=== PATIENT | male | born 1945 | race Caucasian/White ===

== ENCOUNTER 2019-10-14 19:59 | Inpatient (IN) | payer OTHER, SELFPAY ==
--- NOTE | ~2019-10-14 | XR_ITS ---
XR chest 1V portable 10/14/2019 21:03 Indication: Cough with shortness of breath. COVID. Procedure: AP portable chest Comparison: No prior studies for comparison. Findings: Cardiomegaly. Left lung clear. Right basilar airspace disease. No pleural effusion, edema o r pneumothorax. No acute osseous abnormality. Impression: 1: Right basilar airspace disease, compatible with pneumonia. Reviewed, dictated and finalized at location A. Impression: 1: Right basilar airspace disease, compatible with pneumonia.
--- NOTE | ~2019-10-14 | XR_ITS ---
EXAMINATION: XR chest 1V portable EXAM DATE: 10/18/2019 21:22 INDICATION: For distress. COVID 19 positive. TECHNIQUE: Frontal and lateral projections of the chest obtained and reviewed. Comparison is made to prior examination from 10/14/2019. FINDINGS: Previous exam had subsegmental right basilar airspace disease. There is now extensive right -sided peripheral airspace disease and smaller amount of left sided ill-defined airspace disease. Giv en history provided, most likely acute lung injury from underlying viral infection. Possible small pl eural effusions. No pneumothorax. Cardiac silhouette is enlarged but stable in size compared to prior exam. There is pulmonary vascular congestion. IMPRESSION: Progression of now extensive right, small left sided acute airspace disease. Reviewed, dictated and finalized at location A. IMPRESSION: Progression of now extensive right, small left sided acute airspac e disease.
--- NOTE | ~2019-10-14 | XR_ITS ---
EXAMINATION: XR chest 1V portable DATE: 10/20/2019 05:44 INDICATION: Shortness of breath. COVID-19 pneumonia. TECHNIQUE: A single frontal view of the chest was obtained. COMPARISON: Chest single view 10/18/2019 FINDINGS: There are patchy airspace opacities in all lung zones bilaterally. No pleural effusion or p neumothorax. Cardiomegaly is noted. IMPRESSION: 1. Diffuse lung disease with slight worsening on the left, consistent with pneumonia versus pulmonary edema versus acute respiratory distress syndrome (ARDS). 2. Cardiomegaly. Reviewed, dictated and finalized at location A. IMPRESSION: 1. Diffuse lung disease with slight worsening on the left, consistent with pneu monia versus pulmonary edema versus acute respiratory distress syndrome (ARDS). 2. Cardiomegaly.
--- NOTE | ~2019-10-14 | XR_ITS ---
EXAMINATION: XR chest 1V portable DATE: 10/21/2019 05:50 INDICATION: Shortness of breath. COVID-19 pneumonia. TECHNIQUE: A single frontal view of the chest was obtained. COMPARISON: Chest single view 10/20/2019 FINDINGS: There are patchy airspace opacities in all lung zones bilaterally, right worse than left. N o pleural effusion or pneumothorax. The heart size is normal. IMPRESSION: 1. Diffuse lung disease with slight improvement, consistent with pneumonia versus pulmonary edema xin missy acute respiratory distress syndrome (ARDS). Reviewed, dictated and finalized at location A. IMPRESSION: 1. Diffuse lung disease with slight improvement, consistent with pneumonia vers us pulmonary edema versus acute respiratory distress syndrome (ARDS).
[2019-10-14 20:12] VITALS: BP 121/64; PULSE 59; RESP 20; TEMP 36.8; O2SAT 96
--- NOTE | 2019-10-14 20:20 | ECG_ITS ---
Measurements Intervals Roann Rate: 59 P: 87 MS: 188 QRS: -29 QRSD: 121 T: 66 QT: 388 QTc: 385 Interpretive Statements SINUS BRADYCARDIA INTRAVENTRICULAR CONDUCTION DELAY DELAYED PRECORDIAL R/S TRANSITION BASELINE WANDER- I, II, AVR, AVL, AVF BORDERLINE ECG Electronically Signed On 10-15-2019 7:06:42 CDT by Wilfredo Hernández D.O.
[2019-10-14 20:47] LABS: Basophils Percent Auto 0.1 % (0.2-1.2); Eosinophils Absolute Auto 0.1 K/mm3 (0-0.3); Eosinophils Percent Auto 1.4 % (0-4.4); Hematocrit 28.3 % (42.0-52.0); Hemoglobin 9.2 g/dL (14.0-18.0); Immature Granulocyte Absolute 0.07 K/mm3 (0.00-0.031); Immature Granulocyte Percent A 0.8 % (0-0.5); Lymphocytes Absolute Auto 0.72 K/mm3 (0.9-3.2); Lymphocytes Percent Auto 8.3 % (18.3-44.2); Mean Corpuscular HGB Conc 32.5 g/dl (32-36); Mean Corpuscular Hemoglobin 29.7 pg (26-34); Mean Corpuscular Volume 91.3 fl (80-100); Mean Platelet Volume 9.8 fl (7.4-10.4); Monocytes Absolute Auto 0.5 K/mm3 (0.1-0.6); Monocytes Percent Auto 5.9 % (2.6-8.5); Neutrophils Absolute Auto 7.3 K/mm3 (1.3-6.7); Neutrophils Percent Auto 83.5 % (45.5-73.1); Platelet Count Result 150 k/mm3 (150-375); Red Cell Distribution Width 13.1 % (11.5-14.5); White Blood Count 8.7 K/mm3 (4.5-10.0)
--- NOTE | 2019-10-14 20:49 | ED.GENADULT ---
HPI - General Adult General Chief complaint: Unspecified Stated complaint: decreased appetite Time Seen by Provider: 10/14/19 20:02 Source: RN notes reviewed History of Present Illness HPI narrative: Patient presents emergency department from home via EMS for weakness. Patient states he was diagnosed with COVID-19 9 days ago. He states that he has been progressively more weak states he has had 2 episodes of diarrhea today as well as an episode of emesis. He denies any current abdominal pain he states he has been having intermittent fevers he denies any chest pain. He does state he has been having remittent shortness of breath with a cough Related Data Home Medications Medication Instructions Recorded Confirmed amlodipine 10 mg PO DAILY 10/14/19 10/14/19 atorvastatin 20 mg PO DAILY 10/14/19 10/14/19 carvedilol 25 mg PO BID 10/14/19 10/14/19 glimepiride 1 mg PO DAILY 10/14/19 10/14/19 lisinopril 10 mg PO DAILY 10/14/19 10/14/19 patiromer calcium sorbitex 8.4 g PO DAILY 10/14/19 10/14/19 [Veltassa] sitagliptin [Januvia] 100 mg PO DAILY 10/14/19 10/14/19 Allergies Allergy/AdvReac Type Severity Reaction Status Date / Time Sulfa (Sulfonamide Allergy Unknown Verified 10/14/19 20:18 Antibiotics) Review of Systems Review of Systems: Narrative: Gen.: Reports fevers and chills Eyes: Denies eye pain or visual change ENT: Denies congestion Respiratory: Reports cough and shortness of breath CV: Denies chest pain or palpitations GI: Denies abdominal pain reports nausea vomiting and diarrhea Musculoskeletal: Denies back pain or muscle pain Neuro: Denies numbness, tingling, weakness or focal weakness Skin: Denies rash Except as documented, all other systems reviewed and negative [facility] Past Medical History Medical History (Updated 10/14/19 @ 22:50 by Casimiro Linda DO) Chronic renal insufficiency Social History Social History (Updated 10/14/19 @ 21:41 by Casimiro Linda DO) Smoking status: Never smoker Exam Narrative: Exam Narrative: APPEARANCE: No acute distress, nontoxic, resting in bed EYES: EOMI HEENT: Normocephalic, atraumatic, oromucosa dry RESPIRATORY: No respiratory distress Clear to auscultation bilaterally with no rhonchi wheezing or rales. CARDIOVASCULAR: Regular rate and rhythm without murmurs rubs or gallops. ABDOMINAL: Soft, nontender, nondistended, no rebound or guarding MUSCULOSKELETAl: Moves all extremities. No clubbing, cyanosis or edema. NEURO: Awake and alert. Following commands, speech normal, no focal deficits SKIN:: Warm, dry. No rashes lesions or abrasions PSYCHIATRIC: Normal affect/mood, Course Course Emergency Course: Patient states he has a history of chronic renal insufficiency followed by Dr. salguero does not know baseline creatinine Discussed with Dr. Marcelino presentation work-up agrees with admission at this time Discussed with patient and family results of workup and diagnosis. Discussed need for admission. Patient and family understand and agree to current treatment plan Vital Signs Vital signs: Vital Signs Temperature 98.2 F 10/14/19 20:12 Pulse Rate 59 L 10/14/19 20:12 Respiratory Rate 20 10/14/19 20:12 Blood Pressure 121/64 10/14/19 20:12 Pulse Oximetry 96 10/14/19 20:12 Temperature 98.2 F 10/14/19 20:12 Pulse Rate 64 10/14/19 22:27 Respiratory Rate 20 10/14/19 22:27 Blood Pressure 125/66 10/14/19 22:27 Pulse Oximetry 98 10/14/19 22:27 Medical Decision Making Vital Signs Vital Signs: Vital Signs Temperature 98.2 F 10/14/19 20:12 Pulse Rate 59 L 10/14/19 20:12 Respiratory Rate 20 10/14/19 20:12 Blood Pressure 121/64 10/14/19 20:12 Pulse Oximetry 96 10/14/19 20:12 Temperature 98.2 F 10/14/19 20:12 Pulse Rate 64 10/14/19 22:27 Respiratory Rate 20 10/14/19 22:27 Blood Pressure 125/66 10/14/19 22:27 Pulse Oximetry 98 10/14/19 22:27 Lab Data Result diagrams: 10/14/19 20:40
[2019-10-14 20:56] LABS: INR 0.9; Prothrombin Time 12.3 Seconds (11.1-14.7)
[2019-10-14 20:57] LABS: Partial Thromboplastin Time 32.5 SECONDS (22.3-36.8)
[2019-10-14 20:58] VITALS: BP 134/68; PULSE 60; RESP 20; O2SAT 97
[2019-10-14 21:01] LABS: Lactic Acid Reflex 0.6 mmol/L (0.7-2.1)
[2019-10-14 21:02] LABS: Alanine Aminotransferase 18 U/L (4-50); Albumin Level 3.4 g/dL (3.5-5.1); Alkaline Phosphatase 89 U/L (38-126); Aspartate Amino Transferase 30 U/L (17-59); Bilirubin,Total 0.2 mg/dL (0.2-1.3); Blood Urea Nitrogen 57 mg/dL (9-20); Calcium 8.2 mg/dL (8.4-10.2); Carbon Dioxide 19 mmol/L (22-30); Chloride 110 mmol/L (98-107); Estimated Glomerular Filt Rate 18; Glucose 128 mg/dL (75-110); Lipase 158 U/L (23-300); Potassium 4.8 mmol/L (3.4-5.0); Sodium 137 mmol/L (137-145)
[2019-10-14] MEDS: SODIUM CHLORIDE 0.9% IV 1,000 ML 999 ML IV CONT (21:05)
[2019-10-14 21:53] LABS: Add Urine Microscopic? YES; Appearance Urine Clear (Clear); Bacteria Urine Trace /hpf; Bilirubin Urine Negative (Negative); Blood Urine Negative (Negative); Color Urine Yellow (Yellow); Glucose Urine UA Negative (Negative); Ketones Urine Negative (Negative); Leukocyte Esterase Ur Negative LEU/UL (Negative); Mucus Urine Rare /lpf; Nitrate Urine Negative (Negative); Protein Urine 2+ mg/dL (Negative); RBC Urine 0-2 /hpf (0-2); Specific Grav Ur 1.016 (1.001-1.035); Squamous Epithelial Cell Urine Rare /hpf (Few); Urobilinogen Urine Negative mg/dL (<2.0); WBC Urine 0-3 /hpf
[2019-10-14 22:27] VITALS: BP 125/66; PULSE 64; RESP 20; O2SAT 98
[2019-10-14 22:59] VITALS: BP 139/69; PULSE 67; RESP 20; O2SAT 97
[2019-10-14 23:46] VITALS: BP 142/66; PULSE 68; RESP 20; O2SAT 97
[2019-10-15] VITALS (16 sets, daily range): BP systolic 118–145; BP diastolic 51–66; PULSE 56–78; RESP 14–22; TEMP 36.6–38.4; O2SAT 92–96; BMI 31.3
[2019-10-15] MEDS: SODIUM CHLORIDE 0.9% IV 1,000 ML 80 ML IV CONT ×2 (00:44→12:20)
--- NOTE | 2019-10-15 01:13 | ADMGEN ---
This patient, Abel Pike, was admitted to Intensive Care Unit-2 at 2355. Patient/family oriented to hospital policies and general routines including ID bracelet, bed and alarms, visiting hours, pain management, procedures, bathroom and other care routines, personal items, smoking policy, room service/diet, and visiting hours. Valuables list has been completed. Information on how to activate the Rapid Response Team has been discussed. Patient/Family are encouraged to report perceived risks to care and to ask questions if they do not understand what they are told or what they should do.
[2019-10-15] MEDS: ACETAMINOPHEN 325 MG TABLET 650 MG PO ×2 (03:34→20:52)
--- NOTE | 2019-10-15 05:17 | PM.IMHP ---
H&P: HPI History of Present Illness Chief complaint: COVID-19 positive, acute renal insufficiency, Narrative: Date and time of patient contact: 10/15/2019 at 3:00 a.m. Abel Pike is a 74 year old male with a past medical history of chronic kidney disease, hypertension, type 2 diabetes mellitus and COVID-19 positive result 10 days ago who presented to the ER with nausea vomiting and diarrhea the patient reports that he has had a temperature as high as 101.9? at home that started 10 days ago. It was accompanied by fatigue. Three days later he had sudden onset of nausea vomiting and diarrhea that lasted 24 hours and resolved. On he has had a mild nonproductive cough. He denies any loss of taste or smell but has developed nasal congestion over the last 3 days. He does have a history of chronic sinusitis and chronic postnasal drip for which she has slept in a recliner for the last 10 years. He denies any chest pain but has had some mild shortness of breath. On the he had a return of the nausea vomiting and diarrhea and decided to return to the ER for evaluation. He has not noticed any significant lower extremity swelling and denies any calf pain. He denies any known recent ill contacts but does do all the shopping for him and his . He has been trying to minimize his 's exposure to ill contacts that she has a history of COPD. He does think that his now has COVID-19 but she is having much milder symptoms than he has. He has had a mild headache. He denies any visual changes or localized weakness. Source of information is patient report. The patient is a fairly good historian. Review of Systems Review of Systems: Narrative: 12 systems were reviewed with pertinent positives and negatives per HPI. Except as documented in the HPI, all other systems were reviewed and are negative. 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 Abnormal some on the left hand Eczema Essential hypertension Hyperlipidemia Prostate cancer With history of cryoablation Type 2 diabetes mellitus Ulcer Surgical History Surgical History (Updated 10/15/19 @ 05:25 by Rebecca Marcelino DO) Status post cataract extraction of both eyes with insertion of intraocular lens Family History Family History (Updated 10/15/19 @ 05:27 by Rebecca Marcelino DO) Father Lung cancer Mother Ovarian cancer Daughter Chronic lung disease Morbid obesity Social History Social History (Updated 10/15/19 @ 05:30 by Rebecca Marcelino DO) Social History: Primary care physician: Dr. Srikanth Danielson Code status: Full code Smoking status: Never smoker Alcohol intake: never Alcohol use details: The patient only rarely drink and only in moderation but quit drinking in 1975 when he found J[facility]ani. Substance use: never Additional living arrangements comments: He lives in [place] with his of 43 years. He has total of 6 children 5 of which are still living and her relatively healthy. He had 1 daughter who of morbid obesity and chronic lung disease. He is independent in activities of daily living. 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 Gender identity (if verbalized by the patient): Male Spiritual care concerns: No Meds Home Medications and Allergies Home Medications Medication Instructions Recorded Confirmed Type amlodipine 10 mg PO DAILY 10/14/19 10/14/19 History atorvastatin 20 mg PO DAILY 10/14/19 10/14/19 History carvedilol 25 mg PO BID 10/14/19 10/14/19 History glimepiride 1 mg PO DAILY 10/14/19 10/14/19 History lisinopril 10 mg PO DAILY 10/14/19 10/14/19 History kurtis
[2019-10-15 06:14] LABS: Basophils Percent Auto 0.1 % (0.2-1.2); Eosinophils Absolute Auto 0.1 K/mm3 (0-0.3); Eosinophils Percent Auto 1.2 % (0-4.4); Hematocrit 25.8 % (42.0-52.0); Hemoglobin 8.3 g/dL (14.0-18.0); Immature Granulocyte Absolute 0.09 K/mm3 (0.00-0.031); Immature Granulocyte Percent A 1.2 % (0-0.5); Lymphocytes Absolute Auto 0.88 K/mm3 (0.9-3.2); Mean Corpuscular HGB Conc 32.2 g/dl (32-36); Mean Corpuscular Hemoglobin 29.6 pg (26-34); Mean Corpuscular Volume 92.1 fl (80-100); Mean Platelet Volume 9.6 fl (7.4-10.4); Monocytes Absolute Auto 0.5 K/mm3 (0.1-0.6); Monocytes Percent Auto 6.3 % (2.6-8.5); Neutrophils Absolute Auto 5.8 K/mm3 (1.3-6.7); Neutrophils Percent Auto 79.2 % (45.5-73.1); Platelet Count Result 143 k/mm3 (150-375); Red Cell Distribution Width 12.9 % (11.5-14.5); White Blood Count 7.3 K/mm3 (4.5-10.0)
[2019-10-15 06:23] LABS: Blood Urea Nitrogen 52 mg/dL (9-20); Calcium 7.7 mg/dL (8.4-10.2); Carbon Dioxide 18 mmol/L (22-30); Chloride 114 mmol/L (98-107); Estimated CRCL calculation 23 ml/min; Estimated Glomerular Filt Rate 19; Glucose 94 mg/dL (75-110); Potassium 4.5 mmol/L (3.4-5.0); Sodium 139 mmol/L (137-145)
[2019-10-15] MEDS: lisinopriL 10 MG TABLET PO (09:37)
[2019-10-15] MEDS: HEPARIN SODIUM 5,000 UNITS/ML VIAL 5000 UNITS SUB-Q ×2 (09:37→20:39)
[2019-10-15] MEDS: AMLODIPINE BESYLATE 5 MG TABLET 10 MG PO (09:37)
[2019-10-15] MEDS: carvediloL 25 MG TABLET PO ×2 (09:37→20:39)
[2019-10-15] MEDS: ATORVASTATIN 20 MG TABLET PO (09:37)
[2019-10-15 10:07] LABS: D Dimer 1.64 ug/mL (<0.48)
[2019-10-15 10:09] LABS: CRP 6.7 mg/dL (<1.0)
--- NOTE | 2019-10-15 10:39 | PC.NURSE ---
This patient, Abel Pike, was received from [icu ] on 10/15/19 at 1039. Patient/family oriented to unit policies and routines
--- NOTE | 2019-10-15 10:44 | PC.NURSE ---
This patient, Abel Pike, was transferred to [330 m/s ] on 10/15/19 at 1030. Personal belongings sent with patient. 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 Report given to [janett shetty rn ]. Appropriate documentation sent with patient.
[2019-10-15 12:23] LABS: Glucose Point of Care 199 (65-105)
--- NOTE | 2019-10-15 17:25 | PM.IMPN ---
Progress Note: A&P Assessment and Plan (1) Pneumonia due to COVID-19 virus: Code(s): U07.1 - COVID-19; J12.89 - Other viral pneumonia Status: Acute Assessment and Plan: Will continue antibiotic therapy with azithromycin. Patient did receive 1 dose of Rocephin. If blood cultures remain negative will discontinue Rocephin. Patient does not have an oxygen requirement but does have periods where his oxygen saturations dropped to 92%. Continue supportive care and airborne isolation. 10/15/19 17:25 Patient with COVID-19 with diagnosed 9 days ago, states today the 1st time he was able to eat his symptoms have improved denies any cough fever or chills denies any abdominal pain, (2) Acute on chronic renal failure: Code(s): N17.9 - Acute kidney failure, unspecified; N18.9 - Chronic kidney disease, unspecified Status: Acute Assessment and Plan: Likely due to some mild volume depletion. The patient accidentally took a dose of ibuprofen 9 or 10 days ago. He has not had any further ibuprofen and Tylenol has been helping his fever. Will continue low-dose lisinopril as this may have a productive of affect with COVID-19. Will hold the patient's home glimepiride will also hold the patient's Januvia given his drop in renal function. The patient's baseline creatinine is not known but the patient is followed by Dr. Morton. If is repeat electrolyte panel does not demonstrate improvement in his renal function nephrology will be consulted. Due to a computer entry glitch patient had initially been admitted to IMU. The patient is hemodynamically stable and will transfer to [address] [place] [address] surg. Subjective Date/time seen: 10/15/19 17:25 Patient with COVID-19 with diagnosed 9 days ago, states today the 1st time he was able to eat his symptoms have improved denies any cough fever or chills denies any abdominal pain, Review of Systems Review of Systems: All systems reviewed & are unremarkable except as noted in HPI and below Exam Narrative: Exam Narrative: Patient was seen in the room but not examine temperature is 99? pulses cyst respiratory is 18, pulse ox is 94% at room air blood pressure is 120/54 Const: General: comfortable and no acute distress Neck: Other: No retraction Resp: Effort & Inspection: normal respiratory effort GI: Other: Nondistended Skin: General skin exam: normal color Neuro: Speech: normal speech Extrem: General: normal to inspection Psych: Affect: Anxious affect present Objective Data Vital Signs Vital Signs: Vital Signs - 24 hr 10/14/19 20:12 10/14/19 20:58 10/14/19 22:27 Temperature 98.2 F Pulse Rate 59 L 60 64 Respiratory Rate 20 20 20 Blood Pressure 121/64 134/68 125/66 Pulse Oximetry 96 97 98 10/14/19 22:59 10/14/19 23:46 10/15/19 00:00 Temperature 101 F H Pulse Rate 67 68 69 Respiratory Rate 20 20 22 H Blood Pressure 139/69 142/66 H 130/59 L Pulse Oximetry 97 97 95 10/15/19 03:34 10/15/19 03:57 10/15/19 04:00 Temperature 101.1 F H 101 F H Pulse Rate 71 72 Respiratory Rate 17 Blood Pressure Pulse Oximetry 92 10/15/19 04:34 10/15/19 04:59 10/15/19 06:17 Temperature 101 F H 98.4 F Pulse Rate Respiratory Rate Blood Pressure 118/54 L Pulse Oximetry 10/15/19 08:00 10/15/19 09:37 10/15/19 14:00 Temperature 97.8 F 99.0 F Pulse Rate 62 62 5 L Respiratory Rate 14 18 Blood Pressure 145/66 H 120/54 L Pulse Oximetry 96 94 Intake/Output Intake/Output: Intake & Output 10/12/19 10/13/19 10/14/19 10/15/19 23:59 23:59 23:59 23:59 Intake Total 1050 1470 Output Total 250 Balance 1050 1220 Meds/Results Medications: Active Medications Generic Name Dose Route Start Last Admin Trade Name Freq PRN Reason Stop Dose Admin Acetaminophen 650 mg 10/15/19 02:20 10/15/19 03:34 Tylenol Tablet PO 650 mg Q4H PRN Administration Mild Pain (1-3) or Fever Amlodipine Besylate 10 mg 10/15/19 09:00
[2019-10-15 21:53] LABS: Glucose Point of Care 140 (65-105)
[2019-10-16] VITALS (7 sets, daily range): BP systolic 121–146; BP diastolic 59–63; PULSE 62–77; RESP 16–20; TEMP 36.7–37.5; O2SAT 93–95
[2019-10-16] MEDS: SODIUM CHLORIDE 0.9% IV 1,000 ML 80 ML IV CONT ×2 (04:56→17:45)
[2019-10-16 06:04] LABS: Glucose Point of Care 132 (65-105)
[2019-10-16 06:41] LABS: Basophils Percent Auto 0.1 % (0.2-1.2); Eosinophils Absolute Auto 0.2 K/mm3 (0-0.3); Eosinophils Percent Auto 2.8 % (0-4.4); Hematocrit 24.4 % (42.0-52.0); Hemoglobin 7.7 g/dL (14.0-18.0); Immature Granulocyte Absolute 0.12 K/mm3 (0.00-0.031); Immature Granulocyte Percent A 1.5 % (0-0.5); Lymphocytes Absolute Auto 1.08 K/mm3 (0.9-3.2); Lymphocytes Percent Auto 13.3 % (18.3-44.2); Mean Corpuscular HGB Conc 31.6 g/dl (32-36); Mean Corpuscular Hemoglobin 29.4 pg (26-34); Mean Corpuscular Volume 93.1 fl (80-100); Mean Platelet Volume 9.3 fl (7.4-10.4); Monocytes Absolute Auto 0.6 K/mm3 (0.1-0.6); Monocytes Percent Auto 7.3 % (2.6-8.5); Neutrophils Absolute Auto 6.1 K/mm3 (1.3-6.7); Platelet Count Result 142 k/mm3 (150-375); Red Blood Count 2.62 M/mm3 (4.6-6.20); Red Cell Distribution Width 13.1 % (11.5-14.5); White Blood Count 8.1 K/mm3 (4.5-10.0)
[2019-10-16 07:00] LABS: Alanine Aminotransferase 17 U/L (4-50); Albumin Level 2.8 g/dL (3.5-5.1); Alkaline Phosphatase 79 U/L (38-126); Aspartate Amino Transferase 30 U/L (17-59); Bilirubin,Total 0.1 mg/dL (0.2-1.3); Blood Urea Nitrogen 50 mg/dL (9-20); CRP 7.9 mg/dL (<1.0); Calcium 7.5 mg/dL (8.4-10.2); Carbon Dioxide 18 mmol/L (22-30); Chloride 115 mmol/L (98-107); Estimated CRCL calculation 23 ml/min; Estimated Glomerular Filt Rate 19; Glucose 99 mg/dL (75-110); Potassium 4.5 mmol/L (3.4-5.0); Sodium 140 mmol/L (137-145)
[2019-10-16] MEDS: AMLODIPINE BESYLATE 5 MG TABLET 10 MG PO (09:09)
[2019-10-16] MEDS: ATORVASTATIN 20 MG TABLET PO (09:09)
[2019-10-16] MEDS: lisinopriL 10 MG TABLET PO (09:09)
[2019-10-16] MEDS: HEPARIN SODIUM 5,000 UNITS/ML VIAL 5000 UNITS SUB-Q ×2 (09:10→21:29)
[2019-10-16 09:31] LABS: Glucose Point of Care 101 (65-105)
[2019-10-16] MEDS: carvediloL 25 MG TABLET PO ×2 (09:31→20:41)
[2019-10-16 13:30] LABS: Glucose Point of Care 90 (65-105)
--- NOTE | 2019-10-16 17:11 | PM.IMPN ---
Progress Note: A&P Assessment and Plan (1) Pneumonia due to COVID-19 virus: Code(s): U07.1 - COVID-19; J12.89 - Other viral pneumonia Status: Acute Assessment and Plan: Will continue antibiotic therapy with azithromycin. Patient did receive 1 dose of Rocephin. If blood cultures remain negative will discontinue Rocephin. Patient does not have an oxygen requirement but does have periods where his oxygen saturations dropped to 92%. Continue supportive care and airborne isolation. 10/16/19 17:11 Patient with COVID-19 with diagnosed 10 days ago, stated on 10/14 the 1st time he was able to eat his meal, symptoms have improved denies any cough fever or chills denies any abdominal pain, still has low-grade fever (2) Acute on chronic renal failure: Code(s): N17.9 - Acute kidney failure, unspecified; N18.9 - Chronic kidney disease, unspecified Status: Acute Assessment and Plan: Likely due to some mild volume depletion. The patient accidentally took a dose of ibuprofen 9 or 10 days ago. He has not had any further ibuprofen and Tylenol has been helping his fever. Will continue low-dose lisinopril as this may have a productive of affect with COVID-19. Will hold the patient's home glimepiride will also hold the patient's Januvia given his drop in renal function. The patient's baseline creatinine is not known but the patient is followed by Dr. Morton. If is repeat electrolyte panel does not demonstrate improvement in his renal function nephrology will be consulted. Due to a computer entry glitch patient had initially been admitted to IMU. The patient is hemodynamically stable and will transfer to [address] [place] [address] surg. Subjective Date/time seen: 10/16/19 17:11 Patient with COVID-19 with diagnosed 10 days ago, stated on 10/14 the 1st time he was able to eat his meal, symptoms have improved denies any cough fever or chills denies any abdominal pain, still has low-grade fever Review of Systems Review of Systems: All systems reviewed & are unremarkable except as noted in HPI and below Exam Narrative: Exam Narrative: Patient was seen in the room but not examine temperature temperature is 99? pulse is 70 respiratory is 9 pulse ox 94% on room air blood pressure is 146/62 Const: General: comfortable and no acute distress Neck: Other: No retraction Resp: Effort & Inspection: normal respiratory effort GI: Other: Nondistended Skin: General skin exam: normal color Neuro: Speech: normal speech Extrem: General: normal to inspection Psych: Affect: Anxious affect present Objective Data Vital Signs Vital Signs: Vital Signs - 24 hr 10/15/19 18:00 10/15/19 19:30 10/15/19 20:39 Temperature 100.4 F H Pulse Rate 69 78 Respiratory Rate 18 20 Blood Pressure 134/63 Pulse Oximetry 96 94 10/15/19 20:52 10/15/19 21:48 10/15/19 21:50 Temperature 100.7 F H 100.7 F H 100.5 F H Pulse Rate 78 Respiratory Rate 18 Blood Pressure 123/51 L Pulse Oximetry 94 10/16/19 02:00 10/16/19 05:54 10/16/19 09:31 Temperature 98.5 F 98.0 F Pulse Rate 62 69 71 Respiratory Rate 20 18 Blood Pressure 138/63 121/59 L Pulse Oximetry 94 95 10/16/19 10:00 Temperature 99.0 F Pulse Rate 71 Respiratory Rate 19 Blood Pressure 146/62 H Pulse Oximetry 94 Intake/Output Intake/Output: Intake & Output 10/13/19 10/14/19 10/15/19 10/16/19 23:59 23:59 23:59 23:59 Intake Total 1050 2720 1200 Output Total 250 75 Balance 1050 2470 1125 Meds/Results Medications: Active Medications Generic Name Dose Route Start Last Admin Trade Name Freq PRN Reason Stop Dose Admin Acetaminophen 650 mg 10/15/19 02:20 10/15/19 20:52 Tylenol Tablet PO 650 mg Q4H PRN Administration Mild Pain (1-3) or Fever Amlodipine Besylate 10 mg 10/15/19 09:00 10/16/19 09:09 Norvasc PO 10 mg DAILY ALENA Administration Atorvastatin Calcium 20 mg 10/15/19 09:00 10/16/19 09:09 Lipitor PO 20
[2019-10-16 18:32] LABS: Glucose Point of Care 81 (65-105)
[2019-10-16 21:31] LABS: Glucose Point of Care 124 (65-105)
[2019-10-17] VITALS (12 sets, daily range): BP systolic 121–140; BP diastolic 49–66; PULSE 60–77; RESP 16–20; TEMP 37–38; O2SAT 93–97; BMI 31.5
[2019-10-17] MEDS: ACETAMINOPHEN 325 MG TABLET 650 MG PO ×2 (05:57→22:43)
[2019-10-17] MEDS: SODIUM CHLORIDE 0.9% IV 1,000 ML 80 ML IV CONT ×2 (06:03→18:35)
[2019-10-17 06:25] LABS: Basophils Percent Auto 0.1 % (0.2-1.2); Eosinophils Absolute Auto 0.2 K/mm3 (0-0.3); Eosinophils Percent Auto 3.2 % (0-4.4); Hematocrit 24.4 % (42.0-52.0); Hemoglobin 7.6 g/dL (14.0-18.0); Immature Granulocyte Absolute 0.12 K/mm3 (0.00-0.031); Immature Granulocyte Percent A 1.7 % (0-0.5); Lymphocytes Absolute Auto 0.92 K/mm3 (0.9-3.2); Lymphocytes Percent Auto 13.4 % (18.3-44.2); Mean Corpuscular HGB Conc 31.1 g/dl (32-36); Mean Corpuscular Hemoglobin 29.1 pg (26-34); Mean Corpuscular Volume 93.5 fl (80-100); Mean Platelet Volume 9.4 fl (7.4-10.4); Monocytes Absolute Auto 0.5 K/mm3 (0.1-0.6); Monocytes Percent Auto 7.6 % (2.6-8.5); Neutrophils Absolute Auto 5.1 K/mm3 (1.3-6.7); Platelet Count Result 167 k/mm3 (150-375); Red Blood Count 2.61 M/mm3 (4.6-6.20); Red Cell Distribution Width 12.9 % (11.5-14.5); White Blood Count 6.9 K/mm3 (4.5-10.0)
[2019-10-17 06:35] LABS: Alanine Aminotransferase 18 U/L (4-50); Albumin Level 2.7 g/dL (3.5-5.1); Alkaline Phosphatase 71 U/L (38-126); Aspartate Amino Transferase 31 U/L (17-59); Bilirubin,Total 0.1 mg/dL (0.2-1.3); Blood Urea Nitrogen 46 mg/dL (9-20); CRP 8.3 mg/dL (<1.0); Calcium 7.6 mg/dL (8.4-10.2); Carbon Dioxide 18 mmol/L (22-30); Chloride 118 mmol/L (98-107); Estimated CRCL calculation 24 ml/min; Estimated Glomerular Filt Rate 21; Glucose 101 mg/dL (75-110); Potassium 4.7 mmol/L (3.4-5.0); Sodium 142 mmol/L (137-145)
[2019-10-17] MEDS: AMLODIPINE BESYLATE 5 MG TABLET 10 MG PO (09:30)
[2019-10-17] MEDS: HEPARIN SODIUM 5,000 UNITS/ML VIAL 5000 UNITS SUB-Q ×2 (09:30→20:57)
[2019-10-17] MEDS: ATORVASTATIN 20 MG TABLET PO (09:30)
[2019-10-17] MEDS: carvediloL 25 MG TABLET PO ×2 (09:30→20:57)
[2019-10-17] MEDS: lisinopriL 10 MG TABLET PO (09:30)
[2019-10-17 14:26] LABS: Glucose Point of Care 98 (65-105)
[2019-10-17 14:26] LABS: Glucose Point of Care 138 (65-105)
--- NOTE | 2019-10-17 18:26 | PM.IMPN ---
Progress Note: A&P Assessment and Plan (1) Pneumonia due to COVID-19 virus: Code(s): U07.1 - COVID-19; J12.89 - Other viral pneumonia Status: Acute Assessment and Plan: Will continue antibiotic therapy with azithromycin. Patient did receive 1 dose of Rocephin. If blood cultures remain negative will discontinue Rocephin. Patient does not have an oxygen requirement but does have periods where his oxygen saturations dropped to 92%. Continue supportive care and airborne isolation. 10/17/19 18:26 Patient with COVID-19 with diagnosed 10 days ago, stated on 10/14 the 1st time he was able to eat his meal, symptoms have improved denies any cough fever or chills denies any abdominal pain, still has low-grade fever, number of BM are improving however he feels tired and has low-grade fever (2) Acute on chronic renal failure: Code(s): N17.9 - Acute kidney failure, unspecified; N18.9 - Chronic kidney disease, unspecified Status: Acute Assessment and Plan: Likely due to some mild volume depletion. The patient accidentally took a dose of ibuprofen 9 or 10 days ago. He has not had any further ibuprofen and Tylenol has been helping his fever. Will continue low-dose lisinopril as this may have a productive of affect with COVID-19. Will hold the patient's home glimepiride will also hold the patient's Januvia given his drop in renal function. The patient's baseline creatinine is not known but the patient is followed by Dr. Morton. If is repeat electrolyte panel does not demonstrate improvement in his renal function nephrology will be consulted. Due to a computer entry glitch patient had initially been admitted to IMU. The patient is hemodynamically stable and will transfer to [address] [place] [address] surg. Subjective Date/time seen: 10/17/19 18:26 Patient with COVID-19 with diagnosed 10 days ago, stated on 10/14 the 1st time he was able to eat his meal, symptoms have improved denies any cough fever or chills denies any abdominal pain, still has low-grade fever, number of BM are improving however he feels tired and has low-grade fever Review of Systems Review of Systems: All systems reviewed & are unremarkable except as noted in HPI and below Exam Narrative: Exam Narrative: Patient was seen in the room but not examine temperature temperature is 98.6 pulse is 63 respiratory is 16 pulse ox 97% on room air blood pressure is 122/54 Const: General: comfortable and no acute distress Neck: Other: No retraction Resp: Effort & Inspection: normal respiratory effort GI: Other: Nondistended Skin: General skin exam: normal color Neuro: Speech: normal speech Extrem: General: normal to inspection Psych: Affect: Anxious affect present Objective Data Vital Signs Vital Signs: Vital Signs - 24 hr 10/16/19 20:41 10/16/19 22:00 10/17/19 02:00 Temperature 99.5 F 99.4 F Pulse Rate 77 68 73 Respiratory Rate 16 18 Blood Pressure 135/62 136/66 Pulse Oximetry 95 93 10/17/19 05:57 10/17/19 06:00 10/17/19 09:30 Temperature 99.5 F 99.5 F Pulse Rate 67 64 Respiratory Rate 20 Blood Pressure 129/59 L Pulse Oximetry 95 10/17/19 10:00 10/17/19 14:00 10/17/19 16:52 Temperature 98.7 F 98.6 F 98.8 F Pulse Rate 60 63 Respiratory Rate 16 16 Blood Pressure 121/63 122/54 L Pulse Oximetry 95 97 Intake/Output Intake/Output: Intake & Output 10/14/19 10/15/19 10/16/19 10/17/19 23:59 23:59 23:59 23:59 Intake Total 1050 2720 3170 2040 Output Total 250 275 500 Balance 1050 2470 2895 1540 Meds/Results Medications: Active Medications Generic Name Dose Route Start Last Admin Trade Name Rehanq PRN Reason Stop Dose Admin Acetaminophen 650 mg 10/15/19 02:20 10/17/19 05:57 Tylenol Tablet PO 650 mg Q4H PRN Administration Mild Pain (1-3) or Fever Amlodipine Besylate 10 mg 10/15/19 09:00 10/17/19 09:30 Norvasc PO 10 mg DAILY ALENA Administration Atorvastatin Calcium 20 mg 0
[2019-10-17 19:08] LABS: Glucose Point of Care 153 (65-105)
[2019-10-18] VITALS (14 sets, daily range): BP systolic 127–156; BP diastolic 50–84; PULSE 67–76; RESP 14–28; TEMP 36.6–37.3; O2SAT 77–95
[2019-10-18 01:42] LABS: Glucose Point of Care 136 (65-105)
[2019-10-18 06:12] LABS: Basophils Percent Auto 0.3 % (0.2-1.2); Eosinophils Absolute Auto 0.2 K/mm3 (0-0.3); Eosinophils Percent Auto 2.4 % (0-4.4); Hematocrit 23.8 % (42.0-52.0); Hemoglobin 7.6 g/dL (14.0-18.0); Immature Granulocyte Percent A 1.4 % (0-0.5); Lymphocytes Absolute Auto 0.91 K/mm3 (0.9-3.2); Lymphocytes Percent Auto 13.1 % (18.3-44.2); Mean Corpuscular HGB Conc 31.9 g/dl (32-36); Mean Corpuscular Hemoglobin 29.7 pg (26-34); Mean Platelet Volume 9.1 fl (7.4-10.4); Monocytes Absolute Auto 0.6 K/mm3 (0.1-0.6); Monocytes Percent Auto 8.1 % (2.6-8.5); Neutrophils Absolute Auto 5.2 K/mm3 (1.3-6.7); Neutrophils Percent Auto 74.7 % (45.5-73.1); Platelet Count Result 165 k/mm3 (150-375); Red Blood Count 2.56 M/mm3 (4.6-6.20); Red Cell Distribution Width 12.9 % (11.5-14.5)
[2019-10-18 06:29] LABS: Alanine Aminotransferase 19 U/L (4-50); Albumin Level 2.8 g/dL (3.5-5.1); Alkaline Phosphatase 71 U/L (38-126); Aspartate Amino Transferase 29 U/L (17-59); Bilirubin,Total 0.2 mg/dL (0.2-1.3); Blood Urea Nitrogen 39 mg/dL (9-20); Calcium 7.7 mg/dL (8.4-10.2); Carbon Dioxide 18 mmol/L (22-30); Chloride 120 mmol/L (98-107); Estimated CRCL calculation 27 ml/min; Estimated Glomerular Filt Rate 23; Glucose 127 mg/dL (75-110); Potassium 4.6 mmol/L (3.4-5.0); Sodium 143 mmol/L (137-145)
[2019-10-18 06:37] LABS: CRP 13.9 mg/dL (<1.0)
[2019-10-18] MEDS: AMLODIPINE BESYLATE 5 MG TABLET 10 MG PO (09:01)
[2019-10-18] MEDS: HEPARIN SODIUM 5,000 UNITS/ML VIAL 5000 UNITS SUB-Q ×2 (09:01→19:45)
[2019-10-18] MEDS: lisinopriL 10 MG TABLET PO (09:01)
[2019-10-18] MEDS: ATORVASTATIN 20 MG TABLET PO (09:01)
[2019-10-18] MEDS: carvediloL 25 MG TABLET PO (09:01)
[2019-10-18] MEDS: SODIUM CHLORIDE 0.9% IV 1,000 ML 80 ML IV CONT ×2 (09:03→19:45)
[2019-10-18 09:27] LABS: Glucose Point of Care 126 (65-105)
[2019-10-18] MEDS: ACETAMINOPHEN 325 MG TABLET 650 MG PO ×2 (12:43→23:04)
[2019-10-18 15:53] LABS: Glucose Point of Care 135 (65-105)
[2019-10-18 17:02] LABS: Glucose Point of Care 120 (65-105)
--- NOTE | 2019-10-18 17:57 | PM.IMPN ---
Progress Note: A&P Assessment and Plan (1) Pneumonia due to COVID-19 virus: Code(s): U07.1 - COVID-19; J12.89 - Other viral pneumonia Status: Acute Assessment and Plan: Will continue antibiotic therapy with azithromycin. BC are negative to date, so rocephin was stopped. Continue iv azithromycin and Iv fluids and oxygen Patient still symptomatic with fever, SOB and cough Continue to monitor Sats, watch for any further desaturation CXR for tomorrow Continue supportive care with IV abx, oxygen add albuterol nebuliser treatments or prednisone tomorrow if no better. Rpt cxr tomorrow Can discharge on medrol dose pack and zithromax on discharge (2) Acute on chronic renal failure: Code(s): N17.9 - Acute kidney failure, unspecified; N18.9 - Chronic kidney disease, unspecified Status: Acute Assessment and Plan: Likely due to dehydration and lisinopril and ibuprofen use Creat is 2.7 continue to hydrate Stop lisinopril creat is high increase coreg for BP control (3) Anemia, chronic disease: Code(s): D63.8 - Anemia in other chronic diseases classified elsewhere Status: Acute Assessment and Plan: HB is 7.6 may be dilutional effect continue to monitor or secondary to CKD Subjective Date/time seen: 10/18/19 17:57 Interval history: Patient with COVID-19 with diagnosed 10 days ago, stated on 10/14 the 1st time he was able to eat his meal, symptoms, still symptomatic with low grade fevers and SOB. Pt started on 2 liters today for respiratory distress. Cxr on admission showing pneumonia. Hopeful dischrage tomorrow if pt feels better, will rpt CXR ifrah prior to discharge. got sick taking care of who is also hospitalized. Pt SOB today with wet cough. Pt had low grade fevers last night. Express concerns about his Review of Systems Review of Systems: ROS unobtainable: Yes other (low grade fevers lethargy ) Respiratory: Respiratory: Reports chest congestion, Reports cough and Reports dyspnea Exam Narrative: Exam Narrative: Temp Pulse Resp BP Pulse Ox 37.3 C 70 24 H 127/62 92 10/18/19 14:00 10/18/19 14:00 10/18/19 14:00 10/18/19 14:00 10/18/19 17:16 Pleasant nature Pt looks unwell, SOB at rest Wet cough RRR Coarse breath sounds BL Objective Data Vital Signs Vital Signs: Vital Signs - 24 hr 10/17/19 18:00 10/17/19 20:57 10/17/19 22:00 Temperature 37.0 C 38.0 C H Pulse Rate 70 77 76 Respiratory Rate 18 20 Blood Pressure 124/49 L 140/61 Pulse Oximetry 94 93 10/17/19 22:43 10/17/19 23:40 10/18/19 02:00 Temperature 38.0 C H 37.7 C H 36.6 C Pulse Rate 70 Respiratory Rate 20 Blood Pressure 128/50 L Pulse Oximetry 95 10/18/19 06:00 10/18/19 09:01 10/18/19 10:00 Temperature 37.2 C 37.3 C Pulse Rate 70 76 73 Respiratory Rate 18 14 Blood Pressure 141/68 H 156/59 H Pulse Oximetry 95 93 10/18/19 14:00 10/18/19 15:00 10/18/19 16:09 Temperature 37.3 C Pulse Rate 70 Respiratory Rate 24 H Blood Pressure 127/62 Pulse Oximetry 89 L 87 L 92 10/18/19 17:16 Temperature Pulse Rate Respiratory Rate Blood Pressure Pulse Oximetry 92 Intake/Output Intake/Output: Intake & Output 10/15/19 10/16/19 10/17/19 10/18/19 23:59 23:59 23:59 23:59 Intake Total 2720 3170 3840 1650 Output Total 577 274 2277 950 Balance 2470 2895 2840 700 Meds/Results Medications: Active Medications Generic Name Dose Route Start Last Admin Trade Name Freq PRN Reason Stop Dose Admin Acetaminophen 650 mg 10/15/19 02:20 10/18/19 12:43 Tylenol Tablet PO 650 mg Q4H PRN Administration Mild Pain (1-3) or Fever Amlodipine Besylate 10 mg 10/15/19 09:00 10/18/19 09:01 Norvasc PO 10 mg DAILY ALENA Administration Atorvastatin Calcium 20 mg 10/15/19 09:0
[2019-10-18] MEDS: carvediloL 25 MG TABLET 50 MG PO (19:44)
[2019-10-18 20:09] LABS: Glucose Point of Care 121 (65-105)
[2019-10-18] MEDS: ALBUTEROL SULFATE (*SP) AEROSOL 1 PUFF 6 PUFF INHALATION (21:29)
[2019-10-18 21:32] LABS: Base Excess ABG -9.4 mEq/l (+/-2.0); Carboxyhemoglobin 0.2 % THb (0-2.0); Fractional Inspired Oxygen 36 %; HCO3 ABG 15.4 mEq/l (22.0-26.0); Methemoglobin ABG 0.5 %THb (0-1.5); Oxygen Content ABG 10.7 %vol (16.0-22.0); Oxygen Saturation ABG 92.1 % (95.0-100.0); PCO2 ABG 29.5 mmHg (35.0-45.0); PO2 ABG 65.5 mmHg (80.0-100.0); PO2 FiO2 Ratio Arterial Blood 1.82 %; Reduced Hemoglobin 8.3 %THb (0-5.0); Total Hemoglobin 8.3 g/dL (12.0-18.0); pH ABG 7.336 (7.350-7.450)
[2019-10-18 21:33] LABS: Lactate Dehydrogenase 636 U/L (313-618)
[2019-10-18 21:33] LABS: Modified Allen's Test Pass; Site Drawn RIGHT RADIAL
[2019-10-18 21:34] LABS: D Dimer 2.73 ug/mL (<0.48)
[2019-10-18 21:34] LABS: Device NASAL CANNULA
[2019-10-18] MEDS: FUROSEMIDE INJ 40 MG/4 ML VIAL (22:07)
--- NOTE | 2019-10-18 22:08 | PM.EVENT ---
Event Note Event Note Event Note: I received a call from nursing staff around 9:00 p.m. that the patient was having increasing oxygen requirement. When nursing staff did the rounds they found the patient to have sats in the mid 70s on 2 L nasal cannula. The nurse reports that the patient was also having increased work of breathing from baseline (the nurses is very familiar with the patient from prior multiple days of care). Patient's temperature is currently 99.6? after receiving Tylenol. His last fever was at midnight on the . On review of the patient's chart the patient's CRP has been climbing since admission. Initially his CRP was 6.7 is now 13.9. The patient was initially placed on some mild IV fluid hydration given his acute on chronic renal failure. The patient's creatinine had decreased down to 2.7 which is closer to his baseline however IV fluids were still continued. The patient is fluid positive by 10 L since admission. Patient's IV fluids have now been stopped. Had a chest x-ray since admissions will repeat chest x-ray was performed which demonstrated progression of now extensive right and small left-sided airspace disease. There was also some pulmonary vascular congestion noted on x-ray. They abnormalities could be due to acute lung injury given his COVID-19 infection and a component of fluid overload. A stat ferritin, LDH, D-dimer and ABG Were also ordered. By the time the patient's labs had resulted the patient's oxygen requirement had climbed to 6 L. and his respiratory rate had climbed to 28. An order for Lasix 40 mg IV push was ordered. I contacted the cement tester assistant to discuss the patient's clinical course and he agrees with plan to transfer the patient to the ICU given his rapid change in clinical status. He recommended adding Rocephin for antibiotic coverage. The patient is on day 4/5 of azithromycin. Temperature 99? pulse 69 respiratory rate 22 blood pressure 136/84 oxygen saturation on 6 L nasal cannula GENERAL: Mildly ill-appearing, appears stated age HEENT: Positive conjunctival pallor, pupils equal and reactive, nares patent, mucous membranes moist CARDIOVASCULAR: Regular rate, regular rhythm with frequent ectopy RESPIRATORY: Tachypnea, accessory muscle use, coarse breath sounds bilaterally ABDOMEN: Distended, nontender, positive bowel sounds INTEGUMENT: Diaphoretic, pale, warm to touch NEUROLOGIC: Alert and oriented, speech is clear, no facial asymmetry PSYCHIATRIC: Pleasant, cooperative, joking with staff EXTREMITIES: 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 COVID-19 infection 2. Acute hypoxic respiratory failure 3. Fluid overload Plan: Lasix 40 mg IV stat check a stat BMP Continue azithromycin in add Rocephin Add albuterol inhalers and Spiriva Titrate supplemental oxygen to maintain oxygen saturations above 88% Transferred ICU for closer monitoring 45 minutes spent in critical care activities
[2019-10-18 22:36] LABS: NT Pro B Type Natriuretic Pept 11700 PG/ML (5-100)
[2019-10-19] VITALS (20 sets, daily range): BP systolic 137–158; BP diastolic 57–71; PULSE 65–71; RESP 15–24; TEMP 36.8–37.3; O2SAT 92–100
--- NOTE | 2019-10-19 | ECHO_ITS ---
Patient Info Name: Abel Pike Age: 74 years : 1945 Gender: Male Ht: 70 in Wt: 220 lbs BSA: 2.25 m2 HR: 59 bpm BP: 153 / 71 mmHg Heart Rhythm: Sinus Rhythm Technical Quality: Good Exam Date: 10/19/2019 10:11 AM Exam Location: [facility] Pulmonary Patient Status: Inpatient Admit Date: 10/16/2019 Staff Ordering Physician: Matt Cantu MD Lap Cutter Truer Operator: Scott Wick RDCS, RT Attending Provider: Rebecca Marcelino DO Exam Type: CA echo doppler color flow Study Info Indications R06.02 - Shortness of breath Complete two-dimensional, color flow and Doppler transthoracic echocardiogram is performed. Summary 1. Normal left ventricular size with mild concentric left ventricular hypertrophy. Left ventricular function at the lower limit of normal, a estimated ejection fraction 50-55%. Grade 2 diastolic dysfunction is present. No focal wall motion abnormalities. 2. Left atrial chamber dimension is moderately enlarged. 3. No significant valvular heart disease. 4. Normal sinus rhythm with frequent PVCs. Left Ventricle Left ventricular chamber dimension is normal. Left ventricular systolic function is normal, estimated at 50-55%. There is mildly increased left ventricular wall thickness. Left ventricular septal wall motion is normal. The left ventricular diastolic function is grade II diastolic dysfunction. Normal left ventricular size with mild concentric left ventricular hypertrophy. Left ventricular function at the lower limit of normal, a estimated ejection fraction 50-55%. Grade 2 diastolic dysfunction is present. No focal wall motion abnormalities. Right Ventricle Right ventricular chamber dimension is normal. Right ventricular systolic function is normal. Left Atria Left atrial chamber dimension is moderately enlarged. Right Atria Right atrial chamber dimension is normal. Aortic Valve The aortic valve is trileaflet. There is no aortic valve sclerosis. There is no aortic valve stenosis. There is no aortic valve regurgitation. Pulmonic Valve The pulmonic valve is normal. There is no pulmonic valve stenosis. There is no pulmonic regurgitation. Mitral Valve The mitral valve has normal leaflets. There is no mitral valve stenosis. There is trace mitral valve regurgitation. Tricuspid Valve The tricuspid valve leaflets are normal. There is no significant tricuspid valve stenosis. There is trace tricuspid valve regurgitation. No pulmonary hypertension, estimated pulmonary arterial systolic pressure is Empty. Pericardium/Pleural The pericardium appears normal. There is no pericardial effusion. Inferior Vena Cava Normal inferior vena cava with >50% collapse upon inspiration consistent with Empty right atrial pressure, Empty. Aorta The aortic root size at the sinus of Valsalva is normal. The prox ascending aorta size is normal. Left Ventricular Outflow Tract Name Value Normal LVOT 2D LVOT Diameter 2.3 cm LVOT Doppler LVOT Peak Velocity 131 cm/s LVOT Peak Gradient 7 mmHg LVOT Mean Gradient 4 mmHg
--- NOTE | 2019-10-19 00:14 | PC.NURSE ---
This patient, Abel Pike, was received from [[id number] ] on 10/18/19 at 2250. Personal belongings list checked and signed. Patient/family oriented to unit policies and routines
[2019-10-19] MEDS: ALBUTEROL SULFATE (*SP) AEROSOL 1 PUFF 6 PUFF INHALATION ×4 (02:11→21:32)
[2019-10-19 07:07] LABS: Basophils Percent Auto 0.1 % (0.2-1.2); Eosinophils Absolute Auto 0.2 K/mm3 (0-0.3); Eosinophils Percent Auto 2.7 % (0-4.4); Hematocrit 23.4 % (42.0-52.0); Hemoglobin 7.6 g/dL (14.0-18.0); Immature Granulocyte Absolute 0.15 K/mm3 (0.00-0.031); Immature Granulocyte Percent A 1.8 % (0-0.5); Lymphocytes Absolute Auto 0.84 K/mm3 (0.9-3.2); Mean Corpuscular HGB Conc 32.5 g/dl (32-36); Mean Corpuscular Hemoglobin 29.6 pg (26-34); Mean Corpuscular Volume 91.1 fl (80-100); Mean Platelet Volume 9.2 fl (7.4-10.4); Monocytes Absolute Auto 0.7 K/mm3 (0.1-0.6); Monocytes Percent Auto 8.4 % (2.6-8.5); Neutrophils Absolute Auto 6.4 K/mm3 (1.3-6.7); Platelet Count Result 196 k/mm3 (150-375); Red Blood Count 2.57 M/mm3 (4.6-6.20); White Blood Count 8.4 K/mm3 (4.5-10.0)
[2019-10-19 07:28] LABS: Alanine Aminotransferase 22 U/L (4-50); Albumin Level 2.7 g/dL (3.5-5.1); Alkaline Phosphatase 75 U/L (38-126); Aspartate Amino Transferase 36 U/L (17-59); Bilirubin,Total 0.2 mg/dL (0.2-1.3); Blood Urea Nitrogen 34 mg/dL (9-20); Calcium 7.9 mg/dL (8.4-10.2); Carbon Dioxide 19 mmol/L (22-30); Chloride 119 mmol/L (98-107); Estimated CRCL calculation 30 ml/min; Estimated Glomerular Filt Rate 27; Glucose 116 mg/dL (75-110); Potassium 4.3 mmol/L (3.4-5.0); Sodium 144 mmol/L (137-145)
[2019-10-19] MEDS: FUROSEMIDE INJ 40 MG/4 ML VIAL IV PUSH (09:00)
[2019-10-19] MEDS: HEPARIN SODIUM 5,000 UNITS/ML VIAL 5000 UNITS SUB-Q ×3 (09:01→20:33)
[2019-10-19] MEDS: AMLODIPINE BESYLATE 5 MG TABLET 10 MG PO (09:01)
[2019-10-19] MEDS: ATORVASTATIN 20 MG TABLET PO (09:01)
[2019-10-19] MEDS: carvediloL 25 MG TABLET 50 MG PO ×2 (09:01→20:31)
--- NOTE | 2019-10-19 09:20 | WPDCNINT ---
Assessment and Plan Assessment and plan (1) Community acquired pneumonia: Code(s): J18.9 - Pneumonia, unspecified organism Status: Acute Assessment and Plan: Chest x-ray reviewed. He has bilateral infiltrate more on the right side compared to the left. Continue empiric antibiotics with ceftriaxone and azithromycin. Follow culture. Send sputum culture if he is able to produce any. (2) Pneumonia due to COVID-19 virus: Code(s): U07.1 - COVID-19; J12.89 - Other viral pneumonia Status: Acute Assessment and Plan: He has been diagnosed to have COVID-19 almost 10 days ago. Continue to monitor inflammatory markers. His CRP has been noticed to trend up. His ferritin is 832. LDH is 636. His oxygen requirement has decreased significantly since last night and is down to 2 L through nasal cannula. Later he was weaned down to room air now. I think fluid overload was 1 of the contributing factors. (3) Acute respiratory failure with hypoxemia: Code(s): J96.01 - Acute respiratory failure with hypoxia Status: Acute Assessment and Plan: His oxygen requirement is down to 2 L of oxygen through nasal cannula. Continue to wean him down if he is able to tolerate it. He is down to room air now. Chest x-ray with bilateral airspace disease more on the right side than the left. Continue to monitor his respiratory status closely. (4) Fluid overload: Code(s): E87.70 - Fluid overload, unspecified Status: Acute Assessment and Plan: He had a net positive fluid balance of 10 L since admission to the hospital. He received Lasix yesterday. He was given another dose of Lasix of 40 mg and he had a urine output of 1.7 L. Continue to monitor renal parameters and electrolyte. Strict intake output records. Will order an echocardiogram as well. (5) Acute on chronic renal failure: Code(s): N17.9 - Acute kidney failure, unspecified; N18.9 - Chronic kidney disease, unspecified Status: Acute Assessment and Plan: Continue to monitor renal parameters. Unclear baseline creatinine but he does seems to have chronic kidney disease. (6) Diabetes mellitus: Code(s): E11.9 - Type 2 diabetes mellitus without complications Status: Acute Assessment and Plan: Continue to hold oral hypoglycemic agents. Continue insulin sliding scale. (7) Hypertension: Code(s): I10 - Essential (primary) hypertension Status: Acute Assessment and Plan: Continue amlodipine and carvedilol. Continue to hold lisinopril for now. Continue to monitor hemodynamics closely. Additional Plan DVT prophylaxis subcu heparin GI prophylaxis not indicated Since he is down to room air now, he can be downgraded to telemetry floor. Critical care time spent for more than 35 minutes Due to a high probability of clinically significant, life threatening deterioration, the patient required my highest level of preparedness to intervene emergently and I personally spent this critical care time directly and personally managing the patient. This critical care time included obtaining a history; examining the patient; pulse oximetry; ordering and review of studies; arranging urgent treatment with development of a management plan; evaluation of patient's response to treatment; frequent reassessment; and discussions with other providers. It was exclusive of separately billable procedures and treating other patients and teaching time. Please see Assessment and Plan section and the rest of the note for further information on patient assessment and treatment. Monitoring Analyst Consult Note Consult date: 10/19/19 Time Seen: 10:11 HPI: Abel Pike is a 74 year old male with a past medical history of chronic kidney disease, hypertension, diabetes mellitus who came into the ED with complaints of nausea vomiting diarrhea fever cough and shortness of breath. He was diagnosed to have C
--- NOTE | 2019-10-19 10:45 | PCDIET ---
ICU Rounding Note: Patient consuming 50-100% of most meals on diabetic diet. RN reports intake of 70% of breakfast meal. Denies decreased appetite, but does not care for the food here. RN encouraging patient to try different options. Receiving Glucerna Shake BID. Last recorded weight is 100.2kg which is increased from last review. Patient now receiving diuretic. Bowel Motility: Diarrhea, per nursing notes. Labs Reviewed: Glu (116), BUN (34), Cr (2.4), Alb (2.7) Meds Noted: Albuterol, Zithromax, Rocephin, Novolog, s/p Lasix and NaHCO3 Additional Notes: Generalized scabs noted, but no pressure sores. Following daily in ICU rounds. Assessing/reassessing every 5 days.
--- NOTE | 2019-10-19 17:07 | PM.IMPN ---
Progress Note: A&P Assessment and Plan (1) Pneumonia due to COVID-19 virus: Code(s): U07.1 - COVID-19; J12.89 - Other viral pneumonia Status: Acute Assessment and Plan: Will continue antibiotic therapy with azithromycin iv for 3 days and rocephin iv BC are negative to date Sputum negative to date Pt is on RA Supportive care Hopeful discharge tomorrow (2) Acute on chronic renal failure: Code(s): N17.9 - Acute kidney failure, unspecified; N18.9 - Chronic kidney disease, unspecified Status: Acute Assessment and Plan: Likely due to dehydration and lisinopril and ibuprofen use Creat is 2.4 which is his baseline (3) Anemia, chronic disease: Code(s): D63.8 - Anemia in other chronic diseases classified elsewhere Status: Acute Assessment and Plan: HB is 7.6 may be dilutional effect continue to monitor or secondary to CKD (4) Fluid overload: Code(s): E87.70 - Fluid overload, unspecified Status: Acute Assessment and Plan: Over hydration with iv fluids pt responded well to iv lasix, stable for transfer back to medical floor. Pt would like to urinary catheter removed Pt is stable on RA, continue to watch saturation If pt does well overnight would like to be discharged home ifrah as has been discharged home today. Subjective Date/time seen: 10/19/19 17:07 Interval history: Patient with COVID-19 with diagnosed 10 days ago, stated on 10/14 the 1st time he was able to eat his meal, symptoms, still symptomatic with low grade fevers and SOB. Pt started on 2 liters today for respiratory distress. Cxr on admission showing pneumonia. Pt developed respiratory distress last night and was transfered to ICU. Pt at that time was on 10 liters. Pt is now on RA. Called pts room in ICU. Told him that the fluids, filled up his lungs and the lasix helped him , now he was going to be discharged back to the medical floor. Pt said he felt better today. No fevers, not so SOB but still has a small cough. Pt would like his urinary catheter taken out as it interferes with him getting up. Pt seen earlier by ICU attending. Stable to transfer back to medical floor. Review of Systems Review of Systems: All systems reviewed & are unremarkable except as noted in HPI and below Respiratory: Respiratory: Reports chest congestion and Reports cough Exam Narrative: Exam Narrative: Temp Pulse Resp BP Pulse Ox 37.3 C 70 24 H 127/62 92 10/18/19 14:00 10/18/19 14:00 10/18/19 14:00 10/18/19 14:00 10/18/19 17:16 Pt not fully examined Appears comfortable. Pt is on room air Pt has urinary catheter insitu Objective Data Vital Signs Vital Signs: Vital Signs - 24 hr 10/18/19 17:16 10/18/19 19:44 10/18/19 20:00 Temperature Pulse Rate 70 Respiratory Rate Blood Pressure Pulse Oximetry 92 77 L 10/18/19 21:00 10/18/19 21:30 10/18/19 21:37 Temperature 37.2 C Pulse Rate 67 69 Respiratory Rate 24 H 28 H 28 H Blood Pressure 136/84 Pulse Oximetry 94 88 L 94 10/18/19 23:04 10/19/19 00:00 10/19/19 00:33 Temperature 37.3 C 37.3 C Pulse Rate 70 69 Respiratory Rate 24 H 17 Blood Pressure 158/71 H Pulse Oximetry 99 97 10/19/19 00:37 10/19/19 02:00 10/19/19 02:12 Temperature 37.2 C Pulse Rate 66 69 Respiratory Rate 17 Blood Pressure Pulse Oximetry 10/19/19 02:13 10/19/19 04:00 10/19/19 06:00 Temperature 37.2 C Pulse Rate 68 65 67 Respiratory Rate 18 15 Blood Pressure 153/71 H Pulse Oximetry 98 100 10/19/19 08:00 10/19/19 08:15 10/19/19 10:00 Temperature 36.8 C Pulse Rate 69 65 Respiratory Rate 22 H 19 Blood Pressure 158/68 H 143/65 H Pulse Oximetry 95 96 95 10/19/19 12:00 10/19/19 13:30 10/19/19 14:00 Temperature 36.8 C Pulse Rate 65 69 69 Respi
[2019-10-19 19:15] LABS: Glucose Point of Care 130 (65-105)
[2019-10-19 19:15] LABS: Glucose Point of Care 151 (65-105)
[2019-10-19 20:48] LABS: Glucose Point of Care 192 (65-105)
[2019-10-20] VITALS (12 sets, daily range): BP systolic 120–155; BP diastolic 52–74; PULSE 62–68; RESP 14–26; TEMP 36.6–37.3; O2SAT 90–98
[2019-10-20] MEDS: ALBUTEROL SULFATE (*SP) AEROSOL 1 PUFF 6 PUFF INHALATION ×4 (02:57→20:45)
[2019-10-20] MEDS: HEPARIN SODIUM 5,000 UNITS/ML VIAL 5000 UNITS SUB-Q ×3 (04:48→22:15)
[2019-10-20 05:08] LABS: Basophils Percent Auto 0.1 % (0.2-1.2); Eosinophils Absolute Auto 0.3 K/mm3 (0-0.3); Eosinophils Percent Auto 3.8 % (0-4.4); Hematocrit 23.3 % (42.0-52.0); Hemoglobin 7.6 g/dL (14.0-18.0); Immature Granulocyte Absolute 0.17 K/mm3 (0.00-0.031); Immature Granulocyte Percent A 2.2 % (0-0.5); Lymphocytes Absolute Auto 0.95 K/mm3 (0.9-3.2); Lymphocytes Percent Auto 12.1 % (18.3-44.2); Mean Corpuscular HGB Conc 32.6 g/dl (32-36); Mean Corpuscular Hemoglobin 29.2 pg (26-34); Mean Corpuscular Volume 89.6 fl (80-100); Mean Platelet Volume 9.3 fl (7.4-10.4); Monocytes Absolute Auto 0.7 K/mm3 (0.1-0.6); Monocytes Percent Auto 8.4 % (2.6-8.5); Neutrophils Absolute Auto 5.8 K/mm3 (1.3-6.7); Neutrophils Percent Auto 73.4 % (45.5-73.1); Platelet Count Result 205 k/mm3 (150-375); White Blood Count 7.9 K/mm3 (4.5-10.0)
[2019-10-20 05:35] LABS: D Dimer 3.57 ug/mL (<0.48)
[2019-10-20 05:36] LABS: Alanine Aminotransferase 27 U/L (4-50); Albumin Level 2.8 g/dL (3.5-5.1); Alkaline Phosphatase 75 U/L (38-126); Aspartate Amino Transferase 37 U/L (17-59); Bilirubin,Total < 0.1 mg/dL (0.2-1.3); Blood Urea Nitrogen 34 mg/dL (9-20); CRP 16.3 mg/dL (<1.0); Calcium 8.1 mg/dL (8.4-10.2); Carbon Dioxide 22 mmol/L (22-30); Chloride 115 mmol/L (98-107); Estimated CRCL calculation 30 ml/min; Estimated Glomerular Filt Rate 27; Glucose 117 mg/dL (75-110); Potassium 4.2 mmol/L (3.4-5.0); Sodium 143 mmol/L (137-145)
[2019-10-20] MEDS: AMLODIPINE BESYLATE 5 MG TABLET 10 MG PO (08:32)
[2019-10-20] MEDS: carvediloL 25 MG TABLET 50 MG PO ×2 (08:32→22:14)
[2019-10-20] MEDS: ATORVASTATIN 20 MG TABLET PO (08:32)
[2019-10-20 11:10] LABS: Glucose Point of Care 159 (65-105)
--- NOTE | 2019-10-20 11:12 | PC.NURSE ---
at 045, pt up in room ambulating with cane, no assist of others, no shortness of breath, no complaints voiced
--- NOTE | 2019-10-20 11:37 | PCDIET ---
Nutrition Follow-Up Complete: Nutrition Diagnosis: Inadequate oral intake related to reduced appetite as evidence by mild weight loss. Nutrition Goal: Intake of 75% of meals and supplements to meet daily nutrition needs Goal met. Patient eating ~75% of meals on diabetic diet with Glucerna BID. Last recorded weight is 97.1 kg which is decreased. -I/O. Bowel Motility: +Diarrhea. Labs Reviewed: Glu (117), BUN (34), Alb (2.8), [place] Ca (9.72) Meds Noted: Albuterol, Zithromax, Rocephin, Novolog Additional Notes: No documented pressure sores. Will continue to monitor with same goals. Nutrition Monitoring and Evaluation: Follow up every 5 days.
--- NOTE | 2019-10-20 12:25 | PC.NURSE ---
Talked to Dr. Andino via phone and asked her of Abel was going to go home today, Doctor stated that she called and talked to him via phone and was going to keep him one more day for lasix treatment, no lasix ordered at this time, the Dr. Andino called backed and stated she talked to pt via phone and he was going to go home, Doctor called back again and stated he will stay one more not and she will order lasix, asked Dr. Andino each phone conversation if she was going to physically see her patient today and never received a direct answer
[2019-10-20] MEDS: FUROSEMIDE INJ 40 MG/4 ML VIAL 20 MG IV PUSH (13:45)
--- NOTE | 2019-10-20 16:07 | PC.NURSE ---
This patient, Abel Pike, was transferred to [facility] on 10/20/19 at 1600. Personal belongings sent with patient. Report given to RN. Appropriate documentation sent with patient.
--- NOTE | 2019-10-20 17:17 | PM.IMPN ---
Progress Note: A&P Assessment and Plan (1) Pneumonia due to COVID-19 virus: Code(s): U07.1 - COVID-19; J12.89 - Other viral pneumonia Status: Acute Assessment and Plan: Will continue antibiotic therapy with azithromycin iv and rocephin iv BC are negative to date Sputum negative to date Pt is on RA Supportive care Discharge tomorrow (2) Acute on chronic renal failure: Code(s): N17.9 - Acute kidney failure, unspecified; N18.9 - Chronic kidney disease, unspecified Status: Acute Assessment and Plan: Likely due to dehydration and lisinopril and ibuprofen use superimposed on CKD Creat is 2.4 which is his baseline (3) Anemia, chronic disease: Code(s): D63.8 - Anemia in other chronic diseases classified elsewhere Status: Acute Assessment and Plan: HB is 7.6 may be dilutional effect continue to monitor or secondary to CKD (4) Fluid overload: Code(s): E87.70 - Fluid overload, unspecified Status: Acute Assessment and Plan: Over hydration with iv fluids pt responded well to iv lasix, stable for transfer back to medical floor. If pt does well overnight would like to be discharged home ifrah as has been discharged home already. Pt wants to leave tomorrow. Continue iv lasix today. then transition to oral lasix for 5 days on discharge. Subjective Date/time seen: 10/20/19 17:17 Interval history: Patient with COVID-19 with diagnosed 10 days ago, stated on 10/14 the 1st time he was able to eat his meal, symptoms, still symptomatic with low grade fevers and SOB. Pt started on 2 liters today for respiratory distress. Cxr on admission showing pneumonia. Pt developed respiratory distress and was transfered to ICU. Pt at that time was on 10 liters. Pt is now on RA. Told the pt that the fluid, filled up his lungs and the lasix helped him, now he was going to be discharged back to the medical floor. Long discussion with pt over the phone in icu today as pt has not move yet to the floor. Pts cxr still shows pulmonary edema. pt will need to continue on iv lasix for one more day before dischrage. Pt is very keen to go home as his was discharged yesterday, wanted to to be discharged today I told him it will be early tomorrow. Pt feels much better no fever or sob mild cough only. Not on any oxygen. discussion about anemia pt states he has been anaemic for long time and kidney doctor is following him for that. Pt seen in the room, talking to his about coming home, no complaints feels much better, more energy not SOB, still has a mild cough, otherwise enjoying his dinner. very pleasant. Review of Systems Review of Systems: All systems reviewed & are unremarkable except as noted in HPI and below Cardiovascular: Cardiovascular: Denies chest pain Respiratory: Respiratory: Denies chest congestion, Reports cough and Denies dyspnea Exam Narrative: Exam Narrative: Temp Pulse Resp BP Pulse Ox 37.1 C 63 18 120/70 97 10/20/19 16:00 10/20/19 16:00 10/20/19 16:00 10/20/19 16:00 10/20/19 16:00 Comfortable pleasant Sitting up On RA Vitals stable No acute respiratory distress Eating dinner Objective Data Vital Signs Vital Signs: Vital Signs - 24 hr 10/19/19 18:00 10/19/19 20:00 10/19/19 20:31 Temperature 36.8 C 36.8 C Pulse Rate 65 71 69 Respiratory Rate 20 21 H Blood Pressure 156/63 H 150/68 H Pulse Oximetry 94 93 10/19/19 21:35 10/19/19 22:00 10/20/19 00:00 Temperature 37.3 C Pulse Rate 70 68 62 Respiratory Rate 24 H 24 H 26 H Blood Pressure 137/61 151/68 H Pulse Oximetry 93 92 94 10/20/19 02:00 10/20/19 04:00 10/20/19 06:00 Temperature Pulse Rate 67 64 63 Respiratory Rate 14 16 20 Blood Pressure 145/63 H 155/63 H 147/66 H Pulse Oximetry 90 91 92 10/20/19 08:00 06/0
[2019-10-20 18:18] LABS: Glucose Point of Care 140 (65-105)
[2019-10-20 20:55] LABS: Pneumococcal Antigen Urine Not Detected (Not Detected)
[2019-10-21 02:38] VITALS: BP 130/74; PULSE 63; RESP 20; TEMP 36.9; O2SAT 95
[2019-10-21] MEDS: ALBUTEROL SULFATE (*SP) AEROSOL 1 PUFF 6 PUFF INHALATION ×2 (02:47→08:49)
[2019-10-21 03:39] LABS: Glucose Point of Care 142 (65-105)
[2019-10-21 06:00] VITALS: BP 145/77; PULSE 60; RESP 20; TEMP 36.8; O2SAT 94
[2019-10-21] MEDS: HEPARIN SODIUM 5,000 UNITS/ML VIAL 5000 UNITS SUB-Q (06:21)
[2019-10-21 08:03] LABS: Basophils Percent Auto 0.4 % (0.2-1.2); Eosinophils Absolute Auto 0.3 K/mm3 (0-0.3); Eosinophils Percent Auto 4.6 % (0-4.4); Hematocrit 22.5 % (42.0-52.0); Hemoglobin 7.2 g/dL (14.0-18.0); Immature Granulocyte Absolute 0.15 K/mm3 (0.00-0.031); Lymphocytes Absolute Auto 0.85 K/mm3 (0.9-3.2); Lymphocytes Percent Auto 11.4 % (18.3-44.2); Mean Corpuscular Hemoglobin 29.3 pg (26-34); Mean Corpuscular Volume 91.5 fl (80-100); Mean Platelet Volume 9.6 fl (7.4-10.4); Monocytes Absolute Auto 0.6 K/mm3 (0.1-0.6); Monocytes Percent Auto 8.1 % (2.6-8.5); Neutrophils Absolute Auto 5.5 K/mm3 (1.3-6.7); Neutrophils Percent Auto 73.5 % (45.5-73.1); Platelet Count Result 228 k/mm3 (150-375); Red Blood Count 2.46 M/mm3 (4.6-6.20); Red Cell Distribution Width 12.9 % (11.5-14.5); White Blood Count 7.5 K/mm3 (4.5-10.0)
[2019-10-21 08:06] LABS: Alanine Aminotransferase 43 U/L (4-50); Albumin Level 2.8 g/dL (3.5-5.1); Alkaline Phosphatase 81 U/L (38-126); Aspartate Amino Transferase 49 U/L (17-59); Bilirubin,Total 0.1 mg/dL (0.2-1.3); Blood Urea Nitrogen 36 mg/dL (9-20); CRP 7.1 mg/dL (<1.0); Calcium 8.2 mg/dL (8.4-10.2); Carbon Dioxide 21 mmol/L (22-30); Chloride 112 mmol/L (98-107); Estimated CRCL calculation 28 ml/min; Estimated Glomerular Filt Rate 24; Glucose 142 mg/dL (75-110); Potassium 4.3 mmol/L (3.4-5.0); Sodium 141 mmol/L (137-145)
--- NOTE | 2019-10-21 08:36 | PM.DS ---
DS: Admitting Diagnosis Admitting Diagnosis Admitting Diagnosis: COVID-19 DS: Discharge Diagnosis Discharge Diagnosis (1) Pneumonia due to COVID-19 virus: Code(s): U07.1 - COVID-19; J12.89 - Other viral pneumonia Status: Acute Assessment and Plan: Cxr reviwed from day of discharge mild pulmonary edema, and pneumonia still present, not ARDS discussed CXR with icu attending who agrees not ARDS. Discharge today on oral zpac Adviced to self quarantine for 14 days If pt is still coughing or sob after completing his zpac, can call PCP for more another zpac Pt received IV zithromax for 6 days and iv rocephin for 3 days, oxygen and albuterol inhalation while in the hospital. (2) Acute on chronic renal failure: Code(s): N17.9 - Acute kidney failure, unspecified; N18.9 - Chronic kidney disease, unspecified Status: Acute Assessment and Plan: Likely due to dehydration and lisinopril and ibuprofen use superimposed on CKD Creat is 2.4 which is his baseline (3) Anemia, chronic disease: Code(s): D63.8 - Anemia in other chronic diseases classified elsewhere Status: Acute Assessment and Plan: HB is 7.6 may be secondary to CKD (4) Fluid overload: Code(s): E87.70 - Fluid overload, unspecified Status: Acute Assessment and Plan: Over hydration with iv fluids was kept in icu overnight. Pt responded well to iv lasix. Pt is on RA now, was given in iv lasix in the hospital, much better, can transition to oral lasix for 5 days on discharge. DS: Summary Time Spent with Patient Time attestation: Total time spent providing and/or coordinating discharge services:40 minutes on day of discharge Exam Narrative: Exam Narrative: Temp Pulse Resp BP Pulse Ox 36.8 C 60 20 145/77 H 94 10/21/19 06:00 10/21/19 06:00 10/21/19 06:00 10/21/19 06:00 10/21/19 06:00 Comfortable No respiratory distress DS: Data Data Completed and Pending Labs on day of discharge: Labs from last 24 hours 10/21/19 10/21/19 10/21/19 07:35 07:35 07:35 WBC RBC Hgb Hct MCV MCH MCHC RDW Plt Count MPV Immature Gran % (Auto) Neut % (Auto) Lymph % (Auto) [place] % (Auto) Eos % (Auto) Baso % (Auto) Lymph # (Auto) [place] # (Auto) Eos # (Auto) Baso # (Auto) Abs Immat Gran (auto) Absolute Neuts (auto) Absolute Nucleated RBC Nucleated RBC % D-Dimer Pending Sodium 141 Potassium 4.3 Chloride 112 H Carbon Dioxide 21 L BUN 36 H Creatinine 2.60 H Estim Creat Clear Calc 28 Estimated GFR 24 L Glucose 142 H POC Capillary Glucose Calcium 8.2 L Ferritin Pending Total Bilirubin 0.1 L AST 49 ALT 43 Alkaline Phosphatase 81 C-Reactive Protein 7.1 H Total Protein 6.0 L Albumin 2.8 L Urine Pneumococcal Ag 10/21/19 10/20/19 10/20/19 07:35 22:23 18:13 WBC 7.5 RBC 2.46 L Hgb 7.2 L Hct 22.5 L MCV 91.5 MCH 29.3 MCHC 32.0 RDW 12.9 Plt Count 228 MPV 9.6 Immature Gran % (Auto) 2.0 H Neut % (Auto) 73.5 H Lymph % (Auto) 11.4 L [place] % (Auto) 8.1 Eos % (Auto) 4.6 H Baso % (Auto) 0.4 Lymph # (Auto) 0.85 L [place] # (Auto) 0.6 Eos # (Auto) 0.3 Baso # (Auto) 0.0 Abs Immat Gran (auto) 0.15 H Absolute Neuts (auto) 5.5 Absolute Nucleated RBC 0.0 Nucleated RBC % 0.0 D-Dimer Sodium Potassium Chloride Carbon Dioxide BUN Creatinine Estim Creat Clear Calc Estimated GFR Glucose POC Capillary Glucose 142 H 140 H Calcium Ferritin Total Bilirubin AST ALT Alkaline Phosphatase C-Reactive Protein Total Protein Albumin Urine Pneumococcal Ag 10/20/19 10/19/19 11:04 10:47 WBC
[2019-10-21 08:48] LABS: Glucose Point of Care 132 (65-105)
[2019-10-21] MEDS: AMLODIPINE BESYLATE 5 MG TABLET 10 MG PO (09:30)
[2019-10-21] MEDS: ATORVASTATIN 20 MG TABLET PO (09:30)
[2019-10-21 09:31] VITALS: PULSE 60
[2019-10-21] MEDS: carvediloL 25 MG TABLET 50 MG PO (09:31)
[2019-10-21] MEDS: FUROSEMIDE INJ 40 MG/4 ML VIAL 20 MG IV PUSH (09:32)
[2019-10-21 09:57] LABS: D Dimer 3.27 ug/mL (<0.48)
[2019-10-21 10:00] VITALS: BP 134/71; PULSE 67; RESP 20; TEMP 36.7; O2SAT 94
[2019-10-21 10:11] VITALS: O2SAT 95
[2019-10-21 17:18] LABS: Legionella pneumophila Ag Ur Not Detected (Not Detected)
== END 2019-10-21 10:10 | disposition home or self-care (01) | DRG 177 ==
LOC: ANHED 22:50 → ANHICU 23:19 → ANH3MEDSUR 10-15 10:33 → ANHICU 10-24 15:16
PROVIDERS: Family Medicine; Internal Medicine Critical Care Medicine; Admitting Provider Internal Medicine; Emergency Provider Emergency Medicine; PCP Family Medicine Adolescent Medicine; Visit Provider Family Medicine
DX: U07.1 COVID-19 (principal); J12.89 Other viral pneumonia; J96.01 Acute respiratory failure with hypoxia; N17.9 Acute kidney failure, unspecified; I12.9 Hypertensive chronic kidney disease with stage 1 through stage 4 chronic kidney disease, or unspecified chronic kidney disease; N18.9 Chronic kidney disease, unspecified; E87.70 Fluid overload, unspecified; E86.0 Dehydration; D63.1 Anemia in chronic kidney disease; E11.22 Type 2 diabetes mellitus with diabetic chronic kidney disease; E78.5 Hyperlipidemia, unspecified; L30.9 Dermatitis, unspecified; Z85.46 Personal history of malignant neoplasm of prostate; Z98.42 Cataract extraction status, left eye; Z98.41 Cataract extraction status, right eye
CPT/HCPCS: 36415; 36600; 71045; 80048; 80053; 81001; 82375; 82728; 82805; 83050; 83605; 83615; 83690; 83735; 83880; 85025; 85380; 85610; 85730; 86140; 87040; 87070; 87205; 87449; 87899; 93005; 93306; 94640; 96361; 96365; 96366; 96367; 96372; 99285; A9270; G0378; J0456; J0696; J1644; J1940; J7030

== ENCOUNTER 2021-07-13 11:16 | Inpatient (IN) | payer OTHER, MEDICAID, SELFPAY ==
[2021-07-13] VITALS (9 sets, daily range): BP systolic 106–120; BP diastolic 55–78; PULSE 56–95; RESP 14–24; TEMP 36.1–36.5; O2SAT 96–100; BMI 25.7
--- NOTE | ~2021-07-13 | US_ITS ---
EXAMINATION: US renal BI EXAM DATE: 07/14/2021 12:26 INDICATION: Acute kidney insufficiency. TECHNIQUE: Multiple grayscale and Doppler images of the kidneys were obtained (by a technologist who performed the scan) and subsequently reviewed. There is no prior study for comparison. FINDINGS: Right kidney: There is normal contour and echogenicity. It measures 11.0 x 5.6 x 5.9 centimeters. T here are no focal renal lesions identified. There is no hydronephrosis. Left kidney: There is normal contour and echogenicity. It measures 11.3 x 6.1 x 4.8 centimeters. Th ere are no focal renal lesions identified. There is no hydronephrosis. Bladder unremarkable. IMPRESSION: 1. Sonographically unremarkable kidneys. Reviewed, dictated and finalized at location A. ER HAND
--- NOTE | ~2021-07-13 | XR_ITS ---
EXAMINATION: XR chest 2V EXAM DATE: 07/13/2021 12:19 INDICATION: Cough, weakness TECHNIQUE: Frontal and lateral projections of the chest obtained and reviewed. There is no prior kaveh dy for comparison. FINDINGS: There is cardiomegaly. Resolution of previously seen diffuse airspace disease. No confluen t consolidation, pneumothorax or pleural effusion suspected. There are mild bony degenerative changes . IMPRESSION: Cardiomegaly. Reviewed, dictated and finalized at location A. MAINTENANCE TECHNICIAN IMPRESSION: Cardiomegaly.
--- NOTE | 2021-07-13 11:26 | ECG_ITS ---
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
[2021-07-13 11:46] LABS: Basophils Percent Auto 0.2 % (0.2-1.2); Eosinophils Absolute Auto 0.1 K/mm3 (0-0.3); Eosinophils Percent Auto 0.9 % (0-4.4); Hematocrit 27.1 % (42.0-52.0); Hemoglobin 8.9 g/dL (14.0-18.0); Immature Granulocyte Absolute 0.06 K/mm3 (0.00-0.031); Immature Granulocyte Percent A 0.9 % (0-0.5); Lymphocytes Absolute Auto 0.26 K/mm3 (0.9-3.2); Lymphocytes Percent Auto 4.1 % (18.3-44.2); Mean Corpuscular HGB Conc 32.8 g/dl (32-36); Mean Corpuscular Volume 97.5 fl (80-100); Mean Platelet Volume 9.7 fl (7.4-10.4); Monocytes Absolute Auto 0.6 K/mm3 (0.1-0.6); Monocytes Percent Auto 9.2 % (2.6-8.5); Neutrophils Absolute Auto 5.4 K/mm3 (1.3-6.7); Neutrophils Percent Auto 84.7 % (45.5-73.1); Nucleated Red Blood Cells Perc 0.3 % (0.0-0.2); Platelet Count Result 111 k/mm3 (150-375); Red Blood Count 2.78 M/mm3 (4.6-6.20); White Blood Count 6.3 K/mm3 (4.5-10.0)
[2021-07-13 11:49] LABS: Glucose Point of Care 67 mg/dl (65-105)
[2021-07-13 12:01] LABS: Lactic Acid Reflex 1.2 mmol/L (0.7-2.1)
[2021-07-13 12:05] LABS: Add Urine Microscopic? YES; Appearance Urine Clear (Clear); Bacteria Urine Trace /hpf; Bilirubin Urine Negative (Negative); Blood Urine Negative (Negative); Color Urine Yellow (Yellow); Glucose Urine UA Negative (Negative); Ketones Urine Negative (Negative); Leukocyte Esterase Ur Negative LEU/UL (Negative); Mucus Urine Rare /lpf; Nitrate Urine Negative (Negative); Protein Urine 2+ mg/dL (Negative); RBC Urine 0-2 /hpf (0-2); Specific Grav Ur 1.013 (1.001-1.035); Urobilinogen Urine Negative mg/dL (<2.0); WBC Urine 0-3 /hpf
--- NOTE | 2021-07-13 12:11 | ED.WEAKNESS ---
HPI - Weakness General Chief complaint: Weakness Stated complaint: weak Time Seen by Provider: 07/13/21 11:25 Source: patient History of Present Illness HPI Narrative: Patient presents with weakness. Reports been feeling weak for the past couple months however this morning it was more severe he checked his blood sugar and it was 50 so he came to the ER for evaluation. Denies recent fevers, cough, congestion denies any recent changes in appetite denies any diarrhea or urinary symptoms. Denies any chest pain or shortness of breath. Related Data Home Medications Medication Instructions Recorded Confirmed Januvia 100 mg PO DAILY 10/14/19 10/14/19 Veltassa 8.4 g PO DAILY 10/14/19 10/14/19 amlodipine 10 mg PO DAILY 10/14/19 10/14/19 atorvastatin 20 mg PO DAILY 10/14/19 10/14/19 carvedilol 25 mg PO BID 10/14/19 10/14/19 lisinopril 10 mg PO DAILY 10/14/19 10/14/19 Allergies Allergy/AdvReac Type Severity Reaction Status Date / Time Sulfa (Sulfonamide Allergy Unknown Verified 07/01/21 12:48 Antibiotics) Review of Systems Review of Systems: CONSTITUTIONAL: Denies fever, chills, or sweats. EYES: Denies visual changes, redness, or discharge. ENT: Denies rhinorrhea, congestion, sore throat, or otalgia. CARDIOVASCULAR: Denies chest pain, palpitations, or edema. RESPIRATORY: Denies cough or dyspnea. GASTROINTESTINAL: Denies abdominal pain, nausea, vomiting, or diarrhea. GENITOURINARY: Denies dysuria or hematuria. SKIN: Denies rash or itching. MUSCULOSKELETAL: Denies back pain, joint pain, or myalgia. NEUROLOGIC: Denies headache, numbness, dizziness, or focal weakness. PSYCHIATRIC: Denies anxiety or depression. 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 Srikanth Danielson Code status: Full code Smoking status: Never smoker Alcohol intake: never Alcohol use details: The patient only rarely drink and only in moderation but quit drinking in 1975 when he found Jovani. Substance use: never Additional living arrangements comments: He lives in [place] with his of 43 years. He has total of 6 children 5 of which are still living and her relatively healthy. He had 1 daughter who of morbid obesity and chronic lung disease. He is independent in activities of daily living. 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 Gender identity (if verbalized by the patient): Male Sexual Orientation (if Verbalized by the Patient): Straight or Heterosexual Spiritual care concerns: No Agree to blood products: Yes Exam Narrative: GENERAL: Well-appearing, well-nourished, and in no acute distress. HEAD: Normocephalic, atraumatic. EYES: PERRLA and EOMI. ENT: Nares clear, no rhinorrhea or epistaxis. Mucous membranes moist. NECK: Supple. No masses. No JVD CHEST: Clear to auscultation. No respiratory distress. No wheezes rales or rhonchi HEART: Regular rate and rhythm. No murmur heard. Normal peripheral pulses. ABDOMEN: Soft, nontender, nondistended, normal acti
[2021-07-13 12:19] LABS: Alanine Aminotransferase 16 U/L (4-50); Albumin Level 3.2 g/dL (3.5-5.1); Alkaline Phosphatase 64 U/L (38-126); Anion Gap 11 mmol/L (8-16); Aspartate Amino Transferase 18 U/L (17-59); Bilirubin,Total 0.4 mg/dL (0.2-1.3); Calcium 8.5 mg/dL (8.4-10.2); Carbon Dioxide 19 mmol/L (22-30); Chloride 109 mmol/L (98-107); Estimated CRCL calculation 12 ml/min; Estimated Glomerular Filt Rate 11; Glucose 66 mg/dL (65-110); Magnesium 2.6 mg/dL (1.6-2.3); Potassium 5.4 mmol/L (3.4-5.0); Sodium 139 mmol/L (137-145)
[2021-07-13 12:27] LABS: Glucose Point of Care 97 mg/dl (65-105)
[2021-07-13 12:56] LABS: Blood Urea Nitrogen 126 mg/dL (9-20)
[2021-07-13] MEDS: SODIUM CHLORIDE 0.9% IV 1,000 ML 999 ML IV CONT (15:53)
[2021-07-13 16:35] LABS: Glucose Point of Care 157 mg/dl (65-105)
--- NOTE | 2021-07-13 17:20 | PM.IMHP ---
H&P: HPI History of Present Illness Date/Time: Patient requires inpatient monitoring with expected length of stay to exceed 2 midnights for management of care. 07/13/21 17:20 Chief Complaint: Weakness Narrative: Mr. Pike is a 75-year-old gentleman who presented to the emergency with complaints of increasing weakness. Patient states that he has had increasing weakness over the last few days to weeks but today he could no longer move and he had to call EMS. Patient states he feels like he has been eating and drinking okay. Patient denies any chest pain, shortness breast, lightheadedness, dizziness, syncopal, or near syncopal episodes. Patient states he had been taking all medications without any difficulty. Patient states when he last saw his primary care doctor his blood sugars have been running quite elevated, and he had medications adjusted. Upon evaluation in the emergency room patient was noted to be hypoglycemic with a blood glucose in the 50s. On chemistry panel his blood glucose level was 66. Patient denies any dysuria, hematuria frequency, or urgency. Patient has a known history of chronic kidney disease and per his primary care notes which typically is it is stage IV. Patient also recently was placed on steroids for polymyalgia rheumatica and this was the cause of his increase in blood glucose levels. Patient did see his primary care provider on a 06/29/2021, but unfortunately there is no mention of a baseline BUN and creatinine. Patient follows with Dr. Dubois for Nephrology. Patient also has a known history of anemia of chronic disease, congenital deformity of fingers on left hand, eczema, history of prostate cancer, dyslipidemia, and COVID-19 in September of 2019. Review of Systems Review of Systems: A 12 point review of systems was completed patient all pertinent positive and negative per HPI the remainder are unremarkable. 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 Srikanth Danielson Code status: Full code Smoking status: Never smoker Alcohol intake: never Alcohol use details: The patient only rarely drink and only in moderation but quit drinking in 1975 when he found Jovani. Substance use: never Additional living arrangements comments: He lives in [place] with his of 43 years. He has total of 6 children 5 of which are still living and her relatively healthy. He had 1 daughter who of morbid obesity and chronic lung disease. He is independent in activities of daily living. 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 Gender identity (if verbalized by the patient): Male Sexual Orientation (if Verbalized by the Patient): Straight or Heterosexual Spiritual care concerns: No Agree to blood products: Yes Meds Home Medications and Allergies Home Medications Medication Instructions Recorded Confirmed Type Januvia 100 mg PO DAILY 10/14/19 10/14/19 History Veltassa 8.4 g PO DAILY 10/14/19 10/14/19 History amlodipine 10 mg PO DAILY 10/14/19 10/14/19 History atorvastatin 20 mg PO DAILY 10/14/19 10/14/19 History car
[2021-07-13] MEDS: SODIUM CHLORIDE 0.9% IV 1,000 ML 125 ML IV CONT (17:35)
--- NOTE | 2021-07-13 18:06 | ADMGEN ---
This patient, Abel Pike, was admitted to Medical Room 346-01. Patient/family oriented to hospital policies and general routines including ID bracelet, bed and alarms, visiting hours, pain management, procedures, bathroom and other care routines, personal items, smoking policy, room service/diet, and visiting hours. Information on how to activate the Rapid Response Team has been discussed. Patient/Family are encouraged to report perceived risks to care and to ask questions if they do not understand what they are told or what they should do.
[2021-07-13] MEDS: HEPARIN SODIUM 5,000 UNITS/ML VIAL 5000 UNITS SUB-Q (20:29)
[2021-07-13 20:33] LABS: Glucose Point of Care 382 mg/dl (65-105)
[2021-07-13] MEDS: INSULIN GLARGINE (*BKC) 100 UNITS/ML 25 UNITS SUB-Q (22:27)
[2021-07-14] VITALS (12 sets, daily range): BP systolic 99–146; BP diastolic 52–84; PULSE 61–101; RESP 14–20; TEMP 36.2–37; O2SAT 98–100
[2021-07-14] MEDS: SODIUM CHLORIDE 0.9% IV 1,000 ML 125 ML IV CONT ×2 (02:53→09:01)
[2021-07-14 03:08] LABS: SARS-CoV-2 RNA PCR Positive
[2021-07-14 08:34] LABS: Glucose Point of Care 130 mg/dl (65-105)
[2021-07-14 08:58] LABS: Hematocrit 24.5 % (42.0-52.0); Mean Corpuscular HGB Conc 32.7 g/dl (32-36); Mean Corpuscular Hemoglobin 32.7 pg (26-34); Mean Platelet Volume 9.6 fl (7.4-10.4); Platelet Count Result 109 k/mm3 (150-375); Red Blood Count 2.45 M/mm3 (4.6-6.20); Red Cell Distribution Width 14.4 % (11.5-14.5); White Blood Count 5.3 K/mm3 (4.5-10.0)
[2021-07-14] MEDS: VITAMIN B CMPLX/VIT C/FOLIC AC 1 CAPSULE 1 CAP PO (09:02)
[2021-07-14] MEDS: predniSONE 20 MG TABLET PO (09:02)
[2021-07-14] MEDS: MIRABEGRON 25 MG ER TABLET PO (09:02)
[2021-07-14] MEDS: carvediloL 25 MG TABLET PO ×2 (09:02→17:46)
[2021-07-14] MEDS: amLODIPine BESYLATE 5 MG TABLET 10 MG PO (09:02)
[2021-07-14] MEDS: FUROSEMIDE 20 MG TABLET 60 MG PO (09:02)
[2021-07-14] MEDS: cloNIDine HCL 0.1 MG TABLET PO ×2 (09:02→17:46)
[2021-07-14] MEDS: HEPARIN SODIUM 5,000 UNITS/ML VIAL 5000 UNITS SUB-Q ×2 (09:03→21:21)
[2021-07-14 09:08] LABS: Anion Gap 7 mmol/L (8-16); Blood Urea Nitrogen 116 mg/dL (9-20); Calcium 7.9 mg/dL (8.4-10.2); Carbon Dioxide 18 mmol/L (22-30); Chloride 113 mmol/L (98-107); Estimated CRCL calculation 14 ml/min; Estimated Glomerular Filt Rate 13; Glucose 148 mg/dL (65-110); Potassium 5.4 mmol/L (3.4-5.0); Sodium 138 mmol/L (137-145)
--- NOTE | 2021-07-14 10:31 | P.PNIM_ITS ---
Progress Note: A&P Assessment and Plan (1) Weakness: Code(s): R53.1 - Weakness Status: Acute Assessment and Plan: Complained of increased weakness, especially in his lower extremities, worsened over the past 4 days * Patient started on steroids for polymyalgia rheumatica in March 2021. Office visit 2 weeks ago indicated gradual improvement in strength * Patient now feels weaker. Etiology for this is unclear, may be secondary to acute infection with COVID-19 or acute kidney injury * Continue with steroids * Will check TSH, B12, folate * Appreciate PT/OT evals (2) Acute on chronic renal insufficiency: Code(s): N28.9 - Disorder of kidney and ureter, unspecified; N18.9 - Chronic kidney disease, unspecified Status: Acute Assessment and Plan: Patient reports a history of stage 4 chronic kidney disease and he is established with Nephrology (Dr. Dubois) * Baseline creatinine appears to be around 2.5 * Creatinine on presentation was 5.1, improved to 4.4 today * Continue with IV fluid rehydration. Cautious hydration in light of COVID-19 * Appreciate nephrology consultation * Etiology for this is unclear. May be prerenal given improvement with IV fluids. No evidence of obstruction. Could be due to infection. * Will obtain renal US (3) COVID-19: Code(s): U07.1 - COVID-19 Status: Acute Assessment and Plan: COVID-19 PCR positive on 07/13/2021 * Chest x-ray with no findings of pneumonia * Patient has no oxygen requirements * Supportive care * He has been vaccinated for COVID-19 but did not get his booster since starting prednisone * He did have COVID-19 in September 2019 requiring hospitalization and supplemental O2 * Monitor inflammatory markers intermittently * Continue isolation precautions (4) Polymyalgia rheumatica: Code(s): M35.3 - Polymyalgia rheumatica Status: Acute Assessment and Plan: Onset March 2021 * Being managed with prednisone taper by his PCP * Continue prednisone 20 mg daily (5) Type 2 diabetes mellitus with hyperglycemia: Code(s): E11.65 - Type 2 diabetes mellitus with hyperglycemia Status: Acute Assessment and Plan: Patient states his blood sugars have been running higher since starting prednisone * Blood sugar on arrival was in the 50s * Blood sugars now stable in the 150s * Continue with Accu-Cheks, sliding scale insulin, hypoglycemic protocol * Home glimepiride on hold * Lantus 25 units q.h.s. * Continue to monitor glucose trends (6) Hyperkalemia: Code(s): E87.5 - Hyperkalemia Status: Acute Assessment and Plan: Potassium 5.4. * Secondary to MICHELLE * Administer one time dose of kayexalate * Low potassium diet * Continue to monitor * Appreciate nephrology recommendations (7) Anemia, chronic disease: Code(s): D63.8 - Anemia in other chronic diseases classified elsewhere Status: Acute Assessment and Plan: Hemoglobin hematocrit are consistent with baseline Subjective Date/time seen: 07/14/21 10:31 Interval history: Date of service: 07/14/2021 Abel Pike is a 75-year-old male who is seen in follow-up for weakness, found to have COVID-19 pneumonia. Feeling a bit better at this time. He does complain of sore throat and has phlegm in his throat that he cannot cough up. He denies shortness of breath. No chest pain. He does endorse weakness in his lower extremities, particularly his thighs that he states is worse when standing. At [facility]
--- NOTE | 2021-07-14 10:31 | PM.IMPN ---
Progress Note: A&P Assessment and Plan (1) Weakness: Code(s): R53.1 - Weakness Status: Acute Assessment and Plan: Complained of increased weakness, especially in his lower extremities, worsened over the past 4 days Patient started on steroids for polymyalgia rheumatica in March 2021. Office visit 2 weeks ago indicated gradual improvement in strength Patient now feels weaker. Etiology for this is unclear, may be secondary to acute infection with COVID-19 or acute kidney injury Continue with steroids Will check TSH, B12, folate Appreciate PT/OT evals (2) Acute on chronic renal insufficiency: Code(s): N28.9 - Disorder of kidney and ureter, unspecified; N18.9 - Chronic kidney disease, unspecified Status: Acute Assessment and Plan: Patient reports a history of stage 4 chronic kidney disease and he is established with Nephrology (Dr. Dubois) Baseline creatinine appears to be around 2.5 Creatinine on presentation was 5.1, improved to 4.4 today Continue with IV fluid rehydration. Cautious hydration in light of COVID-19 Appreciate nephrology consultation Etiology for this is unclear. May be prerenal given improvement with IV fluids. No evidence of obstruction. Could be due to infection. Will obtain renal US (3) COVID-19: Code(s): U07.1 - COVID-19 Status: Acute Assessment and Plan: COVID-19 PCR positive on 07/13/2021 Chest x-ray with no findings of pneumonia Patient has no oxygen requirements Supportive care He has been vaccinated for COVID-19 but did not get his booster since starting prednisone He did have COVID-19 in September 2019 requiring hospitalization and supplemental O2 Monitor inflammatory markers intermittently Continue isolation precautions (4) Polymyalgia rheumatica: Code(s): M35.3 - Polymyalgia rheumatica Status: Acute Assessment and Plan: Onset March 2021 Being managed with prednisone taper by his PCP Continue prednisone 20 mg daily (5) Type 2 diabetes mellitus with hyperglycemia: Code(s): E11.65 - Type 2 diabetes mellitus with hyperglycemia Status: Acute Assessment and Plan: Patient states his blood sugars have been running higher since starting prednisone Blood sugar on arrival was in the 50s Blood sugars now stable in the 150s Continue with Accu-Cheks, sliding scale insulin, hypoglycemic protocol Home glimepiride on hold Lantus 25 units q.h.s. Continue to monitor glucose trends (6) Hyperkalemia: Code(s): E87.5 - Hyperkalemia Status: Acute Assessment and Plan: Potassium 5.4. Secondary to MICHELLE Administer one time dose of kayexalate Low potassium diet Continue to monitor Appreciate nephrology recommendations (7) Anemia, chronic disease: Code(s): D63.8 - Anemia in other chronic diseases classified elsewhere Status: Acute Assessment and Plan: Hemoglobin hematocrit are consistent with baseline Subjective Date/time seen: 07/14/21 10:31 Interval history: Date of service: 07/14/2021 Abel Pike is a 75-year-old male who is seen in follow-up for weakness, found to have COVID-19 pneumonia. Feeling a bit better at this time. He does complain of sore throat and has phlegm in his throat that he cannot cough up. He denies shortness of breath. No chest pain. He does endorse weakness in his lower extremities, particularly his thighs that he states is worse when standing. At home he has been using a cane to get around and he is only able to go short distances and feels very worn out following. He denies fevers, chills, nausea, vomiting. Denies dizziness or lightheadedness. His appetite has been fair. He has no additional concerns. Review of Systems Review of Systems: All systems reviewed & are unremarkable except as noted in HPI and below Exam Narrative: General: Well-nourished, well-appearing 75 year-old male, sit
[2021-07-14 12:08] LABS: Glucose Point of Care 149 mg/dl (65-105)
[2021-07-14] MEDS: SODIUM POLYSTYRENE SULFONONATE 15 GM/60 ML BTL PO (12:36)
[2021-07-14 13:51] LABS: Folic Acid > 20.0 ng/mL (2.76->20); Vitamin B12 > 1000.0 pg/mL (239-931)
[2021-07-14 17:12] LABS: Glucose Point of Care 226 mg/dl (65-105)
[2021-07-14] MEDS: INSULIN ASPART (*BKC) 100 UNITS/ML SUB-Q (17:46)
[2021-07-14] MEDS: SODIUM CHLORIDE 0.9% IV 1,000 ML 100 ML IV CONT (17:46)
[2021-07-14 20:32] LABS: Glucose Point of Care 298 mg/dl (65-105)
[2021-07-14] MEDS: INSULIN GLARGINE (*BKC) 100 UNITS/ML 25 UNITS SUB-Q (21:22)
[2021-07-14] MEDS: DOXAZOSIN MESYLATE 4 MG TABLET 8 MG PO (21:22)
[2021-07-15] VITALS (14 sets, daily range): BP systolic 101–133; BP diastolic 47–64; PULSE 70–100; RESP 16–18; TEMP 36.1–38.1; O2SAT 94–100
[2021-07-15] MEDS: SODIUM CHLORIDE 0.9% IV 1,000 ML 100 ML IV CONT ×2 (04:18→18:20)
[2021-07-15 05:41] LABS: Hematocrit 22.1 % (42.0-52.0); Hemoglobin 7.2 g/dL (14.0-18.0); Mean Corpuscular HGB Conc 32.6 g/dl (32-36); Mean Corpuscular Hemoglobin 32.3 pg (26-34); Mean Corpuscular Volume 99.1 fl (80-100); Mean Platelet Volume 9.5 fl (7.4-10.4); Platelet Count Result 104 k/mm3 (150-375); Red Blood Count 2.23 M/mm3 (4.6-6.20); Red Cell Distribution Width 14.1 % (11.5-14.5); White Blood Count 4.7 K/mm3 (4.5-10.0)
[2021-07-15 06:00] LABS: Anion Gap 3 mmol/L (8-16); Blood Urea Nitrogen 102 mg/dL (9-20); CRP 2.4 mg/dL (<1.0); Calcium 7.7 mg/dL (8.4-10.2); Carbon Dioxide 19 mmol/L (22-30); Chloride 115 mmol/L (98-107); Estimated CRCL calculation 17 ml/min; Estimated Glomerular Filt Rate 16; Glucose 139 mg/dL (65-110); Lactate Dehydrogenase 640 U/L (313-618); Potassium 5.2 mmol/L (3.4-5.0); Sodium 137 mmol/L (137-145)
[2021-07-15 07:32] LABS: Glucose Point of Care 106 mg/dl (65-105)
[2021-07-15] MEDS: VITAMIN B CMPLX/VIT C/FOLIC AC 1 CAPSULE 1 CAP PO (09:29)
[2021-07-15] MEDS: FUROSEMIDE 20 MG TABLET 60 MG PO (09:29)
[2021-07-15] MEDS: carvediloL 25 MG TABLET PO ×2 (09:30→18:19)
[2021-07-15] MEDS: predniSONE 20 MG TABLET PO (09:30)
[2021-07-15] MEDS: cloNIDine HCL 0.1 MG TABLET PO ×2 (09:30→18:19)
[2021-07-15] MEDS: MIRABEGRON 25 MG ER TABLET PO (09:30)
[2021-07-15] MEDS: amLODIPine BESYLATE 5 MG TABLET 10 MG PO (09:30)
[2021-07-15] MEDS: HEPARIN SODIUM 5,000 UNITS/ML VIAL 5000 UNITS SUB-Q ×2 (09:30→20:30)
--- NOTE | 2021-07-15 11:16 | P.PNIM_ITS ---
Progress Note: A&P Assessment and Plan (1) Weakness: Code(s): R53.1 - Weakness Status: Acute Assessment and Plan: Complained of increased weakness, especially in his lower extremities, worsened over the past 4 days * Patient started on steroids for polymyalgia rheumatica in March 2021. Office visit 2 weeks ago indicated gradual improvement in strength * Patient now feels weaker. Etiology for this is unclear, may be secondary to acute infection with COVID-19 or acute kidney injury * Continue with steroids * Will check TSH, B12, folate * Appreciate PT/OT evals (2) Acute on chronic renal insufficiency: Code(s): N28.9 - Disorder of kidney and ureter, unspecified; N18.9 - Chronic kidney disease, unspecified Status: Acute Assessment and Plan: Patient reports a history of stage 4 chronic kidney disease and he is established with Nephrology (Dr. Dubois) * Baseline creatinine appears to be around 2.5 * Creatinine on presentation was 5.1, improved * Continue with IV fluid rehydration. Cautious hydration in light of COVID-19 * Appreciate nephrology consultation * Etiology for this is unclear. May be prerenal given improvement with IV fluids. No evidence of obstruction. Could be due to infection. * Will obtain renal US (3) COVID-19: Code(s): U07.1 - COVID-19 Status: Acute Assessment and Plan: COVID-19 PCR positive on 07/13/2021 * Chest x-ray with no findings of pneumonia * Patient has no oxygen requirements * Supportive care * He has been vaccinated for COVID-19 but did not get his booster since starting prednisone * He did have COVID-19 in September 2019 requiring hospitalization and supplemental O2 * Monitor inflammatory markers intermittently * Continue isolation precautions (4) Polymyalgia rheumatica: Code(s): M35.3 - Polymyalgia rheumatica Status: Acute Assessment and Plan: Onset March 2021 * Being managed with prednisone taper by his PCP * Continue prednisone 20 mg daily (5) Type 2 diabetes mellitus with hyperglycemia: Code(s): E11.65 - Type 2 diabetes mellitus with hyperglycemia Status: Acute Assessment and Plan: Patient states his blood sugars have been running higher since starting prednisone * Blood sugar on arrival was in the 50s * Blood sugars now stable in the 150s * Continue with Accu-Cheks, sliding scale insulin, hypoglycemic protocol * Home glimepiride on hold * Lantus 25 units q.h.s. * Continue to monitor glucose trends (6) Hyperkalemia: Code(s): E87.5 - Hyperkalemia Status: Acute Assessment and Plan: Potassium 5.4. * Secondary to MICHELLE * Administer one time dose of kayexalate on 07/14 2021 * Low potassium diet * Continue to monitor * Appreciate nephrology recommendations (7) Anemia, chronic disease: Code(s): D63.8 - Anemia in other chronic diseases classified elsewhere Status: Acute Assessment and Plan: Hemoglobin hematocrit are consistent with baseline Subjective Date/time seen: 07/15/21 11:16 Patient is doing well this morning. He is alert and oriented x4. He reports he has had decreased oral intake. Discussed his renal function and Nephrology following. Slight improvement this morning. Patient will continue hydration. Hemoglobin currently stable at 7.2. Potassium was noted to be elevated at 5.2 he did get a dose of Kayexalate yesterday. Continue to monitor-defer to Nephrology. No acute events overnight reported by nursing staff. Continue to
--- NOTE | 2021-07-15 11:16 | PM.IMPN ---
Progress Note: A&P Assessment and Plan (1) Weakness: Code(s): R53.1 - Weakness Status: Acute Assessment and Plan: Complained of increased weakness, especially in his lower extremities, worsened over the past 4 days Patient started on steroids for polymyalgia rheumatica in March 2021. Office visit 2 weeks ago indicated gradual improvement in strength Patient now feels weaker. Etiology for this is unclear, may be secondary to acute infection with COVID-19 or acute kidney injury Continue with steroids Will check TSH, B12, folate Appreciate PT/OT evals (2) Acute on chronic renal insufficiency: Code(s): N28.9 - Disorder of kidney and ureter, unspecified; N18.9 - Chronic kidney disease, unspecified Status: Acute Assessment and Plan: Patient reports a history of stage 4 chronic kidney disease and he is established with Nephrology (Dr. Dubois) Baseline creatinine appears to be around 2.5 Creatinine on presentation was 5.1, improved Continue with IV fluid rehydration. Cautious hydration in light of COVID-19 Appreciate nephrology consultation Etiology for this is unclear. May be prerenal given improvement with IV fluids. No evidence of obstruction. Could be due to infection. Will obtain renal US (3) COVID-19: Code(s): U07.1 - COVID-19 Status: Acute Assessment and Plan: COVID-19 PCR positive on 07/13/2021 Chest x-ray with no findings of pneumonia Patient has no oxygen requirements Supportive care He has been vaccinated for COVID-19 but did not get his booster since starting prednisone He did have COVID-19 in September 2019 requiring hospitalization and supplemental O2 Monitor inflammatory markers intermittently Continue isolation precautions (4) Polymyalgia rheumatica: Code(s): M35.3 - Polymyalgia rheumatica Status: Acute Assessment and Plan: Onset March 2021 Being managed with prednisone taper by his PCP Continue prednisone 20 mg daily (5) Type 2 diabetes mellitus with hyperglycemia: Code(s): E11.65 - Type 2 diabetes mellitus with hyperglycemia Status: Acute Assessment and Plan: Patient states his blood sugars have been running higher since starting prednisone Blood sugar on arrival was in the 50s Blood sugars now stable in the 150s Continue with Accu-Cheks, sliding scale insulin, hypoglycemic protocol Home glimepiride on hold Lantus 25 units q.h.s. Continue to monitor glucose trends (6) Hyperkalemia: Code(s): E87.5 - Hyperkalemia Status: Acute Assessment and Plan: Potassium 5.4. Secondary to MICHELLE Administer one time dose of kayexalate on 07/14 2021 Low potassium diet Continue to monitor Appreciate nephrology recommendations (7) Anemia, chronic disease: Code(s): D63.8 - Anemia in other chronic diseases classified elsewhere Status: Acute Assessment and Plan: Hemoglobin hematocrit are consistent with baseline Subjective Date/time seen: 07/15/21 11:16 Patient is doing well this morning. He is alert and oriented x4. He reports he has had decreased oral intake. Discussed his renal function and Nephrology following. Slight improvement this morning. Patient will continue hydration. Hemoglobin currently stable at 7.2. Potassium was noted to be elevated at 5.2 he did get a dose of Kayexalate yesterday. Continue to monitor-defer to Nephrology. No acute events overnight reported by nursing staff. Continue to monitor. Remains in isolation for COVID precautions. But does not have any acute respiratory distress. Review of Systems Review of Systems: All systems reviewed & are unremarkable except as noted in HPI and below Exam Narrative: General: Well-nourished, well-appearing 75 year-old male, sitting up in bed, comfortable, NARD Neuro: awake, alert and oriented x4, speech clear, no focal neuro deficits noted HEENMT: normocephalic, atraum
[2021-07-15 11:38] LABS: Glucose Point of Care 116 mg/dl (65-105)
[2021-07-15 16:29] LABS: Glucose Point of Care 248 mg/dl (65-105)
[2021-07-15] MEDS: INSULIN ASPART (*BKC) 100 UNITS/ML SUB-Q (18:18)
[2021-07-15 20:23] LABS: Glucose Point of Care 415 mg/dl (65-105)
[2021-07-15] MEDS: DOXAZOSIN MESYLATE 4 MG TABLET 8 MG PO (20:30)
[2021-07-15] MEDS: INSULIN GLARGINE (*BKC) 100 UNITS/ML 25 UNITS SUB-Q (20:31)
[2021-07-15] MEDS: INSULIN ASPART (*BKC) 100 UNITS/ML 10 UNITS SUB-Q (20:35)
[2021-07-16] VITALS (8 sets, daily range): BP systolic 110–139; BP diastolic 43–71; PULSE 72–95; RESP 12–16; TEMP 36.6–37.6; O2SAT 100
[2021-07-16 00:43] LABS: Glucose Point of Care 258 mg/dl (65-105)
[2021-07-16] MEDS: SODIUM CHLORIDE 0.9% IV 1,000 ML 100 ML IV CONT ×2 (04:20→09:17)
[2021-07-16 08:17] LABS: Basophils Percent Auto 0.2 % (0.2-1.2); Eosinophils Absolute Auto 0.1 K/mm3 (0-0.3); Eosinophils Percent Auto 1.4 % (0-4.4); Hematocrit 22.4 % (42.0-52.0); Hemoglobin 7.3 g/dL (14.0-18.0); Immature Granulocyte Percent A 2.3 % (0-0.5); Lymphocytes Absolute Auto 0.52 K/mm3 (0.9-3.2); Mean Corpuscular HGB Conc 32.6 g/dl (32-36); Mean Corpuscular Volume 98.2 fl (80-100); Mean Platelet Volume 9.8 fl (7.4-10.4); Monocytes Absolute Auto 0.3 K/mm3 (0.1-0.6); Monocytes Percent Auto 7.4 % (2.6-8.5); Neutrophils Absolute Auto 3.3 K/mm3 (1.3-6.7); Neutrophils Percent Auto 76.7 % (45.5-73.1); Nucleated Red Blood Cells Perc 0.5 % (0.0-0.2); Platelet Count Result 115 k/mm3 (150-375); Red Blood Count 2.28 M/mm3 (4.6-6.20); White Blood Count 4.3 K/mm3 (4.5-10.0)
[2021-07-16 08:25] LABS: Glucose Point of Care 72 mg/dl (65-105)
[2021-07-16 08:54] LABS: Anion Gap 6 mmol/L (8-16); Blood Urea Nitrogen 93 mg/dL (9-20); Calcium 7.8 mg/dL (8.4-10.2); Carbon Dioxide 21 mmol/L (22-30); Chloride 116 mmol/L (98-107); Estimated CRCL calculation 18 ml/min; Estimated Glomerular Filt Rate 18; Glucose 58 mg/dL (65-110); Magnesium 1.9 mg/dL (1.6-2.3); Potassium 4.8 mmol/L (3.4-5.0); Sodium 143 mmol/L (137-145)
[2021-07-16] MEDS: cloNIDine HCL 0.1 MG TABLET PO (09:17)
[2021-07-16] MEDS: carvediloL 25 MG TABLET PO (09:17)
[2021-07-16] MEDS: predniSONE 20 MG TABLET PO (09:17)
[2021-07-16] MEDS: MIRABEGRON 25 MG ER TABLET PO (09:17)
[2021-07-16] MEDS: VITAMIN B CMPLX/VIT C/FOLIC AC 1 CAPSULE 1 CAP PO (09:17)
[2021-07-16] MEDS: HEPARIN SODIUM 5,000 UNITS/ML VIAL 5000 UNITS SUB-Q (09:18)
[2021-07-16] MEDS: amLODIPine BESYLATE 5 MG TABLET 10 MG PO (09:18)
[2021-07-16] MEDS: FUROSEMIDE 20 MG TABLET 60 MG PO (09:18)
[2021-07-16 09:37] LABS: Glucose Point of Care 132 mg/dl (65-105)
--- NOTE | 2021-07-16 09:38 | PC.NURSE ---
Patient blood glucose was low on morning labs, patient was already eating breakfast when the result was called to this nurse. Recheck blood glucose WNL.
[2021-07-16 11:33] LABS: Glucose Point of Care 114 mg/dl (65-105)
--- NOTE | 2021-07-16 11:39 | P.DS_ITS ---
DS: Admitting Diagnosis Discharge Date 07/16/2021 Admitting Diagnosis Acute on chronic kidney disease COVID-19 positive on 07/13 2021 Diabetes mellitus type 2 with hyperglycemia Hyperkalemia Anemia of chronic disease DS: Discharge Diagnosis Discharge Diagnosis (1) Weakness: Code(s): R53.1 - Weakness Status: Acute Assessment and Plan: Complained of increased weakness, especially in his lower extremities, worsened over the past 4 days * Patient started on steroids for polymyalgia rheumatica in March 2021. Office visit 2 weeks ago indicated gradual improvement in strength * Patient now feels weaker. Etiology for this is unclear, may be secondary to acute infection with COVID-19 or acute kidney injury * Continue with steroids * Home health is set up for July 24, 2021 (2) Acute on chronic renal insufficiency: Code(s): N28.9 - Disorder of kidney and ureter, unspecified; N18.9 - Chronic kidney disease, unspecified Status: Acute Assessment and Plan: Patient reports a history of stage 4 chronic kidney disease and he is established with Nephrology (Dr. Dubois) * Renal function back to baseline, 3.4-- (October 14, 2019). * Discussed oral intake and to follow with his manager of compliance, repeat labs in 1 week (3) COVID-19: Code(s): U07.1 - COVID-19 Status: Acute Assessment and Plan: COVID-19 PCR positive on 07/13/2021 * Chest x-ray with no findings of pneumonia * Patient has no oxygen requirements * Supportive care * He has been vaccinated for COVID-19 but did not get his booster since starting prednisone * He did have COVID-19 in September 2019 requiring hospitalization and supplemental O2 * Monitor inflammatory markers intermittently * Continue isolation precautions (4) Polymyalgia rheumatica: Code(s): M35.3 - Polymyalgia rheumatica Status: Acute Assessment and Plan: Onset March 2021 * Being managed with prednisone taper by his PCP * Continue prednisone 20 mg daily (5) Type 2 diabetes mellitus with hyperglycemia: Code(s): E11.65 - Type 2 diabetes mellitus with hyperglycemia Status: Acute Assessment and Plan: Patient states his blood sugars have been running higher since starting prednisone * Blood sugar on arrival was in the 50s * Blood sugars now stable in the 150s * Continue with Accu-Cheks, sliding scale insulin, hypoglycemic protocol * Home glimepiride on hold * Lantus 25 units q.h.s. * Continue to monitor glucose trends (6) Hyperkalemia: Code(s): E87.5 - Hyperkalemia Status: Acute Assessment and Plan: Potassium 5.4. * Secondary to MICHELLE * Administer one time dose of kayexalate on 07/14 2021 * Low potassium diet * Continue to monitor * Appreciate nephrology recommendations (7) Anemia, chronic disease: Code(s): D63.8 - Anemia in other chronic diseases classified elsewhere Status: Acute Assessment and Plan: Hemoglobin hematocrit are consistent with baseline DS: Summary Hospital Course Reason for hospitalization: Acute on chronic kidney disease Hospital Course: Patient is a 75-year-old gentleman who presented to the emergency department after increasing weakness over the last several days. He reported that he was no longer able to move and therefore he called EMS. Patient has had a decreased in appetite and did not have good oral intake. While in the emergency department he denies any chest pain, shortness a red, lightheadedness
--- NOTE | 2021-07-16 11:39 | PM.DS ---
DS: Admitting Diagnosis Discharge Date 07/16/2021 Admitting Diagnosis Acute on chronic kidney disease COVID-19 positive on 07/13 2021 Diabetes mellitus type 2 with hyperglycemia Hyperkalemia Anemia of chronic disease DS: Discharge Diagnosis Discharge Diagnosis (1) Weakness: Code(s): R53.1 - Weakness Status: Acute Assessment and Plan: Complained of increased weakness, especially in his lower extremities, worsened over the past 4 days Patient started on steroids for polymyalgia rheumatica in March 2021. Office visit 2 weeks ago indicated gradual improvement in strength Patient now feels weaker. Etiology for this is unclear, may be secondary to acute infection with COVID-19 or acute kidney injury Continue with steroids Home health is set up for July 24, 2021 (2) Acute on chronic renal insufficiency: Code(s): N28.9 - Disorder of kidney and ureter, unspecified; N18.9 - Chronic kidney disease, unspecified Status: Acute Assessment and Plan: Patient reports a history of stage 4 chronic kidney disease and he is established with Nephrology (Dr. Dubois) Renal function back to baseline, 3.4-- (October 14, 2019). 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, repeat labs in 1 week (3) COVID-19: Code(s): U07.1 - COVID-19 Status: Acute Assessment and Plan: COVID-19 PCR positive on 07/13/2021 Chest x-ray with no findings of pneumonia Patient has no oxygen requirements Supportive care He has been vaccinated for COVID-19 but did not get his booster since starting prednisone He did have COVID-19 in September 2019 requiring hospitalization and supplemental O2 Monitor inflammatory markers intermittently Continue isolation precautions (4) Polymyalgia rheumatica: Code(s): M35.3 - Polymyalgia rheumatica Status: Acute Assessment and Plan: Onset March 2021 Being managed with prednisone taper by his PCP Continue prednisone 20 mg daily (5) Type 2 diabetes mellitus with hyperglycemia: Code(s): E11.65 - Type 2 diabetes mellitus with hyperglycemia Status: Acute Assessment and Plan: Patient states his blood sugars have been running higher since starting prednisone Blood sugar on arrival was in the 50s Blood sugars now stable in the 150s Continue with Accu-Cheks, sliding scale insulin, hypoglycemic protocol Home glimepiride on hold Lantus 25 units q.h.s. Continue to monitor glucose trends (6) Hyperkalemia: Code(s): E87.5 - Hyperkalemia Status: Acute Assessment and Plan: Potassium 5.4. Secondary to MICHELLE Administer one time dose of kayexalate on 07/14 2021 Low potassium diet Continue to monitor Appreciate nephrology recommendations (7) Anemia, chronic disease: Code(s): D63.8 - Anemia in other chronic diseases classified elsewhere Status: Acute Assessment and Plan: Hemoglobin hematocrit are consistent with baseline DS: Summary Hospital Course Reason for hospitalization: Acute on chronic kidney disease Hospital Course: Patient is a 75-year-old gentleman who presented to the emergency department after increasing weakness over the last several days. He reported that he was no longer able to move and therefore he called EMS. Patient has had a decreased in appetite and did not have good oral intake. While in the emergency department he denies any chest pain, shortness a red, lightheadedness or dizziness or near syncopal episodes. He reports taking medications as prescribed. Patient has been following with his primary care physician for diabetes and increase blood glucose levels. Medications were adjusted at that time. Patient has developed multiple hypoglycemic episodes due to this instance. And while he was in the emergency department his blood glucose was noted to be 66. He denied any dysuria, hematuria or urgency. 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
--- NOTE | 2021-07-16 11:49 | PC.NURSE ---
On 07/16/21, the student, Jeremiah Wallace, provided care and completed [facility] documentation on this patient. I have reviewed the student's documentation and agree with the findings.
--- NOTE | 2021-07-16 12:15 | PC.NURSE ---
On 07/16/21, the student, Jeremiah Wallace, provided care and completed [facility] documentation on this patient. I have reviewed the student's documentation and agree with the findings.
== END 2021-07-16 14:58 | disposition home health service (06) | DRG 682 ==
LOC: ANHED 15:12 → ANH3MED 18:11
PROVIDERS: Nurse Practitioner Adult Health; Physician Assistant; Admitting Provider Internal Medicine; Emergency Provider Emergency Medicine; PCP Family Medicine Adolescent Medicine; Visit Provider Nurse Practitioner Family
DX: N17.9 Acute kidney failure, unspecified (principal); U07.1 COVID-19; Q68.1 Congenital deformity of finger(s) and hand; N18.5 Chronic kidney disease, stage 5; M35.3 Polymyalgia rheumatica; E11.65 Type 2 diabetes mellitus with hyperglycemia; E87.5 Hyperkalemia; D63.8 Anemia in other chronic diseases classified elsewhere; E11.22 Type 2 diabetes mellitus with diabetic chronic kidney disease; L30.9 Dermatitis, unspecified; J32.9 Chronic sinusitis, unspecified; E78.5 Hyperlipidemia, unspecified; Z85.46 Personal history of malignant neoplasm of prostate; Z98.42 Cataract extraction status, left eye; Z98.41 Cataract extraction status, right eye; Z96.1 Presence of intraocular lens
CPT/HCPCS: 36415; 51701; 71046; 76775; 80048; 80053; 81001; 82607; 82728; 82746; 82948; 83605; 83615; 83735; 84443; 85025; 85027; 86140; 93005; 97162; 97165; 97530; 99285; A9270; C9803; J1644; J1815; J7030; J7512; U0003; U0005

== ENCOUNTER 2021-08-06 11:43 | Outpatient (NON) | payer OTHER, MEDICAID, SELFPAY ==
[2021-08-06 12:12] LABS: Basophils Percent Auto 0.2 % (0.2-1.2); Eosinophils Absolute Auto 0.1 K/mm3 (0-0.3); Hematocrit 23.5 % (42.0-52.0); Hemoglobin 7.8 g/dL (14.0-18.0); Immature Granulocyte Absolute 0.09 K/mm3 (0.00-0.031); Immature Granulocyte Percent A 1.4 % (0-0.5); Lymphocytes Percent Auto 6.4 % (18.3-44.2); Mean Corpuscular HGB Conc 33.2 g/dl (32-36); Mean Corpuscular Hemoglobin 32.1 pg (26-34); Mean Corpuscular Volume 96.7 fl (80-100); Mean Platelet Volume 9.7 fl (7.4-10.4); Monocytes Absolute Auto 0.4 K/mm3 (0.1-0.6); Monocytes Percent Auto 6.1 % (2.6-8.5); Neutrophils Absolute Auto 5.3 K/mm3 (1.3-6.7); Neutrophils Percent Auto 84.9 % (45.5-73.1); Platelet Count Result 141 k/mm3 (150-375); Red Blood Count 2.43 M/mm3 (4.6-6.20); Red Cell Distribution Width 13.5 % (11.5-14.5); White Blood Count 6.3 K/mm3 (4.5-10.0)
[2021-08-06 12:44] LABS: Iron 67 ug/dL (49-181)
[2021-08-06 12:45] LABS: Albumin Level 2.7 g/dL (3.5-5.1); Anion Gap 4 mmol/L (8-16); Blood Urea Nitrogen 69 mg/dL (9-20); Calcium 7.7 mg/dL (8.4-10.2); Carbon Dioxide 29 mmol/L (22-30); Chloride 101 mmol/L (98-107); Estimated Glomerular Filt Rate 19; Glucose 269 mg/dL (65-110); Phosphorus 4.1 mg/dL (2.5-4.5); Potassium 3.5 mmol/L (3.4-5.0); Sodium 134 mmol/L (137-145); Uric Acid 10.3 mg/dL (3.5-8.5)
[2021-08-06 12:57] LABS: Parathyroid Intact 184.2 pg/mL (7.5-53.5)
== END 2021-08-06 11:44 | disposition home or self-care (01) ==
PROVIDERS: PCP Family Medicine Adolescent Medicine; Visit Provider Internal Medicine Nephrology
DX: N18.4 Chronic kidney disease, stage 4 (severe) (principal); D63.1 Anemia in chronic kidney disease
CPT/HCPCS: 80069; 82728; 83540; 83970; 84550; 85025

== ENCOUNTER 2021-12-09 09:19 | Outpatient (CLI) | payer OTHER, MEDICAID, SELFPAY ==
[2021-12-09 10:24] LABS: Anion Gap 8 mmol/L (8-16); Blood Urea Nitrogen 58 mg/dL (9-20); Calcium 9.1 mg/dL (8.4-10.2); Carbon Dioxide 35 mmol/L (22-30); Chloride 94 mmol/L (98-107); Estimated Glomerular Filt Rate 13; Glucose 236 mg/dL (65-110); Potassium 3.2 mmol/L (3.4-5.0); Sodium 137 mmol/L (137-145)
== END 2021-12-09 09:20 | disposition home or self-care (01) ==
LOC: ANHLAB 09:23
PROVIDERS: PCP Family Medicine Adolescent Medicine; Visit Provider Internal Medicine Cardiovascular Disease
DX: N18.5 Chronic kidney disease, stage 5 (principal)
CPT/HCPCS: 36415; 80048

== ENCOUNTER 2022-01-10 11:06 | Observation (INO) | payer MEDICARE, MEDICAID, SELFPAY ==
[2022-01-10] VITALS (18 sets, daily range): BP systolic 99–166; BP diastolic 40–73; PULSE 48–80; RESP 12–20; TEMP 36.4–36.5; O2SAT 97–99
--- NOTE | ~2022-01-10 | XR_ITS ---
EXAMINATION: XR chest 1V portable Exam Date/Time: 01/11/2022 11:15 CDT HISTORY: MICHELLE Comparison: 07/13/2021. RESULT: Lines, tubes, and devices: None. Lungs and pleura: Clear. Cardiomediastinal silhouette: Stable. Other: No acute osseous or upper abdominal finding. IMPRESSION: No acute cardiopulmonary process. Reviewed, dictated and finalized at location K.
--- NOTE | ~2022-01-10 | US_ITS ---
EXAMINATION: US renal BI DATE: 01/11/2022 08:49 INDICATION: worsening renal failure TECHNIQUE: Multiple ultrasound grayscale images of the kidneys were obtained. COMPARISON: 07/14/2021. FINDINGS: The right kidney measures 10.5 x 4.6 x 6.2 cm. The left kidney measures 11.6 x 5.0 x 5.6 cm. The kidn eys demonstrate normal parenchymal echogenicity. Multiple echogenic shadowing foci on the left, large st measuring 7 mm likely representing nonobstructive stones. There is no hydronephrosis. The bladder is normal, with bilateral ureteral jets. IMPRESSION: Left nephrolithiasis. Reviewed, dictated and finalized at location K. IMPRESSION: Left nephrolithiasis.
--- NOTE | 2022-01-10 11:53 | ECG_ITS ---
Measurements Intervals [place] Rate: 53 P: 39 OR: 190 QRS: -33 QRSD: 107 T: 121 QT: 460 QTc: 432 Interpretive Statements SINUS BRADYCARDIA LEFT AXIS DEVIATION [QRS AXIS < -30] NONSPECIFIC T-WAVE ABNORMALITY COMPARED TO ECG 07/13/2021 11:31:13 NONSPECIFIC T-WAVE ABNORMALITY AND QT INTERVAL IS LONGER SINUS RHYTHM REPLACES ATRIAL FIBRILLATION Electronically Signed On 01-10-2022 12:55:58 CDT by Shahram Cade M.D.
[2022-01-10 12:22] LABS: Basophils Percent Auto 0.5 % (0.2-1.2); Eosinophils Absolute Auto 0.2 K/mm3 (0-0.3); Eosinophils Percent Auto 4.2 % (0-4.4); Hematocrit 35.3 % (42.0-52.0); Hemoglobin 11.3 g/dL (14.0-18.0); Immature Granulocyte Absolute 0.01 K/mm3 (0.00-0.031); Immature Granulocyte Percent A 0.2 % (0-0.5); Lymphocytes Absolute Auto 0.77 K/mm3 (0.9-3.2); Lymphocytes Percent Auto 13.6 % (18.3-44.2); Mean Corpuscular Hemoglobin 29.4 pg (26-34); Mean Corpuscular Volume 91.9 fl (80-100); Mean Platelet Volume 9.2 fl (7.4-10.4); Monocytes Absolute Auto 0.4 K/mm3 (0.1-0.6); Monocytes Percent Auto 7.8 % (2.6-8.5); Neutrophils Absolute Auto 4.2 K/mm3 (1.3-6.7); Neutrophils Percent Auto 73.7 % (45.5-73.1); Platelet Count Result 182 k/mm3 (150-375); Red Blood Count 3.84 M/mm3 (4.6-6.20); Red Cell Distribution Width 16.3 % (11.5-14.5); White Blood Count 5.7 K/mm3 (4.5-10.0)
[2022-01-10 12:33] LABS: Alanine Aminotransferase 12 U/L (6-50); Albumin Level 3.3 g/dL (3.5-5.1); Alkaline Phosphatase 70 U/L (38-126); Anion Gap 9 mmol/L (8-16); Aspartate Amino Transferase 24 U/L (17-59); Bilirubin,Total 0.3 mg/dL (0.2-1.3); Blood Urea Nitrogen 62 mg/dL (9-20); Calcium 9.1 mg/dL (8.4-10.2); Carbon Dioxide 31 mmol/L (22-30); Chloride 98 mmol/L (98-107); Estimated CRCL calculation 13 ml/min; Estimated Glomerular Filt Rate 12; Glucose 191 mg/dL (65-110); Potassium 3.8 mmol/L (3.4-5.0); Sodium 138 mmol/L (137-145)
--- NOTE | 2022-01-10 12:34 | ED.GENADULT ---
HPI - General Adult General Chief complaint: Weakness Stated complaint: weakness Time Seen by Provider: 01/10/22 12:08 History of Present Illness HPI narrative: 76-year-old male presented the emergency department for evaluation of increased generalized weakness over the last few days. Patient states he does have history of anemia but has been following up with heme-onc and states his hemoglobin has been increasing. Patient denies any active bleeding. Patient denies any coughs colds fevers. Patient states he has been eating and drinking normally over the last few days. Patient states over the last few days he has had increased generalized weakness and tiredness but denies any other specific complaints. Related Data Home Medications Medication Instructions Recorded Confirmed sodium zirconium cyclosilicate 10 10 g PO QNOON 07/13/21 01/10/22 gram oral powder packet (Lokelma) spironolactone 25 mg tablet 25 mg PO DAILY 07/13/21 01/10/22 vitamin B complex and vitamin C 1 cap PO DAILY 07/13/21 01/10/22 no.20-folic acid 1 mg capsule (Triphrocaps) clonidine HCl 0.1 mg tablet 0.1 mg PO DAILY 08/21/21 01/10/22 cholecalciferol (vitamin D3) 50 50 mcg PO BID 01/10/22 01/10/22 mcg (2,000 unit) tablet doxazosin 8 mg tablet 8 mg PO QHS 01/10/22 01/10/22 ferrous sulfate 325 mg (65 mg 325 mg PO BID 01/10/22 01/10/22 iron) tablet (Iron (ferrous sulfate)) Allergies Allergy/AdvReac Type Severity Reaction Status Date / Time sitagliptin [From ] Allergy Rash Verified 01/10/22 14:54 Sulfa (Sulfonamide Allergy Unknown Verified 01/10/22 14:54 Antibiotics) Review of Systems Review of Systems: CONSTITUTIONAL: Increased generalized weakness EYES: Denies visual changes, redness, or discharge. ENT: Denies rhinorrhea, congestion, sore throat, or otalgia. CARDIOVASCULAR: Denies chest pain, palpitations, or edema. RESPIRATORY: Denies cough or dyspnea. GASTROINTESTINAL: Denies abdominal pain, nausea, vomiting, or diarrhea. GENITOURINARY: Denies dysuria or hematuria. SKIN: Denies rash or itching. MUSCULOSKELETAL: Denies back pain, joint pain, or myalgia. NEUROLOGIC: Denies headache, numbness, or weakness. 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 Abnormal some on the left hand COVID-19 /20 COVID-19 Eczema History of prostate cancer Hyperlipidemia Pneumonia due to COVID-19 virus Polymyalgia rheumatica Ulcer Weakness Surgical History Surgical History Status post cataract extraction of both eyes with insertion of intraocular lens Family History Family History Father Lung cancer Daughter Chronic lung disease Morbid obesity Grandparent Asthma Mother Hypertension Other Diabetes mellitus Heart disease Malignant neoplasm of prostate Social History Social History (Updated 01/10/22 @ 15:58 by Padmaja Duff NP) Social History: 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 The patient is and lives with his is the durable power special diet cook for healthcare. He is a lifelong nonsmoker. He did chew tobacco . Primary care physician: Dr. Srikanth Danielson Code status: Full code Smoking status: Never smoker Smokeless tobacco user: chewing tobacco Second hand tobacco smoke exposure: No Alcohol intake: never Alcohol use details: The patient only rarely drink and only in moderation but quit drinking in 1975 when he found Jovani. Substance use: never Substance use type: does not use Additional living arrangements comments: He lives in [place] with his of 46 years. He has total of 6 children 5 of which are still living and
[2022-01-10 13:27] LABS: Appearance Urine Clear (Clear); Bilirubin Urine Negative (Negative); Blood Urine Negative (Negative); Color Urine Yellow (Yellow); Glucose Urine UA Negative (Negative); Ketones Urine Negative (Negative); Leukocyte Esterase Ur Negative LEU/UL (Negative); Nitrate Urine Negative (Negative); Protein Urine 3+ mg/dL (Negative); Specific Grav Ur 1.025 (1.001-1.035); Urobilinogen Urine 0.2 mg/dL (<2.0); pH Urine 5.5 (5.0-9.0)
[2022-01-10 13:41] LABS: Bacteria Urine Trace /hpf; Mucus Urine Rare /lpf; RBC Urine 0-2 /hpf (0-2); WBC Urine 0-3 /hpf
--- NOTE | 2022-01-10 13:49 | PM.IMHP ---
H&P: HPI History of Present Illness Date/Time: 01/10/22 13:49 Chief Complaint: generalized weakness Narrative: this is a 76-year-old male patient who came to the emergency room to be evaluated for any increased generalized weakness over the last few days. He does have a history of anemia and he is being seen by Hematology / Oncology. However he states that his hemoglobin has been improving. He denies any active bleeding he denies any fever chills. Patient has been eating and drinking normally. no nausea vomiting or diarrhea. H&H is currently 11.3 and 35.3. patient's creatinine is 4.7. Last Month was 4.5. . The patient's GFR is now 12 and his glucose is 191. IV fluids was ordered for the patient. COVID test was collected but not resulted yet. The patient is being admitted to observation status on the date of service of 01/10/2022. Review of Systems Review of Systems: See HPI All systems reviewed & are unremarkable except as noted in HPI and below Constitutional: Constitutional: Reports as per HPI and Reports no additional constitutional complaints Eyes: Eyes: Reports as per HPI and Reports no additional eye complaints ENT: Reports system reviewed and no additional complaints, except as documented and Reports Normal hearing present Cardiovascular: Cardiovascular: Reports no additional cardiovascular complaints Respiratory: Respiratory: Reports no additional respiratory complaints and Reports no additional respiratory complaints Gastrointestinal: Gastrointestinal: Reports as per HPI and Reports no additional gastrointestinal complaints Musculoskeletal: Musculoskeletal: Reports no additional musculoskeletal complaints Integumentary/Breasts: Skin/Breast: Reports system reviewed and no additional complaints, except as docu and Reports as per HPI Neurologic: Reports system reviewed and no additional complaints, except as documented, Reports as per HPI and Reports Normal hearing present Psychiatric: Psychiatric: Reports no additional psychiatric complaints and Reports as per HPI Endocrine: Endocrine: Reports no additional endocrine complaints Hematologic/Lymphatic: Hematologic/Lymphatic: Reports no additional hematologic/lymphatic complaints Allergic/Immunologic: Allergic/Immunologic: Reports no additional allergic/immunologic complaints [facility] Past Medical History Medical History Allergic rhinitis Anemia of chronic disease Chronic kidney disease Chronic sinusitis 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 Abnormal some on the left hand COVID-19 5/20 COVID-19 Eczema History of prostate cancer Hyperlipidemia Pneumonia due to COVID-19 virus Polymyalgia rheumatica Ulcer Weakness Surgical History Surgical History Status post cataract extraction of both eyes with insertion of intraocular lens Family History Family History Father Lung cancer Daughter Chronic lung disease Morbid obesity Grandparent Asthma Mother Hypertension Other Diabetes mellitus Heart disease Malignant neoplasm of prostate Social History Social History (Updated 01/10/22 @ 15:58 by Padmaja Duff NP) Social History: 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 The patient is and lives with his is the durable power raw stock machine feeder for healthcare. He is a lifelong nonsmoker. He did chew tobacco . Primary care physician: Dr. Srikanth Danielson Code status: Full code Smoking status: Never smoker Smokeless tobacco user: chewing tobacco Second hand tobacco smoke exposure: No Alcohol intake: never Alcohol use details: The patient only rarely drink and only in moderation but quit drinking in 1975 when he found [employer]. Substance use: never Substance use type: does not use Additiona
[2022-01-10 13:51] LABS: Add Urine Microscopic? YES
[2022-01-10 14:04] LABS: SARS-CoV-2 RNA PCR Negative
--- NOTE | 2022-01-10 15:15 | ADMGEN ---
This patient, Abel Pike, was admitted to 2 Medical Room 240-. Patient/family oriented to hospital policies and general routines including ID bracelet, bed and alarms, visiting hours, pain management, procedures, bathroom and other care routines, personal items, smoking policy, room service/diet, and visiting hours. Information on how to activate the Rapid Response Team has been discussed. Patient/Family are encouraged to report perceived risks to care and to ask questions if they do not understand what they are told or what they should do.
[2022-01-10] MEDS: SODIUM CHLORIDE 0.9% IV 1,000 ML 125 ML IV CONT (15:46)
[2022-01-10 17:14] LABS: Glucose Point of Care 160 mg/dl (65-105)
[2022-01-10 20:20] LABS: Glucose Point of Care 230 mg/dl (65-105)
[2022-01-10] MEDS: DOXAZOSIN MESYLATE 4 MG TABLET 8 MG PO (20:38)
[2022-01-10] MEDS: carvediloL 25 MG TABLET PO (20:39)
[2022-01-11] VITALS (9 sets, daily range): BP systolic 98–151; BP diastolic 25–88; PULSE 51–80; RESP 12–18; TEMP 36.3–36.8; O2SAT 97–100
[2022-01-11] MEDS: SODIUM CHLORIDE 0.9% IV 1,000 ML 125 ML IV CONT (00:37)
[2022-01-11 06:00] LABS: Basophils Percent Auto 0.5 % (0.2-1.2); Eosinophils Absolute Auto 0.4 K/mm3 (0-0.3); Hematocrit 34.5 % (42.0-52.0); Hemoglobin 10.6 g/dL (14.0-18.0); Immature Granulocyte Absolute 0.02 K/mm3 (0.00-0.031); Immature Granulocyte Percent A 0.3 % (0-0.5); Lymphocytes Absolute Auto 0.92 K/mm3 (0.9-3.2); Lymphocytes Percent Auto 15.3 % (18.3-44.2); Mean Corpuscular HGB Conc 30.7 g/dl (32-36); Mean Corpuscular Hemoglobin 28.9 pg (26-34); Monocytes Absolute Auto 0.7 K/mm3 (0.1-0.6); Monocytes Percent Auto 11.3 % (2.6-8.5); Neutrophils Percent Auto 66.6 % (45.5-73.1); Platelet Count Result 162 k/mm3 (150-375); Red Blood Count 3.67 M/mm3 (4.6-6.20)
[2022-01-11 06:07] LABS: Lactic Acid Reflex 0.6 mmol/L (0.7-2.0)
[2022-01-11 06:15] LABS: Alanine Aminotransferase 11 U/L (6-50); Alkaline Phosphatase 66 U/L (38-126); Anion Gap 8 mmol/L (8-16); Aspartate Amino Transferase 23 U/L (17-59); Bilirubin,Total 0.3 mg/dL (0.2-1.3); Blood Urea Nitrogen 60 mg/dL (9-20); Calcium 8.2 mg/dL (8.4-10.2); Carbon Dioxide 27 mmol/L (22-30); Chloride 107 mmol/L (98-107); Estimated CRCL calculation 13 ml/min; Estimated Glomerular Filt Rate 13; Glucose 72 mg/dL (65-110); Hemoglobin A1C 6.8 % (<5.7); Magnesium 2.1 mg/dL (1.6-2.3); Potassium 3.3 mmol/L (3.4-5.0); Sodium 142 mmol/L (137-145)
[2022-01-11 07:57] LABS: Iron 34 ug/dL (49-181)
[2022-01-11 08:06] LABS: Transferrin 116 mg/dL (206-381)
[2022-01-11 08:24] LABS: Percent Iron Saturation 18 % (20-50)
--- NOTE | 2022-01-11 08:30 | P.PNIM_ITS ---
Progress Note: A&P Assessment and Plan (1) Weakness: Code(s): R53.1 - Weakness Status: Acute Assessment and Plan: * Unknown etiology * Renal function noted to be worsening * Baseline appears all over the board, around 3.5 * PT/OT ordered * Covid negative (2) MICHELLE (acute kidney injury): Code(s): N17.9 - Acute kidney failure, unspecified Status: Acute Assessment and Plan: * BUN/Cr elevated at 60/4.60 * Baseline appears 3.50 * IV fluids continued decreased to 80ml/hr * Urine labs ordered * Hold diuretics for now; spironolactone 25mg PO daily, lasix 60mg PO Daily * Nephrology consulted * Renal ultrasound from Jun shows normal kidneys * UA is significant for proteins * Trend labs (3) Chronic kidney disease, stage 4 (severe): Code(s): N18.4 - Chronic kidney disease, stage 4 (severe) Status: Acute Assessment and Plan: * probably related to HTN and diabetes * See above (4) Atrial fibrillation: Code(s): I48.91 - Unspecified atrial fibrillation Status: Acute Assessment and Plan: * HX of ablation * HR is controlled * Continue carvedilol 25mg PO BID * Trend heart rate * Armani Vasc score is 4, benefit from anticoagulation * Continue Eliquis (5) Type 2 diabetes mellitus with diabetic cataract: Code(s): E11.36 - Type 2 diabetes mellitus with diabetic cataract Status: Acute Assessment and Plan: * Current glucose 72 * Accu-Cheks AC and HS * sliding scale insulin * Hold hole glimepiride while in the hospital * hypoglycemia protocol * Trend glucose * A1c in the am (6) Hypertensive chronic kidney disease with stage 1 through stage 4 chronic kidney disease, or unspecified chronic kidney disease: Code(s): I12.9 - Hypertensive chronic kidney disease with stage 1 through stage 4 chronic kidney disease, or unspecified chronic kidney disease Status: Acute Assessment and Plan: * Current BP is 150/51 * continue with Coreg 25mg PO BID, doxazosin 8mg PO HS, clonidine 0.1 PO daily, amlodipine 5mg PO daily * Trend blood pressure * adjust therapy as indicated (7) CHF (congestive heart failure): Code(s): I50.9 - Heart failure, unspecified Status: Acute Assessment and Plan: * Echo from 10/28/21 shows EF of 30% with left ventrical enlargement, with unknown diastolic dysfunction * Continue home carvedilol 25mg PO BID * Chronic combined systolic and diastolic heart failure * Trend urine output * trend daily weights * Trend labs * Careful with hydration, as we are holding diuretics for now (8) Anemia, chronic disease: Code(s): D63.8 - Anemia in other chronic diseases classified elsewhere Status: Acute Assessment and Plan: * Appears to be anemia of chronic disease * scheduled for Procrit injection this Thursday and receives them every 2 weeks * anemia labs iron 34, TIBC 186, % saturation 18, transferrin 116, ferritin 835, B12 906, folate greater than 20 * continue oral iron * patient has follow-up appointment with his lithographic photographer this coming up Thursday Time Spent With Patient Time with patient: Greater than 35 minutes Subjective Date/time seen: 01/11/22829 Interval history: 01/11/22829 Patient
--- NOTE | 2022-01-11 08:30 | PM.IMPN ---
Progress Note: A&P Assessment and Plan (1) Weakness: Code(s): R53.1 - Weakness Status: Acute Assessment and Plan: Unknown etiology Renal function noted to be worsening Baseline appears all over the board, around 3.5 PT/OT ordered Covid negative (2) MICHELLE (acute kidney injury): Code(s): N17.9 - Acute kidney failure, unspecified Status: Acute Assessment and Plan: BUN/Cr elevated at 60/4.60 Baseline appears 3.50 IV fluids continued decreased to 80ml/hr Urine labs ordered Hold diuretics for now; spironolactone 25mg PO daily, lasix 60mg PO Daily Nephrology consulted Renal ultrasound from Jun shows normal kidneys UA is significant for proteins Trend labs (3) Chronic kidney disease, stage 4 (severe): Code(s): N18.4 - Chronic kidney disease, stage 4 (severe) Status: Acute Assessment and Plan: probably related to HTN and diabetes See above (4) Atrial fibrillation: Code(s): I48.91 - Unspecified atrial fibrillation Status: Acute Assessment and Plan: HX of ablation HR is controlled Continue carvedilol 25mg PO BID Trend heart rate Armani Vasc score is 4, benefit from anticoagulation Continue Eliquis (5) Type 2 diabetes mellitus with diabetic cataract: Code(s): E11.36 - Type 2 diabetes mellitus with diabetic cataract Status: Acute Assessment and Plan: Current glucose 72 Accu-Cheks AC and HS sliding scale insulin Hold hole glimepiride while in the hospital hypoglycemia protocol Trend glucose A1c in the am (6) Hypertensive chronic kidney disease with stage 1 through stage 4 chronic kidney disease, or unspecified chronic kidney disease: Code(s): I12.9 - Hypertensive chronic kidney disease with stage 1 through stage 4 chronic kidney disease, or unspecified chronic kidney disease Status: Acute Assessment and Plan: Current BP is 150/51 continue with Coreg 25mg PO BID, doxazosin 8mg PO HS, clonidine 0.1 PO daily, amlodipine 5mg PO daily Trend blood pressure adjust therapy as indicated (7) CHF (congestive heart failure): Code(s): I50.9 - Heart failure, unspecified Status: Acute Assessment and Plan: Echo from 10/28/21 shows EF of 30% with left ventrical enlargement, with unknown diastolic dysfunction Continue home carvedilol 25mg PO BID Chronic combined systolic and diastolic heart failure Trend urine output trend daily weights Trend labs Careful with hydration, as we are holding diuretics for now (8) Anemia, chronic disease: Code(s): D63.8 - Anemia in other chronic diseases classified elsewhere Status: Acute Assessment and Plan: Appears to be anemia of chronic disease scheduled for Procrit injection this Thursday and receives them every 2 weeks anemia labs iron 34, TIBC 186, % saturation 18, transferrin 116, ferritin 835, B12 906, folate greater than 20 continue oral iron patient has follow-up appointment with his florist supplies salesperson this coming up Thursday Time Spent With Patient Time with patient: Greater than 35 minutes Subjective Date/time seen: 01/11/22829 Interval history: 01/11/22829 Patient is doing okay today. He stated that he still very weak. He denies any chest pain, shortness of breath, nausea, vomiting, diarrhea, constipation, fatigue however he did state that he gets cold easy. He did state that he urinates very little however he does feel like he fully empties. He also stated that he has coughed a couple times today however not as came up. Patient stated that he is due this Thursday for Procrit injection for his anemia. He also states he takes iron at home. He also stated that he does take Eliquis as well 5 mg b.i.d.. Urine function does look like it has been trending down. Will continue fluids at this time
[2022-01-11 08:55] LABS: Glucose Point of Care 83 mg/dl (65-105)
[2022-01-11 09:05] LABS: Folic Acid > 20.0 ng/mL (2.76->20)
[2022-01-11] MEDS: FERROUS SULFATE 324 MG TABLET PO ×2 (09:50→17:34)
[2022-01-11] MEDS: VITAMIN B CMPLX/VIT C/FOLIC AC 1 CAPSULE 1 CAP PO (09:50)
[2022-01-11] MEDS: GLIMEPIRIDE 2 MG TABLET PO (09:51)
[2022-01-11] MEDS: CHOLECALCIFEROL 1,000 UNITS TABLET 2000 UNITS PO ×2 (09:51→17:34)
[2022-01-11] MEDS: SODIUM CHLORIDE 0.9% IV 1,000 ML 80 ML IV CONT (10:36)
[2022-01-11 11:58] LABS: Creatinine Urine 60.2 mg/dL; Urea Random Urine 359 MG/DL
[2022-01-11 12:01] LABS: Sodium Urine Random 83 meq/L
--- NOTE | 2022-01-11 12:12 | PM.CNNEP ---
Assessment and Plan Assessment and plan (1) Chronic kidney disease (CKD), stage V: Code(s): N18.5 - Chronic kidney disease, stage 5 Status: Chronic Assessment and Plan: slow and steady progression of disease over the last few years follows with Dr. Dubois last creatinine in early December 2021 was 4.4mg/dl etiology of CKD due to HTN and DM along with an element of cardiorenal syndrome (EF ~ 30% with need for chronic diuretic therapy) aware that he will likely need CENTRIFUGAL OPERATOR/dialysis in the near future no urgent need for CENTRIFUGAL OPERATOR/dialysis at this time (2) Weakness: Code(s): R53.1 - Weakness Status: Acute Assessment and Plan: etology not entirely clear suspect a component of progressive kidney disease is playing a role his anemia may be as well but already on appropriate therapy (see #3) possible over-diuresis? follow trend of symptoms (3) Anemia, chronic disease: Code(s): D63.8 - Anemia in other chronic diseases classified elsewhere Status: Acute Assessment and Plan: due to CKD receiving outpatient Epogen therapy H/H close to goal follow trend of H/H (4) Chronic systolic (congestive) heart failure: Code(s): I50.22 - Chronic systolic (congestive) heart failure Status: Chronic Assessment and Plan: last Echo with EF ~ 30% appears compensated at this time follow volume closely with IVF hydration (since diuretics on hold) (5) Hypertension: Code(s): I10 - Essential (primary) hypertension Status: Chronic Assessment and Plan: reasonable control at this time follow trend of hemodynamics (6) Type 2 diabetes mellitus with diabetic chronic kidney disease: Code(s): E11.22 - Type 2 diabetes mellitus with diabetic chronic kidney disease Status: Chronic Assessment and Plan: follow accuchecks glycemic control Long and extensive discussion (> 20 minutes) with patient regarding his porgressive renal disease and eventual need for CENTRIFUGAL OPERATOR/dialysis. He is already aware of this and has attended renal education class regarding dialysis treatment options ([facility], [facility], home HD...etc) but he is undecided about what he wants to do. Will continue to follow. History of Present Illness Reason for Consult Consult date: 01/11/22 Reason for consult: chronic renal failure Chief Complaint Chief complaint: MICHELLE on CKD/ Weakness History of Present Illness Narrative: The patient is a 76-year-old male with extensive past medical history as outlined below who presented to [facility] margins room with complaints of generalized weakness. He states that the generalized weakness seems to been progressively getting worse and more severe particularly in the last few days. He cannot give any other symptoms associated with a generalized weakness although he does report he does have chronic kidney disease which she is wearing aware of and anemia associated with this problem but he is already receiving Epogen therapy by Hematology. He gives no symptoms of chest pain, shortness of breath, nausea, vomiting, diarrhea, fevers, chills, abdominal pain, syncope, or palpitations. He states he has been eating and drinking reasonably well also. Nonetheless, given the progression of his symptoms, he came to the ER for further evaluation Workup and evaluation in the emergency room demonstrated patient for was hemodynamically stable and in no acute distress. Routine blood test were consistent with his known history of chronic kidney disease as hemoglobin and hematocrit were low but relatively stable for a patient with advanced kidney disease. He had no critical electrolyte abnormalities on his chemistry either. He is on diuretic therapy for his known history of congestive heart failure and there was some concern perhaps maybe with regard to volume depletion and/or over-diuresis. He was started on gentle IV fluid hydration and subsequent
--- NOTE | 2022-01-11 12:12 | P.CONNP_ITS ---
Assessment and Plan Assessment and plan (1) Chronic kidney disease (CKD), stage V: Code(s): N18.5 - Chronic kidney disease, stage 5 Status: Chronic Assessment and Plan: * slow and steady progression of disease over the last few years * follows with Dr. Dubois * last creatinine in early December 2021 was 4.4mg/dl * etiology of CKD due to HTN and DM along with an element of cardiorenal syndrome (EF ~ 30% with need for chronic diuretic therapy) * aware that he will likely need WOODS SUPERINTENDENT/dialysis in the near future * no urgent need for WOODS SUPERINTENDENT/dialysis at this time (2) Weakness: Code(s): R53.1 - Weakness Status: Acute Assessment and Plan: * etology not entirely clear * suspect a component of progressive kidney disease is playing a role * his anemia may be as well but already on appropriate therapy (see #3) * possible over-diuresis? * follow trend of symptoms (3) Anemia, chronic disease: Code(s): D63.8 - Anemia in other chronic diseases classified elsewhere Status: Acute Assessment and Plan: * due to CKD * receiving outpatient Epogen therapy * H/H close to goal * follow trend of H/H (4) Chronic systolic (congestive) heart failure: Code(s): I50.22 - Chronic systolic (congestive) heart failure Status: Chronic Assessment and Plan: * last Echo with EF ~ 30% * appears compensated at this time * follow volume closely with IVF hydration (since diuretics on hold) (5) Hypertension: Code(s): I10 - Essential (primary) hypertension Status: Chronic Assessment and Plan: * reasonable control at this time * follow trend of hemodynamics (6) Type 2 diabetes mellitus with diabetic chronic kidney disease: Code(s): E11.22 - Type 2 diabetes mellitus with diabetic chronic kidney disease Status: Chronic Assessment and Plan: * follow accuchecks * glycemic control Long and extensive discussion (> 20 minutes) with patient regarding his porgressive renal disease and eventual need for WOODS SUPERINTENDENT/dialysis. He is already aware of this and has attended renal education class regarding dialysis treatment options ([facility], PD, home HD...etc) but he is undecided about what he wants to do. Will continue to follow. History of Present Illness Reason for Consult Consult date: 01/11/22 Reason for consult: chronic renal failure Chief Complaint Chief complaint: MICHELLE on CKD/ Weakness History of Present Illness Narrative: The patient is a 76-year-old male with extensive past medical history as outlined below who presented to [facility] margins room with complaints of generalized weakness. He states that the generalized weakness seems to been progressively getting worse and more severe particularly in the last few days. He cannot give any other symptoms associated with a generalized weakness although he does report he does have chronic kidney disease which she is wearing aware of and anemia associated with this problem but he is already receiving Epogen therapy by Hematology. He gives no symptoms of chest pain, shortness of breath, nausea, vomiting, diarrhea, fevers, chills, abdominal pain, syncope, or palpitations. He states he has been eating and drinking reasonably well also. Nonetheless, given the progression of his symptoms, he came to the ER for further evaluation Workup and evaluation in the emergency room demonstrated patient for was hem odynamically stable and in no acute distress. Routine blood test were consistent with his known history of chronic kidney disease as hemoglobin
[2022-01-11 12:29] LABS: Glucose Point of Care 286 mg/dl (65-105)
[2022-01-11 12:43] LABS: Glucose Point of Care 351 mg/dl (65-105)
[2022-01-11] MEDS: INSULIN ASPART (*BKC) 100 UNITS/ML SUB-Q (12:59)
[2022-01-11 17:46] LABS: Glucose Point of Care 90 mg/dl (65-105)
[2022-01-11 19:52] LABS: Glucose Point of Care 141 mg/dl (65-105)
[2022-01-11] MEDS: carvediloL 25 MG TABLET PO (20:28)
[2022-01-11] MEDS: APIXABAN 5 MG TABLET PO (20:29)
[2022-01-11] MEDS: DOXAZOSIN MESYLATE 4 MG TABLET 8 MG PO (20:29)
[2022-01-12] VITALS (7 sets, daily range): BP systolic 109–154; BP diastolic 35–41; PULSE 54–64; RESP 17; TEMP 36.4; O2SAT 100
[2022-01-12] MEDS: SODIUM CHLORIDE 0.9% IV 1,000 ML 80 ML IV CONT (03:00)
[2022-01-12 05:16] LABS: Basophils Percent Auto 0.4 % (0.2-1.2); Eosinophils Absolute Auto 0.4 K/mm3 (0-0.3); Eosinophils Percent Auto 6.1 % (0-4.4); Hematocrit 31.5 % (42.0-52.0); Hemoglobin 9.8 g/dL (14.0-18.0); Immature Granulocyte Absolute 0.02 K/mm3 (0.00-0.031); Immature Granulocyte Percent A 0.3 % (0-0.5); Lymphocytes Absolute Auto 1.05 K/mm3 (0.9-3.2); Lymphocytes Percent Auto 15.6 % (18.3-44.2); Mean Corpuscular HGB Conc 31.1 g/dl (32-36); Mean Corpuscular Hemoglobin 28.9 pg (26-34); Mean Corpuscular Volume 92.9 fl (80-100); Mean Platelet Volume 9.5 fl (7.4-10.4); Monocytes Absolute Auto 0.7 K/mm3 (0.1-0.6); Monocytes Percent Auto 10.8 % (2.6-8.5); Neutrophils Absolute Auto 4.5 K/mm3 (1.3-6.7); Neutrophils Percent Auto 66.8 % (45.5-73.1); Platelet Count Result 152 k/mm3 (150-375); Red Blood Count 3.39 M/mm3 (4.6-6.20); Red Cell Distribution Width 16.1 % (11.5-14.5); White Blood Count 6.7 K/mm3 (4.5-10.0)
[2022-01-12 05:21] LABS: Alanine Aminotransferase 11 U/L (6-50); Albumin Level 2.8 g/dL (3.5-5.1); Alkaline Phosphatase 69 U/L (38-126); Anion Gap 7 mmol/L (8-16); Aspartate Amino Transferase 20 U/L (17-59); Bilirubin,Total 0.2 mg/dL (0.2-1.3); Blood Urea Nitrogen 58 mg/dL (9-20); Calcium 7.9 mg/dL (8.4-10.2); Carbon Dioxide 26 mmol/L (22-30); Chloride 108 mmol/L (98-107); Estimated CRCL calculation 14 ml/min; Estimated Glomerular Filt Rate 13; Glucose 134 mg/dL (65-110); Potassium 3.4 mmol/L (3.4-5.0); Sodium 141 mmol/L (137-145)
[2022-01-12 07:57] LABS: Glucose Point of Care 110 mg/dl (65-105)
[2022-01-12] MEDS: FUROSEMIDE 20 MG TABLET 60 MG PO (09:35)
[2022-01-12] MEDS: SPIRONOLACTONE 25 MG TABLET PO (09:35)
[2022-01-12] MEDS: VITAMIN B CMPLX/VIT C/FOLIC AC 1 CAPSULE 1 CAP PO (09:35)
[2022-01-12] MEDS: CHOLECALCIFEROL 1,000 UNITS TABLET 2000 UNITS PO (09:35)
[2022-01-12] MEDS: APIXABAN 5 MG TABLET PO (09:36)
[2022-01-12] MEDS: FERROUS SULFATE 324 MG TABLET PO (09:36)
[2022-01-12] MEDS: GLIMEPIRIDE 2 MG TABLET PO (09:36)
[2022-01-12] MEDS: carvediloL 25 MG TABLET PO (09:36)
--- NOTE | 2022-01-12 10:15 | P.DS_ITS ---
DS: Admitting Diagnosis Discharge Date 01/12/22 1015 Admitting Diagnosis Orthostatic Hypotension DS: Discharge Diagnosis Discharge Diagnosis (1) Weakness: Code(s): R53.1 - Weakness Status: Acute Assessment and Plan: * Unknown etiology * Renal function noted to be worsening * Baseline appears all over the board, around 3.5 * PT/OT ordered * Covid negative * Appears to be related to BP (2) MICHELLE (acute kidney injury): Code(s): N17.9 - Acute kidney failure, unspecified Status: Acute Assessment and Plan: * BUN/Cr elevated at 58/4.40 * Baseline appears 3.50 * IV fluids continued decreased to 80ml/hr * Urine labs ordered * Hold diuretics for now; spironolactone 25mg PO daily, lasix 60mg PO Daily * Nephrology consulted * Renal ultrasound from Jun shows normal kidneys * UA is significant for proteins * Trend labs Discussed with Dr. Mckeon who stated creatinine in October was 4.2 (3) Chronic kidney disease, stage 4 (severe): Code(s): N18.4 - Chronic kidney disease, stage 4 (severe) Status: Acute Assessment and Plan: * probably related to HTN and diabetes * See above (4) Atrial fibrillation: Code(s): I48.91 - Unspecified atrial fibrillation Status: Acute Assessment and Plan: * HX of ablation * HR is controlled * Continue carvedilol 25mg PO BID * Trend heart rate * Armani Vasc score is 4, benefit from anticoagulation * Continue Eliquis (5) Type 2 diabetes mellitus with diabetic cataract: Code(s): E11.36 - Type 2 diabetes mellitus with diabetic cataract Status: Acute Assessment and Plan: * Current glucose 134 * Accu-Cheks AC and HS * sliding scale insulin * Hold hole glimepiride while in the hospital * hypoglycemia protocol * Trend glucose * A1c in the am (6) Hypertensive chronic kidney disease with stage 1 through stage 4 chronic kidney disease, or unspecified chronic kidney disease: Code(s): I12.9 - Hypertensive chronic kidney disease with stage 1 through stage 4 chronic kidney disease, or unspecified chronic kidney disease Status: Acute Assessment and Plan: * Current BP is 109/40 * continue with Coreg 25mg PO BID, doxazosin 8mg PO HS, clonidine 0.1 PO daily, amlodipine 5mg PO daily * Trend blood pressure * adjust therapy as indicated (7) CHF (congestive heart failure): Code(s): I50.9 - Heart failure, unspecified Status: Acute Assessment and Plan: * Echo from 10/28/21 shows EF of 30% with left ventrical enlargement, with unknown diastolic dysfunction * Continue home carvedilol 25mg PO BID * Chronic combined systolic and diastolic heart failure * Trend urine output * trend daily weights * Trend labs * Careful with hydration, as we are holding diuretics for now (8) Anemia, chronic disease: Code(s): D63.8 - Anemia in other chronic diseases classified elsewhere Status: Acute Assessment and Plan: * Appears to be anemia of chronic disease * scheduled for Procrit injection this Thursday and receives them every 2 weeks * anemia labs iron 34, TIBC 186, % saturation 18, transferrin 116, ferritin 835, B12 906, folate greater than 20 * continue oral iron * patient has follow-up appointment with his taxicab dispatcher this coming up Thursday
--- NOTE | 2022-01-12 10:15 | PM.DS ---
DS: Admitting Diagnosis Discharge Date 01/12/22 1015 Admitting Diagnosis Orthostatic Hypotension DS: Discharge Diagnosis Discharge Diagnosis (1) Weakness: Code(s): R53.1 - Weakness Status: Acute Assessment and Plan: Unknown etiology Renal function noted to be worsening Baseline appears all over the board, around 3.5 PT/OT ordered Covid negative Appears to be related to BP (2) MICHELLE (acute kidney injury): Code(s): N17.9 - Acute kidney failure, unspecified Status: Acute Assessment and Plan: BUN/Cr elevated at 58/4.40 Baseline appears 3.50 IV fluids continued decreased to 80ml/hr Urine labs ordered Hold diuretics for now; spironolactone 25mg PO daily, lasix 60mg PO Daily Nephrology consulted Renal ultrasound from Jun shows normal kidneys UA is significant for proteins Trend labs Discussed with Dr. Mckeon who stated creatinine in October was 4.2 (3) Chronic kidney disease, stage 4 (severe): Code(s): N18.4 - Chronic kidney disease, stage 4 (severe) Status: Acute Assessment and Plan: probably related to HTN and diabetes See above (4) Atrial fibrillation: Code(s): I48.91 - Unspecified atrial fibrillation Status: Acute Assessment and Plan: HX of ablation HR is controlled Continue carvedilol 25mg PO BID Trend heart rate Armani Vasc score is 4, benefit from anticoagulation Continue Eliquis (5) Type 2 diabetes mellitus with diabetic cataract: Code(s): E11.36 - Type 2 diabetes mellitus with diabetic cataract Status: Acute Assessment and Plan: Current glucose 134 Accu-Cheks AC and HS sliding scale insulin Hold hole glimepiride while in the hospital hypoglycemia protocol Trend glucose A1c in the am (6) Hypertensive chronic kidney disease with stage 1 through stage 4 chronic kidney disease, or unspecified chronic kidney disease: Code(s): I12.9 - Hypertensive chronic kidney disease with stage 1 through stage 4 chronic kidney disease, or unspecified chronic kidney disease Status: Acute Assessment and Plan: Current BP is 109/40 continue with Coreg 25mg PO BID, doxazosin 8mg PO HS, clonidine 0.1 PO daily, amlodipine 5mg PO daily Trend blood pressure adjust therapy as indicated (7) CHF (congestive heart failure): Code(s): I50.9 - Heart failure, unspecified Status: Acute Assessment and Plan: Echo from 10/28/21 shows EF of 30% with left ventrical enlargement, with unknown diastolic dysfunction Continue home carvedilol 25mg PO BID Chronic combined systolic and diastolic heart failure Trend urine output trend daily weights Trend labs Careful with hydration, as we are holding diuretics for now (8) Anemia, chronic disease: Code(s): D63.8 - Anemia in other chronic diseases classified elsewhere Status: Acute Assessment and Plan: Appears to be anemia of chronic disease scheduled for Procrit injection this Thursday and receives them every 2 weeks anemia labs iron 34, TIBC 186, % saturation 18, transferrin 116, ferritin 835, B12 906, folate greater than 20 continue oral iron patient has follow-up appointment with his gravity prospecting operator this coming up Thursday (9) Orthostatic hypotension: Code(s): I95.1 - Orthostatic hypotension Status: Acute Assessment and Plan: Orthostatic blood pressure appear to be 134/55 laying, 134/68 sitting, 104/88 standing Currently on amlodipine, carvedilol, and clonidine He also is on diuretics at home Hold clonidine, restart furosemide and spironolactone since he is about at his baseline Educate about slow movements and position changes He will need to take his blood pressure in the am and pm, report to his PCP for further instructions DS: Summary Hospital Course Hospital Course:
[2022-01-12] MEDS: AMIODARONE HCL 200 MG TABLET PO (10:38)
--- NOTE | 2022-01-12 11:01 | PC.NURSE ---
Pt ambulated in [place] with gait belt and cane. He ambulated 125 feet in the [place], climbed four stairs up and back down. Pt c/o weakness in legs & pallor. He sat in the chair in the [place] before returning to his room by wheelchair.
[2022-01-14 06:52] LABS: Osmolality, Urine 338 mOsm/kg (50-1200)
== END 2022-01-12 11:40 | disposition home or self-care (01) ==
LOC: ANHED 13:31 → ANH2MED 01-12 07:15
PROVIDERS: Emergency Medicine; Nurse Practitioner; Admitting Provider Internal Medicine; Emergency Provider Emergency Medicine; PCP Family Medicine Adolescent Medicine; Visit Provider Nurse Practitioner
DX: R53.1 Weakness (principal); N17.9 Acute kidney failure, unspecified; E11.22 Type 2 diabetes mellitus with diabetic chronic kidney disease; I13.2 Hypertensive heart and chronic kidney disease with heart failure and with stage 5 chronic kidney disease, or end stage renal disease; N18.5 Chronic kidney disease, stage 5; I50.42 Chronic combined systolic (congestive) and diastolic (congestive) heart failure; D63.1 Anemia in chronic kidney disease; E11.36 Type 2 diabetes mellitus with diabetic cataract; I95.1 Orthostatic hypotension; I48.91 Unspecified atrial fibrillation; N20.0 Calculus of kidney; R00.1 Bradycardia, unspecified; J32.8 Other chronic sinusitis; R53.83 Other fatigue; E78.5 Hyperlipidemia, unspecified; M35.3 Polymyalgia rheumatica; Z20.822 Contact with and (suspected) exposure to COVID-19; Z85.46 Personal history of malignant neoplasm of prostate; Z87.01 Personal history of pneumonia (recurrent); Z86.16 Personal history of COVID-19; Z79.899 Other long term (current) drug therapy; Z82.49 Family history of ischemic heart disease and other diseases of the circulatory system; Z82.5 Family history of asthma and other chronic lower respiratory diseases; Z80.7 Family history of other malignant neoplasms of lymphoid, hematopoietic and related tissues; Z80.42 Family history of malignant neoplasm of prostate
CPT/HCPCS: 36415; 71045; 76775; 80053; 81001; 82570; 82607; 82728; 82746; 82948; 83036; 83540; 83550; 83605; 83735; 83935; 84300; 84443; 84466; 84540; 85025; 86850; 86900; 86901; 93005; 96360; 96361; 97161; 97165; 99285; A9270; C9803; G0378; J1815; J7030; U0003; U0005

== ENCOUNTER 2022-05-23 09:49 | Outpatient (CLI) | payer MEDICARE, MEDICAID, SELFPAY ==
[2022-05-23 10:50] LABS: Anion Gap 11 mmol/L (8-16); Calcium 7.6 mg/dL (8.4-10.2); Carbon Dioxide 25 mmol/L (22-30); Chloride 96 mmol/L (98-107); Estimated Glomerular Filt Rate 5; Glucose 200 mg/dL (65-110); Potassium 4.9 mmol/L (3.4-5.0); Sodium 132 mmol/L (137-145)
[2022-05-23 11:02] LABS: Blood Urea Nitrogen 128 mg/dL (9-20)
== END 2022-05-23 09:50 | disposition home or self-care (01) ==
PROVIDERS: PCP Family Medicine Adolescent Medicine; Visit Provider Nurse Practitioner Adult Health
DX: E87.5 Hyperkalemia (principal)
CPT/HCPCS: 36415; 80048

== ENCOUNTER 2022-05-29 16:20 | Outpatient (CLI) | payer MEDICARE, MEDICAID, SELFPAY ==
[2022-05-29 19:34] LABS: Hepatitis B Surface Antigen Negative (Negative)
[2022-05-29 19:52] LABS: Hepatitis B Surface Anti Res Negative
[2022-06-01 19:32] LABS: Hepatitis B Core Ab Total Nonreactive (Nonreactive)
== END 2022-05-29 16:21 | disposition home or self-care (01) ==
LOC: ANHLAB 16:23
PROVIDERS: PCP Family Medicine Adolescent Medicine; Visit Provider Nurse Practitioner Family
DX: N18.6 End stage renal disease (principal)
CPT/HCPCS: 36415; 86704; 86706; 87340

== ENCOUNTER 2022-07-31 17:51 | Observation (INO) | payer MEDICARE, MEDICAID, SELFPAY ==
--- NOTE | ~2022-07-31 | XR_ITS ---
XR chest 2V 07/31/2022 19:09 Indication: Weakness. Fall. CHF. Procedure: 2 view chest Comparison: Comparison to multiple prior studies sequentially, with oldest reviewed study dated 10/19. Findings: Cardiomegaly. No focal air space disease, pulmonary edema, pleural effusion or suspected pn eumothorax. There is atherosclerosis. Impression: 1: No acute cardiopulmonary disease. Reviewed, dictated and finalized at location A. Impression: 1: No acute cardiopulmonary disease.
[2022-07-31 18:04] VITALS: BP 207/48; PULSE 69; RESP 16; TEMP 37.6; O2SAT 96
--- NOTE | 2022-07-31 18:35 | ECG_ITS ---
Measurements Intervals [place] Rate: 70 P: 83 CT: 208 QRS: -42 QRSD: 125 T: 107 QT: 393 QTc: 427 Interpretive Statements SINUS RHYTHM LEFT AXIS DEVIATION INTRAVENTRICULAR CONDUCTION DELAY DELAYED PRECORDIAL R/S TRANSITION LEFT VENTRICULAR HYPERTROPHY AND ST-T CHANGE BORDERLINE ECG COMPARED TO ECG 01/10/2022 11:58:22 SINUS RHYTHM NOW PRESENT LEFT VENTRICULAR HYPERTROPHY NOW PRESENT Electronically Signed On 07-31-2022 21:24:12 CDT by Wilfredo Hernández D.O.
--- NOTE | 2022-07-31 19:05 | ED.GENADULT ---
HPI - General Adult General Chief complaint: Weakness Stated complaint: weakness, N/V Time Seen by Provider: 07/31/22 17:51 History of Present Illness HPI narrative: Patient is a 76-year-old male who presents ER with reports of weakness. Was getting up to walk to dinner when he just felt weak and fell onto his buttock at home. Not strike his head or lose consciousness. Denies fevers or chills or sweats. Reports he has been having nausea and vomiting throughout the day and has tried emesis on his chin. Oriented x3. No urinary symptoms. Negative cough or cold. Related Data Home Medications Medication Instructions Recorded Confirmed cholecalciferol (vitamin D3) 50 50 mcg PO BID 01/10/22 01/21/22 mcg (2,000 unit) tablet ferrous sulfate 325 mg (65 mg 325 mg PO BID 01/10/22 01/21/22 iron) tablet (Iron (ferrous sulfate)) apixaban 5 mg tablet (Eliquis) 5 mg PO BID 01/11/22 01/21/22 amiodarone 200 mg tablet 200 mg PO DAILY 01/12/22 01/21/22 calcitriol 0.25 mcg capsule 0.25 mcg PO 3XW 05/07/22 hydralazine 50 mg tablet 50 mg PO TID 05/07/22 05/07/22 isosorbide mononitrate 30 mg 30 mg PO DAILY 05/07/22 05/07/22 tablet,extended release 24 hr Allergies Allergy/AdvReac Type Severity Reaction Status Date / Time sitagliptin [From Mayuv] Allergy Rash Verified 05/07/22 08:02 Sulfa (Sulfonamide Allergy Unknown Verified 05/07/22 08:02 Antibiotics) Review of Systems Review of Systems: All systems reviewed & are unremarkable except as noted in HPI and below Constitutional: Constitutional: Denies chills, Reports fatigue, Denies fever(s) and Reports weakness ENT: Denies nasal congestion and Denies sore throat Cardiovascular: Cardiovascular: Denies chest pain, Denies rapid heart rate and Denies radiating jaw, neck or arm pain Respiratory: Respiratory: Denies cough and Denies dyspnea Gastrointestinal: Gastrointestinal: Denies abdominal pain, Denies nausea and Denies vomiting Neurologic: Denies syncope, Denies headache(s), Denies focal weakness and Denies numbness PMFSH Past Medical History Medical History Allergic rhinitis Anemia of chronic disease Chronic kidney disease Chronic sinusitis 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 Abnormal some on the left hand COVID-19 5/20 COVID-19 Eczema History of prostate cancer Hyperlipidemia Pneumonia due to COVID-19 virus Polymyalgia rheumatica Ulcer Weakness Surgical History Surgical History Status post cataract extraction of both eyes with insertion of intraocular lens Family History Family History Father Lung cancer Daughter Chronic lung disease Morbid obesity Grandparent Asthma Mother Hypertension Other Diabetes mellitus Heart disease Malignant neoplasm of prostate Social History Social History Social History: 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 The patient is and lives with his is the durable power state attorney for healthcare. He is a lifelong nonsmoker. He did chew tobacco . Primary care physician: Dr. Srikanth Danielson Code status: Full code Smoking status: Never smoker Smokeless tobacco user: chewing tobacco Second hand tobacco smoke exposure: No Alcohol intake: never Alcohol use details: The patient only rarely drink and only in moderation but quit drinking in 1975 when he found [facility]. Substance use: never Substance use type: does not use Living arrangements: with family Additional living arrangements comments: He lives in [place] with his of 46 years. He has total of 6 children 5 of which are still living and her relatively healthy. He had 1 daughter who of morbid obesity and chronic lung disease. He
[2022-07-31 19:14] LABS: Basophils Percent Auto 0.5 % (0.2-1.2); Eosinophils Absolute Auto 0.2 K/mm3 (0-0.3); Eosinophils Percent Auto 2.9 % (0-4.4); Hematocrit 35.4 % (42.0-52.0); Hemoglobin 10.8 g/dL (14.0-18.0); Immature Granulocyte Absolute 0.04 K/mm3 (0.00-0.031); Immature Granulocyte Percent A 0.5 % (0-0.5); Immature Platelet Fraction Pct 2.1 % (0.9-11.2); Lymphocytes Absolute Auto 0.25 K/mm3 (0.9-3.2); Lymphocytes Percent Auto 3.2 % (18.3-44.2); Mean Corpuscular HGB Conc 30.5 g/dl (32-36); Mean Corpuscular Hemoglobin 30.4 pg (26-34); Mean Corpuscular Volume 99.7 fl (80-100); Mean Platelet Volume 9.8 fl (7.4-10.4); Monocytes Absolute Auto 0.8 K/mm3 (0.1-0.6); Monocytes Percent Auto 9.7 % (2.6-8.5); Neutrophils Absolute Auto 6.6 K/mm3 (1.3-6.7); Neutrophils Percent Auto 83.2 % (45.5-73.1); Platelet Count Result 79 k/mm3 (150-375); Red Blood Count 3.55 M/mm3 (4.6-6.20); White Blood Count 7.9 K/mm3 (4.5-10.0)
[2022-07-31 19:26] LABS: Alanine Aminotransferase 20 U/L (6-50); Albumin Level 3.8 g/dL (3.5-5.1); Alkaline Phosphatase 92 U/L (38-126); Anion Gap 5 mmol/L (8-16); Aspartate Amino Transferase 26 U/L (17-59); Bilirubin,Total 0.5 mg/dL (0.2-1.3); Blood Urea Nitrogen 58 mg/dL (9-20); Calcium 8.9 mg/dL (8.4-10.2); Carbon Dioxide 34 mmol/L (22-30); Chloride 94 mmol/L (98-107); Estimated CRCL calculation 17 ml/min; Estimated Glomerular Filt Rate 14; Glucose 142 mg/dL (65-110); Potassium 4.8 mmol/L (3.4-5.0); Sodium 133 mmol/L (137-145)
[2022-07-31 19:44] LABS: Platelet Estimate Decreased (Adequate)
[2022-07-31 19:45] LABS: Schistocytes None Seen (NORMAL); Stomatocytes 1+ (NORMAL)
[2022-07-31 19:51] LABS: Influenza A QL RT-PCR Negative (Negative); Influenza B QL RT-PCR Negative (Negative); SARS-CoV-2 RNA PCR Positive
[2022-07-31 20:01] VITALS: PULSE 71
[2022-07-31] MEDS: SODIUM CHLORIDE 0.9% IV 500 ML 999 ML IV CONT (20:01)
[2022-07-31] MEDS: ACETAMINOPHEN 500 MG TABLET 1000 MG PO (20:01)
[2022-07-31] MEDS: carvediloL 12.5 MG TABLET PO (20:01)
[2022-07-31 23:00] VITALS: BP 146/46; PULSE 59; RESP 16; O2SAT 99
[2022-08-01] VITALS (19 sets, daily range): BP systolic 103–223; BP diastolic 41–80; PULSE 55–78; RESP 16–21; TEMP 36.2–37.3; O2SAT 92–100; BMI 31.8; BMI 24.1
--- NOTE | 2022-08-01 00:25 | ADMGEN ---
This patient, Abel Pike, was admitted to Medical Room 344-01. Patient/family oriented to hospital policies and general routines including ID bracelet, bed and alarms, visiting hours, pain management, procedures, bathroom and other care routines, personal items, smoking policy, room service/diet, and visiting hours. Information on how to activate the Rapid Response Team has been discussed. Patient/Family are encouraged to report perceived risks to care and to ask questions if they do not understand what they are told or what they should do.
--- NOTE | 2022-08-01 07:28 | PM.IMHP ---
H&P: HPI History of Present Illness Date/Time: 08/01/22 06:15 Chief Complaint: Weakness Narrative: 76-year-old male with past medical history of end-stage renal disease recently started hemodialysis, essential hypertension, type 2 diabetes mellitus who presented to the ER via EMS with increasing weakness. The patient reports that he has been on hemodialysis for about a month. He has been weaker than usual since he started on hemodialysis. However over the last week he has also developed a nonproductive cough with occasional chills. He denies any shortness of breath. But he has become significantly more weak and had a fall on the . He did not hit his head or lose consciousness. He denied having any nausea or vomiting to me but had evidently been having an episode of vomiting when EMS arrived to the patient's home. EMS gave the patient 4 mg of Zofran. The patient reported been having a good appetite and is been unchanged from baseline. He does admit to having occasional black tardy stools but he has not had any recently. He denies any chest pain or shortness of breath. He does snore in sleeps in a recliner. He reports that he is only urinating a small amount once or twice a day. He denies any dysuria or hematuria. He denies having any known fevers. When arrived to the ER his temperature was 99.7?. The patient reports that he has been having coughing for about a week. Cough is mostly nonproductive. He reports that the cough is not much at all. However at the time of my evaluation the patient was coughing quite frequently. Review of Systems Review of Systems: 12 systems were reviewed with pertinent positives and negatives per HPI. Except as documented in the HPI, all other systems were reviewed and are negative. [facility] Past Medical History Medical History (Updated 08/01/22 @ 07:42 by Rebecca Marcelino DO) Allergic rhinitis Anemia of chronic disease Atrial fibrillation cardoversion 12/27/21 Chronic sinusitis Combined systolic and diastolic congestive heart failure Echocardiogram 10/2021: Mild concentric left ventricular hypertrophy, moderate left ventricular enlargement, moderate global left ventricular systolic dysfunction with EF of 30%, diastolic dysfunction, severe left atrial enlargement, mild right atrial enlargement, mild aortic valve regurgitation, moderate pulmonary hypertension with RVSP of 53, moderate tricuspid regurgitation 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 Dubois History of prostate cancer Hyperlipidemia Orthostatic hypotension Pneumonia due to COVID-19 virus Polymyalgia rheumatica Presbycusis, bilateral Pulmonary hypertension Secondary hyperparathyroidism of renal origin Ulcer Surgical History Surgical History (Updated 08/01/22 @ 07:42 by Rebecca Marcelino DO) Status post cataract extraction of both eyes with insertion of intraocular lens Status post creation of arteriovenous fistula Left upper arm Family History Family History Father Lung cancer Daughter Chronic lung disease Morbid obesity Grandparent Asthma Mother Hypertension Other Diabetes mellitus Heart disease Malignant neoplasm of prostate Social History Social History (Updated 08/01/22 @ 07:46 by Rebecca Marcelino DO) Social History: The patient is and lives with his of 47 years. He is a lifelong nonsmoker. He did chew tobacco. Primary care physician: Dr. Srikanth Danielson Code status: Full code Surrogate decision maker: Smoking status: Never smoker Smokeless tobacco user: chewing tobacco Second hand tobacco smoke exposure: No Alcohol intake: former Alcohol use details: He reports that he drank heavily un
[2022-08-01 08:35] LABS: Glucose Point of Care 84 mg/dl (65-105)
[2022-08-01 08:49] LABS: Anion Gap 5 mmol/L (8-16); Blood Urea Nitrogen 62 mg/dL (9-20); Calcium 8.4 mg/dL (8.4-10.2); Carbon Dioxide 33 mmol/L (22-30); Chloride 100 mmol/L (98-107); Estimated CRCL calculation 10 ml/min; Estimated Glomerular Filt Rate 11; Glucose 79 mg/dL (65-110); Potassium 4.6 mmol/L (3.4-5.0); Sodium 138 mmol/L (137-145)
[2022-08-01 08:53] LABS: Hemoglobin 9.8 g/dL (14.0-18.0); Immature Platelet Fraction Pct 1.6 % (0.9-11.2); Mean Corpuscular HGB Conc 30.6 g/dl (32-36); Mean Corpuscular Hemoglobin 31.2 pg (26-34); Mean Corpuscular Volume 101.9 fl (80-100); Mean Platelet Volume 9.3 fl (7.4-10.4); Platelet Count Result 93 k/mm3 (150-375); Red Blood Count 3.14 M/mm3 (4.6-6.20); Red Cell Distribution Width 16.3 % (11.5-14.5); White Blood Count 6.1 K/mm3 (4.5-10.0)
[2022-08-01] MEDS: CHOLECALCIFEROL 1,000 UNITS TABLET 2000 UNITS PO (09:48)
[2022-08-01] MEDS: APIXABAN 5 MG TABLET PO (09:49)
[2022-08-01] MEDS: VITAMIN B CMPLX/VIT C/FOLIC AC 1 CAPSULE 1 CAP PO (09:49)
[2022-08-01] MEDS: FERROUS SULFATE 324 MG TABLET PO (09:49)
[2022-08-01] MEDS: FUROSEMIDE 40 MG TABLET PO (09:49)
[2022-08-01 12:32] LABS: Glucose Point of Care 113 mg/dl (65-105)
[2022-08-01 13:49] LABS: Hepatitis B Surface Antigen Negative (Negative)
[2022-08-01 14:07] LABS: Hepatitis B Surface Anti Res Indeterminate
--- NOTE | 2022-08-01 14:58 | PM.IMPN ---
Progress Note: A&P Assessment and Plan (1) Generalized weakness: Code(s): R53.1 - Weakness Status: Acute Assessment and Plan: acute on chronic worsening of weakness likely secondary to acute viral illness appreciate PT/OT evals out of bed for meals implement fall precautions (2) COVID: Code(s): U07.1 - COVID-19 Status: Acute Assessment and Plan: COVID PCR positive on 07/31/2022 patient has no supplemental oxygen requirement, therefore no indication for steroids antivirals. if patient does become hypoxic, antivirals are contraindicated due to his ESRD supportive care continue isolation precautions patient reports completion of COVID vaccine and booster (3) End-stage renal disease on hemodialysis: Code(s): N18.6 - End stage renal disease; Z99.2 - Dependence on renal dialysis Status: Acute Assessment and Plan: maintained on hemodialysis on Thursday, Thursday, Thursday hemodialysis today appreciate nephrology consultation for management of dialysis (4) Hypertension: Code(s): I10 - Essential (primary) hypertension Status: Chronic Assessment and Plan: blood pressure is markedly elevated in the ED at 207/48 with normalization following resuming home antihypertensives. last BP 150/50 continue home carvedilol and furosemide history of orthostatic hypotension noted, continue to use caution with getting up (5) Type 2 diabetes mellitus with hyperglycemia: Code(s): E11.65 - Type 2 diabetes mellitus with hyperglycemia Status: Acute Assessment and Plan: blood sugars are stable today continue Accu-Cheks, sliding scale insulin, hypoglycemic protocol home glipizide on hold given poor oral intake monitor glucose trends check A1c Subjective Date/time seen: 08/01/22 14:58 Interval history: date of service: 08/01/2022 Abel Pike is a 76-year-old male with a history of atrial fibrillation on chronic anticoagulation, CHF, ESRD on hemodialysis, hyperlipidemia, orthostatic hypotension, type 2 diabetes mellitus, and several other medical problems who is seen in follow-up for COVID-19. Patient reports that he has been feeling weak and generally unwell. Reports having COVID two previous times. He denies any significant shortness of breath. No cough. Denies nausea, vomiting, fever, or chills. Reports that he is incontinent of urine and is not able to indicate any urinary symptoms. He has poor appetite. He denies dizziness or lightheadedness. Review of Systems Review of Systems: All systems reviewed & are unremarkable except as noted in HPI and below Exam Narrative: General: Thin, chronically ill-appearing 76-year-old male, sitting up in bed, comfortable, NARD Neuro: awake, alert and oriented x4, speech clear, no focal neuro deficits noted HEENMT: normocephalic, atraumatic, EOMI, sclerae anicteric Respiratory: clear to auscultation bilaterally, nonlabored breathing Cardio: regular rate, regular rhythm with S1-S2 Abdomen: nondistended, normoactive bowel sounds, soft, nontender to palpation Extremities: AV fistula in left upper extremity with palpable thrill, BLE without edema, erythema, or tenderness to palpation, DP pulses 2+ bilaterally Skin: thickened toenails, no rashes or lesions, warm and dry Psych: appropriate mood and affect, judgment and insight intact Objective Data Vital Signs Vital Signs: Vital Signs - 24 hr 07/31/22 18:04 07/31/22 18:04 07/31/22 20:01 Temperature 99.7 F H Pulse Rate 69 69 71 Respiratory Rate 16 Blood Pressure 207/48 H Pulse Oximetry 96 Oxygen Delivery Oxygen Flow Rate 07/31/22 23:00 08/01/22 00:24 08/01/22 01:22 Temperature 97.9 F Pulse Rate 59 L 58 L Respiratory Rate 16 20 Blood Pressure 146/46 H 103/41 L Pulse Oximetry 99 98 98 Oxygen Delivery Nasal Cannula Oxygen Flow Rate 2 08/01/22 06:00
--- NOTE | 2022-08-01 15:54 | PM.CNNEP ---
Assessment and Plan Assessment and plan (1) End-stage renal disease on hemodialysis: Code(s): N18.6 - End stage renal disease; Z99.2 - Dependence on renal dialysis Status: Acute Assessment and Plan: end-stage renal disease COVID positive state with weakness and debility type 2 diabetes mellitus with end-stage nephropathy benign essential hypertension with hypertensive renal disease anemia of chronic kidney disease history of secondary hyperparathyroidism Plan -arranged dialysis today, orders entered in EHR - physical therapy -adequate nutrition -treatment of underlying complications of ESRD - follow-up of ESRD and related needs - currently may be on the dry side. Will hold furosemide. Can resume at discharge if stable History of Present Illness Reason for Consult Consult date: 08/01/22 Reason for consult: end stage renal disease Chief Complaint Chief complaint: covid, weakness History of Present Illness Narrative: A 76-year-old male with a history of diabetes mellitus, diabetic nephropathy, hypertension, hypertensive renal disease, ESRD, started on hemodialysis 4 months ago due to uremic symptoms as well as fluid management. His generally done well with dialysis. He does have developed low blood pressures which limits his fluid removal. However his fluid issues with shortness of breath have been resolved. He does not have any lower extremity swelling. He is comfortable with his breathing. He has an AV shunt in use for dialysis. He has come in with sudden onset weakness. Found to be COVID positive. chest x-ray does not show any acute cardiopulmonary infiltrates. At admission his temperature was 37.6?, blood pressure of was high as recorded in the emergency room. Systolic blood pressure greater than 200 He had his dialysis last Thursday and Thursday. However yesterday and we have some reason. He did not have any fevers. No nausea vomiting or diarrhea. Appetite diminished. Was not feeling too well. Presented to the emergency room via EMS and found to be COVID-positive. He has been admitted for further management. Review of Systems Review of Systems: patient has a nonproductive cough. does not voice any other systemic complaints. Did stand up today. Was able to support his weight though he states that he had very little. Negative of the system issues of note the patient has history of CHF with an ejection fraction of 30%, has diastolic heart failure as well. [facility] Past Medical History Medical History (Updated 08/01/22 @ 15:04 by Tisha J. 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 Dubois History of prostate cancer Hyperlipidemia Orthostatic hypotension Pneumonia due to COVID-19 virus Polymyalgia rheumatica Presbycusis, bilateral Pulmonary hypertension Secondary hyperparathyroidism of renal origin Ulcer Surgical History Surgical History (Updated 08/01/22 @ 07:42 by Rebecca Marcelino DO) Status post cataract extraction of both eyes with insertion of intraocular lens Status post creation of arteriovenous fistula Left upper arm Family History Family History Father
[2022-08-01] MEDS: SODIUM CHLORIDE 0.9% IV 1,000 ML 999 ML IV CONT (19:09)
[2022-08-01] MEDS: carvediloL 6.25 MG TABLET PO (19:28)
--- NOTE | 2022-08-01 20:28 | PC.NURSE ---
PT RETURNED FROM DIALYSIS.
[2022-08-01] MEDS: cloNIDine HCL 0.1 MG TABLET PO (20:31)
[2022-08-02 00:37] LABS: Glucose Point of Care 118 mg/dl (65-105)
[2022-08-02 05:50] VITALS: BP 158/56; PULSE 71; RESP 16; TEMP 36.4; O2SAT 93
[2022-08-02 06:10] LABS: Hematocrit 33.1 % (42.0-52.0); Hemoglobin 10.2 g/dL (14.0-18.0); Immature Platelet Fraction Pct 1.3 % (0.9-11.2); Mean Corpuscular HGB Conc 30.8 g/dl (32-36); Mean Corpuscular Hemoglobin 30.5 pg (26-34); Mean Corpuscular Volume 99.1 fl (80-100); Mean Platelet Volume 9.6 fl (7.4-10.4); Platelet Count Result 103 k/mm3 (150-375); Red Blood Count 3.34 M/mm3 (4.6-6.20); Red Cell Distribution Width 15.8 % (11.5-14.5); White Blood Count 5.4 K/mm3 (4.5-10.0)
[2022-08-02 06:24] LABS: Anion Gap 4 mmol/L (8-16); Blood Urea Nitrogen 31 mg/dL (9-20); Calcium 8.1 mg/dL (8.4-10.2); Carbon Dioxide 38 mmol/L (22-30); Chloride 97 mmol/L (98-107); Estimated CRCL calculation 16 ml/min; Estimated Glomerular Filt Rate 18; Glucose 104 mg/dL (65-110); Sodium 139 mmol/L (137-145)
[2022-08-02 07:55] LABS: Hemoglobin A1C 5.4 % (<5.7)
[2022-08-02 08:47] LABS: Glucose Point of Care 85 mg/dl (65-105)
[2022-08-02] MEDS: FERROUS SULFATE 324 MG TABLET PO ×2 (09:23→17:11)
[2022-08-02] MEDS: VITAMIN B CMPLX/VIT C/FOLIC AC 1 CAPSULE 1 CAP PO (09:24)
[2022-08-02] MEDS: CHOLECALCIFEROL 1,000 UNITS TABLET 2000 UNITS PO ×2 (09:24→17:11)
[2022-08-02] MEDS: APIXABAN 5 MG TABLET PO ×2 (09:24→17:10)
[2022-08-02 09:25] VITALS: PULSE 65; RESP 16; O2SAT 93
[2022-08-02] MEDS: carvediloL 6.25 MG TABLET PO ×2 (09:25→17:11)
--- NOTE | 2022-08-02 09:39 | PM.PNNEP ---
Progress Note: A&P Assessment and Plan (1) End-stage renal disease on hemodialysis: Code(s): N18.6 - End stage renal disease; Z99.2 - Dependence on renal dialysis Status: Acute Assessment and Plan: Patient has end-stage renal disease. he is due for dialysis on Thursday Volume status looks good. Potassium is normal. (2) COVID: Code(s): U07.1 - COVID-19 Status: Acute Assessment and Plan: Patient has COVID. No fever or hypoxia. Just generalized weakness. (3) Anemia, chronic disease: Code(s): D63.8 - Anemia in other chronic diseases classified elsewhere Status: Acute Assessment and Plan: Hemoglobin 10.2. He did not receive EPO yesterday. Will give him 1 dose subcu right now. (4) Secondary hyperparathyroidism of renal origin: Code(s): N25.81 - Secondary hyperparathyroidism of renal origin Status: Acute Assessment and Plan: Will check a phosphorus in the morning (5) Type 2 diabetes mellitus with moderate nonproliferative diabetic retinopathy without macular edema, bilateral: Code(s): E11.3393 - Type 2 diabetes mellitus with moderate nonproliferative diabetic retinopathy without macular edema, bilateral Status: Acute Assessment and Plan: On Accu-Cheks and sliding scale insulin per hospitalist (6) Hypertension: Code(s): I10 - Essential (primary) hypertension Status: Chronic Assessment and Plan: Systolic running in the 150s Subjective Date/time seen: 08/02/22 09:39 Interval history: Abel is feeling better today. No shortness of breath or cough. He is still generally weak. Review of Systems Cardiovascular: Cardiovascular: Reports no additional cardiovascular complaints Respiratory: Respiratory: Reports no additional respiratory complaints Gastrointestinal: Gastrointestinal: Reports no additional gastrointestinal complaints Genitourinary: Genitourinary: Reports no additional male genitourinary complaints Exam Narrative: WDWN in NAD skin no rash head ncat lungs clear cor reg no rub abd BS+ nontender and soft ext no edema. Objective Data Vital Signs Vital Signs: Vital Signs - 24 hr 08/01/22 14:00 08/01/22 14:55 08/01/22 16:45 Temperature 97.5 F L 98.9 F Pulse Rate 57 L 56 L Respiratory Rate 16 16 Blood Pressure 150/50 H 208/59 H Pulse Oximetry 98 Oxygen Delivery Room Air 08/01/22 16:56 08/01/22 17:20 08/01/22 17:40 Temperature Pulse Rate 55 L 56 L 57 L Respiratory Rate Blood Pressure 205/68 H 195/63 H 216/69 H Pulse Oximetry Oxygen Delivery 08/01/22 18:10 08/01/22 18:30 08/01/22 18:50 Temperature Pulse Rate 59 L 62 62 Respiratory Rate Blood Pressure 195/68 H 199/63 H 223/80 H Pulse Oximetry Oxygen Delivery 08/01/22 19:10 08/01/22 19:28 08/01/22 19:30 Temperature Pulse Rate 64 64 64 Respiratory Rate Blood Pressure 223/68 H 204/61 H Pulse Oximetry Oxygen Delivery 08/01/22 19:50 08/01/22 19:57 08/01/22 20:19 Temperature 99.1 F Pulse Rate 64 65 67 Respiratory Rate 16 Blood Pressure 199/57 H 199/52 H 195/57 H Pulse Oximetry Oxygen Delivery 08/01/22 22:00 08/01/22 20:35 08/02/22 05:50 Temperature 98.1 F 97.6 F Pulse Rate 78 71 Respiratory Rate 18 16 Blood Pressure 157/55 H 158/56 H Pulse Oximetry 92 93 Oxygen Delivery Room Air 08/02/22 09:25 Temperature Pulse Rate 65 Respiratory Rate Blood Pressure Pulse Oximetry Oxygen Delivery Intake/Output Intake/Output: Intake & Output 07/30/22 07/31/22 08/01/22 08/02/22 23:59 23:59 23:59 23:59 Intake Total 500 980 100 Output Total 1100 Balance 500 -120 100 Meds/Results Medications: Active Medications Generic Name Dose Route Start Last Admin Trade Name Freq PRN Reason Stop Dose Admin Acetaminophen 650 mg 07/31/22 21:45 Acetaminophen 325 Mg Tablet PO Q4H PRN Mild Pain (1-3) or Fever
[2022-08-02] MEDS: EPOETIN ALFA-EPBX 10,000 UNITS/ML VIAL 10000 UNITS SUB-Q (11:15)
[2022-08-02 12:22] LABS: Glucose Point of Care 173 mg/dl (65-105)
[2022-08-02 14:00] VITALS: PULSE 55; RESP 20; TEMP 36.1
--- NOTE | 2022-08-02 14:05 | PCOTNOTE ---
Attempted to see pt for Occupational Therapy treatment. Pt declined to participate due to increase fatigue stating I'm worn out... . RN also verbalized stating that pt has been very tired since physical therapy session earlier today. Pt was educated on the importance of continued therapy for increase strengthening and activity tolerance in order to return home. Will continue per POC duration/frequency tomorrow.
--- NOTE | 2022-08-02 16:30 | PM.IMPN ---
Progress Note: A&P Assessment and Plan (1) Generalized weakness: Code(s): R53.1 - Weakness Status: Acute Assessment and Plan: acute on chronic worsening of weakness likely secondary to acute viral illness appreciate PT/OT evals out of bed for meals implement fall precautions (2) COVID: Code(s): U07.1 - COVID-19 Status: Acute Assessment and Plan: COVID PCR positive on 07/31/2022 patient does not have supplemental oxygen requirement during the daytime. He has had no episodes of hypoxia, however is on 2 L at this time for what appears to be comfort. Supplemental oxygen should be discontinued during the daytime as patient is not hypoxic. Because daytime oxygen is not required, there is no indication for steroids. Remdesivir contraindicated to to ESRD supportive care continue isolation precautions patient reports completion of COVID vaccine and booster (3) End-stage renal disease on hemodialysis: Code(s): N18.6 - End stage renal disease; Z99.2 - Dependence on renal dialysis Status: Acute Assessment and Plan: maintained on hemodialysis on Thursday, Thursday, Thursday hemodialysis 08/01. appreciate nephrology consultation for management of dialysis (4) Hypertension: Code(s): I10 - Essential (primary) hypertension Status: Chronic Assessment and Plan: blood pressure was markedly elevated in the ED at 207/48 with normalization following resuming home antihypertensives. BP improving, last BP 158/56 continue home carvedilol and furosemide history of orthostatic hypotension noted, continue to use caution with getting up (5) Type 2 diabetes mellitus with hyperglycemia: Code(s): E11.65 - Type 2 diabetes mellitus with hyperglycemia Status: Acute Assessment and Plan: blood sugars are stable today. A1c is 5.4 continue Accu-Cheks, sliding scale insulin, hypoglycemic protocol home glipizide on hold monitor glucose trends (6) Dependence on nocturnal oxygen therapy: Code(s): Z99.81 - Dependence on supplemental oxygen Status: Acute Assessment and Plan: Patient reports using 2 L supplemental oxygen each night while asleep Continue with home nocturnal oxygen therapy Subjective Date/time seen: 08/02/22 16:30 Interval history: date of service: 08/02/2022 Abel Pike is a 76-year-old male with a history of atrial fibrillation on chronic anticoagulation, CHF, ESRD on hemodialysis, hyperlipidemia, orthostatic hypotension, type 2 diabetes mellitus, and several other medical problems who is seen in follow-up for COVID-19. He is starting to feel little better today. Reports some improvement in his weakness. Denies dizziness or lightheadedness. Still endorses poor appetite. Denies shortness of breath at this time. States that his nighttime oxygen was for gotten last night and he did wake up feeling somewhat short of breath today. Reports occasional cough. Tolerated hemodialysis yesterday. Patient reports he does not make much urine and is unsure if he has urinated today as he is incontinent. He has no other concerns Review of Systems Review of Systems: All systems reviewed & are unremarkable except as noted in HPI and below Exam Narrative: General: thin, chronically ill-appearing 76-year-old male, sitting up in bed, comfortable, NARD Neuro: awake, alert and oriented x4, speech clear, no focal neuro deficits noted HEENMT: normocephalic, atraumatic, EOMI, sclerae anicteric Respiratory: clear to auscultation bilaterally, nonlabored breathing Cardio: regular rate, regular rhythm with S1-S2 Abdomen: nondistended, normoactive bowel sounds, soft, nontender to palpation Extremities: BLE without edema, erythema, or tenderness to palpation Skin: no rashes or lesions, warm and dry Psych: appropriate mood and affect, judgment and insight intact Objective Data Vital Si
[2022-08-02 17:11] VITALS: PULSE 54
[2022-08-02 17:28] LABS: Glucose Point of Care 162 mg/dl (65-105)
[2022-08-02 21:10] VITALS: BP 142/51; PULSE 55; RESP 16; TEMP 36.6; O2SAT 95
[2022-08-02 21:41] LABS: Glucose Point of Care 170 mg/dl (65-105)
[2022-08-03] VITALS (7 sets, daily range): BP systolic 146–155; BP diastolic 47–67; PULSE 49–57; RESP 16–20; TEMP 36.4–36.6; O2SAT 97–100
[2022-08-03 05:49] LABS: Hematocrit 30.8 % (42.0-52.0); Hemoglobin 9.4 g/dL (14.0-18.0); Mean Corpuscular HGB Conc 30.5 g/dl (32-36); Mean Corpuscular Hemoglobin 30.4 pg (26-34); Mean Corpuscular Volume 99.7 fl (80-100); Platelet Count Result 109 k/mm3 (150-375); Red Blood Count 3.09 M/mm3 (4.6-6.20); Red Cell Distribution Width 15.9 % (11.5-14.5); White Blood Count 5.5 K/mm3 (4.5-10.0)
[2022-08-03 05:56] LABS: Alanine Aminotransferase 32 U/L (6-50); Albumin Level 3.2 g/dL (3.5-5.1); Alkaline Phosphatase 72 U/L (38-126); Anion Gap 5 mmol/L (8-16); Aspartate Amino Transferase 39 U/L (17-59); Bilirubin,Total 0.4 mg/dL (0.2-1.3); Blood Urea Nitrogen 54 mg/dL (9-20); Calcium 7.9 mg/dL (8.4-10.2); Carbon Dioxide 36 mmol/L (22-30); Chloride 100 mmol/L (98-107); Estimated CRCL calculation 11 ml/min; Estimated Glomerular Filt Rate 12; Glucose 108 mg/dL (65-110); Phosphorus 5.1 mg/dL (2.5-4.5); Potassium 4.2 mmol/L (3.4-5.0); Sodium 141 mmol/L (137-145)
[2022-08-03 08:34] LABS: Glucose Point of Care 114 mg/dl (65-105)
--- NOTE | 2022-08-03 08:45 | PM.PNNEP ---
Progress Note: A&P Assessment and Plan (1) End-stage renal disease on hemodialysis: Code(s): N18.6 - End stage renal disease; Z99.2 - Dependence on renal dialysis Status: Acute Assessment and Plan: Patient has end-stage renal disease. he is due for dialysis on Thursday Volume status looks good. Potassium is normal. He makes a little bit of urine. His blood pressure is a bit generous. Will have dialysis remove 1-2 L as tolerated by the blood pressure (2) COVID: Code(s): U07.1 - COVID-19 Status: Acute Assessment and Plan: Patient has COVID. No fever or hypoxia. Just generalized weakness. This seems to be improved. Home when ready from the hospitalist's perspective. (3) Anemia, chronic disease: Code(s): D63.8 - Anemia in other chronic diseases classified elsewhere Status: Acute Assessment and Plan: Hemoglobin 9.4. He received EPO yesterday. 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 No shortness of breath or cough. Strength is better. Physical therapy has been walking him around the room and he is been up in a chair. Exam Narrative: WDWN in NAD skin no rash head ncat lungs clear bilaterally cor reg no rub abd BS+ nontender and soft ext no edema. Objective Data Vital Signs Vital Signs: Vital Signs - 24 hr 08/02/22 09:25 08/02/22 10:10 08/02/22 09:25 Temperature Pulse Rate 65 65 Respiratory Rate 16 Blood Pressure Pulse Oximetry 93 Oxygen Delivery Nasal Cannula Nasal Cannula Oxygen Flow Rate 2 2 08/02/22 17:11 08/02/22 14:00 08/02/22 21:10 Temperature 96.9 F L 97.8 F Pulse Rate 54 L 55 L 55 L Respiratory Rate 20 16 Blood Pressure 142/51 H Pulse Oximetry 95 Oxygen Delivery Oxygen Flow Rate 08/02/22 20:00 08/03/22 04:39 Temperature 97.9 F Pulse Rate 53 L Respiratory Rate 16 Blood Pressure 153/57 H Pulse Oximetry 100 Oxygen Delivery Room Air Oxygen Flow Rate Intake/Output Intake/Output: Intake & Output 07/31/22 08/01/22 08/02/22 08/03/22 23:59 23:59 23:59 23:59 Intake Total 500 980 940 250 Output Total 1100 Balance 500 -120 940 250 Meds/Results Medications: Active Medications Generic Name Dose Route Start Last Admin Trade Name Freq PRN Reason Stop Dose Admin Acetaminophen 650 mg 07/31/22 21:45 Acetaminophen 325 Mg Tablet PO Q4H PRN Mild Pain (1-3) or Fever Apixaban 5 mg 08/01/22 09:00 08/02/22 17:10 Apixaban 5 Mg Tablet PO 5 mg BID ALENA Administration Carvedilol 6.25 mg 08/01/22 09:00 08/02/22 17:11 Carvedilol 6.25 Mg Tablet PO 6.25 mg BID ALENA Administration Dextrose 12.5 gm 08/01/22 07:56 Dextrose 50% 25 Gm/50 Ml Syringe IV PUSH PRN PRN Hypoglycemia Protocol Ferrous Sulfate 324 mg 08/01/22 08:00 08/02/22 17:11 Ferrous Sulfate 324 Mg Tablet PO 324 mg BIDWM ALENA Administration Glucagon 1 mg 08/01/22 07:56 Glucagon For Inj 1 Mg Vial IM PRN PRN Hypoglycemia Protocol Glucose 15 gm 08/01/22 07:56 Glucose Oral Gel 15 Gm Of Glucse In 37.5 Gm Tube PO PRN PRN Hypoglycemia
[2022-08-03] MEDS: APIXABAN 5 MG TABLET PO ×2 (09:22→16:33)
[2022-08-03] MEDS: VITAMIN B CMPLX/VIT C/FOLIC AC 1 CAPSULE 1 CAP PO (09:22)
[2022-08-03] MEDS: CHOLECALCIFEROL 1,000 UNITS TABLET 2000 UNITS PO ×2 (09:22→16:35)
[2022-08-03] MEDS: FERROUS SULFATE 324 MG TABLET PO ×2 (09:22→16:36)
[2022-08-03] MEDS: carvediloL 6.25 MG TABLET PO (09:23)
[2022-08-03 12:31] LABS: Glucose Point of Care 207 mg/dl (65-105)
[2022-08-03] MEDS: INSULIN ASPART (*BKC) 100 UNITS/ML SUB-Q (12:36)
--- NOTE | 2022-08-03 12:54 | PM.IMPN ---
Progress Note: A&P Assessment and Plan (1) Generalized weakness: Code(s): R53.1 - Weakness Status: Acute Assessment and Plan: acute on chronic worsening of weakness likely secondary to acute viral illness appreciate PT/OT evals out of bed for meals implement fall precautions (2) COVID: Code(s): U07.1 - COVID-19 Status: Acute Assessment and Plan: COVID PCR positive on 07/31/2022 patient does not have supplemental oxygen requirement during the daytime. He has had no episodes of hypoxia and there is no indication for steroids. Remdesivir contraindicated to to ESRD supportive care to include bronchodilators, expectorants, incentive spirometry continue isolation precautions patient reports completion of COVID vaccine and booster (3) End-stage renal disease on hemodialysis: Code(s): N18.6 - End stage renal disease; Z99.2 - Dependence on renal dialysis Status: Acute Assessment and Plan: maintained on hemodialysis on Thursday, Thursday, Thursday had hemodialysis 08/01. appreciate nephrology consultation for management of dialysis next dialysis tomorrow (4) Hypertension: Code(s): I10 - Essential (primary) hypertension Status: Chronic Assessment and Plan: blood pressure was markedly elevated in the ED at 207/48 with normalization following resuming home antihypertensives. BP improving, last BP 153/57 continue home carvedilol and furosemide history of orthostatic hypotension noted, continue to use caution with getting up (5) Type 2 diabetes mellitus with hyperglycemia: Code(s): E11.65 - Type 2 diabetes mellitus with hyperglycemia Status: Acute Assessment and Plan: blood sugars are stable today. A1c is 5.4 continue Accu-Cheks, sliding scale insulin, hypoglycemic protocol home glipizide on hold monitor glucose trends (6) Dependence on nocturnal oxygen therapy: Code(s): Z99.81 - Dependence on supplemental oxygen Status: Acute Assessment and Plan: Patient reports using 2 L supplemental oxygen each night while asleep Continue with home nocturnal oxygen therapy Subjective Date/time seen: 08/03/22 12:54 Interval history: date of service: 08/03/2022 Abel Pike is a 76-year-old male with a history of atrial fibrillation on chronic anticoagulation, CHF, ESRD on hemodialysis, hyperlipidemia, orthostatic hypotension, type 2 diabetes mellitus, and several other medical problems who is seen in follow-up for COVID-19. Reports that he is feeling slowly but surely improved. He still feels quite weak and is needing some assistance to get around. He occasionally still has some shortness of breath states that this is improved. He feels congestion in his chest and feels like he cannot expectorate. Reports he was able to urinate today and had no issues. Also had a bowel movement. Tolerating his diet. No nausea or vomiting. No chest pain or palpitations. Review of Systems Review of Systems: All systems reviewed & are unremarkable except as noted in HPI and below Exam Narrative: General: thin, chronically ill-appearing 76-year-old male, sitting up in a chair, comfortable, NARD Neuro: awake, alert and oriented x4, speech clear, no focal neuro deficits noted HEENMT: normocephalic, atraumatic, EOMI, sclerae anicteric Respiratory: clear to auscultation bilaterally, nonlabored breathing Cardio: regular rate, regular rhythm with S1-S2 Abdomen: nondistended, normoactive bowel sounds, soft, nontender to palpation Extremities: BLE without edema, erythema, or tenderness to palpation Skin: no rashes or lesions, warm and dry Psych: appropriate mood and affect, judgment and insight intact Objective Data Vital Signs Vital Signs: Vital Signs - 24 hr 08/02/22 17:11 08/02/22 14:00 08/02/22 21:10 Temperature 96.9 F L 97.8 F Pulse Rate 54 L 55 L 55 L Respiratory R
[2022-08-03 17:02] LABS: Glucose Point of Care 172 mg/dl (65-105)
[2022-08-03] MEDS: guaiFENesin 12 HR 600 MG TABCR PO (20:48)
[2022-08-03 22:10] LABS: Glucose Point of Care 181 mg/dl (65-105)
[2022-08-04] VITALS (17 sets, daily range): BP systolic 114–217; BP diastolic 43–99; PULSE 54–61; RESP 14–18; TEMP 36.6–37; O2SAT 98–100
[2022-08-04 05:47] LABS: Hematocrit 32.1 % (42.0-52.0); Hemoglobin 9.8 g/dL (14.0-18.0); Mean Corpuscular HGB Conc 30.5 g/dl (32-36); Mean Corpuscular Hemoglobin 30.6 pg (26-34); Mean Corpuscular Volume 100.3 fl (80-100); Mean Platelet Volume 9.3 fl (7.4-10.4); Platelet Count Result 134 k/mm3 (150-375); Red Cell Distribution Width 15.8 % (11.5-14.5)
[2022-08-04 05:52] LABS: Alanine Aminotransferase 48 U/L (6-50); Albumin Level 3.1 g/dL (3.5-5.1); Alkaline Phosphatase 74 U/L (38-126); Anion Gap 5 mmol/L (8-16); Aspartate Amino Transferase 43 U/L (17-59); Bilirubin,Total 0.5 mg/dL (0.2-1.3); Blood Urea Nitrogen 68 mg/dL (9-20); Calcium 7.7 mg/dL (8.4-10.2); Carbon Dioxide 35 mmol/L (22-30); Chloride 98 mmol/L (98-107); Estimated CRCL calculation 9 ml/min; Estimated Glomerular Filt Rate 10; Glucose 95 mg/dL (65-110); Potassium 4.6 mmol/L (3.4-5.0); Sodium 138 mmol/L (137-145)
[2022-08-04 06:31] LABS: Albumin Level 3.3 g/dL (3.5-5.1); Anion Gap 4 mmol/L (8-16); Blood Urea Nitrogen 68 mg/dL (9-20); Calcium 7.9 mg/dL (8.4-10.2); Carbon Dioxide 34 mmol/L (22-30); Chloride 99 mmol/L (98-107); Estimated CRCL calculation 9 ml/min; Estimated Glomerular Filt Rate 10; Glucose 95 mg/dL (65-110); Phosphorus 5.1 mg/dL (2.5-4.5); Potassium 4.5 mmol/L (3.4-5.0); Sodium 137 mmol/L (137-145)
[2022-08-04 08:53] LABS: Glucose Point of Care 115 mg/dl (65-105)
[2022-08-04] MEDS: guaiFENesin 12 HR 600 MG TABCR PO (09:53)
[2022-08-04] MEDS: CHOLECALCIFEROL 1,000 UNITS TABLET 2000 UNITS PO (09:53)
[2022-08-04] MEDS: VITAMIN B CMPLX/VIT C/FOLIC AC 1 CAPSULE 1 CAP PO (09:53)
[2022-08-04] MEDS: carvediloL 6.25 MG TABLET PO (09:53)
[2022-08-04] MEDS: FERROUS SULFATE 324 MG TABLET PO (09:54)
[2022-08-04] MEDS: APIXABAN 5 MG TABLET PO (09:54)
--- NOTE | 2022-08-04 10:15 | PM.DS ---
DS: Admitting Diagnosis Discharge Date 08/04/22 1015 Admitting Diagnosis COVID-19 DS: Discharge Diagnosis Discharge Diagnosis (1) Generalized weakness: Code(s): R53.1 - Weakness Status: Acute Assessment and Plan: acute on chronic worsening of weakness likely secondary to acute viral illness appreciate PT/OT evals out of bed for meals implement fall precautions (2) COVID: Code(s): U07.1 - COVID-19 Status: Acute Assessment and Plan: COVID PCR positive on 07/31/2022 patient does not have supplemental oxygen requirement during the daytime. He has had no episodes of hypoxia and there is no indication for steroids. Remdesivir contraindicated to to ESRD supportive care to include bronchodilators, expectorants, incentive spirometry continue isolation precautions patient reports completion of COVID vaccine and booster (3) End-stage renal disease on hemodialysis: Code(s): N18.6 - End stage renal disease; Z99.2 - Dependence on renal dialysis Status: Chronic Assessment and Plan: maintained on hemodialysis on Thursday, Thursday, Thursday had hemodialysis 08/01. appreciate nephrology consultation for management of dialysis next dialysis tomorrow (4) Hypertension: Code(s): I10 - Essential (primary) hypertension Status: Chronic Assessment and Plan: blood pressure was markedly elevated in the ED at 207/48 with normalization following resuming home antihypertensives. BP improving, last BP 153/57 continue home carvedilol and furosemide history of orthostatic hypotension noted, continue to use caution with getting up (5) Type 2 diabetes mellitus with hyperglycemia: Code(s): E11.65 - Type 2 diabetes mellitus with hyperglycemia Status: Acute Assessment and Plan: blood sugars are stable today. A1c is 5.4 continue Accu-Cheks, sliding scale insulin, hypoglycemic protocol home glipizide on hold monitor glucose trends (6) Dependence on nocturnal oxygen therapy: Code(s): Z99.81 - Dependence on supplemental oxygen Status: Acute Assessment and Plan: Patient reports using 2 L supplemental oxygen each night while asleep Continue with home nocturnal oxygen therapy DS: Summary Hospital Course Hospital Course: patient is a 76-year-old male with a past medical history of end-stage renal disease on dialysis, hypertension, type 2 diabetes, anemia, hyperlipidemia who presented to the ED with complaints increasing weakness. Patient recently started on hemodialysis about a month ago and has been weaker than usual. Patient did have a fall however no injuries were sustained. Upon arrival to the ED he was noted to have a site elevated temperature 99.7?. Patient did test positive for COVID on 07/31/2022. Patient was unable to get remdesivir any antivirals due to end-stage renal disease and contraindications. Patient has remained on his 2 L nasal cannula which is his home dose. patient is currently stable for discharge at this time per labs and vital signs. Patient has been able to get up and down and get around the room well. Currently patient denies any current chest pain, shortness a breath, nausea, vomiting, diarrhea or constipation. He is complaining of some congestion. He will get a Claritin D which he stated that he takes at home every other day. He is ready to go home, and can be DC after dialysis Patient is due for dialysis today and can be discharged after his treatment. Status at Discharge Functional status at discharge: uses cane/walker Overall status at discharge: patient is progressing back to baseline Time Spent with Patient Time attestation: Total time spent providing and/or coordinating discharge services: 48 minutes Time spent: Greater than 30 minutes Specific discharge activities: Diagnostic testing, chart review, developing a treatment plan, education, care coordination d
[2022-08-04 11:59] LABS: Glucose Point of Care 188 mg/dl (65-105)
[2022-08-04] MEDS: LORATADINE/PSEUDOEPHEDRINE (*CRX) 10/240 MG TABLET ER 24 HR 1 TAB PO (12:52)
--- NOTE | 2022-08-04 13:05 | PCOTNOTE ---
Attempted to see patient this pm, however patient was with physical therapy and then going to dialysis.
[2022-08-04] MEDS: SODIUM CHLORIDE 0.9% IV 1,000 ML 999 ML (14:10)
--- NOTE | 2022-08-04 14:24 | P.PNNP_ITS ---
Progress Note: A&P Assessment and Plan (1) End-stage renal disease on hemodialysis: Code(s): N18.6 - End stage renal disease; Z99.2 - Dependence on renal dialysis Status: Chronic Assessment and Plan: * HD today and continue M/W/ dialysis schedule * follow electrolytes, volume status, and clearance (2) COVID: Code(s): U07.1 - COVID-19 Status: Acute Assessment and Plan: * as noted by testing * however, no fever or hypoxia present * major symptom was generalized weakness (which has improved) * continue supportive therapy (3) Anemia, chronic disease: Code(s): D63.8 - Anemia in other chronic diseases classified elsewhere Status: Chronic Assessment and Plan: * due to ESRD possibly worsned by acute illness/infection * Epogen with HD * follow trend of H/H (4) Hypertension: Code(s): I10 - Essential (primary) hypertension Status: Chronic Assessment and Plan: * reasonable control at this time * follow trend of hemodynamics (5) Type 2 diabetes mellitus with moderate nonproliferative diabetic retinopathy without macular edema, bilateral: Code(s): E11.3393 - Type 2 diabetes mellitus with moderate nonproliferative diabetic retinopathy without macular edema, bilateral Status: Acute Assessment and Plan: * follow accucheks * glycemic control per hospitalists Will continue to follow. Subjective Date/time seen: 08/04/22 14:24 Tolerating dialysis at the time of my visit (seen on HD at 2:00pm); no apparent issues or complaints voiced; noted plans for discharge after dialysis today; no other events overnight or earlier this morning; overall, he states he feels pretty good. Exam Narrative: General: elderly Caucasioan male in NAD Heart: normal S1 and S2; no rub Lungs: clear to auscultation Abdomen: soft, nontender, nondistended, positive bowel sounds Extremities: no cyanosis or clubbing; no edema Skin: warm and dry Objective Data Vital Signs Vital Signs: Vital Signs Temp Pulse Resp BP Pulse Ox O2 Del Method 08/04/22 14:20 54 L 130/46 L 08/04/22 14:00 56 L 116/99 H 08/04/22 13:41 58 L 205/69 H 08/04/22 13:34 97.9 F 54 L 16 217/62 H 08/04/22 09:55 55 L 18 98 Room Air 08/04/22 09:53 55 L 08/04/22 04:50 98 F 55 L 18 147/43 H 100 08/03/22 20:49 97.8 F 54 L 16 155/47 H 97 08/03/22 20:00 100 Room Air Intake/Output Intake/Output: Intake & Output 08/01/22 08/02/22 08/03/22 08/04/22 23:59 23:59 23:59 23:59 Intake Total 844 370 2920 490 Output Total 1100 Balance -229 366 1563 490 Meds/Results Medications: Active Medications Generic Name Dose Route Start Last Admin Trade Name Freq PRN Reason Stop Dose Admin Acetaminophen 650 mg 07/31/22 21:45 Acetaminophen 325 Mg Tablet PO Q4H PRN Mild Pain (1-3) or Fever Apixaban 5 mg 08/01/22 09:00 08/04/22 09:54 Apixaban 5 Mg Tablet PO 5 mg BID ALENA Administration Carvedilol 6.25 mg 08/01/22 09:00 08/04/22 09:53 Carvedilol 6.25 Mg Tablet PO 6.25 mg BID ALENA Administration
--- NOTE | 2022-08-04 14:24 | PM.PNNEP ---
Progress Note: A&P Assessment and Plan (1) End-stage renal disease on hemodialysis: Code(s): N18.6 - End stage renal disease; Z99.2 - Dependence on renal dialysis Status: Chronic Assessment and Plan: HD today and continue M/W/F dialysis schedule follow electrolytes, volume status, and clearance (2) COVID: Code(s): U07.1 - COVID-19 Status: Acute Assessment and Plan: as noted by testing however, no fever or hypoxia present major symptom was generalized weakness (which has improved) continue supportive therapy (3) Anemia, chronic disease: Code(s): D63.8 - Anemia in other chronic diseases classified elsewhere Status: Chronic Assessment and Plan: due to ESRD possibly worsned by acute illness/infection Epogen with HD follow trend of H/H (4) Hypertension: Code(s): I10 - Essential (primary) hypertension Status: Chronic Assessment and Plan: reasonable control at this time follow trend of hemodynamics (5) Type 2 diabetes mellitus with moderate nonproliferative diabetic retinopathy without macular edema, bilateral: Code(s): E11.3393 - Type 2 diabetes mellitus with moderate nonproliferative diabetic retinopathy without macular edema, bilateral Status: Acute Assessment and Plan: follow accucheks glycemic control per hospitalists Will continue to follow. Subjective Date/time seen: 08/04/22 14:24 Tolerating dialysis at the time of my visit (seen on HD at 2:00pm); no apparent issues or complaints voiced; noted plans for discharge after dialysis today; no other events overnight or earlier this morning; overall, he states he feels pretty good. Exam Narrative: General: elderly Caucasio[place] male in NAD Heart: normal S1 and S2; no rub Lungs: clear to auscultation Abdomen: soft, nontender, nondistended, positive bowel sounds Extremities: no cyanosis or clubbing; no edema Skin: warm and dry Objective Data Vital Signs Vital Signs: Vital Signs Temp Pulse Resp BP Pulse Ox O2 Del Method 08/04/22 14:20 54 L 130/46 L 08/04/22 14:00 56 L 116/99 H 08/04/22 13:41 58 L 205/69 H 08/04/22 13:34 97.9 F 54 L 16 217/62 H 08/04/22 09:55 55 L 18 98 Room Air 08/04/22 09:53 55 L 03/20/23 04:50 98 F 55 L 18 147/43 H 100 08/03/22 20:49 97.8 F 54 L 16 155/47 H 97 08/03/22 20:00 100 Room Air Intake/Output Intake/Output: Intake & Output 08/01/22 08/02/22 08/03/22 08/04/22 23:59 23:59 23:59 23:59 Intake Total 860 986 1877 490 Output Total 1100 Balance -507 460 3511 490 Meds/Results Medications: Active Medications Generic Name Dose Route Start Last Admin Trade Name Freq PRN Reason Stop Dose Admin Acetaminophen 650 mg 07/31/22 21:45 Acetaminophen 325 Mg Tablet PO Q4H PRN Mild Pain (1-3) or Fever Apixaban 5 mg 08/01/22 09:00 08/04/22 09:54 Apixaban 5 Mg Tablet PO 5 mg BID ALENA Administration Carvedilol 6.25 mg 08/01/22 09:00 08/04/22 09:53 Carvedilol 6.25 Mg Tablet PO 6.25 mg BID ALENA Administration Dextrose 12.5 gm 08/01/22 07:56 Dextrose 50% 25 Gm/50 Ml Syringe IV PUSH PRN PRN Hypoglycemia Protocol Epoetin Noe-epbx 10,000 units 08/04/22 16:00 Epoetin Noe-Epbx 10,000 Units/Ml Vial IV PUSH MoWeFr@1600 [facility] Ferrous Sulfate 324 mg 08/01/22 08:00 08/04/22 09:54 Ferrous Sulfate 324 Mg Tablet PO 324 mg BIDWM ALENA Administration Glucagon 1 mg 08/01/22 07:56 Glucagon For Inj 1 Mg Vial IM PRN PRN Hypoglycemia Protocol Glucose 15 gm 08/01/22 07:56 Glucose Oral Gel 15 Gm Of Glucse In 37.5 Gm Tube PO PRN PRN Hypoglycemia Protocol Guaifenesin 600 mg 08/03/22 21:00 08/04/22 09:53 Guaifenesin 12 Hr 600 Mg Tabcr PO 600 mg Q12HR ALENA Administration Dextrose 1,000 mls @ 100 mls/hr 08/01/22 07:56 Dextrose 5% 1,000 M
[2022-08-04 17:44] LABS: Glucose Point of Care 133 mg/dl (65-105)
== END 2022-08-04 18:30 | disposition home health service (06) ==
LOC: ANHED 21:47 → ANH3MED 08-01 07:09
PROVIDERS: Internal Medicine Nephrology; Admitting Provider Internal Medicine; Emergency Provider Emergency Medicine; PCP Family Medicine Adolescent Medicine; Visit Provider Physician Assistant
DX: I13.2 Hypertensive heart and chronic kidney disease with heart failure and with stage 5 chronic kidney disease, or end stage renal disease (principal); E11.22 Type 2 diabetes mellitus with diabetic chronic kidney disease; N18.6 End stage renal disease; I50.40 Unspecified combined systolic (congestive) and diastolic (congestive) heart failure; Z99.2 Dependence on renal dialysis; D63.1 Anemia in chronic kidney disease; U07.1 COVID-19; N25.81 Secondary hyperparathyroidism of renal origin; J32.9 Chronic sinusitis, unspecified; W18.30XA Fall on same level, unspecified, initial encounter; E78.5 Hyperlipidemia, unspecified; L30.9 Dermatitis, unspecified; I95.1 Orthostatic hypotension; E11.40 Type 2 diabetes mellitus with diabetic neuropathy, unspecified; E11.3393 Type 2 diabetes mellitus with moderate nonproliferative diabetic retinopathy without macular edema, bilateral; Z99.81 Dependence on supplemental oxygen; E11.65 Type 2 diabetes mellitus with hyperglycemia; I45.4 Nonspecific intraventricular block; I48.91 Unspecified atrial fibrillation; M35.3 Polymyalgia rheumatica; F17.220 Nicotine dependence, chewing tobacco, uncomplicated; F10.90 Alcohol use, unspecified, uncomplicated; Z85.46 Personal history of malignant neoplasm of prostate; Z86.16 Personal history of COVID-19; Z87.01 Personal history of pneumonia (recurrent); Z79.4 Long term (current) use of insulin; Z79.01 Long term (current) use of anticoagulants; Z79.899 Other long term (current) drug therapy; Z80.42 Family history of malignant neoplasm of prostate; Z84.89 Family history of other specified conditions; Z82.49 Family history of ischemic heart disease and other diseases of the circulatory system
CPT/HCPCS: 36415; 71046; 80048; 80053; 80069; 82948; 83036; 84100; 85025; 85027; 85055; 86706; 87340; 87636; 93005; 94667; 96360; 96361; 96372; 97110; 97161; 97166; 97530; 97535; 99285; A9270; G0257; G0378; J1815; J7030; J7040; Q5105

== ENCOUNTER 2023-06-11 08:33 | Outpatient (CLI) | payer MEDICARE, MEDICAID, SELFPAY ==
--- NOTE | 2023-06-11 | EST_ITS ---
Patient Info Name: Abel Pike Age: 77 years : 1945 Gender: Male Ht: 60 in Wt: 170 lbs BSA: 1.84 m2 HR: 69 bpm BP: 183 / 91 mmHg Heart Rhythm: Sinus Rhythm Exam Date: 06/11/2023 9:32 AM Exam Location: Echo Lab Patient Status: Outpatient Admit Date: 06/11/2023 Staff Ordering Physician: Mathew Plummer MD Attending Provider: Mathew Plummer MD Exercise Technologist: Samantha Cedeno CT Nurse: Abbey Hanna APN Exam Type: CA stress peggy w NM Study Info Indications I50.20 - Unspecified systolic (congestive) heart failure A regadenoson stress test was performed. Summary 1. Please correlate with nuclear medicine images, reported separately. 2. No abnormal ST-T wave changes with lexiscan. 3. Supervise and interpreting physicians Dr. Corby Hardin. Protocol: Lexiscan Stress ECG Details Stage: REST Duration (min): 3 min : 27 sec HR (bpm): 60 SBP (mmHg): 185 DBP (mmHg): 91 Stage: REST Duration (min): 7 min : 35 sec HR (bpm): 57 SBP (mmHg): 185 DBP (mmHg): 91 Stage: STAGE 1 Duration (min): 0 min : 59 sec HR (bpm): 62 SBP (mmHg): 189 DBP (mmHg): 69 Stage: RECOVERY Duration (min): 1 min : 0 sec HR (bpm): 69 SBP (mmHg): 189 DBP (mmHg): 69 Stage: RECOVERY Duration (min): 2 min : 0 sec HR (bpm): 68 SBP (mmHg): 189 DBP (mmHg): 69 Stage: RECOVERY Duration (min): 3 min : 0 sec HR (bpm): 67 SBP (mmHg): 160 DBP (mmHg): 65 Stage: RECOVERY Duration (min): 3 min : 42 sec HR (bpm): 67 SBP (mmHg): 160 DBP (mmHg): 65 Rest HR: 57 bpm Peak HR: 70 bpm Rest Sys BP: 185 mmHg Peak Sys BP: 189 mmHg Max Pred HR: 145 bpm % Max Pred HR: 48 % Target HR: 123 bpm Max RPP: 13,230 bpm*mmHg Target HR Summary: Hemodynamic response to exercise was normal BP Response: Normal blood pressure response Termination Reason: Completed protocol Cardiac Symptoms: None Total Time: 1 min : 0 sec Rest Alcantar BP: 91 mmHg Peak Alcantar BP: 69 mmHg Total Dose: 0.4 mg Resting ECG Normal sinus rhythm. Ventricular couplet. Left anterior fascicular block. Cannot rule out septal CT. Meets criteria for left ventricular hypertrophy. LVH. Stress ECG No abnormal ST/T wave changes with exercise. Arrhythmias Frequent PVCs. Report Signatures
--- NOTE | ~2023-06-11 | NM_ITS ---
EXAMINATION: NM peggy stress w perfusion DATE: 06/11/2023 10:24 INDICATION: Systolic and diastolic congestive heart failure. TECHNIQUE: Rest images were obtained following intravenous administration of 9.4 mCi Tc99m tetrofosmi n (Myoview). The patient was infused intravenously with Lexiscan (Regadenoson). Then, 30.9 mCi Tc99m tetrofosmin (Myoview) was administered intravenously, and stress images were obtained. Patient was un able to tolerate prone positioning. Data was reconstructed into short axis and horizontal and vertica l long axis SPECT images. Gated SPECT images were also obtained. COMPARISON: None. FINDINGS: There is a fixed perfusion defect along the mid and basilar inferior wall which could repre sent either infarct or diaphragmatic attenuation artifact. Mild largely reversible perfusion defect c onsistent with ischemia involving the apical, apical and mid anterior, apical lateral, mid anterolate ral, mid and basilar inferolateral segments consistent with ischemia such with small superimposed reg ions of nonreversible infarct. There is left ventricular enlargement with calculated end-diastolic vo lume of 205 mL. Mild global hypokinesis resulting in mild to moderately decreased left ventricular ej ection fraction of 35%. IMPRESSION: 1. Large region of mild, largely reversible ischemia in the left anterior descending and circumflex c oronary artery vascular distributions potentially with superimposed small regions of mild nonreversib le infarct. 2. Moderate to severe decreased activity along the inferior wall on both rest and stress images which could represent either infarct or diaphragmatic attenuation artifact. 3. Left ventricular enlargement with mild to moderately decreased left ventricular ejection fraction measuring 35%. Reviewed, dictated and finalized at location A. S AND MERCHANDISING REPRESENTATIVE IMPRESSION: 1. Large region of mild, largely reversible ischemia in the left anterior desce nding and circumflex coronary artery vascular distributions potentially with eubanks perimposed small regions of mild nonreversible infarct. 2. Moderate to severe decreased activity along the inferior wall on both rest a nd stress images which could represent either infarct or diaphragmatic attenuat ion artifact. 3. Left ventricular enlargement with mild to moderately decreased left ventricu lar ejection fraction measuring 35%.
== END 2023-06-11 08:34 | disposition home or self-care (01) ==
PROVIDERS: PCP Family Medicine Adolescent Medicine; Visit Provider Internal Medicine Cardiovascular Disease
DX: I50.42 Chronic combined systolic (congestive) and diastolic (congestive) heart failure (principal)
CPT/HCPCS: 78452; 93017; A9502; J2785

== ENCOUNTER 2023-12-28 15:56 | Emergency (ER) | payer MEDICARE, MEDICAID, SELFPAY ==
[2023-12-28] VITALS (30 sets, daily range): BP systolic 168–205; BP diastolic 76–141; PULSE 78–97; RESP 8–24; TEMP 36.6–36.9; O2SAT 89–100
--- NOTE | ~2023-12-28 | XR_ITS ---
EXAMINATION: XR chest 2V Exam Date/Time: 12/28/2023 16:39 CDT HISTORY: gen weakness Comparison: 07/31/2022. RESULT: Lines, tubes, and devices: Left axillary vascular stent. Coronary artery stent. Lungs and pleura: Clear. Cardiomediastinal silhouette: Stable. Other: No acute osseous or upper abdominal finding. IMPRESSION: No acute cardiopulmonary process. Reviewed, dictated and finalized at location K.
--- NOTE | ~2023-12-28 | CT_ITS ---
EXAMINATION: CTA brain carotid DATE: 12/28/2023 20:04 INDICATION: fall, weakness, RLE weak TECHNIQUE: Computed tomographic angiography (CTA) of the head was performed without and with 100 mL O mnipaque-350 intravenous contrast. CTA of the neck was performed with intravenous contrast. Automated exposure control and iterative reconstruction technique were employed. The dose-length product was 2 041.68 mGy-cm. Maximum intensity projection and volume rendered 3D-reconstructions were created by johnathan waller technologist on a separate workstation. COMPARISON: None. FINDINGS: CT BRAIN: No acute large vessel infarct, intracranial hemorrhage, mass, or hydrocephalus. Moderate atrophy and chronic white matter change. Atherosclerotic intracranial calcification. Bilateral lens replacements. 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 Left ethmoid mucosal t hickening, the remaining aerated spaces are clear. CTA HEAD: No large vessel occlusion, aneurysm, high flow vascular malformation, nidus or extravasation. Moderat e bilateral cavernous carotid calcification. Moderate short segment stenoses in the distal bilateral posterior cerebral arteries. CTA NECK: Aortic arch and proximal great vessels: Moderate arch calcification. Normal arch anatomy. Right common carotid, carotid bifurcation, and internal carotid artery: Moderate calcified and noncal cified plaque at the bifurcation. Distal internal carotid artery wall calcification.There is 47% sten osis of the proximal right internal carotid artery relative to normal distal artery lumen diameter (N ASCET criteria). Left common carotid, carotid bifurcation, and internal carotid artery: Severe calcified and noncalcif ied plaque at the bifurcation.There is 77% stenosis of the proximal left internal carotid artery rela tive to normal distal artery lumen diameter (NASCET criteria). Vertebral arteries: No significant plaque or stenosis. Right vertebral artery is dominant, Other findings: Multilevel cervical spine degenerative disc disease. IMPRESSION: No acute intracranial process. No large vessel intracranial occlusion, high-grade intracranial stenosis, or aneurysm. Severe stenosis of the proximal left internal carotid artery. No carotid occlusion or dissection. No vertebral artery occlusion, dissection, or significant stenosis. Reviewed, dictated and finalized at location K. IMPRESSION: No acute intracranial process. No large vessel intracranial occlusion, high-grade intracranial stenosis, or an eurysm. Severe stenosis of the proximal left internal carotid artery. No carotid occlus ion or dissection. No vertebral artery occlusion, dissection, or significant stenosis.
--- NOTE | 2023-12-28 16:10 | ECG_ITS ---
Test Date: 2023-12-28 17:10:43 Measurements Intervals [place] Rate: 83 P: 0 AL: 0 QRS: -30 QRSD: 125 T: 99 QT: 381 QTc: 448 Interpretive Statements ATRIAL FIBRILLATION WITH ABERRANT CONDUCTION OR VENTRICULAR PREMATURE COMPLEXES BORDERLINE LEFT AXIS DEVIATION [QRS AXIS < -20] MODERATE INTRAVENTRICULAR CONDUCTION DELAY [110+ ms QRS DURATION] NONSPECIFIC ST & T-WAVE ABNORMALITY No previous ECG available for comparison Electronically Signed On 12-29-2023 08:51:10 CDT by John Mcnair M.D.
[2023-12-28 17:06] LABS: Basophils Percent Auto 0.5 % (0.2-1.2); Eosinophils Absolute Auto 0.5 K/mm3 (0-0.3); Eosinophils Percent Auto 7.8 % (0-4.4); Hematocrit 32.3 % (42.0-52.0); Hemoglobin 10.3 g/dL (14.0-18.0); Immature Granulocyte Absolute 0.02 K/mm3 (0.00-0.031); Immature Granulocyte Percent A 0.3 % (0-0.5); Immature Platelet Fraction Pct 1.1 % (0.9-11.2); Lymphocytes Absolute Auto 0.89 K/mm3 (0.9-3.2); Lymphocytes Percent Auto 14.4 % (18.3-44.2); Mean Corpuscular HGB Conc 31.9 g/dl (32-36); Mean Corpuscular Hemoglobin 30.1 pg (26-34); Mean Corpuscular Volume 94.4 fl (80-100); Mean Platelet Volume 9.1 fl (7.4-10.4); Monocytes Absolute Auto 0.7 K/mm3 (0.1-0.6); Monocytes Percent Auto 11.4 % (2.6-8.5); Neutrophils Percent Auto 65.6 % (45.5-73.1); Platelet Count Result 105 k/mm3 (150-375); Red Blood Count 3.42 M/mm3 (4.6-6.20); Red Cell Distribution Width 16.1 % (11.5-14.5); White Blood Count 6.2 K/mm3 (4.5-10.0)
[2023-12-28 17:19] LABS: Alanine Aminotransferase 23 U/L (6-50); Albumin Level 3.7 g/dL (3.5-5.1); Alkaline Phosphatase 108 U/L (38-126); Anion Gap 10 mmol/L (4-12); Aspartate Amino Transferase 23 U/L (17-59); Bilirubin,Total 0.3 mg/dL (0.2-1.3); Blood Urea Nitrogen 35 mg/dL (9-20); Calcium 9.1 mg/dL (8.4-10.2); Carbon Dioxide 33 mmol/L (22-30); Chloride 93 mmol/L (98-107); Estimated CRCL calculation 18 ml/min; Estimated Glomerular Filt Rate 18; Glucose 193 mg/dL (65-110); Potassium 3.4 mmol/L (3.4-5.0); Sodium 136 mmol/L (137-145)
--- NOTE | 2023-12-28 18:08 | ED.WEAKNESS ---
HPI - Weakness General Chief complaint: Weakness Stated complaint: weakness Time Seen by Provider: 12/28/23 17:30 History of Present Illness HPI Narrative: This is a 78-year-old male with a past medical history significant for end-stage renal disease on hemodialysis Thursday, Thursday, Thursday. He has a history of type 2 diabetes, chronic atrial fibrillation on Eliquis. Today sustained a fall while at home. He states he woke up feeling generally weak and was actually noticing more weakness on his right side than his left. He states has a history of right lower extremity weakness that got worse when he woke up this morning. He went to dialysis and without any issues and states that they completed a full run and during the session at around 10:00 a.m. he started noticing that he had some tingling in his right arm and hand. His dialysis access is left AV graft. He states he went home afterwards and was feeling more weak and sustained a ground level fall without head trauma or loss of consciousness. He was trying to get out of his wheelchair when this happened. He pressed his Life Alert and EMS arrived to assist him. Presently patient states he feels generalized weakness and some additional extra weakness in his right lower extremity compared to left. He is adamant that he woke up with these symptoms and normally has some weakness in his right side baseline without any history of strokes. He states he last felt at his baseline normal when he went to bed last night an undetermined time. Presently is denying any headache, vision changes, nausea, vomiting, chest pain, shortness a breath, back pain, fever, chills. Related Data Home Medications Medication Instructions Recorded Confirmed cholecalciferol (vitamin D3) 50 50 mcg PO BID 01/10/22 12/10/23 mcg (2,000 unit) tablet ferrous sulfate 325 mg (65 mg 325 mg PO BID 01/10/22 12/10/23 iron) tablet (Iron (ferrous sulfate)) apixaban 5 mg tablet (Eliquis) 5 mg PO BID 01/11/22 12/10/23 clopidogrel 75 mg tablet 75 mg PO DAILY 12/10/23 12/10/23 Allergies Allergy/AdvReac Type Severity Reaction Status Date / Time Sulfa (Sulfonamide Allergy Unknown Unknown,Jeancarlos Verified 12/10/23 09:20 Antibiotics) h sitagliptin [From Ziauvismael] Allergy Rash Verified 12/10/23 09:20 Review of Systems Review of Systems: As reviewed above in [facility] Past Medical History Medical History Allergic rhinitis Anemia of chronic disease Atrial fibrillation cardoversion 12/27/21 Chronic sinusitis Combined systolic and diastolic congestive heart failure Echocardiogram 10/2021: Mild concentric left ventricular hypertrophy, moderate left ventricular enlargement, moderate global left ventricular systolic dysfunction with EF of 30%, diastolic dysfunction, severe left atrial enlargement, mild right atrial enlargement, mild aortic valve regurgitation, moderate pulmonary hypertension with RVSP of 53, moderate tricuspid regurgitation 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 Dubois History of prostate cancer Hyperlipidemia Orthostatic hypotension Pneumonia due to COVID-19 virus Polymyalgia rheumatica Presbycusis, bilateral Pulmonary hypertension Secondary hyperparathyroidism of renal origin Ulcer Surgical History Surgical History Status post cataract extraction of both eyes with insertion of intraocular lens Status post creation of arteriovenous fistula Left upper arm Family History Family History Father Lung cancer Daughter Chronic lung disease Morbid obesity Grandparent Asthma Mother Hypertensio
[2023-12-28] MEDS: SODIUM CHLORIDE 0.9% IV 1,000 ML 999 ML IV CONT (18:24)
[2023-12-28 19:18] LABS: Troponin I 0.037 ng/mL (0.000-0.034)
--- NOTE | 2023-12-28 19:29 | ECG_ITS ---
Test Date: 2023-12-28 20:21:04 Measurements Intervals [place] Rate: 82 P: 0 LA: 0 QRS: -32 QRSD: 116 T: 77 QT: 380 QTc: 446 Interpretive Statements ATRIAL FIBRILLATION WITH ABERRANT CONDUCTION OR VENTRICULAR PREMATURE COMPLEXES LEFT AXIS DEVIATION [QRS AXIS < -30] MODERATE INTRAVENTRICULAR CONDUCTION DELAY [110+ ms QRS DURATION] NONSPECIFIC T-WAVE ABNORMALITY Compared to ECG 12/28/2023 17:10:43 No significant changes Electronically Signed On 12-29-2023 08:53:19 CDT by John Mcnair M.D.
[2023-12-28] MEDS: ASPIRIN 325 MG TABLET PO (20:36)
[2023-12-28] MEDS: carvediloL 12.5 MG TABLET PO (21:15)
[2023-12-29] VITALS (29 sets, daily range): BP systolic 154–190; BP diastolic 57–94; PULSE 72–86; RESP 12–30; TEMP 36.4–36.6; O2SAT 96–100
[2023-12-29 00:01] LABS: Add Urine Microscopic? YES; Appearance Urine Clear (Clear); Bacteria Urine None Seen /hpf; Bilirubin Urine Negative (Negative); Blood Urine Trace (Negative); Color Urine Yellow (Yellow); Glucose Urine UA Trace mg/dL (Negative); Ketones Urine Negative (Negative); Leukocyte Esterase Ur 3+ LEU/UL (Negative); Nitrate Urine Negative (Negative); Non Pathogenic Casts 0-2; Protein Urine 2+ mg/dL (Negative); RBC Urine 0-2 /hpf (0-2); Specific Grav Ur 1.009 (1.001-1.035); Squamous Epithelial Cell Urine None Seen /hpf (Few); Urobilinogen Urine 0.2 mg/dL (<2.0); WBC Urine 51-100 /hpf (0-3)
[2023-12-29 00:28] LABS: Troponin I 0.038 ng/mL (0.000-0.034)
--- NOTE | 2023-12-29 03:33 | PC.NURSE ---
Called [facility] at [phone]. At this time patient still waiting on a bed.
--- NOTE | 2023-12-29 06:23 | PC.NURSE ---
Called [facility] transfer center at [phone]. At this time patient still waiting on a bed, called back later today for a update.
[2023-12-29] MEDS: carvediloL 12.5 MG TABLET PO ×2 (11:32→21:27)
--- NOTE | 2023-12-29 22:13 | ECG_ITS ---
Test Date: 2023-12-29 22:18:16 Measurements Intervals [place] Rate: 78 P: 0 W[place]: 0 QRS: -35 QRSD: 112 T: 80 QT: 376 QTc: 429 Interpretive Statements ATRIAL FIBRILLATION WITH ABERRANT CONDUCTION OR VENTRICULAR PREMATURE COMPLEXES LEFT AXIS DEVIATION [QRS AXIS < -30] MODERATE INTRAVENTRICULAR CONDUCTION DELAY [110+ ms QRS DURATION] NONSPECIFIC T-WAVE ABNORMALITY Compared to ECG 12/28/2023 20:21:04 No significant changes Electronically Signed On 12-30-2023 09:27:47 CDT by John Mcnair M.D.
--- NOTE | 2023-12-29 22:46 | PC.NURSE ---
[facility] called for update on pt status and updated VS. This RN and DOUG Hernandez changed hospital bed as bed pt was on not properly working. Pt depend and linen changed and pt placed on commode. Male purewick placed on pt. Call light within reach. Lights dimmed.
[2023-12-30] VITALS (53 sets, daily range): BP systolic 149–190; BP diastolic 62–117; PULSE 72–88; RESP 12–22; TEMP 36.8; O2SAT 93–100
[2023-12-30] MEDS: AMOXICILLIN 500 MG CAPSULE PO ×2 (00:06→09:53)
[2023-12-30 07:56] LABS: Basophils Percent Auto 0.4 % (0.2-1.2); Eosinophils Absolute Auto 0.5 K/mm3 (0-0.3); Eosinophils Percent Auto 7.2 % (0-4.4); Hematocrit 32.4 % (42.0-52.0); Hemoglobin 10.2 g/dL (14.0-18.0); Immature Granulocyte Absolute 0.02 K/mm3 (0.00-0.031); Immature Granulocyte Percent A 0.3 % (0-0.5); Lymphocytes Absolute Auto 0.88 K/mm3 (0.9-3.2); Lymphocytes Percent Auto 12.7 % (18.3-44.2); Mean Corpuscular HGB Conc 31.5 g/dl (32-36); Mean Corpuscular Volume 95.3 fl (80-100); Mean Platelet Volume 9.5 fl (7.4-10.4); Monocytes Absolute Auto 0.7 K/mm3 (0.1-0.6); Monocytes Percent Auto 10.5 % (2.6-8.5); Neutrophils Absolute Auto 4.8 K/mm3 (1.3-6.7); Neutrophils Percent Auto 68.9 % (45.5-73.1); Platelet Count Result 110 k/mm3 (150-375); Red Cell Distribution Width 16.4 % (11.5-14.5); White Blood Count 6.9 K/mm3 (4.5-10.0)
[2023-12-30 08:06] LABS: Alanine Aminotransferase 17 U/L (6-50); Albumin Level 3.5 g/dL (3.5-5.1); Alkaline Phosphatase 86 U/L (38-126); Anion Gap 11 mmol/L (4-12); Aspartate Amino Transferase 28 U/L (17-59); Bilirubin,Total 0.5 mg/dL (0.2-1.3); Blood Urea Nitrogen 57 mg/dL (9-20); Calcium 8.8 mg/dL (8.4-10.2); Carbon Dioxide 26 mmol/L (22-30); Chloride 99 mmol/L (98-107); Estimated CRCL calculation 12 ml/min; Estimated Glomerular Filt Rate 11; Glucose 112 mg/dL (65-110); Potassium 4.1 mmol/L (3.4-5.0); Sodium 136 mmol/L (137-145)
[2023-12-30] MEDS: carvediloL 12.5 MG TABLET PO (09:53)
--- NOTE | 2023-12-30 09:58 | PC.NURSE ---
Updated [facility] about patient status. no bed still at this time.
--- NOTE | 2023-12-30 14:32 | PC.NURSE ---
Spoke with [facility] transfer line. States maybe a bed this afternoon after discharges
--- NOTE | 2023-12-30 15:56 | PC.NURSE ---
Received call from Transfer line at [place]. Gave transfer nurse last set of vitals on patient. Received bed assignment of [id number] on vascular floor.
--- NOTE | 2023-12-30 16:19 | PC.NURSE ---
Gave report to GITA Swanson at [place] at [phone] by this RN
--- NOTE | 2023-12-30 18:26 | PC.NURSE ---
[facility] arrives to ED at this time to transfer patient to [place]. Chart Printed and sent with EMS.
== END 2023-12-30 18:42 | disposition short-term general hospital (02) ==
PROVIDERS: Emergency Medicine; Student in an Organized Health Care Education/Training Program; Emergency Provider Emergency Medicine; PCP Family Medicine Adolescent Medicine
DX: I65.29 Occlusion and stenosis of unspecified carotid artery (principal); M62.81 Muscle weakness (generalized); R20.2 Paresthesia of skin; I48.20 Chronic atrial fibrillation, unspecified; E11.22 Type 2 diabetes mellitus with diabetic chronic kidney disease; I13.2 Hypertensive heart and chronic kidney disease with heart failure and with stage 5 chronic kidney disease, or end stage renal disease; I50.82 Biventricular heart failure; N18.6 End stage renal disease; Z79.01 Long term (current) use of anticoagulants; Z99.2 Dependence on renal dialysis
CPT/HCPCS: 36415; 70496; 70498; 71046; 80053; 81001; 84484; 85025; 85055; 87077; 87086; 87088; 87181; 93005; 96360; 99285; A9270; J7030; Q9967

== ENCOUNTER 2024-07-18 20:16 | Emergency (ER) | payer MEDICAID, OTHER, SELFPAY ==
[2024-07-18 20:16] VITALS: BP 172/75; PULSE 84; RESP 18; TEMP 36.9; O2SAT 100
[2024-07-18 21:23] VITALS: PULSE 88
[2024-07-18 21:24] VITALS: O2SAT 98
[2024-07-18 21:31] LABS: Hemoglobin 10.4 g/dL (14.0-18.0); Immature Platelet Fraction Pct 1.3 % (0.9-11.2); Mean Corpuscular HGB Conc 31.5 g/dl (32-36); Mean Corpuscular Hemoglobin 28.8 pg (26-34); Mean Corpuscular Volume 91.4 fl (80-100); Mean Platelet Volume 9.7 fl (7.4-10.4); Platelet Count Result 83 k/mm3 (150-375); Red Blood Count 3.61 M/mm3 (4.6-6.20); Red Cell Distribution Width 16.1 % (11.5-14.5); White Blood Count 5.6 K/mm3 (4.5-10.0)
[2024-07-18 21:39] LABS: Alanine Aminotransferase 17 U/L (6-50); Albumin Level 3.5 g/dL (3.5-5.1); Alkaline Phosphatase 114 U/L (38-126); Anion Gap 9 mmol/L (4-12); Aspartate Amino Transferase 19 U/L (17-59); Bilirubin,Total 0.4 mg/dL (0.2-1.3); Blood Urea Nitrogen 46 mg/dL (9-20); Calcium 9.2 mg/dL (8.4-10.2); Carbon Dioxide 32 mmol/L (22-30); Chloride 95 mmol/L (98-107); Estimated CRCL calculation 18 ml/min; Estimated Glomerular Filt Rate 18; Glucose 128 mg/dL (65-110); Lactic Acid Reflex 0.7 mmol/L (0.7-2.0); Magnesium 2.3 mg/dL (1.6-2.3); Potassium 3.9 mmol/L (3.4-5.0); Sodium 136 mmol/L (137-145)
[2024-07-18 21:53] LABS: Troponin I 0.042 ng/mL (0.000-0.034)
[2024-07-18 22:03] LABS: Band Neutrophils Percent 1 % (0-6); Eosinophils Absolute Manual 0.44 K/mm3 (0.02-0.50); Eosinophils Percent Manual 8 % (0-4); Lymphocytes Absolute Manual 0.33 K/mm3 (1.1-4.5); Monocytes Absolute Manual 0.33 K/mm3 (0.1-0.90); Monocytes Percent Manual 6 % (3-9); Neutrophils Absolute Manual 4.48 K/mm3 (1.3-6.7); Neutrophils Percent Manual 79 % (46-73); Platelet Estimate Decreased (Adequate); Total Cells Counted 100
[2024-07-18 22:04] LABS: Anisocytosis 2+; Hypochromasia 1+; Schistocytes None Seen
[2024-07-18 22:05] LABS: Influenza A QL RT-PCR Negative (Negative); Influenza B QL RT-PCR Negative (Negative); RSV RNA, RT-PCR Negative (Negative); SARS-CoV-2 RNA PCR Negative (Negative)
--- NOTE | 2024-07-18 23:41 | ED.GENADULT ---
HPI - General Adult General Chief complaint: Weakness Stated complaint: GENERALIZED WEAKNES, FALL Time Seen by Provider: 07/18/24 20:21 History of Present Illness HPI narrative: Patient is a 78-year-old gentleman presents emergency department with chief complaint of syncopal episode. The patient has history of atrial fibrillation and end-stage renal disease on dialysis. The patient went to dialysis today and reports he was at home got up felt lightheaded and fell to the ground the patient did have 1 episode of nausea vomiting afterwards when patient states currently feels fine and was not having any pain afterwards. Related Data Home Medications ?Medication ?Instructions ?Recorded ?Confirmed ?Last Taken ?Type ferrous sulfate 325 mg (65 mg 325 mg PO BID 01/10/22 01/21/24 07/31/22 21:00 History iron) tablet (Iron (ferrous sulfate)) apixaban 5 mg tablet (Eliquis) 5 mg PO BID 01/11/22 01/21/24 07/31/22 21:00 History clopidogrel 75 mg tablet 75 mg PO DAILY 12/10/23 01/21/24 Unknown History loratadine 10 mg capsule 10 mg PO EVERY OTHER DAY 01/06/24 01/21/24 Unknown History rosuvastatin 10 mg tablet 10 mg PO DAILY 01/06/24 01/21/24 Unknown History coenzyme [id number] E 100 mg-100 cap PO 01/21/24 01/21/24 Unknown History unit capsule Allergies Allergy/AdvReac Type Severity Reaction Status Date / Time Sulfa (Sulfonamide Allergy Unknown Rash,Unknow Unverified 01/21/24 10:53 Antibiotics) n,Unknown,R isaiah sitagliptin (From [facility]) Allergy Rash Verified 01/21/24 08:26 Tea Allergy Nausea and Uncoded 01/21/24 08:26 Vomiting Review of Systems Review of Systems: A 10 system review of systems was completed on the patient and is negative except for what is stated in the HPI. Nursing and ancillary documentation was reviewed. [facility] Past Medical History Medical History Acute CVA (cerebrovascular accident) (12/2023) Diabetic neuropathy Diabetic retinopathy Pulmonary hypertension Combined systolic and diastolic congestive heart failure Echocardiogram 10/2021: Mild concentric left ventricular hypertrophy, moderate left ventricular enlargement, moderate global left ventricular systolic dysfunction with EF of 30%, diastolic dysfunction, severe left atrial enlargement, mild right atrial enlargement, mild aortic valve regurgitation, moderate pulmonary hypertension with RVSP of 53, moderate tricuspid regurgitation End-stage renal disease Hemodialysis started June 2022; managed by Dr. 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 Abnormal thumb on the left hand Anemia of chronic disease Pneumonia due to COVID-19 virus Allergic rhinitis Chronic sinusitis Eczema Ulcer Hyperlipidemia COVID-19 10/04 and 08/01/2022 Surgical History Surgical History Status post creation of arteriovenous fistula Left upper arm Status post cataract extraction of both eyes with insertion of intraocular lens Family History Family History Father Lung cancer Daughter Chronic lung disease Morbid obesity Grandparent Asthma Mother Hypertension Other Diabetes mellitus Heart disease Malignant neoplasm of prostate Social History Social History Social History: The patient is and lives with his of 47 years. He is a lifelong nonsmoker. He did chew tobacco. Primary care physician: Dr. Srikanth Danielson Code status: Full code Surrogate decision maker: Smoking status: Never smoker Smokeless tobacco user: chewing tobacco Second hand tobacco smoke exposure: No Alcohol intake: former Alcohol use details: He reports that he drank heavily until 1975 when he found Jovani. Substance use: never Substance use type: does not use Do You Feel Safe in your Home?: Yes Lack of Transportation: No Lack of Food: Never True Current Housing: I Have Housing Concerned About Future Housing: No Difficulty Paying Gas/Electric Bills: No Difficulty Paying for Meds: No Currently Unemployed: No Education: Decline to Answer Difficulty w/ Childcare or Family Care: No Living arrangements: with family Additional living arrangements comments: He lives in [place] with his of 47 years. He has total of 6 children 5 of which are still living and her relatively healthy. He had 1 daughter who of morbid obesity and chronic lung disease. 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 Gender identity (if verbalized by the patient): Male Sexual Orientation (if Verbalized by the Patient): Straight or Heterosexual Spiritual care concerns: No Agree to blood products: Yes Exam Narrative: GENERAL: Well-appearing, well-nourished, and in no acute distress. HEAD: Normocephalic, atraumatic. EYES: PERRLA and EOMI. ENT: Nares clear, no rhinorrhea or epistaxis. Mucous membranes moist. NECK: Supple. CHEST: Clear to auscultation. No respiratory distress. HEART: Regular rate and rhythm. No murmur heard. Normal peripheral pulses. ABDOMEN: Soft, nontender, nondistended, normal active bowel sounds. EXTREMITIES: Normal range of motion. No edema. SKIN: Warm, dry, no rash. NEURO: No focal deficits. Alert and oriented x3. PSYCH: Normal mood and affect. Course Vital Signs Vital signs: Vital Signs Temperature 36.9 C 07/18/24 20:16 Pulse Rate 84 07/18/24 20:16 Respiratory Rate 18 07/18/24 20:16 Blood Pressure 172/75 H 07/18/24 20:16 Pulse Oximetry 100 07/18/24 20:16 Oxygen Delivery Nasal Cannula 07/18/24 20:16 Oxygen Flow Rate 2 07/18/24 20:16 Temperature 36.9 C 07/18/24 20:16 Pulse Rate 90 07/19/24 01:45 Respiratory Rate 20 07/18/24 23:55 Blood Pressure 143/82 H 07/19/24 01:45 Pulse Oximetry 98 07/18/24 23:55 Oxygen Delivery Room Air 07/18/24 21:24 Oxygen Flow Rate 2 07/18/24 20:16 Medical Decision Making [facility] Narrative Medical decision making narrative: Differential diagnosis includes vasovagal syncope, post dialysis fluid and electrolyte shift Laboratory studies were obtained on the patient showed normal CBC CMP showed a creatinine of 3.41 potassium 3.9 troponin was flat COVID flu RSV were negative CT head and chest x-ray were negative The patient is feeling better 0 be discharged home to follow-up with his primary care Vital Signs Vital Signs: Vital Signs Temperature 36.9 C 07/18/24 20:16 Pulse Rate 84 07/18/24 20:16 Respiratory Rate 18 07/18/24 20:16 Blood Pressure 172/75 H 07/18/24 20:16 Pulse Oximetry 100 07/18/24 20:16 Oxygen Delivery Nasal Cannula 07/18/24 20:16 Oxygen Flow Rate 2 07/18/24 20:16 Temperature 36.9 C 07/18/24 20:16 Pulse Rate 90 07/19/24 01:45 Respiratory Rate 20 07/18/24 23:55 Blood Pressure 143/82 H 07/19/24 01:45 Pulse Oximetry 98 07/18/24 23:55 Oxygen Delivery Room Air 07/18/24 21:24 Oxygen Flow Rate 2 07/18/24 20:16 Lab Data 07/18/24 21:20 07/18/24 21:20 Labs: Lab Results 07/18/24 07/18/24 07/18/24 Range/Units 21:20 21:20 21:20 WBC 5.6 (4.5-10.0) K/mm3 RBC 3.61 L (4.6-6.20) M/mm3 Hgb 10.4 L (14.0-18.0) g/dL Hct 33.0 L (42.0-52.0) % MCV 91.4 (80-100) fl MCH 28.8 (26-34) pg MCHC 31.5 L (32-36) g/dl RDW 16.1 H (11.5-14.5) % Plt Count 83 L D (150-375) k/mm3 MPV 9.7 (7.4-10.4) fl Immature Gran % (Auto) Not Reportable Neut % (Auto) Not Reportable Lymph % (Auto) Not Reportable Victoria % (Auto) Not Reportable Eos % (Auto) Not Reportable Baso % (Auto) Not Reportable Lymph # (Auto) Not Reportable Victoria # (Auto) Not Reportable Eos # (Auto) Not Reportable Baso # (Auto) Not Reportable Abs Immat Gran (auto) Not Reportable Absolute Neuts (auto) Not Reportable Absolute Nucleated RBC Not Reportable Total Counted 100 Neutrophils % (Manual) 79 H (46-73) % Band Neutrophils % 1 (0-6) % Lymphocytes % (Manual) 6.0 L (18-44) % Monocytes % (Manual) 6 (3-9) % Eosinophils % (Manual) 8 H (0-4) % Nucleated RBC % Not Reportable Abs Neuts (Manual) 4.48 (1.3-6.7) K/mm3 Abs Lymphs (Manual) 0.33 L (1.1-4.5) K/mm3 Abs Monocytes (Manual) 0.33 (0.1-0.90) K/mm3 Absolute Eos (Manual) 0.44 (0.02-0.50) K/mm3 Platelet Estimate Decreased (Adequate) % Immature Plt Fraction 1.3 (0.9-11.2) % Hypochromasia 1+ Anisocytosis 2+ Schistocytes None seen Sodium Cancelled 136 L Potassium Cancelled 3.9 Chloride Cancelled Carbon Dioxide Anion Gap BUN Creatinine Estim Creat Clear Calc Estimated GFR Glucose Lactic Acid (0.7-2.0) mmol/L Calcium Magnesium (1.6-2.3) mg/dL Total Bilirubin AST ALT Alkaline Phosphatase Troponin I (0.000-0.034) ng/mL Total Protein Albumin Influenza A (RT-PCR) (Negative) Influenza B (RT-PCR) (Negative) RSV (RT-PCR) (Negative) SARS-CoV-2 RNA (RT-PCR) (Negative) 07/18/24 07/18/24 07/18/24 Range/Units 21:20 21:20 21:20 WBC (4.5-10.0) K/mm3 RBC (4.6-6.20) M/mm3 Hgb (14.0-18.0) g/dL Hct (42.0-52.0) % MCV (80-100) fl MCH (26-34) pg MCHC (32-36) g/dl RDW (11.5-14.5) % Plt Count (150-375) k/mm3 MPV (7.4-10.4) fl Immature Gran % (Auto) Neut % (Auto) Lymph % (Auto) Victoria % (Auto) Eos % (Auto) Baso % (Auto) Lymph # (Auto) Victoria # (Auto) Eos # (Auto) Baso # (Auto) Abs Immat Gran (auto) Absolute Neuts (auto) Absolute Nucleated RBC Total Counted Neutrophils % (Manual) (46-73) % Band Neutrophils % (0-6) % Lymphocytes % (Manual) (18-44) % Monocytes % (Manual) (3-9) % Eosinophils % (Manual) (0-4) % Nucleated RBC % Abs Neuts (Manual) (1.3-6.7) K/mm3 Abs Lymphs (Manual) (1.1-4.5) K/mm3 Abs Monocytes (Manual) (0.1-0.90) K/mm3 Absolute Eos (Manual) (0.02-0.50) K/mm3 Platelet Estimate (Adequate) % Immature Plt Fraction (0.9-11.2) % Hypochromasia Anisocytosis Schistocytes Sodium Potassium Chloride 95 L Carbon Dioxide Cancelled 32 H Anion Gap Cancelled 9 BUN Cancelled Creatinine Estim Creat Clear Calc Estimated GFR Glucose Lactic Acid (0.7-2.0) mmol/L Calcium Magnesium (1.6-2.3) mg/dL Total Bilirubin AST ALT Alkaline Phosphatase Troponin I (0.000-0.034) ng/mL Total Protein Albumin Influenza A (RT-PCR) (Negative) Influenza B (RT-PCR) (Negative) RSV (RT-PCR) (Negative) SARS-CoV-2 RNA (RT-PCR) (Negative) 07/18/24 07/18/24 07/18/24 Range/Units 21:20 21:20 21:20 WBC (4.5-10.0) K/mm3 RBC (4.6-6.20) M/mm3 Hgb (14.0-18.0) g/dL Hct (42.0-52.0) % MCV (80-100) fl MCH (26-34) pg MCHC (32-36) g/dl RDW (11.5-14.5) % Plt Count (150-375) k/mm3 MPV (7.4-10.4) fl Immature Gran % (Auto) Neut % (Auto) Lymph % (Auto) Victoria % (Auto) Eos % (Auto) Baso % (Auto) Lymph # (Auto) Victoria # (Auto) Eos # (Auto) Baso # (Auto) Abs Immat Gran (auto) Absolute Neuts (auto) Absolute Nucleated RBC Total Counted Neutrophils % (Manual) (46-73) % Band Neutrophils % (0-6) % Lymphocytes % (Manual) (18-44) % Monocytes % (Manual) (3-9) % Eosinophils % (Manual) (0-4) % Nucleated RBC % Abs Neuts (Manual) (1.3-6.7) K/mm3 Abs Lymphs (Manual) (1.1-4.5) K/mm3 Abs Monocytes (Manual) (0.1-0.90) K/mm3 Absolute Eos (Manual) (0.02-0.50) K/mm3 Platelet Estimate (Adequate) % Immature Plt Fraction (0.9-11.2) % Hypochromasia Anisocytosis Schistocytes Sodium Potassium Chloride Carbon Dioxide Anion Gap BUN 46 H Creatinine Cancelled 3.41 H Estim Creat Clear Calc Cancelled 18 Estimated GFR Cancelled Glucose Lactic Acid (0.7-2.0) mmol/L Calcium Magnesium (1.6-2.3) mg/dL Total Bilirubin AST ALT Alkaline Phosphatase Troponin I (0.000-0.034) ng/mL Total Protein Albumin Influenza A (RT-PCR) (Negative) Influenza B (RT-PCR) (Negative) RSV (RT-PCR) (Negative) SARS-CoV-2 RNA (RT-PCR) (Negative) 07/18/24 07/18/24 07/18/24 Range/Units 21:20 21:20 21:20 WBC (4.5-10.0) K/mm3 RBC (4.6-6.20) M/mm3 Hgb (14.0-18.0) g/dL Hct (42.0-52.0) % MCV (80-100) fl MCH (26-34) pg MCHC (32-36) g/dl RDW (11.5-14.5) % Plt Count (150-375) k/mm3 MPV (7.4-10.4) fl Immature Gran % (Auto) Neut % (Auto) Lymph % (Auto) Victoria % (Auto) Eos % (Auto) Baso % (Auto) Lymph # (Auto) Victoria # (Auto) Eos # (Auto) Baso # (Auto) Abs Immat Gran (auto) Absolute Neuts (auto) Absolute Nucleated RBC Total Counted Neutrophils % (Manual) (46-73) % Band Neutrophils % (0-6) % Lymphocytes % (Manual) (18-44) % Monocytes % (Manual) (3-9) % Eosinophils % (Manual) (0-4) % Nucleated RBC % Abs Neuts (Manual) (1.3-6.7) K/mm3 Abs Lymphs (Manual) (1.1-4.5) K/mm3 Abs Monocytes (Manual) (0.1-0.90) K/mm3 Absolute Eos (Manual) (0.02-0.50) K/mm3 Platelet Estimate (Adequate) % Immature Plt Fraction (0.9-11.2) % Hypochromasia Anisocytosis Schistocytes Sodium Potassium Chloride Carbon Dioxide Anion Gap BUN Creatinine Estim Creat Clear Calc Estimated GFR 18 L Glucose Cancelled 128 H Lactic Acid 0.7 (0.7-2.0) mmol/L Calcium Cancelled 9.2 Magnesium 2.3 (1.6-2.3) mg/dL Total Bilirubin Cancelled AST ALT Alkaline Phosphatase Troponin I (0.000-0.034) ng/mL Total Protein Albumin Influenza A (RT-PCR) (Negative) Influenza B (RT-PCR) (Negative) RSV (RT-PCR) (Negative) SARS-CoV-2 RNA (RT-PCR) (Negative) 07/18/24 07/18/24 07/18/24 Range/Units 21:20 21:20 21:20 WBC (4.5-10.0) K/mm3 RBC (4.6-6.20) M/mm3 Hgb (14.0-18.0) g/dL Hct (42.0-52.0) % MCV (80-100) fl MCH (26-34) pg MCHC (32-36) g/dl RDW (11.5-14.5) % Plt Count (150-375) k/mm3 MPV (7.4-10.4) fl Immature Gran % (Auto) Neut % (Auto) Lymph % (Auto) Victoria % (Auto) Eos % (Auto) Baso % (Auto) Lymph # (Auto) Victoria # (Auto) Eos # (Auto) Baso # (Auto) Abs Immat Gran (auto) Absolute Neuts (auto) Absolute Nucleated RBC Total Counted Neutrophils % (Manual) (46-73) % Band Neutrophils % (0-6) % Lymphocytes % (Manual) (18-44) % Monocytes % (Manual) (3-9) % Eosinophils % (Manual) (0-4) % Nucleated RBC % Abs Neuts (Manual) (1.3-6.7) K/mm3 Abs Lymphs (Manual) (1.1-4.5) K/mm3 Abs Monocytes (Manual) (0.1-0.90) K/mm3 Absolute Eos (Manual) (0.02-0.50) K/mm3 Platelet Estimate (Adequate) % Immature Plt Fraction (0.9-11.2) % Hypochromasia Anisocytosis Schistocytes Sodium Potassium Chloride Carbon Dioxide Anion Gap BUN Creatinine Estim Creat Clear Calc Estimated GFR Glucose Lactic Acid (0.7-2.0) mmol/L Calcium Magnesium (1.6-2.3) mg/dL Total Bilirubin 0.4 AST Cancelled 19 ALT Cancelled 17 Alkaline Phosphatase Cancelled Troponin I (0.000-0.034) ng/mL Total Protein Albumin Influenza A (RT-PCR) (Negative) Influenza B (RT-PCR) (Negative) RSV (RT-PCR) (Negative) SARS-CoV-2 RNA (RT-PCR) (Negative) 07/18/24 07/18/24 07/18/24 Range/Units 21:20 21:20 21:20 WBC (4.5-10.0) K/mm3 RBC (4.6-6.20) M/mm3 Hgb (14.0-18.0) g/dL Hct (42.0-52.0) % MCV (80-100) fl MCH (26-34) pg MCHC (32-36) g/dl RDW (11.5-14.5) % Plt Count (150-375) k/mm3 MPV (7.4-10.4) fl Immature Gran % (Auto) Neut % (Auto) Lymph % (Auto) Victoria % (Auto) Eos % (Auto) Baso % (Auto) Lymph # (Auto) Victoria # (Auto) Eos # (Auto) Baso # (Auto) Abs Immat Gran (auto) Absolute Neuts (auto) Absolute Nucleated RBC Total Counted Neutrophils % (Manual) (46-73) % Band Neutrophils % (0-6) % Lymphocytes % (Manual) (18-44) % Monocytes % (Manual) (3-9) % Eosinophils % (Manual) (0-4) % Nucleated RBC % Abs Neuts (Manual) (1.3-6.7) K/mm3 Abs Lymphs (Manual) (1.1-4.5) K/mm3 Abs Monocytes (Manual) (0.1-0.90) K/mm3 Absolute Eos (Manual) (0.02-0.50) K/mm3 Platelet Estimate (Adequate) % Immature Plt Fraction (0.9-11.2) % Hypochromasia Anisocytosis Schistocytes Sodium Potassium Chloride Carbon Dioxide Anion Gap BUN Creatinine Estim Creat Clear Calc Estimated GFR Glucose Lactic Acid (0.7-2.0) mmol/L Calcium Magnesium (1.6-2.3) mg/dL Total Bilirubin AST ALT Alkaline Phosphatase 114 Troponin I 0.042 H* (0.000-0.034) ng/mL Total Protein Cancelled 7.0 Albumin Cancelled 3.5 Influenza A (RT-PCR) Negative (Negative) Influenza B (RT-PCR) Negative (Negative) RSV (RT-PCR) Negative (Negative) SARS-CoV-2 RNA (RT-PCR) Negative (Negative) 07/19/24 Range/Units 00:05 WBC (4.5-10.0) K/mm3 RBC (4.6-6.20) M/mm3 Hgb (14.0-18.0) g/dL Hct (42.0-52.0) % MCV (80-100) fl MCH (26-34) pg MCHC (32-36) g/dl RDW (11.5-14.5) % Plt Count (150-375) k/mm3 MPV (7.4-10.4) fl Immature Gran % (Auto) Neut % (Auto) Lymph % (Auto) Victoria % (Auto) Eos % (Auto) Baso % (Auto) Lymph # (Auto) Victoria # (Auto) Eos # (Auto) Baso # (Auto) Abs Immat Gran (auto) Absolute Neuts (auto) Absolute Nucleated RBC Total Counted Neutrophils % (Manual) (46-73) % Band Neutrophils % (0-6) % Lymphocytes % (Manual) (18-44) % Monocytes % (Manual) (3-9) % Eosinophils % (Manual) (0-4) % Nucleated RBC % Abs Neuts (Manual) (1.3-6.7) K/mm3 Abs Lymphs (Manual) (1.1-4.5) K/mm3 Abs Monocytes (Manual) (0.1-0.90) K/mm3 Absolute Eos (Manual) (0.02-0.50) K/mm3 Platelet Estimate (Adequate) % Immature Plt Fraction (0.9-11.2) % Hypochromasia Anisocytosis Schistocytes Sodium Potassium Chloride Carbon Dioxide Anion Gap BUN Creatinine Estim Creat Clear Calc Estimated GFR Glucose Lactic Acid (0.7-2.0) mmol/L Calcium Magnesium (1.6-2.3) mg/dL Total Bilirubin AST ALT Alkaline Phosphatase Troponin I 0.048 H* (0.000-0.034) ng/mL Total Protein Albumin Influenza A (RT-PCR) (Negative) Influenza B (RT-PCR) (Negative) RSV (RT-PCR) (Negative) SARS-CoV-2 RNA (RT-PCR) (Negative) Discharge Plan Discharge Clinical Impression: Syncope Patient Disposition: Home, Self-Care Condition: Stable Instructions: Antibiotic Form, Syncope (ED) Patient Language: Sudanese Prescriptions: No Action clopidogrel 75 mg tablet 75 mg PO DAILY coenzyme [id number] E 100-100 mg-unit capsule PO ferrous sulfate [Iron (ferrous sulfate)] 325 mg (65 mg iron) Tablet 325 mg PO BID Eliquis 5 mg tablet 5 mg PO BID (DME) blood-glucose meter [ZumboxTouch Ultra2 Meter] Kit See Rx Instructions .Route Qty: 1 0RF Rx Instructions: use to check blood sugar qd (DME) OneTouch Ultra Test Strip See Rx Instructions .Route Qty: 100 2RF Rx Instructions: Use one daily to test blood glucose Triphrocaps 1 mg capsule 1 cap PO DAILY Qty: 90 2RF glipizide 5 mg tablet See Rx Instructions .ROUTE .COMPLEX Qty: 180 3RF Dose Instruction: Take 1 tablet by mouth twice daily Rx Instructions: Take 1 tablet by mouth twice daily carvedilol 12.5 mg tablet See Rx Instructions .ROUTE .COMPLEX Qty: 180 0RF Dose Instruction: TAKE 1 TABLET BY MOUTH TWICE DAILY WITH MEALS Rx Instructions: TAKE 1 TABLET BY MOUTH TWICE DAILY WITH MEALS (DME) lancets [ZumboxTouch Delica Plus Lancet] 30 gauge misc See Rx Instructions .ROUTE .COMPLEX Qty: 100 1RF Dose Instruction: USE 1 UNIT TO CHECK GLUCOSE ONCE DAILY Rx Instructions: USE 1 UNIT TO CHECK GLUCOSE ONCE DAILY furosemide 40 mg tablet See Rx Instructions .ROUTE .COMPLEX Qty: 180 1RF Dose Instruction: Take 1 tablet by mouth twice daily Rx Instructions: Take 1 tablet by mouth twice daily rosuvastatin 10 mg Tablet 10 mg PO DAILY loratadine 10 mg Capsule 10 mg PO EVERY OTHER DAY hydralazine 25 mg Tablet 50 mg PO TID 30 Days Qty: 180 0RF cholecalciferol (vitamin D3) 50 mcg (2,000 unit) Tablet 50 mcg PO BID Qty: 30 0RF Follow-up/Referrals: Srikanth Hernandez MD [Primary Care Provider] - Time of Disposition: 02:04
[2024-07-18 23:55] VITALS: BP 154/81; PULSE 91; RESP 20; O2SAT 98
[2024-07-19 00:56] LABS: Troponin I 0.048 ng/mL (0.000-0.034)
[2024-07-19 01:44] VITALS: BP 154/69; PULSE 87
[2024-07-19 01:45] VITALS: BP 143/82; PULSE 90
[2024-07-19 04:06] VITALS: BP 138/68; PULSE 85; RESP 18; O2SAT 98
[2024-07-19 06:29] VITALS: BP 162/66; PULSE 92; RESP 12; O2SAT 97
[2024-07-19 06:50] VITALS: BP 162/66; PULSE 92; RESP 12; O2SAT 97
--- NOTE | 2024-07-19 07:32 | PC.NURSE ---
Assumed care of pt. Pt waiting on transport.
--- NOTE | 2024-07-19 08:42 | PC.NURSE ---
Report to EMS for transfer home. Assessment unchanged.
== END 2024-07-19 08:50 | disposition home or self-care (01) ==
PROVIDERS: Emergency Provider Emergency Medicine; PCP Family Medicine Adolescent Medicine
DX: R55 Syncope and collapse (principal); Z20.822 Contact with and (suspected) exposure to COVID-19; E11.22 Type 2 diabetes mellitus with diabetic chronic kidney disease; N18.6 End stage renal disease; N25.81 Secondary hyperparathyroidism of renal origin; Z99.2 Dependence on renal dialysis; E11.319 Type 2 diabetes mellitus with unspecified diabetic retinopathy without macular edema; E11.40 Type 2 diabetes mellitus with diabetic neuropathy, unspecified; E78.5 Hyperlipidemia, unspecified; I50.9 Heart failure, unspecified; I27.20 Pulmonary hypertension, unspecified; I50.40 Unspecified combined systolic (congestive) and diastolic (congestive) heart failure; M35.3 Polymyalgia rheumatica; D63.8 Anemia in other chronic diseases classified elsewhere; Z86.16 Personal history of COVID-19; Z87.891 Personal history of nicotine dependence; Z96.1 Presence of intraocular lens; Z98.42 Cataract extraction status, left eye; Z98.41 Cataract extraction status, right eye; Z79.02 Long term (current) use of antithrombotics/antiplatelets; Z79.01 Long term (current) use of anticoagulants; Z79.84 Long term (current) use of oral hypoglycemic drugs; Z79.899 Other long term (current) drug therapy; I45.9 Conduction disorder, unspecified
CPT/HCPCS: 36415; 70450; 71045; 80053; 83605; 83735; 84484; 85025; 85055; 87637; 93005; 99284

== ENCOUNTER 2025-02-26 10:55 | Emergency (ER) | payer OTHER, MEDICAID, SELFPAY ==
--- NOTE | ~2025-02-26 | CT_ITS ---
EXAMINATION: CT abdomen pelvis wo con DATE: 02/26/2025 13:06 INDICATION: Hematuria. TECHNIQUE: Computed tomography (CT) of the abdomen and pelvis was performed without intravenous contrast. Automated exposure control and iterative reconstruction technique were employed. The dose-length product was 599.76 mGy-cm. COMPARISON: None. FINDINGS: The visualized portions of lung bases demonstrate mild atelectasis and mild chronic interstitial lung disease. No pleural effusion. The heart size is normal. There are coronary artery calcifications. No pericardial effusion. The liver and spleen are normal. There are gallstones in the gallbladder, which is normal in size. The pancreas and left adrenal gland are normal. There is a 1.9 cm mass in right adrenal gland measuring low attenuation, consistent with an adenoma. There are cysts in the kidneys measuring up to 2.2 cm on the left. There is mild atrophy of the kidneys. There are widespread arterial calcifications. There is a 5 mm stone in left kidney. There is diffuse bladder wall thickening. There is a Sheriff catheter in expected position. The prostate is moderately enlarged. There is diverticulosis of the colon without evidence of diverticulitis. The appendix is normal. There are no pathologically enlarged lymph nodes. There is no free intraperitoneal fluid. There is mild thoracic and lumbar spondylosis. IMPRESSION: 1. 5 mm nonobstructing left kidney stone. 2. Diffuse bladder wall thickening, which may be secondary to chronic outlet obstruction from the moderately enlarged prostate. Reviewed, dictated and finalized at location E. IMPRESSION: 1. 5 mm nonobstructing left kidney stone. 2. Diffuse bladder wall thickening, which may be secondary to chronic outlet ob struction from the moderately enlarged prostate.
--- OUTSIDE RECORDS SUMMARY | 2025-02-26 10:57 | XMS_ITS | Encounter Summary ---
Author Organization [facility] Healthcare Address [address] [place] [address] Care Team Providers Care Soa Architect Name Role Phone Srikanth Hernandez MD Primary Care Prov ider Estiven Dubois MD Unavailable [phone] Rebecca Zuluaga MIGRATORY WORKER Unavailable [phone] Mathew Plummer MD Unavailable + [phone] Srikanth Stephens MD Unavailable [phone] Tootie Kraft MIGRATORY WORKER Unavailable + [phone] Minoo Mcgowan MD PhD Unavailable [phone] Encounter Details Date Type Department Care Team (Late st Contact Info) Description 11/13/2023 Telephone [facility] [address] [place] [address] Srikanth Stephens MD [address] [place] [address] [address] [facility] [address] [place] [address] Social History Tobacco Use Types Packs/Day Years Used Date Smoking Tobacco: Never Smokeless Tobacco: Current Snuff, Chew Social Connection and Isolation Panel Answer Date Recorded In a typical week, how many times do you talk on the phone with family, friends, or neighbors? More than three times a week 02/07/2022 How often do you get togethe r with friends or relatives? More than three times a week 02/07/2022 How often do you attend chur ch or jehovah's witness services? Never 02/07/2022 Do you belong to any clubs o r organizations such as uatsdin groups, unions, fraternal or athletic groups, or school groups? No 02/07/2022 How often do you attend meet ings of the clubs or organizations you belong to? Never 02/07/2022 Are you , , di vorced, , never , or living with a partner? 02/07/2022 AUDIT-C Answer Date Recorded Q1: How often do you have a drink containing alcohol? Never 07/07/2023 Q2: How many drinks containi ng alcohol do you have on a typical day when you are drinking? Patient does not drink Q3: How often do you have si x or more drinks on one occasion? Never 07/07/2023 Overall Financial Resource Strain (CARDIA) Answe r Date Recorded How hard is it for you to pa y for the very basics like food, housing, medical care, and heating? Not very hard 02/07/2022 Hunger Vital Sign Answer Date Recorded Within the past 12 months, y ou worried that your food would run out before you got the money to buy more. Never true 02/08/20 Within the past 12 months, t he food you bought just didn't last and you didn't have money to get more. Never true 02/07/2022 PRAPARE - Transportation Answer Date Re corded In the past 12 months, has l ack of transportation kept you from medical appointments or from getting medications? No 01/17 In the past 12 months, has l ack of transportation kept you from meetings, work, or from getting things needed for daily living? No 02/07/2022 Housing Stability Vital Sign Answer Vikram e Recorded In the last 12 months, was t here a time when you were not able to pay the mortgage or rent on time? No 02/07/2022 Number of Places Lived in the Last Year Not on f ile 02/07/2022 In the last 12 months, was t here a time when you did not have a steady place to sleep or slept in a correction (including now)? No 02/07/2022 Personal Safety Answer Date Recorded Have you ever been in or are you currently in a harmful physical or emotional relationship or is someone making you feel afraid or unsafe? Denies 07/07/2023 Sex and Gender Information Value Date Recorded Sex Assigned at Not on file Legal Sex Male 6:58 PM PAINTER Gender Identity Not on file Sexual Orientation Not on file documented as of this encounter Plan of Treatment Not on file documented as of this encounter Visit Diagnoses Not on filedocumented in this encounter Care Teams Soa Architect Relationship Specialty Start Date End Date Srikanth Hernandez MD PCP - General Family Medicine 10/16/19 Estiven Dubois MD [address] [phone] Consulting Physician Nephrology 10/23/21 Rebecca Zuluaga NP [address] [phone] Nurse Practitioner Cardiology 12/27/21 Mathew Plummer MD [facility] [address] Consulting Physician Interventional Cardiology 04/14/22 Srikanth Stephens MD [address] [facility] [address] [facility] [address] [place] [address] Surgeon Surgery 04/28/22 Tootie Kraft NP [facility] [phone] Nurse Practitioner Medical Oncology 05/22/22 iMnoo Mcgowan MD PhD [id number] [place] [address] Registered Nurse Vascular Surgery 01/06/24 documented as of this encounter
--- OUTSIDE RECORDS SUMMARY | 2025-02-26 10:57 | XMS_ITS | Clinical Summary ---
Author Organization [facility] Address [address] [place] [address] Care Team Providers Care [place] Records Management Officer Name Role Phone Unavailable Primary Care Provider Unavailabl e Immunizations Immunization Administration Dates Next Due PFIZER COVID-19 (ORIGINAL FO RMULATION, PURPLE CAP) mRNA, LNP-S, PF, 30 MCG/0.3 ML DOSE 07/30/2020,07/09/2020 Social History Tobacco Use Types Packs/Day Years Used Date Smoking Tobacco: Never Assessed Sex and Gender Information Value Date Recorded Sex Assigned at Not on file Legal Sex Male 7:59 PM CDT Gender Identity Not on file Sexual Orientation Not on file Plan of Treatment Health Maintenance Due Date Last Done Comments Hepatitis C 08/15/1965 DTaP, Tdap and Td Vaccines ( 1 - Tdap) 08/15/1966 Zoster Vaccines (1 of 2) 08/15/1997 Pneumococcal Vaccine: 50+ Years (2 of 2 - PPSV23) 03/03/2018 03/03/2017 RSV Immunization or 60+ Years (1 - 1-dose 75+ series) 08/15/2022 COVID-19 Vaccine (3 - 2024-2 6 season) 2025 07/30/2020, 07/09/2020 Influenza Adult (#1) 2025 01/31/2020 Meningococcal B Vaccine Aged Out No l onger eligible based on patient's age to complete this topic Meningococcal Vaccine Aged Out No alesia wes eligible based on patient's age to complete this topic RSV Immunizations Under 20 Months Aged Out No longer eligible b ased on patient's age to complete this topic
--- OUTSIDE RECORDS SUMMARY | 2025-02-26 10:57 | XMS_ITS | Encounter Summary ---
Author Organization [facility] Address [address] [place] [address] Phone Care Team Providers Care Matrix Bath Operator Name Role Phone Srikanth Danielson MD Primary Care Provider [phone] Reason for Visit * Reason Comments Med Refill Encounter Details Date Type Department Care Team (Late st Contact Info) Description 02/17/2019 Refill [facility] 5003 [facility] 1 [place] [address] Dulce Wang, NEGATIVE TURNER 5003 [facility] 1 [place] [address] Social History Tobacco Use Types Packs/Day Years Used Date Smoking Tobacco: Never Smokeless Tobacco: Never Alcohol Use Standard Drinks/Week Comments No 0 (1 standard drink = 0.6 oz pur e alcohol) Sex and Gender Information Value Date Recorded Sex Assigned at Not on file Legal Sex Male 8:46 AM [facility] Gender Identity Not on file Sexual Orientation Not on file documented as of this encounter Plan of Treatment Not on file documented as of this encounter Visit Diagnoses Not on filedocumented in this encounter Care Teams Matrix Bath Operator Relationship Specialty Start Date End Date Srikanth Danielson MD 531 [facility] 100 [place] [address] PCP - General Family Medicine 11/03/18 documented as of this encounter
--- OUTSIDE RECORDS SUMMARY | 2025-02-26 10:57 | XMS_ITS | Encounter Summary ---
Author Organization [facility] Healthcare Address [address] [place] [address] Care Team Providers Care Yield Improvement Engineer Name Role Phone Srikanth Hernandez MD Primary Care Prov ider Estiven Dubois MD Unavailable [phone] [place] Unavailable [phone] Mathew Plummer MD Unavailable + [phone] Srikanth Stephens MD Unavailable + [phone] [place] Unavailable + [phone] Minoo Mcgowan MD PhD Unavailable [phone] Encounter Details Date Type Department Care Team (Late st Contact Info) Description 09/16/2022 Telephone [facility] Medical Office Building [address] 180 [place] [address] Srikanth Stephens MD [facility] [address]120 [facility] [address]120 [place] [address] Social History Tobacco Use Types Packs/Day Years [...] week 02/07/2022 How often do you attend [facility] or anabaptism services? Never 02/07/2022 Do you belong to any clubs o r organizations such as pentecostalism groups, unions, fraternal or athletic groups, or school groups? No 02/07/2022 How often do you attend meet ings of the clubs or organizations you belong to? Never 02/07/2022 Are you , , di vorced, , never , or living with a partner? 02/07/2022 AUDIT-C Answer Date Recorded Q1: How often do you have a drink containing alcohol? Never 09/15/2022 Q2: How many drinks containi ng alcohol do you have on a typical day when you are drinking? Patient does not drink Q3: How often do you have si x or more drinks on one occasion? Never 09/15/2022 Overall Financial Resource Strain (CARDIA) Answe r [...] money to buy more. Never true 02/08/20 22 Within the past 12 months, t he [...] place to sleep or slept in a senior living (including now)? 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 Gender Identity Not on file Sexual Orientation Not on file documented as of this encounter Plan of Treatment Not on file documented as of this encounter Visit Diagnoses Not on filedocumented in this encounter Care Teams Yield Improvement Engineer Relationship Specialty Start Date End Date Srikanth Hernandez MD PCP - General Family Medicine 10/16/19 Estiven Dubois MD [address] [address] Consulting Physician Nephrology 10/23/21 Rebecca Zuluaga NP [address] [address] Nurse Practitioner Cardiology 12/27/21 [place] [address] [place] [address], [place] [address] Consulting Physician Interventional Cardiology 04/14/22 Srikanth Stephens MD 4600 [facility] [address]120 [facility] [address] [place] [address] Surgeon Surgery 04/28/22 Tootie Kraft NP [address] [place] [address] [address] Nurse Practitioner Medical Oncology 05/22/22 Minoo Mcgowan MD PhD [address] [place] [address] Registered Nurse Vascular Surgery 01/06/24 documented as of this encounter
--- OUTSIDE RECORDS SUMMARY | 2025-02-26 10:57 | XMS_ITS | Clinical Summary ---
Author Organization [facility] Address [address] [place] [address] Phone Care Team Providers Care Network Account Manager Name Role Phone Srikanth Danielson MD Primary Care Provider Allergies Active Allergy Reactions Criticality Noted Date Comments Sitagliptin Rash Medium 09/25/2021 Sulfa Antibiotics Hives,Itching Medium 09/25/2021 Medications carvedilol (COREG) 25 MG tablet one tab two times daily 0 6 Active Additional Information Patient taking differently: 12.5 mgOral2 times daily with meals, Reported on 05/29/2022 B Ijvbcbi-U-Mnpaf Acid (TRIPHROCAPS) 1 MG capsule Take by mouth 1 (one) time each day Active ferrous sulfate 325 (65 Fe) MG tablet Take 325 mg by mouth 2 (two) times a day Active cholecalciferol (VITAMIN D-3) 50 MCG (2000 UT) capsule Take 2,000 Units by mouth 2 (two) times a day Active amiodarone (PACERONE) 200 MG tablet Take 200 mg by mouth 1 (one) time each day Active apixaban (Eliquis) 5 MG tablet Take 5 mg by mouth in the morning and 5 mg in the evening. Active furosemide (LASIX) 80 MG tablet Take 80 mg by mouth in the morning and 80 mg in the evening. 1/2 BID. Active glipiZIDE (GLUCOTROL) 5 MG tablet Take 5 mg by mouth in the morning and 5 mg in the evening. Take before meals. Active Loratadine (Claritin) 10 MG capsule Take 10 mg by mouth 1 (one) time each day Active calcitriol (ROCALTROL) 0.25 MCG capsule TAKE 1 CAPSULE BY MOUTH THREE TIMES A WEEK 45 capsule 3 Active lidocaine-prilo reid (EMLA) 2.5-2.5 % cream APPLY TOPICALLY 1 TIME FOR 1 DOSE -GENERIC FOR EMLA 30 g 11 5 Active Active Problems Problem Noted Date Diagnosed Date Chronic combined systolic and diastolic heart fa ilure 01/24/2022 Hyperkalemia 12/14/2019 Stage 5 chronic kidney disease 12/01/2016 Anemia in chronic kidney disease 04/22/2016 Resolved Problems Problem Noted Date Diagnosed Date Resolved Date Metabolic acidosis 01/09/2021 2 Proteinuria 12/14/2019 03/14/2020 Type 2 diabetes mellitus wit h diabetic nephropathy 04/22/2016 04/10/2021 Hypertensive chronic kidney disease with stage 1 through stage 4 chronic kidney disease, or unspecified chronic kidney disease 04/22/2016 04/10/2021 Secondary hyperparathyroidism of renal origin 04/22/20 16 03/10/2022 Immunizations Immunization Administration Dates Next Due Influenza Split High Dose Preservative Free IM 02/23/2017 Influenza TIV (IM) 05/07/2016(Deferred: Patient Refused),03/14/2015(Deferred: Patient Refused) Family History Medical History Relation Comments Kidney disease Neg Hx Social History Tobacco Use Types Packs/Day Years Used Date Smoking Tobacco: Never Smokeless Tobacco: Never Tobacco Cessation:Counseling Given: Not Answered Alcohol Use Standard Drinks/Week Comments No 0 (1 standard drink = 0.6 oz pur e alcohol) Sex and Gender Information Value Date Recorded Sex Assigned at Not on file Legal Sex Male 8:46 AM [facility] Gender Identity Not on file Sexual Orientation Not on file Last Filed Vital Signs Vital Sign Reading Time Taken Comments Blood Pressure 129/42 05/29/2022 2:19 PM CONCRETE PUMP OPERATOR Pulse 53 05/29/2022 2:19 PM CONCRETE PUMP OPERATOR Temperature 36.6 C (97.8 F) 04/17/2021 12:11 PM CONCRETE PUMP OPERATOR Respiratory Rate - - Oxygen Saturation - - Inhaled Oxygen Concentration - - Weight 81.6 kg (180 lb) 05/29/2022 2:19 PM CONCRETE PUMP OPERATOR Height 177.8 cm (5' 10) 05/29/2022 2:19 PM CONCRETE PUMP OPERATOR Body Mass Index 25.83 05/29/2022 2:19 PM CONCRETE PUMP OPERATOR Plan of Treatment Health Maintenance Due Date Last Done Comments Diabetic Foot Exam 08/15/1955 Ophthalmology Exam 08/15/1957 Pneumococcal PPSV23/PCV13 65 + Years / High and Highest Risk (2 of 4 - PPSV23, PCV20, or PCV21) 04/28/2017 03/03/2017 COVID-19 Vaccine (3 - 2024- season) 2025, 07/09/2020 Influenza Vaccine (#1) 2025 Insurance MEDICARE [facility] [employer] MEDICARE ADVANTAGE Care Teams Network Account Manager Relationship Specialty Start Date End Date Srikanth Danielson MD [address] [address] PCP - General Family Medicine 11/03/18
--- OUTSIDE RECORDS SUMMARY | 2025-02-26 10:57 | XMS_ITS | Encounter Summary ---
Author Organization [facility] Healthcare Address [address] [place] [address] Care Team Providers Care Labor Training Manager Name Role Phone Srikanth Hernandez MD Primary Care Prov ider Estiven Dubois MD Unavailable [phone] Rebecca Zuluaga PLASTERER STUCCO Unavailable [phone] Mathew Plummer MD Unavailable + [phone] Srikanth Stephens MD Unavailable + [phone] Tootie Kraft PLASTERER STUCCO Unavailable + [phone] Minoo Mcgowan MD PhD Unavailable [phone] Encounter Details Date Type Department Care Team (Late st Contact Info) Description 01/08/2023 Telephone [facility] Access Center at [facility] 46[address] [facility] [address] [place] [address] Srikanth Stephens MD [address] [place] [address] [facility] [address] [place] [address] Social History Tobacco Use Types Packs/Day Years [...] often do you attend chur ch or yazidi services? Never 02/07/2022 Do you belong to any clubs o r organizations such as pentecostal groups, unions, fraternal or athletic groups, or [...] place to sleep or slept in a intermediate (including now)? 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 Gender Identity Not on file Sexual Orientation Not on file documented as of this encounter Plan of Treatment Not on file documented as of this encounter Visit Diagnoses Not on filedocumented in this encounter Care Teams Labor Training Manager Relationship Specialty Start Date End Date Srikanth Hernandez MD PCP - General Family Medicine 10/16/19 Estiven Dubois MD [address] [address] Consulting Physician Nephrology 10/23/21 Rebecca Zuluaga NP [address] [address] Nurse Practitioner Cardiology 12/27/21 Mathew Plummer MD [facility]5 [facility] [address], [place] [address] Consulting Physician Interventional Cardiology 04/14/22 Srikanth Stephens MD [facility]0 [facility] [address] [facility] [address] [place] [address] Surgeon Surgery 04/28/22 Tootie Kraft NP [address] [place] [address] Nurse Practitioner Medical Oncology 05/22/22 Minoo Mcgowan MD PhD [address] [place] [address] Registered Nurse Vascular Surgery 01/06/24 documented as of this encounter
--- OUTSIDE RECORDS SUMMARY | 2025-02-26 10:57 | XMS_ITS | Clinical Summary ---
Author Organization [facility] Address [address] [place] [address] Phone Care Team Providers Care Vat Tender Name Role Phone Srikanth Hernandez MD Primary Care Provider [phone] Social History Tobacco Use Types Packs/Day Years Used Date Smoking Tobacco: Never Assessed Sex and Gender Information Value Date Recorded Sex Assigned at Not on file Legal Sex Male 3:06 PM EST Gender Identity Not on file Sexual Orientation Not on file Plan of Treatment Health Maintenance Due Date Last Done Comments Diabetes: Hemoglobin A1C 07/09/2023 05/01/2022 Diabetes: Ophthalmology Exam 07/09/2023 Diabetes: Pedal Pulse Checked 07/09/2023 Diabetes: Sensory Foot Exam 07/09/2023 Diabetes: Visual Foot Exam 07/09/2023 Influenza Vaccine (#1) 2025 02/23/2017 Pneumococcal Vaccine: 50+ Years Completed 01/28/2021, 03/03/2017 Hepatitis B Vaccine Aged Out No longe r eligible based on patient's age to complete this topic Insurance Care Teams Vat Tender Relationship Specialty Start Date End Date Srikanth Hernandez MD [address] [address] PCP - General Family Medicine 07/08/23
--- OUTSIDE RECORDS SUMMARY | 2025-02-26 10:57 | XMS_ITS | Encounter Summary ---
Author Organization [facility] Healthcare Address [address] [place] [address] Care Team Providers Care Assembler Arranger Name Role Phone Srikanth Hernandez MD Primary Care Prov ider Estiven Dubois MD Unavailable + [phone] Rebecca Zuluaga COMMUNITY RELATIONS ADVISOR Unavailable [phone] Mathew Plummer MD Unavailable + [phone] Srikanth Stephens MD Unavailable + [phone] [address] COMMUNITY RELATIONS ADVISOR Unavailable + [phone] Minoo Mcgowan MD PhD Unavailable [phone] Encounter Details Date Type Department Care Team (Late st Contact Info) Description 04/01/2024 Telephone [facility] Dialysis Access Center at [facility] 4600 [facility] [address] [place] [address] Naeem Stephens MD [address] [place] [address] [address] [place] [address] Social History Tobacco Use Types Packs/Day Years [...] often do you attend chur ch or yarsani services? Never 02/07/2022 Do you belong to any clubs o r organizations such as mu-ism groups, unions, fraternal or athletic groups, or school groups? No 02/07/2022 How often do you attend meet ings of the clubs or organizations you belong to? Never 02/07/2022 Are you , , di vorced, , never , or living with a partner? 02/07/2022 AUDIT-C Answer Date Recorded Q1: How often do you have a drink containing alcohol? Never 12/03/2023 Q2: How many drinks containi ng alcohol do you have on a typical day when you are drinking? Patient does not drink Q3: How often do you have si x or more drinks on one occasion? Never 12/03/2023 Overall Financial Resource Strain (CARDIA) Answe r Date Recorded How hard is it for you to pa y for the very basics like food, housing, medical care, and heating? Not very hard 02/07/2022 PHQ-2 Answer Date Recorded PHQ-2 Total Score (If total score is 3 or more points, staff should administer the PHQ-9) 0 01/01/2024 Hunger Vital Sign Answer Date Recorded Within [...] place to sleep or slept in a care home (including now)? No 02/07/2022 Personal Safety Answer Date Recorded Have you ever been in or are you currently in a harmful physical or emotional relationship or is someone making you feel afraid or unsafe? 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 Gender Identity Not on file Sexual Orientation Not on file documented as of this encounter Plan of Treatment Not on file documented as of this encounter Visit Diagnoses Not on filedocumented in this encounter Care Teams Assembler Arranger Relationship Specialty Start Date End Date Srikanth Hernandez MD PCP - General Family Medicine 10/16/19 Estiven Dubois MD [address] [address] Consulting Physician Nephrology 10/23/21 Rebecca Zuluaga NP [address] [address] Nurse Practitioner Cardiology 12/27/21 Mathew Plummer MD 1225 [facility] [address], [place] [address] Consulting Physician Interventional Cardiology 04/14/22 Srikanth Stephens MD 4600 [facility] [address] [facility] [address] [place] [address] Surgeon Surgery 04/28/22 Tootie Kraft, ELANA [address] [place] [address] Nurse Practitioner Medical Oncology 05/22/22 Minoo Mcgowan MD PhD [address] [place] [address] Registered Nurse Vascular Surgery 01/06/24 documented as of this encounter
--- OUTSIDE RECORDS SUMMARY | 2025-02-26 10:57 | XMS_ITS | Encounter Summary ---
Author Organization [facility] Address [address] [place] [address] Phone Care Team Providers Care Staff Psychiatrist Name Role Phone Srikanth Danielson MD Primary Care Provider [phone] Reason for Visit * Reason Comments Med Refill Encounter Details Date Type Department Care Team ([facility] st Contact Info) Description 08/15/2021 Refill [facility] 5003 [facility] 1 [place] [address] Estiven Dubois MD 5003 [facility] 1 [place] [address] Social History Tobacco Use Types Packs/Day Years Used Date Smoking Tobacco: Never Smokeless Tobacco: Never Alcohol Use Standard Drinks/Week Comments No 0 (1 standard drink = 0.6 oz pur e alcohol) Sex and Gender Information Value Date Recorded Sex Assigned at Not on file Legal Sex Male 8:46 AM [facility] Gender Identity Not on file Sexual Orientation Not on file documented as of this encounter Plan of Treatment Not on file documented as of this encounter Visit Diagnoses Not on filedocumented in this encounter Care Teams Staff Psychiatrist Relationship Specialty Start Date End Date Srikanth Danielson MD 531 [facility] 100 [place] [address] PCP - General Family Medicine 11/03/18 documented as of this encounter
--- OUTSIDE RECORDS SUMMARY | 2025-02-26 10:57 | XMS_ITS | Encounter Summary ---
Author Organization [facility] Address [address] [place] [address] Phone Care Team Providers Care Edge Inker Uppers Name Role Phone Srikanth Danielson MD Primary Care Provider [phone] Reason for Visit * Reason Comments Med Refill Encounter Details Date Type Department Care Team ([facility] st Contact Info) Description 02/11/2022 Refill [facility] 5003 [facility] 1 [place] [address] Estiven Dubois MD 5003 [facility] 1 [place] [address] Social History Tobacco Use Types Packs/Day Years Used Date Smoking Tobacco: Never Smokeless Tobacco: Never Alcohol Use Standard Drinks/Week Comments No 0 (1 standard drink = 0.6 oz pur e alcohol) Sex and Gender Information Value Date Recorded Sex Assigned at Not on file Legal Sex Male 8:46 AM [facility] Gender Identity Not on file Sexual Orientation Not on file documented as of this encounter Plan of Treatment Not on file documented as of this encounter Visit Diagnoses Not on filedocumented in this encounter Care Teams Edge Inker Uppers Relationship Specialty Start Date End Date Srikanth Danielson MD 531 [facility] 100 [place] [address] PCP - General Family Medicine 11/03/18 documented as of this encounter
--- OUTSIDE RECORDS SUMMARY | 2025-02-26 10:57 | XMS_ITS | Encounter Summary ---
Author Organization [facility] Address [address] [place] [address] Phone Care Team Providers Care Oil Change Technician Name Role Phone Srikanth Danielson MD Primary Care Provider [phone] Reason for Visit * Reason Comments Med Refill Encounter Details Date Type Department Care Team (Late st Contact Info) Description 09/22/2019 Refill [facility] 5003 [facility] 1 [place] [address] Estiven Dubois MD 5003 [facility] 1 [place] [address] Social History Tobacco Use Types Packs/Day Years Used Date Smoking Tobacco: Never Smokeless Tobacco: Never Alcohol Use Standard Drinks/Week Comments No 0 (1 standard drink = 0.6 oz pur e alcohol) Sex and Gender Information Value Date Recorded Sex Assigned at Not on file Legal Sex Male 8:[address] [facility] Gender Identity Not on file Sexual Orientation Not on file documented as of this encounter Plan of Treatment Not on file documented as of this encounter Visit Diagnoses Not on filedocumented in this encounter Care Teams Oil Change Technician Relationship Specialty Start Date End Date Srikanth Danielson MD 531 [facility] 100 [place] [address] PCP - General Family Medicine 11/03/18 documented as of this encounter
[2025-02-26 11:00] VITALS: BP 150/74; PULSE 85; RESP 18; TEMP 36.4; O2SAT 99
--- OUTSIDE RECORDS SUMMARY | 2025-02-26 11:00 | XMS_ITS ---
Author Organization [facility] ([facility]) Address [address] [place] [id number] Care Team Providers Care Back Tacker Name Role Phone Unavailable Unavailable Unavailable Allergies, Adverse Reactions, Alerts Allergy Name Allergy Type Status Severity Reaction(s) Onset Date Inactive Date Treating Clinician Comments SITagliptin Allergy Active Moderate Allergy Rash 06-05 16:59: 27 Sulfa Antibiotics Allergy Active Moderate Allergy Rash 06-05 16:59: 07 Medications Ordered Medication Name Filled Medication Name Start Date Stop Date Current Medication? Ordering Clinician Indication Dosage Frequency Signature (SIG) Comments Components Mircera 02-09 05:00: 00 Yes [id number] Number of Repeats Allowed: Frequency: ELIZABETH dosing, every two weeks Venofer 8-28 05:00: 00 Yes [id number] Number of Repeats Allowed: Frequency: One time a weekDosesO rdered: Maintenanc e Dose 50 Milligram Route: Intravenou s Mircera 7-31 05:00: 00 Yes [id number] Number of Repeats Allowed: Frequency: ELIZABETH dosing, every two weeks Mircera 0 6-12 05:00: 00 Yes [id number] Number of Repeats Allowed: Frequency: ELIZABETH dosing, every two weeks Engerix-B 2024- 5-16 14:21: 54 Yes [id number] Number of Repeats Allowed: Frequency: One time only Mircera 5-10 05:00: 00 Yes [id number] Number of Repeats Allowed: Frequency: ELIZABETH dosing, every two weeks Rosuvastati n Calcium 9-05 11:55: 10 Yes Number of Repeats Allowed: Frequency: One time a day Cholecalcif shen 01-20 11:53: 58 Yes Number of Repeats Allowed: Frequency: Two times a day Clopidogrel Bisulfate 07-10 17:43: 18 Yes Number of Repeats Allowed: Frequency: One time a day Carvedilol 2022-05 21:12: 27 Yes Number of Repeats Allowed: Frequency: Two times a day ONS [facility] 02-13 05:00: 00 Yes [id number] Number of Repeats Allowed: Frequency: Every Dialysis Treatment Furosemide 10-03 20:51: 56 Yes Number of Repeats Allowed: Frequency: Two times a day Claritin 06-09 22:33: 27 Yes Number of Repeats Allowed: Frequency: Every other day Vitamin D-3 06-09 22:32: 19 Yes Number of Repeats Allowed: Frequency: Two times a day Triphrocaps 06-09 22:29: 02 Yes Number of Repeats Allowed: Frequency: One time a day glipiZIDE 06-09 22:28: 29 Yes Number of Repeats Allowed: Frequency: Two times a day Ferrous Sulfate-Fol ic Acid 06-09 22:26: 21 Yes Number of Repeats Allowed: Frequency: Two times a day Eliquis 06-09 22:22: 22 Yes Number of Repeats Allowed: Frequency: Two times a day Oxygen 06-05 17:18: 42 Yes [id number] Number of Repeats Allowed: Frequency: As needed ondansetron hydrochlori de 06-05 17:18: 33 Yes [id number] Number of Repeats Allowed: Frequency: Every 4 hours as needed Normal Saline Solution 0.9% NaCl 06-05 17:18: 14 Yes [id number] Number of Repeats Allowed: Frequency: As needed Insta-Gluco se 06-05 17:18: 04 Yes [id number] Number of Repeats Allowed: Frequency: Every 30 minutes as needed diphenhydra mine hydrochlori de 06-05 17:17: 06 Yes [id number] Number of Repeats Allowed: Frequency: Every 4 hours as needed diphenhydra mine hydrochlori de 06-05 17:16: 36 Yes [id number] Number of Repeats Allowed: Frequency: Every 30 minutes as needed clonidine 06-05 17:16: 00 Yes [id number] Number of Repeats Allowed: Frequency: Every 4 hours as needed Antacid Extra Strength 06-05 17:15: 36 Yes [id number] Number of Repeats Allowed: Frequency: Every 4 hours as needed acetaminoph en 06-05 17:15: 04 Yes [id number] Number of Repeats Allowed: Frequency: Every 4 hours as needed Problems This patient has no known problems. Procedures Procedure Date / Time Performed Performing Clinician Yina ce Details AV Graft 2022-04-28 06:00:00 Access Site Upper Arm (Left) Access Use Start Date 2022-06-06 06:00:0 0 DIALYSIS TREATMENT INFORMATION Conventional Hemodialysis Date Type Treatment Start Date Treatment End Date Pre-Treatment Vitals Post-Treatment Vitals Weight Gain BFR DFR Actual UF Dialysis Access Octob er 2024 In-Ce nter Hemod ialys is Treat ment 2025-02-24 T16:38:01. 000Z 2025-02-24 T19:55:31. 000Z BP Sitting (Pre-Dialysis) 168/93 mmHg BP Sitting (Post-D ialysis ) 160/ 73 mmHg Sitting Heart Rate Pre-Dialysis 69 BPM Sitting H eart Rate Post-Dialysis 66 BPM Temperature Pre-Dialysis 97.9 degF Temperature Post -Dialysis 97.3 degF February 22, 2025 In-Center Hemodialysis Treatment 5057-84-92Z68:32:17.000Z 2502-37-49D11:51:27.000Z BP Sitting (Pre-Dialysis) 162/97 mmHg BP Sitting (Post-Dialysis) 151/69 mmHg Concurrent Access: falseAV Graft Upper Arm (Left) Arterial Sitting Heart Rate Pre-Dialysis 76 BPM Sitting H eart Rate Post-Dialysis 66 BPM Temperature Pre-Dialysis 97.5 degF Temperature Post -Dialysis 97.8 degF February 20, 2025 In-Center Hemodialysis Treatment 2368-27-40P41:35:20.000Z 6807-31-80B19:56:04.000Z BP Sitting (Pre-Dialysis) 181/83 mmHg BP Sitting (Post-Dialysis) 153/69 mmHg Concurrent Access: falseAV Graft Upper Arm (Left) Arterial Sitting Heart Rate Pre-Dialysis 76 BPM Sitting H eart Rate Post-Dialysis 66 BPM Temperature Pre-Dialysis 97.5 degF Temperature Post -Dialysis 97.6 degF February 17, 2025 In-Center Hemodialysis Treatment 8494-10-43N99:34:00.000Z 3470-75-58S57:52:17.000Z BP Sitting (Pre-Dialysis) 143/84 mmHg BP Sitting (Post-Dialysis) 192/92 mmHg Concurrent Access: falseAV Graft Upper Arm (Left) Arterial Sitting Heart Rate Pre-Dialysis 83 BPM Sitting H eart Rate Post-Dialysis 81 BPM Temperature Pre-Dialysis 97.5 degF Temperature Post -Dialysis 97.2 degF February 15, 2025 In-Center Hemodialysis Treatment 6094-62-79P73:37:45.000Z 0326-87-15K88:53:35.000Z BP Sitting (Pre-Dialysis) 170/80 mmHg BP Sitting (Post-Dialysis) 172/81 mmHg Concurrent Access: falseAV Graft Upper Arm (Left) Arterial Sitting Heart Rate Pre-Dialysis 82 BPM Sitting H eart Rate Post-Dialysis 79 BPM Temperature Pre-Dialysis 98.1 degF Temperature Post -Dialysis 97.6 degF February 13, 2025 In-Center Hemodialysis Treatment 2718-28-58A43:31:41.000Z 9184-01-32E29:48:46.000Z BP Sitting (Pre-Dialysis) 171/67 mmHg BP Sitting (Post-Dialysis) 154/70 mmHg Concurrent Access: falseAV Graft Upper Arm (Left) Arterial Sitting Heart Rate Pre-Dialysis 76 BPM Sitting H eart Rate Post-Dialysis 67 BPM Temperature Pre-Dialysis 97.5 degF Temperature Post -Dialysis 97.6 degF February 10, 2025 In-Center Hemodialysis Treatment 7931-62-57T47:52:52.000Z 8465-54-23Y06:11:37.000Z BP Sitting (Pre-Dialysis) 152/71 mmHg BP Sitting (Post-Dialysis) 169/93 mmHg Concurrent Access: falseAV Graft Upper Arm (Left) Arterial Sitting Heart Rate Pre-Dialysis 67 BPM Sitting H eart Rate Post-Dialysis 51 BPM Temperature Pre-Dialysis 98 degF Temperature Post -Dialysis 97.5 degF February 08, 2025 In-Center Hemodialysis Treatment 1066-09-35J88:38:00.000Z 6990-57-92N17:59:56.000Z BP Sitting (Pre-Dialysis) 117/65 mmHg BP Sitting (Post-Dialysis) 137/70 mmHg Concurrent Access: falseAV Graft Upper Arm (Left) Arterial Sitting Heart Rate Pre-Dialysis 75 BPM Sitting H eart Rate Post-Dialysis 71 BPM Temperature Pre-Dialysis 97.3 degF Temperature Post -Dialysis 97.3 degF February 06, 2025 In-Center Hemodialysis Treatment 5632-13-43K48:43:34.000Z 1606-48-81R29:01:29.000Z BP Sitting (Pre-Dialysis) 165/66 mmHg BP Sitting (Post-Dialysis) 144/87 mmHg Concurrent Access: falseAV Graft Upper Arm (Left) Arterial Sitting Heart Rate Pre-Dialysis 82 BPM Sitting H eart Rate Post-Dialysis 74 BPM Temperature Pre-Dialysis 97.9 degF Temperature Post -Dialysis 97.2 degF February 03, 2025 In-Center Hemodialysis Treatment 1060-82-07M19:45:43.000Z 5910-52-22D24:01:58.000Z BP Sitting (Pre-Dialysis) 158/94 mmHg BP Sitting (Post-Dialysis) 127/58 mmHg Concurrent Access: falseAV Graft Upper Arm (Left) Arterial Sitting Heart Rate Pre-Dialysis 86 BPM Sitting H eart Rate Post-Dialysis 60 BPM Temperature Pre-Dialysis 97.4 degF Temperature Post -Dialysis 97.5 degF February 01, 2025 In-Center Hemodialysis Treatment 3770-11-36Y68:53:35.000Z 3346-56-90B53:08:10.000Z BP Sitting (Pre-Dialysis) 193/83 mmHg BP Sitting (Post-Dialysis) 184/85 mmHg Concurrent Access: falseAV Graft Upper Arm (Left) Arterial Sitting Heart Rate Pre-Dialysis 76 BPM Sitting H eart Rate Post-Dialysis 68 BPM Temperature Pre-Dialysis 97.7 degF Temperature Post -Dialysis 97.3 degF January 30, 2025 In-Center Hemodialysis Treatment 2342-44-24P59:34:00.000Z 4996-64-04D10:51:34.000Z BP Sitting (Pre-Dialysis) 159/71 mmHg BP Sitting (Post-Dialysis) 158/74 mmHg Concurrent Access: falseAV Graft Upper Arm (Left) Arterial Sitting Heart Rate Pre-Dialysis 84 BPM Sitting H eart Rate Post-Dialysis 70 BPM Temperature Pre-Dialysis 97.4 degF Temperature Post -Dialysis 97.6 degF January 27, 2025 In-Center Hemodialysis Treatment 7483-71-35M39:48:27.000Z 9062-75-38M04:08:52.000Z BP Sitting (Pre-Dialysis) 180/96 mmHg BP Sitting (Post-Dialysis) 161/73 mmHg Concurrent Access: falseAV Graft Upper Arm (Left) Arterial Sitting Heart Rate Pre-Dialysis 82 BPM Sitting H eart Rate Post-Dialysis 69 BPM Temperature Pre-Dialysis 97.6 degF Temperature Post -Dialysis 97.5 degF January 25, 2025 In-Center Hemodialysis Treatment 2793-56-01B45:36:00.000Z 5402-16-11K52:56:09.000Z BP Sitting (Pre-Dialysis) 200/79 mmHg BP Sitting (Post-Dialysis) 169/69 mmHg Concurrent Access: falseAV Graft Upper Arm (Left) Arterial Sitting Heart Rate Pre-Dialysis 75 BPM Sitting H eart Rate Post-Dialysis 71 BPM Temperature Pre-Dialysis 97.5 degF Temperature Post -Dialysis 98 degF January 23, 2025 In-Center Hemodialysis Treatment 5636-49-63J63:44:47.000Z 2680-72-78J06:46:27.000Z BP Sitting (Pre-Dialysis) 192/89 mmHg BP Sitting (Post-Dialysis) 178/100 mmHg Concurrent Access: falseAV Graft Upper Arm (Left) Arterial Sitting Heart Rate Pre-Dialysis 78 BPM Sitting H eart Rate Post-Dialysis 87 BPM Temperature Pre-Dialysis 97.7 degF Temperature Post -Dialysis 98.1 degF January 20, 2025 In-Center Hemodialysis Treatment 1376-30-52I76:37:33.000Z 6100-07-89X68:54:38.000Z BP Sitting (Pre-Dialysis) 180/75 mmHg BP Sitting (Post-Dialysis) 175/85 mmHg Concurrent Access: falseAV Graft Upper Arm (Left) Arterial Sitting Heart Rate Pre-Dialysis 66 BPM Sitting H eart Rate Post-Dialysis 64 BPM Temperature Pre-Dialysis 97.5 degF Temperature Post -Dialysis 97.3 degF January 18, 2025 In-Center Hemodialysis Treatment 4737-63-30X27:44:26.000Z 3578-65-40T27:59:51.000Z BP Sitting (Pre-Dialysis) 175/91 mmHg BP Sitting (Post-Dialysis) 186/75 mmHg Concurrent Access: falseAV Graft Upper Arm (Left) Arterial Sitting Heart Rate Pre-Dialysis 78 BPM Sitting H eart Rate Post-Dialysis 76 BPM Temperature Pre-Dialysis 97.7 degF Temperature Post -Dialysis 97.5 degF January 16, 2025 In-Center Hemodialysis Treatment 3069-04-56G65:39:00.000Z 7416-79-15O17:56:06.000Z BP Sitting (Pre-Dialysis) 209/78 mmHg BP Sitting (Post-Dialysis) 174/89 mmHg Concurrent Access: falseAV Graft Upper Arm (Left) Arterial Sitting Heart Rate Pre-Dialysis 83 BPM Sitting H eart Rate Post-Dialysis 77 BPM Temperature Pre-Dialysis 97.5 degF Temperature Post -Dialysis 97.5 degF January 13, 2025 In-Center Hemodialysis Treatment 6249-27-33O16:45:13.000Z 8366-44-49C42:00:13.000Z BP Sitting (Pre-Dialysis) 150/75 mmHg BP Sitting (Post-Dialysis) 175/98 mmHg Concurrent Access: falseAV Graft Upper Arm (Left) Arterial Sitting Heart Rate Pre-Dialysis 70 BPM Sitting H eart Rate Post-Dialysis 76 BPM Temperature Pre-Dialysis 98.6 degF Temperature Post -Dialysis 97.2 degF January 11, 2025 In-Center Hemodialysis Treatment 3109-05-83Q36:30:56.000Z 0690-19-29L94:45:00.000Z BP Sitting (Pre-Dialysis) 167/79 mmHg BP Sitting (Post-Dialysis) 196/80 mmHg Concurrent Access: falseAV Graft Upper Arm (Left) Arterial Sitting Heart Rate Pre-Dialysis 73 BPM Sitting H eart Rate Post-Dialysis 73 BPM Temperature Pre-Dialysis 98.1 degF Temperature Post -Dialysis 97.5 degF January 09, 2025 In-Center Hemodialysis Treatment 2118-16-45A29:35:15.000Z 4650-93-55U13:51:30.000Z BP Sitting (Pre-Dialysis) 207/83 mmHg BP Sitting (Post-Dialysis) 178/66 mmHg Concurrent Access: falseAV Graft Upper Arm (Left) Arterial Sitting Heart Rate Pre-Dialysis 81 BPM Sitting H eart Rate Post-Dialysis 62 BPM Temperature Pre-Dialysis 97.5 degF Temperature Post -Dialysis 97.1 degF January 06, 2025 In-Center Hemodialysis Treatment 1878-33-55T75:36:00.000Z 9660-60-40Y49:55:01.000Z BP Sitting (Pre-Dialysis) 154/75 mmHg BP Sitting (Post-Dialysis) 159/79 mmHg Concurrent Access: falseAV Graft Upper Arm (Left) Arterial Sitting Heart Rate Pre-Dialysis 76 BPM Sitting H eart Rate Post-Dialysis 73 BPM Temperature Pre-Dialysis 97.5 degF Temperature Post -Dialysis 98.3 degF January 04, 2025 In-Center Hemodialysis Treatment 4275-34-35W25:43:45.000Z 4944-75-30Z33:56:15.000Z BP Sitting (Pre-Dialysis) 168/94 mmHg BP Sitting (Post-Dialysis) 155/85 mmHg Concurrent Access: falseAV Graft Upper Arm (Left) Arterial Sitting Heart Rate Pre-Dialysis 83 BPM Sitting H eart Rate Post-Dialysis 73 BPM Temperature Pre-Dialysis 97.6 degF Temperature Post -Dialysis 97.8 degF January 02, 2025 In-Center Hemodialysis Treatment 8853-93-49D18:44:42.000Z 4090-13-00Y51:00:07.000Z BP Sitting (Pre-Dialysis) 185/90 mmHg BP Sitting (Post-Dialysis) 134/67 mmHg Concurrent Access: falseAV Graft Upper Arm (Left) Arterial Sitting Heart Rate Pre-Dialysis 76 BPM Sitting H eart Rate Post-Dialysis 70 BPM Temperature Pre-Dialysis 98.3 degF Temperature Post -Dialysis 97.6 degF December 30, 2024 In-Center Hemodialysis Treatment 0904-55-86K75:35:20.000Z 0400-70-13A65:36:35.000Z BP Sitting (Pre-Dialysis) 165/74 mmHg BP Sitting (Post-Dialysis) 182/63 mmHg Concurrent Access: falseAV Graft Upper Arm (Left) Arterial Sitting Heart Rate Pre-Dialysis 59 BPM Sitting H eart Rate Post-Dialysis 68 BPM Temperature Pre-Dialysis 97.5 degF Temperature Post -Dialysis 97.8 degF December 28, 2024 In-Center Hemodialysis Treatment 3254-44-64O27:33:27.000Z 5610-68-07X91:46:22.000Z BP Sitting (Pre-Dialysis) 153/77 mmHg BP Sitting (Post-Dialysis) 162/80 mmHg Concurrent Access: falseAV Graft Upper Arm (Left) Arterial Sitting Heart Rate Pre-Dialysis 86 BPM Sitting H eart Rate Post-Dialysis 72 BPM Temperature Pre-Dialysis 97.4 degF Temperature Post -Dialysis 97.6 degF December 26, 2024 In-Center Hemodialysis Treatment 5427-05-12B47:24:21.000Z 6549-26-85P48:42:17.000Z BP Sitting (Pre-Dialysis) 149/71 mmHg BP Sitting (Post-Dialysis) 186/87 mmHg Concurrent Access: falseAV Graft Upper Arm (Left) Arterial Sitting Heart Rate Pre-Dialysis 77 BPM Sitting H eart Rate Post-Dialysis 72 BPM Temperature Pre-Dialysis 97.6 degF December 23, 2024 In-Center Hemodialysis Treatment 5218-10-76E68:44:16.000Z 6839-41-75V87:59:16.000Z BP Sitting (Pre-Dialysis) 136/69 mmHg BP Sitting (Post-Dialysis) 183/71 mmHg Concurrent Access: falseAV Graft Upper Arm (Left) Arterial Sitting Heart Rate Pre-Dialysis 74 BPM Sitting H eart Rate Post-Dialysis 72 BPM Temperature Pre-Dialysis 98.4 degF Temperature Post -Dialysis 97.6 degF December 21, 2024 In-Center Hemodialysis Treatment 4011-60-06C64:38:13.000Z 7505-97-42D80:54:53.000Z BP Sitting (Pre-Dialysis) 131/84 mmHg BP Sitting (Post-Dialysis) 124/49 mmHg Concurrent Access: falseAV Graft Upper Arm (Left) Arterial Sitting Heart Rate Pre-Dialysis 69 BPM Sitting H eart Rate Post-Dialysis 68 BPM Temperature Pre-Dialysis 97.5 degF Temperature Post -Dialysis 97.5 degF December 19, 2024 In-Center Hemodialysis Treatment 7369-21-85W51:38:00.000Z 1424-54-15H14:41:37.000Z BP Sitting (Pre-Dialysis) 169/73 mmHg BP Sitting (Post-Dialysis) 151/78 mmHg Concurrent Access: falseAV Graft Upper Arm (Left) Arterial Sitting Heart Rate Pre-Dialysis 73 BPM Sitting H eart Rate Post-Dialysis 73 BPM Temperature Pre-Dialysis 97.4 degF Temperature Post -Dialysis 97.6 degF December 14, 2024 In-Center Hemodialysis Treatment 3755-78-68R03:48:26.000Z 2563-48-09I95:08:51.000Z BP Sitting (Pre-Dialysis) 162/115 mmHg BP Sitting (Post-Dialysis) 186/89 mmHg Concurrent Access: falseAV Graft Upper Arm (Left) Arterial Sitting Heart Rate Pre-Dialysis 78 BPM Sitting H eart Rate Post-Dialysis 72 BPM Temperature Pre-Dialysis 98.2 degF Temperature Post -Dialysis 97.6 degF December 12, 2024 In-Center Hemodialysis Treatment 5350-78-42J38:29:40.000Z 2056-67-45T21:50:31.000Z BP Sitting (Pre-Dialysis) 145/65 mmHg BP Sitting (Post-Dialysis) 170/77 mmHg Concurrent Access: falseAV Graft Upper Arm (Left) Arterial Sitting Heart Rate Pre-Dialysis 81 BPM Sitting H eart Rate Post-Dialysis 71 BPM Temperature Pre-Dialysis 97.2 degF Temperature Post -Dialysis 97.4 degF December 09, 2024 In-Center Hemodialysis Treatment 9644-00-10F73:40:37.000Z 6308-37-73W98:56:27.000Z BP Sitting (Pre-Dialysis) 135/93 mmHg BP Sitting (Post-Dialysis) 145/70 mmHg Concurrent Access: falseAV Graft Upper Arm (Left) Arterial Sitting Heart Rate Pre-Dialysis 76 BPM Sitting H eart Rate Post-Dialysis 65 BPM Temperature Pre-Dialysis 97.8 degF Temperature Post -Dialysis 97.6 degF December 07, 2024 In-Center Hemodialysis Treatment 9056-23-37A49:41:25.000Z 5181-05-44H58:57:15.000Z BP Sitting (Pre-Dialysis) 164/94 mmHg BP Sitting (Post-Dialysis) 152/81 mmHg Concurrent Access: falseAV Graft Upper Arm (Left) Arterial Sitting Heart Rate Pre-Dialysis 78 BPM Sitting H eart Rate Post-Dialysis 81 BPM Temperature Pre-Dialysis 97.8 degF Temperature Post -Dialysis 97.5 degF December 05, 2024 In-Center Hemodialysis Treatment 8722-38-12P38:45:50.000Z 4548-79-30E47:01:40.000Z BP Sitting (Pre-Dialysis) 137/69 mmHg BP Sitting (Post-Dialysis) 132/61 mmHg Concurrent Access: falseAV Graft Upper Arm (Left) Arterial Sitting Heart Rate Pre-Dialysis 75 BPM Sitting H eart Rate Post-Dialysis 71 BPM Temperature Pre-Dialysis 97.4 degF Temperature Post -Dialysis 98.2 degF December 02, 2024 In-Center Hemodialysis Treatment 7322-93-37I33:38:30.000Z 3677-18-78C01:00:10.000Z BP Sitting (Pre-Dialysis) 128/83 mmHg BP Sitting (Post-Dialysis) 138/70 mmHg Concurrent Access: falseAV Graft Upper Arm (Left) Arterial Sitting Heart Rate Pre-Dialysis 75 BPM Sitting H eart Rate Post-Dialysis 71 BPM Temperature Pre-Dialysis 97.4 degF Temperature Post -Dialysis 97.4 degF November 30, 2024 In-Center Hemodialysis Treatment 2437-69-94V59:32:06.000Z 4155-54-65R96:47:56.000Z BP Sitting (Pre-Dialysis) 138/65 mmHg BP Sitting (Post-Dialysis) 110/70 mmHg Concurrent Access: falseAV Graft Upper Arm (Left) Arterial Sitting Heart Rate Pre-Dialysis 82 BPM Sitting H eart Rate Post-Dialysis 75 BPM Temperature Pre-Dialysis 97.5 degF Temperature Post -Dialysis 97.8 degF November 28, 2024 In-Center Hemodialysis Treatment 8446-21-44A89:46:20.000Z 6594-49-31S04:59:15.000Z BP Sitting (Pre-Dialysis) 149/79 mmHg BP Sitting (Post-Dialysis) 145/68 mmHg Concurrent Access: falseAV Graft Upper Arm (Left) Arterial Sitting Heart Rate Pre-Dialysis 80 BPM Sitting H eart Rate Post-Dialysis 83 BPM Temperature Pre-Dialysis 98.3 degF Temperature Post -Dialysis 97.5 degF November 25, 2024 In-Center Hemodialysis Treatment 6896-53-28Z56:32:08.000Z 4700-92-42X19:50:03.000Z BP Sitting (Pre-Dialysis) 145/79 mmHg BP Sitting (Post-Dialysis) 151/56 mmHg Concurrent Access: falseAV Graft Upper Arm (Left) Arterial Sitting Heart Rate Pre-Dialysis 76 BPM Sitting H eart Rate Post-Dialysis 66 BPM Temperature Pre-Dialysis 97.5 degF Temperature Post -Dialysis 97.3 degF November 23, 2024 In-Center Hemodialysis Treatment 1487-46-54X58:45:10.000Z 0705-83-08M05:01:50.000Z BP Sitting (Pre-Dialysis) 137/66 mmHg BP Sitting (Post-Dialysis) 147/64 mmHg Concurrent Access: falseAV Graft Upper Arm (Left) Arterial Sitting Heart Rate Pre-Dialysis 80 BPM Sitting H eart Rate Post-Dialysis 72 BPM Temperature Pre-Dialysis 97.2 degF Temperature Post -Dialysis 97.2 degF November 21, 2024 In-Center Hemodialysis Treatment 4267-20-40W82:41:27.000Z 4895-39-36Z74:57:42.000Z BP Sitting (Pre-Dialysis) 166/73 mmHg BP Sitting (Post-Dialysis) 153/78 mmHg Concurrent Access: falseAV Graft Upper Arm (Left) Arterial Sitting Heart Rate Pre-Dialysis 75 BPM Sitting H eart Rate Post-Dialysis 77 BPM Temperature Pre-Dialysis 98.7 degF Temperature Post -Dialysis 98.2 degF November 18, 2024 In-Center Hemodialysis Treatment 6355-73-36X21:06:40.000Z 6476-44-09Q42:25:25.000Z BP Sitting (Pre-Dialysis) 123/51 mmHg BP Sitting (Post-Dialysis) 124/75 mmHg Concurrent Access: falseAV Graft Upper Arm (Left) Arterial Sitting Heart Rate Pre-Dialysis 74 BPM Sitting H eart Rate Post-Dialysis 77 BPM Temperature Pre-Dialysis 97 degF Temperature Post -Dialysis 97.6 degF November 16, 2024 In-Center Hemodialysis Treatment 6292-53-38R42:35:13.000Z 4445-74-25U11:51:28.000Z BP Sitting (Pre-Dialysis) 147/68 mmHg BP Sitting (Post-Dialysis) 131/75 mmHg Concurrent Access: falseAV Graft Upper Arm (Left) Arterial Sitting Heart Rate Pre-Dialysis 82 BPM Sitting H eart Rate Post-Dialysis 80 BPM Temperature Pre-Dialysis 98.6 degF Temperature Post -Dialysis 97.2 degF November 14, 2024 In-Center Hemodialysis Treatment 3835-51-15Y07:43:57.000Z 6287-82-78B21:58:57.000Z BP Sitting (Pre-Dialysis) 165/84 mmHg BP Sitting (Post-Dialysis) 126/68 mmHg Concurrent Access: falseAV Graft Upper Arm (Left) Arterial Sitting Heart Rate Pre-Dialysis 73 BPM Sitting H eart Rate Post-Dialysis 80 BPM Temperature Pre-Dialysis 98.4 degF Temperature Post -Dialysis 97.2 degF November 11, 2024 In-Center Hemodialysis Treatment 0614-06-06G78:36:08.000Z 0679-05-44I32:52:48.000Z BP Sitting (Pre-Dialysis) 127/64 mmHg BP Sitting (Post-Dialysis) 152/72 mmHg Concurrent Access: falseAV Graft Upper Arm (Left) Arterial Sitting Heart Rate Pre-Dialysis 77 BPM Sitting H eart Rate Post-Dialysis 73 BPM Temperature Pre-Dialysis 97.3 degF Temperature Post -Dialysis 97.6 degF November 09, 2024 In-Center Hemodialysis Treatment 3053-31-30V95:35:00.000Z 2424-79-89Y42:52:37.000Z BP Sitting (Pre-Dialysis) 176/88 mmHg BP Sitting (Post-Dialysis) 144/69 mmHg Concurrent Access: falseAV Graft Upper Arm (Left) Arterial Sitting Heart Rate Pre-Dialysis 79 BPM Sitting H eart Rate Post-Dialysis 73 BPM Temperature Pre-Dialysis 97.8 degF Temperature Post -Dialysis 97.8 degF November 07, 2024 In-Center Hemodialysis Treatment 7580-90-99Q23:37:01.000Z 8084-17-07K78:55:21.000Z BP Sitting (Pre-Dialysis) 175/92 mmHg BP Sitting (Post-Dialysis) 149/71 mmHg Concurrent Access: falseAV Graft Upper Arm (Left) Arterial Sitting Heart Rate Pre-Dialysis 77 BPM Sitting H eart Rate Post-Dialysis 79 BPM Temperature Pre-Dialysis 97.8 degF Temperature Post -Dialysis 97.6 degF November 04, 2024 In-Center Hemodialysis Treatment 2509-44-57L01:37:32.000Z 7880-88-13Q83:49:37.000Z BP Sitting (Pre-Dialysis) 137/68 mmHg BP Sitting (Post-Dialysis) 133/67 mmHg Concurrent Access: falseAV Graft Upper Arm (Left) Arterial Sitting Heart Rate Pre-Dialysis 75 BPM Sitting H eart Rate Post-Dialysis 72 BPM Temperature Pre-Dialysis 97.7 degF Temperature Post -Dialysis 97.6 degF November 02, 2024 In-Center Hemodialysis Treatment 1559-68-68Y37:28:18.000Z 9312-63-96O48:44:08.000Z BP Sitting (Pre-Dialysis) 157/84 mmHg BP Sitting (Post-Dialysis) 140/66 mmHg Concurrent Access: falseAV Graft Upper Arm (Left) Arterial Sitting Heart Rate Pre-Dialysis 78 BPM Sitting H eart Rate Post-Dialysis 75 BPM Temperature Pre-Dialysis 98.1 degF Temperature Post -Dialysis 97.8 degF October 31, 2024 In-Center Hemodialysis Treatment 5903-45-06J26:59:01.000Z 8974-85-78A27:14:03.000Z BP Sitting (Pre-Dialysis) 188/90 mmHg BP Sitting (Post-Dialysis) 193/104 mmHg Concurrent Access: falseAV Graft Upper Arm (Left) Arterial Sitting Heart Rate Pre-Dialysis 79 BPM Sitting H eart Rate Post-Dialysis 74 BPM Temperature Pre-Dialysis 97.6 degF Temperature Post -Dialysis 98 degF October 28, 2024 In-Center Hemodialysis Treatment 7868-94-74W42:46:26.000Z 8439-62-88R59:01:26.000Z BP Sitting (Pre-Dialysis) 177/91 mmHg BP Sitting (Post-Dialysis) 145/54 mmHg Concurrent Access: falseAV Graft Upper Arm (Left) Arterial Sitting Heart Rate Pre-Dialysis 83 BPM Sitting H eart Rate Post-Dialysis 72 BPM Temperature Pre-Dialysis 98.7 degF Temperature Post -Dialysis 97.2 degF October 26, 2024 In-Center Hemodialysis Treatment 4945-82-68G92:40:46.000Z 7753-41-89U16:39:06.000Z BP Sitting (Pre-Dialysis) 152/84 mmHg BP Sitting (Post-Dialysis) 187/88 mmHg Concurrent Access: falseAV Graft Upper Arm (Left) Arterial Sitting Heart Rate Pre-Dialysis 77 BPM Sitting H eart Rate Post-Dialysis 73 BPM Temperature Pre-Dialysis 98.6 degF Temperature Post -Dialysis 98 degF October 24, 2024 In-Center Hemodialysis Treatment 1983-11-66P62:39:39.000Z 4851-44-32A64:47:59.000Z BP Sitting (Pre-Dialysis) 177/80 mmHg BP Sitting (Post-Dialysis) 140/80 mmHg Concurrent Access: falseAV Graft Upper Arm (Left) Arterial Sitting Heart Rate Pre-Dialysis 72 BPM Sitting H eart Rate Post-Dialysis 78 BPM Temperature Pre-Dialysis 98.8 degF Temperature Post -Dialysis 97.6 degF October 21, 2024 In-Center Hemodialysis Treatment 2696-14-77Y16:35:05.000Z 6104-61-61O78:52:10.000Z BP Sitting (Pre-Dialysis) 151/71 mmHg BP Sitting (Post-Dialysis) 181/68 mmHg Concurrent Access: falseAV Graft Upper Arm (Left) Arterial Sitting Heart Rate Pre-Dialysis 78 BPM Sitting H eart Rate Post-Dialysis 60 BPM Temperature Pre-Dialysis 97.5 degF Temperature Post -Dialysis 97.5 degF October 19, 2024 In-Center Hemodialysis Treatment 9841-17-80R37:28:00.000Z 2568-88-78W07:45:03.000Z BP Sitting (Pre-Dialysis) 140/73 mmHg BP Sitting (Post-Dialysis) 134/67 mmHg Concurrent Access: falseAV Graft Upper Arm (Left) Arterial Sitting Heart Rate Pre-Dialysis 86 BPM Sitting H eart Rate Post-Dialysis 76 BPM Temperature Pre-Dialysis 97.8 degF Temperature Post -Dialysis 97.7 degF October 17, 2024 In-Center Hemodialysis Treatment 2099-11-89N39:35:00.000Z 5416-06-12D40:52:37.000Z BP Sitting (Pre-Dialysis) 178/90 mmHg BP Sitting (Post-Dialysis) 170/76 mmHg Concurrent Access: falseAV Graft Upper Arm (Left) Arterial Sitting Heart Rate Pre-Dialysis 71 BPM Sitting H eart Rate Post-Dialysis 68 BPM Temperature Pre-Dialysis 97.8 degF Temperature Post -Dialysis 97.4 degF October 14, 2024 In-Center Hemodialysis Treatment 0775-47-82T91:26:00.000Z 1969-35-61P04:46:45.000Z BP Sitting (Pre-Dialysis) 135/71 mmHg BP Sitting (Post-Dialysis) 166/101 mmHg Concurrent Access: falseAV Graft Upper Arm (Left) Arterial Sitting Heart Rate Pre-Dialysis 80 BPM Sitting H eart Rate Post-Dialysis 69 BPM Temperature Pre-Dialysis 97.8 degF Temperature Post -Dialysis 97.2 degF October 12, 2024 In-Center Hemodialysis Treatment 4694-11-88K80:28:53.000Z 9891-63-80Z11:44:43.000Z BP Sitting (Pre-Dialysis) 181/87 mmHg BP Sitting (Post-Dialysis) 159/81 mmHg Concurrent Access: falseAV Graft Upper Arm (Left) Arterial Sitting Heart Rate Pre-Dialysis 73 BPM Sitting H eart Rate Post-Dialysis 73 BPM Temperature Pre-Dialysis 98 degF Temperature Post -Dialysis 97.6 degF October 10, 2024 In-Center Hemodialysis Treatment 6458-65-14W96:05:00.000Z 4287-27-02X04:20:26.000Z BP Sitting (Pre-Dialysis) 200/103 mmHg BP Sitting (Post-Dialysis) 135/74 mmHg Concurrent Access: falseAV Graft Upper Arm (Left) Arterial Sitting Heart Rate Pre-Dialysis 85 BPM Sitting H eart Rate Post-Dialysis 64 BPM Temperature Pre-Dialysis 97.8 degF Temperature Post -Dialysis 97.8 degF October 07, 2024 In-Center Hemodialysis Treatment 4502-62-85B29:37:58.000Z 3975-01-68A51:59:38.000Z BP Sitting (Pre-Dialysis) 218/102 mmHg BP Sitting (Post-Dialysis) 151/66 mmHg Concurrent Access: falseAV Graft Upper Arm (Left) Arterial Sitting Heart Rate Pre-Dialysis 75 BPM Sitting H eart Rate Post-Dialysis 75 BPM Temperature Pre-Dialysis 97.8 degF Temperature Post -Dialysis 97.1 degF October 05, 2024 In-Center Hemodialysis Treatment 3108-40-48F48:28:20.000Z 9170-34-17F42:14:10.000Z BP Sitting (Pre-Dialysis) 175/76 mmHg BP Sitting (Post-Dialysis) 131/53 mmHg Concurrent Access: falseAV Graft Upper Arm (Left) Arterial Sitting Heart Rate Pre-Dialysis 70 BPM Sitting H eart Rate Post-Dialysis 73 BPM Temperature Pre-Dialysis 97.2 degF Temperature Post -Dialysis 97 degF October 03, 2024 In-Center Hemodialysis Treatment 0112-29-93E08:22:35.000Z 6127-59-92J02:38:00.000Z BP Sitting (Pre-Dialysis) 143/67 mmHg BP Sitting (Post-Dialysis) 187/80 mmHg Concurrent Access: falseAV Graft Upper Arm (Left) Arterial Sitting Heart Rate Pre-Dialysis 55 BPM Sitting H eart Rate Post-Dialysis 78 BPM Temperature Pre-Dialysis 97.1 degF Temperature Post -Dialysis 98.2 degF September 30, 2024 In-Center Hemodialysis Treatment 1357-20-93R83:57:07.000Z 5331-67-61H25:11:17.000Z BP Sitting (Pre-Dialysis) 132/74 mmHg BP Sitting (Post-Dialysis) 150/80 mmHg Concurrent Access: falseAV Graft Upper Arm (Left) Arterial Sitting Heart Rate Pre-Dialysis 78 BPM Sitting H eart Rate Post-Dialysis 78 BPM Temperature Pre-Dialysis 98.1 degF Temperature Post -Dialysis 98.3 degF September 28, 2024 In-Center Hemodialysis Treatment 3846-19-71I08:34:25.000Z 8676-32-21V71:49:00.000Z BP Sitting (Pre-Dialysis) 158/72 mmHg BP Sitting (Post-Dialysis) 169/84 mmHg Concurrent Access: falseAV Graft Upper Arm (Left) Arterial Sitting Heart Rate Pre-Dialysis 75 BPM Sitting H eart Rate Post-Dialysis 76 BPM Temperature Pre-Dialysis 97.6 degF Temperature Post -Dialysis 98.1 degF September 26, 2024 In-Center Hemodialysis Treatment 6639-51-82N66:23:31.000Z 2028-30-25U80:38:56.000Z BP Sitting (Pre-Dialysis) 184/100 mmHg BP Sitting (Post-Dialysis) 163/95 mmHg Concurrent Access: falseAV Graft Upper Arm (Left) Arterial Sitting Heart Rate Pre-Dialysis 82 BPM Sitting H eart Rate Post-Dialysis 80 BPM Temperature Pre-Dialysis 97.8 degF Temperature Post -Dialysis 98.1 degF September 23, 2024 In-Center Hemodialysis Treatment 4890-41-51O01:11:16.000Z 7899-28-81C10:32:31.000Z BP Sitting (Pre-Dialysis) 179/85 mmHg BP Sitting (Post-Dialysis) 163/66 mmHg Concurrent Access: falseAV Graft Upper Arm (Left) Arterial Sitting Heart Rate Pre-Dialysis 72 BPM Sitting H eart Rate Post-Dialysis 73 BPM Temperature Pre-Dialysis 98.4 degF Temperature Post -Dialysis 97.8 degF September 21, 2024 In-Center Hemodialysis Treatment 6931-01-89O31:03:34.000Z 8728-62-19K90:16:54.000Z BP Sitting (Pre-Dialysis) 186/96 mmHg BP Sitting (Post-Dialysis) 173/70 mmHg Concurrent Access: falseAV Graft Upper Arm (Left) Arterial Sitting Heart Rate Pre-Dialysis 76 BPM Sitting H eart Rate Post-Dialysis 73 BPM Temperature Pre-Dialysis 98.6 degF Temperature Post -Dialysis 97.7 degF September 19, 2024 In-Center Hemodialysis Treatment 3813-55-13A70:11:00.000Z 7706-28-35W38:29:55.000Z BP Sitting (Pre-Dialysis) 158/89 mmHg BP Sitting (Post-Dialysis) 176/82 mmHg Concurrent Access: falseAV Graft Upper Arm (Left) Arterial Sitting Heart Rate Pre-Dialysis 77 BPM Sitting H eart Rate Post-Dialysis 71 BPM Temperature Pre-Dialysis 97.8 degF Temperature Post -Dialysis 97.2 degF September 16, 2024 In-Center Hemodialysis Treatment 2571-86-49J45:13:16.000Z 3591-61-70M13:28:16.000Z BP Sitting (Pre-Dialysis) 179/91 mmHg BP Sitting (Post-Dialysis) 164/79 mmHg Concurrent Access: falseAV Graft Upper Arm (Left) Arterial Sitting Heart Rate Pre-Dialysis 96 BPM Sitting H eart Rate Post-Dialysis 74 BPM Temperature Pre-Dialysis 97.2 degF Temperature Post -Dialysis 97.6 degF September 14, 2024 In-Center Hemodialysis Treatment 5467-71-43B73:34:30.000Z 7962-12-38K95:49:55.000Z BP Sitting (Pre-Dialysis) 175/90 mmHg BP Sitting (Post-Dialysis) 157/74 mmHg Concurrent Access: falseAV Graft Upper Arm (Left) Arterial Sitting Heart Rate Pre-Dialysis 83 BPM Sitting H eart Rate Post-Dialysis 72 BPM Temperature Pre-Dialysis 97.2 degF Temperature Post -Dialysis 97.8 degF September 12, 2024 In-Center Hemodialysis Treatment 8228-74-22L68:27:29.000Z 5616-63-08G10:50:10.000Z BP Sitting (Pre-Dialysis) 153/87 mmHg BP Sitting (Post-Dialysis) 170/69 mmHg Concurrent Access: falseAV Graft Upper Arm (Left) Arterial Sitting Heart Rate Pre-Dialysis 77 BPM Sitting H eart Rate Post-Dialysis 80 BPM Temperature Pre-Dialysis 96.6 degF Temperature Post -Dialysis 97.2 degF September 09, 2024 In-Center Hemodialysis Treatment 0744-84-07U19:45:18.000Z 4991-92-76D02:03:38.000Z BP Sitting (Pre-Dialysis) 150/67 mmHg BP Sitting (Post-Dialysis) 145/74 mmHg Concurrent Access: falseAV Graft Upper Arm (Left) Arterial Sitting Heart Rate Pre-Dialysis 80 BPM Sitting H eart Rate Post-Dialysis 65 BPM Temperature Pre-Dialysis 98.5 degF Temperature Post -Dialysis 97.3 degF September 07, 2024 In-Center Hemodialysis Treatment 0468-36-50P02:45:00.000Z 9387-77-90N70:58:00.000Z BP Sitting (Pre-Dialysis) 162/83 mmHg BP Sitting (Post-Dialysis) 147/78 mmHg Concurrent Access: falseAV Graft Upper Arm (Left) Arterial Sitting Heart Rate Pre-Dialysis 85 BPM Sitting H eart Rate Post-Dialysis 76 BPM Temperature Pre-Dialysis 97.2 degF Temperature Post -Dialysis 97.2 degF September 05, 2024 In-Center Hemodialysis Treatment 0433-69-99J71:27:00.000Z 2832-86-60K95:44:23.000Z BP Sitting (Pre-Dialysis) 186/76 mmHg BP Sitting (Post-Dialysis) 171/90 mmHg Concurrent Access: falseAV Graft Upper Arm (Left) Arterial Sitting Heart Rate Pre-Dialysis 79 BPM Sitting H eart Rate Post-Dialysis 78 BPM Temperature Pre-Dialysis 97.6 degF Temperature Post -Dialysis 97.3 degF September 02, 2024 In-Center Hemodialysis Treatment 9079-70-82M62:26:00.000Z 9194-37-43Q16:41:00.000Z BP Sitting (Pre-Dialysis) 168/66 mmHg BP Sitting (Post-Dialysis) 155/69 mmHg Concurrent Access: falseAV Graft Upper Arm (Left) Arterial Sitting Heart Rate Pre-Dialysis 71 BPM Sitting H eart Rate Post-Dialysis 68 BPM Temperature Pre-Dialysis 98 degF Temperature Post -Dialysis 97.2 degF August 31, 2024 In-Center Hemodialysis Treatment 9049-17-55E10:47:27.000Z 1777-51-85O68:02:02.000Z BP Sitting (Pre-Dialysis) 159/70 mmHg BP Sitting (Post-Dialysis) 175/88 mmHg Concurrent Access: falseAV Graft Upper Arm (Left) Arterial Sitting Heart Rate Pre-Dialysis 66 BPM Sitting H eart Rate Post-Dialysis 72 BPM Temperature Pre-Dialysis 98 degF Temperature Post -Dialysis 97.3 degF August 29, 2024 In-Center Hemodialysis Treatment 0329-29-02G14:43:24.000Z 4088-55-11S07:04:13.000Z BP Sitting (Pre-Dialysis) 203/105 mmHg BP Sitting (Post-Dialysis) 144/72 mmHg Concurrent Access: falseAV Graft Upper Arm (Left) Arterial Sitting Heart Rate Pre-Dialysis 78 BPM Sitting H eart Rate Post-Dialysis 78 BPM Temperature Pre-Dialysis 97.7 degF Temperature Post -Dialysis 97.2 degF August 26, 2024 In-Center Hemodialysis Treatment 2319-26-94O02:43:43.000Z 5842-80-16L38:59:08.000Z BP Sitting (Pre-Dialysis) 178/105 mmHg BP Sitting (Post-Dialysis) 165/75 mmHg Concurrent Access: falseAV Graft Upper Arm (Left) Arterial Sitting Heart Rate Pre-Dialysis 82 BPM Sitting H eart Rate Post-Dialysis 70 BPM Temperature Pre-Dialysis 97.3 degF Temperature Post -Dialysis 97.5 degF August 24, 2024 In-Center Hemodialysis Treatment 5658-74-60G22:30:00.000Z 2425-63-04I64:48:51.000Z BP Sitting (Pre-Dialysis) 172/81 mmHg BP Sitting (Post-Dialysis) 137/73 mmHg Concurrent Access: falseAV Graft Upper Arm (Left) Arterial Sitting Heart Rate Pre-Dialysis 82 BPM Sitting H eart Rate Post-Dialysis 79 BPM Temperature Pre-Dialysis 97.8 degF Temperature Post -Dialysis 97.2 degF August 22, 2024 In-Center Hemodialysis Treatment 2256-87-99D11:43:18.000Z 8146-49-07K73:58:43.000Z BP Sitting (Pre-Dialysis) 180/86 mmHg BP Sitting (Post-Dialysis) 171/76 mmHg Concurrent Access: falseAV Graft Upper Arm (Left) Arterial Sitting Heart Rate Pre-Dialysis 80 BPM Sitting H eart Rate Post-Dialysis 75 BPM Temperature Pre-Dialysis 97.2 degF Temperature Post -Dialysis 97.6 degF August 19, 2024 In-Center Hemodialysis Treatment 5248-09-19U91:48:00.000Z 6941-36-86U96:49:59.000Z BP Sitting (Pre-Dialysis) 182/78 mmHg BP Sitting (Post-Dialysis) 154/88 mmHg Concurrent Access: falseAV Graft Upper Arm (Left) Arterial Sitting Heart Rate Pre-Dialysis 76 BPM Sitting H eart Rate Post-Dialysis 75 BPM Temperature Pre-Dialysis 97.8 degF Temperature Post -Dialysis 97.8 degF August 17, 2024 In-Center Hemodialysis Treatment 6568-18-38P51:36:32.000Z 8503-74-24P44:47:47.000Z BP Sitting (Pre-Dialysis) 171/97 mmHg BP Sitting (Post-Dialysis) 142/55 mmHg Concurrent Access: falseAV Graft Upper Arm (Left) Arterial Sitting Heart Rate Pre-Dialysis 88 BPM Sitting H eart Rate Post-Dialysis 65 BPM Temperature Pre-Dialysis 98.1 degF Temperature Post -Dialysis 97.2 degF August 15, 2024 In-Center Hemodialysis Treatment 1421-95-89T18:42:46.000Z 1917-90-81B23:55:16.000Z BP Sitting (Pre-Dialysis) 158/80 mmHg BP Sitting (Post-Dialysis) 159/85 mmHg Concurrent Access: falseAV Graft Upper Arm (Left) Arterial Sitting Heart Rate Pre-Dialysis 70 BPM Sitting H eart Rate Post-Dialysis 82 BPM Temperature Pre-Dialysis 97.6 degF Temperature Post -Dialysis 97.6 degF August 12, 2024 In-Center Hemodialysis Treatment 6578-13-63X99:39:40.000Z 6148-46-50D08:57:35.000Z BP Sitting (Pre-Dialysis) 154/82 mmHg BP Sitting (Post-Dialysis) 179/95 mmHg Concurrent Access: falseAV Graft Upper Arm (Left) Arterial Sitting Heart Rate Pre-Dialysis 74 BPM Sitting H eart Rate Post-Dialysis 71 BPM Temperature Pre-Dialysis 97.1 degF Temperature Post -Dialysis 97.7 degF August 10, 2024 In-Center Hemodialysis Treatment 4464-78-78B30:29:12.000Z 9236-86-16J35:46:59.000Z BP Sitting (Pre-Dialysis) 186/87 mmHg BP Sitting (Post-Dialysis) 162/70 mmHg Concurrent Access: falseAV Graft Upper Arm (Left) Arterial Sitting Heart Rate Pre-Dialysis 79 BPM Sitting H eart Rate Post-Dialysis 78 BPM Temperature Pre-Dialysis 97.9 degF Temperature Post -Dialysis 97.5 degF August 08, 2024 In-Center Hemodialysis Treatment 0770-29-47I90:13:27.000Z 6375-75-24B91:25:32.000Z BP Sitting (Pre-Dialysis) 196/97 mmHg BP Sitting (Post-Dialysis) 126/76 mmHg Concurrent Access: falseAV Graft Upper Arm (Left) Arterial Sitting Heart Rate Pre-Dialysis 75 BPM Sitting H eart Rate Post-Dialysis 79 BPM Temperature Pre-Dialysis 97.2 degF Temperature Post -Dialysis 97.2 degF August 05, 2024 In-Center Hemodialysis Treatment 8372-11-44F11:38:59.000Z 7713-12-40Q62:55:39.000Z BP Sitting (Pre-Dialysis) 187/87 mmHg BP Sitting (Post-Dialysis) 177/80 mmHg Concurrent Access: falseAV Graft Upper Arm (Left) Arterial Sitting Heart Rate Pre-Dialysis 85 BPM Sitting H eart Rate Post-Dialysis 73 BPM Temperature Pre-Dialysis 98 degF Temperature Post -Dialysis 97.2 degF August 03, 2024 In-Center Hemodialysis Treatment 6918-34-87N59:35:00.000Z 9397-11-79W65:53:04.000Z BP Sitting (Pre-Dialysis) 182/87 mmHg BP Sitting (Post-Dialysis) 143/78 mmHg Concurrent Access: falseAV Graft Upper Arm (Left) Arterial Sitting Heart Rate Pre-Dialysis 65 BPM Sitting H eart Rate Post-Dialysis 74 BPM Temperature Pre-Dialysis 97.8 degF Temperature Post -Dialysis 97.6 degF August 01, 2024 In-Center Hemodialysis Treatment 4041-11-21A00:01:28.000Z 6600-25-61P65:14:48.000Z BP Sitting (Pre-Dialysis) 190/86 mmHg BP Sitting (Post-Dialysis) 140/66 mmHg Concurrent Access: falseAV Graft Upper Arm (Left) Arterial Sitting Heart Rate Pre-Dialysis 80 BPM BP Standing (Post-Dialysis) 153/91 mmHg Temperature Pre-Dialysis 97.8 degF Sitting Heart Ra te Post-Dialysis 91 BPM Standing Heart Rate Post-Mayra lysis 83 BPM Temperature Post-Dialysis 98 .5 degF July 29, 2024 In-Center Hemodialysis Treatment 9529-13-76B63:31:25.000Z 6412-56-85C92:47:15.000Z BP Sitting (Pre-Dialysis) 155/38 mmHg BP Sitting (Post-Dialysis) 177/74 mmHg Concurrent Access: falseAV Graft Upper Arm (Left) Arterial Sitting Heart Rate Pre-Dialysis 72 BPM Sitting H eart Rate Post-Dialysis 59 BPM Temperature Pre-Dialysis 97 degF Temperature Post -Dialysis 97.8 degF July 27, 2024 In-Center Hemodialysis Treatment 8766-56-28N47:46:25.000Z 1711-76-15Z87:04:45.000Z BP Sitting (Pre-Dialysis) 188/101 mmHg BP Sitting (Post-Dialysis) 158/75 mmHg Concurrent Access: falseAV Graft Upper Arm (Left) Arterial Sitting Heart Rate Pre-Dialysis 76 BPM Sitting H eart Rate Post-Dialysis 77 BPM Temperature Pre-Dialysis 97.8 degF Temperature Post -Dialysis 97.6 degF July 25, 2024 In-Center Hemodialysis Treatment 0248-81-91C11:31:06.000Z 7837-19-45C31:01:56.000Z BP Sitting (Pre-Dialysis) 170/76 mmHg BP Sitting (Post-Dialysis) 150/75 mmHg Concurrent Access: falseAV Graft Upper Arm (Left) Arterial Sitting Heart Rate Pre-Dialysis 75 BPM Sitting H eart Rate Post-Dialysis 80 BPM Temperature Pre-Dialysis 98.4 degF Temperature Post -Dialysis 97.8 degF July 22, 2024 In-Center Hemodialysis Treatment 1112-95-00U16:26:11.000Z 9368-07-76S93:47:51.000Z BP Sitting (Pre-Dialysis) 161/78 mmHg BP Sitting (Post-Dialysis) 135/70 mmHg Concurrent Access: falseAV Graft Upper Arm (Left) Arterial Sitting Heart Rate Pre-Dialysis 82 BPM Sitting H eart Rate Post-Dialysis 78 BPM Temperature Pre-Dialysis 98.4 degF Temperature Post -Dialysis 97.8 degF July 20, 2024 In-Center Hemodialysis Treatment 5794-31-93X02:15:39.000Z 4400-02-78E48:40:14.000Z BP Sitting (Pre-Dialysis) 178/71 mmHg BP Sitting (Post-Dialysis) 142/80 mmHg Concurrent Access: falseAV Graft Upper Arm (Left) Arterial Sitting Heart Rate Pre-Dialysis 81 BPM Sitting H eart Rate Post-Dialysis 82 BPM Temperature Pre-Dialysis 97.3 degF Temperature Post -Dialysis 97.8 degF July 18, 2024 In-Center Hemodialysis Treatment 0468-20-59J85:18:38.000Z 0485-28-55E10:39:53.000Z BP Sitting (Pre-Dialysis) 196/75 mmHg BP Sitting (Post-Dialysis) 176/89 mmHg Concurrent Access: falseAV Graft Upper Arm (Left) Arterial Sitting Heart Rate Pre-Dialysis 88 BPM Sitting H eart Rate Post-Dialysis 79 BPM Temperature Pre-Dialysis 96.8 degF Temperature Post -Dialysis 97.6 degF July 15, 2024 In-Center Hemodialysis Treatment 6496-90-02I49:29:00.000Z 9063-48-58W45:56:04.000Z BP Sitting (Pre-Dialysis) 183/88 mmHg BP Sitting (Post-Dialysis) 188/73 mmHg Concurrent Access: falseAV Graft Upper Arm (Left) Arterial Sitting Heart Rate Pre-Dialysis 80 BPM Sitting H eart Rate Post-Dialysis 72 BPM Temperature Pre-Dialysis 97.8 degF Temperature Post -Dialysis 97.8 degF July 13, 2024 In-Center Hemodialysis Treatment 2320-25-85V59:37:13.000Z 8157-65-18P93:49:18.000Z BP Sitting (Pre-Dialysis) 185/90 mmHg BP Sitting (Post-Dialysis) 143/91 mmHg Concurrent Access: falseAV Graft Upper Arm (Left) Arterial Sitting Heart Rate Pre-Dialysis 76 BPM Sitting H eart Rate Post-Dialysis 64 BPM Temperature Pre-Dialysis 97.2 degF Temperature Post -Dialysis 97.2 degF July 11, 2024 In-Center Hemodialysis Treatment 9978-87-05I25:31:00.000Z 1137-68-89D31:49:12.000Z BP Sitting (Pre-Dialysis) 163/90 mmHg BP Sitting (Post-Dialysis) 102/85 mmHg Concurrent Access: falseAV Graft Upper Arm (Left) Arterial Sitting Heart Rate Pre-Dialysis 81 BPM Sitting H eart Rate Post-Dialysis 76 BPM Temperature Pre-Dialysis 97.8 degF Temperature Post -Dialysis 97.2 degF July 08, 2024 In-Center Hemodialysis Treatment 7511-42-79L45:44:12.000Z 2604-24-46I87:01:42.000Z BP Sitting (Pre-Dialysis) 159/94 mmHg BP Sitting (Post-Dialysis) 144/88 mmHg Concurrent Access: falseAV Graft Upper Arm (Left) Arterial Sitting Heart Rate Pre-Dialysis 84 BPM Sitting H eart Rate Post-Dialysis 113 BPM Temperature Pre-Dialysis 97.2 degF Temperature Post -Dialysis 97.2 degF July 04, 2024 In-Center Hemodialysis Treatment 3515-83-96Y58:04:00.000Z 2596-72-42H08:21:03.000Z BP Sitting (Pre-Dialysis) 181/76 mmHg BP Sitting (Post-Dialysis) 157/77 mmHg Concurrent Access: falseAV Graft Upper Arm (Left) Arterial Sitting Heart Rate Pre-Dialysis 76 BPM Sitting H eart Rate Post-Dialysis 76 BPM Temperature Pre-Dialysis 97.8 degF Temperature Post -Dialysis 97.8 degF July 01, 2024 In-Center Hemodialysis Treatment 9513-32-44M26:30:56.000Z 0251-16-21D04:47:36.000Z BP Sitting (Pre-Dialysis) 183/85 mmHg BP Sitting (Post-Dialysis) 175/92 mmHg Concurrent Access: falseAV Graft Upper Arm (Left) Arterial Sitting Heart Rate Pre-Dialysis 79 BPM Sitting H eart Rate Post-Dialysis 82 BPM Temperature Pre-Dialysis 97.4 degF Temperature Post -Dialysis 97.2 degF June 29, 2024 In-Center Hemodialysis Treatment 0752-98-96W20:39:00.000Z 0551-48-47I56:54:21.000Z BP Sitting (Pre-Dialysis) 176/82 mmHg BP Sitting (Post-Dialysis) 146/71 mmHg Concurrent Access: falseAV Graft Upper Arm (Left) Arterial Sitting Heart Rate Pre-Dialysis 77 BPM Sitting H eart Rate Post-Dialysis 75 BPM Temperature Pre-Dialysis 97.8 degF Temperature Post -Dialysis 97.2 degF June 27, 2024 In-Center Hemodialysis Treatment 2927-64-11W10:14:23.000Z 7623-34-11E23:31:53.000Z BP Sitting (Pre-Dialysis) 185/70 mmHg BP Sitting (Post-Dialysis) 183/63 mmHg Concurrent Access: falseAV Graft Upper Arm (Left) Arterial Sitting Heart Rate Pre-Dialysis 75 BPM Sitting H eart Rate Post-Dialysis 43 BPM Temperature Pre-Dialysis 97 degF Temperature Post -Dialysis 97.2 degF June 24, 2024 In-Center Hemodialysis Treatment 2584-84-47J27:40:00.000Z 5485-62-83V29:58:05.000Z BP Sitting (Pre-Dialysis) 186/82 mmHg BP Sitting (Post-Dialysis) 150/79 mmHg Concurrent Access: falseAV Graft Upper Arm (Left) Arterial Sitting Heart Rate Pre-Dialysis 80 BPM Sitting H eart Rate Post-Dialysis 75 BPM Temperature Pre-Dialysis 97.7 degF Temperature Post -Dialysis 97.2 degF June 22, 2024 In-Center Hemodialysis Treatment 2607-16-72H64:40:59.000Z 0464-29-90V98:57:39.000Z BP Sitting (Pre-Dialysis) 170/86 mmHg BP Sitting (Post-Dialysis) 157/78 mmHg Concurrent Access: falseAV Graft Upper Arm (Left) Arterial Sitting Heart Rate Pre-Dialysis 83 BPM Sitting H eart Rate Post-Dialysis 69 BPM Temperature Pre-Dialysis 97.9 degF Temperature Post -Dialysis 97.2 degF June 20, 2024 In-Center Hemodialysis Treatment 4992-20-90I96:43:34.000Z 4866-76-57B17:01:29.000Z BP Sitting (Pre-Dialysis) 182/96 mmHg BP Sitting (Post-Dialysis) 158/103 mmHg Concurrent Access: falseAV Graft Upper Arm (Left) Arterial Sitting Heart Rate Pre-Dialysis 84 BPM Sitting H eart Rate Post-Dialysis 77 BPM Temperature Pre-Dialysis 98.3 degF Temperature Post -Dialysis 97.2 degF June 17, 2024 In-Center Hemodialysis Treatment 8933-46-42F66:34:23.000Z 1967-05-43J53:51:03.000Z BP Sitting (Pre-Dialysis) 165/94 mmHg BP Sitting (Post-Dialysis) 162/78 mmHg Concurrent Access: falseAV Graft Upper Arm (Left) Arterial Sitting Heart Rate Pre-Dialysis 76 BPM Sitting H eart Rate Post-Dialysis 69 BPM Temperature Pre-Dialysis 97.9 degF Temperature Post -Dialysis 98.1 degF June 15, 2024 In-Center Hemodialysis Treatment 1243-82-80J36:47:43.000Z 4399-79-70F41:01:28.000Z BP Sitting (Pre-Dialysis) 154/81 mmHg BP Sitting (Post-Dialysis) 157/73 mmHg Concurrent Access: falseAV Graft Upper Arm (Left) Arterial Sitting Heart Rate Pre-Dialysis 88 BPM Sitting H eart Rate Post-Dialysis 70 BPM Temperature Pre-Dialysis 97.2 degF Temperature Post -Dialysis 98 degF June 13, 2024 In-Center Hemodialysis Treatment 0274-36-57G64:40:40.000Z 2315-57-31E28:58:10.000Z BP Sitting (Pre-Dialysis) 154/79 mmHg BP Sitting (Post-Dialysis) 159/89 mmHg Concurrent Access: falseAV Graft Upper Arm (Left) Arterial Sitting Heart Rate Pre-Dialysis 81 BPM Sitting H eart Rate Post-Dialysis 69 BPM Temperature Pre-Dialysis 97.2 degF Temperature Post -Dialysis 97.4 degF June 10, 2024 In-Center Hemodialysis Treatment 7078-10-28R38:24:10.000Z 8776-91-53B41:39:35.000Z BP Sitting (Pre-Dialysis) 152/63 mmHg BP Sitting (Post-Dialysis) 176/82 mmHg Concurrent Access: falseAV Graft Upper Arm (Left) Arterial Sitting Heart Rate Pre-Dialysis 78 BPM Sitting H eart Rate Post-Dialysis 70 BPM Temperature Pre-Dialysis 97.6 degF Temperature Post -Dialysis 97.8 degF June 08, 2024 In-Center Hemodialysis Treatment 7051-28-38N76:47:17.000Z 3118-28-38B40:01:27.000Z BP Sitting (Pre-Dialysis) 147/76 mmHg BP Sitting (Post-Dialysis) 122/62 mmHg Concurrent Access: falseAV Graft Upper Arm (Left) Arterial Sitting Heart Rate Pre-Dialysis 86 BPM Sitting H eart Rate Post-Dialysis 79 BPM Temperature Pre-Dialysis 97.2 degF Temperature Post -Dialysis 97.3 degF June 06, 2024 In-Center Hemodialysis Treatment 3665-88-78I13:31:02.000Z 1583-09-22E97:42:42.000Z BP Sitting (Pre-Dialysis) 168/87 mmHg BP Sitting (Post-Dialysis) 135/75 mmHg Concurrent Access: falseAV Graft Upper Arm (Left) Arterial Sitting Heart Rate Pre-Dialysis 84 BPM Sitting H eart Rate Post-Dialysis 85 BPM Temperature Pre-Dialysis 97.2 degF Temperature Post -Dialysis 97.3 degF June 03, 2024 In-Center Hemodialysis Treatment 9254-86-53G74:34:16.000Z 2722-36-01D54:50:06.000Z BP Sitting (Pre-Dialysis) 109/57 mmHg BP Sitting (Post-Dialysis) 151/77 mmHg Concurrent Access: falseAV Graft Upper Arm (Left) Arterial Sitting Heart Rate Pre-Dialysis 89 BPM Sitting H eart Rate Post-Dialysis 77 BPM Temperature Pre-Dialysis 97.2 degF Temperature Post -Dialysis 97.5 degF June 01, 2024 In-Center Hemodialysis Treatment 5217-50-45J94:40:47.000Z 8872-07-93F10:10:47.000Z BP Sitting (Pre-Dialysis) 147/65 mmHg BP Sitting (Post-Dialysis) 177/72 mmHg Concurrent Access: falseAV Graft Upper Arm (Left) Arterial Sitting Heart Rate Pre-Dialysis 82 BPM Sitting H eart Rate Post-Dialysis 78 BPM Temperature Pre-Dialysis 97.9 degF Temperature Post -Dialysis 97.6 degF May 30, 2024 In-Center Hemodialysis Treatment [id number]:38:36.000Z 0816-83-90Z34:53:36.000Z BP Sitting (Pre-Dialysis) 168/99 mmHg BP Sitting (Post-Dialysis) 176/97 mmHg Concurrent Access: falseAV Graft Upper Arm (Left) Arterial Sitting Heart Rate Pre-Dialysis 84 BPM Sitting H eart Rate Post-Dialysis 69 BPM Temperature Pre-Dialysis 97.6 degF Temperature Post -Dialysis 97.9 degF May 25, 2024 In-Center Hemodialysis Treatment 9861-31-16D88:59:47.000Z 7941-46-41B85:59:47.000Z BP Sitting (Pre-Dialysis) 169/62 mmHg BP Sitting (Post-Dialysis) 168/91 mmHg Concurrent Access: falseAV Graft Upper Arm (Left) Arterial Sitting Heart Rate Pre-Dialysis 72 BPM Sitting H eart Rate Post-Dialysis 79 BPM Temperature Pre-Dialysis 97.9 degF Temperature Post -Dialysis 97.6 degF May 20, 2024 In-Center Hemodialysis Treatment 4715-23-20I40:18:12.000Z 5840-59-36H91:31:57.000Z BP Sitting (Pre-Dialysis) 165/84 mmHg BP Sitting (Post-Dialysis) 166/80 mmHg Concurrent Access: falseAV Graft Upper Arm (Left) Arterial Sitting Heart Rate Pre-Dialysis 77 BPM Sitting H eart Rate Post-Dialysis 78 BPM Temperature Pre-Dialysis 97.2 degF Temperature Post -Dialysis 97.2 degF May 17, 2024 In-Center Hemodialysis Treatment 9121-32-40O24:31:17.000Z 9569-46-74Q96:46:17.000Z BP Sitting (Pre-Dialysis) 148/82 mmHg BP Sitting (Post-Dialysis) 154/65 mmHg Concurrent Access: falseAV Graft Upper Arm (Left) Arterial Sitting Heart Rate Pre-Dialysis 92 BPM Sitting H eart Rate Post-Dialysis 73 BPM Temperature Pre-Dialysis 98.1 degF Temperature Post -Dialysis 98.1 degF May 16, 2024 In-Center Hemodialysis Treatment 6014-62-33D52:23:42.000Z 6601-97-29C64:39:57.000Z BP Sitting (Pre-Dialysis) 177/90 mmHg BP Sitting (Post-Dialysis) 159/87 mmHg Concurrent Access: falseAV Graft Upper Arm (Left) Arterial Sitting Heart Rate Pre-Dialysis 83 BPM Sitting H eart Rate Post-Dialysis 70 BPM Temperature Pre-Dialysis 97.8 degF Temperature Post -Dialysis 97.8 degF May 13, 2024 In-Center Hemodialysis Treatment 2735-23-73C59:41:09.000Z 8311-54-82P35:54:29.000Z BP Sitting (Pre-Dialysis) 150/76 mmHg BP Sitting (Post-Dialysis) 174/92 mmHg Concurrent Access: falseAV Graft Upper Arm (Left) Arterial Sitting Heart Rate Pre-Dialysis 93 BPM Sitting H eart Rate Post-Dialysis 70 BPM Temperature Pre-Dialysis 97.4 degF Temperature Post -Dialysis 98.2 degF May 12, 2024 In-Center Hemodialysis Treatment 3264-19-72S25:14:24.000Z 9465-18-03T32:28:34.000Z BP Sitting (Pre-Dialysis) 234/74 mmHg BP Sitting (Post-Dialysis) 184/95 mmHg Concurrent Access: falseAV Graft Upper Arm (Left) Arterial Sitting Heart Rate Pre-Dialysis 91 BPM Sitting H eart Rate Post-Dialysis 72 BPM Temperature Pre-Dialysis 97.2 degF Temperature Post -Dialysis 97.5 degF May 09, 2024 In-Center Hemodialysis Treatment 6370-26-40C04:09:42.000Z 1165-72-79L22:23:52.000Z BP Sitting (Pre-Dialysis) 147/82 mmHg BP Sitting (Post-Dialysis) 160/87 mmHg Concurrent Access: falseAV Graft Upper Arm (Left) Arterial Sitting Heart Rate Pre-Dialysis 81 BPM Sitting H eart Rate Post-Dialysis 84 BPM Temperature Pre-Dialysis 98.1 degF Temperature Post -Dialysis 97.6 degF May 06, 2024 In-Center Hemodialysis Treatment 6744-32-98G66:48:08.000Z 9983-42-86T44:03:08.000Z BP Sitting (Pre-Dialysis) 176/86 mmHg BP Sitting (Post-Dialysis) 161/77 mmHg Concurrent Access: falseAV Graft Upper Arm (Left) Arterial Sitting Heart Rate Pre-Dialysis 82 BPM Sitting H eart Rate Post-Dialysis 73 BPM Temperature Pre-Dialysis 97.2 degF Temperature Post -Dialysis 97.5 degF May 04, 2024 In-Center Hemodialysis Treatment 7561-68-79R83:33:00.000Z 4351-39-36C98:53:31.000Z BP Sitting (Pre-Dialysis) 132/76 mmHg BP Sitting (Post-Dialysis) 199/82 mmHg Concurrent Access: falseAV Graft Upper Arm (Left) Arterial Sitting Heart Rate Pre-Dialysis 87 BPM Sitting H eart Rate Post-Dialysis 76 BPM Temperature Pre-Dialysis 97.5 degF Temperature Post -Dialysis 97.2 degF May 02, 2024 In-Center Hemodialysis Treatment 5889-97-08O33:33:55.000Z 5156-52-96B60:50:10.000Z BP Sitting (Pre-Dialysis) 174/81 mmHg BP Sitting (Post-Dialysis) 180/94 mmHg Concurrent Access: falseAV Graft Upper Arm (Left) Arterial Sitting Heart Rate Pre-Dialysis 82 BPM Sitting H eart Rate Post-Dialysis 75 BPM Temperature Pre-Dialysis 97.6 degF Temperature Post -Dialysis 97.8 degF April 29, 2024 In-Center Hemodialysis Treatment 0770-46-38F33:26:41.000Z 8431-07-67X27:26:16.000Z BP Sitting (Pre-Dialysis) 146/68 mmHg BP Sitting (Post-Dialysis) 201/90 mmHg Concurrent Access: falseAV Graft Upper Arm (Left) Arterial Sitting Heart Rate Pre-Dialysis 78 BPM Sitting H eart Rate Post-Dialysis 78 BPM Temperature Pre-Dialysis 98.6 degF Temperature Post -Dialysis 97.8 degF April 27, 2024 In-Center Hemodialysis Treatment 9344-03-16M46:48:19.000Z 5001-84-52T45:06:14.000Z BP Sitting (Pre-Dialysis) 145/73 mmHg BP Sitting (Post-Dialysis) 143/70 mmHg Concurrent Access: falseAV Graft Upper Arm (Left) Arterial Sitting Heart Rate Pre-Dialysis 79 BPM Sitting H eart Rate Post-Dialysis 79 BPM Temperature Pre-Dialysis 97.2 degF Temperature Post -Dialysis 97.4 degF April 25, 2024 In-Center Hemodialysis Treatment 6322-41-03K19:25:03.000Z 4801-37-57K94:34:38.000Z BP Sitting (Pre-Dialysis) 193/87 mmHg BP Sitting (Post-Dialysis) 160/95 mmHg Concurrent Access: falseAV Graft Upper Arm (Left) Arterial Sitting Heart Rate Pre-Dialysis 86 BPM Sitting H eart Rate Post-Dialysis 83 BPM Temperature Pre-Dialysis 97.6 degF Temperature Post -Dialysis 97.5 degF April 22, 2024 In-Center Hemodialysis Treatment 0054-43-95X19:44:56.000Z 2576-62-12A51:02:01.000Z BP Sitting (Pre-Dialysis) 196/89 mmHg BP Sitting (Post-Dialysis) 141/74 mmHg Concurrent Access: falseAV Graft Upper Arm (Left) Arterial Sitting Heart Rate Pre-Dialysis 78 BPM Sitting H eart Rate Post-Dialysis 72 BPM Temperature Pre-Dialysis 98.1 degF Temperature Post -Dialysis 97.6 degF April 20, 2024 In-Center Hemodialysis Treatment 0454-69-38O92:51:31.000Z 3405-95-49U14:06:31.000Z BP Sitting (Pre-Dialysis) 144/71 mmHg BP Sitting (Post-Dialysis) 136/78 mmHg Concurrent Access: falseAV Graft Upper Arm (Left) Arterial Sitting Heart Rate Pre-Dialysis 79 BPM Sitting H eart Rate Post-Dialysis 76 BPM Temperature Pre-Dialysis 98.1 degF Temperature Post -Dialysis 98.2 degF April 18, 2024 In-Center Hemodialysis Treatment 6385-05-90B12:15:04.000Z 7578-41-64G16:30:54.000Z BP Sitting (Pre-Dialysis) 183/89 mmHg BP Sitting (Post-Dialysis) 162/87 mmHg Concurrent Access: falseAV Graft Upper Arm (Left) Arterial Sitting Heart Rate Pre-Dialysis 84 BPM Sitting H eart Rate Post-Dialysis 78 BPM Temperature Pre-Dialysis 98.2 degF Temperature Post -Dialysis 97.5 degF April 15, 2024 In-Center Hemodialysis Treatment 3492-10-55D43:32:09.000Z 6318-42-62V90:53:24.000Z BP Sitting (Pre-Dialysis) 178/99 mmHg BP Sitting (Post-Dialysis) 171/89 mmHg Concurrent Access: falseAV Graft Upper Arm (Left) Arterial Sitting Heart Rate Pre-Dialysis 83 BPM Sitting H eart Rate Post-Dialysis 79 BPM Temperature Pre-Dialysis 97.8 degF Temperature Post -Dialysis 97.8 degF April 13, 2024 In-Center Hemodialysis Treatment 2078-43-43O28:43:00.000Z 3452-10-85R76:01:17.000Z BP Sitting (Pre-Dialysis) 163/79 mmHg BP Sitting (Post-Dialysis) 158/71 mmHg Concurrent Access: falseAV Graft Upper Arm (Left) Arterial Sitting Heart Rate Pre-Dialysis 76 BPM Sitting H eart Rate Post-Dialysis 74 BPM Temperature Pre-Dialysis 97.8 degF Temperature Post -Dialysis 97.6 degF April 11, 2024 In-Center Hemodialysis Treatment 5499-84-58H36:37:10.000Z 3278-98-57M45:55:30.000Z BP Sitting (Pre-Dialysis) 195/95 mmHg BP Sitting (Post-Dialysis) 155/77 mmHg Concurrent Access: falseAV Graft Upper Arm (Left) Arterial Sitting Heart Rate Pre-Dialysis 85 BPM Sitting H eart Rate Post-Dialysis 71 BPM Temperature Pre-Dialysis 98.2 degF Temperature Post -Dialysis 97.8 degF April 08, 2024 In-Center Hemodialysis Treatment 7114-41-21H82:40:14.000Z 2341-16-70O49:58:34.000Z BP Sitting (Pre-Dialysis) 165/91 mmHg BP Sitting (Post-Dialysis) 131/71 mmHg Concurrent Access: falseAV Graft Upper Arm (Left) Arterial Sitting Heart Rate Pre-Dialysis 79 BPM Sitting H eart Rate Post-Dialysis 66 BPM Temperature Pre-Dialysis 97.4 degF Temperature Post -Dialysis 97.2 degF April 06, 2024 In-Center Hemodialysis Treatment 4612-34-76D29:46:26.000Z 1034-16-71Q85:43:06.000Z BP Sitting (Pre-Dialysis) 189/89 mmHg BP Sitting (Post-Dialysis) 171/58 mmHg Concurrent Access: falseAV Graft Upper Arm (Left) Arterial Sitting Heart Rate Pre-Dialysis 69 BPM Sitting H eart Rate Post-Dialysis 67 BPM Temperature Pre-Dialysis 98.6 degF Temperature Post -Dialysis 97.9 degF April 04, 2024 In-Center Hemodialysis Treatment 5694-19-62U29:33:26.000Z 1805-31-04J29:35:31.000Z BP Sitting (Pre-Dialysis) 159/87 mmHg BP Sitting (Post-Dialysis) 161/79 mmHg Concurrent Access: falseAV Graft Upper Arm (Left) Arterial Sitting Heart Rate Pre-Dialysis 85 BPM Sitting H eart Rate Post-Dialysis 80 BPM Temperature Pre-Dialysis 97.2 degF Temperature Post -Dialysis 97 degF April 01, 2024 In-Center Hemodialysis Treatment 7449-39-38Z80:37:00.000Z 5623-35-40Q92:55:50.000Z BP Sitting (Pre-Dialysis) 179/88 mmHg BP Sitting (Post-Dialysis) 167/92 mmHg Concurrent Access: falseAV Graft Upper Arm (Left) Arterial Sitting Heart Rate Pre-Dialysis 72 BPM Sitting H eart Rate Post-Dialysis 78 BPM Temperature Pre-Dialysis 97.8 degF Temperature Post -Dialysis 97.2 degF March 30, 2024 In-Center Hemodialysis Treatment 5612-72-42K99:59:50.000Z 9370-20-50H21:16:30.000Z BP Sitting (Pre-Dialysis) 154/79 mmHg BP Sitting (Post-Dialysis) 154/67 mmHg Concurrent Access: falseAV Graft Upper Arm (Left) Arterial Sitting Heart Rate Pre-Dialysis 79 BPM Sitting H eart Rate Post-Dialysis 74 BPM Temperature Pre-Dialysis 97.7 degF Temperature Post -Dialysis 97.6 degF March 28, 2024 In-Center Hemodialysis Treatment 0283-42-67J47:39:16.000Z 9287-06-20K31:55:31.000Z BP Sitting (Pre-Dialysis) 169/84 mmHg BP Sitting (Post-Dialysis) 145/52 mmHg Concurrent Access: falseAV Graft Upper Arm (Left) Arterial Sitting Heart Rate Pre-Dialysis 80 BPM Sitting H eart Rate Post-Dialysis 72 BPM Temperature Pre-Dialysis 97.6 degF Temperature Post -Dialysis 97.2 degF March 25, 2024 In-Center Hemodialysis Treatment 7878-29-39U31:15:08.000Z 3791-74-87B83:19:43.000Z BP Sitting (Pre-Dialysis) 163/71 mmHg BP Sitting (Post-Dialysis) 136/70 mmHg Concurrent Access: falseAV Graft Upper Arm (Left) Arterial Sitting Heart Rate Pre-Dialysis 79 BPM Sitting H eart Rate Post-Dialysis 75 BPM Temperature Pre-Dialysis 98.2 degF Temperature Post -Dialysis 97.2 degF March 23, 2024 In-Center Hemodialysis Treatment 1515-39-64L08:55:00.000Z 1506-06-74Z77:11:00.000Z BP Sitting (Pre-Dialysis) 196/100 mmHg BP Sitting (Post-Dialysis) 135/87 mmHg Concurrent Access: falseAV Graft Upper Arm (Left) Arterial Sitting Heart Rate Pre-Dialysis 66 BPM Sitting H eart Rate Post-Dialysis 78 BPM Temperature Pre-Dialysis 97.7 degF Temperature Post -Dialysis 98.2 degF March 21, 2024 In-Center Hemodialysis Treatment 1503-97-53A03:04:37.000Z 4464-61-91G85:20:02.000Z BP Sitting (Pre-Dialysis) 187/69 mmHg BP Sitting (Post-Dialysis) 147/59 mmHg Concurrent Access: falseAV Graft Upper Arm (Left) Arterial Sitting Heart Rate Pre-Dialysis 80 BPM Sitting H eart Rate Post-Dialysis 75 BPM Temperature Pre-Dialysis 97.2 degF Temperature Post -Dialysis 97 degF March 18, 2024 In-Center Hemodialysis Treatment 2160-66-40W46:54:43.000Z 0011-14-03Z50:11:23.000Z BP Sitting (Pre-Dialysis) 143/63 mmHg BP Sitting (Post-Dialysis) 157/45 mmHg Concurrent Access: falseAV Graft Upper Arm (Left) Arterial Sitting Heart Rate Pre-Dialysis 95 BPM Sitting H eart Rate Post-Dialysis 79 BPM Temperature Pre-Dialysis 98.4 degF Temperature Post -Dialysis 97.2 degF March 16, 2024 In-Center Hemodialysis Treatment 3137-84-36H90:58:00.000Z 2316-93-36X82:22:43.000Z BP Sitting (Pre-Dialysis) 152/73 mmHg BP Sitting (Post-Dialysis) 140/78 mmHg Concurrent Access: falseAV Graft Upper Arm (Left) Arterial Sitting Heart Rate Pre-Dialysis 76 BPM Sitting H eart Rate Post-Dialysis 60 BPM Temperature Pre-Dialysis 97.4 degF Temperature Post -Dialysis 97.6 degF March 14, 2024 In-Center Hemodialysis Treatment 7926-80-33Q80:59:00.000Z 6167-94-19V22:23:35.000Z BP Sitting (Pre-Dialysis) 169/80 mmHg BP Sitting (Post-Dialysis) 152/104 mmHg Concurrent Access: falseAV Graft Upper Arm (Left) Arterial Sitting Heart Rate Pre-Dialysis 83 BPM BP Standing (Post-Dialysis) 128/70 mmHg Temperature Pre-Dialysis 97.8 degF Sitting Heart Ra te Post-Dialysis 76 BPM Standing Heart Rate Post-Mayra lysis 90 BPM Temperature Post-Dialysis 97 .8 degF March 11, 2024 In-Center Hemodialysis Treatment 9420-43-92X45:48:02.000Z 0755-11-67O51:00:32.000Z BP Sitting (Pre-Dialysis) 206/109 mmHg BP Sitting (Post-Dialysis) 157/82 mmHg Concurrent Access: falseAV Graft Upper Arm (Left) Arterial Sitting Heart Rate Pre-Dialysis 83 BPM Sitting H eart Rate Post-Dialysis 66 BPM Temperature Pre-Dialysis 98.1 degF Temperature Post -Dialysis 97.6 degF March 09, 2024 In-Center Hemodialysis Treatment 5000-01-53Y99:55:32.000Z 2252-49-12R15:09:42.000Z BP Sitting (Pre-Dialysis) 185/87 mmHg BP Sitting (Post-Dialysis) 158/78 mmHg Concurrent Access: falseAV Graft Upper Arm (Left) Arterial Sitting Heart Rate Pre-Dialysis 80 BPM Sitting H eart Rate Post-Dialysis 83 BPM Temperature Pre-Dialysis 98.1 degF Temperature Post -Dialysis 97.4 degF March 07, 2024 In-Center Hemodialysis Treatment 3525-12-72Q54:51:01.000Z 8384-12-32Q35:47:41.000Z BP Sitting (Pre-Dialysis) 186/84 mmHg BP Sitting (Post-Dialysis) 157/84 mmHg Concurrent Access: falseAV Graft Upper Arm (Left) Arterial Sitting Heart Rate Pre-Dialysis 84 BPM Sitting H eart Rate Post-Dialysis 79 BPM Temperature Pre-Dialysis 98.2 degF Temperature Post -Dialysis 97.2 degF March 04, 2024 In-Center Hemodialysis Treatment 8248-71-67J08:50:04.000Z 3575-28-08R23:12:34.000Z BP Sitting (Pre-Dialysis) 223/105 mmHg BP Sitting (Post-Dialysis) 155/80 mmHg Concurrent Access: falseAV Graft Upper Arm (Left) Arterial Sitting Heart Rate Pre-Dialysis 81 BPM Sitting H eart Rate Post-Dialysis 77 BPM Temperature Pre-Dialysis 98.1 degF Temperature Post -Dialysis 97.6 degF March 02, 2024 In-Center Hemodialysis Treatment 8317-73-39Z27:39:56.000Z 7893-12-10G22:58:33.000Z BP Sitting (Pre-Dialysis) 180/100 mmHg BP Sitting (Post-Dialysis) 156/69 mmHg Concurrent Access: falseAV Graft Upper Arm (Left) Arterial Sitting Heart Rate Pre-Dialysis 81 BPM Sitting H eart Rate Post-Dialysis 70 BPM Temperature Pre-Dialysis 97.2 degF Temperature Post -Dialysis 97.2 degF February 29, 2024 In-Center Hemodialysis Treatment 0674-64-68M66:57:00.000Z 3766-47-64W77:13:59.000Z BP Sitting (Pre-Dialysis) 205/106 mmHg BP Sitting (Post-Dialysis) 179/82 mmHg Concurrent Access: falseAV Graft Upper Arm (Left) Arterial Sitting Heart Rate Pre-Dialysis 86 BPM Sitting H eart Rate Post-Dialysis 78 BPM Temperature Pre-Dialysis 97.7 degF Temperature Post -Dialysis 97.5 degF February 26, 2024 In-Center Hemodialysis Treatment 9926-30-22T97:38:05.000Z 5865-53-85D31:56:00.000Z BP Sitting (Pre-Dialysis) 182/89 mmHg BP Sitting (Post-Dialysis) 167/72 mmHg Concurrent Access: falseAV Graft Upper Arm (Left) Arterial Sitting Heart Rate Pre-Dialysis 80 BPM Sitting H eart Rate Post-Dialysis 77 BPM Temperature Pre-Dialysis 97.2 degF Temperature Post -Dialysis 97.4 degF February 24, 2024 In-Center Hemodialysis Treatment 1572-24-09H22:34:21.000Z 8440-91-11Y67:51:51.000Z BP Sitting (Pre-Dialysis) 200/100 mmHg BP Sitting (Post-Dialysis) 160/87 mmHg Concurrent Access: falseAV Graft Upper Arm (Left) Arterial Sitting Heart Rate Pre-Dialysis 86 BPM Sitting H eart Rate Post-Dialysis 80 BPM Temperature Pre-Dialysis 97.6 degF Temperature Post -Dialysis 97.6 degF February 22, 2024 In-Center Hemodialysis Treatment 2410-13-50W02:52:29.000Z 5062-48-71U97:07:54.000Z BP Sitting (Pre-Dialysis) 169/75 mmHg BP Sitting (Post-Dialysis) 188/70 mmHg Concurrent Access: falseAV Graft Upper Arm (Left) Arterial Sitting Heart Rate Pre-Dialysis 79 BPM Sitting H eart Rate Post-Dialysis 87 BPM Temperature Pre-Dialysis 97.6 degF Temperature Post -Dialysis 98.2 degF February 19, 2024 In-Center Hemodialysis Treatment 9405-29-60H48:41:04.000Z 4570-08-53O94:41:04.000Z BP Sitting (Pre-Dialysis) 190/90 mmHg BP Sitting (Post-Dialysis) 198/73 mmHg Concurrent Access: falseAV Graft Upper Arm (Left) Arterial Sitting Heart Rate Pre-Dialysis 56 BPM Sitting H eart Rate Post-Dialysis 81 BPM Temperature Pre-Dialysis 97.9 degF Temperature Post -Dialysis 97.2 degF February 17, 2024 In-Center Hemodialysis Treatment 8190-11-37Z16:12:19.000Z 2061-44-27K18:28:34.000Z BP Sitting (Pre-Dialysis) 178/80 mmHg BP Sitting (Post-Dialysis) 149/105 mmHg Concurrent Access: falseAV Graft Upper Arm (Left) Arterial Sitting Heart Rate Pre-Dialysis 80 BPM Sitting H eart Rate Post-Dialysis 117 BPM Temperature Pre-Dialysis 97.2 degF Temperature Post -Dialysis 97.6 degF February 15, 2024 In-Center Hemodialysis Treatment 6269-23-64H21:45:00.000Z 3474-87-52H74:03:59.000Z BP Sitting (Pre-Dialysis) 164/80 mmHg BP Sitting (Post-Dialysis) 138/76 mmHg Concurrent Access: falseAV Graft Upper Arm (Left) Arterial Sitting Heart Rate Pre-Dialysis 75 BPM Sitting H eart Rate Post-Dialysis 79 BPM Temperature Pre-Dialysis 97.6 degF Temperature Post -Dialysis 97.4 degF February 12, 2024 In-Center Hemodialysis Treatment 9300-06-15S58:41:14.000Z 2829-93-81P70:58:44.000Z BP Sitting (Pre-Dialysis) 209/87 mmHg BP Sitting (Post-Dialysis) 144/71 mmHg Concurrent Access: falseAV Graft Upper Arm (Left) Arterial Sitting Heart Rate Pre-Dialysis 74 BPM Sitting H eart Rate Post-Dialysis 66 BPM Temperature Pre-Dialysis 98.1 degF Temperature Post -Dialysis 97.2 degF February 10, 2024 In-Center Hemodialysis Treatment 5776-60-24P25:41:00.000Z 0464-61-39U55:06:06.000Z BP Sitting (Pre-Dialysis) 170/72 mmHg BP Sitting (Post-Dialysis) 151/78 mmHg Concurrent Access: falseAV Graft Upper Arm (Left) Arterial BP Standing (Pre-Dialysis) 148/73 mmHg Sitti ng Heart Rate Post-Dialysis 78 BPM Sitting Heart Rate Pre-Dialysis 60 BPM Temperatu re Post-Dialysis 97.3 degF Standing Heart Rate Pre-Dialysis 60 BPM Temperature Pre-Dialysis 97.7 degF February 08, 2024 In-Center Hemodialysis Treatment 8331-00-95Q74:47:05.000Z 8869-54-04W26:04:35.000Z BP Sitting (Pre-Dialysis) 155/88 mmHg BP Sitting (Post-Dialysis) 149/77 mmHg Concurrent Access: falseAV Graft Upper Arm (Left) Arterial Sitting Heart Rate Pre-Dialysis 84 BPM Sitting H eart Rate Post-Dialysis 74 BPM Temperature Pre-Dialysis 97.5 degF Temperature Post -Dialysis 98.2 degF February 05, 2024 In-Center Hemodialysis Treatment 0879-37-47G33:47:39.000Z 6961-29-51X34:01:24.000Z BP Sitting (Pre-Dialysis) 147/83 mmHg BP Sitting (Post-Dialysis) 146/54 mmHg Concurrent Access: falseAV Graft Upper Arm (Left) Arterial Sitting Heart Rate Pre-Dialysis 85 BPM Sitting H eart Rate Post-Dialysis 79 BPM Temperature Pre-Dialysis 98.2 degF Temperature Post -Dialysis 98 degF February 03, 2024 In-Center Hemodialysis Treatment 3600-63-48E50:27:44.000Z 5663-95-69T23:46:54.000Z BP Sitting (Pre-Dialysis) 167/82 mmHg BP Sitting (Post-Dialysis) 134/81 mmHg Concurrent Access: falseAV Graft Upper Arm (Left) Arterial Sitting Heart Rate Pre-Dialysis 67 BPM Sitting H eart Rate Post-Dialysis 78 BPM Temperature Pre-Dialysis 98.1 degF Temperature Post -Dialysis 97.9 degF February 01, 2024 In-Center Hemodialysis Treatment 5457-19-53C08:41:22.000Z 6020-56-77F00:56:47.000Z BP Sitting (Pre-Dialysis) 189/84 mmHg BP Sitting (Post-Dialysis) 168/90 mmHg Concurrent Access: falseAV Graft Upper Arm (Left) Arterial Sitting Heart Rate Pre-Dialysis 85 BPM Sitting H eart Rate Post-Dialysis 81 BPM Temperature Pre-Dialysis 98.1 degF Temperature Post -Dialysis 97.5 degF January 29, 2024 In-Center Hemodialysis Treatment 3544-46-06V19:25:00.000Z 4214-94-96C61:25:00.000Z BP Sitting (Pre-Dialysis) 183/103 mmHg BP Sitting (Post-Dialysis) 175/83 mmHg Concurrent Access: falseAV Graft Upper Arm (Left) Arterial Sitting Heart Rate Pre-Dialysis 83 BPM Sitting H eart Rate Post-Dialysis 80 BPM Temperature Pre-Dialysis 98.1 degF Temperature Post -Dialysis 98.4 degF January 27, 2024 In-Center Hemodialysis Treatment 7257-58-66N99:38:51.000Z 3226-64-39D02:01:21.000Z BP Sitting (Pre-Dialysis) 157/90 mmHg BP Sitting (Post-Dialysis) 169/65 mmHg Concurrent Access: falseAV Graft Upper Arm (Left) Arterial Sitting Heart Rate Pre-Dialysis 74 BPM Sitting H eart Rate Post-Dialysis 74 BPM Temperature Pre-Dialysis 97.7 degF Temperature Post -Dialysis 98.2 degF January 25, 2024 In-Center Hemodialysis Treatment 0289-27-98H77:48:40.000Z 3505-42-62H14:04:30.000Z BP Sitting (Pre-Dialysis) 157/86 mmHg BP Sitting (Post-Dialysis) 175/45 mmHg Concurrent Access: falseAV Graft Upper Arm (Left) Arterial Sitting Heart Rate Pre-Dialysis 87 BPM Sitting H eart Rate Post-Dialysis 71 BPM Temperature Pre-Dialysis 97.5 degF Temperature Post -Dialysis 97 degF January 22, 2024 In-Center Hemodialysis Treatment 0555-25-51V53:34:00.000Z 9666-51-95Z39:53:00.000Z BP Sitting (Pre-Dialysis) 158/72 mmHg BP Sitting (Post-Dialysis) 123/77 mmHg Concurrent Access: falseAV Graft Upper Arm (Left) Arterial Sitting Heart Rate Pre-Dialysis 86 BPM Sitting H eart Rate Post-Dialysis 85 BPM Temperature Pre-Dialysis 98.1 degF Temperature Post -Dialysis 97.8 degF January 20, 2024 In-Center Hemodialysis Treatment 9912-74-29R83:44:06.000Z 4176-98-87L11:00:21.000Z BP Sitting (Pre-Dialysis) 163/85 mmHg BP Sitting (Post-Dialysis) 150/57 mmHg Concurrent Access: falseAV Graft Upper Arm (Left) Arterial Sitting Heart Rate Pre-Dialysis 88 BPM Sitting H eart Rate Post-Dialysis 72 BPM Temperature Pre-Dialysis 97 degF Temperature Post -Dialysis 97.8 degF December 28, 2023 In-Center Hemodialysis Treatment 1050-60-95L06:43:00.000Z 0741-32-70Y07:03:25.000Z BP Sitting (Pre-Dialysis) 189/98 mmHg BP Sitting (Post-Dialysis) 149/75 mmHg Concurrent Access: falseAV Graft Upper Arm (Left) Arterial Sitting Heart Rate Pre-Dialysis 82 BPM Sitting H eart Rate Post-Dialysis 78 BPM Temperature Pre-Dialysis 97.4 degF Temperature Post -Dialysis 97.6 degF December 25, 2023 In-Center Hemodialysis Treatment 4665-45-43X44:25:00.000Z 8913-87-11O76:42:37.000Z BP Sitting (Pre-Dialysis) 152/66 mmHg BP Sitting (Post-Dialysis) 154/69 mmHg Concurrent Access: falseAV Graft Upper Arm (Left) Arterial Sitting Heart Rate Pre-Dialysis 75 BPM Sitting H eart Rate Post-Dialysis 78 BPM Temperature Pre-Dialysis 97.8 degF Temperature Post -Dialysis 98.1 degF December 23, 2023 In-Center Hemodialysis Treatment 7787-46-17B11:41:00.000Z 6622-94-84K54:01:52.000Z BP Sitting (Pre-Dialysis) 186/91 mmHg BP Sitting (Post-Dialysis) 142/50 mmHg Concurrent Access: falseAV Graft Upper Arm (Left) Arterial Sitting Heart Rate Pre-Dialysis 86 BPM Sitting H eart Rate Post-Dialysis 76 BPM Temperature Pre-Dialysis 97.9 degF Temperature Post -Dialysis 97.8 degF December 21, 2023 In-Center Hemodialysis Treatment 5564-42-76N22:38:00.000Z 2753-09-46H36:57:22.000Z BP Sitting (Pre-Dialysis) 186/82 mmHg BP Sitting (Post-Dialysis) 176/75 mmHg Concurrent Access: falseAV Graft Upper Arm (Left) Arterial Sitting Heart Rate Pre-Dialysis 70 BPM Sitting H eart Rate Post-Dialysis 74 BPM Temperature Pre-Dialysis 97.8 degF Temperature Post -Dialysis 97.4 degF December 18, 2023 In-Center Hemodialysis Treatment 5641-55-17W89:15:00.000Z 1038-93-16X30:32:07.000Z BP Sitting (Pre-Dialysis) 123/58 mmHg BP Sitting (Post-Dialysis) 150/90 mmHg Concurrent Access: falseAV Graft Upper Arm (Left) Arterial Sitting Heart Rate Pre-Dialysis 96 BPM Sitting H eart Rate Post-Dialysis 78 BPM Temperature Pre-Dialysis 98.4 degF Temperature Post -Dialysis 97.2 degF December 16, 2023 In-Center Hemodialysis Treatment 9255-28-88C13:23:00.000Z 7795-26-80E06:42:25.000Z BP Sitting (Pre-Dialysis) 135/92 mmHg BP Sitting (Post-Dialysis) 123/65 mmHg Concurrent Access: falseAV Graft Upper Arm (Left) Arterial Sitting Heart Rate Pre-Dialysis 82 BPM Sitting H eart Rate Post-Dialysis 78 BPM Temperature Pre-Dialysis 97.8 degF Temperature Post -Dialysis 97.7 degF December 14, 2023 In-Center Hemodialysis Treatment 1451-52-86X97:17:00.000Z 9929-91-82L92:37:25.000Z BP Sitting (Pre-Dialysis) 167/81 mmHg BP Sitting (Post-Dialysis) 150/90 mmHg Concurrent Access: falseAV Graft Upper Arm (Left) Arterial Sitting Heart Rate Pre-Dialysis 86 BPM Sitting H eart Rate Post-Dialysis 87 BPM Temperature Pre-Dialysis 97.8 degF Temperature Post -Dialysis 97.2 degF December 11, 2023 In-Center Hemodialysis Treatment 2261-71-91I70:19:13.000Z 9088-18-22I06:47:08.000Z BP Sitting (Pre-Dialysis) 183/91 mmHg BP Sitting (Post-Dialysis) 153/65 mmHg Concurrent Access: falseAV Graft Upper Arm (Left) Arterial Sitting Heart Rate Pre-Dialysis 79 BPM Sitting H eart Rate Post-Dialysis 71 BPM Temperature Pre-Dialysis 97.6 degF Temperature Post -Dialysis 97.6 degF December 09, 2023 In-Center Hemodialysis Treatment 1930-54-37F20:45:36.000Z 8580-39-05T54:01:51.000Z BP Sitting (Pre-Dialysis) 179/81 mmHg BP Sitting (Post-Dialysis) 174/77 mmHg Concurrent Access: falseAV Graft Upper Arm (Left) Arterial Sitting Heart Rate Pre-Dialysis 84 BPM Sitting H eart Rate Post-Dialysis 82 BPM Temperature Pre-Dialysis 97.2 degF Temperature Post -Dialysis 97.6 degF December 07, 2023 In-Center Hemodialysis Treatment 0839-65-88V34:38:00.000Z 4127-99-33V77:53:40.000Z BP Sitting (Pre-Dialysis) 177/101 mmHg BP Sitting (Post-Dialysis) 170/88 mmHg Concurrent Access: falseAV Graft Upper Arm (Left) Arterial Sitting Heart Rate Pre-Dialysis 87 BPM Sitting H eart Rate Post-Dialysis 81 BPM Temperature Pre-Dialysis 97.8 degF Temperature Post -Dialysis 97.7 degF December 04, 2023 In-Center Hemodialysis Treatment 9463-43-52N44:24:43.000Z 3841-61-30V76:40:08.000Z BP Sitting (Pre-Dialysis) 166/105 mmHg BP Sitting (Post-Dialysis) 145/85 mmHg Concurrent Access: falseAV Graft Upper Arm (Left) Arterial Sitting Heart Rate Pre-Dialysis 82 BPM Sitting H eart Rate Post-Dialysis 83 BPM Temperature Pre-Dialysis 98.1 degF Temperature Post -Dialysis 97.8 degF November 30, 2023 In-Center Hemodialysis Treatment 1331-19-11T40:26:00.000Z 3450-24-73E43:41:25.000Z BP Sitting (Pre-Dialysis) 190/84 mmHg BP Sitting (Post-Dialysis) 162/72 mmHg Concurrent Access: falseAV Graft Upper Arm (Left) Arterial Sitting Heart Rate Pre-Dialysis 76 BPM Sitting H eart Rate Post-Dialysis 100 BPM Temperature Pre-Dialysis 97.5 degF Temperature Post -Dialysis 97.2 degF November 27, 2023 In-Center Hemodialysis Treatment 5983-35-75Y52:26:00.000Z 4575-42-73X24:41:07.000Z BP Sitting (Pre-Dialysis) 183/90 mmHg BP Sitting (Post-Dialysis) 134/78 mmHg Concurrent Access: falseAV Graft Upper Arm (Left) Arterial Sitting Heart Rate Pre-Dialysis 84 BPM Sitting H eart Rate Post-Dialysis 80 BPM Temperature Pre-Dialysis 97.9 degF Temperature Post -Dialysis 97.2 degF November 25, 2023 In-Center Hemodialysis Treatment 5510-53-87E27:26:00.000Z 5454-59-06G11:42:08.000Z BP Sitting (Pre-Dialysis) 149/58 mmHg BP Sitting (Post-Dialysis) 160/86 mmHg Concurrent Access: falseAV Graft Upper Arm (Left) Arterial Sitting Heart Rate Pre-Dialysis 81 BPM Sitting H eart Rate Post-Dialysis 81 BPM Temperature Pre-Dialysis 97.8 degF Temperature Post -Dialysis 97.2 degF November 23, 2023 In-Center Hemodialysis Treatment 5058-64-41A87:39:30.000Z 6472-26-88R52:52:00.000Z BP Sitting (Pre-Dialysis) 154/99 mmHg BP Sitting (Post-Dialysis) 167/88 mmHg Concurrent Access: falseAV Graft Upper Arm (Left) Arterial Sitting Heart Rate Pre-Dialysis 83 BPM Sitting H eart Rate Post-Dialysis 87 BPM Temperature Pre-Dialysis 97.8 degF Temperature Post -Dialysis 97.2 degF November 20, 2023 In-Center Hemodialysis Treatment 4187-05-50I39:45:27.000Z 0877-16-03J22:04:12.000Z BP Sitting (Pre-Dialysis) 156/85 mmHg BP Sitting (Post-Dialysis) 120/63 mmHg Concurrent Access: falseAV Graft Upper Arm (Left) Arterial Sitting Heart Rate Pre-Dialysis 78 BPM Sitting H eart Rate Post-Dialysis 80 BPM Temperature Pre-Dialysis 97.4 degF Temperature Post -Dialysis 97.6 degF November 18, 2023 In-Center Hemodialysis Treatment 8423-33-04V22:50:00.000Z 9104-72-42T28:05:09.000Z BP Sitting (Pre-Dialysis) 161/68 mmHg BP Sitting (Post-Dialysis) 166/91 mmHg Concurrent Access: falseAV Graft Upper Arm (Left) Arterial Sitting Heart Rate Pre-Dialysis 81 BPM Sitting H eart Rate Post-Dialysis 77 BPM Temperature Pre-Dialysis 97.4 degF Temperature Post -Dialysis 97.8 degF November 16, 2023 In-Center Hemodialysis Treatment 4195-57-45V32:31:29.000Z 5753-73-22Q89:45:14.000Z BP Sitting (Pre-Dialysis) 178/85 mmHg BP Sitting (Post-Dialysis) 121/62 mmHg Concurrent Access: falseAV Graft Upper Arm (Left) Arterial Sitting Heart Rate Pre-Dialysis 80 BPM Sitting H eart Rate Post-Dialysis 81 BPM Temperature Pre-Dialysis 97 degF Temperature Post -Dialysis 97.2 degF November 13, 2023 In-Center Hemodialysis Treatment 9481-13-63H33:23:00.000Z 3135-26-80H58:39:21.000Z BP Sitting (Pre-Dialysis) 198/85 mmHg BP Sitting (Post-Dialysis) 140/63 mmHg Concurrent Access: falseAV Graft Upper Arm (Left) Arterial Sitting Heart Rate Pre-Dialysis 82 BPM Sitting H eart Rate Post-Dialysis 81 BPM Temperature Pre-Dialysis 98.1 degF Temperature Post -Dialysis 97.4 degF November 11, 2023 In-Center Hemodialysis Treatment 0587-14-12G94:39:00.000Z 5880-17-67J21:58:01.000Z BP Sitting (Pre-Dialysis) 161/72 mmHg BP Sitting (Post-Dialysis) 145/89 mmHg Concurrent Access: falseAV Graft Upper Arm (Left) Arterial Sitting Heart Rate Pre-Dialysis 85 BPM Sitting H eart Rate Post-Dialysis 80 BPM Temperature Pre-Dialysis 97.4 degF Temperature Post -Dialysis 97.2 degF November 09, 2023 In-Center Hemodialysis Treatment 0935-11-43Q40:20:00.000Z 4032-60-20D51:30:21.000Z BP Sitting (Pre-Dialysis) 189/80 mmHg BP Sitting (Post-Dialysis) 151/61 mmHg Concurrent Access: falseAV Graft Upper Arm (Left) Arterial Sitting Heart Rate Pre-Dialysis 84 BPM Sitting H eart Rate Post-Dialysis 82 BPM Temperature Pre-Dialysis 97.8 degF Temperature Post -Dialysis 97.2 degF November 06, 2023 In-Center Hemodialysis Treatment 3401-72-94W81:26:00.000Z 9786-42-79A42:42:50.000Z BP Sitting (Pre-Dialysis) 148/73 mmHg BP Sitting (Post-Dialysis) 152/67 mmHg Concurrent Access: falseAV Graft Upper Arm (Left) Arterial Sitting Heart Rate Pre-Dialysis 82 BPM Sitting H eart Rate Post-Dialysis 82 BPM Temperature Pre-Dialysis 98.1 degF Temperature Post -Dialysis 97.2 degF November 04, 2023 In-Center Hemodialysis Treatment 4255-72-14F21:26:00.000Z 7888-82-85X73:41:55.000Z BP Sitting (Pre-Dialysis) 139/73 mmHg BP Sitting (Post-Dialysis) 160/85 mmHg Concurrent Access: falseAV Graft Upper Arm (Left) Arterial Sitting Heart Rate Pre-Dialysis 83 BPM Sitting H eart Rate Post-Dialysis 81 BPM Temperature Pre-Dialysis 98.1 degF Temperature Post -Dialysis 97.7 degF November 02, 2023 In-Center Hemodialysis Treatment 1158-92-76Y24:13:00.000Z 3928-66-40M82:26:41.000Z BP Sitting (Pre-Dialysis) 186/86 mmHg BP Sitting (Post-Dialysis) 189/94 mmHg Concurrent Access: falseAV Graft Upper Arm (Left) Arterial Sitting Heart Rate Pre-Dialysis 90 BPM Sitting H eart Rate Post-Dialysis 77 BPM Temperature Pre-Dialysis 98.1 degF Temperature Post -Dialysis 98.2 degF October 30, 2023 In-Center Hemodialysis Treatment 1440-67-27S67:43:00.000Z 2219-20-81J72:59:59.000Z BP Sitting (Pre-Dialysis) 178/85 mmHg BP Sitting (Post-Dialysis) 191/88 mmHg Concurrent Access: falseAV Graft Upper Arm (Left) Arterial Sitting Heart Rate Pre-Dialysis 73 BPM Sitting H eart Rate Post-Dialysis 78 BPM Temperature Pre-Dialysis 98.2 degF Temperature Post -Dialysis 97.8 degF October 28, 2023 In-Center Hemodialysis Treatment 2523-65-23X79:22:44.000Z 1073-37-69W70:36:04.000Z BP Sitting (Pre-Dialysis) 123/58 mmHg BP Sitting (Post-Dialysis) 167/82 mmHg Concurrent Access: falseAV Graft Upper Arm (Left) Arterial Sitting Heart Rate Pre-Dialysis 83 BPM Sitting H eart Rate Post-Dialysis 78 BPM Temperature Pre-Dialysis 97.6 degF Temperature Post -Dialysis 97.2 degF October 26, 2023 In-Center Hemodialysis Treatment 8063-82-50V98:58:53.000Z 0825-84-84J34:10:33.000Z BP Sitting (Pre-Dialysis) 172/83 mmHg BP Sitting (Post-Dialysis) 135/59 mmHg Concurrent Access: falseAV Graft Upper Arm (Left) Arterial Sitting Heart Rate Pre-Dialysis 81 BPM Sitting H eart Rate Post-Dialysis 79 BPM Temperature Pre-Dialysis 97.5 degF Temperature Post -Dialysis 97.5 degF October 23, 2023 In-Center Hemodialysis Treatment 1422-33-03L60:24:26.000Z 3049-42-39B46:39:51.000Z BP Sitting (Pre-Dialysis) 116/71 mmHg BP Sitting (Post-Dialysis) 172/68 mmHg Concurrent Access: falseAV Graft Upper Arm (Left) Arterial Sitting Heart Rate Pre-Dialysis 76 BPM Sitting H eart Rate Post-Dialysis 76 BPM Temperature Pre-Dialysis 97.2 degF Temperature Post -Dialysis 97.8 degF October 21, 2023 In-Center Hemodialysis Treatment 3426-72-51A67:44:11.000Z 6837-17-94H82:14:36.000Z BP Sitting (Pre-Dialysis) 138/70 mmHg BP Sitting (Post-Dialysis) 169/69 mmHg Concurrent Access: falseAV Graft Upper Arm (Left) Arterial Sitting Heart Rate Pre-Dialysis 69 BPM Sitting H eart Rate Post-Dialysis 70 BPM Temperature Pre-Dialysis 97.2 degF Temperature Post -Dialysis 98.6 degF October 19, 2023 In-Center Hemodialysis Treatment 7990-72-58F46:30:00.000Z 2921-09-07T30:47:34.000Z BP Sitting (Pre-Dialysis) 171/108 mmHg BP Sitting (Post-Dialysis) 173/67 mmHg Concurrent Access: falseAV Graft Upper Arm (Left) Arterial Sitting Heart Rate Pre-Dialysis 90 BPM Sitting H eart Rate Post-Dialysis 76 BPM Temperature Pre-Dialysis 98.2 degF Temperature Post -Dialysis 98.2 degF October 16, 2023 In-Center Hemodialysis Treatment 8270-20-04D44:22:09.000Z 2504-63-75Q13:37:59.000Z BP Sitting (Pre-Dialysis) 128/55 mmHg BP Sitting (Post-Dialysis) 183/100 mmHg Concurrent Access: falseAV Graft Upper Arm (Left) Arterial Sitting Heart Rate Pre-Dialysis 76 BPM Sitting H eart Rate Post-Dialysis 76 BPM Temperature Pre-Dialysis 98.2 degF Temperature Post -Dialysis 97.8 degF October 14, 2023 In-Center Hemodialysis Treatment 4386-23-24B42:28:00.000Z 1422-19-27U33:44:18.000Z BP Sitting (Pre-Dialysis) 171/85 mmHg BP Sitting (Post-Dialysis) 145/76 mmHg Concurrent Access: falseAV Graft Upper Arm (Left) Arterial Sitting Heart Rate Pre-Dialysis 83 BPM Sitting H eart Rate Post-Dialysis 72 BPM Temperature Pre-Dialysis 97.8 degF Temperature Post -Dialysis 97.7 degF October 12, 2023 In-Center Hemodialysis Treatment 8888-98-69I94:28:00.000Z 0780-57-73Q83:45:46.000Z BP Sitting (Pre-Dialysis) 172/77 mmHg BP Sitting (Post-Dialysis) 167/85 mmHg Concurrent Access: falseAV Graft Upper Arm (Left) Arterial Sitting Heart Rate Pre-Dialysis 81 BPM Sitting H eart Rate Post-Dialysis 77 BPM Temperature Pre-Dialysis 97.8 degF Temperature Post -Dialysis 97.6 degF October 09, 2023 In-Center Hemodialysis Treatment 6732-54-68T96:27:00.000Z 1219-24-72F00:42:24.000Z BP Sitting (Pre-Dialysis) 166/78 mmHg BP Sitting (Post-Dialysis) 156/82 mmHg Concurrent Access: falseAV Graft Upper Arm (Left) Arterial Sitting Heart Rate Pre-Dialysis 83 BPM Sitting H eart Rate Post-Dialysis 77 BPM Temperature Pre-Dialysis 97.8 degF Temperature Post -Dialysis 97.8 degF October 07, 2023 In-Center Hemodialysis Treatment 2714-38-81Q25:15:00.000Z 6216-41-30O45:33:09.000Z BP Sitting (Pre-Dialysis) 138/58 mmHg BP Sitting (Post-Dialysis) 126/59 mmHg Concurrent Access: falseAV Graft Upper Arm (Left) Arterial Sitting Heart Rate Pre-Dialysis 80 BPM Sitting H eart Rate Post-Dialysis 80 BPM Temperature Pre-Dialysis 98.1 degF Temperature Post -Dialysis 98.2 degF October 05, 2023 In-Center Hemodialysis Treatment 7926-74-90S71:29:00.000Z 4891-39-79G39:46:33.000Z BP Sitting (Pre-Dialysis) 145/80 mmHg BP Sitting (Post-Dialysis) 139/59 mmHg Concurrent Access: falseAV Graft Upper Arm (Left) Arterial Sitting Heart Rate Pre-Dialysis 71 BPM Sitting H eart Rate Post-Dialysis 87 BPM Temperature Pre-Dialysis 98.1 degF Temperature Post -Dialysis 97.2 degF October 02, 2023 In-Center Hemodialysis Treatment 8230-35-21P11:08:00.000Z 7862-17-93N87:24:44.000Z BP Sitting (Pre-Dialysis) 194/71 mmHg BP Sitting (Post-Dialysis) 149/41 mmHg Concurrent Access: falseAV Graft Upper Arm (Left) Arterial Sitting Heart Rate Pre-Dialysis 79 BPM Sitting H eart Rate Post-Dialysis 81 BPM Temperature Pre-Dialysis 98.6 degF Temperature Post -Dialysis 98.3 degF September 30, 2023 In-Center Hemodialysis Treatment 5915-64-80H43:20:00.000Z 9759-44-58T69:34:29.000Z BP Sitting (Pre-Dialysis) 177/95 mmHg BP Sitting (Post-Dialysis) 163/83 mmHg Concurrent Access: falseAV Graft Upper Arm (Left) Arterial Sitting Heart Rate Pre-Dialysis 78 BPM Sitting H eart Rate Post-Dialysis 66 BPM Temperature Pre-Dialysis 97.9 degF Temperature Post -Dialysis 98.2 degF September 28, 2023 In-Center Hemodialysis Treatment 9268-31-38S56:27:00.000Z 7009-87-92T90:47:21.000Z BP Sitting (Pre-Dialysis) 142/76 mmHg BP Sitting (Post-Dialysis) 169/70 mmHg Concurrent Access: falseAV Graft Upper Arm (Left) Arterial Sitting Heart Rate Pre-Dialysis 83 BPM Sitting H eart Rate Post-Dialysis 78 BPM Temperature Pre-Dialysis 98.1 degF Temperature Post -Dialysis 97 degF September 25, 2023 In-Center Hemodialysis Treatment 7574-39-97M50:23:00.000Z 8526-24-44K27:40:37.000Z BP Sitting (Pre-Dialysis) 185/93 mmHg BP Sitting (Post-Dialysis) 174/76 mmHg Concurrent Access: falseAV Graft Upper Arm (Left) Arterial Sitting Heart Rate Pre-Dialysis 81 BPM Sitting H eart Rate Post-Dialysis 78 BPM Temperature Pre-Dialysis 97.7 degF Temperature Post -Dialysis 97.2 degF September 23, 2023 In-Center Hemodialysis Treatment 3624-85-29V30:29:18.000Z 9043-23-39T98:44:43.000Z BP Sitting (Pre-Dialysis) 185/83 mmHg BP Sitting (Post-Dialysis) 145/83 mmHg Concurrent Access: falseAV Graft Upper Arm (Left) Arterial Sitting Heart Rate Pre-Dialysis 72 BPM Sitting H eart Rate Post-Dialysis 81 BPM Temperature Pre-Dialysis 97.6 degF Temperature Post -Dialysis 97.2 degF September 21, 2023 In-Center Hemodialysis Treatment 3357-09-78P66:30:00.000Z 4594-90-39C57:49:08.000Z BP Sitting (Pre-Dialysis) 196/105 mmHg BP Sitting (Post-Dialysis) 172/93 mmHg Concurrent Access: falseAV Graft Upper Arm (Left) Arterial Sitting Heart Rate Pre-Dialysis 78 BPM Sitting H eart Rate Post-Dialysis 85 BPM Temperature Pre-Dialysis 98.1 degF Temperature Post -Dialysis 97.6 degF September 18, 2023 In-Center Hemodialysis Treatment 2709-82-26E55:31:00.000Z 9356-64-75E38:47:34.000Z BP Sitting (Pre-Dialysis) 200/128 mmHg BP Sitting (Post-Dialysis) 173/82 mmHg Concurrent Access: falseAV Graft Upper Arm (Left) Arterial Sitting Heart Rate Pre-Dialysis 72 BPM Sitting H eart Rate Post-Dialysis 79 BPM Temperature Pre-Dialysis 98.1 degF Temperature Post -Dialysis 97.7 degF September 16, 2023 In-Center Hemodialysis Treatment 2621-50-31A20:19:00.000Z 9772-94-91M27:35:41.000Z BP Sitting (Pre-Dialysis) 148/81 mmHg BP Sitting (Post-Dialysis) 140/59 mmHg Concurrent Access: falseAV Graft Upper Arm (Left) Arterial Sitting Heart Rate Pre-Dialysis 83 BPM Sitting H eart Rate Post-Dialysis 76 BPM Temperature Pre-Dialysis 97.8 degF Temperature Post -Dialysis 97.6 degF September 14, 2023 In-Center Hemodialysis Treatment 1955-41-59B30:37:42.000Z 4836-13-34I94:47:42.000Z BP Sitting (Pre-Dialysis) 181/73 mmHg BP Sitting (Post-Dialysis) 177/72 mmHg Concurrent Access: falseAV Graft Upper Arm (Left) Arterial Sitting Heart Rate Pre-Dialysis 81 BPM Sitting H eart Rate Post-Dialysis 80 BPM Temperature Pre-Dialysis 97.2 degF Temperature Post -Dialysis 97.8 degF September 11, 2023 In-Center Hemodialysis Treatment 0466-43-41W42:49:00.000Z 5204-55-37W84:08:14.000Z BP Sitting (Pre-Dialysis) 184/84 mmHg BP Sitting (Post-Dialysis) 123/46 mmHg Concurrent Access: falseAV Graft Upper Arm (Left) Arterial Sitting Heart Rate Pre-Dialysis 76 BPM Sitting H eart Rate Post-Dialysis 78 BPM Temperature Pre-Dialysis 98.2 degF Temperature Post -Dialysis 97.2 degF September 09, 2023 In-Center Hemodialysis Treatment 8878-19-07Y86:28:00.000Z 5081-24-81N90:49:36.000Z BP Sitting (Pre-Dialysis) 144/69 mmHg BP Sitting (Post-Dialysis) 190/75 mmHg Concurrent Access: falseAV Graft Upper Arm (Left) Arterial Sitting Heart Rate Pre-Dialysis 82 BPM Sitting H eart Rate Post-Dialysis 78 BPM Temperature Pre-Dialysis 97.8 degF Temperature Post -Dialysis 97.8 degF September 07, 2023 In-Center Hemodialysis Treatment 6042-37-49A61:39:18.000Z 1360-53-16D81:53:03.000Z BP Sitting (Pre-Dialysis) 141/99 mmHg BP Sitting (Post-Dialysis) 170/85 mmHg Concurrent Access: falseAV Graft Upper Arm (Left) Arterial Sitting Heart Rate Pre-Dialysis 92 BPM Sitting H eart Rate Post-Dialysis 78 BPM Temperature Pre-Dialysis 98.2 degF Temperature Post -Dialysis 97.2 degF September 04, 2023 In-Center Hemodialysis Treatment 0772-80-34H65:34:00.000Z 0884-21-03W42:43:58.000Z BP Sitting (Pre-Dialysis) 162/86 mmHg BP Sitting (Post-Dialysis) 156/93 mmHg Concurrent Access: falseAV Graft Upper Arm (Left) Arterial Sitting Heart Rate Pre-Dialysis 77 BPM Sitting H eart Rate Post-Dialysis 74 BPM Temperature Pre-Dialysis 97.8 degF Temperature Post -Dialysis 97.2 degF September 02, 2023 In-Center Hemodialysis Treatment 5445-38-25J81:29:37.000Z 2269-36-46S52:39:12.000Z BP Sitting (Pre-Dialysis) 127/65 mmHg BP Sitting (Post-Dialysis) 166/82 mmHg Concurrent Access: falseAV Graft Upper Arm (Left) Arterial Sitting Heart Rate Pre-Dialysis 85 BPM Sitting H eart Rate Post-Dialysis 85 BPM Temperature Pre-Dialysis 97.2 degF Temperature Post -Dialysis 97.2 degF August 31, 2023 In-Center Hemodialysis Treatment 0158-80-10F96:24:30.000Z 8201-59-08U42:40:20.000Z BP Sitting (Pre-Dialysis) 172/74 mmHg BP Sitting (Post-Dialysis) 187/69 mmHg Concurrent Access: falseAV Graft Upper Arm (Left) Arterial Sitting Heart Rate Pre-Dialysis 98 BPM Sitting H eart Rate Post-Dialysis 69 BPM Temperature Pre-Dialysis 97.2 degF Temperature Post -Dialysis 97.2 degF August 28, 2023 In-Center Hemodialysis Treatment 0648-69-18D78:29:00.000Z 0272-85-31V57:46:49.000Z BP Sitting (Pre-Dialysis) 213/79 mmHg BP Sitting (Post-Dialysis) 200/59 mmHg Concurrent Access: falseAV Graft Upper Arm (Left) Arterial Sitting Heart Rate Pre-Dialysis 59 BPM Sitting H eart Rate Post-Dialysis 68 BPM Temperature Pre-Dialysis 97.2 degF Temperature Post -Dialysis 97.5 degF August 26, 2023 In-Center Hemodialysis Treatment 9238-64-46A22:34:00.000Z 3560-39-63D20:45:00.000Z BP Sitting (Pre-Dialysis) 189/81 mmHg BP Sitting (Post-Dialysis) 196/64 mmHg Concurrent Access: falseAV Graft Upper Arm (Left) Arterial Sitting Heart Rate Pre-Dialysis 58 BPM Sitting H eart Rate Post-Dialysis 56 BPM Temperature Pre-Dialysis 98.1 degF Temperature Post -Dialysis 97.7 degF August 24, 2023 In-Center Hemodialysis Treatment 9784-28-44Q27:02:58.000Z 0137-21-36A93:18:48.000Z BP Sitting (Pre-Dialysis) 154/74 mmHg BP Sitting (Post-Dialysis) 176/75 mmHg Concurrent Access: falseAV Graft Upper Arm (Left) Arterial Sitting Heart Rate Pre-Dialysis 65 BPM Sitting H eart Rate Post-Dialysis 67 BPM Temperature Pre-Dialysis 97.6 degF Temperature Post -Dialysis 97.4 degF August 21, 2023 In-Center Hemodialysis Treatment 4567-84-89U03:22:00.000Z 8913-98-38E03:40:19.000Z BP Sitting (Pre-Dialysis) 169/55 mmHg BP Sitting (Post-Dialysis) 175/69 mmHg Concurrent Access: falseAV Graft Upper Arm (Left) Arterial Sitting Heart Rate Pre-Dialysis 58 BPM Sitting H eart Rate Post-Dialysis 69 BPM Temperature Pre-Dialysis 97.7 degF Temperature Post -Dialysis 98.2 degF August 19, 2023 In-Center Hemodialysis Treatment 5514-15-96P71:28:34.000Z 0034-27-64Y97:47:19.000Z BP Sitting (Pre-Dialysis) 205/74 mmHg BP Sitting (Post-Dialysis) 185/71 mmHg Concurrent Access: falseAV Graft Upper Arm (Left) Arterial Sitting Heart Rate Pre-Dialysis 58 BPM Sitting H eart Rate Post-Dialysis 65 BPM Temperature Pre-Dialysis 98.2 degF Temperature Post -Dialysis 97.7 degF August 17, 2023 In-Center Hemodialysis Treatment 2347-02-06Z65:12:00.000Z 7180-06-47M81:30:53.000Z BP Sitting (Pre-Dialysis) 202/83 mmHg BP Sitting (Post-Dialysis) 161/61 mmHg Concurrent Access: falseAV Graft Upper Arm (Left) Arterial Sitting Heart Rate Pre-Dialysis 64 BPM Sitting H eart Rate Post-Dialysis 59 BPM Temperature Pre-Dialysis 98.1 degF Temperature Post -Dialysis 97.6 degF August 14, 2023 In-Center Hemodialysis Treatment 5309-95-95F79:22:22.000Z 0139-26-69X96:41:07.000Z BP Sitting (Pre-Dialysis) 191/81 mmHg BP Sitting (Post-Dialysis) 169/57 mmHg Concurrent Access: falseAV Graft Upper Arm (Left) Arterial Sitting Heart Rate Pre-Dialysis 63 BPM Sitting H eart Rate Post-Dialysis 55 BPM Temperature Pre-Dialysis 97.8 degF Temperature Post -Dialysis 97.6 degF August 12, 2023 In-Center Hemodialysis Treatment 1507-09-60Z66:59:00.000Z 1511-21-68S31:13:11.000Z BP Sitting (Pre-Dialysis) 159/65 mmHg BP Sitting (Post-Dialysis) 171/69 mmHg Concurrent Access: falseAV Graft Upper Arm (Left) Arterial Sitting Heart Rate Pre-Dialysis 62 BPM Sitting H eart Rate Post-Dialysis 59 BPM Temperature Pre-Dialysis 97.7 degF Temperature Post -Dialysis 97.8 degF August 10, 2023 In-Center Hemodialysis Treatment 1562-92-92C72:41:32.000Z 1732-07-55B61:57:47.000Z BP Sitting (Pre-Dialysis) 242/93 mmHg BP Sitting (Post-Dialysis) 166/66 mmHg Concurrent Access: falseAV Graft Upper Arm (Left) Arterial Sitting Heart Rate Pre-Dialysis 58 BPM Sitting H eart Rate Post-Dialysis 54 BPM Temperature Pre-Dialysis 97.2 degF Temperature Post -Dialysis 97.2 degF August 07, 2023 In-Center Hemodialysis Treatment 8393-30-22N66:01:00.000Z 0827-38-19I79:03:05.000Z BP Sitting (Pre-Dialysis) 199/75 mmHg BP Sitting (Post-Dialysis) 200/99 mmHg Concurrent Access: falseAV Graft Upper Arm (Left) Arterial Sitting Heart Rate Pre-Dialysis 59 BPM Sitting H eart Rate Post-Dialysis 46 BPM Temperature Pre-Dialysis 97.8 degF Temperature Post -Dialysis 97.2 degF August 05, 2023 In-Center Hemodialysis Treatment 3509-69-30P00:39:00.000Z 9815-38-33G62:54:59.000Z BP Sitting (Pre-Dialysis) 208/84 mmHg BP Sitting (Post-Dialysis) 160/71 mmHg Concurrent Access: falseAV Graft Upper Arm (Left) Arterial Sitting Heart Rate Pre-Dialysis 61 BPM Sitting H eart Rate Post-Dialysis 56 BPM Temperature Pre-Dialysis 97.7 degF Temperature Post -Dialysis 98.2 degF August 03, 2023 In-Center Hemodialysis Treatment 8705-58-19T11:45:00.000Z 6037-83-42J88:07:40.000Z BP Sitting (Pre-Dialysis) 172/76 mmHg BP Sitting (Post-Dialysis) 169/75 mmHg Concurrent Access: falseAV Graft Upper Arm (Left) Arterial Sitting Heart Rate Pre-Dialysis 63 BPM Sitting H eart Rate Post-Dialysis 56 BPM Temperature Pre-Dialysis 97.8 degF Temperature Post -Dialysis 98.2 degF July 31, 2023 In-Center Hemodialysis Treatment 4023-75-47U19:19:00.000Z 3655-06-84F20:37:34.000Z BP Sitting (Pre-Dialysis) 223/78 mmHg BP Sitting (Post-Dialysis) 222/60 mmHg Concurrent Access: falseAV Graft Upper Arm (Left) Arterial Sitting Heart Rate Pre-Dialysis 61 BPM Sitting H eart Rate Post-Dialysis 57 BPM Temperature Pre-Dialysis 97.8 degF Temperature Post -Dialysis 97.2 degF July 29, 2023 In-Center Hemodialysis Treatment 6199-34-21K53:59:35.000Z 5658-79-43R17:17:05.000Z BP Sitting (Pre-Dialysis) 166/68 mmHg BP Sitting (Post-Dialysis) 136/69 mmHg Concurrent Access: falseAV Graft Upper Arm (Left) Arterial Sitting Heart Rate Pre-Dialysis 63 BPM Sitting H eart Rate Post-Dialysis 58 BPM Temperature Pre-Dialysis 98.1 degF Temperature Post -Dialysis 98.2 degF July 27, 2023 In-Center Hemodialysis Treatment 9127-64-82O60:41:00.000Z 2177-15-07D74:53:29.000Z BP Sitting (Pre-Dialysis) 210/80 mmHg BP Sitting (Post-Dialysis) 136/62 mmHg Concurrent Access: falseAV Graft Upper Arm (Left) Arterial Sitting Heart Rate Pre-Dialysis 60 BPM Sitting H eart Rate Post-Dialysis 58 BPM Temperature Pre-Dialysis 97.9 degF Temperature Post -Dialysis 97.2 degF July 24, 2023 In-Center Hemodialysis Treatment 4512-85-90Y28:11:00.000Z 5127-07-44Y90:27:08.000Z BP Sitting (Pre-Dialysis) 182/75 mmHg BP Sitting (Post-Dialysis) 172/65 mmHg Concurrent Access: falseAV Graft Upper Arm (Left) Arterial Sitting Heart Rate Pre-Dialysis 59 BPM Sitting H eart Rate Post-Dialysis 54 BPM Temperature Pre-Dialysis 97.8 degF Temperature Post -Dialysis 97 degF July 22, 2023 In-Center Hemodialysis Treatment 6863-47-36V94:27:00.000Z 0868-70-34D42:42:38.000Z BP Sitting (Pre-Dialysis) 163/69 mmHg BP Sitting (Post-Dialysis) 154/63 mmHg Concurrent Access: falseAV Graft Upper Arm (Left) Arterial Sitting Heart Rate Pre-Dialysis 60 BPM Sitting H eart Rate Post-Dialysis 63 BPM Temperature Pre-Dialysis 98.1 degF Temperature Post -Dialysis 98.2 degF July 20, 2023 In-Center Hemodialysis Treatment 5421-80-09T09:04:04.000Z 2427-22-88G27:26:59.000Z BP Sitting (Pre-Dialysis) 209/82 mmHg BP Sitting (Post-Dialysis) 168/69 mmHg Concurrent Access: falseAV Graft Upper Arm (Left) Arterial Sitting Heart Rate Pre-Dialysis 59 BPM Sitting H eart Rate Post-Dialysis 63 BPM Temperature Pre-Dialysis 97.9 degF Temperature Post -Dialysis 97.7 degF July 17, 2023 In-Center Hemodialysis Treatment 9819-10-99N51:17:00.000Z 5560-77-21F03:33:33.000Z BP Sitting (Pre-Dialysis) 188/73 mmHg BP Sitting (Post-Dialysis) 165/70 mmHg Concurrent Access: falseAV Graft Upper Arm (Left) Arterial Sitting Heart Rate Pre-Dialysis 62 BPM Sitting H eart Rate Post-Dialysis 58 BPM Temperature Pre-Dialysis 97.2 degF July 15, 2023 In-Center Hemodialysis Treatment 8902-91-90E57:03:00.000Z 3960-87-81L70:24:27.000Z BP Sitting (Pre-Dialysis) 213/80 mmHg BP Sitting (Post-Dialysis) 162/98 mmHg Concurrent Access: falseAV Graft Upper Arm (Left) Arterial Sitting Heart Rate Pre-Dialysis 57 BPM Sitting H eart Rate Post-Dialysis 58 BPM Temperature Pre-Dialysis 97.7 degF July 13, 2023 In-Center Hemodialysis Treatment 3406-85-55X88:37:09.000Z 9853-07-35B74:55:00.000Z BP Sitting (Pre-Dialysis) 152/57 mmHg BP Sitting (Post-Dialysis) 148/69 mmHg Concurrent Access: falseAV Graft Upper Arm (Left) Arterial Sitting Heart Rate Pre-Dialysis 60 BPM Sitting H eart Rate Post-Dialysis 61 BPM Temperature Pre-Dialysis 98 degF Temperature Post -Dialysis 98.2 degF July 10, 2023 In-Center Hemodialysis Treatment 8063-63-07Z30:14:37.000Z 0584-40-18C81:32:57.000Z BP Sitting (Pre-Dialysis) 195/81 mmHg BP Sitting (Post-Dialysis) 189/78 mmHg Concurrent Access: falseAV Graft Upper Arm (Left) Arterial Sitting Heart Rate Pre-Dialysis 60 BPM Sitting H eart Rate Post-Dialysis 55 BPM Temperature Pre-Dialysis 97.2 degF Temperature Post -Dialysis 98.2 degF July 06, 2023 In-Center Hemodialysis Treatment 3015-38-10S29:04:00.000Z 4839-32-48H49:05:16.000Z BP Sitting (Pre-Dialysis) 167/59 mmHg BP Sitting (Post-Dialysis) 186/78 mmHg Concurrent Access: falseAV Graft Upper Arm (Left) Arterial Sitting Heart Rate Pre-Dialysis 59 BPM Sitting H eart Rate Post-Dialysis 52 BPM Temperature Pre-Dialysis 98.1 degF Temperature Post -Dialysis 97.2 degF July 03, 2023 In-Center Hemodialysis Treatment 1345-57-89T66:16:54.000Z 5243-20-08R60:27:19.000Z BP Sitting (Pre-Dialysis) 140/51 mmHg BP Sitting (Post-Dialysis) 139/56 mmHg Concurrent Access: falseAV Graft Upper Arm (Left) Arterial Sitting Heart Rate Pre-Dialysis 31 BPM Sitting H eart Rate Post-Dialysis 50 BPM Temperature Pre-Dialysis 97.2 degF Temperature Post -Dialysis 97.2 degF July 01, 2023 In-Center Hemodialysis Treatment 3262-03-45F21:02:14.000Z 4604-02-19Q85:20:34.000Z BP Sitting (Pre-Dialysis) 172/80 mmHg BP Sitting (Post-Dialysis) 141/55 mmHg Concurrent Access: falseAV Graft Upper Arm (Left) Arterial Sitting Heart Rate Pre-Dialysis 62 BPM Sitting H eart Rate Post-Dialysis 49 BPM Temperature Pre-Dialysis 97.2 degF Temperature Post -Dialysis 97.4 degF June 29, 2023 In-Center Hemodialysis Treatment 4803-91-71I51:08:00.000Z 1483-32-91J03:20:22.000Z BP Sitting (Pre-Dialysis) 165/74 mmHg BP Sitting (Post-Dialysis) 187/82 mmHg Concurrent Access: falseAV Graft Upper Arm (Left) Arterial Sitting Heart Rate Pre-Dialysis 57 BPM Sitting H eart Rate Post-Dialysis 59 BPM Temperature Pre-Dialysis 98.1 degF Temperature Post -Dialysis 97.5 degF June 26, 2023 In-Center Hemodialysis Treatment 7454-93-24L29:00:00.000Z 0257-24-22Z42:21:37.000Z BP Sitting (Pre-Dialysis) 203/59 mmHg BP Sitting (Post-Dialysis) 167/87 mmHg Concurrent Access: falseAV Graft Upper Arm (Left) Arterial Sitting Heart Rate Pre-Dialysis 59 BPM Sitting H eart Rate Post-Dialysis 40 BPM Temperature Pre-Dialysis 98.2 degF Temperature Post -Dialysis 97.3 degF June 24, 2023 In-Center Hemodialysis Treatment 3287-78-77X21:54:48.000Z 9810-71-45L30:54:48.000Z BP Sitting (Pre-Dialysis) 205/91 mmHg BP Sitting (Post-Dialysis) 165/65 mmHg Concurrent Access: falseAV Graft Upper Arm (Left) Arterial Sitting Heart Rate Pre-Dialysis 58 BPM Sitting H eart Rate Post-Dialysis 55 BPM Temperature Pre-Dialysis 97.2 degF Temperature Post -Dialysis 97.2 degF June 22, 2023 In-Center Hemodialysis Treatment 2239-69-32E16:01:00.000Z 5266-57-39X92:24:50.000Z BP Sitting (Pre-Dialysis) 196/81 mmHg BP Sitting (Post-Dialysis) 178/87 mmHg Concurrent Access: falseAV Graft Upper Arm (Left) Arterial Sitting Heart Rate Pre-Dialysis 58 BPM Sitting H eart Rate Post-Dialysis 60 BPM Temperature Pre-Dialysis 97.2 degF Temperature Post -Dialysis 97.2 degF June 19, 2023 In-Center Hemodialysis Treatment 7857-89-35O17:50:00.000Z 2959-82-58J14:08:20.000Z BP Sitting (Pre-Dialysis) 211/76 mmHg BP Sitting (Post-Dialysis) 181/77 mmHg Concurrent Access: falseAV Graft Upper Arm (Left) Arterial Sitting Heart Rate Pre-Dialysis 58 BPM Sitting H eart Rate Post-Dialysis 60 BPM Temperature Pre-Dialysis 98.2 degF Temperature Post -Dialysis 97.7 degF June 17, 2023 In-Center Hemodialysis Treatment 9152-55-09G85:03:00.000Z 9873-42-16Z70:20:45.000Z BP Sitting (Pre-Dialysis) 196/82 mmHg BP Sitting (Post-Dialysis) 100/64 mmHg Concurrent Access: falseAV Graft Upper Arm (Left) Arterial Sitting Heart Rate Pre-Dialysis 57 BPM Sitting H eart Rate Post-Dialysis 50 BPM Temperature Pre-Dialysis 97.5 degF Temperature Post -Dialysis 97.1 degF June 15, 2023 In-Center Hemodialysis Treatment 5734-83-61G62:35:06.000Z 2881-62-60T53:50:31.000Z BP Sitting (Pre-Dialysis) 167/111 mmHg BP Sitting (Post-Dialysis) 198/83 mmHg Concurrent Access: falseAV Graft Upper Arm (Left) Arterial Sitting Heart Rate Pre-Dialysis 59 BPM Sitting H eart Rate Post-Dialysis 55 BPM Temperature Pre-Dialysis 97.3 degF Temperature Post -Dialysis 97.2 degF June 12, 2023 In-Center Hemodialysis Treatment 6980-34-49E54:55:25.000Z 1846-05-49M89:11:15.000Z BP Sitting (Pre-Dialysis) 198/84 mmHg BP Sitting (Post-Dialysis) 178/69 mmHg Concurrent Access: falseAV Graft Upper Arm (Left) Arterial Sitting Heart Rate Pre-Dialysis 58 BPM Sitting H eart Rate Post-Dialysis 58 BPM Temperature Pre-Dialysis 97.2 degF Temperature Post -Dialysis 97 degF June 10, 2023 In-Center Hemodialysis Treatment 7330-45-21H46:41:00.000Z 6176-45-16P13:57:01.000Z BP Sitting (Pre-Dialysis) 164/71 mmHg BP Sitting (Post-Dialysis) 149/42 mmHg Concurrent Access: falseAV Graft Upper Arm (Left) Arterial Sitting Heart Rate Pre-Dialysis 58 BPM Sitting H eart Rate Post-Dialysis 54 BPM Temperature Pre-Dialysis 97.8 degF Temperature Post -Dialysis 97.4 degF June 08, 2023 In-Center Hemodialysis Treatment 6091-85-73M79:31:00.000Z 2592-95-65A23:27:17.000Z BP Sitting (Pre-Dialysis) 207/107 mmHg BP Sitting (Post-Dialysis) 208/88 mmHg Concurrent Access: falseAV Graft Upper Arm (Left) Arterial Sitting Heart Rate Pre-Dialysis 64 BPM Sitting H eart Rate Post-Dialysis 48 BPM Temperature Pre-Dialysis 97.8 degF Temperature Post -Dialysis 97.6 degF June 05, 2023 In-Center Hemodialysis Treatment 2577-43-47H44:48:02.000Z 2349-06-57L16:07:12.000Z BP Sitting (Pre-Dialysis) 196/81 mmHg BP Sitting (Post-Dialysis) 180/80 mmHg Concurrent Access: falseAV Graft Upper Arm (Left) Arterial Sitting Heart Rate Pre-Dialysis 63 BPM Sitting H eart Rate Post-Dialysis 58 BPM Temperature Pre-Dialysis 97.7 degF Temperature Post -Dialysis 97.6 degF June 03, 2023 In-Center Hemodialysis Treatment 0671-34-57N25:51:00.000Z 1350-92-66O18:07:40.000Z BP Sitting (Pre-Dialysis) 149/70 mmHg BP Sitting (Post-Dialysis) 134/55 mmHg Concurrent Access: falseAV Graft Upper Arm (Left) Arterial Sitting Heart Rate Pre-Dialysis 58 BPM Sitting H eart Rate Post-Dialysis 51 BPM Temperature Pre-Dialysis 97.9 degF Temperature Post -Dialysis 97.5 degF June 01, 2023 In-Center Hemodialysis Treatment 8254-48-86K05:01:05.000Z 3458-23-01H09:17:45.000Z BP Sitting (Pre-Dialysis) 210/80 mmHg BP Sitting (Post-Dialysis) 158/56 mmHg Concurrent Access: falseAV Graft Upper Arm (Left) Arterial Sitting Heart Rate Pre-Dialysis 59 BPM Sitting H eart Rate Post-Dialysis 64 BPM Temperature Pre-Dialysis 97.5 degF Temperature Post -Dialysis 97.7 degF May 29, 2023 In-Center Hemodialysis Treatment 0596-76-70D63:54:00.000Z 6696-63-05L70:09:33.000Z BP Sitting (Pre-Dialysis) 145/51 mmHg BP Sitting (Post-Dialysis) 207/77 mmHg Concurrent Access: falseAV Graft Upper Arm (Left) Arterial Sitting Heart Rate Pre-Dialysis 55 BPM Sitting H eart Rate Post-Dialysis 56 BPM Temperature Pre-Dialysis 97.6 degF Temperature Post -Dialysis 97.2 degF May 27, 2023 In-Center Hemodialysis Treatment 4875-46-54H55:38:53.000Z 1488-05-40M17:54:43.000Z BP Sitting (Pre-Dialysis) 172/75 mmHg BP Sitting (Post-Dialysis) 171/75 mmHg Concurrent Access: falseAV Graft Upper Arm (Left) Arterial BP Standing (Pre-Dialysis) 174/52 mmHg Sitti ng Heart Rate Post-Dialysis 57 BPM Sitting Heart Rate Pre-Dialysis 55 BPM Temperatu re Post-Dialysis 97.8 degF Standing Heart Rate Pre-Dialysis 57 BPM Temperature Pre-Dialysis 97.2 degF May 25, 2023 In-Center Hemodialysis Treatment 3947-53-02Y66:01:35.000Z 8943-45-82J35:02:50.000Z BP Sitting (Pre-Dialysis) 232/90 mmHg BP Sitting (Post-Dialysis) 196/79 mmHg Concurrent Access: falseAV Graft Upper Arm (Left) Arterial Sitting Heart Rate Pre-Dialysis 56 BPM Sitting H eart Rate Post-Dialysis 55 BPM Temperature Pre-Dialysis 97.2 degF Temperature Post -Dialysis 98.1 degF May 22, 2023 In-Center Hemodialysis Treatment 4478-61-10W36:13:00.000Z 6431-98-65C97:38:06.000Z BP Sitting (Pre-Dialysis) 156/76 mmHg BP Sitting (Post-Dialysis) 148/55 mmHg Concurrent Access: falseAV Graft Upper Arm (Left) Arterial Sitting Heart Rate Pre-Dialysis 57 BPM Sitting H eart Rate Post-Dialysis 54 BPM Temperature Pre-Dialysis 97.8 degF Temperature Post -Dialysis 98.2 degF May 20, 2023 In-Center Hemodialysis Treatment 7129-11-22P24:53:47.000Z 5460-90-51I41:11:17.000Z BP Sitting (Pre-Dialysis) 208/89 mmHg BP Sitting (Post-Dialysis) 180/54 mmHg Concurrent Access: falseAV Graft Upper Arm (Left) Arterial Sitting Heart Rate Pre-Dialysis 59 BPM Sitting H eart Rate Post-Dialysis 60 BPM Temperature Pre-Dialysis 97.2 degF Temperature Post -Dialysis 97.3 degF May 15, 2023 In-Center Hemodialysis Treatment 6332-08-78T75:46:00.000Z 1226-41-31K10:07:39.000Z BP Sitting (Pre-Dialysis) 196/70 mmHg BP Sitting (Post-Dialysis) 186/52 mmHg Concurrent Access: falseAV Graft Upper Arm (Left) Arterial Sitting Heart Rate Pre-Dialysis 58 BPM Sitting H eart Rate Post-Dialysis 51 BPM Temperature Pre-Dialysis 97.2 degF Temperature Post -Dialysis 97.2 degF May 13, 2023 In-Center Hemodialysis Treatment 4613-54-58Z91:54:00.000Z 7586-95-64Y76:10:37.000Z BP Sitting (Pre-Dialysis) 202/82 mmHg BP Sitting (Post-Dialysis) 183/71 mmHg Concurrent Access: falseAV Graft Upper Arm (Left) Arterial Sitting Heart Rate Pre-Dialysis 54 BPM Sitting H eart Rate Post-Dialysis 54 BPM Temperature Pre-Dialysis 97.3 degF Temperature Post -Dialysis 97.2 degF May 08, 2023 In-Center Hemodialysis Treatment 6091-06-23X27:01:00.000Z 6636-89-43O57:20:20.000Z BP Sitting (Pre-Dialysis) 223/111 mmHg BP Sitting (Post-Dialysis) 208/66 mmHg Concurrent Access: falseAV Graft Upper Arm (Left) Arterial Sitting Heart Rate Pre-Dialysis 57 BPM Sitting H eart Rate Post-Dialysis 55 BPM Temperature Pre-Dialysis 97.3 degF Temperature Post -Dialysis 98.2 degF May 06, 2023 In-Center Hemodialysis Treatment 2314-04-52E90:06:00.000Z 4147-79-66C15:23:49.000Z BP Sitting (Pre-Dialysis) 187/79 mmHg BP Sitting (Post-Dialysis) 154/36 mmHg Concurrent Access: falseAV Graft Upper Arm (Left) Arterial Sitting Heart Rate Pre-Dialysis 58 BPM Sitting H eart Rate Post-Dialysis 48 BPM Temperature Pre-Dialysis 97.1 degF Temperature Post -Dialysis 97 degF May 04, 2023 In-Center Hemodialysis Treatment 0693-22-98J31:02:00.000Z 0042-68-16W72:19:13.000Z BP Sitting (Pre-Dialysis) 218/77 mmHg BP Sitting (Post-Dialysis) 183/75 mmHg Concurrent Access: falseAV Graft Upper Arm (Left) Arterial Sitting Heart Rate Pre-Dialysis 54 BPM Sitting H eart Rate Post-Dialysis 60 BPM Temperature Pre-Dialysis 98.2 degF Temperature Post -Dialysis 97.2 degF May 01, 2023 In-Center Hemodialysis Treatment 9131-34-27C36:00:00.000Z 3569-99-86E71:17:53.000Z BP Sitting (Pre-Dialysis) 240/99 mmHg BP Sitting (Post-Dialysis) 177/71 mmHg Concurrent Access: falseAV Graft Upper Arm (Left) Arterial Sitting Heart Rate Pre-Dialysis 61 BPM Sitting H eart Rate Post-Dialysis 46 BPM Temperature Pre-Dialysis 97.7 degF April 29, 2023 In-Center Hemodialysis Treatment 8817-13-14L13:01:00.000Z 7989-28-94H86:23:42.000Z BP Sitting (Pre-Dialysis) 202/72 mmHg BP Sitting (Post-Dialysis) 200/64 mmHg Concurrent Access: falseAV Graft Upper Arm (Left) Arterial Sitting Heart Rate Pre-Dialysis 63 BPM Sitting H eart Rate Post-Dialysis 55 BPM Temperature Pre-Dialysis 97.6 degF Temperature Post -Dialysis 97.4 degF April 27, 2023 In-Center Hemodialysis Treatment 2028-08-81Z10:00:00.000Z 6438-17-32J68:24:00.000Z BP Sitting (Pre-Dialysis) 193/74 mmHg BP Sitting (Post-Dialysis) 191/76 mmHg Concurrent Access: falseAV Graft Upper Arm (Left) Arterial Sitting Heart Rate Pre-Dialysis 61 BPM Sitting H eart Rate Post-Dialysis 63 BPM Temperature Pre-Dialysis 97.4 degF Temperature Post -Dialysis 97.4 degF April 24, 2023 In-Center Hemodialysis Treatment 9574-93-01G46:44:00.000Z 7069-54-70M32:04:56.000Z BP Sitting (Pre-Dialysis) 211/87 mmHg BP Sitting (Post-Dialysis) 169/68 mmHg Concurrent Access: falseAV Graft Upper Arm (Left) Arterial Sitting Heart Rate Pre-Dialysis 61 BPM Sitting H eart Rate Post-Dialysis 58 BPM Temperature Pre-Dialysis 97.7 degF Temperature Post -Dialysis 97.4 degF April 22, 2023 In-Center Hemodialysis Treatment 6183-24-03K13:02:00.000Z 3989-67-76S11:20:27.000Z BP Sitting (Pre-Dialysis) 200/81 mmHg BP Sitting (Post-Dialysis) 145/96 mmHg Concurrent Access: falseAV Graft Upper Arm (Left) Arterial Sitting Heart Rate Pre-Dialysis 57 BPM Sitting H eart Rate Post-Dialysis 61 BPM Temperature Pre-Dialysis 97.9 degF Temperature Post -Dialysis 97.7 degF April 20, 2023 In-Center Hemodialysis Treatment 1554-44-14A22:33:48.000Z 5804-80-56N99:51:18.000Z BP Sitting (Pre-Dialysis) 215/85 mmHg BP Sitting (Post-Dialysis) 200/90 mmHg Concurrent Access: falseAV Graft Upper Arm (Left) Arterial Sitting Heart Rate Pre-Dialysis 58 BPM Sitting H eart Rate Post-Dialysis 42 BPM Temperature Pre-Dialysis 97.6 degF Temperature Post -Dialysis 97.7 degF April 17, 2023 In-Center Hemodialysis Treatment 3590-06-88E58:43:00.000Z 5551-74-32E39:00:00.000Z BP Sitting (Pre-Dialysis) 212/85 mmHg BP Sitting (Post-Dialysis) 196/59 mmHg Concurrent Access: falseAV Graft Upper Arm (Left) Arterial Sitting Heart Rate Pre-Dialysis 57 BPM Sitting H eart Rate Post-Dialysis 58 BPM Temperature Pre-Dialysis 97.7 degF Temperature Post -Dialysis 97.5 degF April 15, 2023 In-Center Hemodialysis Treatment 4336-78-56T18:19:22.000Z 6297-68-86H58:35:12.000Z BP Sitting (Pre-Dialysis) 159/47 mmHg BP Sitting (Post-Dialysis) 181/69 mmHg Concurrent Access: falseAV Graft Upper Arm (Left) Arterial Sitting Heart Rate Pre-Dialysis 67 BPM Sitting H eart Rate Post-Dialysis 64 BPM Temperature Pre-Dialysis 98.2 degF Temperature Post -Dialysis 97.5 degF April 13, 2023 In-Center Hemodialysis Treatment 4844-09-92T62:41:00.000Z 0624-12-67E23:55:11.000Z BP Sitting (Pre-Dialysis) 223/91 mmHg BP Sitting (Post-Dialysis) 179/61 mmHg Concurrent Access: falseAV Graft Upper Arm (Left) Arterial BP Standing (Pre-Dialysis) 202/98 mmHg Sitti ng Heart Rate Post-Dialysis 59 BPM Sitting Heart Rate Pre-Dialysis 63 BPM Temperatu re Post-Dialysis 97.7 degF Standing Heart Rate Pre-Dialysis 67 BPM Temperature Pre-Dialysis 97.4 degF April 10, 2023 In-Center Hemodialysis Treatment 5322-65-12F61:47:52.000Z 2469-87-31H81:03:42.000Z BP Sitting (Pre-Dialysis) 178/77 mmHg BP Sitting (Post-Dialysis) 176/75 mmHg Concurrent Access: falseAV Graft Upper Arm (Left) Arterial Sitting Heart Rate Pre-Dialysis 57 BPM Sitting H eart Rate Post-Dialysis 60 BPM Temperature Pre-Dialysis 98.2 degF Temperature Post -Dialysis 98.2 degF April 07, 2023 In-Center Hemodialysis Treatment 7131-17-42R00:06:58.000Z 6982-88-55R32:18:13.000Z BP Sitting (Pre-Dialysis) 220/99 mmHg BP Sitting (Post-Dialysis) 199/88 mmHg Concurrent Access: falseAV Graft Upper Arm (Left) Arterial Sitting Heart Rate Pre-Dialysis 69 BPM Sitting H eart Rate Post-Dialysis 60 BPM Temperature Pre-Dialysis 98.2 degF Temperature Post -Dialysis 97.1 degF April 05, 2023 In-Center Hemodialysis Treatment 0855-75-48A12:42:04.000Z 9071-76-75B11:58:19.000Z BP Sitting (Pre-Dialysis) 246/101 mmHg BP Sitting (Post-Dialysis) 176/75 mmHg Concurrent Access: falseAV Graft Upper Arm (Left) Arterial Sitting Heart Rate Pre-Dialysis 60 BPM Sitting H eart Rate Post-Dialysis 60 BPM Temperature Pre-Dialysis 97.2 degF Temperature Post -Dialysis 97.6 degF April 03, 2023 In-Center Hemodialysis Treatment 3849-37-42E62:57:04.000Z 5816-22-18G49:12:54.000Z BP Sitting (Pre-Dialysis) 251/82 mmHg BP Sitting (Post-Dialysis) 181/68 mmHg Concurrent Access: falseAV Graft Upper Arm (Left) Arterial Sitting Heart Rate Pre-Dialysis 60 BPM Sitting H eart Rate Post-Dialysis 56 BPM Temperature Pre-Dialysis 97.2 degF Temperature Post -Dialysis 97.2 degF April 01, 2023 In-Center Hemodialysis Treatment 2613-86-89L31:27:00.000Z 3915-78-49M79:41:20.000Z BP Sitting (Pre-Dialysis) 197/83 mmHg BP Sitting (Post-Dialysis) 201/62 mmHg Concurrent Access: falseAV Graft Upper Arm (Left) Arterial Sitting Heart Rate Pre-Dialysis 64 BPM Sitting H eart Rate Post-Dialysis 59 BPM Temperature Pre-Dialysis 97.2 degF Temperature Post -Dialysis 97.6 degF March 30, 2023 In-Center Hemodialysis Treatment 9848-34-92M75:25:27.000Z 0297-03-93B60:40:52.000Z BP Sitting (Pre-Dialysis) 192/86 mmHg BP Sitting (Post-Dialysis) 198/64 mmHg Concurrent Access: falseAV Graft Upper Arm (Left) Arterial Sitting Heart Rate Pre-Dialysis 62 BPM Sitting H eart Rate Post-Dialysis 61 BPM Temperature Pre-Dialysis 98.2 degF Temperature Post -Dialysis 97.6 degF March 27, 2023 In-Center Hemodialysis Treatment 4396-33-49X14:22:59.000Z 0620-97-20T07:43:12.000Z BP Sitting (Pre-Dialysis) 201/78 mmHg BP Sitting (Post-Dialysis) 117/68 mmHg Concurrent Access: falseAV Graft Upper Arm (Left) Arterial Sitting Heart Rate Pre-Dialysis 57 BPM Sitting H eart Rate Post-Dialysis 47 BPM Temperature Pre-Dialysis 97.2 degF Temperature Post -Dialysis 97.6 degF March 25, 2023 In-Center Hemodialysis Treatment 9040-14-50S77:34:31.000Z 4353-19-22K64:34:56.000Z BP Sitting (Pre-Dialysis) 175/69 mmHg BP Sitting (Post-Dialysis) 176/84 mmHg Concurrent Access: falseAV Graft Upper Arm (Left) Arterial Sitting Heart Rate Pre-Dialysis 58 BPM Sitting H eart Rate Post-Dialysis 78 BPM Temperature Pre-Dialysis 97.2 degF Temperature Post -Dialysis 97.2 degF March 23, 2023 In-Center Hemodialysis Treatment 1214-30-54O82:07:00.000Z 3355-73-10Z97:08:52.000Z BP Sitting (Pre-Dialysis) 214/81 mmHg BP Sitting (Post-Dialysis) 218/122 mmHg Concurrent Access: falseAV Graft Upper Arm (Left) Arterial Sitting Heart Rate Pre-Dialysis 64 BPM Sitting H eart Rate Post-Dialysis 60 BPM Temperature Pre-Dialysis 97.7 degF Temperature Post -Dialysis 97.9 degF March 20, 2023 In-Center Hemodialysis Treatment 1862-41-23H53:03:00.000Z 8010-89-03N67:24:16.000Z BP Sitting (Pre-Dialysis) 164/101 mmHg BP Sitting (Post-Dialysis) 154/69 mmHg Concurrent Access: falseAV Graft Upper Arm (Left) Arterial Sitting Heart Rate Pre-Dialysis 65 BPM Sitting H eart Rate Post-Dialysis 50 BPM Temperature Pre-Dialysis 97.6 degF Temperature Post -Dialysis 98.2 degF March 18, 2023 In-Center Hemodialysis Treatment 2178-52-85J67:40:28.000Z 6367-91-55K87:52:33.000Z BP Sitting (Pre-Dialysis) 202/82 mmHg BP Sitting (Post-Dialysis) 143/87 mmHg Concurrent Access: falseAV Graft Upper Arm (Left) Arterial Sitting Heart Rate Pre-Dialysis 57 BPM Sitting H eart Rate Post-Dialysis 56 BPM Temperature Pre-Dialysis 98.2 degF Temperature Post -Dialysis 98.2 degF March 16, 2023 In-Center Hemodialysis Treatment 7850-05-94N43:10:50.000Z 3501-34-57X95:30:00.000Z BP Sitting (Pre-Dialysis) 167/78 mmHg BP Sitting (Post-Dialysis) 189/95 mmHg Concurrent Access: falseAV Graft Upper Arm (Left) Arterial Sitting Heart Rate Pre-Dialysis 64 BPM Sitting H eart Rate Post-Dialysis 66 BPM Temperature Pre-Dialysis 97.6 degF Temperature Post -Dialysis 97.6 degF March 13, 2023 In-Center Hemodialysis Treatment 0479-58-95N36:56:00.000Z 3551-23-44N14:14:45.000Z BP Sitting (Pre-Dialysis) 202/78 mmHg BP Sitting (Post-Dialysis) 209/71 mmHg Concurrent Access: falseAV Graft Upper Arm (Left) Arterial Sitting Heart Rate Pre-Dialysis 59 BPM Sitting H eart Rate Post-Dialysis 49 BPM Temperature Pre-Dialysis 97.6 degF Temperature Post -Dialysis 97.9 degF March 11, 2023 In-Center Hemodialysis Treatment 9586-97-40E37:46:16.000Z 0118-61-76O34:58:46.000Z BP Sitting (Pre-Dialysis) 159/77 mmHg BP Sitting (Post-Dialysis) 168/55 mmHg Concurrent Access: falseAV Graft Upper Arm (Left) Arterial Sitting Heart Rate Pre-Dialysis 69 BPM Sitting H eart Rate Post-Dialysis 51 BPM Temperature Pre-Dialysis 97.2 degF Temperature Post -Dialysis 97.2 degF March 09, 2023 In-Center Hemodialysis Treatment 5259-36-69V60:03:04.000Z 5164-85-91Q29:22:14.000Z BP Sitting (Pre-Dialysis) 200/99 mmHg BP Sitting (Post-Dialysis) 190/87 mmHg Concurrent Access: falseAV Graft Upper Arm (Left) Arterial Sitting Heart Rate Pre-Dialysis 85 BPM Sitting H eart Rate Post-Dialysis 59 BPM Temperature Pre-Dialysis 97.2 degF Temperature Post -Dialysis 98.2 degF March 06, 2023 In-Center Hemodialysis Treatment 7119-95-77T31:02:36.000Z 6829-77-63Y48:20:31.000Z BP Sitting (Pre-Dialysis) 211/82 mmHg BP Sitting (Post-Dialysis) 181/53 mmHg Concurrent Access: falseAV Graft Upper Arm (Left) Arterial Sitting Heart Rate Pre-Dialysis 62 BPM Sitting H eart Rate Post-Dialysis 59 BPM Temperature Pre-Dialysis 97.2 degF Temperature Post -Dialysis 97.2 degF March 04, 2023 In-Center Hemodialysis Treatment 2699-28-12T32:52:50.000Z 8978-97-91A32:54:05.000Z BP Sitting (Pre-Dialysis) 218/78 mmHg BP Sitting (Post-Dialysis) 222/84 mmHg Concurrent Access: falseAV Graft Upper Arm (Left) Arterial Sitting Heart Rate Pre-Dialysis 59 BPM Sitting H eart Rate Post-Dialysis 55 BPM Temperature Pre-Dialysis 98.2 degF Temperature Post -Dialysis 97.3 degF March 02, 2023 In-Center Hemodialysis Treatment 6961-75-45R21:55:00.000Z 3200-68-01C75:16:03.000Z BP Sitting (Pre-Dialysis) 217/82 mmHg BP Sitting (Post-Dialysis) 168/80 mmHg Concurrent Access: falseAV Graft Upper Arm (Left) Arterial Sitting Heart Rate Pre-Dialysis 62 BPM Sitting H eart Rate Post-Dialysis 53 BPM Temperature Pre-Dialysis 97.6 degF Temperature Post -Dialysis 97.6 degF February 27, 2023 In-Center Hemodialysis Treatment 0932-99-25X49:26:18.000Z 6999-60-70I68:43:23.000Z BP Sitting (Pre-Dialysis) 232/72 mmHg BP Sitting (Post-Dialysis) 159/86 mmHg Concurrent Access: falseAV Graft Upper Arm (Left) Arterial Sitting Heart Rate Pre-Dialysis 59 BPM Sitting H eart Rate Post-Dialysis 45 BPM Temperature Pre-Dialysis 97.2 degF Temperature Post -Dialysis 97.2 degF February 25, 2023 In-Center Hemodialysis Treatment 3090-71-68A90:22:52.000Z 8830-56-59P54:37:02.000Z BP Sitting (Pre-Dialysis) 187/52 mmHg BP Sitting (Post-Dialysis) 201/68 mmHg Concurrent Access: falseAV Graft Upper Arm (Left) Arterial Sitting Heart Rate Pre-Dialysis 59 BPM Sitting H eart Rate Post-Dialysis 68 BPM Temperature Pre-Dialysis 98.2 degF Temperature Post -Dialysis 98.2 degF February 23, 2023 In-Center Hemodialysis Treatment 5903-39-65B99:59:07.000Z 5025-88-27Z84:14:07.000Z BP Sitting (Pre-Dialysis) 249/73 mmHg BP Sitting (Post-Dialysis) 173/61 mmHg Concurrent Access: falseAV Graft Upper Arm (Left) Arterial Sitting Heart Rate Pre-Dialysis 60 BPM Sitting H eart Rate Post-Dialysis 60 BPM Temperature Pre-Dialysis 97.2 degF Temperature Post -Dialysis 97.1 degF February 20, 2023 In-Center Hemodialysis Treatment 9873-11-05V73:45:00.000Z 3686-37-88X00:02:15.000Z BP Sitting (Pre-Dialysis) 187/83 mmHg BP Sitting (Post-Dialysis) 216/72 mmHg Concurrent Access: falseAV Graft Upper Arm (Left) Arterial Sitting Heart Rate Pre-Dialysis 62 BPM Sitting H eart Rate Post-Dialysis 61 BPM Temperature Pre-Dialysis 97.6 degF Temperature Post -Dialysis 97.6 degF February 18, 2023 In-Center Hemodialysis Treatment 4810-20-53X04:52:00.000Z 4459-72-99T67:56:44.000Z BP Sitting (Pre-Dialysis) 119/65 mmHg BP Sitting (Post-Dialysis) 191/96 mmHg Concurrent Access: falseAV Graft Upper Arm (Left) Arterial Sitting Heart Rate Pre-Dialysis 63 BPM Sitting H eart Rate Post-Dialysis 55 BPM Temperature Pre-Dialysis 97.6 degF Temperature Post -Dialysis 98.2 degF February 16, 2023 In-Center Hemodialysis Treatment 4162-85-79P56:37:00.000Z 1482-13-93H67:41:17.000Z BP Sitting (Pre-Dialysis) 169/75 mmHg BP Sitting (Post-Dialysis) 186/55 mmHg Concurrent Access: falseAV Graft Upper Arm (Left) Arterial Sitting Heart Rate Pre-Dialysis 64 BPM Sitting H eart Rate Post-Dialysis 63 BPM Temperature Pre-Dialysis 97.5 degF Temperature Post -Dialysis 97.4 degF February 13, 2023 In-Center Hemodialysis Treatment 8142-18-80B72:39:00.000Z 1910-59-80W05:45:00.000Z BP Sitting (Pre-Dialysis) 181/95 mmHg BP Sitting (Post-Dialysis) 198/87 mmHg Concurrent Access: falseAV Graft Upper Arm (Left) Arterial Sitting Heart Rate Pre-Dialysis 65 BPM Sitting H eart Rate Post-Dialysis 87 BPM Temperature Pre-Dialysis 97.6 degF Temperature Post -Dialysis 97.2 degF February 11, 2023 In-Center Hemodialysis Treatment 4075-18-02C11:51:21.000Z 9774-95-45T79:06:46.000Z BP Sitting (Pre-Dialysis) 148/58 mmHg BP Sitting (Post-Dialysis) 172/70 mmHg Concurrent Access: falseAV Graft Upper Arm (Left) Arterial Sitting Heart Rate Pre-Dialysis 61 BPM Sitting H eart Rate Post-Dialysis 53 BPM Temperature Pre-Dialysis 97 degF Temperature Post -Dialysis 97.7 degF February 09, 2023 In-Center Hemodialysis Treatment 9601-76-66Q61:19:00.000Z 0002-90-66O65:27:06.000Z BP Sitting (Pre-Dialysis) 176/95 mmHg BP Sitting (Post-Dialysis) 156/71 mmHg Concurrent Access: falseAV Graft Upper Arm (Left) Arterial Sitting Heart Rate Pre-Dialysis 50 BPM Sitting H eart Rate Post-Dialysis 63 BPM Temperature Pre-Dialysis 98 degF Temperature Post -Dialysis 98.2 degF February 06, 2023 In-Center Hemodialysis Treatment 3963-63-73H08:24:00.000Z 2521-69-61D39:40:38.000Z BP Sitting (Pre-Dialysis) 174/82 mmHg BP Sitting (Post-Dialysis) 199/119 mmHg Concurrent Access: falseAV Graft Upper Arm (Left) Arterial Sitting Heart Rate Pre-Dialysis 45 BPM Sitting H eart Rate Post-Dialysis 68 BPM Temperature Pre-Dialysis 97.6 degF Temperature Post -Dialysis 97.9 degF February 04, 2023 In-Center Hemodialysis Treatment 2761-07-18H14:52:56.000Z 1883-16-36Q95:08:55.000Z BP Sitting (Pre-Dialysis) 197/103 mmHg BP Sitting (Post-Dialysis) 201/79 mmHg Concurrent Access: falseAV Graft Upper Arm (Left) Arterial Sitting Heart Rate Pre-Dialysis 57 BPM Sitting H eart Rate Post-Dialysis 59 BPM Temperature Pre-Dialysis 98.8 degF Temperature Post -Dialysis 98.2 degF February 02, 2023 In-Center Hemodialysis Treatment 2761-05-08F39:25:00.000Z 2297-06-22G51:47:12.000Z BP Sitting (Pre-Dialysis) 215/72 mmHg BP Sitting (Post-Dialysis) 174/57 mmHg Concurrent Access: falseAV Graft Upper Arm (Left) Arterial Sitting Heart Rate Pre-Dialysis 61 BPM Sitting H eart Rate Post-Dialysis 57 BPM Temperature Pre-Dialysis 97.7 degF Temperature Post -Dialysis 97.6 degF January 30, 2023 In-Center Hemodialysis Treatment 1123-85-13V23:52:18.000Z 9999-38-89A28:11:16.000Z BP Sitting (Pre-Dialysis) 160/57 mmHg BP Sitting (Post-Dialysis) 198/80 mmHg Concurrent Access: falseAV Graft Upper Arm (Left) Arterial Sitting Heart Rate Pre-Dialysis 62 BPM Sitting H eart Rate Post-Dialysis 59 BPM Temperature Pre-Dialysis 97.2 degF Temperature Post -Dialysis 97.6 degF January 28, 2023 In-Center Hemodialysis Treatment 8602-04-69R43:23:00.000Z 8377-57-90D63:40:17.000Z BP Sitting (Pre-Dialysis) 191/83 mmHg BP Sitting (Post-Dialysis) 145/69 mmHg Concurrent Access: falseAV Graft Upper Arm (Left) Arterial Sitting Heart Rate Pre-Dialysis 67 BPM Sitting H eart Rate Post-Dialysis 87 BPM Temperature Pre-Dialysis 97.2 degF Temperature Post -Dialysis 97.9 degF January 26, 2023 In-Center Hemodialysis Treatment 8121-77-04H07:23:08.000Z 9304-14-08P42:42:12.000Z BP Sitting (Pre-Dialysis) 202/84 mmHg BP Sitting (Post-Dialysis) 125/45 mmHg Concurrent Access: falseAV Graft Upper Arm (Left) Arterial Sitting Heart Rate Pre-Dialysis 63 BPM Sitting H eart Rate Post-Dialysis 57 BPM Temperature Pre-Dialysis 97.9 degF Temperature Post -Dialysis 97.2 degF January 23, 2023 In-Center Hemodialysis Treatment 9844-81-23B40:28:00.000Z 8373-11-62K82:48:41.000Z BP Sitting (Pre-Dialysis) 200/76 mmHg BP Sitting (Post-Dialysis) 163/61 mmHg Concurrent Access: falseAV Graft Upper Arm (Left) Arterial Sitting Heart Rate Pre-Dialysis 64 BPM Sitting H eart Rate Post-Dialysis 52 BPM Temperature Pre-Dialysis 97.2 degF Temperature Post -Dialysis 97.6 degF January 21, 2023 In-Center Hemodialysis Treatment 1817-99-82R15:55:00.000Z 1986-70-20K36:08:57.000Z BP Sitting (Pre-Dialysis) 187/68 mmHg BP Sitting (Post-Dialysis) 208/74 mmHg Concurrent Access: falseAV Graft Upper Arm (Left) Arterial Sitting Heart Rate Pre-Dialysis 61 BPM Sitting H eart Rate Post-Dialysis 63 BPM Temperature Pre-Dialysis 97.2 degF Temperature Post -Dialysis 97.2 degF January 19, 2023 In-Center Hemodialysis Treatment 4848-25-77Y62:12:00.000Z 1098-75-92Z19:27:51.000Z BP Sitting (Pre-Dialysis) 200/81 mmHg BP Sitting (Post-Dialysis) 147/69 mmHg Concurrent Access: falseAV Graft Upper Arm (Left) Arterial Sitting Heart Rate Pre-Dialysis 67 BPM Sitting H eart Rate Post-Dialysis 59 BPM Temperature Pre-Dialysis 97.9 degF Temperature Post -Dialysis 97.7 degF January 16, 2023 In-Center Hemodialysis Treatment 6620-00-43V92:45:00.000Z 8242-77-20P66:14:50.000Z BP Sitting (Pre-Dialysis) 179/64 mmHg BP Sitting (Post-Dialysis) 129/36 mmHg Concurrent Access: falseAV Graft Upper Arm (Left) Arterial Sitting Heart Rate Pre-Dialysis 57 BPM Sitting H eart Rate Post-Dialysis 60 BPM Temperature Pre-Dialysis 97.6 degF Temperature Post -Dialysis 97.2 degF January 14, 2023 In-Center Hemodialysis Treatment 3749-93-29X98:10:00.000Z 6842-05-97M67:20:56.000Z BP Sitting (Pre-Dialysis) 194/52 mmHg BP Sitting (Post-Dialysis) 164/55 mmHg Concurrent Access: falseAV Graft Upper Arm (Left) Arterial Sitting Heart Rate Pre-Dialysis 62 BPM Sitting H eart Rate Post-Dialysis 57 BPM Temperature Pre-Dialysis 97.2 degF Temperature Post -Dialysis 97.2 degF January 12, 2023 In-Center Hemodialysis Treatment 9773-17-25F90:30:00.000Z 9377-30-36I37:50:54.000Z BP Sitting (Pre-Dialysis) 180/75 mmHg BP Sitting (Post-Dialysis) 188/76 mmHg Concurrent Access: falseAV Graft Upper Arm (Left) Arterial Sitting Heart Rate Pre-Dialysis 58 BPM Sitting H eart Rate Post-Dialysis 52 BPM Temperature Pre-Dialysis 97.6 degF Temperature Post -Dialysis 97.6 degF January 09, 2023 In-Center Hemodialysis Treatment 6805-43-67R85:16:43.000Z 6763-61-15G41:13:48.000Z BP Sitting (Pre-Dialysis) 144/57 mmHg BP Sitting (Post-Dialysis) 138/65 mmHg Concurrent Access: falseAV Graft Upper Arm (Left) Arterial Sitting Heart Rate Pre-Dialysis 70 BPM Sitting H eart Rate Post-Dialysis 56 BPM Temperature Pre-Dialysis 97.4 degF Temperature Post -Dialysis 97.2 degF January 07, 2023 In-Center Hemodialysis Treatment 7857-26-39F03:58:28.000Z 4810-20-39I67:00:08.000Z BP Sitting (Pre-Dialysis) 209/76 mmHg BP Sitting (Post-Dialysis) 133/59 mmHg Concurrent Access: falseAV Graft Upper Arm (Left) Arterial Sitting Heart Rate Pre-Dialysis 63 BPM Sitting H eart Rate Post-Dialysis 55 BPM Temperature Pre-Dialysis 97.2 degF Temperature Post -Dialysis 97.2 degF January 05, 2023 In-Center Hemodialysis Treatment 2264-64-68H82:09:22.000Z 8070-20-60K68:24:22.000Z BP Sitting (Pre-Dialysis) 202/73 mmHg BP Sitting (Post-Dialysis) 161/59 mmHg Concurrent Access: falseAV Graft Upper Arm (Left) Arterial Sitting Heart Rate Pre-Dialysis 56 BPM Sitting H eart Rate Post-Dialysis 78 BPM Temperature Pre-Dialysis 97.4 degF Temperature Post -Dialysis 97.2 degF January 02, 2023 In-Center Hemodialysis Treatment 9584-61-12P20:27:10.000Z 8546-53-10A28:41:45.000Z BP Sitting (Pre-Dialysis) 155/98 mmHg BP Sitting (Post-Dialysis) 134/74 mmHg Concurrent Access: falseAV Graft Upper Arm (Left) Arterial Sitting Heart Rate Pre-Dialysis 60 BPM Sitting H eart Rate Post-Dialysis 61 BPM Temperature Pre-Dialysis 97.4 degF Temperature Post -Dialysis 97.9 degF December 31, 2022 In-Center Hemodialysis Treatment 3748-66-67K28:20:00.000Z 5694-72-16V09:39:14.000Z BP Sitting (Pre-Dialysis) 181/81 mmHg BP Sitting (Post-Dialysis) 169/79 mmHg Concurrent Access: falseAV Graft Upper Arm (Left) Arterial Sitting Heart Rate Pre-Dialysis 60 BPM Sitting H eart Rate Post-Dialysis 58 BPM Temperature Pre-Dialysis 97.6 degF Temperature Post -Dialysis 97.2 degF December 29, 2022 In-Center Hemodialysis Treatment 7292-86-15W58:15:00.000Z 2901-31-87Z37:37:01.000Z BP Sitting (Pre-Dialysis) 203/80 mmHg BP Sitting (Post-Dialysis) 175/71 mmHg Concurrent Access: falseAV Graft Upper Arm (Left) Arterial Sitting Heart Rate Pre-Dialysis 58 BPM Sitting H eart Rate Post-Dialysis 54 BPM Temperature Pre-Dialysis 97.6 degF Temperature Post -Dialysis 97.5 degF December 26, 2022 In-Center Hemodialysis Treatment 0904-92-49H64:35:00.000Z 5918-65-99Z43:55:53.000Z BP Sitting (Pre-Dialysis) 199/96 mmHg BP Sitting (Post-Dialysis) 185/83 mmHg Concurrent Access: falseAV Graft Upper Arm (Left) Arterial Sitting Heart Rate Pre-Dialysis 87 BPM Sitting H eart Rate Post-Dialysis 58 BPM Temperature Pre-Dialysis 97.2 degF Temperature Post -Dialysis 97.6 degF December 24, 2022 In-Center Hemodialysis Treatment 4096-51-38F87:24:00.000Z 3674-23-11C34:26:07.000Z BP Sitting (Pre-Dialysis) 215/96 mmHg BP Sitting (Post-Dialysis) 198/87 mmHg Concurrent Access: falseAV Graft Upper Arm (Left) Arterial Sitting Heart Rate Pre-Dialysis 59 BPM Sitting H eart Rate Post-Dialysis 61 BPM Temperature Pre-Dialysis 97.6 degF Temperature Post -Dialysis 97.6 degF December 22, 2022 In-Center Hemodialysis Treatment 5810-15-15W02:29:00.000Z 9103-47-94S99:51:45.000Z BP Sitting (Pre-Dialysis) 86/49 mmHg BP Sitting (Post-Dialysis) 199/100 mmHg Concurrent Access: falseAV Graft Upper Arm (Left) Arterial Sitting Heart Rate Pre-Dialysis 100 BPM Sitting H eart Rate Post-Dialysis 61 BPM Temperature Pre-Dialysis 97.2 degF Temperature Post -Dialysis 97.2 degF December 19, 2022 In-Center Hemodialysis Treatment 9560-64-94U73:14:39.000Z 9317-30-01S29:18:24.000Z BP Sitting (Pre-Dialysis) 181/72 mmHg BP Sitting (Post-Dialysis) 207/115 mmHg Concurrent Access: falseAV Graft Upper Arm (Left) Arterial Sitting Heart Rate Pre-Dialysis 57 BPM Sitting H eart Rate Post-Dialysis 62 BPM Temperature Pre-Dialysis 97.9 degF Temperature Post -Dialysis 97.5 degF December 17, 2022 In-Center Hemodialysis Treatment 7451-41-30R14:28:00.000Z 9032-69-47A27:47:03.000Z BP Sitting (Pre-Dialysis) 224/99 mmHg BP Sitting (Post-Dialysis) 162/68 mmHg Concurrent Access: falseAV Graft Upper Arm (Left) Arterial Sitting Heart Rate Pre-Dialysis 59 BPM Sitting H eart Rate Post-Dialysis 55 BPM Temperature Pre-Dialysis 98 degF Temperature Post -Dialysis 97.6 degF December 15, 2022 In-Center Hemodialysis Treatment 4825-35-67G96:12:00.000Z 1573-13-30I35:33:03.000Z BP Sitting (Pre-Dialysis) 211/84 mmHg BP Sitting (Post-Dialysis) 227/92 mmHg Concurrent Access: falseAV Graft Upper Arm (Left) Arterial Sitting Heart Rate Pre-Dialysis 55 BPM Sitting H eart Rate Post-Dialysis 57 BPM Temperature Pre-Dialysis 97.6 degF Temperature Post -Dialysis 97.6 degF December 12, 2022 In-Center Hemodialysis Treatment 5171-50-29G85:54:00.000Z 9207-10-36O96:12:41.000Z BP Sitting (Pre-Dialysis) 180/75 mmHg BP Sitting (Post-Dialysis) 223/83 mmHg Concurrent Access: falseAV Graft Upper Arm (Left) Arterial Sitting Heart Rate Pre-Dialysis 62 BPM Sitting H eart Rate Post-Dialysis 58 BPM Temperature Pre-Dialysis 97.6 degF Temperature Post -Dialysis 97.6 degF December 10, 2022 In-Center Hemodialysis Treatment 8363-39-28Y61:14:00.000Z 3324-06-51P28:30:42.000Z BP Sitting (Pre-Dialysis) 212/69 mmHg BP Sitting (Post-Dialysis) 182/83 mmHg Concurrent Access: falseAV Graft Upper Arm (Left) Arterial Sitting Heart Rate Pre-Dialysis 35 BPM Sitting H eart Rate Post-Dialysis 45 BPM Temperature Pre-Dialysis 97.6 degF Temperature Post -Dialysis 97.6 degF December 08, 2022 In-Center Hemodialysis Treatment 2410-67-24H78:18:42.000Z 4155-80-31B51:30:41.000Z BP Sitting (Pre-Dialysis) 200/86 mmHg BP Sitting (Post-Dialysis) 161/65 mmHg Concurrent Access: falseAV Graft Upper Arm (Left) Arterial Sitting Heart Rate Pre-Dialysis 67 BPM Sitting H eart Rate Post-Dialysis 51 BPM Temperature Pre-Dialysis 97.2 degF Temperature Post -Dialysis 97.2 degF December 05, 2022 In-Center Hemodialysis Treatment 7001-72-68U23:49:00.000Z 4908-22-10N46:55:37.000Z BP Sitting (Pre-Dialysis) 161/144 mmHg BP Sitting (Post-Dialysis) 210/84 mmHg Concurrent Access: falseAV Graft Upper Arm (Left) Arterial Sitting Heart Rate Pre-Dialysis 45 BPM Sitting H eart Rate Post-Dialysis 57 BPM Temperature Pre-Dialysis 97.6 degF Temperature Post -Dialysis 98 degF December 03, 2022 In-Center Hemodialysis Treatment 1230-93-12W88:22:00.000Z 6910-41-47W61:28:37.000Z BP Sitting (Pre-Dialysis) 227/76 mmHg BP Sitting (Post-Dialysis) 184/78 mmHg Concurrent Access: falseAV Graft Upper Arm (Left) Arterial Sitting Heart Rate Pre-Dialysis 56 BPM Sitting H eart Rate Post-Dialysis 87 BPM Temperature Pre-Dialysis 98.2 degF Temperature Post -Dialysis 97.2 degF December 01, 2022 In-Center Hemodialysis Treatment 8033-98-03P86:31:37.000Z 5323-38-84V45:48:37.000Z BP Sitting (Pre-Dialysis) 224/83 mmHg BP Sitting (Post-Dialysis) 200/73 mmHg Concurrent Access: falseAV Graft Upper Arm (Left) Arterial Sitting Heart Rate Pre-Dialysis 61 BPM Sitting H eart Rate Post-Dialysis 60 BPM Temperature Pre-Dialysis 97.4 degF Temperature Post -Dialysis 97.2 degF November 28, 2022 In-Center Hemodialysis Treatment 4986-76-44F05:55:00.000Z 1150-00-88U35:02:57.000Z BP Sitting (Pre-Dialysis) 224/94 mmHg BP Sitting (Post-Dialysis) 180/66 mmHg Concurrent Access: falseAV Graft Upper Arm (Left) Arterial Sitting Heart Rate Pre-Dialysis 62 BPM Sitting H eart Rate Post-Dialysis 60 BPM Temperature Pre-Dialysis 97.4 degF Temperature Post -Dialysis 97.4 degF November 26, 2022 In-Center Hemodialysis Treatment 9750-56-02D76:16:00.000Z 3527-37-48V57:31:29.000Z BP Sitting (Pre-Dialysis) 221/114 mmHg BP Sitting (Post-Dialysis) 167/79 mmHg Concurrent Access: falseAV Graft Upper Arm (Left) Arterial Sitting Heart Rate Pre-Dialysis 49 BPM Sitting H eart Rate Post-Dialysis 59 BPM Temperature Pre-Dialysis 97.2 degF Temperature Post -Dialysis 97.6 degF November 24, 2022 In-Center Hemodialysis Treatment 3617-18-80W49:20:29.000Z 3565-06-52Z90:41:30.000Z BP Sitting (Pre-Dialysis) 209/86 mmHg BP Sitting (Post-Dialysis) 186/81 mmHg Concurrent Access: falseAV Graft Upper Arm (Left) Arterial Sitting Heart Rate Pre-Dialysis 64 BPM Sitting H eart Rate Post-Dialysis 61 BPM Temperature Pre-Dialysis 97.6 degF Temperature Post -Dialysis 97.8 degF November 21, 2022 In-Center Hemodialysis Treatment 6761-25-90J12:20:29.000Z 1786-59-46Y48:40:30.000Z BP Sitting (Pre-Dialysis) 223/75 mmHg BP Sitting (Post-Dialysis) 199/78 mmHg Concurrent Access: falseAV Graft Upper Arm (Left) Arterial Sitting Heart Rate Pre-Dialysis 58 BPM Sitting H eart Rate Post-Dialysis 62 BPM Temperature Pre-Dialysis 97.2 degF Temperature Post -Dialysis 97.6 degF November 19, 2022 In-Center Hemodialysis Treatment 3840-72-75T79:22:00.000Z 9118-01-83T18:42:37.000Z BP Sitting (Pre-Dialysis) 201/78 mmHg BP Sitting (Post-Dialysis) 141/56 mmHg Concurrent Access: falseAV Graft Upper Arm (Left) Arterial Sitting Heart Rate Pre-Dialysis 53 BPM Sitting H eart Rate Post-Dialysis 57 BPM Temperature Pre-Dialysis 97.4 degF Temperature Post -Dialysis 97.2 degF November 17, 2022 In-Center Hemodialysis Treatment 9320-95-77B10:10:00.000Z 4039-26-56D45:28:28.000Z BP Sitting (Pre-Dialysis) 184/98 mmHg BP Sitting (Post-Dialysis) 160/76 mmHg Concurrent Access: falseAV Graft Upper Arm (Left) Arterial Sitting Heart Rate Pre-Dialysis 56 BPM Sitting H eart Rate Post-Dialysis 59 BPM Temperature Pre-Dialysis 97.8 degF Temperature Post -Dialysis 97.6 degF November 14, 2022 In-Center Hemodialysis Treatment 9834-24-76B40:39:00.000Z 6767-53-42L00:58:35.000Z BP Sitting (Pre-Dialysis) 212/81 mmHg BP Sitting (Post-Dialysis) 148/53 mmHg Concurrent Access: falseAV Graft Upper Arm (Left) Arterial Sitting Heart Rate Pre-Dialysis 60 BPM Sitting H eart Rate Post-Dialysis 41 BPM Temperature Pre-Dialysis 97.9 degF Temperature Post -Dialysis 97.9 degF November 12, 2022 In-Center Hemodialysis Treatment 3159-65-40G83:30:00.000Z 3406-23-83T42:52:19.000Z BP Sitting (Pre-Dialysis) 193/82 mmHg BP Sitting (Post-Dialysis) 189/86 mmHg Concurrent Access: falseAV Graft Upper Arm (Left) Arterial Sitting Heart Rate Pre-Dialysis 50 BPM Sitting H eart Rate Post-Dialysis 48 BPM Temperature Pre-Dialysis 97.4 degF Temperature Post -Dialysis 97.2 degF November 10, 2022 In-Center Hemodialysis Treatment 0072-97-91G66:20:00.000Z 7213-26-27K10:19:19.000Z BP Sitting (Pre-Dialysis) 222/87 mmHg BP Sitting (Post-Dialysis) 157/69 mmHg Concurrent Access: falseAV Graft Upper Arm (Left) Arterial Sitting Heart Rate Pre-Dialysis 58 BPM Sitting H eart Rate Post-Dialysis 87 BPM Temperature Pre-Dialysis 97.7 degF Temperature Post -Dialysis 97.9 degF November 07, 2022 In-Center Hemodialysis Treatment 8328-97-41A16:36:00.000Z 6422-51-83S11:54:33.000Z BP Sitting (Pre-Dialysis) 204/75 mmHg BP Sitting (Post-Dialysis) 190/74 mmHg Concurrent Access: falseAV Graft Upper Arm (Left) Arterial Sitting Heart Rate Pre-Dialysis 58 BPM Sitting H eart Rate Post-Dialysis 48 BPM Temperature Pre-Dialysis 97.7 degF Temperature Post -Dialysis 97.8 degF November 05, 2022 In-Center Hemodialysis Treatment 1387-36-21D01:12:00.000Z 1590-43-93Y62:26:33.000Z BP Sitting (Pre-Dialysis) 169/75 mmHg BP Sitting (Post-Dialysis) 189/69 mmHg Concurrent Access: falseAV Graft Upper Arm (Left) Arterial Sitting Heart Rate Pre-Dialysis 59 BPM Sitting H eart Rate Post-Dialysis 48 BPM Temperature Pre-Dialysis 97.6 degF Temperature Post -Dialysis 98.2 degF November 03, 2022 In-Center Hemodialysis Treatment 1003-70-64W68:36:00.000Z 2216-66-19P03:59:32.000Z BP Sitting (Pre-Dialysis) 214/129 mmHg BP Sitting (Post-Dialysis) 221/78 mmHg Concurrent Access: falseAV Graft Upper Arm (Left) Arterial Sitting Heart Rate Pre-Dialysis 63 BPM Sitting H eart Rate Post-Dialysis 64 BPM Temperature Pre-Dialysis 98.2 degF Temperature Post -Dialysis 98.2 degF October 31, 2022 In-Center Hemodialysis Treatment 4021-54-65R10:30:00.000Z 1366-04-82V54:49:29.000Z BP Sitting (Pre-Dialysis) 223/82 mmHg BP Sitting (Post-Dialysis) 184/77 mmHg Concurrent Access: falseAV Graft Upper Arm (Left) Arterial Sitting Heart Rate Pre-Dialysis 58 BPM Sitting H eart Rate Post-Dialysis 59 BPM Temperature Pre-Dialysis 97.7 degF Temperature Post -Dialysis 98.2 degF October 29, 2022 In-Center Hemodialysis Treatment 5003-03-16X94:57:00.000Z 9135-40-70E29:18:38.000Z BP Sitting (Pre-Dialysis) 200/78 mmHg BP Sitting (Post-Dialysis) 123/69 mmHg Concurrent Access: falseAV Graft Upper Arm (Left) Arterial Sitting Heart Rate Pre-Dialysis 60 BPM Sitting H eart Rate Post-Dialysis 69 BPM Temperature Pre-Dialysis 97.2 degF Temperature Post -Dialysis 97 degF October 27, 2022 In-Center Hemodialysis Treatment 9071-62-39B74:09:00.000Z 1087-18-40L87:26:57.000Z BP Sitting (Pre-Dialysis) 108/98 mmHg BP Sitting (Post-Dialysis) 172/85 mmHg Concurrent Access: falseAV Graft Upper Arm (Left) Arterial Sitting Heart Rate Pre-Dialysis 60 BPM Sitting H eart Rate Post-Dialysis 59 BPM Temperature Pre-Dialysis 97.6 degF Temperature Post -Dialysis 97.7 degF October 24, 2022 In-Center Hemodialysis Treatment 8165-05-83D48:00:13.000Z 9610-65-92X04:16:14.000Z BP Sitting (Pre-Dialysis) 168/60 mmHg BP Sitting (Post-Dialysis) 151/42 mmHg Concurrent Access: falseAV Graft Upper Arm (Left) Arterial Sitting Heart Rate Pre-Dialysis 52 BPM Sitting H eart Rate Post-Dialysis 57 BPM Temperature Pre-Dialysis 97.7 degF Temperature Post -Dialysis 97.4 degF October 22, 2022 In-Center Hemodialysis Treatment 9066-23-63H37:34:00.000Z 2110-44-25Y36:51:24.000Z BP Sitting (Pre-Dialysis) 210/65 mmHg BP Sitting (Post-Dialysis) 172/63 mmHg Concurrent Access: falseAV Graft Upper Arm (Left) Arterial Sitting Heart Rate Pre-Dialysis 60 BPM Sitting H eart Rate Post-Dialysis 87 BPM Temperature Pre-Dialysis 97.9 degF Temperature Post -Dialysis 97.2 degF October 20, 2022 In-Center Hemodialysis Treatment 3917-25-87A36:38:00.000Z 1111-11-93P82:57:25.000Z BP Sitting (Pre-Dialysis) 209/69 mmHg BP Sitting (Post-Dialysis) 185/82 mmHg Concurrent Access: falseAV Graft Upper Arm (Left) Arterial Sitting Heart Rate Pre-Dialysis 59 BPM Sitting H eart Rate Post-Dialysis 68 BPM Temperature Pre-Dialysis 97.2 degF Temperature Post -Dialysis 97.5 degF October 17, 2022 In-Center Hemodialysis Treatment 7138-83-14X91:29:00.000Z 9854-55-72K34:48:48.000Z BP Sitting (Pre-Dialysis) 184/70 mmHg BP Sitting (Post-Dialysis) 159/53 mmHg Concurrent Access: falseAV Graft Upper Arm (Left) Arterial Sitting Heart Rate Pre-Dialysis 60 BPM Sitting H eart Rate Post-Dialysis 59 BPM Temperature Pre-Dialysis 97.7 degF Temperature Post -Dialysis 97.3 degF October 15, 2022 In-Center Hemodialysis Treatment 5584-69-58W86:00:34.000Z 8871-71-55S27:22:58.000Z BP Sitting (Pre-Dialysis) 230/85 mmHg BP Sitting (Post-Dialysis) 184/74 mmHg Concurrent Access: falseAV Graft Upper Arm (Left) Arterial Sitting Heart Rate Pre-Dialysis 60 BPM Sitting H eart Rate Post-Dialysis 59 BPM Temperature Pre-Dialysis 97.2 degF Temperature Post -Dialysis 97.2 degF October 13, 2022 In-Center Hemodialysis Treatment 0092-98-43M96:43:00.000Z 6536-71-64G61:01:35.000Z BP Sitting (Pre-Dialysis) 201/71 mmHg BP Sitting (Post-Dialysis) 199/76 mmHg Concurrent Access: falseAV Graft Upper Arm (Left) Arterial Sitting Heart Rate Pre-Dialysis 61 BPM Sitting H eart Rate Post-Dialysis 60 BPM Temperature Pre-Dialysis 97.3 degF Temperature Post -Dialysis 97.6 degF October 10, 2022 In-Center Hemodialysis Treatment 8956-75-94G05:05:00.000Z 7200-73-42N74:55:37.000Z BP Sitting (Pre-Dialysis) 208/75 mmHg BP Sitting (Post-Dialysis) 201/98 mmHg Concurrent Access: falseAV Graft Upper Arm (Left) Arterial Sitting Heart Rate Pre-Dialysis 58 BPM Sitting H eart Rate Post-Dialysis 87 BPM Temperature Pre-Dialysis 97.7 degF Temperature Post -Dialysis 98.2 degF October 08, 2022 In-Center Hemodialysis Treatment 0009-79-66F33:01:00.000Z 1375-98-80M12:20:11.000Z BP Sitting (Pre-Dialysis) 209/87 mmHg BP Sitting (Post-Dialysis) 192/75 mmHg Concurrent Access: falseAV Graft Upper Arm (Left) Arterial Sitting Heart Rate Pre-Dialysis 61 BPM Sitting H eart Rate Post-Dialysis 56 BPM Temperature Pre-Dialysis 97.7 degF Temperature Post -Dialysis 97 degF October 06, 2022 In-Center Hemodialysis Treatment 9294-21-97X24:47:00.000Z 6772-82-97X80:50:46.000Z BP Sitting (Pre-Dialysis) 206/69 mmHg BP Sitting (Post-Dialysis) 230/80 mmHg Concurrent Access: falseAV Graft Upper Arm (Left) Arterial Sitting Heart Rate Pre-Dialysis 57 BPM Sitting H eart Rate Post-Dialysis 57 BPM Temperature Pre-Dialysis 97.7 degF Temperature Post -Dialysis 97.6 degF October 03, 2022 In-Center Hemodialysis Treatment 4012-24-31M89:33:00.000Z 4051-84-68M72:35:02.000Z BP Sitting (Pre-Dialysis) 189/141 mmHg BP Sitting (Post-Dialysis) 167/61 mmHg Concurrent Access: falseAV Graft Upper Arm (Left) Arterial Sitting Heart Rate Pre-Dialysis 61 BPM Sitting H eart Rate Post-Dialysis 62 BPM Temperature Pre-Dialysis 97.6 degF Temperature Post -Dialysis 97.6 degF October 01, 2022 In-Center Hemodialysis Treatment 8073-93-06P96:20:00.000Z 1033-88-68Z60:22:02.000Z BP Sitting (Pre-Dialysis) 215/82 mmHg BP Sitting (Post-Dialysis) 192/101 mmHg Concurrent Access: falseAV Graft Upper Arm (Left) Arterial Sitting Heart Rate Pre-Dialysis 60 BPM Sitting H eart Rate Post-Dialysis 66 BPM Temperature Pre-Dialysis 97.6 degF Temperature Post -Dialysis 97.6 degF September 29, 2022 In-Center Hemodialysis Treatment 6922-16-12S02:05:00.000Z 7171-51-59D83:56:31.000Z BP Sitting (Pre-Dialysis) 199/85 mmHg BP Sitting (Post-Dialysis) 189/87 mmHg Concurrent Access: falseAV Graft Upper Arm (Left) Arterial Sitting Heart Rate Pre-Dialysis 74 BPM Sitting H eart Rate Post-Dialysis 78 BPM Temperature Pre-Dialysis 97.9 degF Temperature Post -Dialysis 97.5 degF September 26, 2022 In-Center Hemodialysis Treatment [id number]:00:00.000Z 7071-28-21C20:01:55.000Z BP Sitting (Pre-Dialysis) 201/86 mmHg BP Sitting (Post-Dialysis) 221/75 mmHg Concurrent Access: falseAV Graft Upper Arm (Left) Arterial Sitting Heart Rate Pre-Dialysis 57 BPM Sitting H eart Rate Post-Dialysis 58 BPM Temperature Pre-Dialysis 98.2 degF Temperature Post -Dialysis 97.2 degF September 24, 2022 In-Center Hemodialysis Treatment [id number]:12:00.000Z 7418-16-88J50:59:22.000Z BP Sitting (Pre-Dialysis) 159/67 mmHg BP Sitting (Post-Dialysis) 119/69 mmHg Concurrent Access: falseAV Graft Upper Arm (Left) Arterial Sitting Heart Rate Pre-Dialysis 54 BPM Sitting H eart Rate Post-Dialysis 44 BPM Temperature Pre-Dialysis 97.7 degF Temperature Post -Dialysis 98.2 degF September 22, 2022 In-Center Hemodialysis Treatment 4575-42-27H74:34:00.000Z 1627-09-04T69:45:25.000Z BP Sitting (Pre-Dialysis) 162/87 mmHg BP Sitting (Post-Dialysis) 228/97 mmHg Concurrent Access: falseAV Graft Upper Arm (Left) Arterial Sitting Heart Rate Pre-Dialysis 64 BPM Sitting H eart Rate Post-Dialysis 56 BPM Temperature Pre-Dialysis 97.6 degF Temperature Post -Dialysis 98 degF September 19, 2022 In-Center Hemodialysis Treatment [id number]:25:00.000Z 3280-66-87G14:29:07.000Z BP Sitting (Pre-Dialysis) 218/91 mmHg BP Sitting (Post-Dialysis) 199/68 mmHg Concurrent Access: falseAV Graft Upper Arm (Left) Arterial Sitting Heart Rate Pre-Dialysis 55 BPM Sitting H eart Rate Post-Dialysis 57 BPM Temperature Pre-Dialysis 97.6 degF Temperature Post -Dialysis 97.4 degF September 17, 2022 In-Center Hemodialysis Treatment [id number]:43:00.000Z 7168-94-63P86:46:15.000Z BP Sitting (Pre-Dialysis) 230/90 mmHg BP Sitting (Post-Dialysis) 173/112 mmHg Concurrent Access: falseAV Graft Upper Arm (Left) Arterial Sitting Heart Rate Pre-Dialysis 43 BPM Sitting H eart Rate Post-Dialysis 55 BPM Temperature Pre-Dialysis 97.6 degF Temperature Post -Dialysis 97.2 degF September 15, 2022 In-Center Hemodialysis Treatment [id number]:31:06.000Z 1367-49-57L08:26:07.000Z BP Sitting (Pre-Dialysis) 209/122 mmHg BP Sitting (Post-Dialysis) 188/68 mmHg Concurrent Access: falseAV Graft Upper Arm (Left) Arterial Sitting Heart Rate Pre-Dialysis 57 BPM Sitting H eart Rate Post-Dialysis 60 BPM Temperature Pre-Dialysis 97.7 degF Temperature Post -Dialysis 97.5 degF September 12, 2022 In-Center Hemodialysis Treatment [id number]:53:00.000Z 1591-97-44S28:03:27.000Z BP Sitting (Pre-Dialysis) 210/60 mmHg BP Sitting (Post-Dialysis) 179/57 mmHg Concurrent Access: falseAV Graft Upper Arm (Left) Arterial Sitting Heart Rate Pre-Dialysis 55 BPM Sitting H eart Rate Post-Dialysis 57 BPM Temperature Pre-Dialysis 97 degF Temperature Post -Dialysis 97.7 degF September 10, 2022 In-Center Hemodialysis Treatment [id number]:56:00.000Z 3367-85-23E66:05:15.000Z BP Sitting (Pre-Dialysis) 226/91 mmHg BP Sitting (Post-Dialysis) 231/89 mmHg Concurrent Access: falseAV Graft Upper Arm (Left) Arterial Sitting Heart Rate Pre-Dialysis 56 BPM Sitting H eart Rate Post-Dialysis 54 BPM Temperature Pre-Dialysis 97.2 degF Temperature Post -Dialysis 97.6 degF September 08, 2022 In-Center Hemodialysis Treatment 1838-12-11D61:12:00.000Z 4730-10-06Z41:17:34.000Z BP Sitting (Pre-Dialysis) 132/76 mmHg BP Sitting (Post-Dialysis) 199/87 mmHg Concurrent Access: falseAV Graft Upper Arm (Left) Arterial Sitting Heart Rate Pre-Dialysis 85 BPM Sitting H eart Rate Post-Dialysis 87 BPM Temperature Pre-Dialysis 97.2 degF Temperature Post -Dialysis 97.2 degF September 05, 2022 In-Center Hemodialysis Treatment [id number]:21:16.000Z 7379-23-69O92:25:16.000Z BP Sitting (Pre-Dialysis) 212/87 mmHg BP Sitting (Post-Dialysis) 183/67 mmHg Concurrent Access: falseAV Graft Upper Arm (Left) Arterial Sitting Heart Rate Pre-Dialysis 85 BPM Sitting H eart Rate Post-Dialysis 57 BPM Temperature Pre-Dialysis 97.2 degF Temperature Post -Dialysis 97.6 degF September 03, 2022 In-Center Hemodialysis Treatment 7448-44-17U83:05:00.000Z 0915-45-09I69:13:43.000Z BP Sitting (Pre-Dialysis) 142/52 mmHg BP Sitting (Post-Dialysis) 200/79 mmHg Concurrent Access: falseAV Graft Upper Arm (Left) Arterial Sitting Heart Rate Pre-Dialysis 93 BPM Sitting H eart Rate Post-Dialysis 87 BPM Temperature Pre-Dialysis 97.2 degF Temperature Post -Dialysis 97.2 degF September 01, 2022 In-Center Hemodialysis Treatment 3880-40-52S47:23:34.000Z 3514-79-42H76:20:34.000Z BP Sitting (Pre-Dialysis) 219/74 mmHg BP Sitting (Post-Dialysis) 193/66 mmHg Concurrent Access: falseAV Graft Upper Arm (Left) Arterial Sitting Heart Rate Pre-Dialysis 56 BPM Sitting H eart Rate Post-Dialysis 57 BPM Temperature Pre-Dialysis 98.5 degF Temperature Post -Dialysis 97.3 degF August 29, 2022 In-Center Hemodialysis Treatment 0767-54-34R96:25:00.000Z 2260-15-14Q77:31:38.000Z BP Sitting (Pre-Dialysis) 205/65 mmHg BP Sitting (Post-Dialysis) 193/87 mmHg Concurrent Access: falseAV Graft Upper Arm (Left) Arterial Sitting Heart Rate Pre-Dialysis 57 BPM Sitting H eart Rate Post-Dialysis 56 BPM Temperature Pre-Dialysis 97.2 degF Temperature Post -Dialysis 97.2 degF August 27, 2022 In-Center Hemodialysis Treatment 9869-75-82R91:39:00.000Z 7251-65-45Y52:41:16.000Z BP Sitting (Pre-Dialysis) 155/61 mmHg BP Sitting (Post-Dialysis) 208/64 mmHg Concurrent Access: falseAV Graft Upper Arm (Left) Arterial Sitting Heart Rate Pre-Dialysis 57 BPM Sitting H eart Rate Post-Dialysis 87 BPM Temperature Pre-Dialysis 97.5 degF Temperature Post -Dialysis 97.2 degF August 25, 2022 In-Center Hemodialysis Treatment [id number]:09:00.000Z 8016-65-27G21:15:16.000Z BP Sitting (Pre-Dialysis) 113/85 mmHg BP Sitting (Post-Dialysis) 171/87 mmHg Concurrent Access: falseAV Graft Upper Arm (Left) Arterial Sitting Heart Rate Pre-Dialysis 57 BPM Sitting H eart Rate Post-Dialysis 56 BPM Temperature Pre-Dialysis 98 degF August 22, 2022 In-Center Hemodialysis Treatment 5399-41-95S69:26:00.000Z 2605-12-27W26:16:30.000Z BP Sitting (Pre-Dialysis) 209/64 mmHg BP Sitting (Post-Dialysis) 204/65 mmHg Concurrent Access: falseAV Graft Upper Arm (Left) Arterial Sitting Heart Rate Pre-Dialysis 58 BPM Sitting H eart Rate Post-Dialysis 60 BPM Temperature Pre-Dialysis 97.5 degF Temperature Post -Dialysis 97.5 degF August 20, 2022 In-Center Hemodialysis Treatment 5558-80-29I00:05:43.000Z 0757-86-73J01:02:42.000Z BP Sitting (Pre-Dialysis) 175/66 mmHg BP Sitting (Post-Dialysis) 187/58 mmHg Concurrent Access: falseAV Graft Upper Arm (Left) Arterial Sitting Heart Rate Pre-Dialysis 57 BPM Sitting H eart Rate Post-Dialysis 97 BPM Temperature Pre-Dialysis 97.2 degF Temperature Post -Dialysis 98 degF August 18, 2022 In-Center Hemodialysis Treatment [id number]:16:00.000Z 5863-85-87N74:21:44.000Z BP Sitting (Pre-Dialysis) 127/52 mmHg BP Sitting (Post-Dialysis) 166/63 mmHg Concurrent Access: falseAV Graft Upper Arm (Left) Arterial Sitting Heart Rate Pre-Dialysis 80 BPM Sitting H eart Rate Post-Dialysis 56 BPM Temperature Pre-Dialysis 97.6 degF Temperature Post -Dialysis 97.5 degF August 15, 2022 In-Center Hemodialysis Treatment 6204-67-45B49:54:00.000Z 2732-06-76F68:58:16.000Z BP Sitting (Pre-Dialysis) 162/67 mmHg BP Sitting (Post-Dialysis) 181/48 mmHg Concurrent Access: falseAV Graft Upper Arm (Left) Arterial Sitting Heart Rate Pre-Dialysis 62 BPM Sitting H eart Rate Post-Dialysis 63 BPM Temperature Pre-Dialysis 99.1 degF Temperature Post -Dialysis 97.7 degF August 13, 2022 In-Center Hemodialysis Treatment 3850-99-12J16:27:00.000Z 4853-88-98X39:30:47.000Z BP Sitting (Pre-Dialysis) 145/55 mmHg BP Sitting (Post-Dialysis) 193/64 mmHg Concurrent Access: falseAV Graft Upper Arm (Left) Arterial Sitting Heart Rate Pre-Dialysis 55 BPM Sitting H eart Rate Post-Dialysis 56 BPM Temperature Pre-Dialysis 97.7 degF Temperature Post -Dialysis 97.6 degF August 11, 2022 In-Center Hemodialysis Treatment 3725-49-38C88:58:00.000Z 0467-36-46V30:01:14.000Z BP Sitting (Pre-Dialysis) 166/54 mmHg BP Sitting (Post-Dialysis) 185/62 mmHg Concurrent Access: falseAV Graft Upper Arm (Left) Arterial Sitting Heart Rate Pre-Dialysis 62 BPM Sitting H eart Rate Post-Dialysis 56 BPM Temperature Pre-Dialysis 97.9 degF Temperature Post -Dialysis 97.2 degF August 08, 2022 In-Center Hemodialysis Treatment [id number]:33:00.000Z 5428-75-29B67:36:37.000Z BP Sitting (Pre-Dialysis) 213/88 mmHg BP Sitting (Post-Dialysis) 207/66 mmHg Concurrent Access: falseAV Graft Upper Arm (Left) Arterial Sitting Heart Rate Pre-Dialysis 59 BPM BP Standing (Post-Dialysis) 165/67 mmHg Temperature Pre-Dialysis 97.9 degF Sitting Heart Ra te Post-Dialysis 58 BPM Standing Heart Rate Post-Mayra lysis 63 BPM Temperature Post-Dialysis 97 .2 degF August 06, 2022 In-Center Hemodialysis Treatment [id number]:46:00.000Z 9557-86-05K21:49:37.000Z BP Sitting (Pre-Dialysis) 183/73 mmHg BP Sitting (Post-Dialysis) 139/88 mmHg Concurrent Access: falseAV Graft Upper Arm (Left) Arterial Sitting Heart Rate Pre-Dialysis 62 BPM Sitting H eart Rate Post-Dialysis 59 BPM Temperature Pre-Dialysis 97.7 degF Temperature Post -Dialysis 97.6 degF July 30, 2022 In-Center Hemodialysis Treatment 2657-64-38F45:49:00.000Z 8915-91-51Z52:48:32.000Z BP Sitting (Pre-Dialysis) 256/57 mmHg BP Sitting (Post-Dialysis) 215/56 mmHg Concurrent Access: falseAV Graft Upper Arm (Left) Arterial BP Standing (Pre-Dialysis) 225/48 mmHg BP Standing (P ost-Dialysis) 167/50 mmHg Sitting Heart Rate Pre-Dialysis 55 BPM Sitting Heart Rate Post-Dialysis 56 BPM Standing Heart Rate Pre-Dialysis 55 BPM Standing Heart Rate Post-Dialysis 61 BPM Temperature Pre-Dialysis 96.6 degF Temperature Post -Dialysis 97.6 degF July 28, 2022 In-Center Hemodialysis Treatment 4883-47-74X19:57:00.000Z 2878-77-71Z88:01:32.000Z BP Sitting (Pre-Dialysis) 164/63 mmHg BP Sitting (Post-Dialysis) 184/63 mmHg Concurrent Access: falseAV Graft Upper Arm (Left) Arterial Sitting Heart Rate Pre-Dialysis 55 BPM BP Standing (Post-Dialysis) 183/50 mmHg Temperature Pre-Dialysis 97.4 degF Sitting Heart Ra te Post-Dialysis 52 BPM Standing Heart Rate Post-Mayra lysis 54 BPM Temperature Post-Dialysis 98 degF July 25, 2022 In-Center Hemodialysis Treatment 1076-28-18F54:44:00.000Z 3949-48-29J02:48:35.000Z BP Sitting (Pre-Dialysis) 214/71 mmHg BP Sitting (Post-Dialysis) 209/67 mmHg Concurrent Access: falseAV Graft Upper Arm (Left) Arterial Sitting Heart Rate Pre-Dialysis 56 BPM BP Standing (Post-Dialysis) 134/111 mmHg Temperature Pre-Dialysis 97.4 degF Sitting Heart Ra te Post-Dialysis 61 BPM Standing Heart R ate Post-Dialysis 73 BPM Temperature Post-Dialysis 97 .6 degF July 23, 2022 In-Center Hemodialysis Treatment 1559-43-48G23:28:34.000Z 0666-60-39T88:30:35.000Z BP Sitting (Pre-Dialysis) 223/83 mmHg BP Sitting (Post-Dialysis) 176/73 mmHg Concurrent Access: falseAV Graft Upper Arm (Left) Arterial Sitting Heart Rate Pre-Dialysis 58 BPM BP Standing (Post-Dialysis) 186/48 mmHg Temperature Pre-Dialysis 97.5 degF Sitting Heart Ra te Post-Dialysis 57 BPM Standing Heart Rate Post-Mayra lysis 63 BPM Temperature Post-Dialysis 97 .4 degF July 21, 2022 In-Center Hemodialysis Treatment 7880-37-62E51:39:00.000Z 5631-17-67Z03:41:35.000Z BP Sitting (Pre-Dialysis) 230/92 mmHg BP Sitting (Post-Dialysis) 199/65 mmHg Concurrent Access: falseAV Graft Upper Arm (Left) Arterial Sitting Heart Rate Pre-Dialysis 61 BPM BP Standing (Post-Dialysis) 126/65 mmHg Temperature Pre-Dialysis 97.5 degF Sitting Heart Ra te Post-Dialysis 59 BPM Standing Heart Rate Post-Mayra lysis 67 BPM Temperature Post-Dialysis 97 .7 degF July 18, 2022 In-Center Hemodialysis Treatment [id number]:58:25.000Z 5121-68-12O01:02:24.000Z BP Sitting (Pre-Dialysis) 220/88 mmHg BP Sitting (Post-Dialysis) 182/58 mmHg Concurrent Access: falseAV Graft Upper Arm (Left) Arterial Sitting Heart Rate Pre-Dialysis 54 BPM Sitting H eart Rate Post-Dialysis 53 BPM Temperature Pre-Dialysis 97.5 degF July 16, 2022 In-Center Hemodialysis Treatment 0425-25-83P22:18:00.000Z 3709-98-93V58:20:33.000Z BP Sitting (Pre-Dialysis) 198/66 mmHg BP Sitting (Post-Dialysis) 172/46 mmHg Concurrent Access: falseAV Graft Upper Arm (Left) Arterial BP Standing (Pre-Dialysis) 182/59 mmHg Sitti ng Heart Rate Post-Dialysis 55 BPM Sitting Heart Rate Pre-Dialysis 58 BPM Temperatu re Post-Dialysis 97.5 degF Standing Heart Rate Pre-Dialysis 61 BPM Temperature Pre-Dialysis 99.5 degF July 14, 2022 In-Center Hemodialysis Treatment [id number]:21:00.000Z 3947-35-28V18:25:35.000Z BP Sitting (Pre-Dialysis) 181/59 mmHg BP Sitting (Post-Dialysis) 169/54 mmHg Concurrent Access: falseAV Graft Upper Arm (Left) Arterial Sitting Heart Rate Pre-Dialysis 58 BPM BP Standing (Post-Dialysis) 169/40 mmHg Temperature Pre-Dialysis 97.4 degF Sitting Heart Ra te Post-Dialysis 56 BPM Standing Heart Rate Post-Mayra lysis 64 BPM Temperature Post-Dialysis 97 .5 degF July 11, 2022 In-Center Hemodialysis Treatment [id number]:38:00.000Z 1377-74-47N44:39:38.000Z BP Sitting (Pre-Dialysis) 201/73 mmHg BP Sitting (Post-Dialysis) 146/42 mmHg Concurrent Access: falseAV Graft Upper Arm (Left) Arterial BP Standing (Pre-Dialysis) 207/76 mmHg BP Standing (P ost-Dialysis) 162/37 mmHg Sitting Heart Rate Pre-Dialysis 55 BPM Sitting Heart Rate Post-Dialysis 52 BPM Standing Heart Rate Pre-Dialysis 54 BPM Standing Heart Rate Post-Dialysis 62 BPM Temperature Pre-Dialysis 97.5 degF Temperature Post -Dialysis 97.7 degF July 09, 2022 In-Center Hemodialysis Treatment 1682-08-29A02:54:00.000Z 7815-34-49Q53:57:22.000Z BP Sitting (Pre-Dialysis) 152/45 mmHg BP Sitting (Post-Dialysis) 157/48 mmHg Concurrent Access: falseAV Graft Upper Arm (Left) Arterial BP Standing (Pre-Dialysis) 160/41 mmHg BP Standing (P ost-Dialysis) 134/44 mmHg Sitting Heart Rate Pre-Dialysis 55 BPM Sitting Heart Rate Post-Dialysis 52 BPM Standing Heart Rate Pre-Dialysis 57 BPM Standing Heart Rate Post-Dialysis 54 BPM Temperature Pre-Dialysis 97.4 degF Temperature Post -Dialysis 97.6 degF July 04, 2022 In-Center Hemodialysis Treatment [id number]:10:00.000Z 5206-58-96X12:15:05.000Z BP Sitting (Pre-Dialysis) 171/55 mmHg BP Sitting (Post-Dialysis) 173/37 mmHg Concurrent Access: falseAV Graft Upper Arm (Left) Arterial BP Standing (Pre-Dialysis) 149/44 mmHg BP Standing (P ost-Dialysis) 138/34 mmHg Sitting Heart Rate Pre-Dialysis 56 BPM Sitting Heart Rate Post-Dialysis 56 BPM Standing Heart Rate Pre-Dialysis 61 BPM Standing Heart Rate Post-Dialysis 66 BPM Temperature Pre-Dialysis 97.7 degF Temperature Post -Dialysis 97.5 degF July 02, 2022 In-Center Hemodialysis Treatment [id number]:56:00.000Z 9632-50-18N54:26:34.000Z BP Sitting (Pre-Dialysis) 152/53 mmHg BP Sitting (Post-Dialysis) 182/51 mmHg Concurrent Access: falseAV Graft Upper Arm (Left) Arterial BP Standing (Pre-Dialysis) 124/51 mmHg BP Standing (P ost-Dialysis) 149/59 mmHg Sitting Heart Rate Pre-Dialysis 57 BPM Sitting Heart Rate Post-Dialysis 56 BPM Standing Heart Rate Pre-Dialysis 62 BPM Standing Heart Rate Post-Dialysis 62 BPM Temperature Pre-Dialysis 97.4 degF Temperature Post -Dialysis 97.5 degF June 30, 2022 In-Center Hemodialysis Treatment 3574-07-62R06:50:00.000Z 0781-01-07O86:56:19.000Z BP Sitting (Pre-Dialysis) 184/60 mmHg BP Sitting (Post-Dialysis) 152/35 mmHg Concurrent Access: falseAV Graft Upper Arm (Left) Arterial BP Standing (Pre-Dialysis) 183/64 mmHg BP Standing (P ost-Dialysis) 121/34 mmHg Sitting Heart Rate Pre-Dialysis 55 BPM Sitting Heart Rate Post-Dialysis 59 BPM Standing Heart Rate Pre-Dialysis 56 BPM Standing Heart Rate Post-Dialysis 63 BPM Temperature Pre-Dialysis 97.6 degF Temperature Post -Dialysis 98.2 degF June 27, 2022 In-Center Hemodialysis Treatment [id number]:56:00.000Z 0338-34-92B58:00:39.000Z BP Sitting (Pre-Dialysis) 187/65 mmHg BP Sitting (Post-Dialysis) 133/57 mmHg Concurrent Access: falseAV Graft Upper Arm (Left) Arterial BP Standing (Pre-Dialysis) 194/71 mmHg BP Standing (P ost-Dialysis) 167/42 mmHg Sitting Heart Rate Pre-Dialysis 60 BPM Sitting Heart Rate Post-Dialysis 57 BPM Standing Heart Rate Pre-Dialysis 58 BPM Standing Heart Rate Post-Dialysis 64 BPM Temperature Pre-Dialysis 97.4 degF Temperature Post -Dialysis 97.4 degF June 25, 2022 In-Center Hemodialysis Treatment [id number]:59:00.000Z 5673-64-37F76:45:32.000Z BP Sitting (Pre-Dialysis) 196/54 mmHg BP Sitting (Post-Dialysis) 190/45 mmHg Concurrent Access: falseAV Graft Upper Arm (Left) Arterial BP Standing (Pre-Dialysis) 220/83 mmHg BP Standing (P ost-Dialysis) 180/48 mmHg Sitting Heart Rate Pre-Dialysis 58 BPM Sitting Heart Rate Post-Dialysis 60 BPM Standing Heart Rate Pre-Dialysis 58 BPM Standing Heart Rate Post-Dialysis 61 BPM Temperature Pre-Dialysis 97.4 degF Temperature Post -Dialysis 97.3 degF June 23, 2022 In-Center Hemodialysis Treatment [id number]:13:00.000Z 1229-93-72V48:14:41.000Z BP Sitting (Pre-Dialysis) 165/45 mmHg BP Sitting (Post-Dialysis) 159/42 mmHg Concurrent Access: falseAV Graft Upper Arm (Left) Arterial BP Standing (Pre-Dialysis) 155/30 mmHg BP Standing (P ost-Dialysis) 121/38 mmHg Sitting Heart Rate Pre-Dialysis 54 BPM Sitting Heart Rate Post-Dialysis 53 BPM Standing Heart Rate Pre-Dialysis 55 BPM Standing Heart Rate Post-Dialysis 60 BPM Temperature Pre-Dialysis 97.7 degF Temperature Post -Dialysis 97.3 degF June 20, 2022 In-Center Hemodialysis Treatment [id number]:31:00.000Z 8121-51-04O01:51:45.000Z BP Sitting (Pre-Dialysis) 131/45 mmHg BP Sitting (Post-Dialysis) 135/48 mmHg Concurrent Access: falseAV Graft Upper Arm (Left) Arterial Sitting Heart Rate Pre-Dialysis 55 BPM BP Standing (Post-Dialysis) 145/36 mmHg Temperature Pre-Dialysis 98.1 degF Sitting Heart Ra te Post-Dialysis 55 BPM Standing Heart Rate Post-Mayra lysis 55 BPM Temperature Post-Dialysis 97 .7 degF June 18, 2022 In-Center Hemodialysis Treatment 8349-23-23H19:52:00.000Z 9323-36-96W72:54:19.000Z BP Sitting (Pre-Dialysis) 194/62 mmHg BP Sitting (Post-Dialysis) 134/116 mmHg Concurrent Access: falseAV Graft Upper Arm (Left) Arterial BP Standing (Pre-Dialysis) 200/66 mmHg BP Standing (P ost-Dialysis) 114/36 mmHg Sitting Heart Rate Pre-Dialysis 52 BPM Sitting Heart Rate Post-Dialysis 43 BPM Standing Heart Rate Pre-Dialysis 52 BPM Standing Heart Rate Post-Dialysis 58 BPM Temperature Pre-Dialysis 97 degF Temperature Post -Dialysis 97.6 degF June 16, 2022 In-Center Hemodialysis Treatment 6261-12-78P02:48:00.000Z 9060-46-63W07:52:45.000Z BP Sitting (Pre-Dialysis) 188/66 mmHg BP Sitting (Post-Dialysis) 138/46 mmHg Concurrent Access: falseAV Graft Upper Arm (Left) Arterial Sitting Heart Rate Pre-Dialysis 55 BPM BP Standing (Post-Dialysis) 141/47 mmHg Temperature Pre-Dialysis 97.4 degF Sitting Heart Ra te Post-Dialysis 53 BPM Standing Heart Rate Post-Mayra lysis 59 BPM Temperature Post-Dialysis 97 .5 degF June 13, 2022 In-Center Hemodialysis Treatment 0606-06-92H12:53:00.000Z 5023-96-57Y09:53:02.000Z BP Sitting (Pre-Dialysis) 206/63 mmHg BP Sitting (Post-Dialysis) 154/43 mmHg Concurrent Access: falseAV Graft Upper Arm (Left) Arterial BP Standing (Pre-Dialysis) 211/64 mmHg BP Standing (P ost-Dialysis) 113/38 mmHg Sitting Heart Rate Pre-Dialysis 56 BPM Sitting Heart Rate Post-Dialysis 84 BPM Standing Heart Rate Pre-Dialysis 55 BPM Standing Heart Rate Post-Dialysis 57 BPM Temperature Pre-Dialysis 97.5 degF Temperature Post -Dialysis 97.2 degF June 11, 2022 In-Center Hemodialysis Treatment [id number]:02:00.000Z 4169-17-73X38:59:02.000Z BP Sitting (Pre-Dialysis) 186/63 mmHg BP Sitting (Post-Dialysis) 130/53 mmHg Concurrent Access: falseAV Graft Upper Arm (Left) Arterial Sitting Heart Rate Pre-Dialysis 58 BPM BP Standing (Post-Dialysis) 125/38 mmHg Temperature Pre-Dialysis 97.2 degF Sitting Heart Ra te Post-Dialysis 81 BPM Standing Heart Rate Post-Mayra lysis 85 BPM Temperature Post-Dialysis 97 .7 degF June 09, 2022 In-Center Hemodialysis Treatment [id number]:50:48.000Z 1455-78-73H83:50:48.000Z BP Sitting (Pre-Dialysis) 141/34 mmHg BP Sitting (Post-Dialysis) 169/44 mmHg Concurrent Access: falseAV Graft Upper Arm (Left) Arterial BP Standing (Pre-Dialysis) 127/32 mmHg Sitti ng Heart Rate Post-Dialysis 60 BPM Sitting Heart Rate Pre-Dialysis 55 BPM Temperatu re Post-Dialysis 97.8 degF Standing Heart Rate Pre-Dialysis 57 BPM Temperature Pre-Dialysis 97.7 degF June 06, 2022 In-Center Hemodialysis Treatment 8715-43-60P47:38:58.000Z [id number]:10:58.000Z BP Sitting (Pre-Dialysis) 148/44 mmHg BP Sitting (Post-Dialysis) 163/59 mmHg Concurrent Access: falseAV Graft Upper Arm (Left) Arterial BP Standing (Pre-Dialysis) 147/43 mmHg BP Standing (P ost-Dialysis) 174/70 mmHg Sitting Heart Rate Pre-Dialysis 56 BPM Sitting Heart Rate Post-Dialysis 56 BPM Standing Heart Rate Pre-Dialysis 57 BPM Standing Heart Rate Post-Dialysis 62 BPM Temperature Pre-Dialysis 97.7 degF Temperature Post -Dialysis 97.4 degF DIALYSIS ORDER Dialysis Procedure Orders Type of Dialysis Procedure Order Order Date/Time Observations In-Center Hemodialysis Treatment 2024 Target Weight 84.5 kg Dialysate Flow Rate 800 mL/min Blood Flow Rate 350 mL/min Treatment Time 195 min(total) Max UF Rate 13 mL/kg/hr Base Sodium Dialysate Base Sodium 138 mE q/L dialysate_temp 36 C BiCarb Dialysate BiCarbonate 37 mEq/L Access Concurrent No Arterial Access AV Graft (Upper Arm (Left)) Venous Access AV Graft (Upper Arm (Left)) Arterial Needle Display NIPRO, TUL[place], 16 G x 1, SHARP , TWIN Venous Needle NIPRO, [place], 16G x 1, SHARP , TWIN Dialyzer [employer] Optiflux F 180NR 1218 [email or web address] Dialysate Bath Potassium Potassium 2 mEq /L Dialysate Bath Calcium Calcium 2.5 mEq/L [facility] Value Target Weight 85.5 kg Dialysate Flow Rate 800 mL/min Blood Flow Rate 350 mL/min Treatment Time 195 min(total) Max UF Rate 13 mL/kg/hr Base Sodium Dialysate Base Sodium 138 mE q/L dialysate_temp 36 C BiCarb Dialysate BiCarbonate 37 mEq/L Access Concurrent No Arterial Access AV Graft (Upper Arm (Left)) Venous Access AV Graft (Upper Arm (Left)) Arterial Needle Display NIPRO, [place], 16 G x 1, SHARP , TWIN Venous Needle NIPRO, [place], 16G x 1, SHARP , TWIN Dialyzer [employer] Optiflux F 180NR 1218 [email or web address] Dialysate Bath Potassium Potassium 2 mEq /L Dialysate Bath Calcium Calcium 2.5 mEq/L Results Adequacy Description Draw Date Result/Unit Status Ref Range Result Comments URR% 2025-02-07 15:20:54 74 % F DIALYZER FLOW-QD 2025-02-07 15:20:54 800 mL/min F Dialyzer LOBITO 2025-02-07 15:20:54 1218 Calc F LENGTH OF DIALYSIS 2025-02-07 15:20:54 197 min F PATIENT AGE 2025-02-07 15:20:54 79 Years F BSA JHONATHAN 2025-02-07 15:20:54 2.03 sq m F WEIGHT - POST DAY 1 2025-02-07 15:20:54 85 kg F HEIGHT IN INCHES 2025-02-07 15:20:54 70 Inches F WEIGHT - PRE DAY 1 2025-02-07 15:20:54 85 kg F WEIGHT (KG) 2025-02-07 15:20:54 84.5 kg F PRESCRIBED DAYS/WEEK 2025-02-07 15:20:54 3 Day/Wk F VT (KT/V TX VOL) 2025-02-07 15:20:54 37 L F VM (KT/V MEAN VOL) 2025-02-07 15:20:54 38.3 F Residual kt/v 2025-02-07 15:20:54 F Total Kt/V 2025-02-07 15:20:54 1.43 F nPCR 2025-02-07 15:20:54 1.09 G/KG/D F KT/V PRESCRIBED 2025-02-07 15:20:54 1.47 F AMPUTATE FACTOR 2025-02-07 15:20:54 0 F TBW ([place]) 2025-02-07 15:20:54 42.79 Liters F spKt/V 2025-02-07 15:20:54 1.43 F eKt/V 2025-02-07 15:20:54 1.21 F stdKt/V (DIAL) 2025-02-07 15:20:54 N/A F TOTAL HOURS/WEEK DIALYSIS 2025-02-07 15:20:54 9 hrs F stdKT/V Total 2025-02-07 15:20:54 N/A F Std Renal KT/V 2025-02-07 15:20:54 N/A F BLOOD FLOW-QWB 2025-02-07 15:20:54 349 F CURRENT KRU 2025-02-07 15:20:54 F Urea nitrogen [Mass/volume] in Serum or Plasma 2025-02-07 15:19:16 77 mg/dL F 9.0-23.0 Creatinine [Mass/volume] in Serum or Plasma 2025-02-07 15:19:16 5.86 mg/dL F 0.7-1.3 Urea nitrogen [Mass/volume] in Serum or Plasma --post dialysis 2025-02-07 15:13:20 20 mg/dL F 9.0-23.0 DIALYZER FLOW-QD 2025-02-02 15:37:16 800 mL/min F URR% 2025-02-02 15:37:16 59 % F Dialyzer LOBITO 2025-02-02 15:37:16 1218 Calc F LENGTH OF DIALYSIS 2025-02-02 15:37:16 196 min F PATIENT AGE 2025-02-02 15:37:16 79 Years F BSA JHONATHAN 2025-02-02 15:37:16 2.03 sq m F WEIGHT - POST DAY 1 2025-02-02 15:37:16 84.5 kg F WEIGHT - PRE DAY 1 2025-02-02 15:37:16 84.4 kg F HEIGHT IN INCHES 2025-02-02 15:37:16 70 Inches F WEIGHT (KG) 2025-02-02 15:37:16 84.5 kg F PRESCRIBED DAYS/WEEK 2025-02-02 15:37:16 3 Day/Wk F VT (KT/V TX VOL) 2025-02-02 15:37:16 54.5 L F VM (KT/V MEAN VOL) 2025-02-02 15:37:16 38.7 F Residual kt/v 2025-02-02 15:37:16 F Total Kt/V 2025-02-02 15:37:16 0.97 F KT/V PRESCRIBED 2025-02-02 15:37:16 1.46 F nPCR 2025-02-02 15:37:16 1.07 G/KG/D F AMPUTATE FACTOR 2025-02-02 15:37:16 0 F TBW ([facility]) 2025-02-02 15:37:16 42.62 Liters F spKt/V 2025-02-02 15:37:16 0.97 F eKt/V 2025-02-02 15:37:16 0.83 F Std Renal KT/V 2025-02-02 15:37:16 N/A F TOTAL HOURS/WEEK DIALYSIS 2025-02-02 15:37:16 9 hrs F stdKT/V Total 2025-02-02 15:37:16 N/A F stdKt/V (DIAL) 2025-02-02 15:37:16 N/A F BLOOD FLOW-QWB 2025-02-02 15:37:16 349 F CURRENT KRU 2025-02-02 15:37:16 F Urea nitrogen [Mass/volume] in Serum or Plasma 2025-02-02 15:35:22 74 mg/dL F 9.0-23.0 Urea nitrogen [Mass/volume] in Serum or Plasma --post dialysis 2025-02-02 15:06:18 30 mg/dL F 9.0-23.0 URR% 2025-01-28 22:12:48 64 % F Dialyzer LOBITO 2025-01-28 22:12:48 1218 Calc F DIALYZER FLOW-QD 2025-01-28 22:12:48 800 mL/min F LENGTH OF DIALYSIS 2025-01-28 22:12:48 198 min F PATIENT AGE 2025-01-28 22:12:48 79 Years F BSA JHONATHAN 2025-01-28 22:12:48 2.03 sq m F HEIGHT IN INCHES 2025-01-28 22:12:48 70 Inches F WEIGHT - PRE DAY 1 2025-01-28 22:12:48 85.3 kg F WEIGHT - POST DAY 1 2025-01-28 22:12:48 85.1 kg F WEIGHT (KG) 2025-01-28 22:12:48 84.5 kg F PRESCRIBED DAYS/WEEK 2025-01-28 22:12:48 3 Day/Wk F VT (KT/V TX VOL) 2025-01-28 22:12:48 44.9 L F VM (KT/V MEAN VOL) 2025-01-28 22:12:48 38.7 F Residual kt/v 2025-01-28 22:12:48 F Total Kt/V 2025-01-28 22:12:48 1.11 F nPCR 2025-01-28 22:12:48 1.4 G/KG/D F AMPUTATE FACTOR 2025-01-28 22:12:48 0 F KT/V PRESCRIBED 2025-01-28 22:12:48 1.48 F TBW ([place]) 2025-01-28 22:12:48 42.83 Liters F spKt/V 2025-01-28 22:12:48 1.11 F eKt/V 2025-01-28 22:12:48 0.95 F stdKt/V (DIAL) 2025-01-28 22:12:48 N/A F Std Renal KT/V 2025-01-28 22:12:48 N/A F stdKT/V Total 2025-01-28 22:12:48 N/A F TOTAL HOURS/WEEK DIALYSIS 2025-01-28 22:12:48 7 hrs F BLOOD FLOW-QWB 2025-01-28 22:12:48 314 F CURRENT KRU 2025-01-28 22:12:48 F Urea nitrogen [Mass/volume] in Serum or Plasma 2025-01-28 22:11:09 86 mg/dL F 9.0-23.0 Urea nitrogen [Mass/volume] in Serum or Plasma --post dialysis 2025-01-28 20:18:15 31 mg/dL F 9.0-23.0 URR% 2025-01-24 22:02:21 50 % F DIALYZER FLOW-QD 2025-01-24 22:02:21 800 mL/min F Dialyzer LOBITO 2025-01-24 22:02:21 1218 Calc F PATIENT AGE 2025-01-24 22:02:21 79 Years F BSA JHONATHAN 2025-01-24 22:02:21 2.03 sq m F LENGTH OF DIALYSIS 2025-01-24 22:02:21 61 min F WEIGHT - POST DAY 1 2025-01-24 22:02:21 83.8 kg F WEIGHT - PRE DAY 1 2025-01-24 22:02:21 83.9 kg F HEIGHT IN INCHES 2025-01-24 22:02:21 70 Inches F WEIGHT (KG) 2025-01-24 22:02:21 84.5 kg F PRESCRIBED DAYS/WEEK 2025-01-24 22:02:21 3 Day/Wk F VM (KT/V MEAN VOL) 2025-01-24 22:02:21 36.6 F VT (KT/V TX VOL) 2025-01-24 22:02:21 23.1 L F Residual kt/v 2025-01-24 22:02:21 F Total Kt/V 2025-01-24 22:02:21 0.71 F KT/V PRESCRIBED 2025-01-24 22:02:21 0.46 F nPCR 2025-01-24 22:02:21 0.78 G/KG/D F AMPUTATE FACTOR 2025-01-24 22:02:21 0 F TBW ([place]) 2025-01-24 22:02:21 42.39 Liters F spKt/V 2025-01-24 22:02:21 0.71 F eKt/V 2025-01-24 22:02:21 0.44 F stdKt/V (DIAL) 2025-01-24 22:02:21 N/A F Std Renal KT/V 2025-01-24 22:02:21 N/A F TOTAL HOURS/WEEK DIALYSIS 2025-01-24 22:02:21 9 hrs F stdKT/V Total 2025-01-24 22:02:21 N/A F BLOOD FLOW-QWB 2025-01-24 22:02:21 349 F CURRENT KRU 2025-01-24 22:02:21 F Urea nitrogen [Mass/volume] in Serum or Plasma 2025-01-24 22:00:13 72 mg/dL F 9.0-23.0 Urea nitrogen [Mass/volume] in Serum or Plasma --post dialysis 2025-01-24 19:23:14 36 mg/dL F 9.0-23.0 Creatinine [Mass/volume] in Serum or Plasma 2025-01-10 15:36:17 5.88 mg/dL F 0.7-1.3 URR% 2024-12-28 07:18:50 74 % F DIALYZER FLOW-QD 2024-12-28 07:18:50 800 mL/min F Dialyzer LOBITO 2024-12-28 07:18:50 1218 Calc F PATIENT AGE 2024-12-28 07:18:50 79 Years F BSA JHONATHAN 2024-12-28 07:18:50 2.04 sq m F WEIGHT - POST DAY 1 2024-12-28 07:18:50 84 kg F LENGTH OF DIALYSIS 2024-12-28 07:18:50 195 min F WEIGHT - PRE DAY 1 2024-12-28 07:18:50 83.9 kg F HEIGHT IN INCHES 2024-12-28 07:18:50 70 Inches F WEIGHT (KG) 2024-12-28 07:18:50 85.5 kg F VT (KT/V TX VOL) 2024-12-28 07:18:50 36.7 L F PRESCRIBED DAYS/WEEK 2024-12-28 07:18:50 3 Day/Wk F Residual kt/v 2024-12-28 07:18:50 F VM (KT/V MEAN VOL) 2024-12-28 07:18:50 36.6 F KT/V PRESCRIBED 2024-12-28 07:18:50 1.44 F Total Kt/V 2024-12-28 07:18:50 1.43 F nPCR 2024-12-28 07:18:50 1.09 G/KG/D F AMPUTATE FACTOR 2024-12-28 07:18:50 0 F TBW ([place]) 2024-12-28 07:18:50 42.46 Liters F spKt/V 2024-12-28 07:18:50 1.43 F eKt/V 2024-12-28 07:18:50 1.21 F stdKt/V (DIAL) 2024-12-28 07:18:50 N/A F Std Renal KT/V 2024-12-28 07:18:50 N/A F stdKT/V Total 2024-12-28 07:18:50 N/A F BLOOD FLOW-QWB 2024-12-28 07:18:50 350 F TOTAL HOURS/WEEK DIALYSIS 2024-12-28 07:18:50 9 hrs F CURRENT KRU 2024-12-28 07:18:50 F Urea nitrogen [Mass/volume] in Serum or Plasma 2024-12-28 07:04:17 77 mg/dL F 9.0-23.0 Urea nitrogen [Mass/volume] in Serum or Plasma --post dialysis 2024-12-28 01:23:22 20 mg/dL F 9.0-23.0 Creatinine [Mass/volume] in Serum or Plasma 2024-12-13 22:44:20 5.9 mg/dL F 0.7-1.3 Creatinine [Mass/volume] in Serum or Plasma 2024-12-13 22:44:20 5.9 mg/dL F 0.7-1.3 URR% 2024-12-06 20:45:12 71 % F WEIGHT - PRE DAY 1 2024-12-06 20:45:12 85.2 kg F PRESCRIBED DAYS/WEEK 2024-12-06 20:45:12 3 Day/Wk F Dialyzer LOBITO 2024-12-06 20:45:12 1218 Calc F nPCR 2024-12-06 20:45:12 1.12 G/KG/D F TBW ([place]) 2024-12-06 20:45:12 42.86 Liters F spKt/V 2024-12-06 20:45:12 1.31 F stdKt/V (DIAL) 2024-12-06 20:45:12 N/A F stdKT/V Total 2024-12-06 20:45:12 N/A F DIALYZER FLOW-QD 2024-12-06 20:45:12 500 mL/min F PATIENT AGE 2024-12-06 20:45:12 79 Years F LENGTH OF DIALYSIS 2024-12-06 20:45:12 195 min F BSA JHONATHAN 2024-12-06 20:45:12 2.04 sq m F WEIGHT - POST DAY 1 2024-12-06 20:45:12 85.2 kg F HEIGHT IN INCHES 2024-12-06 20:45:12 70 Inches F WEIGHT (KG) 2024-12-06 20:45:12 85.5 kg F VT (KT/V TX VOL) 2024-12-06 20:45:12 37.4 L F Residual kt/v 2024-12-06 20:45:12 F KT/V PRESCRIBED 2024-12-06 20:45:12 1.44 F Total Kt/V 2024-12-06 20:45:12 1.31 F AMPUTATE FACTOR 2024-12-06 20:45:12 0 F VM (KT/V MEAN VOL) 2024-12-06 20:45:12 36.6 F eKt/V 2024-12-06 20:45:12 1.1 F Std Renal KT/V 2024-12-06 20:45:12 N/A F BLOOD FLOW-QWB 2024-12-06 20:45:12 349 F TOTAL HOURS/WEEK DIALYSIS 2024-12-06 20:45:12 9 hrs F CURRENT KRU 2024-12-06 20:45:12 F Urea nitrogen [Mass/volume] in Serum or Plasma 2024-12-06 20:43:19 82 mg/dL F 9.0-23.0 Urea nitrogen [Mass/volume] in Serum or Plasma --post dialysis 2024-12-06 20:28:23 24 mg/dL F 9.0-23.0 URR% 2024-12-01 13:02:28 F Unable to Calculate.,Recollec t - Shipping temp out of range,Recollect - Shipping temp out of range URR% 2024-12-01 13:02:28 F Unable to Calculate.,Recollec t - Shipping temp out of range Urea nitrogen [Mass/volume] in Serum or Plasma 2024-12-01 13:01:30 F Recollect - Shipping temp out of range,Recollect - Shipping temp out of range Urea nitrogen [Mass/volume] in Serum or Plasma 2024-12-01 13:01:30 F Recollect - Shipping temp out of range Urea nitrogen [Mass/volume] in Serum or Plasma --post dialysis 2024-12-01 12:55:00 F Recollect - Shipping temp out of range,Recollect - Shipping temp out of range Urea nitrogen [Mass/volume] in Serum or Plasma --post dialysis 2024-12-01 12:55:00 F Recollect - Shipping temp out of range PATIENT AGE 2024-11-29 16:55:33 79 Years F HEIGHT IN INCHES 2024-11-29 16:55:33 70 Inches F WEIGHT (KG) 2024-11-29 16:55:33 85.5 kg F AMPUTATE FACTOR 2024-11-29 16:55:33 0 F PATIENT AGE 2024-11-29 16:55:33 79 Years F HEIGHT IN INCHES 2024-11-29 16:55:33 70 Inches F AMPUTATE FACTOR 2024-11-29 16:55:33 0 F WEIGHT (KG) 2024-11-29 16:55:33 85.5 kg F Creatinine [Mass/volume] in Serum or Plasma 2024-11-09 03:00:16 5.71 mg/dL F 0.7-1.3 Creatinine [Mass/volume] in Serum or Plasma 2024-11-09 03:00:16 5.71 mg/dL F 0.7-1.3 URR% 2024-10-26 03:20:17 73 % F DIALYZER FLOW-QD 2024-10-26 03:20:17 800 mL/min F LENGTH OF DIALYSIS 2024-10-26 03:20:17 188 min F Dialyzer LOBITO 2024-10-26 03:20:17 1218 Calc F BSA JHONATHAN 2024-10-26 03:20:17 2.04 sq m F PATIENT AGE 2024-10-26 03:20:17 79 Years F WEIGHT - POST DAY 1 2024-10-26 03:20:17 85.5 kg F WEIGHT - PRE DAY 1 2024-10-26 03:20:17 86 kg F HEIGHT IN INCHES 2024-10-26 03:20:17 70 Inches F WEIGHT (KG) 2024-10-26 03:20:17 85.5 kg F VT (KT/V TX VOL) 2024-10-26 03:20:17 35.1 L F PRESCRIBED DAYS/WEEK 2024-10-26 03:20:17 3 Day/Wk F VM (KT/V MEAN VOL) 2024-10-26 03:20:17 36.3 F Residual kt/v 2024-10-26 03:20:17 F KT/V PRESCRIBED 2024-10-26 03:20:17 1.39 F Total Kt/V 2024-10-26 03:20:17 1.4 F nPCR 2024-10-26 03:20:17 1.18 G/KG/D F TBW ([place]) 2024-10-26 03:20:17 42.96 Liters F AMPUTATE FACTOR 2024-10-26 03:20:17 0 F spKt/V 2024-10-26 03:20:17 1.4 F eKt/V 2024-10-26 03:20:17 1.17 F stdKt/V (DIAL) 2024-10-26 03:20:17 N/A F Std Renal KT/V 2024-10-26 03:20:17 N/A F stdKT/V Total 2024-10-26 03:20:17 N/A F TOTAL HOURS/WEEK DIALYSIS 2024-10-26 03:20:17 9 hrs F BLOOD FLOW-QWB 2024-10-26 03:20:17 331 F CURRENT KRU 2024-10-26 03:20:17 F URR% 2024-10-26 03:20:17 73 % F Dialyzer LOBITO 2024-10-26 03:20:17 1218 Calc F BSA JHONATHAN 2024-10-26 03:20:17 2.04 sq m F WEIGHT - POST DAY 1 2024-10-26 03:20:17 85.5 kg F WEIGHT - PRE DAY 1 2024-10-26 03:20:17 86 kg F Residual kt/v 2024-10-26 03:20:17 F TBW ([place]) 2024-10-26 03:20:17 42.96 Liters F AMPUTATE FACTOR 2024-10-26 03:20:17 0 F Std Renal KT/V 2024-10-26 03:20:17 N/A F BLOOD FLOW-QWB 2024-10-26 03:20:17 331 F spKt/V 2024-10-26 03:20:17 1.4 F CURRENT KRU 2024-10-26 03:20:17 F LENGTH OF DIALYSIS 2024-10-26 03:20:17 188 min F PATIENT AGE 2024-10-26 03:20:17 79 Years F DIALYZER FLOW-QD 2024-10-26 03:20:17 800 mL/min F HEIGHT IN INCHES 2024-10-26 03:20:17 70 Inches F PRESCRIBED DAYS/WEEK 2024-10-26 03:20:17 3 Day/Wk F WEIGHT (KG) 2024-10-26 03:20:17 85.5 kg F VT (KT/V TX VOL) 2024-10-26 03:20:17 35.1 L F VM (KT/V MEAN VOL) 2024-10-26 03:20:17 36.3 F KT/V PRESCRIBED 2024-10-26 03:20:17 1.39 F Total Kt/V 2024-10-26 03:20:17 1.4 F eKt/V 2024-10-26 03:20:17 1.17 F nPCR 2024-10-26 03:20:17 1.18 G/KG/D F stdKt/V (DIAL) 2024-10-26 03:20:17 N/A F stdKT/V Total 2024-10-26 03:20:17 N/A F TOTAL HOURS/WEEK DIALYSIS 2024-10-26 03:20:17 9 hrs F Urea nitrogen [Mass/volume] in Serum or Plasma 2024-10-26 03:17:22 84 mg/dL F 9.0-23.0 Urea nitrogen [Mass/volume] in Serum or Plasma 2024-10-26 03:17:22 84 mg/dL F 9.0-23.0 Urea nitrogen [Mass/volume] in Serum or Plasma --post dialysis 2024-10-25 13:46:19 23 mg/dL F 9.0-23.0 Urea nitrogen [Mass/volume] in Serum or Plasma --post dialysis 2024-10-25 13:46:19 23 mg/dL F 9.0-23.0 DIALYZER FLOW-QD 2024-10-01 17:46:48 800 mL/min F URR% 2024-10-01 17:46:48 75 % F Dialyzer LOBITO 2024-10-01 17:46:48 1218 Calc F LENGTH OF DIALYSIS 2024-10-01 17:46:48 195 min F PATIENT AGE 2024-10-01 17:46:48 79 Years F BSA JHONATHAN 2024-10-01 17:46:48 2.04 sq m F WEIGHT - POST DAY 1 2024-10-01 17:46:48 85.1 kg F WEIGHT - PRE DAY 1 2024-10-01 17:46:48 85.1 kg F HEIGHT IN INCHES 2024-10-01 17:46:48 70 Inches F VT (KT/V TX VOL) 2024-10-01 17:46:48 34.7 L F PRESCRIBED DAYS/WEEK 2024-10-01 17:46:48 3 Day/Wk F VM (KT/V MEAN VOL) 2024-10-01 17:46:48 36.7 F WEIGHT (KG) 2024-10-01 17:46:48 85.5 kg F Residual kt/v 2024-10-01 17:46:48 F KT/V PRESCRIBED 2024-10-01 17:46:48 1.44 F Total Kt/V 2024-10-01 17:46:48 1.51 F nPCR 2024-10-01 17:46:48 1.42 G/KG/D F AMPUTATE FACTOR 2024-10-01 17:46:48 0 F spKt/V 2024-10-01 17:46:48 1.51 F TBW ([place]) 2024-10-01 17:46:48 42.83 Liters F eKt/V 2024-10-01 17:46:48 1.27 F stdKt/V (DIAL) 2024-10-01 17:46:48 N/A F TOTAL HOURS/WEEK DIALYSIS 2024-10-01 17:46:48 9 hrs F stdKT/V Total 2024-10-01 17:46:48 N/A F Std Renal KT/V 2024-10-01 17:46:48 N/A F BLOOD FLOW-QWB 2024-10-01 17:46:48 349 F CURRENT KRU 2024-10-01 17:46:48 F URR% 2024-10-01 17:46:48 75 % F Dialyzer LOBITO 2024-10-01 17:46:48 1218 Calc F DIALYZER FLOW-QD 2024-10-01 17:46:48 800 mL/min F LENGTH OF DIALYSIS 2024-10-01 17:46:48 195 min F PATIENT AGE 2024-10-01 17:46:48 79 Years F BSA JHONATHAN 2024-10-01 17:46:48 2.04 sq m F WEIGHT - POST DAY 1 2024-10-01 17:46:48 85.1 kg F WEIGHT - PRE DAY 1 2024-10-01 17:46:48 85.1 kg F WEIGHT (KG) 2024-10-01 17:46:48 85.5 kg F PRESCRIBED DAYS/WEEK 2024-10-01 17:46:48 3 Day/Wk F VT (KT/V TX VOL) 2024-10-01 17:46:48 34.7 L F VM (KT/V MEAN VOL) 2024-10-01 17:46:48 36.7 F HEIGHT IN INCHES 2024-10-01 17:46:48 70 Inches F Residual kt/v 2024-10-01 17:46:48 F KT/V PRESCRIBED 2024-10-01 17:46:48 1.44 F Total Kt/V 2024-10-01 17:46:48 1.51 F nPCR 2024-10-01 17:46:48 1.42 G/KG/D F AMPUTATE FACTOR 2024-10-01 17:46:48 0 F spKt/V 2024-10-01 17:46:48 1.51 F TBW ([place]) 2024-10-01 17:46:48 42.83 Liters F eKt/V 2024-10-01 17:46:48 1.27 F stdKt/V (DIAL) 2024-10-01 17:46:48 N/A F Std Renal KT/V 2024-10-01 17:46:48 N/A F TOTAL HOURS/WEEK DIALYSIS 2024-10-01 17:46:48 9 hrs F stdKT/V Total 2024-10-01 17:46:48 N/A F CURRENT KRU 2024-10-01 17:46:48 F BLOOD FLOW-QWB 2024-10-01 17:46:48 349 F Urea nitrogen [Mass/volume] in Serum or Plasma 2024-10-01 17:45:14 72 mg/dL F 9.0-23.0 Urea nitrogen [Mass/volume] in Serum or Plasma 2024-10-01 17:45:14 72 mg/dL F 9.0-23.0 Urea nitrogen [Mass/volume] in Serum or Plasma --post dialysis 2024-10-01 15:50:14 18 mg/dL F 9.0-23.0 Urea nitrogen [Mass/volume] in Serum or Plasma --post dialysis 2024-10-01 15:50:14 18 mg/dL F 9.0-23.0 URR% 2024-09-25 01:18:17 73 % F WEIGHT - PRE DAY 1 2024-09-25 01:18:17 84.5 kg F CURRENT KRU 2024-09-25 01:18:17 F KT/V PRESCRIBED 2024-09-25 01:18:17 1.45 F PATIENT AGE 2024-09-25 01:18:17 79 Years F TOTAL HOURS/WEEK DIALYSIS 2024-09-25 01:18:17 9 hrs F WEIGHT (KG) 2024-09-25 01:18:17 85.5 kg F TBW ([place]) 2024-09-25 01:18:17 42.66 Liters F Total Kt/V 2024-09-25 01:18:17 1.43 F nPCR 2024-09-25 01:18:17 1.4 G/KG/D F stdKt/V (DIAL) 2024-09-25 01:18:17 N/A F AMPUTATE FACTOR 2024-09-25 01:18:17 0 F DIALYZER FLOW-QD 2024-09-25 01:18:17 800 mL/min F stdKT/V Total 2024-09-25 01:18:17 N/A F VT (KT/V TX VOL) 2024-09-25 01:18:17 37.2 L F Dialyzer LOBITO 2024-09-25 01:18:17 1218 Calc F spKt/V 2024-09-25 01:18:17 1.43 F PRESCRIBED DAYS/WEEK 2024-09-25 01:18:17 3 Day/Wk F WEIGHT - POST DAY 1 2024-09-25 01:18:17 84.6 kg F BLOOD FLOW-QWB 2024-09-25 01:18:17 350 F BSA JHONATHAN 2024-09-25 01:18:17 2.04 sq m F Residual kt/v 2024-09-25 01:18:17 F LENGTH OF DIALYSIS 2024-09-25 01:18:17 196 min F VM (KT/V MEAN VOL) 2024-09-25 01:18:17 37.3 F Std Renal KT/V 2024-09-25 01:18:17 N/A F HEIGHT IN INCHES 2024-09-25 01:18:17 70 Inches F eKt/V 2024-09-25 01:18:17 1.2 F URR% 2024-09-25 01:18:17 73 % F DIALYZER FLOW-QD 2024-09-25 01:18:17 800 mL/min F Dialyzer LOBITO 2024-09-25 01:18:17 1218 Calc F LENGTH OF DIALYSIS 2024-09-25 01:18:17 196 min F PATIENT AGE 2024-09-25 01:18:17 79 Years F BSA JHONATHAN 2024-09-25 01:18:17 2.04 sq m F WEIGHT - POST DAY 1 2024-09-25 01:18:17 84.6 kg F WEIGHT - PRE DAY 1 2024-09-25 01:18:17 84.5 kg F WEIGHT (KG) 2024-09-25 01:18:17 85.5 kg F HEIGHT IN INCHES 2024-09-25 01:18:17 70 Inches F PRESCRIBED DAYS/WEEK 2024-09-25 01:18:17 3 Day/Wk F VT (KT/V TX VOL) 2024-09-25 01:18:17 37.2 L F VM (KT/V MEAN VOL) 2024-09-25 01:18:17 37.3 F Residual kt/v 2024-09-25 01:18:17 F KT/V PRESCRIBED 2024-09-25 01:18:17 1.45 F AMPUTATE FACTOR 2024-09-25 01:18:17 0 F nPCR 2024-09-25 01:18:17 1.4 G/KG/D F TBW ([place]) 2024-09-25 01:18:17 42.66 Liters F Total Kt/V 2024-09-25 01:18:17 1.43 F eKt/V 2024-09-25 01:18:17 1.2 F spKt/V 2024-09-25 01:18:17 1.43 F stdKt/V (DIAL) 2024-09-25 01:18:17 N/A F Std Renal KT/V 2024-09-25 01:18:17 N/A F stdKT/V Total 2024-09-25 01:18:17 N/A F TOTAL HOURS/WEEK DIALYSIS 2024-09-25 01:18:17 9 hrs F BLOOD FLOW-QWB 2024-09-25 01:18:17 350 F CURRENT KRU 2024-09-25 01:18:17 F URR% 2024-09-25 01:18:17 73 % F Dialyzer LOBITO 2024-09-25 01:18:17 1218 Calc F DIALYZER FLOW-QD 2024-09-25 01:18:17 800 mL/min F LENGTH OF DIALYSIS 2024-09-25 01:18:17 196 min F BSA JHONATHAN 2024-09-25 01:18:17 2.04 sq m F PATIENT AGE 2024-09-25 01:18:17 79 Years F WEIGHT - POST DAY 1 2024-09-25 01:18:17 84.6 kg F WEIGHT - PRE DAY 1 2024-09-25 01:18:17 84.5 kg F HEIGHT IN INCHES 2024-09-25 01:18:17 70 Inches F WEIGHT (KG) 2024-09-25 01:18:17 85.5 kg F PRESCRIBED DAYS/WEEK 2024-09-25 01:18:17 3 Day/Wk F Residual kt/v 2024-09-25 01:18:17 F VM (KT/V MEAN VOL) 2024-09-25 01:18:17 37.3 F KT/V PRESCRIBED 2024-09-25 01:18:17 1.45 F VT (KT/V TX VOL) 2024-09-25 01:18:17 37.2 L F Total Kt/V 2024-09-25 01:18:17 1.43 F nPCR 2024-09-25 01:18:17 1.4 G/KG/D F AMPUTATE FACTOR 2024-09-25 01:18:17 0 F TBW ([place]) 2024-09-25 01:18:17 42.66 Liters F spKt/V 2024-09-25 01:18:17 1.43 F eKt/V 2024-09-25 01:18:17 1.2 F stdKt/V (DIAL) 2024-09-25 01:18:17 N/A F stdKT/V Total 2024-09-25 01:18:17 N/A F Std Renal KT/V 2024-09-25 01:18:17 N/A F TOTAL HOURS/WEEK DIALYSIS 2024-09-25 01:18:17 9 hrs F BLOOD FLOW-QWB 2024-09-25 01:18:17 350 F CURRENT KRU 2024-09-25 01:18:17 F Creatinine [Mass/volume] in Serum or Plasma 2024-09-25 01:03:18 4.66 mg/dL F 0.7-1.3 Urea nitrogen [Mass/volume] in Serum or Plasma 2024-09-25 01:03:18 74 mg/dL F 9.0-23.0 Urea nitrogen [Mass/volume] in Serum or Plasma 2024-09-25 01:03:18 74 mg/dL F 9.0-23.0 Creatinine [Mass/volume] in Serum or Plasma 2024-09-25 01:03:18 4.66 mg/dL F 0.7-1.3 Urea nitrogen [Mass/volume] in Serum or Plasma 2024-09-25 01:03:18 74 mg/dL F 9.0-23.0 Creatinine [Mass/volume] in Serum or Plasma 2024-09-25 01:03:18 4.66 mg/dL F 0.7-1.3 Urea nitrogen [Mass/volume] in Serum or Plasma --post dialysis 2024-09-24 20:34:16 20 mg/dL F 9.0-23.0 Urea nitrogen [Mass/volume] in Serum or Plasma --post dialysis 2024-09-24 20:34:16 20 mg/dL F 9.0-23.0 Urea nitrogen [Mass/volume] in Serum or Plasma --post dialysis 2024-09-24 20:34:16 20 mg/dL F 9.0-23.0 Creatinine [Mass/volume] in Serum or Plasma 2024-09-23 05:40:24 4.75 mg/dL F 0.7-1.3 Creatinine [Mass/volume] in Serum or Plasma 2024-09-23 05:40:24 4.75 mg/dL F 0.7-1.3 Creatinine [Mass/volume] in Serum or Plasma 2024-09-23 05:40:24 4.75 mg/dL F 0.7-1.3 DIALYZER FLOW-QD 2024-09-12 16:43:44 800 mL/min F URR% 2024-09-12 16:43:44 71 % F Dialyzer LOBITO 2024-09-12 16:43:44 1218 Calc F LENGTH OF DIALYSIS 2024-09-12 16:43:44 195 min F BSA JHONATHAN 2024-09-12 16:43:44 2.04 sq m F WEIGHT - POST DAY 1 2024-09-12 16:43:44 85.2 kg F PATIENT AGE 2024-09-12 16:43:44 79 Years F WEIGHT - PRE DAY 1 2024-09-12 16:43:44 85.1 kg F HEIGHT IN INCHES 2024-09-12 16:43:44 70 Inches F WEIGHT (KG) 2024-09-12 16:43:44 85.5 kg F PRESCRIBED DAYS/WEEK 2024-09-12 16:43:44 3 Day/Wk F VT (KT/V TX VOL) 2024-09-12 16:43:44 38.4 L F KT/V PRESCRIBED 2024-09-12 16:43:44 1.44 F Residual kt/v 2024-09-12 16:43:44 F VM (KT/V MEAN VOL) 2024-09-12 16:43:44 37.3 F Total Kt/V 2024-09-12 16:43:44 1.33 F nPCR 2024-09-12 16:43:44 1.42 G/KG/D F AMPUTATE FACTOR 2024-09-12 16:43:44 0 F TBW (Mckee) 2024-09-12 16:43:44 42.86 Liters F spKt/V 2024-09-12 16:43:44 1.33 F stdKt/V (DIAL) 2024-09-12 16:43:44 N/A F eKt/V 2024-09-12 16:43:44 1.12 F stdKT/V Total 2024-09-12 16:43:44 N/A F Std Renal KT/V 2024-09-12 16:43:44 N/A F TOTAL HOURS/WEEK DIALYSIS 2024-09-12 16:43:44 9 hrs F BLOOD FLOW-QWB 2024-09-12 16:43:44 332 F CURRENT KRU 2024-09-12 16:43:44 F URR% 2024-09-12 16:43:44 71 % F DIALYZER FLOW-QD 2024-09-12 16:43:44 800 mL/min F Dialyzer LOBITO 2024-09-12 16:43:44 1218 Calc F BSA JHONATHAN 2024-09-12 16:43:44 2.04 sq m F PATIENT AGE 2024-09-12 16:43:44 79 Years F WEIGHT - POST DAY 1 2024-09-12 16:43:44 85.2 kg F WEIGHT - PRE DAY 1 2024-09-12 16:43:44 85.1 kg F HEIGHT IN INCHES 2024-09-12 16:43:44 70 Inches F LENGTH OF DIALYSIS 2024-09-12 16:43:44 195 min F WEIGHT (KG) 2024-09-12 16:43:44 85.5 kg F PRESCRIBED DAYS/WEEK 2024-09-12 16:43:44 3 Day/Wk F VT (KT/V TX VOL) 2024-09-12 16:43:44 38.4 L F VM (KT/V MEAN VOL) 2024-09-12 16:43:44 37.3 F Residual kt/v 2024-09-12 16:43:44 F KT/V PRESCRIBED 2024-09-12 16:43:44 1.44 F Total Kt/V 2024-09-12 16:43:44 1.33 F nPCR 2024-09-12 16:43:44 1.42 G/KG/D F TBW (Mckee) 2024-09-12 16:43:44 42.86 Liters F AMPUTATE FACTOR 2024-09-12 16:43:44 0 F spKt/V 2024-09-12 16:43:44 1.33 F stdKt/V (DIAL) 2024-09-12 16:43:44 N/A F Std Renal KT/V 2024-09-12 16:43:44 N/A F eKt/V 2024-09-12 16:43:44 1.12 F TOTAL HOURS/WEEK DIALYSIS 2024-09-12 16:43:44 9 hrs F stdKT/V Total 2024-09-12 16:43:44 N/A F BLOOD FLOW-QWB 2024-09-12 16:43:44 332 F CURRENT KRU 2024-09-12 16:43:44 F HEIGHT IN INCHES 2024-09-12 16:43:44 70 Inches F spKt/V 2024-09-12 16:43:44 1.33 F eKt/V 2024-09-12 16:43:44 1.12 F PATIENT AGE 2024-09-12 16:43:44 79 Years F URR% 2024-09-12 16:43:44 71 % F CURRENT KRU 2024-09-12 16:43:44 F stdKT/V Total 2024-09-12 16:43:44 N/A F Dialyzer LOBITO 2024-09-12 16:43:44 1218 Calc F Std Renal KT/V 2024-09-12 16:43:44 N/A F VM (KT/V MEAN VOL) 2024-09-12 16:43:44 37.3 F AMPUTATE FACTOR 2024-09-12 16:43:44 0 F Total Kt/V 2024-09-12 16:43:44 1.33 F VT (KT/V TX VOL) 2024-09-12 16:43:44 38.4 L F KT/V PRESCRIBED 2024-09-12 16:43:44 1.44 F WEIGHT - PRE DAY 1 2024-09-12 16:43:44 85.1 kg F Residual kt/v 2024-09-12 16:43:44 F LENGTH OF DIALYSIS 2024-09-12 16:43:44 195 min F stdKt/V (DIAL) 2024-09-12 16:43:44 N/A F nPCR 2024-09-12 16:43:44 1.42 G/KG/D F BLOOD FLOW-QWB 2024-09-12 16:43:44 332 F BSA JHONATHAN 2024-09-12 16:43:44 2.04 sq m F WEIGHT (KG) 2024-09-12 16:43:44 85.5 kg F WEIGHT - POST DAY 1 2024-09-12 16:43:44 85.2 kg F TOTAL HOURS/WEEK DIALYSIS 2024-09-12 16:43:44 9 hrs F PRESCRIBED DAYS/WEEK 2024-09-12 16:43:44 3 Day/Wk F DIALYZER FLOW-QD 2024-09-12 16:43:44 800 mL/min F TBW (Rafi) 2024-09-12 16:43:44 42.86 Liters F Urea nitrogen [Mass/volume] in Serum or Plasma --post dialysis 2024-09-10 19:47:00 23 mg/dL F 9-20 Urea nitrogen [Mass/volume] in Serum or Plasma --post dialysis 2024-09-10 19:47:00 23 mg/dL F 9-20 Urea nitrogen [Mass/volume] in Serum or Plasma --post dialysis 2024-09-10 19:47:00 23 mg/dL F 9-20 Urea nitrogen [Mass/volume] in Serum or Plasma 2024-09-10 19:47:00 78 mg/dL F 9-20 Urea nitrogen [Mass/volume] in Serum or Plasma 2024-09-10 19:47:00 78 mg/dL F 9-20 Urea nitrogen [Mass/volume] in Serum or Plasma 2024-09-10 19:47:00 78 mg/dL F 9-20 Creatinine [Mass/volume] in Serum or Plasma 2024-08-09 15:19:24 5.66 mg/dL F 0.7-1.3 Creatinine [Mass/volume] in Serum or Plasma 2024-08-09 15:19:24 5.66 mg/dL F 0.7-1.3 DIALYZER FLOW-QD 2024-08-02 13:36:55 800 mL/min F CURRENT KRU 2024-08-02 13:36:55 F TBW (Rafi) 2024-08-02 13:36:55 42.75 Liters F Std Renal KT/V 2024-08-02 13:36:55 N/A F LENGTH OF DIALYSIS 2024-08-02 13:36:55 191 min F PATIENT AGE 2024-08-02 13:36:55 78 Years F BLOOD FLOW-QWB 2024-08-02 13:36:55 349 F AMPUTATE FACTOR 2024-08-02 13:36:55 0 F Residual kt/v 2024-08-02 13:36:55 F stdKt/V (DIAL) 2024-08-02 13:36:55 N/A F Total Kt/V 2024-08-02 13:36:55 1.34 F HEIGHT IN INCHES 2024-08-02 13:36:55 70 Inches F VT (KT/V TX VOL) 2024-08-02 13:36:55 38.6 L F spKt/V 2024-08-02 13:36:55 1.34 F VM (KT/V MEAN VOL) 2024-08-02 13:36:55 37 F stdKT/V Total 2024-08-02 13:36:55 N/A F BSA JHONATHAN 2024-08-02 13:36:55 2.04 sq m F WEIGHT - PRE DAY 1 2024-08-02 13:36:55 84.5 kg F PRESCRIBED DAYS/WEEK 2024-08-02 13:36:55 3 Day/Wk F KT/V PRESCRIBED 2024-08-02 13:36:55 1.41 F TOTAL HOURS/WEEK DIALYSIS 2024-08-02 13:36:55 9 hrs F WEIGHT (KG) 2024-08-02 13:36:55 85.5 kg F URR% 2024-08-02 13:36:55 72 % F eKt/V 2024-08-02 13:36:55 1.13 F Dialyzer LOBITO 2024-08-02 13:36:55 1218 Calc F WEIGHT - POST DAY 1 2024-08-02 13:36:55 84.6 kg F nPCR 2024-08-02 13:36:55 1.03 G/KG/D F Urea nitrogen [Mass/volume] in Serum or Plasma 2024-08-02 13:35:14 74 mg/dL F 9.0-23.0 Urea nitrogen [Mass/volume] in Serum or Plasma --post dialysis 2024-08-02 13:18:23 21 mg/dL F 9.0-23.0 URR% 2024-07-26 15:19:13 67 % F DIALYZER FLOW-QD 2024-07-26 15:19:13 763 mL/min F Dialyzer LOBITO 2024-07-26 15:19:13 1218 Calc F PATIENT AGE 2024-07-26 15:19:13 78 Years F LENGTH OF DIALYSIS 2024-07-26 15:19:13 195 min F BSA JHONATHAN 2024-07-26 15:19:13 2.05 sq m F WEIGHT - POST DAY 1 2024-07-26 15:19:13 84.1 kg F WEIGHT - PRE DAY 1 2024-07-26 15:19:13 84.3 kg F HEIGHT IN INCHES 2024-07-26 15:19:13 70 Inches F WEIGHT (KG) 2024-07-26 15:19:13 86.5 kg F VM (KT/V MEAN VOL) 2024-07-26 15:19:13 36.5 F VT (KT/V TX VOL) 2024-07-26 15:19:13 36.8 L F PRESCRIBED DAYS/WEEK 2024-07-26 15:19:13 3 Day/Wk F Residual kt/v 2024-07-26 15:19:13 F KT/V PRESCRIBED 2024-07-26 15:19:13 1.43 F Total Kt/V 2024-07-26 15:19:13 1.18 F nPCR 2024-07-26 15:19:13 0.92 G/KG/D F AMPUTATE FACTOR 2024-07-26 15:19:13 0 F TBW ([facility]) 2024-07-26 15:19:13 42.58 Liters F spKt/V 2024-07-26 15:19:13 1.18 F eKt/V 2024-07-26 15:19:13 1 F stdKt/V (DIAL) 2024-07-26 15:19:13 N/A F Std Renal KT/V 2024-07-26 15:19:13 N/A F TOTAL HOURS/WEEK DIALYSIS 2024-07-26 15:19:13 9 hrs F stdKT/V Total 2024-07-26 15:19:13 N/A F BLOOD FLOW-QWB 2024-07-26 15:19:13 264 F CURRENT KRU 2024-07-26 15:19:13 F WEIGHT (KG) 2024-07-26 15:19:13 86.5 kg F LENGTH OF DIALYSIS 2024-07-26 15:19:13 195 min F TBW ([place]) 2024-07-26 15:19:13 42.58 Liters F WEIGHT - PRE DAY 1 2024-07-26 15:19:13 84.3 kg F TOTAL HOURS/WEEK DIALYSIS 2024-07-26 15:19:13 9 hrs F BLOOD FLOW-QWB 2024-07-26 15:19:13 264 F KT/V PRESCRIBED 2024-07-26 15:19:13 1.43 F WEIGHT - POST DAY 1 2024-07-26 15:19:13 84.1 kg F VM (KT/V MEAN VOL) 2024-07-26 15:19:13 36.5 F BSA JHONATHAN 2024-07-26 15:19:13 2.05 sq m F CURRENT KRU 2024-07-26 15:19:13 F DIALYZER FLOW-QD 2024-07-26 15:19:13 763 mL/min F Std Renal KT/V 2024-07-26 15:19:13 N/A F PRESCRIBED DAYS/WEEK 2024-07-26 15:19:13 3 Day/Wk F URR% 2024-07-26 15:19:13 67 % F stdKT/V Total 2024-07-26 15:19:13 N/A F eKt/V 2024-07-26 15:19:13 1 F spKt/V 2024-07-26 15:19:13 1.18 F Residual kt/v 2024-07-26 15:19:13 F stdKt/V (DIAL) 2024-07-26 15:19:13 N/A F AMPUTATE FACTOR 2024-07-26 15:19:13 0 F PATIENT AGE 2024-07-26 15:19:13 78 Years F HEIGHT IN INCHES 2024-07-26 15:19:13 70 Inches F VT (KT/V TX VOL) 2024-07-26 15:19:13 36.8 L F Total Kt/V 2024-07-26 15:19:13 1.18 F Dialyzer LOBITO 2024-07-26 15:19:13 1218 Calc F nPCR 2024-07-26 15:19:13 0.92 G/KG/D F Urea nitrogen [Mass/volume] in Serum or Plasma --post dialysis 2024-07-26 15:17:17 22 mg/dL F 9.0-23.0 Urea nitrogen [Mass/volume] in Serum or Plasma --post dialysis 2024-07-26 15:17:17 22 mg/dL F 9.0-23.0 Urea nitrogen [Mass/volume] in Serum or Plasma 2024-07-26 14:47:17 66 mg/dL F 9.0-23.0 Urea nitrogen [Mass/volume] in Serum or Plasma 2024-07-26 14:47:17 66 mg/dL F 9.0-23.0 Creatinine [Mass/volume] in Serum or Plasma 2024-07-12 15:15:19 6.32 mg/dL F 0.7-1.3 Total Kt/V 2024-06-01 07:34:17 1.31 F PATIENT AGE 2024-06-01 07:34:17 78 Years F eKt/V 2024-06-01 07:34:17 1.11 F Dialyzer LOBITO 2024-06-01 07:34:17 1218 Calc F TOTAL HOURS/WEEK DIALYSIS 2024-06-01 07:34:17 6 hrs F DIALYZER FLOW-QD 2024-06-01 07:34:17 800 mL/min F nPCR 2024-06-01 07:34:17 0.97 G/KG/D F KT/V PRESCRIBED 2024-06-01 07:34:17 1.41 F stdKt/V (DIAL) 2024-06-01 07:34:17 N/A F WEIGHT (KG) 2024-06-01 07:34:17 88 kg F BLOOD FLOW-QWB 2024-06-01 07:34:17 299 F AMPUTATE FACTOR 2024-06-01 07:34:17 0 F BSA JHONATHAN 2024-06-01 07:34:17 2.06 sq m F HEIGHT IN INCHES 2024-06-01 07:34:17 70 Inches F WEIGHT - PRE DAY 1 2024-06-01 07:34:17 86.3 kg F WEIGHT - POST DAY 1 2024-06-01 07:34:17 86.3 kg F URR% 2024-06-01 07:34:17 72 % F CURRENT KRU 2024-06-01 07:34:17 F VM (KT/V MEAN VOL) 2024-06-01 07:34:17 36.2 F Residual kt/v 2024-06-01 07:34:17 F LENGTH OF DIALYSIS 2024-06-01 07:34:17 194 min F PRESCRIBED DAYS/WEEK 2024-06-01 07:34:17 3 Day/Wk F VT (KT/V TX VOL) 2024-06-01 07:34:17 36.1 L F stdKT/V Total 2024-06-01 07:34:17 N/A F Std Renal KT/V 2024-06-01 07:34:17 N/A F spKt/V 2024-06-01 07:34:17 1.31 F TBW ([place]) 2024-06-01 07:34:17 43.32 Liters F Urea nitrogen [Mass/volume] in Serum or Plasma --post dialysis 2024-06-01 07:32:18 32 mg/dL F 9.0-23.0 Urea nitrogen [Mass/volume] in Serum or Plasma 2024-06-01 05:50:24 113 mg/dL F 9.0-23.0 Creatinine [Mass/volume] in Serum or Plasma 2023-10-15 15:37:40 5.09 mg/dL F 0.7-1.3 Creatinine [Mass/volume] in Serum or Plasma 2023-10-15 15:37:40 5.09 mg/dL F 0.7-1.3 Creatinine [Mass/volume] in Serum or Plasma 2023-02-10 22:26:35 6.3 mg/dL F 0.7-1.3 Creatinine [Mass/volume] in Serum or Plasma 2023-02-10 22:26:35 6.3 mg/dL F 0.7-1.3 Creatinine [Mass/volume] in Serum or Plasma 2023-01-14 02:33:39 6.11 mg/dL F 0.7-1.3 Creatinine [Mass/volume] in Serum or Plasma 2022-12-09 19:03:18 5.56 mg/dL F 0.7-1.3 Creatinine [Mass/volume] in Serum or Plasma 2022-11-11 18:05:21 5.88 mg/dL F 0.7-1.3 URR% 2022-10-08 04:00:21 75 % F DIALYZER FLOW-QD 2022-10-08 04:00:21 800 mL/min F Dialyzer LOBITO 2022-10-08 04:00:21 1218 Calc F LENGTH OF DIALYSIS 2022-10-08 04:00:21 180 min F PATIENT AGE 2022-10-08 04:00:21 77 Years F WEIGHT - POST DAY 1 2022-10-08 04:00:21 78.2 kg F WEIGHT - PRE DAY 1 2022-10-08 04:00:21 77.9 kg F WEIGHT (KG) 2022-10-08 04:00:21 78 kg F PRESCRIBED DAYS/WEEK 2022-10-08 04:00:21 3 Day/Wk F VT (KT/V TX VOL) 2022-10-08 04:00:21 33.2 L F HEIGHT IN INCHES 2022-10-08 04:00:21 70 Inches F VM (KT/V MEAN VOL) 2022-10-08 04:00:21 35.1 F Residual kt/v 2022-10-08 04:00:21 F KT/V PRESCRIBED 2022-10-08 04:00:21 1.41 F Total Kt/V 2022-10-08 04:00:21 1.47 F nPCR 2022-10-08 04:00:21 1.08 G/KG/D F AMPUTATE FACTOR 2022-10-08 04:00:21 0 F spKt/V 2022-10-08 04:00:21 1.47 F TBW ([place]) 2022-10-08 04:00:21 40.7 Liters F eKt/V 2022-10-08 04:00:21 1.22 F stdKt/V (DIAL) 2022-10-08 04:00:21 N/A F Std Renal KT/V 2022-10-08 04:00:21 N/A F stdKT/V Total 2022-10-08 04:00:21 N/A F TOTAL HOURS/WEEK DIALYSIS 2022-10-08 04:00:21 8 F BLOOD FLOW-QWB 2022-10-08 04:00:21 350 F WEIGHT (KG) 2022-10-08 04:00:21 78 kg F stdKt/V (DIAL) 2022-10-08 04:00:21 N/A F spKt/V 2022-10-08 04:00:21 1.47 F BLOOD FLOW-QWB 2022-10-08 04:00:21 350 F TOTAL HOURS/WEEK DIALYSIS 2022-10-08 04:00:21 8 F stdKT/V Total 2022-10-08 04:00:21 N/A F Dialyzer LOBITO 2022-10-08 04:00:21 1218 Calc F DIALYZER FLOW-QD 2022-10-08 04:00:21 800 mL/min F Total Kt/V 2022-10-08 04:00:21 1.47 F WEIGHT - PRE DAY 1 2022-10-08 04:00:21 77.9 kg F VM (KT/V MEAN VOL) 2022-10-08 04:00:21 35.1 F PRESCRIBED DAYS/WEEK 2022-10-08 04:00:21 3 Day/Wk F VT (KT/V TX VOL) 2022-10-08 04:00:21 33.2 L F LENGTH OF DIALYSIS 2022-10-08 04:00:21 180 min F AMPUTATE FACTOR 2022-10-08 04:00:21 0 F KT/V PRESCRIBED 2022-10-08 04:00:21 1.41 F TBW ([place]) 2022-10-08 04:00:21 40.7 Liters F WEIGHT - POST DAY 1 2022-10-08 04:00:21 78.2 kg F Std Renal KT/V 2022-10-08 04:00:21 N/A F Residual kt/v 2022-10-08 04:00:21 F URR% 2022-10-08 04:00:21 75 % F eKt/V 2022-10-08 04:00:21 1.22 F nPCR 2022-10-08 04:00:21 1.08 G/KG/D F PATIENT AGE 2022-10-08 04:00:21 77 Years F HEIGHT IN INCHES 2022-10-08 04:00:21 70 Inches F BSA JHONATHAN 2022-10-08 04:00:21 1.96 sq m F [facility] 2022-10-08 04:00:21 F BSA JHONATHAN 2022-10-08 04:00:21 1.96 sq m F [facility] 2022-10-08 04:00:21 F Urea nitrogen [Mass/volume] in Serum or Plasma --post dialysis 2022-10-08 03:54:21 19 mg/dL F 9.0-23.0 Urea nitrogen [Mass/volume] in Serum or Plasma --post dialysis 2022-10-08 03:54:21 19 mg/dL F 9.0-23.0 Urea nitrogen [Mass/volume] in Serum or Plasma 2022-10-07 23:11:22 76 mg/dL F 9.0-23.0 Urea nitrogen [Mass/volume] in Serum or Plasma 2022-10-07 23:11:22 76 mg/dL F 9.0-23.0 Creatinine [Mass/volume] in Serum or Plasma 2022-10-07 23:11:22 5.6 mg/dL F 0.7-1.3 Creatinine [Mass/volume] in Serum or Plasma 2022-10-07 23:11:22 5.6 mg/dL F 0.7-1.3 Creatinine [Mass/volume] in Serum or Plasma 2022-09-09 17:25:14 5.53 mg/dL F 0.7-1.3 Creatinine [Mass/volume] in Serum or Plasma 2022-09-09 17:25:14 5.53 mg/dL F 0.7-1.3 Creatinine [Mass/volume] in Serum or Plasma 2022-07-15 14:33:59 6 mg/dL F 0.7-1.3 KT/V PRESCRIBED 2022-06-07 17:35:54 1.08 F spKt/V 2022-06-07 17:35:54 1.09 F Dialyzer LOBITO 2022-06-07 17:35:54 1218 Calc F WEIGHT - POST DAY 1 2022-06-07 17:35:54 80.1 kg F TOTAL HOURS/WEEK DIALYSIS 2022-06-07 17:35:54 2 F WEIGHT (KG) 2022-06-07 17:35:54 81 kg F Total Kt/V 2022-06-07 17:35:54 1.09 F AMPUTATE FACTOR 2022-06-07 17:35:54 0 F LENGTH OF DIALYSIS 2022-06-07 17:35:54 151 min F nPCR 2022-06-07 17:35:54 0.56 G/KG/D F stdKt/V (DIAL) 2022-06-07 17:35:54 N/A F stdKT/V Total 2022-06-07 17:35:54 N/A F HEIGHT IN INCHES 2022-06-07 17:35:54 70 Inches F PRESCRIBED DAYS/WEEK 2022-06-07 17:35:54 3 Day/Wk F PATIENT AGE 2022-06-07 17:35:54 76 Years F DIALYZER FLOW-QD 2022-06-07 17:35:54 500 mL/min F WEIGHT - PRE DAY 1 2022-06-07 17:35:54 81.1 kg F URR% 2022-06-07 17:35:54 64 % F BLOOD FLOW-QWB 2022-06-07 17:35:54 350 F URR% 2022-06-07 17:35:54 64 % F Dialyzer LOBITO 2022-06-07 17:35:54 1218 Calc F LENGTH OF DIALYSIS 2022-06-07 17:35:54 151 min F DIALYZER FLOW-QD 2022-06-07 17:35:54 500 mL/min F PATIENT AGE 2022-06-07 17:35:54 76 Years F WEIGHT - POST DAY 1 2022-06-07 17:35:54 80.1 kg F WEIGHT - PRE DAY 1 2022-06-07 17:35:54 81.1 kg F HEIGHT IN INCHES 2022-06-07 17:35:54 70 Inches F WEIGHT (KG) 2022-06-07 17:35:54 81 kg F PRESCRIBED DAYS/WEEK 2022-06-07 17:35:54 3 Day/Wk F KT/V PRESCRIBED 2022-06-07 17:35:54 1.08 F Total Kt/V 2022-06-07 17:35:54 1.09 F nPCR 2022-06-07 17:35:54 0.56 G/KG/D F AMPUTATE FACTOR 2022-06-07 17:35:54 0 F spKt/V 2022-06-07 17:35:54 1.09 F stdKT/V Total 2022-06-07 17:35:54 N/A F stdKt/V (DIAL) 2022-06-07 17:35:54 N/A F TOTAL HOURS/WEEK DIALYSIS 2022-06-07 17:35:54 2 F BLOOD FLOW-QWB 2022-06-07 17:35:54 350 F Std Renal KT/V 2022-06-07 17:35:54 N/A F VM (KT/V MEAN VOL) 2022-06-07 17:35:54 34.8 F BSA JHONATHAN 2022-06-07 17:35:54 1.99 sq m F eKt/V 2022-06-07 17:35:54 0.89 F CURRENT KRU 2022-06-07 17:35:54 F TBW ([place]) 2022-06-07 17:35:54 41.43 Liters F Residual kt/v 2022-06-07 17:35:54 F VT (KT/V TX VOL) 2022-06-07 17:35:54 34.8 L F BSA JHONATHAN 2022-06-07 17:35:54 1.99 sq m F VT (KT/V TX VOL) 2022-06-07 17:35:54 34.8 L F VM (KT/V MEAN VOL) 2022-06-07 17:35:54 34.8 F Residual kt/v 2022-06-07 17:35:54 F TBW ([place]) 2022-06-07 17:35:54 41.43 Liters F eKt/V 2022-06-07 17:35:54 0.89 F Std Renal KT/V 2022-06-07 17:35:54 N/A F CURRENT KRU 2022-06-07 17:35:54 F Creatinine [Mass/volume] in Serum or Plasma 2022-06-07 17:33:43 7.23 mg/dL F 0.7-1.3 Urea nitrogen [Mass/volume] in Serum or Plasma 2022-06-07 17:33:43 98 mg/dL F 9.0-23.0 Urea nitrogen [Mass/volume] in Serum or Plasma 2022-06-07 17:33:43 98 mg/dL F 9.0-23.0 Creatinine [Mass/volume] in Serum or Plasma 2022-06-07 17:33:43 7.23 mg/dL F 0.7-1.3 Urea nitrogen [Mass/volume] in Serum or Plasma --post dialysis 2022-06-07 17:27:42 35 mg/dL F 9.0-23.0 Urea nitrogen [Mass/volume] in Serum or Plasma --post dialysis 2022-06-07 17:27:42 35 mg/dL F 9.0-23.0 nPCR stdKt/V (DIAL) Residual kt/v VT (KT/V TX VOL) BSA JHONATHAN CURRENT KRU spKt/V KT/V PRESCRIBED TBW ([place]) Total Kt/V eKt/V stdKT/V Total Std Renal KT/V VM (KT/V MEAN VOL) DIALYZER FLOW-QD Dialyzer LOBITO LENGTH OF DIALYSIS WEIGHT - PRE DAY 1 WEIGHT - POST DAY 1 PRESCRIBED DAYS/WEEK TOTAL HOURS/WEEK DIALYSIS BLOOD FLOW-QWB LENGTH OF DIALYSIS WEIGHT - PRE DAY 1 VT (KT/V TX VOL) TBW ([place]) Total Kt/V spKt/V eKt/V stdKT/V Total CURRENT KRU DIALYZER FLOW-QD Dialyzer LOBITO BSA JHONATHAN PRESCRIBED DAYS/WEEK WEIGHT - POST DAY 1 VM (KT/V MEAN VOL) Residual kt/v KT/V PRESCRIBED nPCR Std Renal KT/V TOTAL HOURS/WEEK DIALYSIS stdKt/V (DIAL) BLOOD FLOW-QWB Total Kt/V PATIENT AGE DIALYZER FLOW-QD BLOOD FLOW-QWB VT (KT/V TX VOL) Urea nitrogen [Mass/volume] in Serum or Plasma VM (KT/V MEAN VOL) CURRENT KRU PRESCRIBED DAYS/WEEK Dialyzer LOBITO KT/V PRESCRIBED eKt/V WEIGHT (KG) Std Renal KT/V nPCR BSA JHONATHAN spKt/V TBW ([place]) WEIGHT - POST DAY 1 LENGTH OF DIALYSIS WEIGHT - PRE DAY 1 URR% HEIGHT IN INCHES TOTAL HOURS/WEEK DIALYSIS Residual kt/v AMPUTATE FACTOR stdKt/V (DIAL) stdKT/V Total Urea nitrogen [Mass/volume] in Serum or Plasma URR% DIALYZER FLOW-QD Dialyzer LOBITO LENGTH OF DIALYSIS PATIENT AGE BSA JHONATHAN WEIGHT - POST DAY 1 WEIGHT - PRE DAY 1 HEIGHT IN INCHES PRESCRIBED DAYS/WEEK VT (KT/V TX VOL) WEIGHT (KG) VM (KT/V MEAN VOL) Residual kt/v KT/V PRESCRIBED Total Kt/V nPCR TBW ([place]) AMPUTATE FACTOR spKt/V eKt/V stdKt/V (DIAL) Std Renal KT/V TOTAL HOURS/WEEK DIALYSIS stdKT/V Total BLOOD FLOW-QWB CURRENT KRU DIALYZER FLOW-QD BSA JHONATHAN HEIGHT IN INCHES PRESCRIBED DAYS/WEEK VT (KT/V TX VOL) VM (KT/V MEAN VOL) KT/V PRESCRIBED Total Kt/V nPCR TBW ([place]) eKt/V TOTAL HOURS/WEEK DIALYSIS stdKT/V Total Urea nitrogen [Mass/volume] in Serum or Plasma URR% Dialyzer LOBITO LENGTH OF DIALYSIS PATIENT AGE WEIGHT - POST DAY 1 WEIGHT - PRE DAY 1 WEIGHT (KG) Residual kt/v AMPUTATE FACTOR spKt/V stdKt/V (DIAL) Std Renal KT/V BLOOD FLOW-QWB CURRENT KRU Anemia Description Draw Date Result/Unit Status Ref Range Result Comments HCT CALC HGBX3 2025-02-07 14:19:00 30 % F 42.0-52.0 MCHC [Mass/volume] by Automated count 2025-02-07 14:18:15 30.7 g/dL F 29.6-35.3 Erythrocytes [#/volume] in Blood by Automated count 2025-02-07 14:18:14 3.51 x 10^6 cells/uL F 4.6-6.2 Hematocrit [Volume Fraction] of Blood by Automated count 2025-02-07 14:18:14 32.7 % F 41.0-53.0 Hemoglobin [Mass/volume] in Blood 2025-02-07 14:18:14 10 g/dL F 14.0-18.0 MCH [Entitic mass] by Automated count 2025-02-07 14:18:14 28.6 pg F 25.9-34.2 MCV [Entitic volume] by Automated count 2025-02-07 14:18:14 93.2 fL F 80.0-100.0 Platelets [#/volume] in Blood by Automated count 2025-02-07 14:18:14 146 x 10^3 cells/uL F 140.0-450.0 Erythrocyte distribution width [Ratio] by Automated count 2025-02-07 14:18:12 16.7 % F 11.0-15.0 HCT CALC HGBX3 2025-01-24 20:05:16 31.8 % F 42.0-52.0 Hemoglobin [Mass/volume] in Blood 2025-01-24 20:04:14 10.6 g/dL F 14.0-18.0 IRON SATURATION 2025-01-11 03:10:45 15 % F 21.0-49.0 TIBC 2025-01-11 03:10:45 204 ug/dL F 250.0-425.0 Iron [Mass/volume] in Serum or Plasma 2025-01-11 03:06:57 30 ug/dL F 65.0-175.0 Iron binding capacity.unsaturated [Mass/volume] in Serum or Plasma 2025-01-11 03:06:57 174 ug/dL F 75.0-360.0 HCT CALC HGBX3 2025-01-10 20:54:23 28.2 % F 42.0-52.0 Erythrocyte distribution width [Ratio] by Automated count 2025-01-10 20:53:17 17.4 % F 11.0-15.0 Erythrocytes [#/volume] in Blood by Automated count 2025-01-10 20:53:17 3.31 x 10^6 cells/uL F 4.6-6.2 Hematocrit [Volume Fraction] of Blood by Automated count 2025-01-10 20:53:17 31.4 % F 41.0-53.0 Hemoglobin [Mass/volume] in Blood 2025-01-10 20:53:17 9.4 g/dL F 14.0-18.0 MCV [Entitic volume] by Automated count 2025-01-10 20:53:17 95 fL F 80.0-100.0 MCHC [Mass/volume] by Automated count 2025-01-10 20:53:17 29.8 g/dL F 29.6-35.3 Platelets [#/volume] in Blood by Automated count 2025-01-10 20:53:17 149 x 10^3 cells/uL F 140.0-450.0 MCH [Entitic mass] by Automated count 2025-01-10 20:53:17 28.3 pg F 25.9-34.2 Ferritin [Mass/volume] in Serum or Plasma 2025-01-10 16:50:24 652 ng/mL F 11.0-307.0 HCT CALC HGBX3 2024-12-28 00:58:17 28.2 % F 42.0-52.0 Hemoglobin [Mass/volume] in Blood 2024-12-28 00:57:18 9.4 g/dL F 14.0-18.0 IRON SATURATION 2024-12-14 07:33:09 16 % F 21.0-49.0 TIBC 2024-12-14 07:33:09 207 ug/dL F 250.0-425.0 IRON SATURATION 2024-12-14 07:33:09 16 % F 21.0-49.0 TIBC 2024-12-14 07:33:09 207 ug/dL F 250.0-425.0 Iron [Mass/volume] in Serum or Plasma 2024-12-14 07:13:35 34 ug/dL F 65.0-175.0 Iron binding capacity.unsaturated [Mass/volume] in Serum or Plasma 2024-12-14 07:13:35 173 ug/dL F 75.0-360.0 Iron [Mass/volume] in Serum or Plasma 2024-12-14 07:13:35 34 ug/dL F 65.0-175.0 Iron binding capacity.unsaturated [Mass/volume] in Serum or Plasma 2024-12-14 07:13:35 173 ug/dL F 75.0-360.0 Ferritin [Mass/volume] in Serum or Plasma 2024-12-14 03:02:20 972 ng/mL F 22.0-322.0 Ferritin [Mass/volume] in Serum or Plasma 2024-12-14 03:02:20 972 ng/mL F 22.0-322.0 HCT CALC HGBX3 2024-12-14 00:19:58 27.3 % F 42.0-52.0 HCT CALC HGBX3 2024-12-14 00:19:58 27.3 % F 42.0-52.0 Platelets [#/volume] in Blood by Automated count 2024-12-14 00:19:11 159 x 10^3 cells/uL F 140.0-450.0 Erythrocytes [#/volume] in Blood by Automated count 2024-12-14 00:19:11 3.1 x 10^6 cells/uL F 4.6-6.2 MCHC [Mass/volume] by Automated count 2024-12-14 00:19:11 31.5 g/dL F 29.6-35.3 Erythrocyte distribution width [Ratio] by Automated count 2024-12-14 00:19:11 15.5 % F 11.0-15.0 Hematocrit [Volume Fraction] of Blood by Automated count 2024-12-14 00:19:11 29.1 % F 41.0-53.0 MCV [Entitic volume] by Automated count 2024-12-14 00:19:11 93.8 fL F 80.0-100.0 MCH [Entitic mass] by Automated count 2024-12-14 00:19:11 29.5 pg F 25.9-34.2 Hemoglobin [Mass/volume] in Blood 2024-12-14 00:19:11 9.1 g/dL F 14.0-18.0 Erythrocyte distribution width [Ratio] by Automated count 2024-12-14 00:19:11 15.5 % F 11.0-15.0 Hematocrit [Volume Fraction] of Blood by Automated count 2024-12-14 00:19:11 29.1 % F 41.0-53.0 Erythrocytes [#/volume] in Blood by Automated count 2024-12-14 00:19:11 3.1 x 10^6 cells/uL F 4.6-6.2 Hemoglobin [Mass/volume] in Blood 2024-12-14 00:19:11 9.1 g/dL F 14.0-18.0 MCV [Entitic volume] by Automated count 2024-12-14 00:19:11 93.8 fL F 80.0-100.0 MCH [Entitic mass] by Automated count 2024-12-14 00:19:11 29.5 pg F 25.9-34.2 MCHC [Mass/volume] by Automated count 2024-12-14 00:19:11 31.5 g/dL F 29.6-35.3 Platelets [#/volume] in Blood by Automated count 2024-12-14 00:19:11 159 x 10^3 cells/uL F 140.0-450.0 HCT CALC HGBX3 2024-12-01 13:02:28 see comments F 42.0-52.0 Unable to Calculate. HCT CALC HGBX3 2024-12-01 13:02:28 see comments F 42.0-52.0 Unable to Calculate. Hemoglobin [Mass/volume] in Blood 2024-12-01 13:01:30 F Recollect - Shipping temp out of range,Recollect - Shipping temp out of range Hemoglobin [Mass/volume] in Blood 2024-12-01 13:01:30 F Recollect - Shipping temp out of range IRON SATURATION 2024-11-09 07:02:37 21 % F 21.0-49.0 TIBC 2024-11-09 07:02:37 201 ug/dL F 250.0-425.0 IRON SATURATION 2024-11-09 07:02:37 21 % F 21.0-49.0 TIBC 2024-11-09 07:02:37 201 ug/dL F 250.0-425.0 Iron [Mass/volume] in Serum or Plasma 2024-11-09 06:20:08 42 ug/dL F 65.0-175.0 Iron binding capacity.unsaturated [Mass/volume] in Serum or Plasma 2024-11-09 06:20:08 159 ug/dL F 75.0-360.0 Iron [Mass/volume] in Serum or Plasma 2024-11-09 06:20:08 42 ug/dL F 65.0-175.0 Iron binding capacity.unsaturated [Mass/volume] in Serum or Plasma 2024-11-09 06:20:08 159 ug/dL F 75.0-360.0 HCT CALC HGBX3 2024-11-09 00:16:08 28.5 % F 42.0-52.0 HCT CALC HGBX3 2024-11-09 00:16:08 28.5 % F 42.0-52.0 Erythrocyte distribution width [Ratio] by Automated count 2024-11-09 00:15:12 16.7 % F 11.0-15.0 Erythrocytes [#/volume] in Blood by Automated count 2024-11-09 00:15:12 3.15 x 10^6 cells/uL F 4.6-6.2 Hemoglobin [Mass/volume] in Blood 2024-11-09 00:15:12 9.5 g/dL F 14.0-18.0 MCV [Entitic volume] by Automated count 2024-11-09 00:15:12 94.6 fL F 80.0-100.0 MCHC [Mass/volume] by Automated count 2024-11-09 00:15:12 32 g/dL F 29.6-35.3 Hematocrit [Volume Fraction] of Blood by Automated count 2024-11-09 00:15:12 29.8 % F 41.0-53.0 MCH [Entitic mass] by Automated count 2024-11-09 00:15:12 30.3 pg F 25.9-34.2 Platelets [#/volume] in Blood by Automated count 2024-11-09 00:15:12 130 x 10^3 cells/uL F 140.0-450.0 Erythrocyte distribution width [Ratio] by Automated count 2024-11-09 00:15:12 16.7 % F 11.0-15.0 Hematocrit [Volume Fraction] of Blood by Automated count 2024-11-09 00:15:12 29.8 % F 41.0-53.0 Hemoglobin [Mass/volume] in Blood 2024-11-09 00:15:12 9.5 g/dL F 14.0-18.0 MCH [Entitic mass] by Automated count 2024-11-09 00:15:12 30.3 pg F 25.9-34.2 MCHC [Mass/volume] by Automated count 2024-11-09 00:15:12 32 g/dL F 29.6-35.3 Erythrocytes [#/volume] in Blood by Automated count 2024-11-09 00:15:12 3.15 x 10^6 cells/uL F 4.6-6.2 MCV [Entitic volume] by Automated count 2024-11-09 00:15:12 94.6 fL F 80.0-100.0 Platelets [#/volume] in Blood by Automated count 2024-11-09 00:15:12 130 x 10^3 cells/uL F 140.0-450.0 Ferritin [Mass/volume] in Serum or Plasma 2024-11-08 23:39:20 1281 ng/mL F 22.0-322.0 Ferritin [Mass/volume] in Serum or Plasma 2024-11-08 23:39:20 1281 ng/mL F 22.0-322.0 HCT CALC HGBX3 2024-10-25 23:23:05 28.5 % F 42.0-52.0 HCT CALC HGBX3 2024-10-25 23:23:05 28.5 % F 42.0-52.0 Hemoglobin [Mass/volume] in Blood 2024-10-25 23:22:18 9.5 g/dL F 14.0-18.0 Hemoglobin [Mass/volume] in Blood 2024-10-25 23:22:18 9.5 g/dL F 14.0-18.0 HCT CALC HGBX3 2024-10-13 17:45:02 29.4 % F 42.0-52.0 HCT CALC HGBX3 2024-10-13 17:45:02 29.4 % F 42.0-52.0 Hemoglobin [Mass/volume] in Blood 2024-10-13 17:44:21 9.8 g/dL F 14.0-18.0 Hemoglobin [Mass/volume] in Blood 2024-10-13 17:44:21 9.8 g/dL F 14.0-18.0 Ferritin [Mass/volume] in Serum or Plasma 2024-10-05 19:48:50 1188 ng/mL F 22.0-322.0 Ferritin [Mass/volume] in Serum or Plasma 2024-10-05 19:48:50 1188 ng/mL F 22.0-322.0 ABSOLUTE RETIC COUNT 2024-09-29 14:34:10 0.055 x 10^6 cells/uL F 0.035-0.127 Reticulocytes/100 erythrocytes in Blood by Automated count 2024-09-29 14:34:10 1.53 % F 0.7-2.5 ABSOLUTE RETIC COUNT 2024-09-29 14:34:10 0.055 x 10^6 cells/uL F 0.035-0.127 Reticulocytes/100 erythrocytes in Blood by Automated count 2024-09-29 14:34:10 1.53 % F 0.7-2.5 Ferritin [Mass/volume] in Serum or Plasma 2024-09-26 17:31:57 1573 ng/mL F 22.0-322.0 Ferritin [Mass/volume] in Serum or Plasma 2024-09-26 17:31:57 1573 ng/mL F 22.0-322.0 Ferritin [Mass/volume] in Serum or Plasma 2024-09-26 17:31:57 1573 ng/mL F 22.0-322.0 IRON SATURATION 2024-09-25 06:52:41 14 % F 21.0-49.0 TIBC 2024-09-25 06:52:41 214 ug/dL F 250.0-425.0 IRON SATURATION 2024-09-25 06:52:41 14 % F 21.0-49.0 TIBC 2024-09-25 06:52:41 214 ug/dL F 250.0-425.0 IRON SATURATION 2024-09-25 06:52:41 14 % F 21.0-49.0 TIBC 2024-09-25 06:52:41 214 ug/dL F 250.0-425.0 Iron binding capacity.unsaturated [Mass/volume] in Serum or Plasma 2024-09-25 06:01:22 184 ug/dL F 75.0-360.0 Iron [Mass/volume] in Serum or Plasma 2024-09-25 06:01:22 30 ug/dL F 65.0-175.0 Iron [Mass/volume] in Serum or Plasma 2024-09-25 06:01:22 30 ug/dL F 65.0-175.0 Iron binding capacity.unsaturated [Mass/volume] in Serum or Plasma 2024-09-25 06:01:22 184 ug/dL F 75.0-360.0 Iron [Mass/volume] in Serum or Plasma 2024-09-25 06:01:22 30 ug/dL F 65.0-175.0 Iron binding capacity.unsaturated [Mass/volume] in Serum or Plasma 2024-09-25 06:01:22 184 ug/dL F 75.0-360.0 HCT CALC HGBX3 2024-09-25 00:14:08 30.9 % F 42.0-52.0 HCT CALC HGBX3 2024-09-25 00:14:08 30.9 % F 42.0-52.0 HCT CALC HGBX3 2024-09-25 00:14:08 30.9 % F 42.0-52.0 MCHC [Mass/volume] by Automated count 2024-09-25 00:13:19 30.3 g/dL F 29.6-35.3 Hematocrit [Volume Fraction] of Blood by Automated count 2024-09-25 00:13:19 34.1 % F 41.0-53.0 Erythrocytes [#/volume] in Blood by Automated count 2024-09-25 00:13:19 3.61 x 10^6 cells/uL F 4.6-6.2 MCH [Entitic mass] by Automated count 2024-09-25 00:13:19 28.7 pg F 25.9-34.2 Erythrocyte distribution width [Ratio] by Automated count 2024-09-25 00:13:19 17.5 % F 11.0-15.0 Hemoglobin [Mass/volume] in Blood 2024-09-25 00:13:19 10.3 g/dL F 14.0-18.0 Platelets [#/volume] in Blood by Automated count 2024-09-25 00:13:19 104 x 10^3 cells/uL F 140.0-450.0 MCV [Entitic volume] by Automated count 2024-09-25 00:13:19 94.6 fL F 80.0-100.0 Erythrocyte distribution width [Ratio] by Automated count 2024-09-25 00:13:19 17.5 % F 11.0-15.0 Erythrocytes [#/volume] in Blood by Automated count 2024-09-25 00:13:19 3.61 x 10^6 cells/uL F 4.6-6.2 Hematocrit [Volume Fraction] of Blood by Automated count 2024-09-25 00:13:19 34.1 % F 41.0-53.0 Hemoglobin [Mass/volume] in Blood 2024-09-25 00:13:19 10.3 g/dL F 14.0-18.0 MCV [Entitic volume] by Automated count 2024-09-25 00:13:19 94.6 fL F 80.0-100.0 MCH [Entitic mass] by Automated count 2024-09-25 00:13:19 28.7 pg F 25.9-34.2 MCHC [Mass/volume] by Automated count 2024-09-25 00:13:19 30.3 g/dL F 29.6-35.3 Platelets [#/volume] in Blood by Automated count 2024-09-25 00:13:19 104 x 10^3 cells/uL F 140.0-450.0 Erythrocyte distribution width [Ratio] by Automated count 2024-09-25 00:13:19 17.5 % F 11.0-15.0 Hematocrit [Volume Fraction] of Blood by Automated count 2024-09-25 00:13:19 34.1 % F 41.0-53.0 Erythrocytes [#/volume] in Blood by Automated count 2024-09-25 00:13:19 3.61 x 10^6 cells/uL F 4.6-6.2 MCV [Entitic volume] by Automated count 2024-09-25 00:13:19 94.6 fL F 80.0-100.0 Hemoglobin [Mass/volume] in Blood 2024-09-25 00:13:19 10.3 g/dL F 14.0-18.0 MCH [Entitic mass] by Automated count 2024-09-25 00:13:19 28.7 pg F 25.9-34.2 Platelets [#/volume] in Blood by Automated count 2024-09-25 00:13:19 104 x 10^3 cells/uL F 140.0-450.0 MCHC [Mass/volume] by Automated count 2024-09-25 00:13:19 30.3 g/dL F 29.6-35.3 IRON SATURATION 2024-09-23 07:09:01 17 % F 21.0-49.0 TIBC 2024-09-23 07:09:01 209 ug/dL F 250.0-425.0 IRON SATURATION 2024-09-23 07:09:01 17 % F 21.0-49.0 TIBC 2024-09-23 07:09:01 209 ug/dL F 250.0-425.0 TIBC 2024-09-23 07:09:01 209 ug/dL F 250.0-425.0 IRON SATURATION 2024-09-23 07:09:01 17 % F 21.0-49.0 Iron [Mass/volume] in Serum or Plasma 2024-09-23 06:11:36 35 ug/dL F 65.0-175.0 Iron binding capacity.unsaturated [Mass/volume] in Serum or Plasma 2024-09-23 06:11:36 174 ug/dL F 75.0-360.0 Iron [Mass/volume] in Serum or Plasma 2024-09-23 06:11:36 35 ug/dL F 65.0-175.0 Iron binding capacity.unsaturated [Mass/volume] in Serum or Plasma 2024-09-23 06:11:36 174 ug/dL F 75.0-360.0 Iron [Mass/volume] in Serum or Plasma 2024-09-23 06:11:36 35 ug/dL F 65.0-175.0 Iron binding capacity.unsaturated [Mass/volume] in Serum or Plasma 2024-09-23 06:11:36 174 ug/dL F 75.0-360.0 HCT CALC HGBX3 2024-09-22 19:55:12 33 % F 42.0-52.0 HCT CALC HGBX3 2024-09-22 19:55:12 33 % F 42.0-52.0 HCT CALC HGBX3 2024-09-22 19:55:12 33 % F 42.0-52.0 Hemoglobin [Mass/volume] in Blood 2024-09-22 19:52:21 11 g/dL F 14.0-18.0 Erythrocytes [#/volume] in Blood by Automated count 2024-09-22 19:52:21 3.69 x 10^6 cells/uL F 4.6-6.2 Hematocrit [Volume Fraction] of Blood by Automated count 2024-09-22 19:52:21 33.4 % F 41.0-53.0 Erythrocytes [#/volume] in Blood by Automated count 2024-09-22 19:52:21 3.69 x 10^6 cells/uL F 4.6-6.2 Hematocrit [Volume Fraction] of Blood by Automated count 2024-09-22 19:52:21 33.4 % F 41.0-53.0 Hemoglobin [Mass/volume] in Blood 2024-09-22 19:52:21 11 g/dL F 14.0-18.0 Erythrocytes [#/volume] in Blood by Automated count 2024-09-22 19:52:21 3.69 x 10^6 cells/uL F 4.6-6.2 Hematocrit [Volume Fraction] of Blood by Automated count 2024-09-22 19:52:21 33.4 % F 41.0-53.0 Hemoglobin [Mass/volume] in Blood 2024-09-22 19:52:21 11 g/dL F 14.0-18.0 Erythrocyte distribution width [Ratio] by Automated count 2024-09-22 19:52:18 17.9 % F 11.0-15.0 Platelets [#/volume] in Blood by Automated count 2024-09-22 19:52:18 151 x 10^3 cells/uL F 140.0-450.0 MCH [Entitic mass] by Automated count 2024-09-22 19:52:18 29.9 pg F 25.9-34.2 MCHC [Mass/volume] by Automated count 2024-09-22 19:52:18 33 g/dL F 29.6-35.3 MCV [Entitic volume] by Automated count 2024-09-22 19:52:18 90.5 fL F 80.0-100.0 Erythrocyte distribution width [Ratio] by Automated count 2024-09-22 19:52:18 17.9 % F 11.0-15.0 MCV [Entitic volume] by Automated count 2024-09-22 19:52:18 90.5 fL F 80.0-100.0 MCH [Entitic mass] by Automated count 2024-09-22 19:52:18 29.9 pg F 25.9-34.2 Platelets [#/volume] in Blood by Automated count 2024-09-22 19:52:18 151 x 10^3 cells/uL F 140.0-450.0 MCHC [Mass/volume] by Automated count 2024-09-22 19:52:18 33 g/dL F 29.6-35.3 Erythrocyte distribution width [Ratio] by Automated count 2024-09-22 19:52:18 17.9 % F 11.0-15.0 MCH [Entitic mass] by Automated count 2024-09-22 19:52:18 29.9 pg F 25.9-34.2 MCV [Entitic volume] by Automated count 2024-09-22 19:52:18 90.5 fL F 80.0-100.0 MCHC [Mass/volume] by Automated count 2024-09-22 19:52:18 33 g/dL F 29.6-35.3 Platelets [#/volume] in Blood by Automated count 2024-09-22 19:52:18 151 x 10^3 cells/uL F 140.0-450.0 Ferritin [Mass/volume] in Serum or Plasma 2024-09-22 11:31:29 F CANCELED - TEST CANCELED Ferritin [Mass/volume] in Serum or Plasma 2024-09-22 11:31:29 F CANCELED - TEST CANCELED,CANCELE D - TEST CANCELED Ferritin [Mass/volume] in Serum or Plasma 2024-09-22 11:31:29 F CANCELED - TEST CANCELED HCT CALC HGBX3 2024-08-09 14:08:01 32.7 % F 42.0-52.0 HCT CALC HGBX3 2024-08-09 14:08:01 32.7 % F 42.0-52.0 Erythrocytes [#/volume] in Blood by Automated count 2024-08-09 14:07:16 3.86 x 10^6 cells/uL F 4.6-6.2 Hemoglobin [Mass/volume] in Blood 2024-08-09 14:07:16 10.9 g/dL F 14.0-18.0 Platelets [#/volume] in Blood by Automated count 2024-08-09 14:07:16 156 x 10^3 cells/uL F 140.0-450.0 Hemoglobin [Mass/volume] in Blood 2024-08-09 14:07:16 10.9 g/dL F 14.0-18.0 Platelets [#/volume] in Blood by Automated count 2024-08-09 14:07:16 156 x 10^3 cells/uL F 140.0-450.0 Erythrocytes [#/volume] in Blood by Automated count 2024-08-09 14:07:16 3.86 x 10^6 cells/uL F 4.6-6.2 Erythrocyte distribution width [Ratio] by Automated count 2024-08-09 14:07:15 17.2 % F 11.0-15.0 Hematocrit [Volume Fraction] of Blood by Automated count 2024-08-09 14:07:15 35.2 % F 41.0-53.0 MCV [Entitic volume] by Automated count 2024-08-09 14:07:15 91.3 fL F 80.0-100.0 MCH [Entitic mass] by Automated count 2024-08-09 14:07:15 28.3 pg F 25.9-34.2 MCHC [Mass/volume] by Automated count 2024-08-09 14:07:15 31 g/dL F 29.6-35.3 Erythrocyte distribution width [Ratio] by Automated count 2024-08-09 14:07:15 17.2 % F 11.0-15.0 MCH [Entitic mass] by Automated count 2024-08-09 14:07:15 28.3 pg F 25.9-34.2 MCHC [Mass/volume] by Automated count 2024-08-09 14:07:15 31 g/dL F 29.6-35.3 Hematocrit [Volume Fraction] of Blood by Automated count 2024-08-09 14:07:15 35.2 % F 41.0-53.0 MCV [Entitic volume] by Automated count 2024-08-09 14:07:15 91.3 fL F 80.0-100.0 HCT CALC HGBX3 2024-07-26 16:15:18 32.4 % F 42.0-52.0 HCT CALC HGBX3 2024-07-26 16:15:18 32.4 % F 42.0-52.0 Hemoglobin [Mass/volume] in Blood 2024-07-26 16:14:14 10.8 g/dL F 14.0-18.0 Hemoglobin [Mass/volume] in Blood 2024-07-26 16:14:14 10.8 g/dL F 14.0-18.0 IRON SATURATION 2024-07-13 08:59:20 15 % F 21.0-49.0 TIBC 2024-07-13 08:59:20 195 ug/dL F 250.0-425.0 Iron [Mass/volume] in Serum or Plasma 2024-07-13 06:53:33 29 ug/dL F 65.0-175.0 Iron binding capacity.unsaturated [Mass/volume] in Serum or Plasma 2024-07-13 06:53:33 166 ug/dL F 75.0-360.0 Ferritin [Mass/volume] in Serum or Plasma 2024-07-12 21:43:14 691 ng/mL F 22.0-322.0 HCT CALC HGBX3 2024-07-12 16:47:52 33.9 % F 42.0-52.0 Platelets [#/volume] in Blood by Automated count 2024-07-12 16:47:18 188 x 10^3 cells/uL F 140.0-450.0 MCH [Entitic mass] by Automated count 2024-07-12 16:47:18 29.5 pg F 25.9-34.2 Hematocrit [Volume Fraction] of Blood by Automated count 2024-07-12 16:47:18 35.4 % F 41.0-53.0 MCV [Entitic volume] by Automated count 2024-07-12 16:47:18 92.4 fL F 80.0-100.0 Erythrocyte distribution width [Ratio] by Automated count 2024-07-12 16:47:17 16.9 % F 11.0-15.0 Hemoglobin [Mass/volume] in Blood 2024-07-12 16:47:17 11.3 g/dL F 14.0-18.0 MCHC [Mass/volume] by Automated count 2024-07-12 16:47:17 31.9 g/dL F 29.6-35.3 Erythrocytes [#/volume] in Blood by Automated count 2024-07-12 16:47:17 3.83 x 10^6 cells/uL F 4.6-6.2 HCT CALC HGBX3 2024-06-01 03:42:49 29.7 % F 42.0-52.0 Hemoglobin [Mass/volume] in Blood 2024-06-01 03:41:16 9.9 g/dL F 14.0-18.0 IRON SATURATION 2023-10-16 06:25:49 20 % F 21.0-49.0 TIBC 2023-10-16 06:25:49 205 ug/dL F 250.0-425.0 TIBC 2023-10-16 06:25:49 205 ug/dL F 250.0-425.0 IRON SATURATION 2023-10-16 06:25:49 20 % F 21.0-49.0 Iron [Mass/volume] in Serum or Plasma 2023-10-16 06:25:18 40 ug/dL F 65.0-175.0 Iron binding capacity.unsaturated [Mass/volume] in Serum or Plasma 2023-10-16 06:25:18 165 ug/dL F 75.0-360.0 Iron [Mass/volume] in Serum or Plasma 2023-10-16 06:25:18 40 ug/dL F 65.0-175.0 Iron binding capacity.unsaturated [Mass/volume] in Serum or Plasma 2023-10-16 06:25:18 165 ug/dL F 75.0-360.0 HCT CALC HGBX3 2023-10-16 03:51:26 34.2 % F 42.0-52.0 HCT CALC HGBX3 2023-10-16 03:51:26 34.2 % F 42.0-52.0 Erythrocyte distribution width [Ratio] by Automated count 2023-10-16 03:50:24 15.6 % F 11.0-15.0 Erythrocytes [#/volume] in Blood by Automated count 2023-10-16 03:50:24 3.57 x 10'6 cells/uL F 4.6-6.2 Hematocrit [Volume Fraction] of Blood by Automated count 2023-10-16 03:50:24 35.7 % F 41.0-53.0 MCV [Entitic volume] by Automated count 2023-10-16 03:50:24 99.9 fL F 80.0-100.0 Hemoglobin [Mass/volume] in Blood 2023-10-16 03:50:24 11.4 g/dL F 14.0-18.0 MCH [Entitic mass] by Automated count 2023-10-16 03:50:24 32 pg F 25.9-34.2 MCHC [Mass/volume] by Automated count 2023-10-16 03:50:24 32.1 g/dL F 29.6-35.3 Platelets [#/volume] in Blood by Automated count 2023-10-16 03:50:24 145 x 10^3 cells/uL F 140.0-450.0 Erythrocyte distribution width [Ratio] by Automated count 2023-10-16 03:50:24 15.6 % F 11.0-15.0 Platelets [#/volume] in Blood by Automated count 2023-10-16 03:50:24 145 x 10^3 cells/uL F 140.0-450.0 Hemoglobin [Mass/volume] in Blood 2023-10-16 03:50:24 11.4 g/dL F 14.0-18.0 MCH [Entitic mass] by Automated count 2023-10-16 03:50:24 32 pg F 25.9-34.2 MCHC [Mass/volume] by Automated count 2023-10-16 03:50:24 32.1 g/dL F 29.6-35.3 Hematocrit [Volume Fraction] of Blood by Automated count 2023-10-16 03:50:24 35.7 % F 41.0-53.0 Erythrocytes [#/volume] in Blood by Automated count 2023-10-16 03:50:24 3.57 x 10'6 cells/uL F 4.6-6.2 MCV [Entitic volume] by Automated count 2023-10-16 03:50:24 99.9 fL F 80.0-100.0 Ferritin [Mass/volume] in Serum or Plasma 2023-10-16 03:45:21 1537 ng/mL F 22.0-322.0 Ferritin [Mass/volume] in Serum or Plasma 2023-10-16 03:45:21 1537 ng/mL F 22.0-322.0 HCT CALC HGBX3 2023-06-05 19:45:30 36.3 % F 42.0-52.0 Hemoglobin [Mass/volume] in Blood 2023-06-05 19:44:37 12.1 g/dL F 14.0-18.0 IRON SATURATION 2023-02-11 07:08:41 29 % F 21.0-49.0 TIBC 2023-02-11 07:08:41 207 ug/dL F 250.0-425.0 IRON SATURATION 2023-02-11 07:08:41 29 % F 21.0-49.0 TIBC 2023-02-11 07:08:41 207 ug/dL F 250.0-425.0 Iron [Mass/volume] in Serum or Plasma 2023-02-11 07:04:23 59 ug/dL F 65.0-175.0 Iron binding capacity.unsaturated [Mass/volume] in Serum or Plasma 2023-02-11 07:04:23 148 ug/dL F 75.0-360.0 Iron [Mass/volume] in Serum or Plasma 2023-02-11 07:04:23 59 ug/dL F 65.0-175.0 Iron binding capacity.unsaturated [Mass/volume] in Serum or Plasma 2023-02-11 07:04:23 148 ug/dL F 75.0-360.0 Ferritin [Mass/volume] in Serum or Plasma 2023-02-11 04:10:54 1078 ng/mL F 22.0-322.0 Ferritin [Mass/volume] in Serum or Plasma 2023-02-11 04:10:54 1078 ng/mL F 22.0-322.0 HCT CALC HGBX3 2023-02-11 00:29:13 26.7 % F 42.0-52.0 HCT CALC HGBX3 2023-02-11 00:29:13 26.7 % F 42.0-52.0 Erythrocyte distribution width [Ratio] by Automated count 2023-02-11 00:28:38 16.8 % F 11.0-15.0 Erythrocytes [#/volume] in Blood by Automated count 2023-02-11 00:28:38 2.89 x 10'6 cells/uL F 4.6-6.2 Hematocrit [Volume Fraction] of Blood by Automated count 2023-02-11 00:28:38 27.5 % F 41.0-53.0 Hemoglobin [Mass/volume] in Blood 2023-02-11 00:28:38 8.9 g/dL F 14.0-18.0 MCV [Entitic volume] by Automated count 2023-02-11 00:28:38 95.3 fL F 80.0-100.0 MCH [Entitic mass] by Automated count 2023-02-11 00:28:38 30.7 pg F 25.9-34.2 MCHC [Mass/volume] by Automated count 2023-02-11 00:28:38 32.2 g/dL F 29.6-35.3 Platelets [#/volume] in Blood by Automated count 2023-02-11 00:28:38 123 x 10^3 cells/uL F 140.0-450.0 Erythrocyte distribution width [Ratio] by Automated count 2023-02-11 00:28:38 16.8 % F 11.0-15.0 Hemoglobin [Mass/volume] in Blood 2023-02-11 00:28:38 8.9 g/dL F 14.0-18.0 Platelets [#/volume] in Blood by Automated count 2023-02-11 00:28:38 123 x 10^3 cells/uL F 140.0-450.0 MCH [Entitic mass] by Automated count 2023-02-11 00:28:38 30.7 pg F 25.9-34.2 MCHC [Mass/volume] by Automated count 2023-02-11 00:28:38 32.2 g/dL F 29.6-35.3 Erythrocytes [#/volume] in Blood by Automated count 2023-02-11 00:28:38 2.89 x 10'6 cells/uL F 4.6-6.2 Hematocrit [Volume Fraction] of Blood by Automated count 2023-02-11 00:28:38 27.5 % F 41.0-53.0 MCV [Entitic volume] by Automated count 2023-02-11 00:28:38 95.3 fL F 80.0-100.0 IRON SATURATION 2023-01-14 06:32:12 44 % F 21.0-49.0 TIBC 2023-01-14 06:32:12 199 ug/dL F 250.0-425.0 Iron [Mass/volume] in Serum or Plasma 2023-01-14 06:29:09 87 ug/dL F 65.0-175.0 Iron binding capacity.unsaturated [Mass/volume] in Serum or Plasma 2023-01-14 06:29:09 112 ug/dL F 75.0-360.0 Ferritin [Mass/volume] in Serum or Plasma 2023-01-14 05:10:43 1212 ng/mL F 22.0-322.0 HCT CALC HGBX3 2023-01-13 21:01:44 29.1 % F 42.0-52.0 Erythrocyte distribution width [Ratio] by Automated count 2023-01-13 21:01:38 15.7 % F 11.0-15.0 Hemoglobin [Mass/volume] in Blood 2023-01-13 21:01:36 9.7 g/dL F 14.0-18.0 Platelets [#/volume] in Blood by Automated count 2023-01-13 21:01:36 124 x 10^3 cells/uL F 140.0-450.0 MCH [Entitic mass] by Automated count 2023-01-13 21:01:36 29.9 pg F 25.9-34.2 MCHC [Mass/volume] by Automated count 2023-01-13 21:01:36 31.4 g/dL F 29.6-35.3 Erythrocytes [#/volume] in Blood by Automated count 2023-01-13 21:01:36 3.23 x 10'6 cells/uL F 4.6-6.2 Hematocrit [Volume Fraction] of Blood by Automated count 2023-01-13 21:01:36 30.7 % F 41.0-53.0 MCV [Entitic volume] by Automated count 2023-01-13 21:01:36 95.3 fL F 80.0-100.0 HCT CALC HGBX3 2022-12-10 01:20:28 36.6 % F 42.0-52.0 Erythrocyte distribution width [Ratio] by Automated count 2022-12-10 01:20:22 16 % F 11.0-15.0 Hemoglobin [Mass/volume] in Blood 2022-12-10 01:20:22 12.2 g/dL F 14.0-18.0 Platelets [#/volume] in Blood by Automated count 2022-12-10 01:20:22 117 x 10^3 cells/uL F 140.0-450.0 MCHC [Mass/volume] by Automated count 2022-12-10 01:20:22 32 g/dL F 29.6-35.3 MCH [Entitic mass] by Automated count 2022-12-10 01:20:22 30.2 pg F 25.9-34.2 Erythrocytes [#/volume] in Blood by Automated count 2022-12-10 01:20:22 4.06 x 10'6 cells/uL F 4.6-6.2 Hematocrit [Volume Fraction] of Blood by Automated count 2022-12-10 01:20:22 38.3 % F 41.0-53.0 MCV [Entitic volume] by Automated count 2022-12-10 01:20:22 94.3 fL F 80.0-100.0 HCT CALC HGBX3 2022-11-11 15:23:59 37.5 % F 42.0-52.0 Erythrocyte distribution width [Ratio] by Automated count 2022-11-11 15:23:24 16.7 % F 11.0-15.0 Platelets [#/volume] in Blood by Automated count 2022-11-11 15:23:24 103 x 10^3 cells/uL F 140.0-450.0 Hemoglobin [Mass/volume] in Blood 2022-11-11 15:23:24 12.5 g/dL F 14.0-18.0 MCH [Entitic mass] by Automated count 2022-11-11 15:23:24 30 pg F 25.9-34.2 MCHC [Mass/volume] by Automated count 2022-11-11 15:23:24 31.4 g/dL F 29.6-35.3 Erythrocytes [#/volume] in Blood by Automated count 2022-11-11 15:23:24 4.17 x 10'6 cells/uL F 4.6-6.2 Hematocrit [Volume Fraction] of Blood by Automated count 2022-11-11 15:23:24 39.8 % F 41.0-53.0 MCV [Entitic volume] by Automated count 2022-11-11 15:23:24 95.7 fL F 80.0-100.0 IRON SATURATION 2022-10-08 06:25:31 20 % F 21.0-49.0 TIBC 2022-10-08 06:25:31 210 ug/dL F 250.0-425.0 IRON SATURATION 2022-10-08 06:25:31 20 % F 21.0-49.0 TIBC 2022-10-08 06:25:31 210 ug/dL F 250.0-425.0 Iron [Mass/volume] in Serum or Plasma 2022-10-08 06:20:44 43 ug/dL F 65.0-175.0 Iron binding capacity.unsaturated [Mass/volume] in Serum or Plasma 2022-10-08 06:20:44 167 ug/dL F 75.0-360.0 Iron [Mass/volume] in Serum or Plasma 2022-10-08 06:20:44 43 ug/dL F 65.0-175.0 Iron binding capacity.unsaturated [Mass/volume] in Serum or Plasma 2022-10-08 06:20:44 167 ug/dL F 75.0-360.0 HCT CALC HGBX3 2022-10-08 05:17:43 34.5 % F 42.0-52.0 HCT CALC HGBX3 2022-10-08 05:17:43 34.5 % F 42.0-52.0 MCH [Entitic mass] by Automated count 2022-10-08 05:17:16 29.5 pg F 27.0-31.0 MCHC [Mass/volume] by Automated count 2022-10-08 05:17:16 30.2 g/dL F 32.0-36.0 Erythrocytes [#/volume] in Blood by Automated count 2022-10-08 05:17:16 3.9 x 10'6 cells/uL F 4.6-6.2 Hematocrit [Volume Fraction] of Blood by Automated count 2022-10-08 05:17:16 38 % F 42.0-52.0 MCV [Entitic volume] by Automated count 2022-10-08 05:17:16 97.5 fL F 80.0-100.0 Erythrocyte distribution width [Ratio] by Automated count 2022-10-08 05:17:16 15.6 % F 11.0-15.0 Erythrocytes [#/volume] in Blood by Automated count 2022-10-08 05:17:16 3.9 x 10'6 cells/uL F 4.6-6.2 Hemoglobin [Mass/volume] in Blood 2022-10-08 05:17:16 11.5 g/dL F 14.0-18.0 Hematocrit [Volume Fraction] of Blood by Automated count 2022-10-08 05:17:16 38 % F 42.0-52.0 MCV [Entitic volume] by Automated count 2022-10-08 05:17:16 97.5 fL F 80.0-100.0 MCH [Entitic mass] by Automated count 2022-10-08 05:17:16 29.5 pg F 27.0-31.0 Platelets [#/volume] in Blood by Automated count 2022-10-08 05:17:16 103 x 10^3 cells/uL F 150.0-400.0 MCHC [Mass/volume] by Automated count 2022-10-08 05:17:16 30.2 g/dL F 32.0-36.0 Erythrocyte distribution width [Ratio] by Automated count 2022-10-08 05:17:16 15.6 % F 11.0-15.0 Hemoglobin [Mass/volume] in Blood 2022-10-08 05:17:16 11.5 g/dL F 14.0-18.0 Platelets [#/volume] in Blood by Automated count 2022-10-08 05:17:16 103 x 10^3 cells/uL F 150.0-400.0 Ferritin [Mass/volume] in Serum or Plasma 2022-10-07 19:08:10 861 ng/mL F 22.0-322.0 Ferritin [Mass/volume] in Serum or Plasma 2022-10-07 19:08:10 861 ng/mL F 22.0-322.0 HCT CALC HGBX3 2022-09-09 17:20:04 36.6 % F 42.0-52.0 HCT CALC HGBX3 2022-09-09 17:20:04 36.6 % F 42.0-52.0 MCHC [Mass/volume] by Automated count 2022-09-09 17:19:20 31.4 g/dL F 32.0-36.0 MCHC [Mass/volume] by Automated count 2022-09-09 17:19:20 31.4 g/dL F 32.0-36.0 Erythrocyte distribution width [Ratio] by Automated count 2022-09-09 17:19:19 16.2 % F 11.0-15.0 Erythrocytes [#/volume] in Blood by Automated count 2022-09-09 17:19:19 4.01 x 10'6 cells/uL F 4.6-6.2 Hematocrit [Volume Fraction] of Blood by Automated count 2022-09-09 17:19:19 38.9 % F 42.0-52.0 Hemoglobin [Mass/volume] in Blood 2022-09-09 17:19:19 12.2 g/dL F 14.0-18.0 MCV [Entitic volume] by Automated count 2022-09-09 17:19:19 97 fL F 80.0-100.0 MCH [Entitic mass] by Automated count 2022-09-09 17:19:19 30.5 pg F 27.0-31.0 Platelets [#/volume] in Blood by Automated count 2022-09-09 17:19:19 142 x 10^3 cells/uL F 150.0-400.0 Erythrocyte distribution width [Ratio] by Automated count 2022-09-09 17:19:19 16.2 % F 11.0-15.0 Platelets [#/volume] in Blood by Automated count 2022-09-09 17:19:19 142 x 10^3 cells/uL F 150.0-400.0 Hemoglobin [Mass/volume] in Blood 2022-09-09 17:19:19 12.2 g/dL F 14.0-18.0 MCH [Entitic mass] by Automated count 2022-09-09 17:19:19 30.5 pg F 27.0-31.0 Erythrocytes [#/volume] in Blood by Automated count 2022-09-09 17:19:19 4.01 x 10'6 cells/uL F 4.6-6.2 Hematocrit [Volume Fraction] of Blood by Automated count 2022-09-09 17:19:19 38.9 % F 42.0-52.0 MCV [Entitic volume] by Automated count 2022-09-09 17:19:19 97 fL F 80.0-100.0 IRON SATURATION 2022-07-16 06:45:17 17 % F 21.0-49.0 TIBC 2022-07-16 06:45:17 237 ug/dL F 250.0-425.0 Iron [Mass/volume] in Serum or Plasma 2022-07-16 06:43:33 40 ug/dL F 65.0-175.0 Iron binding capacity.unsaturated [Mass/volume] in Serum or Plasma 2022-07-16 06:43:33 197 ug/dL F 75.0-360.0 HCT CALC HGBX3 2022-07-15 17:18:05 31.8 % F 42.0-52.0 ABSOLUTE RETIC COUNT 2022-07-15 17:18:00 0.073 x 10'6 cells/uL F 0.03-0.08 Reticulocytes/100 erythrocytes in Blood by Automated count 2022-07-15 17:18:00 2.12 % F 0.8-2.1 Platelets [#/volume] in Blood by Automated count 2022-07-15 17:18:00 163 x 10^3 cells/uL F 150.0-400.0 MCH [Entitic mass] by Automated count 2022-07-15 17:18:00 30.6 pg F 27.0-31.0 Hematocrit [Volume Fraction] of Blood by Automated count 2022-07-15 17:18:00 33.8 % F 42.0-52.0 MCV [Entitic volume] by Automated count 2022-07-15 17:18:00 97.8 fL F 80.0-100.0 Erythrocyte distribution width [Ratio] by Automated count 2022-07-15 17:17:58 17.4 % F 11.0-15.0 Hemoglobin [Mass/volume] in Blood 2022-07-15 17:17:58 10.6 g/dL F 14.0-18.0 MCHC [Mass/volume] by Automated count 2022-07-15 17:17:58 31.3 g/dL F 32.0-36.0 Erythrocytes [#/volume] in Blood by Automated count 2022-07-15 17:17:58 3.46 x 10'6 cells/uL F 4.6-6.2 Ferritin [Mass/volume] in Serum or Plasma 2022-07-15 16:24:03 598 ng/mL F 22.0-322.0 IRON SATURATION 2022-06-08 02:44:13 32 % F 21.0-49.0 TIBC 2022-06-08 02:44:13 198 ug/dL F 250.0-425.0 HCT CALC HGBX3 2022-06-08 02:44:13 24.3 % F 42.0-52.0 IRON SATURATION 2022-06-08 02:44:13 32 % F 21.0-49.0 HCT CALC HGBX3 2022-06-08 02:44:13 24.3 % F 42.0-52.0 TIBC 2022-06-08 02:44:13 198 ug/dL F 250.0-425.0 Reticulocytes/100 erythrocytes in Blood by Automated count 2022-06-08 02:43:47 1.07 % F 0.8-2.1 Erythrocyte distribution width [Ratio] by Automated count 2022-06-08 02:43:47 15.6 % F 11.0-15.0 Platelets [#/volume] in Blood by Automated count 2022-06-08 02:43:47 174 x 10^3 cells/uL F 150.0-400.0 Hemoglobin [Mass/volume] in Blood 2022-06-08 02:43:47 8.1 g/dL F 14.0-18.0 MCH [Entitic mass] by Automated count 2022-06-08 02:43:47 30.7 pg F 27.0-31.0 MCHC [Mass/volume] by Automated count 2022-06-08 02:43:47 32.2 g/dL F 32.0-36.0 Erythrocytes [#/volume] in Blood by Automated count 2022-06-08 02:43:47 2.62 x 10'6 cells/uL F 4.6-6.2 Hematocrit [Volume Fraction] of Blood by Automated count 2022-06-08 02:43:47 25 % F 42.0-52.0 MCV [Entitic volume] by Automated count 2022-06-08 02:43:47 95.4 fL F 80.0-100.0 Erythrocyte distribution width [Ratio] by Automated count 2022-06-08 02:43:47 15.6 % F 11.0-15.0 Erythrocytes [#/volume] in Blood by Automated count 2022-06-08 02:43:47 2.62 x 10'6 cells/uL F 4.6-6.2 Hemoglobin [Mass/volume] in Blood 2022-06-08 02:43:47 8.1 g/dL F 14.0-18.0 Hematocrit [Volume Fraction] of Blood by Automated count 2022-06-08 02:43:47 25 % F 42.0-52.0 MCV [Entitic volume] by Automated count 2022-06-08 02:43:47 95.4 fL F 80.0-100.0 MCH [Entitic mass] by Automated count 2022-06-08 02:43:47 30.7 pg F 27.0-31.0 MCHC [Mass/volume] by Automated count 2022-06-08 02:43:47 32.2 g/dL F 32.0-36.0 Platelets [#/volume] in Blood by Automated count 2022-06-08 02:43:47 174 x 10^3 cells/uL F 150.0-400.0 Reticulocytes/100 erythrocytes in Blood by Automated count 2022-06-08 02:43:47 1.07 % F 0.8-2.1 Iron [Mass/volume] in Serum or Plasma 2022-06-08 00:37:49 63 ug/dL F 65.0-175.0 Iron binding capacity.unsaturated [Mass/volume] in Serum or Plasma 2022-06-08 00:37:49 135 ug/dL F 75.0-360.0 Iron [Mass/volume] in Serum or Plasma 2022-06-08 00:37:49 63 ug/dL F 65.0-175.0 Iron binding capacity.unsaturated [Mass/volume] in Serum or Plasma 2022-06-08 00:37:49 135 ug/dL F 75.0-360.0 Ferritin [Mass/volume] in Serum or Plasma 2022-06-07 22:03:42 704 ng/mL F 22.0-322.0 Ferritin [Mass/volume] in Serum or Plasma 2022-06-07 22:03:42 704 ng/mL F 22.0-322.0 Comorbidities Description Draw Date Result/Unit Status Ref Range Result Comments Hemoglobin A1c/Hemoglobin.total in Blood 2024-09-25 00:37:22 6.2 %A1c F 0.0-5.6 Hemoglobin A1c/Hemoglobin.total in Blood 2024-09-25 00:37:22 6.2 %A1c F 0.0-5.6 Hemoglobin A1c/Hemoglobin.total in Blood 2024-09-25 00:37:22 6.2 %A1c F 0.0-5.6 Hemoglobin A1c/Hemoglobin.total in Blood 2024-09-23 01:00:08 6 %A1c F 0.0-5.6 Hemoglobin A1c/Hemoglobin.total in Blood 2024-09-23 01:00:08 6 %A1c F 0.0-5.6 Hemoglobin A1c/Hemoglobin.total in Blood 2024-09-23 01:00:08 6 %A1c F 0.0-5.6 Hemoglobin A1c/Hemoglobin.total in Blood 2024-08-09 15:02:09 6.3 %A1c F 0.0-5.6 Hemoglobin A1c/Hemoglobin.total in Blood 2024-08-09 15:02:09 6.3 %A1c F 0.0-5.6 Hemoglobin A1c/Hemoglobin.total in Blood 2023-10-16 06:52:17 6.1 %A1c F 0.0-5.6 Hemoglobin A1c/Hemoglobin.total in Blood 2023-10-16 06:52:17 6.1 %A1c F 0.0-5.6 Hemoglobin A1c/Hemoglobin.total in Blood 2022-06-08 05:33:38 6.3 %A1c F 0.0-5.6 Hemoglobin A1c/Hemoglobin.total in Blood 2022-06-08 05:33:38 6.3 %A1c F 0.0-5.6 FluidBP Description Draw Date Result/Unit Status Ref Range Result Comments Sodium [Moles/volume] in Serum or Plasma 2025-02-07 22:56:42 139 mEq/L F 136.0-145.0 Sodium [Moles/volume] in Serum or Plasma 2025-01-11 03:06:57 141 mEq/L F 136.0-145.0 Sodium [Moles/volume] in Serum or Plasma 2024-12-14 07:13:35 142 mEq/L F 136.0-145.0 Sodium [Moles/volume] in Serum or Plasma 2024-12-14 07:13:35 142 mEq/L F 136.0-145.0 Sodium [Moles/volume] in Serum or Plasma 2024-11-09 06:20:08 141 mEq/L F 136.0-145.0 Sodium [Moles/volume] in Serum or Plasma 2024-11-09 06:20:08 141 mEq/L F 136.0-145.0 Sodium [Moles/volume] in Serum or Plasma 2024-09-25 06:01:22 132 mEq/L F 132.0-146.0 Sodium [Moles/volume] in Serum or Plasma 2024-09-25 06:01:22 132 mEq/L F 132.0-146.0 Sodium [Moles/volume] in Serum or Plasma 2024-09-25 06:01:22 132 mEq/L F 132.0-146.0 Sodium [Moles/volume] in Serum or Plasma 2024-09-23 06:11:36 138 mEq/L F 132.0-146.0 Sodium [Moles/volume] in Serum or Plasma 2024-09-23 06:11:36 138 mEq/L F 132.0-146.0 Sodium [Moles/volume] in Serum or Plasma 2024-09-23 06:11:36 138 mEq/L F 132.0-146.0 Sodium [Moles/volume] in Serum or Plasma 2024-08-10 01:01:55 135 mEq/L F 132.0-146.0 Sodium [Moles/volume] in Serum or Plasma 2024-08-10 01:01:55 135 mEq/L F 132.0-146.0 Sodium [Moles/volume] in Serum or Plasma 2024-07-13 06:53:32 137 mEq/L F 132.0-146.0 Sodium [Moles/volume] in Serum or Plasma 2023-10-16 06:25:18 136 mEq/L F 132.0-146.0 Sodium [Moles/volume] in Serum or Plasma 2023-10-16 06:25:18 136 mEq/L F 132.0-146.0 Sodium [Moles/volume] in Serum or Plasma 2023-02-10 22:26:35 141 mEq/L F 132.0-146.0 Sodium [Moles/volume] in Serum or Plasma 2023-02-10 22:26:35 141 mEq/L F 132.0-146.0 Sodium [Moles/volume] in Serum or Plasma 2023-01-14 02:33:39 136 mEq/L F 132.0-146.0 Sodium [Moles/volume] in Serum or Plasma 2022-12-09 19:03:18 139 mEq/L F 132.0-146.0 Sodium [Moles/volume] in Serum or Plasma 2022-11-11 18:05:21 141 mEq/L F 132.0-146.0 Sodium [Moles/volume] in Serum or Plasma 2022-10-07 23:11:22 136 mEq/L F 132.0-146.0 Sodium [Moles/volume] in Serum or Plasma 2022-10-07 23:11:22 136 mEq/L F 132.0-146.0 Sodium [Moles/volume] in Serum or Plasma 2022-09-09 17:25:14 138 mEq/L F 132.0-146.0 Sodium [Moles/volume] in Serum or Plasma 2022-09-09 17:25:14 138 mEq/L F 132.0-146.0 Sodium [Moles/volume] in Serum or Plasma 2022-07-15 14:33:59 139 mEq/L F 132.0-146.0 Sodium [Moles/volume] in Serum or Plasma 2022-06-07 17:33:43 140 mEq/L F 132.0-146.0 Sodium [Moles/volume] in Serum or Plasma 2022-06-07 17:33:43 140 mEq/L F 132.0-146.0 General Description Draw Date Result/Unit Status Ref Range Result Comments Chloride [Moles/volume] in Serum or Plasma 2025-02-07 22:56:43 96 mEq/L F 98.0-107.0 Alanine aminotransferase [Enzymatic activity/volume] in Serum or Plasma 2025-02-07 15:19:16 13 U/L F 10.0-49.0 Aspartate aminotransferase [Enzymatic activity/volume] in Serum or Plasma 2025-02-07 15:19:16 11 U/L F 0.0-33.0 Chloride [Moles/volume] in Serum or Plasma 2025-01-11 03:06:57 98 mEq/L F 98.0-107.0 Alanine aminotransferase [Enzymatic activity/volume] in Serum or Plasma 2025-01-10 15:36:17 11 U/L F 10.0-49.0 Aspartate aminotransferase [Enzymatic activity/volume] in Serum or Plasma 2025-01-10 15:36:17 13 U/L F 0.0-33.0 Chloride [Moles/volume] in Serum or Plasma 2024-12-14 07:13:35 98 mEq/L F 98.0-107.0 Chloride [Moles/volume] in Serum or Plasma 2024-12-14 07:13:35 98 mEq/L F 98.0-107.0 Aspartate aminotransferase [Enzymatic activity/volume] in Serum or Plasma 2024-12-13 22:44:20 12 U/L F 0.0-33.0 Alanine aminotransferase [Enzymatic activity/volume] in Serum or Plasma 2024-12-13 22:44:20 13 U/L F 10.0-49.0 Alanine aminotransferase [Enzymatic activity/volume] in Serum or Plasma 2024-12-13 22:44:20 13 U/L F 10.0-49.0 Aspartate aminotransferase [Enzymatic activity/volume] in Serum or Plasma 2024-12-13 22:44:20 12 U/L F 0.0-33.0 Chloride [Moles/volume] in Serum or Plasma 2024-11-09 06:20:08 100 mEq/L F 98.0-107.0 Chloride [Moles/volume] in Serum or Plasma 2024-11-09 06:20:08 100 mEq/L F 98.0-107.0 Alanine aminotransferase [Enzymatic activity/volume] in Serum or Plasma 2024-11-09 03:00:16 11 U/L F 10.0-49.0 Aspartate aminotransferase [Enzymatic activity/volume] in Serum or Plasma 2024-11-09 03:00:16 12 U/L F 0.0-33.0 Alanine aminotransferase [Enzymatic activity/volume] in Serum or Plasma 2024-11-09 03:00:16 11 U/L F 10.0-49.0 Aspartate aminotransferase [Enzymatic activity/volume] in Serum or Plasma 2024-11-09 03:00:16 12 U/L F 0.0-33.0 Aluminum [Mass/volume] in Serum or Plasma 2024-09-26 18:47:04 10 ug/L F 0.0-9.0 Aluminum [Mass/volume] in Serum or Plasma 2024-09-26 18:47:04 10 ug/L F 0.0-9.0 Aluminum [Mass/volume] in Serum or Plasma 2024-09-26 18:47:04 10 ug/L F 0.0-9.0 Chloride [Moles/volume] in Serum or Plasma 2024-09-25 06:01:22 94 mEq/L F 99.0-109.0 Chloride [Moles/volume] in Serum or Plasma 2024-09-25 06:01:22 94 mEq/L F 99.0-109.0 Chloride [Moles/volume] in Serum or Plasma 2024-09-25 06:01:22 94 mEq/L F 99.0-109.0 Aspartate aminotransferase [Enzymatic activity/volume] in Serum or Plasma 2024-09-25 01:03:18 14 U/L F 0.0-33.0 Alanine aminotransferase [Enzymatic activity/volume] in Serum or Plasma 2024-09-25 01:03:18 13 U/L F 10.0-49.0 Alanine aminotransferase [Enzymatic activity/volume] in Serum or Plasma 2024-09-25 01:03:18 13 U/L F 10.0-49.0 Aspartate aminotransferase [Enzymatic activity/volume] in Serum or Plasma 2024-09-25 01:03:18 14 U/L F 0.0-33.0 Alanine aminotransferase [Enzymatic activity/volume] in Serum or Plasma 2024-09-25 01:03:18 13 U/L F 10.0-49.0 Aspartate aminotransferase [Enzymatic activity/volume] in Serum or Plasma 2024-09-25 01:03:18 14 U/L F 0.0-33.0 Aluminum [Mass/volume] in Serum or Plasma 2024-09-23 17:03:23 10 ug/L F 0.0-9.0 Aluminum [Mass/volume] in Serum or Plasma 2024-09-23 17:03:23 10 ug/L F 0.0-9.0 Aluminum [Mass/volume] in Serum or Plasma 2024-09-23 17:03:23 10 ug/L F 0.0-9.0 Chloride [Moles/volume] in Serum or Plasma 2024-09-23 06:11:36 97 mEq/L F 99.0-109.0 Chloride [Moles/volume] in Serum or Plasma 2024-09-23 06:11:36 97 mEq/L F 99.0-109.0 Chloride [Moles/volume] in Serum or Plasma 2024-09-23 06:11:36 97 mEq/L F 99.0-109.0 Aspartate aminotransferase [Enzymatic activity/volume] in Serum or Plasma 2024-09-23 05:40:24 17 U/L F 0.0-33.0 Aspartate aminotransferase [Enzymatic activity/volume] in Serum or Plasma 2024-09-23 05:40:24 17 U/L F 0.0-33.0 Aspartate aminotransferase [Enzymatic activity/volume] in Serum or Plasma 2024-09-23 05:40:24 17 U/L F 0.0-33.0 Chloride [Moles/volume] in Serum or Plasma 2024-08-10 01:01:55 97 mEq/L F 99.0-109.0 Chloride [Moles/volume] in Serum or Plasma 2024-08-10 01:01:55 97 mEq/L F 99.0-109.0 Alanine aminotransferase [Enzymatic activity/volume] in Serum or Plasma 2024-08-09 15:19:24 15 U/L F 10.0-49.0 Aspartate aminotransferase [Enzymatic activity/volume] in Serum or Plasma 2024-08-09 15:19:24 15 U/L F 0.0-33.0 Aspartate aminotransferase [Enzymatic activity/volume] in Serum or Plasma 2024-08-09 15:19:24 15 U/L F 0.0-33.0 Alanine aminotransferase [Enzymatic activity/volume] in Serum or Plasma 2024-08-09 15:19:24 15 U/L F 10.0-49.0 Chloride [Moles/volume] in Serum or Plasma 2024-07-13 06:53:32 100 mEq/L F 99.0-109.0 Aspartate aminotransferase [Enzymatic activity/volume] in Serum or Plasma 2024-07-12 15:15:20 14 U/L F 0.0-33.0 Alanine aminotransferase [Enzymatic activity/volume] in Serum or Plasma 2024-07-12 15:15:20 16 U/L F 10.0-49.0 Chloride [Moles/volume] in Serum or Plasma 2023-10-16 06:25:18 98 mEq/L F 99.0-109.0 Chloride [Moles/volume] in Serum or Plasma 2023-10-16 06:25:18 98 mEq/L F 99.0-109.0 Aluminum [Mass/volume] in Serum or Plasma 2023-10-15 17:26:44 10 ug/L F 0.0-9.0 Aluminum [Mass/volume] in Serum or Plasma 2023-10-15 17:26:44 10 ug/L F 0.0-9.0 Alanine aminotransferase [Enzymatic activity/volume] in Serum or Plasma 2023-10-15 15:37:40 19 U/L F 10.0-49.0 Aspartate aminotransferase [Enzymatic activity/volume] in Serum or Plasma 2023-10-15 15:37:40 18 U/L F 0.0-33.0 Aspartate aminotransferase [Enzymatic activity/volume] in Serum or Plasma 2023-10-15 15:37:40 18 U/L F 0.0-33.0 Alanine aminotransferase [Enzymatic activity/volume] in Serum or Plasma 2023-10-15 15:37:40 19 U/L F 10.0-49.0 Chloride [Moles/volume] in Serum or Plasma 2023-02-10 22:26:35 102 mEq/L F 99.0-109.0 Alanine aminotransferase [Enzymatic activity/volume] in Serum or Plasma 2023-02-10 22:26:35 14 U/L F 10.0-49.0 Aspartate aminotransferase [Enzymatic activity/volume] in Serum or Plasma 2023-02-10 22:26:35 17 U/L F 0.0-33.0 Aspartate aminotransferase [Enzymatic activity/volume] in Serum or Plasma 2023-02-10 22:26:35 17 U/L F 0.0-33.0 Alanine aminotransferase [Enzymatic activity/volume] in Serum or Plasma 2023-02-10 22:26:35 14 U/L F 10.0-49.0 Chloride [Moles/volume] in Serum or Plasma 2023-02-10 22:26:35 102 mEq/L F 99.0-109.0 Aspartate aminotransferase [Enzymatic activity/volume] in Serum or Plasma 2023-01-14 02:33:39 18 U/L F 0.0-33.0 Alanine aminotransferase [Enzymatic activity/volume] in Serum or Plasma 2023-01-14 02:33:39 21 U/L F 10.0-49.0 Chloride [Moles/volume] in Serum or Plasma 2023-01-14 02:33:39 98 mEq/L F 99.0-109.0 Aspartate aminotransferase [Enzymatic activity/volume] in Serum or Plasma 2022-12-09 19:03:18 19 U/L F 0.0-33.0 Alanine aminotransferase [Enzymatic activity/volume] in Serum or Plasma 2022-12-09 19:03:18 14 U/L F 10.0-49.0 Chloride [Moles/volume] in Serum or Plasma 2022-12-09 19:03:18 100 mEq/L F 99.0-109.0 Aspartate aminotransferase [Enzymatic activity/volume] in Serum or Plasma 2022-11-11 18:05:21 17 U/L F 0.0-33.0 Alanine aminotransferase [Enzymatic activity/volume] in Serum or Plasma 2022-11-11 18:05:21 14 U/L F 10.0-49.0 Chloride [Moles/volume] in Serum or Plasma 2022-11-11 18:05:21 103 mEq/L F 99.0-109.0 Chloride [Moles/volume] in Serum or Plasma 2022-10-07 23:11:22 99 mEq/L F 99.0-109.0 Chloride [Moles/volume] in Serum or Plasma 2022-10-07 23:11:22 99 mEq/L F 99.0-109.0 Alanine aminotransferase [Enzymatic activity/volume] in Serum or Plasma 2022-10-07 23:11:22 20 U/L F 10.0-49.0 Aspartate aminotransferase [Enzymatic activity/volume] in Serum or Plasma 2022-10-07 23:11:22 20 U/L F 0.0-33.0 Aspartate aminotransferase [Enzymatic activity/volume] in Serum or Plasma 2022-10-07 23:11:22 20 U/L F 0.0-33.0 Alanine aminotransferase [Enzymatic activity/volume] in Serum or Plasma 2022-10-07 23:11:22 20 U/L F 10.0-49.0 Chloride [Moles/volume] in Serum or Plasma 2022-09-09 17:25:14 100 mEq/L F 99.0-109.0 Alanine aminotransferase [Enzymatic activity/volume] in Serum or Plasma 2022-09-09 17:25:14 15 U/L F 10.0-49.0 Aspartate aminotransferase [Enzymatic activity/volume] in Serum or Plasma 2022-09-09 17:25:14 16 U/L F 0.0-33.0 Aspartate aminotransferase [Enzymatic activity/volume] in Serum or Plasma 2022-09-09 17:25:14 16 U/L F 0.0-33.0 Alanine aminotransferase [Enzymatic activity/volume] in Serum or Plasma 2022-09-09 17:25:14 15 U/L F 10.0-49.0 Chloride [Moles/volume] in Serum or Plasma 2022-09-09 17:25:14 100 mEq/L F 99.0-109.0 Aspartate aminotransferase [Enzymatic activity/volume] in Serum or Plasma 2022-07-15 14:33:59 23 U/L F 0.0-33.0 Alanine aminotransferase [Enzymatic activity/volume] in Serum or Plasma 2022-07-15 14:33:59 21 U/L F 10.0-49.0 Chloride [Moles/volume] in Serum or Plasma 2022-07-15 14:33:59 99 mEq/L F 99.0-109.0 Aluminum [Mass/volume] in Serum or Plasma 2022-06-10 15:45:28 10 ug/L F 0.0-9.0 Aluminum [Mass/volume] in Serum or Plasma 2022-06-10 15:45:28 10 ug/L F 0.0-9.0 Aspartate aminotransferase [Enzymatic activity/volume] in Serum or Plasma 2022-06-07 17:33:43 16 U/L F 0.0-33.0 Alanine aminotransferase [Enzymatic activity/volume] in Serum or Plasma 2022-06-07 17:33:43 14 U/L F 10.0-49.0 Chloride [Moles/volume] in Serum or Plasma 2022-06-07 17:33:43 107 mEq/L F 99.0-109.0 Chloride [Moles/volume] in Serum or Plasma 2022-06-07 17:33:43 107 mEq/L F 99.0-109.0 Alanine aminotransferase [Enzymatic activity/volume] in Serum or Plasma 2022-06-07 17:33:43 14 U/L F 10.0-49.0 Aspartate aminotransferase [Enzymatic activity/volume] in Serum or Plasma 2022-06-07 17:33:43 16 U/L F 0.0-33.0 InfectionVaccination Description Draw Date Result/Unit Status Ref Range Result Comments Basophils/100 leukocytes in Blood by Automated count 2025-02-07 14:18:14 0.1 % F Neutrophils/100 leukocytes in Blood by Automated count 2025-02-07 14:18:14 72.7 % F Lymphocytes/100 leukocytes in Blood by Automated count 2025-02-07 14:18:14 14.5 % F Monocytes/100 leukocytes in Blood by Automated count 2025-02-07 14:18:14 5.8 % F Eosinophils/100 leukocytes in Blood by Automated count 2025-02-07 14:18:14 6.9 % F Leukocytes [#/volume] in Blood by Automated count 2025-02-07 14:18:14 6.9 x 10^3 cells/uL F 4.0-11.0 Neutrophils [#/volume] in Blood by Automated count 2025-02-07 14:18:14 5002 Cells/uL F 2000.0-8800.0 Lymphocytes [#/volume] in Blood by Automated count 2025-02-07 14:18:14 998 Cells/uL F 620.0-3660.0 Monocytes [#/volume] in Blood by Automated count 2025-02-07 14:18:14 399 Cells/uL F 0.0-1100.0 Eosinophils [#/volume] in Blood by Automated count 2025-02-07 14:18:14 475 Cells/uL F 0.0-700.0 Basophils [#/volume] in Blood by Automated count 2025-02-07 14:18:12 7 Cells/uL F 0.0-400.0 Basophils/100 leukocytes in Blood by Automated count 2025-01-10 20:53:17 0.2 % F Neutrophils/100 leukocytes in Blood by Automated count 2025-01-10 20:53:17 68.8 % F Lymphocytes/100 leukocytes in Blood by Automated count 2025-01-10 20:53:17 19.1 % F Eosinophils/100 leukocytes in Blood by Automated count 2025-01-10 20:53:17 6.8 % F Monocytes/100 leukocytes in Blood by Automated count 2025-01-10 20:53:17 5.1 % F Leukocytes [#/volume] in Blood by Automated count 2025-01-10 20:53:17 6 x 10^3 cells/uL F 4.0-11.0 Neutrophils [#/volume] in Blood by Automated count 2025-01-10 20:53:17 4135 Cells/uL F 2000.0-8800.0 Lymphocytes [#/volume] in Blood by Automated count 2025-01-10 20:53:17 1148 Cells/uL F 620.0-3660.0 Monocytes [#/volume] in Blood by Automated count 2025-01-10 20:53:17 307 Cells/uL F 0.0-1100.0 Basophils [#/volume] in Blood by Automated count 2025-01-10 20:53:17 12 Cells/uL F 0.0-400.0 Eosinophils [#/volume] in Blood by Automated count 2025-01-10 20:53:17 409 Cells/uL F 0.0-700.0 Eosinophils [#/volume] in Blood by Automated count 2024-12-14 00:19:11 446 Cells/uL F 0.0-700.0 Neutrophils/100 leukocytes in Blood by Automated count 2024-12-14 00:19:11 66.8 % F Neutrophils [#/volume] in Blood by Automated count 2024-12-14 00:19:11 3774 Cells/uL F 2000.0-8800.0 Leukocytes [#/volume] in Blood by Automated count 2024-12-14 00:19:11 5.6 x 10^3 cells/uL F 4.0-11.0 Lymphocytes [#/volume] in Blood by Automated count 2024-12-14 00:19:11 1130 Cells/uL F 620.0-3660.0 Basophils/100 leukocytes in Blood by Automated count 2024-12-14 00:19:11 0.6 % F Monocytes/100 leukocytes in Blood by Automated count 2024-12-14 00:19:11 4.8 % F Lymphocytes/100 leukocytes in Blood by Automated count 2024-12-14 00:19:11 20 % F Monocytes [#/volume] in Blood by Automated count 2024-12-14 00:19:11 271 Cells/uL F 0.0-1100.0 Basophils [#/volume] in Blood by Automated count 2024-12-14 00:19:11 34 Cells/uL F 0.0-400.0 Eosinophils/100 leukocytes in Blood by Automated count 2024-12-14 00:19:11 7.9 % F Neutrophils/100 leukocytes in Blood by Automated count 2024-12-14 00:19:11 66.8 % F Basophils/100 leukocytes in Blood by Automated count 2024-12-14 00:19:11 0.6 % F Lymphocytes/100 leukocytes in Blood by Automated count 2024-12-14 00:19:11 20 % F Monocytes/100 leukocytes in Blood by Automated count 2024-12-14 00:19:11 4.8 % F Eosinophils/100 leukocytes in Blood by Automated count 2024-12-14 00:19:11 7.9 % F Leukocytes [#/volume] in Blood by Automated count 2024-12-14 00:19:11 5.6 x 10^3 cells/uL F 4.0-11.0 Lymphocytes [#/volume] in Blood by Automated count 2024-12-14 00:19:11 1130 Cells/uL F 620.0-3660.0 Monocytes [#/volume] in Blood by Automated count 2024-12-14 00:19:11 271 Cells/uL F 0.0-1100.0 Neutrophils [#/volume] in Blood by Automated count 2024-12-14 00:19:11 3774 Cells/uL F 2000.0-8800.0 Basophils [#/volume] in Blood by Automated count 2024-12-14 00:19:11 34 Cells/uL F 0.0-400.0 Eosinophils [#/volume] in Blood by Automated count 2024-12-14 00:19:11 446 Cells/uL F 0.0-700.0 Basophils/100 leukocytes in Blood by Automated count 2024-11-09 00:15:12 0.8 % F Lymphocytes/100 leukocytes in Blood by Automated count 2024-11-09 00:15:12 17.8 % F Neutrophils/100 leukocytes in Blood by Automated count 2024-11-09 00:15:12 67.7 % F Monocytes/100 leukocytes in Blood by Automated count 2024-11-09 00:15:12 5.2 % F Eosinophils/100 leukocytes in Blood by Automated count 2024-11-09 00:15:12 8.5 % F Leukocytes [#/volume] in Blood by Automated count 2024-11-09 00:15:12 6.4 x 10^3 cells/uL F 4.0-11.0 Neutrophils [#/volume] in Blood by Automated count 2024-11-09 00:15:12 4319 Cells/uL F 2000.0-8800.0 Monocytes [#/volume] in Blood by Automated count 2024-11-09 00:15:12 332 Cells/uL F 0.0-1100.0 Eosinophils [#/volume] in Blood by Automated count 2024-11-09 00:15:12 542 Cells/uL F 0.0-700.0 Basophils [#/volume] in Blood by Automated count 2024-11-09 00:15:12 51 Cells/uL F 0.0-400.0 Lymphocytes [#/volume] in Blood by Automated count 2024-11-09 00:15:12 1136 Cells/uL F 620.0-3660.0 Neutrophils/100 leukocytes in Blood by Automated count 2024-11-09 00:15:12 67.7 % F Monocytes/100 leukocytes in Blood by Automated count 2024-11-09 00:15:12 5.2 % F Eosinophils/100 leukocytes in Blood by Automated count 2024-11-09 00:15:12 8.5 % F Leukocytes [#/volume] in Blood by Automated count 2024-11-09 00:15:12 6.4 x 10^3 cells/uL F 4.0-11.0 Lymphocytes [#/volume] in Blood by Automated count 2024-11-09 00:15:12 1136 Cells/uL F 620.0-3660.0 Monocytes [#/volume] in Blood by Automated count 2024-11-09 00:15:12 332 Cells/uL F 0.0-1100.0 Basophils [#/volume] in Blood by Automated count 2024-11-09 00:15:12 51 Cells/uL F 0.0-400.0 Eosinophils [#/volume] in Blood by Automated count 2024-11-09 00:15:12 542 Cells/uL F 0.0-700.0 Basophils/100 leukocytes in Blood by Automated count 2024-11-09 00:15:12 0.8 % F Lymphocytes/100 leukocytes in Blood by Automated count 2024-11-09 00:15:12 17.8 % F Neutrophils [#/volume] in Blood by Automated count 2024-11-09 00:15:12 4319 Cells/uL F 2000.0-8800.0 Monocytes [#/volume] in Blood by Automated count 2024-09-25 00:13:19 381 Cells/uL F 0.0-1100.0 Lymphocytes/100 leukocytes in Blood by Automated count 2024-09-25 00:13:19 16.2 % F Basophils/100 leukocytes in Blood by Automated count 2024-09-25 00:13:19 0.3 % F Neutrophils [#/volume] in Blood by Automated count 2024-09-25 00:13:19 4344 Cells/uL F 2000.0-8800.0 Neutrophils/100 leukocytes in Blood by Automated count 2024-09-25 00:13:19 69.5 % F Eosinophils/100 leukocytes in Blood by Automated count 2024-09-25 00:13:19 7.9 % F Leukocytes [#/volume] in Blood by Automated count 2024-09-25 00:13:19 6.2 x 10^3 cells/uL F 4.0-11.0 Basophils [#/volume] in Blood by Automated count 2024-09-25 00:13:19 19 Cells/uL F 0.0-400.0 Eosinophils [#/volume] in Blood by Automated count 2024-09-25 00:13:19 494 Cells/uL F 0.0-700.0 Lymphocytes [#/volume] in Blood by Automated count 2024-09-25 00:13:19 1012 Cells/uL F 620.0-3660.0 Monocytes/100 leukocytes in Blood by Automated count 2024-09-25 00:13:19 6.1 % F Basophils/100 leukocytes in Blood by Automated count 2024-09-25 00:13:19 0.3 % F Neutrophils/100 leukocytes in Blood by Automated count 2024-09-25 00:13:19 69.5 % F Monocytes/100 leukocytes in Blood by Automated count 2024-09-25 00:13:19 6.1 % F Eosinophils/100 leukocytes in Blood by Automated count 2024-09-25 00:13:19 7.9 % F Lymphocytes/100 leukocytes in Blood by Automated count 2024-09-25 00:13:19 16.2 % F Leukocytes [#/volume] in Blood by Automated count 2024-09-25 00:13:19 6.2 x 10^3 cells/uL F 4.0-11.0 Neutrophils [#/volume] in Blood by Automated count 2024-09-25 00:13:19 4344 Cells/uL F 2000.0-8800.0 Lymphocytes [#/volume] in Blood by Automated count 2024-09-25 00:13:19 1012 Cells/uL F 620.0-3660.0 Monocytes [#/volume] in Blood by Automated count 2024-09-25 00:13:19 381 Cells/uL F 0.0-1100.0 Eosinophils [#/volume] in Blood by Automated count 2024-09-25 00:13:19 494 Cells/uL F 0.0-700.0 Basophils [#/volume] in Blood by Automated count 2024-09-25 00:13:19 19 Cells/uL F 0.0-400.0 Basophils/100 leukocytes in Blood by Automated count 2024-09-25 00:13:19 0.3 % F Neutrophils/100 leukocytes in Blood by Automated count 2024-09-25 00:13:19 69.5 % F Lymphocytes/100 leukocytes in Blood by Automated count 2024-09-25 00:13:19 16.2 % F Monocytes/100 leukocytes in Blood by Automated count 2024-09-25 00:13:19 6.1 % F Eosinophils/100 leukocytes in Blood by Automated count 2024-09-25 00:13:19 7.9 % F Leukocytes [#/volume] in Blood by Automated count 2024-09-25 00:13:19 6.2 x 10^3 cells/uL F 4.0-11.0 Neutrophils [#/volume] in Blood by Automated count 2024-09-25 00:13:19 4344 Cells/uL F 2000.0-8800.0 Lymphocytes [#/volume] in Blood by Automated count 2024-09-25 00:13:19 1012 Cells/uL F 620.0-3660.0 Basophils [#/volume] in Blood by Automated count 2024-09-25 00:13:19 19 Cells/uL F 0.0-400.0 Monocytes [#/volume] in Blood by Automated count 2024-09-25 00:13:19 381 Cells/uL F 0.0-1100.0 Eosinophils [#/volume] in Blood by Automated count 2024-09-25 00:13:19 494 Cells/uL F 0.0-700.0 Monocytes/100 leukocytes in Blood by Automated count 2024-09-22 19:52:18 5.7 % F Neutrophils/100 leukocytes in Blood by Automated count 2024-09-22 19:52:18 69.9 % F Eosinophils/100 leukocytes in Blood by Automated count 2024-09-22 19:52:18 7.7 % F Basophils/100 leukocytes in Blood by Automated count 2024-09-22 19:52:18 0.3 % F Lymphocytes/100 leukocytes in Blood by Automated count 2024-09-22 19:52:18 16.3 % F Monocytes [#/volume] in Blood by Automated count 2024-09-22 19:52:18 374 Cells/uL F 0.0-1100.0 Basophils [#/volume] in Blood by Automated count 2024-09-22 19:52:18 20 Cells/uL F 0.0-400.0 Eosinophils [#/volume] in Blood by Automated count 2024-09-22 19:52:18 506 Cells/uL F 0.0-700.0 Neutrophils [#/volume] in Blood by Automated count 2024-09-22 19:52:18 4592 Cells/uL F 2000.0-8800.0 Leukocytes [#/volume] in Blood by Automated count 2024-09-22 19:52:18 6.6 x 10^3 cells/uL F 4.0-11.0 Lymphocytes [#/volume] in Blood by Automated count 2024-09-22 19:52:18 1071 Cells/uL F 620.0-3660.0 Basophils/100 leukocytes in Blood by Automated count 2024-09-22 19:52:18 0.3 % F Neutrophils/100 leukocytes in Blood by Automated count 2024-09-22 19:52:18 69.9 % F Lymphocytes/100 leukocytes in Blood by Automated count 2024-09-22 19:52:18 16.3 % F Monocytes/100 leukocytes in Blood by Automated count 2024-09-22 19:52:18 5.7 % F Eosinophils/100 leukocytes in Blood by Automated count 2024-09-22 19:52:18 7.7 % F Leukocytes [#/volume] in Blood by Automated count 2024-09-22 19:52:18 6.6 x 10^3 cells/uL F 4.0-11.0 Neutrophils [#/volume] in Blood by Automated count 2024-09-22 19:52:18 4592 Cells/uL F 2000.0-8800.0 Lymphocytes [#/volume] in Blood by Automated count 2024-09-22 19:52:18 1071 Cells/uL F 620.0-3660.0 Monocytes [#/volume] in Blood by Automated count 2024-09-22 19:52:18 374 Cells/uL F 0.0-1100.0 Basophils [#/volume] in Blood by Automated count 2024-09-22 19:52:18 20 Cells/uL F 0.0-400.0 Eosinophils [#/volume] in Blood by Automated count 2024-09-22 19:52:18 506 Cells/uL F 0.0-700.0 Monocytes [#/volume] in Blood by Automated count 2024-09-22 19:52:18 374 Cells/uL F 0.0-1100.0 Eosinophils [#/volume] in Blood by Automated count 2024-09-22 19:52:18 506 Cells/uL F 0.0-700.0 Basophils/100 leukocytes in Blood by Automated count 2024-09-22 19:52:18 0.3 % F Neutrophils/100 leukocytes in Blood by Automated count 2024-09-22 19:52:18 69.9 % F Monocytes/100 leukocytes in Blood by Automated count 2024-09-22 19:52:18 5.7 % F Eosinophils/100 leukocytes in Blood by Automated count 2024-09-22 19:52:18 7.7 % F Lymphocytes/100 leukocytes in Blood by Automated count 2024-09-22 19:52:18 16.3 % F Leukocytes [#/volume] in Blood by Automated count 2024-09-22 19:52:18 6.6 x 10^3 cells/uL F 4.0-11.0 Neutrophils [#/volume] in Blood by Automated count 2024-09-22 19:52:18 4592 Cells/uL F 2000.0-8800.0 Lymphocytes [#/volume] in Blood by Automated count 2024-09-22 19:52:18 1071 Cells/uL F 620.0-3660.0 Basophils [#/volume] in Blood by Automated count 2024-09-22 19:52:18 20 Cells/uL F 0.0-400.0 Neutrophils/100 leukocytes in Blood by Automated count 2024-08-09 14:07:16 67.5 % F Neutrophils [#/volume] in Blood by Automated count 2024-08-09 14:07:16 4003 Cells/uL F 2000.0-8800.0 Monocytes [#/volume] in Blood by Automated count 2024-08-09 14:07:16 338 Cells/uL F 0.0-1100.0 Neutrophils/100 leukocytes in Blood by Automated count 2024-08-09 14:07:16 67.5 % F Monocytes [#/volume] in Blood by Automated count 2024-08-09 14:07:16 338 Cells/uL F 0.0-1100.0 Neutrophils [#/volume] in Blood by Automated count 2024-08-09 14:07:16 4003 Cells/uL F 2000.0-8800.0 Basophils/100 leukocytes in Blood by Automated count 2024-08-09 14:07:15 0.2 % F Lymphocytes/100 leukocytes in Blood by Automated count 2024-08-09 14:07:15 20.2 % F Monocytes/100 leukocytes in Blood by Automated count 2024-08-09 14:07:15 5.7 % F Eosinophils/100 leukocytes in Blood by Automated count 2024-08-09 14:07:15 6.4 % F Leukocytes [#/volume] in Blood by Automated count 2024-08-09 14:07:15 5.9 x 10^3 cells/uL F 4.0-11.0 Basophils [#/volume] in Blood by Automated count 2024-08-09 14:07:15 12 Cells/uL F 0.0-400.0 Lymphocytes [#/volume] in Blood by Automated count 2024-08-09 14:07:15 1198 Cells/uL F 620.0-3660.0 Eosinophils [#/volume] in Blood by Automated count 2024-08-09 14:07:15 380 Cells/uL F 0.0-700.0 Eosinophils/100 leukocytes in Blood by Automated count 2024-08-09 14:07:15 6.4 % F Monocytes/100 leukocytes in Blood by Automated count 2024-08-09 14:07:15 5.7 % F Basophils/100 leukocytes in Blood by Automated count 2024-08-09 14:07:15 0.2 % F Lymphocytes/100 leukocytes in Blood by Automated count 2024-08-09 14:07:15 20.2 % F Basophils [#/volume] in Blood by Automated count 2024-08-09 14:07:15 12 Cells/uL F 0.0-400.0 Eosinophils [#/volume] in Blood by Automated count 2024-08-09 14:07:15 380 Cells/uL F 0.0-700.0 Leukocytes [#/volume] in Blood by Automated count 2024-08-09 14:07:15 5.9 x 10^3 cells/uL F 4.0-11.0 Lymphocytes [#/volume] in Blood by Automated count 2024-08-09 14:07:15 1198 Cells/uL F 620.0-3660.0 Neutrophils/100 leukocytes in Blood by Automated count 2024-07-12 16:47:18 72.6 % F Monocytes [#/volume] in Blood by Automated count 2024-07-12 16:47:18 398 Cells/uL F 0.0-1100.0 Monocytes/100 leukocytes in Blood by Automated count 2024-07-12 16:47:18 5.6 % F Neutrophils [#/volume] in Blood by Automated count 2024-07-12 16:47:18 5155 Cells/uL F 2000.0-8800.0 Basophils/100 leukocytes in Blood by Automated count 2024-07-12 16:47:17 0.3 % F Lymphocytes/100 leukocytes in Blood by Automated count 2024-07-12 16:47:17 15 % F Eosinophils/100 leukocytes in Blood by Automated count 2024-07-12 16:47:17 6.4 % F Basophils [#/volume] in Blood by Automated count 2024-07-12 16:47:17 21 Cells/uL F 0.0-400.0 Eosinophils [#/volume] in Blood by Automated count 2024-07-12 16:47:17 454 Cells/uL F 0.0-700.0 Leukocytes [#/volume] in Blood by Automated count 2024-07-12 16:47:17 7.1 x 10^3 cells/uL F 4.0-11.0 Lymphocytes [#/volume] in Blood by Automated count 2024-07-12 16:47:17 1065 Cells/uL F 620.0-3660.0 Basophils/100 leukocytes in Blood by Automated count 2023-10-16 03:50:24 0.4 % F Neutrophils/100 leukocytes in Blood by Automated count 2023-10-16 03:50:24 76.9 % F Lymphocytes/100 leukocytes in Blood by Automated count 2023-10-16 03:50:24 12.3 % F Monocytes/100 leukocytes in Blood by Automated count 2023-10-16 03:50:24 4.9 % F Eosinophils/100 leukocytes in Blood by Automated count 2023-10-16 03:50:24 5.6 % F Leukocytes [#/volume] in Blood by Automated count 2023-10-16 03:50:24 7.8 x 10^3 cells/uL F 4.0-11.0 Neutrophils [#/volume] in Blood by Automated count 2023-10-16 03:50:24 5991 Cell/uL F 2000.0-8800.0 Lymphocytes [#/volume] in Blood by Automated count 2023-10-16 03:50:24 958 Cell/uL F 620.0-3660.0 Monocytes [#/volume] in Blood by Automated count 2023-10-16 03:50:24 382 Cell/uL F 0.0-1100.0 Basophils [#/volume] in Blood by Automated count 2023-10-16 03:50:24 31 Cell/uL F 0.0-400.0 Eosinophils [#/volume] in Blood by Automated count 2023-10-16 03:50:24 436 Cell/uL F 0.0-700.0 Basophils/100 leukocytes in Blood by Automated count 2023-10-16 03:50:24 0.4 % F Neutrophils/100 leukocytes in Blood by Automated count 2023-10-16 03:50:24 76.9 % F Eosinophils/100 leukocytes in Blood by Automated count 2023-10-16 03:50:24 5.6 % F Monocytes/100 leukocytes in Blood by Automated count 2023-10-16 03:50:24 4.9 % F Lymphocytes/100 leukocytes in Blood by Automated count 2023-10-16 03:50:24 12.3 % F Monocytes [#/volume] in Blood by Automated count 2023-10-16 03:50:24 382 Cell/uL F 0.0-1100.0 Basophils [#/volume] in Blood by Automated count 2023-10-16 03:50:24 31 Cell/uL F 0.0-400.0 Eosinophils [#/volume] in Blood by Automated count 2023-10-16 03:50:24 436 Cell/uL F 0.0-700.0 Neutrophils [#/volume] in Blood by Automated count 2023-10-16 03:50:24 5991 Cell/uL F 2000.0-8800.0 Leukocytes [#/volume] in Blood by Automated count 2023-10-16 03:50:24 7.8 x 10^3 cells/uL F 4.0-11.0 Lymphocytes [#/volume] in Blood by Automated count 2023-10-16 03:50:24 958 Cell/uL F 620.0-3660.0 Basophils/100 leukocytes in Blood by Automated count 2023-02-11 00:28:38 0.2 % F Lymphocytes/100 leukocytes in Blood by Automated count 2023-02-11 00:28:38 19.2 % F Monocytes/100 leukocytes in Blood by Automated count 2023-02-11 00:28:38 6.4 % F Neutrophils/100 leukocytes in Blood by Automated count 2023-02-11 00:28:38 66.4 % F Eosinophils/100 leukocytes in Blood by Automated count 2023-02-11 00:28:38 7.7 % F Leukocytes [#/volume] in Blood by Automated count 2023-02-11 00:28:38 5.6 x 10^3 cells/uL F 4.0-11.0 Neutrophils [#/volume] in Blood by Automated count 2023-02-11 00:28:38 3698 Cell/uL F 2000.0-8800.0 Monocytes [#/volume] in Blood by Automated count 2023-02-11 00:28:38 356 Cell/uL F 0.0-1100.0 Lymphocytes [#/volume] in Blood by Automated count 2023-02-11 00:28:38 1069 Cell/uL F 620.0-3660.0 Basophils [#/volume] in Blood by Automated count 2023-02-11 00:28:38 11 Cell/uL F 0.0-400.0 Eosinophils [#/volume] in Blood by Automated count 2023-02-11 00:28:38 429 Cell/uL F 0.0-700.0 Monocytes/100 leukocytes in Blood by Automated count 2023-02-11 00:28:38 6.4 % F Eosinophils/100 leukocytes in Blood by Automated count 2023-02-11 00:28:38 7.7 % F Neutrophils/100 leukocytes in Blood by Automated count 2023-02-11 00:28:38 66.4 % F Basophils/100 leukocytes in Blood by Automated count 2023-02-11 00:28:38 0.2 % F Lymphocytes/100 leukocytes in Blood by Automated count 2023-02-11 00:28:38 19.2 % F Basophils [#/volume] in Blood by Automated count 2023-02-11 00:28:38 11 Cell/uL F 0.0-400.0 Monocytes [#/volume] in Blood by Automated count 2023-02-11 00:28:38 356 Cell/uL F 0.0-1100.0 Eosinophils [#/volume] in Blood by Automated count 2023-02-11 00:28:38 429 Cell/uL F 0.0-700.0 Neutrophils [#/volume] in Blood by Automated count 2023-02-11 00:28:38 3698 Cell/uL F 2000.0-8800.0 Leukocytes [#/volume] in Blood by Automated count 2023-02-11 00:28:38 5.6 x 10^3 cells/uL F 4.0-11.0 Lymphocytes [#/volume] in Blood by Automated count 2023-02-11 00:28:38 1069 Cell/uL F 620.0-3660.0 Basophils/100 leukocytes in Blood by Automated count 2023-01-13 21:01:36 0.3 % F Neutrophils/100 leukocytes in Blood by Automated count 2023-01-13 21:01:36 66.9 % F Lymphocytes/100 leukocytes in Blood by Automated count 2023-01-13 21:01:36 18.3 % F Eosinophils/100 leukocytes in Blood by Automated count 2023-01-13 21:01:36 8.8 % F Monocytes/100 leukocytes in Blood by Automated count 2023-01-13 21:01:36 5.7 % F Monocytes [#/volume] in Blood by Automated count 2023-01-13 21:01:36 368 Cell/uL F 0.0-1100.0 Eosinophils [#/volume] in Blood by Automated count 2023-01-13 21:01:36 568 Cell/uL F 0.0-700.0 Basophils [#/volume] in Blood by Automated count 2023-01-13 21:01:36 19 Cell/uL F 0.0-400.0 Neutrophils [#/volume] in Blood by Automated count 2023-01-13 21:01:36 4322 Cell/uL F 2000.0-8800.0 Leukocytes [#/volume] in Blood by Automated count 2023-01-13 21:01:36 6.5 x 10^3 cells/uL F 4.0-11.0 Lymphocytes [#/volume] in Blood by Automated count 2023-01-13 21:01:36 1182 Cell/uL F 620.0-3660.0 Basophils/100 leukocytes in Blood by Automated count 2022-12-10 01:20:22 0.9 % F Lymphocytes/100 leukocytes in Blood by Automated count 2022-12-10 01:20:22 15.4 % F Monocytes/100 leukocytes in Blood by Automated count 2022-12-10 01:20:22 7.7 % F Eosinophils/100 leukocytes in Blood by Automated count 2022-12-10 01:20:22 9.4 % F Neutrophils/100 leukocytes in Blood by Automated count 2022-12-10 01:20:22 66.6 % F Monocytes [#/volume] in Blood by Automated count 2022-12-10 01:20:22 448 Cell/uL F 0.0-1100.0 Basophils [#/volume] in Blood by Automated count 2022-12-10 01:20:22 52 Cell/uL F 0.0-400.0 Eosinophils [#/volume] in Blood by Automated count 2022-12-10 01:20:22 547 Cell/uL F 0.0-700.0 Neutrophils [#/volume] in Blood by Automated count 2022-12-10 01:20:22 3876 Cell/uL F 2000.0-8800.0 Leukocytes [#/volume] in Blood by Automated count 2022-12-10 01:20:22 5.8 x 10^3 cells/uL F 4.0-11.0 Lymphocytes [#/volume] in Blood by Automated count 2022-12-10 01:20:22 896 Cell/uL F 620.0-3660.0 Monocytes/100 leukocytes in Blood by Automated count 2022-11-11 15:23:24 6.7 % F Lymphocytes/100 leukocytes in Blood by Automated count 2022-11-11 15:23:24 16.5 % F Basophils/100 leukocytes in Blood by Automated count 2022-11-11 15:23:24 0.7 % F Eosinophils/100 leukocytes in Blood by Automated count 2022-11-11 15:23:24 8.3 % F Neutrophils/100 leukocytes in Blood by Automated count 2022-11-11 15:23:24 67.8 % F Monocytes [#/volume] in Blood by Automated count 2022-11-11 15:23:24 465 Cell/uL F 0.0-1100.0 Basophils [#/volume] in Blood by Automated count 2022-11-11 15:23:24 49 Cell/uL F 0.0-400.0 Eosinophils [#/volume] in Blood by Automated count 2022-11-11 15:23:24 576 Cell/uL F 0.0-700.0 Neutrophils [#/volume] in Blood by Automated count 2022-11-11 15:23:24 4705 Cell/uL F 2000.0-8800.0 Leukocytes [#/volume] in Blood by Automated count 2022-11-11 15:23:24 6.9 x 10^3 cells/uL F 4.0-11.0 Lymphocytes [#/volume] in Blood by Automated count 2022-11-11 15:23:24 1145 Cell/uL F 620.0-3660.0 Leukocytes [#/volume] in Blood by Automated count 2022-10-08 05:17:16 5.5 x 10^3 cells/uL F 4.5-11.0 Neutrophils/100 leukocytes in Blood by Automated count 2022-10-08 05:17:16 69 % F Lymphocytes/100 leukocytes in Blood by Automated count 2022-10-08 05:17:16 17.3 % F Basophils/100 leukocytes in Blood by Automated count 2022-10-08 05:17:16 0.3 % F Monocytes/100 leukocytes in Blood by Automated count 2022-10-08 05:17:16 6.8 % F Eosinophils/100 leukocytes in Blood by Automated count 2022-10-08 05:17:16 6.6 % F Leukocytes [#/volume] in Blood by Automated count 2022-10-08 05:17:16 5.5 x 10^3 cells/uL F 4.5-11.0 Neutrophils [#/volume] in Blood by Automated count 2022-10-08 05:17:16 3815.7 Cell/uL F 2000.0-8800.0 Lymphocytes [#/volume] in Blood by Automated count 2022-10-08 05:17:16 956.69 Cell/uL F 1100.0-4800.0 Monocytes [#/volume] in Blood by Automated count 2022-10-08 05:17:16 376.04 Cell/uL F 0.0-1100.0 Basophils [#/volume] in Blood by Automated count 2022-10-08 05:17:16 16.59 Cell/uL F 0.0-400.0 Eosinophils [#/volume] in Blood by Automated count 2022-10-08 05:17:16 364.98 Cell/uL F 0.0-700.0 Lymphocytes/100 leukocytes in Blood by Automated count 2022-10-08 05:17:16 17.3 % F Eosinophils/100 leukocytes in Blood by Automated count 2022-10-08 05:17:16 6.6 % F Neutrophils/100 leukocytes in Blood by Automated count 2022-10-08 05:17:16 69 % F Monocytes/100 leukocytes in Blood by Automated count 2022-10-08 05:17:16 6.8 % F Basophils/100 leukocytes in Blood by Automated count 2022-10-08 05:17:16 0.3 % F Monocytes [#/volume] in Blood by Automated count 2022-10-08 05:17:16 376.04 Cell/uL F 0.0-1100.0 Basophils [#/volume] in Blood by Automated count 2022-10-08 05:17:16 16.59 Cell/uL F 0.0-400.0 Eosinophils [#/volume] in Blood by Automated count 2022-10-08 05:17:16 364.98 Cell/uL F 0.0-700.0 Lymphocytes [#/volume] in Blood by Automated count 2022-10-08 05:17:16 956.69 Cell/uL F 1100.0-4800.0 Neutrophils [#/volume] in Blood by Automated count 2022-10-08 05:17:16 3815.7 Cell/uL F 2000.0-8800.0 Basophils [#/volume] in Blood by Automated count 2022-09-09 17:19:20 23.08 Cell/uL F 0.0-400.0 Basophils [#/volume] in Blood by Automated count 2022-09-09 17:19:20 23.08 Cell/uL F 0.0-400.0 Basophils/100 leukocytes in Blood by Automated count 2022-09-09 17:19:19 0.4 % F Neutrophils/100 leukocytes in Blood by Automated count 2022-09-09 17:19:19 72.2 % F Lymphocytes/100 leukocytes in Blood by Automated count 2022-09-09 17:19:19 14.9 % F Monocytes/100 leukocytes in Blood by Automated count 2022-09-09 17:19:19 5.7 % F Eosinophils/100 leukocytes in Blood by Automated count 2022-09-09 17:19:19 6.8 % F Leukocytes [#/volume] in Blood by Automated count 2022-09-09 17:19:19 5.8 x 10^3 cells/uL F 4.5-11.0 Neutrophils [#/volume] in Blood by Automated count 2022-09-09 17:19:19 4165.94 Cell/uL F 2000.0-8800.0 Lymphocytes [#/volume] in Blood by Automated count 2022-09-09 17:19:19 859.73 Cell/uL F 1100.0-4800.0 Monocytes [#/volume] in Blood by Automated count 2022-09-09 17:19:19 328.89 Cell/uL F 0.0-1100.0 Eosinophils [#/volume] in Blood by Automated count 2022-09-09 17:19:19 392.36 Cell/uL F 0.0-700.0 Neutrophils/100 leukocytes in Blood by Automated count 2022-09-09 17:19:19 72.2 % F Monocytes/100 leukocytes in Blood by Automated count 2022-09-09 17:19:19 5.7 % F Basophils/100 leukocytes in Blood by Automated count 2022-09-09 17:19:19 0.4 % F Eosinophils/100 leukocytes in Blood by Automated count 2022-09-09 17:19:19 6.8 % F Lymphocytes/100 leukocytes in Blood by Automated count 2022-09-09 17:19:19 14.9 % F Monocytes [#/volume] in Blood by Automated count 2022-09-09 17:19:19 328.89 Cell/uL F 0.0-1100.0 Eosinophils [#/volume] in Blood by Automated count 2022-09-09 17:19:19 392.36 Cell/uL F 0.0-700.0 Lymphocytes [#/volume] in Blood by Automated count 2022-09-09 17:19:19 859.73 Cell/uL F 1100.0-4800.0 Neutrophils [#/volume] in Blood by Automated count 2022-09-09 17:19:19 4165.94 Cell/uL F 2000.0-8800.0 Leukocytes [#/volume] in Blood by Automated count 2022-09-09 17:19:19 5.8 x 10^3 cells/uL F 4.5-11.0 Monocytes/100 leukocytes in Blood by Automated count 2022-07-15 17:18:00 6.1 % F Eosinophils/100 leukocytes in Blood by Automated count 2022-07-15 17:18:00 6 % F Neutrophils/100 leukocytes in Blood by Automated count 2022-07-15 17:18:00 72.8 % F Lymphocytes/100 leukocytes in Blood by Automated count 2022-07-15 17:18:00 14.8 % F Monocytes [#/volume] in Blood by Automated count 2022-07-15 17:18:00 446.52 Cell/uL F 0.0-1100.0 Basophils [#/volume] in Blood by Automated count 2022-07-15 17:18:00 21.96 Cell/uL F 0.0-400.0 Eosinophils [#/volume] in Blood by Automated count 2022-07-15 17:18:00 439.2 Cell/uL F 0.0-700.0 Lymphocytes [#/volume] in Blood by Automated count 2022-07-15 17:18:00 1083.36 Cell/uL F 1100.0-4800.0 Basophils/100 leukocytes in Blood by Automated count 2022-07-15 17:17:58 0.3 % F Neutrophils [#/volume] in Blood by Automated count 2022-07-15 17:17:58 5328.96 Cell/uL F 2000.0-8800.0 Leukocytes [#/volume] in Blood by Automated count 2022-07-15 17:17:58 7.3 x 10^3 cells/uL F 4.5-11.0 Eosinophils/100 leukocytes in Blood by Automated count 2022-06-08 02:43:47 7.7 % F Basophils/100 leukocytes in Blood by Automated count 2022-06-08 02:43:47 0.6 % F Monocytes/100 leukocytes in Blood by Automated count 2022-06-08 02:43:47 5.5 % F Neutrophils/100 leukocytes in Blood by Automated count 2022-06-08 02:43:47 74.3 % F Lymphocytes/100 leukocytes in Blood by Automated count 2022-06-08 02:43:47 11.8 % F Monocytes [#/volume] in Blood by Automated count 2022-06-08 02:43:47 332.75 Cell/uL F 0.0-1100.0 Basophils [#/volume] in Blood by Automated count 2022-06-08 02:43:47 36.3 Cell/uL F 0.0-400.0 Eosinophils [#/volume] in Blood by Automated count 2022-06-08 02:43:47 465.85 Cell/uL F 0.0-700.0 Lymphocytes [#/volume] in Blood by Automated count 2022-06-08 02:43:47 713.9 Cell/uL F 1100.0-4800.0 Neutrophils [#/volume] in Blood by Automated count 2022-06-08 02:43:47 4495.15 Cell/uL F 2000.0-8800.0 Leukocytes [#/volume] in Blood by Automated count 2022-06-08 02:43:47 6 x 10^3 cells/uL F 4.5-11.0 Basophils/100 leukocytes in Blood by Automated count 2022-06-08 02:43:47 0.6 % F Neutrophils/100 leukocytes in Blood by Automated count 2022-06-08 02:43:47 74.3 % F Monocytes/100 leukocytes in Blood by Automated count 2022-06-08 02:43:47 5.5 % F Lymphocytes/100 leukocytes in Blood by Automated count 2022-06-08 02:43:47 11.8 % F Eosinophils/100 leukocytes in Blood by Automated count 2022-06-08 02:43:47 7.7 % F Leukocytes [#/volume] in Blood by Automated count 2022-06-08 02:43:47 6 x 10^3 cells/uL F 4.5-11.0 Neutrophils [#/volume] in Blood by Automated count 2022-06-08 02:43:47 4495.15 Cell/uL F 2000.0-8800.0 Lymphocytes [#/volume] in Blood by Automated count 2022-06-08 02:43:47 713.9 Cell/uL F 1100.0-4800.0 Monocytes [#/volume] in Blood by Automated count 2022-06-08 02:43:47 332.75 Cell/uL F 0.0-1100.0 Basophils [#/volume] in Blood by Automated count 2022-06-08 02:43:47 36.3 Cell/uL F 0.0-400.0 Eosinophils [#/volume] in Blood by Automated count 2022-06-08 02:43:47 465.85 Cell/uL F 0.0-700.0 MineralBone Disorder Description Draw Date Result/Unit Status Ref Range Result Comments Alkaline phosphatase [Enzymatic activity/volume] in Serum or Plasma 2025-02-07 15:19:16 98 U/L F 46.0-116.0 CA CORRECTED 2025-01-29 06:23:57 10 mg/dL F Calcium [Mass/volume] in Serum or Plasma 2025-01-29 06:19:00 9.8 mg/dL F 8.7-10.4 CA CORRECTED 2025-01-25 08:09:34 10.5 mg/dL F CA/PHOS PRODUCT 2025-01-25 08:05:26 46.4 Calc F 21.0-53.0 CA*PO4 CORRCTD 2025-01-25 08:05:26 47.4 Calc F 21.0-53.0 Calcium [Mass/volume] in Serum or Plasma 2025-01-25 07:05:36 10.3 mg/dL F 8.7-10.4 Phosphate [Mass/volume] in Serum or Plasma 2025-01-24 22:00:13 4.5 mg/dL F 2.4-5.1 Parathyrin.intact [Mass/volume] in Serum or Plasma 2025-01-24 20:08:15 28 pg/mL F 18.0-80.0 CA CORRECTED 2025-01-11 03:13:46 10.1 mg/dL F Calcium [Mass/volume] in Serum or Plasma 2025-01-11 03:06:57 9.9 mg/dL F 8.7-10.4 Alkaline phosphatase [Enzymatic activity/volume] in Serum or Plasma 2025-01-10 15:36:17 105 U/L F 46.0-116.0 Parathyrin.intact [Mass/volume] in Serum or Plasma 2024-12-28 21:15:25 27 pg/mL F 18.0-80.0 CA CORRECTED 2024-12-28 16:00:44 10.5 mg/dL F CA/PHOS PRODUCT 2024-12-28 15:59:02 44.3 Calc F 21.0-53.0 CA*PO4 CORRCTD 2024-12-28 15:59:02 45 Calc F 21.0-53.0 Calcium [Mass/volume] in Serum or Plasma 2024-12-28 15:51:08 10.3 mg/dL F 8.7-10.4 Phosphate [Mass/volume] in Serum or Plasma 2024-12-28 07:04:17 4.3 mg/dL F 2.4-5.1 Alkaline phosphatase [Enzymatic activity/volume] in Serum or Plasma 2024-12-13 22:44:20 107 U/L F 46.0-116.0 Alkaline phosphatase [Enzymatic activity/volume] in Serum or Plasma 2024-12-13 22:44:20 107 U/L F 46.0-116.0 CA CORRECTED 2024-12-07 01:16:13 9.8 mg/dL F CA*PO4 CORRCTD 2024-12-07 01:13:55 53.7 Calc F 21.0-53.0 CA/PHOS PRODUCT 2024-12-07 01:13:55 52.8 Calc F 21.0-53.0 Calcium [Mass/volume] in Serum or Plasma 2024-12-07 01:03:35 9.6 mg/dL F 8.7-10.4 Phosphate [Mass/volume] in Serum or Plasma 2024-12-06 20:43:19 5.5 mg/dL F 2.4-5.1 Parathyrin.intact [Mass/volume] in Serum or Plasma 2024-12-06 20:30:17 45 pg/mL F 18.0-80.0 CA*PO4 CORRCTD 2024-12-01 13:02:28 F Recollect - Shipping temp out of range,Recollect - Shipping temp out of range,Unable to Calculate. CA/PHOS PRODUCT 2024-12-01 13:02:28 F Unable to Calculate.,Recollec t - Shipping temp out of range,Recollect - Shipping temp out of range CA/PHOS PRODUCT 2024-12-01 13:02:28 F Unable to Calculate.,Recollec t - Shipping temp out of range CA*PO4 CORRCTD 2024-12-01 13:02:28 F Unable to Calculate.,Recollec t - Shipping temp out of range Calcium [Mass/volume] in Serum or Plasma 2024-12-01 13:01:30 F Recollect - Shipping temp out of range,Recollect - Shipping temp out of range Phosphate [Mass/volume] in Serum or Plasma 2024-12-01 13:01:30 F Recollect - Shipping temp out of range,Recollect - Shipping temp out of range Phosphate [Mass/volume] in Serum or Plasma 2024-12-01 13:01:30 F Recollect - Shipping temp out of range Calcium [Mass/volume] in Serum or Plasma 2024-12-01 13:01:30 F Recollect - Shipping temp out of range Parathyrin.intact [Mass/volume] in Serum or Plasma 2024-12-01 12:58:16 F Recollect - Shipping temp out of range,Recollect - Shipping temp out of range Parathyrin.intact [Mass/volume] in Serum or Plasma 2024-12-01 12:58:16 F Recollect - Shipping temp out of range Alkaline phosphatase [Enzymatic activity/volume] in Serum or Plasma 2024-11-09 03:00:16 101 U/L F 46.0-116.0 Alkaline phosphatase [Enzymatic activity/volume] in Serum or Plasma 2024-11-09 03:00:16 101 U/L F 46.0-116.0 CA CORRECTED 2024-10-26 07:36:10 9.8 mg/dL F CA CORRECTED 2024-10-26 07:36:10 9.8 mg/dL F CA/PHOS PRODUCT 2024-10-26 07:34:40 40.9 Calc F 21.0-53.0 CA*PO4 CORRCTD 2024-10-26 07:34:40 42.2 Calc F 21.0-53.0 CA*PO4 CORRCTD 2024-10-26 07:34:40 42.2 Calc F 21.0-53.0 CA/PHOS PRODUCT 2024-10-26 07:34:40 40.9 Calc F 21.0-53.0 Calcium [Mass/volume] in Serum or Plasma 2024-10-26 07:12:01 9.5 mg/dL F 8.7-10.4 Calcium [Mass/volume] in Serum or Plasma 2024-10-26 07:12:01 9.5 mg/dL F 8.7-10.4 Phosphate [Mass/volume] in Serum or Plasma 2024-10-26 03:17:22 4.3 mg/dL F 2.4-5.1 Phosphate [Mass/volume] in Serum or Plasma 2024-10-26 03:17:22 4.3 mg/dL F 2.4-5.1 Parathyrin.intact [Mass/volume] in Serum or Plasma 2024-10-25 16:11:14 52 pg/mL F 18.0-80.0 Parathyrin.intact [Mass/volume] in Serum or Plasma 2024-10-25 16:11:14 52 pg/mL F 18.0-80.0 Parathyrin.intact [Mass/volume] in Serum or Plasma 2024-10-05 19:49:59 41 pg/mL F 18.0-80.0 Parathyrin.intact [Mass/volume] in Serum or Plasma 2024-10-05 19:49:59 41 pg/mL F 18.0-80.0 Parathyrin.intact [Mass/volume] in Serum or Plasma 2024-09-26 17:31:57 63 pg/mL F 18.0-80.0 Parathyrin.intact [Mass/volume] in Serum or Plasma 2024-09-26 17:31:57 63 pg/mL F 18.0-80.0 Parathyrin.intact [Mass/volume] in Serum or Plasma 2024-09-26 17:31:57 63 pg/mL F 18.0-80.0 CA CORRECTED 2024-09-25 06:55:51 9.3 mg/dL F CA CORRECTED 2024-09-25 06:55:51 9.3 mg/dL F CA CORRECTED 2024-09-25 06:55:51 9.3 mg/dL F CA*PO4 CORRCTD 2024-09-25 06:52:41 46.6 Calc F 21.0-53.0 CA/PHOS PRODUCT 2024-09-25 06:52:41 45 Calc F 21.0-53.0 CA/PHOS PRODUCT 2024-09-25 06:52:41 45 Calc F 21.0-53.0 CA*PO4 CORRCTD 2024-09-25 06:52:41 46.6 Calc F 21.0-53.0 CA/PHOS PRODUCT 2024-09-25 06:52:41 45 Calc F 21.0-53.0 CA*PO4 CORRCTD 2024-09-25 06:52:41 46.6 Calc F 21.0-53.0 Phosphate [Mass/volume] in Serum or Plasma 2024-09-25 06:01:22 5 mg/dL F 2.4-5.1 Calcium [Mass/volume] in Serum or Plasma 2024-09-25 06:01:22 9 mg/dL F 8.7-10.4 Calcium [Mass/volume] in Serum or Plasma 2024-09-25 06:01:22 9 mg/dL F 8.7-10.4 Phosphate [Mass/volume] in Serum or Plasma 2024-09-25 06:01:22 5 mg/dL F 2.4-5.1 Calcium [Mass/volume] in Serum or Plasma 2024-09-25 06:01:22 9 mg/dL F 8.7-10.4 Phosphate [Mass/volume] in Serum or Plasma 2024-09-25 06:01:22 5 mg/dL F 2.4-5.1 25-Hydroxyvitamin D3+25-Hydroxyvitamin D2 [Mass/volume] in Serum or Plasma 2024-09-25 01:17:29 75.3 ng/mL F 25-Hydroxyvitamin D3+25-Hydroxyvitamin D2 [Mass/volume] in Serum or Plasma 2024-09-25 01:17:29 75.3 ng/mL F 25-Hydroxyvitamin D3+25-Hydroxyvitamin D2 [Mass/volume] in Serum or Plasma 2024-09-25 01:17:29 75.3 ng/mL F Alkaline phosphatase [Enzymatic activity/volume] in Serum or Plasma 2024-09-25 01:03:18 88 U/L F 46.0-116.0 Alkaline phosphatase [Enzymatic activity/volume] in Serum or Plasma 2024-09-25 01:03:18 88 U/L F 46.0-116.0 Alkaline phosphatase [Enzymatic activity/volume] in Serum or Plasma 2024-09-25 01:03:18 88 U/L F 46.0-116.0 25-Hydroxyvitamin D3+25-Hydroxyvitamin D2 [Mass/volume] in Serum or Plasma 2024-09-23 13:43:18 81.6 ng/mL F 25-Hydroxyvitamin D3+25-Hydroxyvitamin D2 [Mass/volume] in Serum or Plasma 2024-09-23 13:43:18 81.6 ng/mL F 25-Hydroxyvitamin D3+25-Hydroxyvitamin D2 [Mass/volume] in Serum or Plasma 2024-09-23 13:43:18 81.6 ng/mL F CA CORRECTED 2024-09-23 07:11:16 9.5 mg/dL F CA CORRECTED 2024-09-23 07:11:16 9.5 mg/dL F CA CORRECTED 2024-09-23 07:11:16 9.5 mg/dL F CA*PO4 CORRCTD 2024-09-23 07:09:01 51.1 Calc F 21.0-53.0 CA/PHOS PRODUCT 2024-09-23 07:09:01 50.2 Calc F 21.0-53.0 CA/PHOS PRODUCT 2024-09-23 07:09:01 50.2 Calc F 21.0-53.0 CA*PO4 CORRCTD 2024-09-23 07:09:01 51.1 Calc F 21.0-53.0 CA*PO4 CORRCTD 2024-09-23 07:09:01 51.1 Calc F 21.0-53.0 CA/PHOS PRODUCT 2024-09-23 07:09:01 50.2 Calc F 21.0-53.0 Phosphate [Mass/volume] in Serum or Plasma 2024-09-23 06:11:36 5.4 mg/dL F 2.4-5.1 Calcium [Mass/volume] in Serum or Plasma 2024-09-23 06:11:36 9.3 mg/dL F 8.7-10.4 Calcium [Mass/volume] in Serum or Plasma 2024-09-23 06:11:36 9.3 mg/dL F 8.7-10.4 Phosphate [Mass/volume] in Serum or Plasma 2024-09-23 06:11:36 5.4 mg/dL F 2.4-5.1 Calcium [Mass/volume] in Serum or Plasma 2024-09-23 06:11:36 9.3 mg/dL F 8.7-10.4 Phosphate [Mass/volume] in Serum or Plasma 2024-09-23 06:11:36 5.4 mg/dL F 2.4-5.1 Alkaline phosphatase [Enzymatic activity/volume] in Serum or Plasma 2024-09-23 05:40:24 89 U/L F 46.0-116.0 Alkaline phosphatase [Enzymatic activity/volume] in Serum or Plasma 2024-09-23 05:40:24 89 U/L F 46.0-116.0 Alkaline phosphatase [Enzymatic activity/volume] in Serum or Plasma 2024-09-23 05:40:24 89 U/L F 46.0-116.0 Parathyrin.intact [Mass/volume] in Serum or Plasma 2024-09-22 11:31:29 F CANCELED - TEST CANCELED Parathyrin.intact [Mass/volume] in Serum or Plasma 2024-09-22 11:31:29 F CANCELED - TEST CANCELED,CANCELED - TEST CANCELED Parathyrin.intact [Mass/volume] in Serum or Plasma 2024-09-22 11:31:29 F CANCELED - TEST CANCELED Alkaline phosphatase [Enzymatic activity/volume] in Serum or Plasma 2024-08-09 15:19:24 89 U/L F 46.0-116.0 Alkaline phosphatase [Enzymatic activity/volume] in Serum or Plasma 2024-08-09 15:19:24 89 U/L F 46.0-116.0 CA CORRECTED 2024-07-26 19:33:27 9.2 mg/dL F CA CORRECTED 2024-07-26 19:33:27 9.2 mg/dL F CA/PHOS PRODUCT 2024-07-26 19:30:22 39.6 Calc F 21.0-53.0 CA*PO4 CORRCTD 2024-07-26 19:30:22 40.7 Calc F 21.0-53.0 CA*PO4 CORRCTD 2024-07-26 19:30:22 40.7 Calc F 21.0-53.0 CA/PHOS PRODUCT 2024-07-26 19:30:22 39.6 Calc F 21.0-53.0 Calcium [Mass/volume] in Serum or Plasma 2024-07-26 19:21:20 9 mg/dL F 8.7-10.4 Phosphate [Mass/volume] in Serum or Plasma 2024-07-26 19:21:20 4.4 mg/dL F 2.4-5.1 Phosphate [Mass/volume] in Serum or Plasma 2024-07-26 19:21:20 4.4 mg/dL F 2.4-5.1 Calcium [Mass/volume] in Serum or Plasma 2024-07-26 19:21:20 9 mg/dL F 8.7-10.4 Parathyrin.intact [Mass/volume] in Serum or Plasma 2024-07-26 15:33:18 70 pg/mL F 18.0-80.0 Parathyrin.intact [Mass/volume] in Serum or Plasma 2024-07-26 15:33:18 70 pg/mL F 18.0-80.0 Alkaline phosphatase [Enzymatic activity/volume] in Serum or Plasma 2024-07-12 15:15:19 94 U/L F 46.0-116.0 CA CORRECTED 2024-06-02 08:58:44 10 mg/dL F CA/PHOS PRODUCT 2024-06-02 08:56:23 50 Calc F 21.0-53.0 CA*PO4 CORRCTD 2024-06-02 08:56:23 51.2 Calc F 21.0-53.0 Calcium [Mass/volume] in Serum or Plasma 2024-06-02 06:58:47 9.8 mg/dL F 8.7-10.4 Phosphate [Mass/volume] in Serum or Plasma 2024-06-02 06:58:46 5.1 mg/dL F 2.4-5.1 Parathyrin.intact [Mass/volume] in Serum or Plasma 2024-06-01 04:32:15 47 pg/mL F 18.0-80.0 25-Hydroxyvitamin D3+25-Hydroxyvitamin D2 [Mass/volume] in Serum or Plasma 2023-10-15 18:16:57 65.8 ng/mL F 25-Hydroxyvitamin D3+25-Hydroxyvitamin D2 [Mass/volume] in Serum or Plasma 2023-10-15 18:16:57 65.8 ng/mL F Alkaline phosphatase [Enzymatic activity/volume] in Serum or Plasma 2023-10-15 15:37:40 93 U/L F 46.0-116.0 Alkaline phosphatase [Enzymatic activity/volume] in Serum or Plasma 2023-10-15 15:37:40 93 U/L F 46.0-116.0 Alkaline phosphatase [Enzymatic activity/volume] in Serum or Plasma 2023-02-10 22:26:35 78 U/L F 46.0-116.0 Alkaline phosphatase [Enzymatic activity/volume] in Serum or Plasma 2023-02-10 22:26:35 78 U/L F 46.0-116.0 CA CORRECTED 2023-01-14 06:37:02 9.9 mg/dL F Calcium [Mass/volume] in Serum or Plasma 2023-01-14 06:29:09 9.4 mg/dL F 8.7-10.4 Alkaline phosphatase [Enzymatic activity/volume] in Serum or Plasma 2023-01-14 02:33:39 77 U/L F 46.0-116.0 Alkaline phosphatase [Enzymatic activity/volume] in Serum or Plasma 2022-12-09 19:03:18 83 U/L F 46.0-116.0 Alkaline phosphatase [Enzymatic activity/volume] in Serum or Plasma 2022-11-11 18:05:21 75 U/L F 46.0-116.0 Alkaline phosphatase [Enzymatic activity/volume] in Serum or Plasma 2022-10-07 23:11:22 80 U/L F 46.0-116.0 Alkaline phosphatase [Enzymatic activity/volume] in Serum or Plasma 2022-10-07 23:11:22 80 U/L F 46.0-116.0 CA CORRECTED 2022-09-10 07:24:15 9.6 mg/dL F CA CORRECTED 2022-09-10 07:24:15 9.6 mg/dL F Calcium [Mass/volume] in Serum or Plasma 2022-09-10 06:40:07 9.1 mg/dL F 8.7-10.4 Calcium [Mass/volume] in Serum or Plasma 2022-09-10 06:40:07 9.1 mg/dL F 8.7-10.4 Alkaline phosphatase [Enzymatic activity/volume] in Serum or Plasma 2022-09-09 17:25:14 75 U/L F 46.0-116.0 Alkaline phosphatase [Enzymatic activity/volume] in Serum or Plasma 2022-09-09 17:25:14 75 U/L F 46.0-116.0 CA CORRECTED 2022-07-16 08:08:44 9.5 mg/dL F Calcium [Mass/volume] in Serum or Plasma 2022-07-16 06:43:33 9.2 mg/dL F 8.7-10.4 Alkaline phosphatase [Enzymatic activity/volume] in Serum or Plasma 2022-07-15 14:33:59 95 U/L F 46.0-116.0 CA CORRECTED 2022-06-08 02:45:53 8.7 mg/dL F CA CORRECTED 2022-06-08 02:45:53 8.7 mg/dL F CA/PHOS PRODUCT 2022-06-08 02:44:13 58.2 Calc F 21.0-53.0 CA*PO4 CORRCTD 2022-06-08 02:44:13 61.8 Calc F 21.0-53.0 CA/PHOS PRODUCT 2022-06-08 02:44:13 58.2 Calc F 21.0-53.0 CA*PO4 CORRCTD 2022-06-08 02:44:13 61.8 Calc F 21.0-53.0 Calcium [Mass/volume] in Serum or Plasma 2022-06-08 00:37:49 8.2 mg/dL F 8.7-10.4 Calcium [Mass/volume] in Serum or Plasma 2022-06-08 00:37:49 8.2 mg/dL F 8.7-10.4 Parathyrin.intact [Mass/volume] in Serum or Plasma 2022-06-07 22:03:42 110 pg/mL F 18.0-80.0 Parathyrin.intact [Mass/volume] in Serum or Plasma 2022-06-07 22:03:42 110 pg/mL F 18.0-80.0 25-Hydroxyvitamin D3+25-Hydroxyvitamin D2 [Mass/volume] in Serum or Plasma 2022-06-07 20:04:04 49.1 ng/mL F 30.0-100.0 25-Hydroxyvitamin D3+25-Hydroxyvitamin D2 [Mass/volume] in Serum or Plasma 2022-06-07 20:04:04 49.1 ng/mL F 30.0-100.0 Phosphate [Mass/volume] in Serum or Plasma 2022-06-07 17:33:43 7.1 mg/dL F 2.4-5.1 Alkaline phosphatase [Enzymatic activity/volume] in Serum or Plasma 2022-06-07 17:33:43 79 U/L F 46.0-116.0 Alkaline phosphatase [Enzymatic activity/volume] in Serum or Plasma 2022-06-07 17:33:43 79 U/L F 46.0-116.0 Phosphate [Mass/volume] in Serum or Plasma 2022-06-07 17:33:43 7.1 mg/dL F 2.4-5.1 CA CORRECTED F CA CORRECTED F Nutrition Description Draw Date Result/Unit Status Ref Range Result Comments Potassium [Moles/volume] in Serum or Plasma 2025-02-07 22:56:42 4.8 mEq/L F 3.5-5.1 A/G RATIO 2025-02-07 15:20:06 1.5 Calc F 1.0-2.5 GLOBULIN 2025-02-07 15:20:06 2.6 g/dL F 0.9-5.0 Albumin [Mass/volume] in Serum or Plasma by Bromocresol green (BCG) dye binding method 2025-02-07 15:19:16 3.8 g/dL F 3.2-4.8 Bicarbonate [Moles/volume] in Serum or Plasma 2025-02-07 15:19:16 26 mEq/L F 20.0-31.0 Glucose [Mass/volume] in Serum or Plasma 2025-02-07 15:19:16 373 mg/dL F 74.0-106.0 Lactate dehydrogenase [Enzymatic activity/volume] in Serum or Plasma 2025-02-07 15:19:16 157 U/L F 120.0-246.0 Protein [Mass/volume] in Serum or Plasma 2025-02-07 15:19:16 6.4 g/dL F 5.7-8.2 Potassium [Moles/volume] in Serum or Plasma 2025-01-25 07:05:36 5.2 mEq/L F 3.5-5.1 Potassium [Moles/volume] in Serum or Plasma 2025-01-11 03:06:57 4.4 mEq/L F 3.5-5.1 GLOBULIN 2025-01-10 15:37:16 2.9 g/dL F 0.9-5.0 A/G RATIO 2025-01-10 15:37:16 1.3 Calc F 1.0-2.5 Albumin [Mass/volume] in Serum or Plasma by Bromocresol green (BCG) dye binding method 2025-01-10 15:36:17 3.7 g/dL F 3.2-4.8 Bicarbonate [Moles/volume] in Serum or Plasma 2025-01-10 15:36:17 27 mEq/L F 20.0-31.0 Glucose [Mass/volume] in Serum or Plasma 2025-01-10 15:36:17 236 mg/dL F 74.0-106.0 Lactate dehydrogenase [Enzymatic activity/volume] in Serum or Plasma 2025-01-10 15:36:17 155 U/L F 120.0-246.0 Protein [Mass/volume] in Serum or Plasma 2025-01-10 15:36:17 6.6 g/dL F 5.7-8.2 Potassium [Moles/volume] in Serum or Plasma 2024-12-28 15:51:08 4.4 mEq/L F 3.5-5.1 Potassium [Moles/volume] in Serum or Plasma 2024-12-14 07:13:35 4.8 mEq/L F 3.5-5.1 Potassium [Moles/volume] in Serum or Plasma 2024-12-14 07:13:35 4.8 mEq/L F 3.5-5.1 GLOBULIN 2024-12-13 22:45:09 2.8 g/dL F 0.9-5.0 A/G RATIO 2024-12-13 22:45:09 1.4 Calc F 1.0-2.5 A/G RATIO 2024-12-13 22:45:09 1.4 Calc F 1.0-2.5 GLOBULIN 2024-12-13 22:45:09 2.8 g/dL F 0.9-5.0 Glucose [Mass/volume] in Serum or Plasma 2024-12-13 22:44:20 185 mg/dL F 74.0-106.0 Albumin [Mass/volume] in Serum or Plasma by Bromocresol green (BCG) dye binding method 2024-12-13 22:44:20 3.8 g/dL F 3.2-4.8 Lactate dehydrogenase [Enzymatic activity/volume] in Serum or Plasma 2024-12-13 22:44:20 150 U/L F 120.0-246.0 Protein [Mass/volume] in Serum or Plasma 2024-12-13 22:44:20 6.6 g/dL F 5.7-8.2 Bicarbonate [Moles/volume] in Serum or Plasma 2024-12-13 22:44:20 29 mEq/L F 20.0-31.0 Bicarbonate [Moles/volume] in Serum or Plasma 2024-12-13 22:44:20 29 mEq/L F 20.0-31.0 Albumin [Mass/volume] in Serum or Plasma by Bromocresol green (BCG) dye binding method 2024-12-13 22:44:20 3.8 g/dL F 3.2-4.8 Glucose [Mass/volume] in Serum or Plasma 2024-12-13 22:44:20 185 mg/dL F 74.0-106.0 Lactate dehydrogenase [Enzymatic activity/volume] in Serum or Plasma 2024-12-13 22:44:20 150 U/L F 120.0-246.0 Protein [Mass/volume] in Serum or Plasma 2024-12-13 22:44:20 6.6 g/dL F 5.7-8.2 Potassium [Moles/volume] in Serum or Plasma 2024-12-01 13:01:30 F Recollect - Shipping temp out of range,Recollect - Shipping temp out of range Potassium [Moles/volume] in Serum or Plasma 2024-12-01 13:01:30 F Recollect - Shipping temp out of range Potassium [Moles/volume] in Serum or Plasma 2024-11-09 06:20:08 5 mEq/L F 3.5-5.1 Potassium [Moles/volume] in Serum or Plasma 2024-11-09 06:20:08 5 mEq/L F 3.5-5.1 GLOBULIN 2024-11-09 03:01:23 2.7 g/dL F 0.9-5.0 A/G RATIO 2024-11-09 03:01:23 1.4 Calc F 1.0-2.5 GLOBULIN 2024-11-09 03:01:23 2.7 g/dL F 0.9-5.0 A/G RATIO 2024-11-09 03:01:23 1.4 Calc F 1.0-2.5 Bicarbonate [Moles/volume] in Serum or Plasma 2024-11-09 03:00:16 26 mEq/L F 20.0-31.0 Albumin [Mass/volume] in Serum or Plasma by Bromocresol green (BCG) dye binding method 2024-11-09 03:00:16 3.8 g/dL F 3.2-4.8 Glucose [Mass/volume] in Serum or Plasma 2024-11-09 03:00:16 182 mg/dL F 74.0-106.0 Lactate dehydrogenase [Enzymatic activity/volume] in Serum or Plasma 2024-11-09 03:00:16 171 U/L F 120.0-246.0 Protein [Mass/volume] in Serum or Plasma 2024-11-09 03:00:16 6.5 g/dL F 5.7-8.2 Albumin [Mass/volume] in Serum or Plasma by Bromocresol green (BCG) dye binding method 2024-11-09 03:00:16 3.8 g/dL F 3.2-4.8 Bicarbonate [Moles/volume] in Serum or Plasma 2024-11-09 03:00:16 26 mEq/L F 20.0-31.0 Glucose [Mass/volume] in Serum or Plasma 2024-11-09 03:00:16 182 mg/dL F 74.0-106.0 Lactate dehydrogenase [Enzymatic activity/volume] in Serum or Plasma 2024-11-09 03:00:16 171 U/L F 120.0-246.0 Protein [Mass/volume] in Serum or Plasma 2024-11-09 03:00:16 6.5 g/dL F 5.7-8.2 Potassium [Moles/volume] in Serum or Plasma 2024-10-26 07:12:01 4.5 mEq/L F 3.5-5.1 Potassium [Moles/volume] in Serum or Plasma 2024-10-26 07:12:01 4.5 mEq/L F 3.5-5.1 Potassium [Moles/volume] in Serum or Plasma 2024-10-14 07:05:58 4.1 mEq/L F 3.5-5.1 Potassium [Moles/volume] in Serum or Plasma 2024-10-14 07:05:58 4.1 mEq/L F 3.5-5.1 Potassium [Moles/volume] in Serum or Plasma 2024-09-25 06:01:22 4.1 mEq/L F 3.5-5.5 Potassium [Moles/volume] in Serum or Plasma 2024-09-25 06:01:22 4.1 mEq/L F 3.5-5.5 Potassium [Moles/volume] in Serum or Plasma 2024-09-25 06:01:22 4.1 mEq/L F 3.5-5.5 A/G RATIO 2024-09-25 01:15:37 1.3 Calc F 1.0-2.5 GLOBULIN 2024-09-25 01:15:37 2.8 g/dL F 0.9-5.0 A/G RATIO 2024-09-25 01:15:37 1.3 Calc F 1.0-2.5 GLOBULIN 2024-09-25 01:15:37 2.8 g/dL F 0.9-5.0 GLOBULIN 2024-09-25 01:15:37 2.8 g/dL F 0.9-5.0 A/G RATIO 2024-09-25 01:15:37 1.3 Calc F 1.0-2.5 Bicarbonate [Moles/volume] in Serum or Plasma 2024-09-25 01:03:18 28 mEq/L F 20.0-31.0 Glucose [Mass/volume] in Serum or Plasma 2024-09-25 01:03:18 237 mg/dL F 70.0-99.0 Protein [Mass/volume] in Serum or Plasma 2024-09-25 01:03:18 6.4 g/dL F 5.7-8.2 Albumin [Mass/volume] in Serum or Plasma by Bromocresol green (BCG) dye binding method 2024-09-25 01:03:18 3.6 g/dL F 3.4-4.8 Lactate dehydrogenase [Enzymatic activity/volume] in Serum or Plasma 2024-09-25 01:03:18 162 U/L F 120.0-246.0 Albumin [Mass/volume] in Serum or Plasma by Bromocresol green (BCG) dye binding method 2024-09-25 01:03:18 3.6 g/dL F 3.4-4.8 Bicarbonate [Moles/volume] in Serum or Plasma 2024-09-25 01:03:18 28 mEq/L F 20.0-31.0 Glucose [Mass/volume] in Serum or Plasma 2024-09-25 01:03:18 237 mg/dL F 70.0-99.0 Lactate dehydrogenase [Enzymatic activity/volume] in Serum or Plasma 2024-09-25 01:03:18 162 U/L F 120.0-246.0 Protein [Mass/volume] in Serum or Plasma 2024-09-25 01:03:18 6.4 g/dL F 5.7-8.2 Albumin [Mass/volume] in Serum or Plasma by Bromocresol green (BCG) dye binding method 2024-09-25 01:03:18 3.6 g/dL F 3.4-4.8 Bicarbonate [Moles/volume] in Serum or Plasma 2024-09-25 01:03:18 28 mEq/L F 20.0-31.0 Glucose [Mass/volume] in Serum or Plasma 2024-09-25 01:03:18 237 mg/dL F 70.0-99.0 Lactate dehydrogenase [Enzymatic activity/volume] in Serum or Plasma 2024-09-25 01:03:18 162 U/L F 120.0-246.0 Protein [Mass/volume] in Serum or Plasma 2024-09-25 01:03:18 6.4 g/dL F 5.7-8.2 GLOBULIN 2024-09-23 07:09:01 2.8 g/dL F 0.9-5.0 A/G RATIO 2024-09-23 07:09:01 1.4 Calc F 1.0-2.5 A/G RATIO 2024-09-23 07:09:01 1.4 Calc F 1.0-2.5 GLOBULIN 2024-09-23 07:09:01 2.8 g/dL F 0.9-5.0 A/G RATIO 2024-09-23 07:09:01 1.4 Calc F 1.0-2.5 GLOBULIN 2024-09-23 07:09:01 2.8 g/dL F 0.9-5.0 Potassium [Moles/volume] in Serum or Plasma 2024-09-23 06:11:36 4.5 mEq/L F 3.5-5.5 Potassium [Moles/volume] in Serum or Plasma 2024-09-23 06:11:36 4.5 mEq/L F 3.5-5.5 Potassium [Moles/volume] in Serum or Plasma 2024-09-23 06:11:36 4.5 mEq/L F 3.5-5.5 Lactate dehydrogenase [Enzymatic activity/volume] in Serum or Plasma 2024-09-23 05:40:24 175 U/L F 120.0-246.0 Bicarbonate [Moles/volume] in Serum or Plasma 2024-09-23 05:40:24 30 mEq/L F 20.0-31.0 Albumin [Mass/volume] in Serum or Plasma by Bromocresol green (BCG) dye binding method 2024-09-23 05:40:24 3.8 g/dL F 3.4-4.8 Protein [Mass/volume] in Serum or Plasma 2024-09-23 05:40:24 6.6 g/dL F 5.7-8.2 Glucose [Mass/volume] in Serum or Plasma 2024-09-23 05:40:24 168 mg/dL F 70.0-99.0 Albumin [Mass/volume] in Serum or Plasma by Bromocresol green (BCG) dye binding method 2024-09-23 05:40:24 3.8 g/dL F 3.4-4.8 Bicarbonate [Moles/volume] in Serum or Plasma 2024-09-23 05:40:24 30 mEq/L F 20.0-31.0 Glucose [Mass/volume] in Serum or Plasma 2024-09-23 05:40:24 168 mg/dL F 70.0-99.0 Lactate dehydrogenase [Enzymatic activity/volume] in Serum or Plasma 2024-09-23 05:40:24 175 U/L F 120.0-246.0 Protein [Mass/volume] in Serum or Plasma 2024-09-23 05:40:24 6.6 g/dL F 5.7-8.2 Bicarbonate [Moles/volume] in Serum or Plasma 2024-09-23 05:40:24 30 mEq/L F 20.0-31.0 Glucose [Mass/volume] in Serum or Plasma 2024-09-23 05:40:24 168 mg/dL F 70.0-99.0 Lactate dehydrogenase [Enzymatic activity/volume] in Serum or Plasma 2024-09-23 05:40:24 175 U/L F 120.0-246.0 Protein [Mass/volume] in Serum or Plasma 2024-09-23 05:40:24 6.6 g/dL F 5.7-8.2 Albumin [Mass/volume] in Serum or Plasma by Bromocresol green (BCG) dye binding method 2024-09-23 05:40:24 3.8 g/dL F 3.4-4.8 Potassium [Moles/volume] in Serum or Plasma 2024-08-10 01:01:55 5.3 mEq/L F 3.5-5.5 Potassium [Moles/volume] in Serum or Plasma 2024-08-10 01:01:55 5.3 mEq/L F 3.5-5.5 A/G RATIO 2024-08-09 15:20:22 1.2 Calc F 1.0-2.5 GLOBULIN 2024-08-09 15:20:22 2.9 g/dL F 0.9-5.0 A/G RATIO 2024-08-09 15:20:22 1.2 Calc F 1.0-2.5 GLOBULIN 2024-08-09 15:20:22 2.9 g/dL F 0.9-5.0 Protein [Mass/volume] in Serum or Plasma 2024-08-09 15:19:26 6.4 g/dL F 5.7-8.2 Protein [Mass/volume] in Serum or Plasma 2024-08-09 15:19:26 6.4 g/dL F 5.7-8.2 Albumin [Mass/volume] in Serum or Plasma by Bromocresol green (BCG) dye binding method 2024-08-09 15:19:24 3.5 g/dL F 3.4-4.8 Bicarbonate [Moles/volume] in Serum or Plasma 2024-08-09 15:19:24 27 mEq/L F 20.0-31.0 Glucose [Mass/volume] in Serum or Plasma 2024-08-09 15:19:24 368 mg/dL F 70.0-99.0 Lactate dehydrogenase [Enzymatic activity/volume] in Serum or Plasma 2024-08-09 15:19:24 172 U/L F 120.0-246.0 Lactate dehydrogenase [Enzymatic activity/volume] in Serum or Plasma 2024-08-09 15:19:24 172 U/L F 120.0-246.0 Bicarbonate [Moles/volume] in Serum or Plasma 2024-08-09 15:19:24 27 mEq/L F 20.0-31.0 Albumin [Mass/volume] in Serum or Plasma by Bromocresol green (BCG) dye binding method 2024-08-09 15:19:24 3.5 g/dL F 3.4-4.8 Glucose [Mass/volume] in Serum or Plasma 2024-08-09 15:19:24 368 mg/dL F 70.0-99.0 Potassium [Moles/volume] in Serum or Plasma 2024-07-26 19:21:20 4.4 mEq/L F 3.5-5.5 Potassium [Moles/volume] in Serum or Plasma 2024-07-26 19:21:20 4.4 mEq/L F 3.5-5.5 Potassium [Moles/volume] in Serum or Plasma 2024-07-13 06:53:32 5.3 mEq/L F 3.5-5.5 GLOBULIN 2024-07-12 15:16:08 2.8 g/dL F 0.9-5.0 A/G RATIO 2024-07-12 15:16:08 1.3 Calc F 1.0-2.5 Lactate dehydrogenase [Enzymatic activity/volume] in Serum or Plasma 2024-07-12 15:15:20 177 U/L F 120.0-246.0 Albumin [Mass/volume] in Serum or Plasma by Bromocresol green (BCG) dye binding method 2024-07-12 15:15:20 3.7 g/dL F 3.4-4.8 Glucose [Mass/volume] in Serum or Plasma 2024-07-12 15:15:20 177 mg/dL F 70.0-99.0 Bicarbonate [Moles/volume] in Serum or Plasma 2024-07-12 15:15:19 25 mEq/L F 20.0-31.0 Protein [Mass/volume] in Serum or Plasma 2024-07-12 15:15:19 6.5 g/dL F 5.7-8.2 Potassium [Moles/volume] in Serum or Plasma 2024-06-02 06:58:49 5.5 mEq/L F 3.5-5.5 Potassium [Moles/volume] in Serum or Plasma 2023-10-16 06:25:18 4.9 mEq/L F 3.5-5.5 Potassium [Moles/volume] in Serum or Plasma 2023-10-16 06:25:18 4.9 mEq/L F 3.5-5.5 A/G RATIO 2023-10-15 15:38:20 1.3 Calc F 1.0-2.5 GLOBULIN 2023-10-15 15:38:20 2.9 g/dL F 0.9-5.0 GLOBULIN 2023-10-15 15:38:20 2.9 g/dL F 0.9-5.0 A/G RATIO 2023-10-15 15:38:20 1.3 Calc F 1.0-2.5 Albumin [Mass/volume] in Serum or Plasma by Bromocresol green (BCG) dye binding method 2023-10-15 15:37:40 3.8 g/dL F 3.4-4.8 Bicarbonate [Moles/volume] in Serum or Plasma 2023-10-15 15:37:40 27 mEq/L F 20.0-31.0 Glucose [Mass/volume] in Serum or Plasma 2023-10-15 15:37:40 209 mg/dL F 70.0-99.0 Lactate dehydrogenase [Enzymatic activity/volume] in Serum or Plasma 2023-10-15 15:37:40 161 U/L F 120.0-246.0 Protein [Mass/volume] in Serum or Plasma 2023-10-15 15:37:40 6.7 g/dL F 5.7-8.2 Lactate dehydrogenase [Enzymatic activity/volume] in Serum or Plasma 2023-10-15 15:37:40 161 U/L F 120.0-246.0 Bicarbonate [Moles/volume] in Serum or Plasma 2023-10-15 15:37:40 27 mEq/L F 20.0-31.0 Albumin [Mass/volume] in Serum or Plasma by Bromocresol green (BCG) dye binding method 2023-10-15 15:37:40 3.8 g/dL F 3.4-4.8 Protein [Mass/volume] in Serum or Plasma 2023-10-15 15:37:40 6.7 g/dL F 5.7-8.2 Glucose [Mass/volume] in Serum or Plasma 2023-10-15 15:37:40 209 mg/dL F 70.0-99.0 A/G RATIO 2023-02-10 22:26:41 1.2 Calc F 1.0-2.5 GLOBULIN 2023-02-10 22:26:41 2.9 g/dL F 0.9-5.0 GLOBULIN 2023-02-10 22:26:41 2.9 g/dL F 0.9-5.0 A/G RATIO 2023-02-10 22:26:41 1.2 Calc F 1.0-2.5 Albumin [Mass/volume] in Serum or Plasma by Bromocresol green (BCG) dye binding method 2023-02-10 22:26:35 3.4 g/dL F 3.4-4.8 Bicarbonate [Moles/volume] in Serum or Plasma 2023-02-10 22:26:35 29 mEq/L F 20.0-31.0 Glucose [Mass/volume] in Serum or Plasma 2023-02-10 22:26:35 126 mg/dL F 70.0-99.0 Potassium [Moles/volume] in Serum or Plasma 2023-02-10 22:26:35 5 mEq/L F 3.5-5.5 Lactate dehydrogenase [Enzymatic activity/volume] in Serum or Plasma 2023-02-10 22:26:35 191 U/L F 120.0-246.0 Protein [Mass/volume] in Serum or Plasma 2023-02-10 22:26:35 6.3 g/dL F 5.7-8.2 Lactate dehydrogenase [Enzymatic activity/volume] in Serum or Plasma 2023-02-10 22:26:35 191 U/L F 120.0-246.0 Bicarbonate [Moles/volume] in Serum or Plasma 2023-02-10 22:26:35 29 mEq/L F 20.0-31.0 Albumin [Mass/volume] in Serum or Plasma by Bromocresol green (BCG) dye binding method 2023-02-10 22:26:35 3.4 g/dL F 3.4-4.8 Potassium [Moles/volume] in Serum or Plasma 2023-02-10 22:26:35 5 mEq/L F 3.5-5.5 Protein [Mass/volume] in Serum or Plasma 2023-02-10 22:26:35 6.3 g/dL F 5.7-8.2 Glucose [Mass/volume] in Serum or Plasma 2023-02-10 22:26:35 126 mg/dL F 70.0-99.0 GLOBULIN 2023-01-14 02:33:53 2.8 g/dL F 0.9-5.0 A/G RATIO 2023-01-14 02:33:53 1.2 Calc F 1.0-2.5 Lactate dehydrogenase [Enzymatic activity/volume] in Serum or Plasma 2023-01-14 02:33:39 178 U/L F 120.0-246.0 Bicarbonate [Moles/volume] in Serum or Plasma 2023-01-14 02:33:39 30 mEq/L F 20.0-31.0 Albumin [Mass/volume] in Serum or Plasma by Bromocresol green (BCG) dye binding method 2023-01-14 02:33:39 3.4 g/dL F 3.4-4.8 Potassium [Moles/volume] in Serum or Plasma 2023-01-14 02:33:39 5.4 mEq/L F 3.5-5.5 Protein [Mass/volume] in Serum or Plasma 2023-01-14 02:33:39 6.2 g/dL F 5.7-8.2 Glucose [Mass/volume] in Serum or Plasma 2023-01-14 02:33:39 277 mg/dL F 70.0-99.0 GLOBULIN 2022-12-09 19:03:42 2.8 g/dL F 0.9-5.0 A/G RATIO 2022-12-09 19:03:42 1.2 Calc F 1.0-2.5 Lactate dehydrogenase [Enzymatic activity/volume] in Serum or Plasma 2022-12-09 19:03:18 206 U/L F 120.0-246.0 Bicarbonate [Moles/volume] in Serum or Plasma 2022-12-09 19:03:18 28 mEq/L F 20.0-31.0 Albumin [Mass/volume] in Serum or Plasma by Bromocresol green (BCG) dye binding method 2022-12-09 19:03:18 3.4 g/dL F 3.4-4.8 Potassium [Moles/volume] in Serum or Plasma 2022-12-09 19:03:18 5.4 mEq/L F 3.5-5.5 Protein [Mass/volume] in Serum or Plasma 2022-12-09 19:03:18 6.2 g/dL F 5.7-8.2 Glucose [Mass/volume] in Serum or Plasma 2022-12-09 19:03:18 248 mg/dL F 70.0-99.0 GLOBULIN 2022-11-11 18:06:05 2.8 g/dL F 0.9-5.0 A/G RATIO 2022-11-11 18:06:05 1.2 Calc F 1.0-2.5 Lactate dehydrogenase [Enzymatic activity/volume] in Serum or Plasma 2022-11-11 18:05:21 206 U/L F 120.0-246.0 Bicarbonate [Moles/volume] in Serum or Plasma 2022-11-11 18:05:21 27 mEq/L F 20.0-31.0 Albumin [Mass/volume] in Serum or Plasma by Bromocresol green (BCG) dye binding method 2022-11-11 18:05:21 3.4 g/dL F 3.4-4.8 Potassium [Moles/volume] in Serum or Plasma 2022-11-11 18:05:21 5.7 mEq/L F 3.5-5.5 Protein [Mass/volume] in Serum or Plasma 2022-11-11 18:05:21 6.2 g/dL F 5.7-8.2 Glucose [Mass/volume] in Serum or Plasma 2022-11-11 18:05:21 109 mg/dL F 70.0-99.0 A/G RATIO 2022-10-07 23:11:35 1.3 Calc F 1.0-2.5 GLOBULIN 2022-10-07 23:11:35 2.6 g/dL F 0.9-5.0 A/G RATIO 2022-10-07 23:11:35 1.3 Calc F 1.0-2.5 GLOBULIN 2022-10-07 23:11:35 2.6 g/dL F 0.9-5.0 Albumin [Mass/volume] in Serum or Plasma by Bromocresol green (BCG) dye binding method 2022-10-07 23:11:22 3.5 g/dL F 3.4-4.8 Potassium [Moles/volume] in Serum or Plasma 2022-10-07 23:11:22 5.4 mEq/L F 3.5-5.5 Protein [Mass/volume] in Serum or Plasma 2022-10-07 23:11:22 6.1 g/dL F 5.7-8.2 Glucose [Mass/volume] in Serum or Plasma 2022-10-07 23:11:22 284 mg/dL F 70.0-99.0 Albumin [Mass/volume] in Serum or Plasma by Bromocresol green (BCG) dye binding method 2022-10-07 23:11:22 3.5 g/dL F 3.4-4.8 Bicarbonate [Moles/volume] in Serum or Plasma 2022-10-07 23:11:22 29 mEq/L F 20.0-31.0 Glucose [Mass/volume] in Serum or Plasma 2022-10-07 23:11:22 284 mg/dL F 70.0-99.0 Lactate dehydrogenase [Enzymatic activity/volume] in Serum or Plasma 2022-10-07 23:11:22 185 U/L F 120.0-246.0 Potassium [Moles/volume] in Serum or Plasma 2022-10-07 23:11:22 5.4 mEq/L F 3.5-5.5 Protein [Mass/volume] in Serum or Plasma 2022-10-07 23:11:22 6.1 g/dL F 5.7-8.2 Lactate dehydrogenase [Enzymatic activity/volume] in Serum or Plasma 2022-10-07 23:11:22 185 U/L F 120.0-246.0 Bicarbonate [Moles/volume] in Serum or Plasma 2022-10-07 23:11:22 29 mEq/L F 20.0-31.0 A/G RATIO 2022-09-09 17:25:19 1.2 Calc F 1.0-2.5 GLOBULIN 2022-09-09 17:25:19 2.8 g/dL F 0.9-5.0 A/G RATIO 2022-09-09 17:25:19 1.2 Calc F 1.0-2.5 GLOBULIN 2022-09-09 17:25:19 2.8 g/dL F 0.9-5.0 Albumin [Mass/volume] in Serum or Plasma by Bromocresol green (BCG) dye binding method 2022-09-09 17:25:14 3.4 g/dL F 3.4-4.8 Bicarbonate [Moles/volume] in Serum or Plasma 2022-09-09 17:25:14 29 mEq/L F 20.0-31.0 Lactate dehydrogenase [Enzymatic activity/volume] in Serum or Plasma 2022-09-09 17:25:14 197 U/L F 120.0-246.0 Potassium [Moles/volume] in Serum or Plasma 2022-09-09 17:25:14 5.3 mEq/L F 3.5-5.5 Glucose [Mass/volume] in Serum or Plasma 2022-09-09 17:25:14 288 mg/dL F 70.0-99.0 Protein [Mass/volume] in Serum or Plasma 2022-09-09 17:25:14 6.2 g/dL F 5.7-8.2 Lactate dehydrogenase [Enzymatic activity/volume] in Serum or Plasma 2022-09-09 17:25:14 197 U/L F 120.0-246.0 Bicarbonate [Moles/volume] in Serum or Plasma 2022-09-09 17:25:14 29 mEq/L F 20.0-31.0 Albumin [Mass/volume] in Serum or Plasma by Bromocresol green (BCG) dye binding method 2022-09-09 17:25:14 3.4 g/dL F 3.4-4.8 Potassium [Moles/volume] in Serum or Plasma 2022-09-09 17:25:14 5.3 mEq/L F 3.5-5.5 Protein [Mass/volume] in Serum or Plasma 2022-09-09 17:25:14 6.2 g/dL F 5.7-8.2 Glucose [Mass/volume] in Serum or Plasma 2022-09-09 17:25:14 288 mg/dL F 70.0-99.0 GLOBULIN 2022-07-15 14:34:26 2.7 g/dL F 0.9-5.0 A/G RATIO 2022-07-15 14:34:26 1.3 Calc F 1.0-2.5 Lactate dehydrogenase [Enzymatic activity/volume] in Serum or Plasma 2022-07-15 14:33:59 197 U/L F 120.0-246.0 Bicarbonate [Moles/volume] in Serum or Plasma 2022-07-15 14:33:59 31 mEq/L F 20.0-31.0 Albumin [Mass/volume] in Serum or Plasma by Bromocresol green (BCG) dye binding method 2022-07-15 14:33:59 3.6 g/dL F 3.4-4.8 Potassium [Moles/volume] in Serum or Plasma 2022-07-15 14:33:59 5.2 mEq/L F 3.5-5.5 Protein [Mass/volume] in Serum or Plasma 2022-07-15 14:33:59 6.3 g/dL F 5.7-8.2 Glucose [Mass/volume] in Serum or Plasma 2022-07-15 14:33:59 139 mg/dL F 70.0-99.0 VLDL-CHOL(CALC) 2022-06-07 17:34:50 22 mg/dL F 0.0-29.0 LDL-CHOLESTEROL 2022-06-07 17:34:50 97 mg/dL F 0.0-99.0 A/G RATIO 2022-06-07 17:34:50 1.3 Calc F 1.0-2.5 GLOBULIN 2022-06-07 17:34:50 2.6 g/dL F 0.9-5.0 CHOL/HDL RATIO 2022-06-07 17:34:50 5 Calc F 3.3-5.0 A/G RATIO 2022-06-07 17:34:50 1.3 Calc F 1.0-2.5 GLOBULIN 2022-06-07 17:34:50 2.6 g/dL F 0.9-5.0 LDL-CHOLESTEROL 2022-06-07 17:34:50 97 mg/dL F 0.0-99.0 VLDL-CHOL(CALC) 2022-06-07 17:34:50 22 mg/dL F 0.0-29.0 CHOL/HDL RATIO 2022-06-07 17:34:50 5 Calc F 3.3-5.0 Cholesterol [Mass/volume] in Serum or Plasma 2022-06-07 17:33:43 149 mg/dL F 0.0-199.0 Protein [Mass/volume] in Serum or Plasma 2022-06-07 17:33:43 112 mg/dL F 0.0-149.0 Lactate dehydrogenase [Enzymatic activity/volume] in Serum or Plasma 2022-06-07 17:33:43 212 U/L F 120.0-246.0 Bicarbonate [Moles/volume] in Serum or Plasma 2022-06-07 17:33:43 23 mEq/L F 20.0-31.0 Albumin [Mass/volume] in Serum or Plasma by Bromocresol green (BCG) dye binding method 2022-06-07 17:33:43 3.4 g/dL F 3.4-4.8 Potassium [Moles/volume] in Serum or Plasma 2022-06-07 17:33:43 5.9 mEq/L F 3.5-5.5 Cholesterol in HDL [Mass/volume] in Serum or Plasma 2022-06-07 17:33:43 30 mg/dL F 40.0-60.0 Protein [Mass/volume] in Serum or Plasma 2022-06-07 17:33:43 6 g/dL F 5.7-8.2 Glucose [Mass/volume] in Serum or Plasma 2022-06-07 17:33:43 118 mg/dL F 70.0-99.0 Albumin [Mass/volume] in Serum or Plasma by Bromocresol green (BCG) dye binding method 2022-06-07 17:33:43 3.4 g/dL F 3.4-4.8 Cholesterol [Mass/volume] in Serum or Plasma 2022-06-07 17:33:43 149 mg/dL F 0.0-199.0 Bicarbonate [Moles/volume] in Serum or Plasma 2022-06-07 17:33:43 23 mEq/L F 20.0-31.0 Glucose [Mass/volume] in Serum or Plasma 2022-06-07 17:33:43 118 mg/dL F 70.0-99.0 Lactate dehydrogenase [Enzymatic activity/volume] in Serum or Plasma 2022-06-07 17:33:43 212 U/L F 120.0-246.0 Potassium [Moles/volume] in Serum or Plasma 2022-06-07 17:33:43 5.9 mEq/L F 3.5-5.5 Protein [Mass/volume] in Serum or Plasma 2022-06-07 17:33:43 112 mg/dL F 0.0-149.0 Protein [Mass/volume] in Serum or Plasma 2022-06-07 17:33:43 6 g/dL F 5.7-8.2 Cholesterol in HDL [Mass/volume] in Serum or Plasma 2022-06-07 17:33:43 30 mg/dL F 40.0-60.0 Encounters No encounter information to report Immunizations Ordered Immunization Name Filled Immunization Name Date Status Comments Refusal Reason Influenza, high-dose, quadrivalent, PF 2025-02-20 16:48:00 Hep B, adult 2024-09-30 16:13:00 TST-PPD intradermal 2024-07-20 18:42:54 Influenza, high-dose, quadrivalent, PF 2024-02-29 19:33:01 TST-PPD intradermal 2023-07-20 18:30:00 Hep B, adult 2023-01-14 18:25:47 Hep B, adult 2022-12-12 18:27:30 Hep B, adult 2022-11-10 20:20:03 pneumococcal polysaccharide PPV23 2022-10-29 18:44:05 Hep B, adult 2022-07-28 20:05:05 TST-PPD intradermal 2022-07-21 20:25:56 TST-PPD intradermal 2022-06-11 21:17:16 pneumococcal polysaccharide PPV23 2021-01-28 05:00:00 Covid-19 Vaccination 2020-07-30 05:00:00 Covid-19 Vaccination 2020-07-09 06:00:00 Pneumococcal conjugate PCV 13 2017-03-03 05:00:00 Plan of Treatment Planned Activity Provider Planned Date Details Commen ts Diagnostic Test Pending [facility] 2024-10-16 05:00:00 Ferritin [Mass/volume] in Serum or Plasma [code = 2276-4] Future Scheduled Test [facility] 2025-03-18 05:00:00 Ferritin [Mass/volume] in Serum or Plasma [code = 2276-4] Diagnostic Test Pending [facility] 2023-06-18 07:25:39 Hemoglobin [Mass/volume] in Blood [code = 718-7] Diagnostic Test Pending [facility] 2023-02-15 05:00:00 Alanine aminotransferase [Enzymatic activity/volume] in Serum or Plasma [code = 1742-6] Diagnostic Test Pending [facility] 2022-06-05 17:24:06 25-Hydroxyvitamin D3+25-Hydroxyvitamin D2 [Mass/volume] in Serum or Plasma [code = 88348-0] Diagnostic Test Pending [facility] 2024-06-18 07:24:17 Ferritin [Mass/volume] in Serum or Plasma [code = 2276-4] Diagnostic Test [facility]ending [facility] 2022-06-05 17:23:59 Sodium [Moles/volume] in Serum or Plasma [code = 2951-2] Diagnostic Test Pending [facility] 2022-06-05 17:23:23 Potassium [Moles/volume] in Serum or Plasma [code = 2823-3] Diagnostic Test Pending [facility] 2022-06-05 17:19:58 Glucose [Mass/volume] in Serum or Plasma [code = 2345-7] Diagnostic Test Pending [facility] 2022-06-05 17:21:29 Hemoglobin A1c/Hemoglobin.total in Blood [code = 4548-4] Diagnostic Test Pending [facility] 2022-06-05 17:19:07 Aluminum [Mass/volume] in Serum or Plasma [code = 5574-9] Diagnostic Test Pending [facility] 2022-06-05 17:19:27 Creatinine [Mass/volume] in Serum or Plasma [code = 2160-0] Diagnostic Test Pending [facility] 2022-06-06 07:22:06 Parathyrin.intact [Mass/volume] in Serum or Plasma [code = 2731-8] Diagnostic Test Pending [facility] 2025-01-23 15:59:16 In-Center Hemodialysis Treatment [code = BUL939] Diagnostic Test Pending [facility] 2024-07-30 05:00:00 In-Center Hemodialysis Treatment [code = NJG766] Diet Order [facility] June 18, 2022 Diet Calorie 25 kcal/kg Fluid Value 1000 mL/d Phosphorus Value 1000 mg/d Potassium Value 2000 mg/d Protein Value 1.4 gm/kg Sodium Value 2000 mg/d Calculated Weight 78 kg dietary_diet_modification Carb Controlle d;
--- OUTSIDE RECORDS SUMMARY | 2025-02-26 11:00 | XMS_ITS | Clinical Summary ---
Author Organization [facility] [address] Address [address] [place] [address] Care Team Providers Care Assembler Cl[employer] Sunglasses Name Role Phone Srikanth Hernandez MD Primary Care Prov ider Estiven Dubois MD Unavailable [phone] Rebecca Zuluaga NP Unavailable Mathew Plummer MD Unavailable [phone] Srikanth tSephens MD Unavailable [phone] Tootie Kraft NURSE EPIDEMIOLOGIST Unavailable [phone] Minoo Mcgowan MD PhD Unavailable Allergies Active Allergy Reactions Criticality Noted Date Comments Hydrocodone Itching,Rash Medium 04/28/2022 Sitagliptin Rash Medium 09/25/2021 Sulfa (Sulfonamide Antibiotics) Hives,Itching Medium 0 09/25/2021 Medications cholecalciferol (VITAMIN D-3) 2000 unit capsule Take 1 capsule (2,000 Units total) by mouth 2 (two) times a day Active ferrous sulfate 325 mg (65 mg of elemental iron) tablet Take 1 tablet (325 mg total) by mouth 2 (two) times a day Active Triphrocaps 1 mg capsule Take 1 capsule by mouth daily 2 Active Microlet Lancet misc USE TO TEST ONCE DAILY 2 Active OneTouch Ultra Test strip USE 1 STRIP TO CHECK GLUCOSE ONCE DAILY 2 Active OneTouch Ultra2 Meter misc USE TO CHECK GLUCOSE ONCE DAILY 2 Active glipiZIDE (GLUCOTROL) 5 mg tabletIndications :type 2 diabetes mellitus Take 1 tablet (5 mg total) by mouth daily 30 tablet 1 2 Active carvediloL (COREG) 12.5 mg tablet Take 1 tablet (12.5 mg total) by mouth 2 (two) times a day with meals Active loratadine 10 mg capsule Take 10 mg by mouth every other day Active oxygen 2 L/min as needed (at night) At night 3 Active acetaminophen (TYLENOL) 325 mg tabletIndications :Fever,Pain Take 2 tablets (650 mg total) by mouth every 4 (four) hours as needed for pain 4 Active coenzyme Q10 100 mg capsule Take 1 capsule (100 mg total) by mouth daily Active hydrALAZINE (APRESOLINE) 25 mg tablet Take by mouth 3 (three) times a day 4 Active furosemide (LASIX) 40 mg tablet Take 1 tablet (40 mg total) by mouth 2 (two) times a day 5 Active clopidogreL (PLAVIX) 75 mg tablet Take 1 tablet by mouth once daily 90 tablet 3 5 Active apixaban (Eliquis) 5 mg tabletIndications :Permanent atrial fibrillation (HCC) Take 1 tablet by mouth twice daily 180 tablet 3 5 Active rosuvastatin (CRESTOR) 10 mg tablet Take 1 tablet by mouth once daily 90 tablet 5 Active Active Problems Problem Noted Date Diagnosed Date Essential hypertension 08/25/2024 Assessment & Plan (08/25/2024 10:19 AM CDT): Impression: Chronic and stable. Plan: Continue Coreg, Lasix, hydralazine History of CVA (cerebrovascular accident) 2023 CVA (cerebral vascular accident) 12/31/2023 Assessment & Plan (01/04/2024 9:13 AM CDT): Patient presented to OSH with generalized weakness. -workup noted in carotid stenosis -SMART consult , neurology consult as above. Follow up in stroke clinic. - Rehab referrals. Carotid stenosis 12/29/2023 Assessment & Plan (01/04/2024 9:11 AM CDT): Presented to OSH with generalized weakness, worse on right side and intermittent right hand paresthesias. hCT without stroke. CTA head/neck- severe stenosis of L carotid artery. Patient transferred to [facility] for further evaluation and treatment. - Plavix has been held, last dose was 12/31. D/w Neurology 01/03: no restrictions on antiplatelets: resume Plavix 01/03 - Neuro consulted -- Brain MRI w/wo contrast: Acute infarcts in the left paramedian nicole. Multiple chronic infarcts and chronic microhemorrhages -- TTE w/ bubble: Dilated LV with mildly decreased segmental LV systolic function w/ estimated EF=49% and mild hypok. of inferior and inferolateral rubio. NEGATIVE bubble. Indeterminate diastolic function --OSH CTA: No acute intracranial abnormality - telemetry - carotid duplex: <50% stenosis in R internal carotid and >70% in L internal carotid - No surgical need, CEA is not indicated for area of stroke, level of carotid stenosis. - Cards consulted for risk stratification -> no further work up needed if OR was offered. Would ideally restart Plavix once able. Restart Plavix 01/03 - NM monitoring Q4 Coronary artery disease 07/07/2023 Assessment & Plan (01/05/2024 7:20 AM CDT): 07/07/23: s/p proximal LAD using 3 x 22 mm drug-eluting stent. Otherwise no significant obstructive Cad. - continue statin, coreg --talk to cards about if we can hold plavix -> ideally would restart once able. Resume Plavix 01/03 - Resume home Eliquis 01/04. 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 Patient denies any chest pain, palpitations, shortness of breath, lightheadedness headaches, nausea or vomiting. Patient reports he has not taken his blood pressure medication today. He declines presenting to the ED for evaluation. Plan: Blood pressure rechecked at 200/114. Patient reports a follow up appointment with his metalsmith helper on Thursday. Recommend patient to take blood pressure medication at home and monitor blood pressures at home. Also advised patient to notify primary care provider/metalsmith helper of elevated blood pressure for further management. -instructed patient persistent elevated blood pressure, with chest pain, palpitations, shortness of breath, headaches nausea or vomiting meeting to present to the emergency room for further evaluation. MICHELLE (acute kidney injury) 01/29/2022 Dehydration 01/15/2022 History of cardioversion 12/27/2021 Chronic combined systolic an d diastolic congestive heart failure 12/09/2021 Anemia due to chronic kidney disease 10/09/2021 History of COVID-19 10/08/2021 Paroxysmal atrial fibrillation 09/30/2021 Assessment & Plan (01/04/2024 9:13 AM CDT): - Hold home Eliquis - Continue coreg - Per neurology: plan to resume Eliquis 01/04. ESRD (end stage renal disease) on dialysis 09/30 Assessment & Plan (12/01/2024 4:37 PM CDT): Patient with significant increase in velocities throughout left brachial axillary AV graft compared to previous imaging. Fortunately this is asymptomatic. Will proceed with left arm AV fistulogram with possible intervention. Risks of the procedure including not limited to bleeding, infection, nerve injury, graft compromise communicated patient full understanding. Wished to proceed Assessment & Plan (08/25/2024 10:17 AM CDT): Impression: Patient is being dialyzed through a left brachial axillary AV graft without any issues. Audible bruit and palpable thrill noted on exam. Av duplex scan reveals patent stent and patent AV graft. Plan: Continue utilizing AV graft for dialysis as per Nephrology. -Patient to follow-up in 3 months for re-evaluation with repeat AV duplex scan. Encouraged patient to make a sooner appointment if there is any complications with dialysis. Assessment & Plan (03/31/2024 4:40 PM DISTRIBUTION ANALYST): Patient with increased velocity associated with left axillary stent, fortunately asymptomatic. Will plan for left upper extremity AV fistulogram with possible intervention. Risks of the procedure including but not limited to bleeding, infection, nerve injury, stroke, , myocardial infarction communicated patient full understanding. Wished to proceed Assessment & Plan (12/29/2023 10:36 AM CDT): - LUE AV fistula, dialyzes MWF at [facility] - Renal consult for inpatient HD Assessment & Plan (11/12/2023 3:06 PM CDT): Asymptomatic mid graft stenosis. Will proceed with left arm AV fistulogram with possible intervention. Risks of the procedure communicated to the patient with full understanding. He wishes to proceed. Assessment & Plan (01/06/2023 2:35 PM CDT): Impression: Patient has a left brachial axillary AV graft being utilized for dialysis without any complications. Audible bruit and palpable thrill noted on exam. Elevated velocities are noted to the axillary vein on AV scan. Plan: Recommend left upper extremity AV fistulogram with possible intervention. Risks of the procedure communicate with the patient to include bleeding, infection, injury, further surgery, limb loss and . Patient voices understanding of these risks and wishes to proceed. - Continue utilizing AV graft for dialysis as per nephrology until scheduled procedure. Assessment & Plan (04/14/2022 10:44 AM DISTRIBUTION ANALYST): Patient seen today for new access evaluation. Community Living Coach is Dr. Dubois. Previous vein mapping obtained in January shows a veins are not sizable for fistula. He will need to be scheduled for a graft creation. He is right arm dominant. Also have a cardiac history more need cardiac clearance. Discussed the procedure of a graft creation and answered all questions at this time. Plan: Set up for graft creation left upper extremity once we have cardiac clearance. Type 2 diabetes mellitus Assessment & Plan (08/25/2024 10:17 AM CDT): Impression: Chronic with good glucose control. Plan: Continue glipizide Assessment & Plan (01/01/2024 7:26 AM CDT): Home regimen: glipizide, hold while inpatient - Carb consistent diet when eating - SSI while inpatient Assessment & Plan (01/06/2023 2:35 PM CDT): Impression: Chronic with good glucose control. Plan: Continue glipizide Assessment & Plan (04/14/2022 10:41 AM DISTRIBUTION ANALYST): History of diabetes that is being controlled with diet and medications. Continue monitoring blood sugars carefully, following a diabetic diet and taking medications as her PCP. Lumbar vertebral fracture Hyperkalemia Resolved Problems Problem Noted Date Diagnosed Date Resolved Date Carotid artery stenosis, symptomatic, left 12/30/2023 01/01/2024 Abnormal stress test 06/18/2023 024 Anemia due to stage 4 chronic kidney disease 2 09/12/2022 Coronary atherosclerosis Encounters Date Type Department Care Team Description 12/15/2024 9:30 AM CDT - 12/15/2024 10:30 AM CDT Surgery [facility] [place] [address] Chaparro Stephens MD Dialysis Circuit Angiogram 12/15/2024 7:28 AM CDT - 12/15/2024 11:49 AM CDT Hospital Encounter [facility] [place] [address] Chaparro Stephens MD ESRD (end stage renal disease) on dialysis (HCC) Discharge Disposition: Discharge to home or self care 12/01/2024 8:27 AM CDT - 12/01/2024 11:59 PM CDT Hospital Encounter [facility] 2 Vascular [address] [facility] [place] [address] [place] [id number] ESRD (end stage renal disease) on dialysis (HCC); Other specified complication of vascular prosthetic devices, implants and grafts, initial encounter Discharge Disposition: Discharge to home or self care 12/01/2024 8:26 AM CDT - 12/01/2024 11:59 PM CDT Hospital Encounter [facility] at [facility] [address] [address] ESRD (end stage renal disease) on dialysis (HCC) (Primary Dx); Other specified complication of vascular prosthetic devices, implants and grafts, initial encounter; Essential hypertension; Paroxysmal atrial fibrillation (HCC) Discharge Disposition: Discharge to home or self care from Last 3 Months Immunizations Immunization Administration Dates Next Due Influenza, Quadrivalent, Hig h Dose, Preservative Free, Intrr 01/28/2021,01/31/2020 Pneumococcal Conjugate PCV 13 03/03/2017 Pneumococcal Polysaccharide PPV23 01/28/2021 Surgical History Surgery Date Site/Laterality Comments CATARACT EXTRACTION Bilateral CARDIOVERSION 12/16/2021 DIALYSIS FISTULA CREATION 04/28/2022 Left LUE brachial axillary AVG creation - Dr. Srikanth Stephens AV FISTULA REPAIR 09/23/2022 Left LUE AVG - DCB axillary vein - Dr. Srikanth Stephens AV FISTULA REPAIR 01/15/2023 Left LUE AVG - angioplasty and stenting axillary vein - Dr. Srikanth Stephens AV FISTULA REPAIR 12/03/2023 Left LUE AVG - angioplasty axillary vein - Dr. Srikanth Stephens AV FISTULA REPAIR 04/21/2024 Left LUE AVG - DCB axillary stent - Dr. Chaparro Stephens VASCULAR SURGERY PROCEDURE 12/15/2024 Left Procedure: Dialysis Circuit Angiogram; Surgeon: Chaparro Stephens MD; [facility]; Service: Vascular; Laterality: Left; Medical History Medical History Date Comments Chronic kidney disease stage 4-5 was told states Hypertension Diabetes mellitus Anemia Atrial fibrillation (HCC) Congestive heart failure (HCC) Family history of prostate problems Prostate cancer (HCC) 2010 47 radiati on tx Eczema Covid 2019, 08/2021 Cataract 2009 History of radiation therapy pro state Type 2 diabetes mellitus Hemodialysis patient m/w/f [facility] Family History Medical History Relation Name Comments Cancer Father Erickson Lung cancer Father Erickson Diabetes Maternal Grandmother Ayse Hypertension Mother Shayy Miscarriages / Stillbirths Mother Shayy Uterine cancer Sister Relation Name Status Comments Father Erickson Maternal Grandmother Ayse Mother Shayy Sister Social History Tobacco Use Types Packs/Day Years Used Date Smoking Tobacco: Never Smokeless Tobacco: Current Snuff, Chew Tobacco Cessation:Ready to Q uit: Not Asked; Counseling Given: Not Answered Social Connection and Isolation Panel Answer Date Recorded In a typical week, how many times do you talk on the phone with family, friends, or neighbors? More than three times a week 02/07/2022 How often do you get togethe r with friends or relatives? More than three times a week 02/07/2022 How often do you attend chur ch or nondenominational services? Never 02/07/2022 Do you belong to any clubs o r organizations such as roman catholic groups, unions, fraternal or athletic groups, or school groups? No 02/07/2022 How often do you attend meet ings of the clubs or organizations you belong to? Never 02/07/2022 Are you , , di vorced, , never , or living with a partner? 02/07/2022 AUDIT-C Answer Date Recorded Q1: How often do you have a drink containing alcohol? Never 04/21/2024 Q2: How many drinks containi ng alcohol do you have on a typical day when you are drinking? Patient does not drink Q3: How often do you have si x or more drinks on one occasion? Never 04/21/2024 Overall Financial Resource Strain (CARDIA) Answe r [...] place to sleep or slept in a chcf (including now)? No 02/07/2022 Personal Safety Answer Date Recorded Have you ever been in or are you currently in a harmful physical or emotional relationship or is someone making you feel afraid or unsafe? Denies 12/15/2024 Sex and Gender Information Value Date Recorded Sex Assigned at Not on file Legal Sex Male 6:58 PM DISTRIBUTION ANALYST Gender Identity Not on file Sexual Orientation Not on file Obstetrics History Last Filed Vital Signs Vital Sign Reading Time Taken Comments Blood Pressure 179/89 12/15/2024 11:00 AM CDT Pulse 80 12/15/2024 11:00 AM CDT Temperature 36.7 C (98.1 F) 12/01/2024 9:19 AM CDT Respiratory Rate 18 12/15/2024 11:00 AM CDT Oxygen Saturation 100% 12/15/2024 11:00 AM CDT Inhaled Oxygen Concentration - - Weight 80.9 kg (178 lb 5.6 oz) 12/15/2024 7:50 A M CDT Height 177.8 cm (5' 10) 12/01/2024 9:19 AM CDT Body Mass Index 25.59 12/01/2024 9:19 AM CDT Plan of Treatment Health Maintenance Due Date Last Done Comments Albumin Creatinine Ratio, Urine 1945 Dilated Eye Exam 1945 Foot Exam 1945 DTaP/Tdap/Td Vaccine (1 - Tdap) 08/15/1958 Zoster Vaccine (1 of 2) 08/15/1997 Well Visit 65+ 08/15/2012 Hemoglobin A1C 07/02/2024 12/31/2023, 12/16, 05/01/2022 Depression Screening 12/27/2024 12/28/2023 Covid-19 Vaccine (3 - 2024-2 6 season) 2025 07/30/2020, 07/09/2020 Influenza Vaccine (#1) 2025 , 01/28/2021, 01/31/2020 Lipid Panel 09/29/2025 09/29/2024, 0809/2023, 12/30/2023, Additional history exists Fall Risk Assessment 12/15/2025 12/15/2024 eGFR 12/15/2025 12/15/2024, 12/0 09/2023, 01/04/2024, Additional history exists Pneumococcal vaccine 65+ Completed 023, 01/28/2021, 03/03/2017 Hepatitis C Screening Completed 07/08/2023 Hepatitis B Screening Completed 09/30/2024 , 01/01/2024, 01/14/2023, Additional history exists Medical Devices Implanted Type Area Gi Technician Device Identifier Shelf Expiration Date Model / Serial / Lot [employer] Device Vascular Closure Femoral Artery Bioabsorbable Dual Method Vascade 6-7fr Collagen [id number] - [id number] Implanted:Qty: 1 on 07/07/2023 by Mathew Plummer MD at [facility] Collagen Left: Common Femoral Artery [employer] 02/25/2025 [id number] / / [id number] [employer] Sheffield Acuseal 4-7mm 45cm Taper Graft Vascular Sterile [id number] - [id number] - [id number] Implanted:Qty: 1 on 04/28/2022 by Srikanth Stephens MD at [facility] Graft Left: Arm Wl [employer] [id number] 05/19/2024 [id number] / [id number] / Medtronic Card Vasc Surgery 3.0 X 22mm [place] Rx Coronary Stent [id number] - [id number] Implanted:Qty: 1 on 07/07/2023 by Mathew Plummer MD at [facility] Stent Left: Circumflex Coronary Artery Medtronic Card Vasc Surgery 06/07/2025 [id number] / / [id number] Bard Peripheral Vascular Stent Graft Endovascular Arteriovenous [id number] Covera [id number] - [id number] Implanted:Qty: 1 on 01/15/2023 by Srikanth Stephens MD at [facility] Left: Arm Bard Peripheral Vascular 06/06/2024 [id number] / [id number] Procedure Name Priority Date/Time Associated Diagnosis Comments INTRO CATH DIALYSIS CIRCUIT DX ANGRPH FLUOR [id number] Routine 12/15/2024 10:01 AM CDT ESRD (end stage renal disease) on dialysis (HCC) EGFR STAT 12/15/2024 7:56 AM CDT DIFFERENTIAL AUTO STAT 12/15/2024 7:5 6 AM CDT PROTIME-INR STAT 12/15/2024 7:56 AM CDT BASIC METABOLIC PANEL STAT 12/15/2024 7:56 AM CDT CBC WITH AUTO DIFFERENTIAL STAT 12/15/2024 7:56 AM CDT US HEMODIALYSIS ACCESS Schedule Routine, Read Routine (OP Routine) 12/01/2024 9:31 AM CDT ESRD (end stage renal disease) on dialysis (HCC) Other specified complication of vascular prosthetic devices, implants and grafts, initial encounter POCT LIPID PANEL Routine 09/29/2024 12:1 7 PM CDT Paroxysmal atrial fibrillation (HCC) 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 Chaparro Stephens MD CV CARDIAC CATH PROCEDURES Final Result * (ABNORMAL) eGFR (12/15/2024 7:56 AM CDT) [facility] eGFR 15(L) >=60 mL/min/1. 73 m2 Comment: Interpretive Data Reference Interval Normal >/= 90 mL/min/1.73m2 Mildly decreased* 60 - 89 mL/min/1.73m2 Mildly to moderately decreased 45 - 59 mL/min/1.73m2 Moderately to severely decreased 30 - 44 mL/min/1.73m2 Severely decreased 15 - 29 mL/min/1.73m2 Kidney Failure < 15 mL/min/1.73m2 *Relative to young adult level Estimated glomerular filtration rate is determined by the 2020 CKD-EPI equation recommended by the National Kidney Foundation (A Unifying Approach to GFR Estimation: Recommendations of the NKF-ASK Task Force on Reassessing the Inclusion of Race in Diagnosing Kidney Disease, JASN 2020). The CKD-EPI equation should not be used for patients with unstable renal function and has not been validated in children and those over 70. Current interpretive data was last reviewed 2021. Blood 12/15/2024 7:56 AM CDT 12/15/2024 8:00 AM CDT us Chaparro Stephens MD LAB BLOOD ORDERABLES Final Resul t [facility] [address] [facility] Department [place] [address] * (ABNORMAL) Differential, auto (12/15/2024 7:56 AM CDT) [facility] Neutrophil abs 4.36 1.50 - 6.50 K/cumm Imm gran abs 0.02 0.00 - 0.10 K/cumm [facility] Lymphocyte abs 1.18 0.80 - 3.30 K/cumm [facility] Monocyte abs 0.60 0.20 - 0.80 K/cumm [facility] Eosinophil abs 0.55(H) 0.00 - 0.50 K/cumm [facility] Basophil abs 0.04 0.00 - 0.10 K/cumm [facility] Neutrophil pct 64.6 % [facility] Comment: Interpretive Data Percent cell count reference ranges are not reported, since discordance with absolute values may lead to misinterpretation of CBC data. Current Interpretive Data was last revised on 2017. Imm gran pct 0.3 % [facility] Comment: Interpretive Data Percent cell count reference ranges are not reported, since discordance with absolute values may lead to misinterpretation of CBC data. Current Interpretive Data was last revised on 2017. Lymphocyte pct 17.5 % [facility] Comment: Interpretive Data Percent cell count reference ranges are not reported, since discordance with absolute values may lead to misinterpretation of CBC data. Current Interpretive Data was last revised on 2017. Monocyte pct 8.9 % [facility] Comment: Interpretive Data Percent cell count reference ranges are not reported, since discordance with absolute values may lead to misinterpretation of CBC data. Current Interpretive Data was last revised on 2017. Eosinophil pct 8.1 % [facility] Comment: Interpretive Data Percent cell count reference ranges are not reported, since discordance with absolute values may lead to misinterpretation of CBC data. Current Interpretive Data was last revised on 2017. Basophil pct 0.6 % [facility] Comment: Interpretive Data Percent cell count reference ranges are not reported, since discordance with absolute values may lead to misinterpretation of CBC data. Current Interpretive Data was last revised on 2017. Blood 12/15/2024 7:56 AM CDT 12/15/2024 8:00 AM CDT us Chaparro Stephens MD LAB BLOOD ORDERABLES Final Resul t [facility] [address] [facility] Department [place] [address] * (ABNORMAL) CBC with auto differential (12/15/2024 7:56 AM CDT) WBC 6.75 3.80 - 9.90 K/cumm Hgb 10.0(L) 13.0 - 17.5 g/dL [facility] Hct 31.1(L) 38.9 - 50.3 % [facility] Plt 103(L) 150 - 400 K/cumm [facility] MPV 9.0(L) 9.1 - 12.3 fL [facility] RBC 3.39(L) 4.30 - 5.80 M/cumm [facility] MCV 91.7 81.3 - 96.4 fL [facility] MCH 29.5 27.1 - 33.3 pg [facility] MCHC 32.2(L) 32.3 - 35.7 g/dL [facility] RDW CV 15.8(H) 11.1 - 14.9 % [facility] RDW SD 52.7(H) 35.7 - 48.1 fL [facility] NRBC abs 0.00 0.00 - 0.01 K/cumm [facility] Blood 12/15/2024 7:56 AM CDT 12/15/2024 8:00 AM CDT Chaparro Stephens MD LAB BLOOD ORDERABLES Final Resul t Performing Organization Address [facility] de Phone Number [address] [place] [address] * (ABNORMAL) Protime-INR (12/15/2024 7:56 AM CDT) PT 14.70(H) 12.00 - 14.60 sec Comment:Ref Range High INR 1.14 0.90 - 1.20 [facility] Comment: Ref Range High Interpretive data Oral anticoagulant therapeutic ranges: Venous thromboembolism prophylaxis or treatment: 2.0-3.0 CARDIOLOGY Standard range: 2.0-3.0 High-intensity range: 2.5-3.5 Refer to indication-specific guidelines for appropriate target ranges for prosthetic heart valve replacement. Current interpretive data was last revised on 2019. Blood 12/15/2024 7:56 AM CDT 12/15/2024 8:00 AM CDT Chaparro Stephens MD LAB BLOOD ORDERABLES Final Resul t Performing Organization Address [facility] Co de Phone Number [place] [address] [facility] [place] [address] * (ABNORMAL) Basic metabolic panel (12/15/2024 7:56 AM CDT) Sodium 141 135 - 145 mmol/L Potassium, pl 3.9 3.3 - 4.9 mmol/L [facility] Chloride 98 97 - 110 mmol/L [facility] CO2 28 22 - 32 mmol/L [facility] Anion gap 15 2 - 15 mmol/L [facility] BUN 47(H) 6 - 25 mg/dL [facility] Creatinine 3.92(H) 0.80 - 1.30 mg/dL [facility] Glucose 104 70 - 199 mg/dL [facility] Comment: Interpretive Data Fasting glucose >/= 126 mg/dl is diagnostic for diabetes. Fasting is defined as no caloric intake for at least 8 hours. Fasting glucose between 100 mg/dl to 125 mg/dl is diagnostic of prediabetes. In a patient with classic symptoms of hyperglycemia or hyperglycemic crisis, a random glucose >/= 200 mg/dl is diagnostic for diabetes. In the absence of unequivocal hyperglycemia, results should be confirmed by repeat testing. The classification and Diagnosis of Diabetes Diabetes Care 2021; 46: S19-S40. Current interpretive data was last revised 2022. Calcium 10.1 8.5 - 10.3 mg/dL [facility] Blood 12/15/2024 7:56 AM CDT 12/15/2024 8:00 AM CDT us Chaparro Stephens MD LAB BLOOD ORDERABLES Final Resul t [facility] [address] [facility] Department [place] [address] * US Hemodialysis Access (12/01/2024 9:31 AM CDT) Anatomical Region Laterality Modality Vascular N/A Ultrasound 12/01/2024 8:40 AM CDT Narrative 12/01/2024 3:03 PM CDT Hemodialysis Access Duplex Report Patient Name: ABEL DE LEON F : 1945 (79y 3m) Gender: M Study Date: 12/01/2024 08:40:58 AM Crisis Clinician: Dianne Jacobsen Provider: CHAPARRO STEPHENS Provider: CHAPARRO STEPHENS PROCEDURES: Vascular Report: Color Duplex ultrasound with velocity measurements was performed of the left upper extremity access graft. Arterial Report: A non-invasive vascular imaging study of the left upper extremity stent was performed using B-mode ultrasound, color flow, and spectral Doppler. INDICATIONS: Dialysis graft complication. HISTORY: S/P DCBA LT AX V STENT 04/21/24 S/P BA LT AX V 12/03/23 S/P BA/STENT LT AX V 01/15/23 S/P LT BRACH-AX AVG 04/28/22. COMPARISONS: The previous exam was completed on 08/25/24. Compared to prior there is a velocity increase throughout the AVG. ACCESS GRAFT: Vessel Velocity Lt Location LT BRACH-AX AVG Lt [place] Artery 281.00 cm/sec Lt [place] Artery VF 1216.00 mL/min Lt Arterial Anast 593/277 cm/sec Lt Prx Graft 337/148 cm/sec Lt Prx-Mid Graft 380/204 cm/sec Lt Mid Graft 396/191 cm/sec Lt Mid Graft VF 2108.00 mL/min Lt Dst Graft 300/175 cm/sec Lt [place] Vein 120 AX V, 75 SUB V cm/sec LEFT STENT MEASUREMENTS: Vessel Velocity Location DIST AVG INTO AX V Lt Stent Prx [place] PSV 181.00 cm/sec Lt Stent Prx Attachment PSV 160.00 cm/sec Lt Stent Mid PSV 189.00 cm/sec Lt Stent Dst Attachment PSV 214.00 cm/sec Lt Stent Dst [place] PSV 208 AX V cm/sec FINDINGS: Study Quality: The study quality is adequate. Graft: AV graft is located in the left upper arm. Patent AV graft. Increased velocity at the proximal portion of the graft, at the mid portion of the graft and at the distal portion of the graft. Stent 1: The stent is located in the distal AVG into Ax vein. Patent upper extremity stent with no evidence of stenosis. CONCLUSIONS: 1. The AV graft is patent with no evidence of stenosis. Electronically Signed By: Srikanth Stephens MD 12/01/2024 2:57:23 PM CDT Procedure Note Srikanth Stephens MD - 12/01/2024 Hemodialysis Access Duplex Report Patient Name: ABEL DE LEON F : 1945 (79y 3m) Gender: M Study Date: 12/01/2024 08:40:58 AM Crisis Clinician: Dianne Jacobsen Provider: CHAPARRO STEPHENS Provider: CHAPARRO STEPHENS PROCEDURES: Vascular Report: Color Duplex ultrasound with velocity measurements wasperformed of the left upper extremity access graft. Arterial Report: A non-invasive vascular imaging study of the left upperextremity stent was performed using B-mode ultrasound, color flow, and spectral Doppler. INDICATIONS: Dialysis graft complication. HISTORY: S/P DCBA LT AX V STENT 04/21/24 S/P BA LT AX V 12/03/23 S/P BA/STENT LT AX V 01/15/23 S/P LT BRACH-AX AVG 04/28/22. COMPARISONS: The previous exam was completed on 08/25/24. Compared to prior there is avelocity increase throughout the AVG. ACCESS GRAFT: Vessel Velocity Lt Location LT BRACH-AX AVG Lt [place] Artery 281.00 cm/sec Lt [place] Artery VF 1216.00 mL/min Lt Arterial Anast 593/277 cm/sec Lt Prx Graft 337/148 cm/sec Lt Prx-Mid Graft 380/204 cm/sec Lt Mid Graft 396/191 cm/sec Lt Mid Graft VF 2108.00 mL/min Lt Dst Graft 300/175 cm/sec Lt [place] Vein 120 AX V, 75 SUB V cm/sec LEFT STENT MEASUREMENTS: Vessel Velocity Location DIST AVG INTO AX V Lt Stent Prx [place] PSV 181.00 cm/sec Lt Stent Prx Attachment PSV 160.00 cm/sec Lt Stent Mid PSV 189.00 cm/sec Lt Stent Dst Attachment PSV 214.00 cm/sec Lt Stent Dst [place] PSV 208 AX V cm/sec FINDINGS: Study Quality: The study quality is adequate. Graft: AV graft is located in the left upper arm. Patent AV graft.Increased velocity at the proximal portion of the graft, at the mid portion of the graft and atthe distal portion of the graft. Stent 1: The stent is located in the distal AVG into Ax vein. Patent upperextremity stent with no evidence of stenosis. CONCLUSIONS: 1. The AV graft is patent with no evidence of stenosis. Electronically Signed By: Srikanth Stephens MD 12/01/2024 2:57:23 PM CDT Chaparro Stephens MD [facility] [place] PROCEDURES Final Result * (ABNORMAL) POCT lipid panel (09/29/2024 12:17 PM CDT) [facility] Cholesterol, POC 100 <200 MG/DL HDL, POC 16(A) >=40 mg/dL Triglycerides, POC 103 <=149 mg/dL LDL Cholesterol POC 63.4 <=129 mg/dL Chol/HDL Ratio, POC 0 NONE Non-HDL Cholesterol, POC 0 NONE mg/dL Cholesterol Total, POC 100 30 - 199 mg/dL Capillary blood 09/29/2024 1 2:17 PM CDT us Mathew Plummer MD POINT OF CARE TEST O RDERABLES Final Result * (ABNORMAL) Hemoglobin A1c (12/30/2023 9:13 PM CDT) Hgb A1C 6.6(H) 4.0 - 5.6 % Estimated Average Glucose 143 mg/dL [facility] Comment: The ADA recommends reporting an estimated Average Glucose (eAG) with all Hemoglobin A1c results using the equation derived from a study of 507 normal and diabetic adults. Minority populations were underrepresented and children were not included. (Diabetes Care 2020; 43(S1): S66-S76). The eAG is not equivalent to a fasting glucose. Blood 12/30/2023 9:13 PM CDT 12/30/2023 9:54 PM CDT us Minoo Mcgowan MD PhD LAB BLOOD ORDERABLES F inal Result [facility] [address] [facility] Department [place] [address] * Hepatitis panel, acute Blood (07/08/2023 7:12 AM DISTRIBUTION ANALYST) Hep A IgM Nonreactive Nonreactive [facility]ELLE Comment: Interpretive Data: If Hep A IgM Ab is reported as Equivocal, a new sample should be drawn in two weeks for testing. Current interpretive data was last revised on 19. Hep B core IgM Nonreactive Nonreactive [facility]ELLE Comment: Interpretive Data If HepB Core IgM Ab is reported as Equivocal, a new sample should be drawn in two weeks for testing. Current interpretive data was last revised on 20. Hep C Ab Nonreactive Nonreactive [facility] Comment: Interpretive Data Nonreactive: Antibodies to HCV not detected. Does NOT exclude the possibility of recent exposure to HCV. Equivocal: Equivocal for HCV antibodies. Supplemental molecular testing will be automatically performed to determine infection status in accordance with current CDC screening recommendations. Reactive: Positive for HCV antibodies. This may represent current or past HCV infection. Supplemental molecular testing will be automatically performed to determine current infection status in accordance with current CDC screening recommendations. Interpretive data was last revised on 2019. HepBsAg Nonreactive Nonreactive [facility]LE Blood 07/08/2023 7:12 AM DISTRIBUTION ANALYST 07/08/2023 7:23 AM DISTRIBUTION ANALYST us Sameed Yecenia Ellsworth MD LAB MICROBIOLOGY - GENERA L ORDERABLES Final Result [facility] [id number] Department of Laboratories [place] [phone] from Last 3 Months or Most Recently Relevant to Health Maintenance Insurance [facility]ICARE ADVANTAGE [employer] Imaging CHOICE MEDICARE PPO IDPA [employer] CHOICE MEDICARE PPO IDPA [employer]IC[employer] ADVANTAGE Advance Directives For more information, please contact: [phone] * Full Code (Latest Code Status on File) Date Activated Date Inactivated Comments 12/15/2024 10:10 AM 12/15/2024 3:49 PM * Full Code Date Activated Date Inactivated Comments 12/30/2023 8:24 PM 01/06/2024 7:56 PM * Full Code Date Activated Date Inactivated Comments 07/07/2023 12:59 PM 07/08/2023 8:29 PM * Full Code Date Activated Date Inactivated Comments 04/30/2022 6:32 PM 05/03/2022 5:53 PM * Full Code Date Activated Date Inactivated Comments 01/29/2022 3:25 PM 02/10/2022 6:01 PM Care Teams Assembler Clip On Sunglasses Relationship Specialty Start Date End Date Srikanth Hernandez MD PCP - General Family Medicine 10/16/19 Estiven Dubois MD [address] [address] Consulting Physician Nephrology 10/23/21 Rebecca Zuluaga NP [address] [address] Nurse Practitioner Cardiology 12/27/21 [place] [address] [place] [address], [place] [address] Consulting Physician Interventional Cardiology 04/14/22 Srikanth Stephens MD [address] [facility] [address] [facility] [address] [place] [address] Surgeon Surgery 04/28/22 Tootie Kraft NP [address] [place] [address] Nurse Practitioner Medical Oncology 05/22/22 Minoo Mcgowan MD PhD [id number] [place] [address] Registered Nurse Vascular Surgery 01/06/24
--- OUTSIDE RECORDS SUMMARY | 2025-02-26 11:00 | XMS_ITS ---
Author Organization [facility] [address] Address [address] [place] [address] Care Team Providers Care Treatment Plant Operator Name Role Phone Srikanth Hernandez MD Primary Care Prov ider Estiven Dubois MD Unavailable [phone] Rebecca Zuluaga NP Unavailable Mathew Plummer MD Unavailable [phone] Srikanth Stephens MD Unavailable [phone] Tootie Kraft NP Unavailable [phone] Minoo Mcgowan MD PhD Unavailable Dialysis Access Sites Type Status Location Placement Date Removal Da te AV graft Active Left Upper Arm - Anterior 04/28/2022 Procedures Procedure Name Priority Date/Time Associated Diagnosis Comments INTRO CATH DIALYSIS CIRCUIT DX ANGRPH FLUOR 14148 Routine 12/15/2024 10:01 AM CDT ESRD (end stage renal disease) on dialysis (HCC) EGFR STAT 12/15/2024 7:56 AM CDT DIFFERENTIAL AUTO STAT 12/15/2024 7:5 6 AM CDT PROTIME-INR STAT 12/15/2024 7:56 AM CDT BASIC METABOLIC PANEL STAT 12/15/2024 7:56 AM CDT CBC WITH AUTO DIFFERENTIAL STAT 12/15/2024 7:56 AM CDT HEMODIALYSIS ACCESS Schedule Routine, Read Routine (OP [...] HEPATITIS PANEL, ACUTE STAT 07/08/2023 7:12 AM SLEEP TECH from Last 3 Months or Most Recently Relevant to Health Maintenance Allergies Active Allergy Reactions Criticality Noted Date [...] of L carotid artery. Patient transferred to [facility] for further evaluation and treatment. - Plavix [...] reports a follow up appointment with his baby counselor on Thursday. Recommend patient to take blood pressure medication at home and monitor blood pressures at home. Also advised patient to notify primary care provider/baby counselor of elevated blood pressure for further management. [...] dialysis. Assessment & Plan (03/31/2024 4:40 PM SLEEP TECH): Patient with increased velocity associated with left axillary stent, fortunately asymptomatic. Will plan for left upper extremity AV fistulogram with possible intervention. Risks of the procedure including but not limited to bleeding, infection, nerve injury, stroke, , myocardial infarction communicated patient full understanding. Wished to proceed Assessment & Plan (12/29/2023 10:36 AM CDT): - CAITLINE AV fistula, dialyzes MWF at [facility] - Renal consult for inpatient HD Assessment [...] procedure. Assessment & Plan (04/14/2022 10:44 AM SLEEP TECH): Patient seen today for new access evaluation. Jewel Hole Driller is Dr. Dubois. Previous vein mapping obtained [...] glipizide Assessment & Plan (04/14/2022 10:41 AM SLEEP TECH): History of diabetes that is being controlled with diet and medications. Continue monitoring blood sugars carefully, following a diabetic diet and taking medications as her PCP. Lumbar vertebral fracture Hyperkalemia Immunizations Immunization Administration Dates Next Due Influenza, Quadrivalent, Hig h Dose, Preservative Free, Intrr 01/28/2021,01/31/2020 Pneumococcal Conjugate PCV 13 03/03/2017 Pneumococcal Polysaccharide PPV23 01/28/2021 Social History Tobacco Use Types Packs/Day Years [...] 02/07/2022 How often do you attend chur or jain services? Never 02/07/2022 Do you belong to any clubs o r organizations such as episcopal groups, unions, fraternal or athletic groups, or [...] place to sleep or slept in a long term (including now)? No 02/07/2022 Personal Safety Answer Date Recorded Have you ever been in or are you currently in a harmful physical or emotional relationship or is someone making you feel afraid or unsafe? Denies 12/15/2024 Sex and Gender Information Value Date Recorded Sex Assigned at Not on file Legal Sex Male 6:58 PM SLEEP TECH Gender Identity Not on file Sexual Orientation [...] Mass Index 25.59 12/01/2024 9:19 AM CDT Results * INTRO CATH DIALYSIS CIRCUIT DX ANGRPH FLUOR 07310 (12/15/2024 10:01 AM CDT) Anatomical Region Laterality Modality X-Ray Angiograph y Narrative 12/15/2024 10:02 AM CDT Please see OpNote for result. Chaparro Stephens MD CV CARDIAC CATH PROCEDURES Final Result * (ABNORMAL) eGFR (12/15/2024 7:56 AM CDT) eGFR 15(L) >=60 mL/min/1. 73 m2 Comment: [...] MD LAB BLOOD ORDERABLES Final Resul t MICHAELLE [address] [facility] Department of Laboratories [place], [place] [id number] * (ABNORMAL) Differential, auto (12/15/2024 7:56 AM CDT) Neutrophil abs 4.36 1.50 - 6.50 K/cumm Imm gran abs 0.02 0.00 - 0.10 K/cumm [facility] Lymphocyte abs 1.18 0.80 - 3.30 K/cumm [...] MD LAB BLOOD ORDERABLES Final Resul t [facility] ALICEA [address] [facility] Department [place] [address] * (ABNORMAL) CBC with auto differential (12/15/2024 [...] Final Resul t [facility] [address] [facility] Department [place] [address] * (ABNORMAL) Protime-INR (12/15/2024 7:56 AM CDT) [...] MD LAB BLOOD ORDERABLES Final Resul t [facility] ALICEA [address] [facility] [place] [address] * (ABNORMAL) Basic metabolic panel (12/15/2024 7:56 [...] MD LAB BLOOD ORDERABLES Final Resul t [facility] [address] [facility] Department of [employer] [place] [address] * US Hemodialysis Access (12/01/2024 9:31 AM CDT) Anatomical Region Laterality Modality Vascular N/A Ultrasound 12/01/2024 8:40 AM CDT Narrative 12/01/2024 3:03 PM CDT Hemodialysis Access Duplex Report Patient Name: ABEL DE LEON F : 1945 (79y 3m) Gender: M Study Date: 12/01/2024 08:40:58 AM Vp Marketing Services And Skin: Dianne Jacobsen Provider: CHAPARRO STEPHENS Provider: CHAPARRO [...] Velocity Lt Location LT BRACH-AX AVG Lt [place] Artery 281.00 cm/sec Lt [place] Artery VF 1216.00 mL/min Lt Arterial Anast 593/277 cm/sec Lt Prx Graft 337/148 cm/sec Lt Prx-Mid Graft 380/204 cm/sec Lt Mid Graft 396/191 cm/sec Lt Mid Graft VF 2108.00 mL/min Lt Dst Graft 300/175 cm/sec Lt [place] Vein 120 AX V, 75 SUB V cm/sec LEFT STENT MEASUREMENTS: Vessel Velocity Location DIST AVG INTO AX V Lt Stent Prx [place] PSV 181.00 cm/sec Lt Stent Prx Attachment PSV 160.00 cm/sec Lt Stent Mid PSV 189.00 cm/sec Lt Stent Dst Attachment PSV 214.00 cm/sec Lt Stent Dst [place] PSV 208 AX V cm/sec FINDINGS: Study [...] Gender: M Study Date: 12/01/2024 08:40:58 AM Vp Marketing Services And Skin: Dianne Jacobsen Provider: CHAPARRO STEPHENS Provider: CHAPARRO [...] Velocity Lt Location LT BRACH-AX AVG Lt [place] Artery 281.00 cm/sec Lt [place] Artery VF 1216.00 mL/min Lt Arterial Anast 593/277 cm/sec Lt Prx Graft 337/148 cm/sec Lt Prx-Mid Graft 380/204 cm/sec Lt Mid Graft 396/191 cm/sec Lt Mid Graft VF 2108.00 mL/min Lt Dst Graft 300/175 cm/sec Lt [place] Vein 120 AX V, 75 SUB V cm/sec LEFT STENT MEASUREMENTS: Vessel Velocity Location DIST AVG INTO AX V Lt Stent Prx [place] PSV 181.00 cm/sec Lt Stent Prx Attachment PSV 160.00 cm/sec Lt Stent Mid PSV 189.00 cm/sec Lt Stent Dst Attachment PSV 214.00 cm/sec Lt Stent Dst [place] PSV 208 AX V cm/sec FINDINGS: Study [...] 12/01/2024 2:57:23 PM CDT Chaparro Stephens MD IMG US PROCEDURES Final Result * (ABNORMAL) POCT lipid panel (09/29/2024 12:17 PM CDT) Cholesterol, POC 100 <200 MG/DL HDL, POC 16(A) >=40 mg/dL Triglycerides, POC 103 <=149 mg/dL LDL Cholesterol POC 63.4 <=129 mg/dL Chol/HDL Ratio, POC 0 NONE Non-HDL Cholesterol, POC 0 NONE mg/dL Cholesterol Total, POC 100 30 - 199 mg/dL Capillary blood 09/29/2024 1 2:17 PM CDT Mathew Plummer MD POINT OF CARE TEST O RDERABLES Final Result * (ABNORMAL) Hemoglobin A1c (12/30/2023 9:13 PM CDT) Pathologist [facility] Hgb A1C 6.6(H) 4.0 - 5.6 % Estimated Average Glucose 143 mg/dL [facility] Comment: The ADA recommends reporting an estimated Average Glucose (eAG) with all Hemoglobin A1c results using the equation derived from a study of 507 normal and diabetic adults. Minority populations were underrepresented and children were not included. (Diabetes Care 2020; 43(S1): S66-S76). The eAG is not equivalent to a fasting glucose. Blood 12/30/2023 9:13 PM CDT 12/30/2023 9:54 PM CDT Minoo Mcgowan MD PhD LAB BLOOD ORDERABLES F inal Result [facility] One [facility] Department [place] [address] * Hepatitis panel, acute Blood (07/08/2023 7:12 AM SLEEP TECH) Pathologist [facility] Hep A IgM Nonreactive Nonreactive MICHAELLE Comment: [...] data was last revised on 19. Hep C Ab Nonreactive Nonreactive MICHAELLE Comment: Interpretive Data Nonreactive: Antibodies to HCV [...] Nonreactive Nonreactive MIC[facility]ELLE Blood 07/08/2023 7:12 AM SLEEP TECH 07/08/2023 7:23 AM SLEEP TECH us Sameed Yecenia Ellsworth MD LAB MICROBIOLOGY - GENERA L ORDERABLES Final Result [facility]ELLE [place] [address] Department [place] [address] from Last 3 Months or Most Recently Relevant to Health Maintenance
--- OUTSIDE RECORDS SUMMARY | 2025-02-26 11:00 | XMS_ITS | Encounter Summary ---
Author Organization [facility] Address [address] [place] [address] Care Team Providers Care Supply Analyst Name Role Phone Srikanth Hernandez MD Primary Care Prov ider Bon Izquierdo MD Unavailable [phone] Estiven Dubois MD Unavailable [phone] Rebecca Zuluaga GALLERY OR MUSEUM GUIDE Unavailable [phone] Mathew Plummer MD Unavailable + [phone] Srikanth Stephens MD Unavailable [phone] Tootie Kraft GALLERY OR MUSEUM GUIDE Unavailable + [phone] Minoo Mcgowan MD PhD Unavailable [phone] Encounter Details Date Type Department Care Team (Late st Contact Info) Description 04/18/2022 Telephone [facility] Dialysis Access Center at [facility] [address] [facility] [address] [place] [address] Srikanth Stephens MD [address] [facility] [address] [place] [address] Social History Tobacco Use Types Packs/Day Years Used Date Smoking Tobacco: Never Smokeless Tobacco: Current Snuff Social Connection and Isolation Panel Answer Date Recorded In a typical week, how many times do you talk on the phone with family, friends, or neighbors? More than three times a week 02/07/2022 How often do you get togethe r with friends or relatives? More than three times a week 02/07/2022 How often do you attend chur ch or anglican services? Never 02/07/2022 Do you belong to any clubs o r organizations such as sabianist groups, unions, fraternal or athletic groups, or school groups? No 02/07/2022 How often do you attend meet ings of the clubs or organizations you belong to? Never 02/07/2022 Are you , , di vorced, , never , or living with a partner? 02/07/2022 AUDIT-C Answer Date Recorded Q1: How often do you have a drink containing alcohol? Never 04/21/2022 Q2: How many drinks containi ng alcohol do you have on a typical day when you are drinking? Patient does not drink Q3: How often do you have si x or more drinks on one occasion? Never 04/21/2022 Overall Financial Resource Strain (CARDIA) Answe r [...] place to sleep or slept in a skilled nursing (including now)? No 02/07/2022 Sex and Gender Information Value Date Recorded Sex Assigned at Not on file Legal Sex Male 6:58 PM DELIVERY MGR Gender Identity Not on file Sexual Orientation Not on file documented as of this encounter Functional Status documented as of this encounter Plan of Treatment Not on file documented as of this encounter Visit Diagnoses Not on filedocumented in this encounter Additional Health Concerns Infection Onset Date Last Indicated Resolved Time COVID: Suspected 04/30/2022 04/30/2022 04/30/2022 11:31 AM DELIVERY MGR documented as of this encounter Care Teams Supply Analyst Relationship Specialty Start Date End Date Srikanth Hernandez MD PCP - General Family Medicine 10/16/19 Bon Izquierdo MD Consulting Physician Medical Oncology 10/21/21 05/21/22 Estiven Dubois MD [address] [address] Consulting Physician Nephrology 10/23/21 Rebecca Zuluaga NP [address] [address] Nurse Practitioner Cardiology 12/27/21 Mathew Plummer MD [facility] [facility] [address], [place] [address] Consulting Physician Interventional Cardiology 04/14/22 Srikanth Stephens MD [address] [facility] [address] [facility] [address] [place] [address] Surgeon Surgery 04/28/22 Tootie Kraft, ELANA [address] [place] [address] Nurse Practitioner Medical Oncology 05/22/22 Minoo Mcgowan MD PhD [id number] [place] [address] Registered Nurse Vascular Surgery 01/06/24 documented as of this encounter
--- NOTE | 2025-02-26 11:28 | ED.GENADULT ---
HPI - General Adult General Chief complaint: Urogenital-Male Stated complaint: UNSPECIFIED Time Seen by Provider: 02/26/25 11:11 History of Present Illness HPI narrative: Patient is a 79-year-old gentleman presents emergency department with chief complaint of hematuria. Patient reports he has had some painfulness and difficulty urinating for the last 3 days reports no fever reports no flank pain does report that he is on dialysis Thursday patient states that he had no trauma Related Data Home Medications ?Medication ?Instructions ?Recorded ?Confirmed ?Last Taken ?Type ferrous sulfate 325 mg (65 mg 325 mg PO BID 01/10/22 08/05/24 07/31/22 21:00 History iron) tablet (Iron (ferrous sulfate)) apixaban 5 mg tablet (Eliquis) 5 mg PO BID 01/11/22 08/05/24 07/31/22 21:00 History clopidogrel 75 mg tablet 75 mg PO DAILY 12/10/23 08/05/24 Unknown History loratadine 10 mg capsule 10 mg PO EVERY OTHER DAY 01/06/24 08/05/24 Unknown History rosuvastatin 10 mg tablet 10 mg PO DAILY 01/06/24 08/05/24 Unknown History coenzyme [id number] E 100 mg-100 cap PO 01/21/24 08/05/24 Unknown History unit capsule Allergies Allergy/AdvReac Type Severity Reaction Status Date / Time Sulfa (Sulfonamide Allergy Unknown Rash,Unknow Unverified 08/04/24 09:14 Antibiotics) n,Unknown,R isaiah sitagliptin (From Januvia) Allergy Rash Verified 08/04/24 09:14 Tea Allergy Nausea and Uncoded 08/04/24 09:14 Vomiting Review of Systems Review of Systems: A 10 system review of systems was completed on the patient and is negative except for what is stated in the HPI. Nursing and ancillary documentation was reviewed. [facility] Past Medical History Medical History Acute CVA (cerebrovascular accident) (12/2023) Diabetic neuropathy Diabetic retinopathy Pulmonary hypertension Combined systolic and diastolic congestive heart failure Echocardiogram 10/2021: Mild concentric left ventricular hypertrophy, moderate left ventricular enlargement, moderate global left ventricular systolic dysfunction with EF of 30%, diastolic dysfunction, severe left atrial enlargement, mild right atrial enlargement, mild aortic valve regurgitation, moderate pulmonary hypertension with RVSP of 53, moderate tricuspid regurgitation End-stage renal disease Hemodialysis started June 2022; managed by Dr. 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 Abnormal thumb on the left hand Anemia of chronic disease Pneumonia due to COVID-19 virus Allergic rhinitis Chronic sinusitis Eczema Ulcer Hyperlipidemia COVID-19 10/04 and 08/01/2022 Surgical History Surgical History Status post creation of arteriovenous fistula Left upper arm Status post cataract extraction of both eyes with insertion of intraocular lens Family History Family History Father Lung cancer Daughter Chronic lung disease Morbid obesity Grandparent Asthma Mother Hypertension Other Diabetes mellitus Heart disease Malignant neoplasm of prostate Social History Social History Social History: The patient is and lives with his of 47 years. He is a lifelong nonsmoker. He did chew tobacco. Primary care physician: Dr. Srikanth Danielson Code status: Full code Surrogate decision maker: Smoking status: Never smoker Smokeless tobacco user: chewing tobacco Second hand tobacco smoke exposure: No Alcohol intake: former Alcohol use details: He reports that he drank heavily until 1975 when he found Jovani. Substance use: never Substance use type: does not use Do You Feel Safe in your Home?: Yes Lack of Transportation: No Lack of Food: Never True Current Housing: I Have Housing Concerned About Future Housing: No Difficulty Paying Gas/Electric Bills: No Difficulty Paying for Meds: No Currently Unemployed: No Education: Decline to Answer Difficulty w/ Childcare or Family Care: No Living arrangements: with family Additional living arrangements comments: He lives in [place] with his of 47 years. He has total of 6 children 5 of which are still living and her relatively healthy. He had 1 daughter who of morbid obesity and chronic lung disease. 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 Gender identity (if verbalized by the patient): Male Sexual Orientation (if Verbalized by the Patient): Straight or Heterosexual Spiritual care concerns: No Agree to blood products: Yes Exam Narrative: GENERAL: Well-appearing, well-nourished, and in no acute distress. HEAD: Normocephalic, atraumatic. EYES: PERRLA and EOMI. ENT: Nares clear, no rhinorrhea or epistaxis. Mucous membranes moist. NECK: Supple. CHEST: Clear to auscultation. No respiratory distress. HEART: Regular rate and rhythm. No murmur heard. Normal peripheral pulses. ABDOMEN: Soft, nontender, nondistended, normal active bowel sounds. EXTREMITIES: Normal range of motion. No edema. : Sheriff catheter in place SKIN: Warm, dry, no rash. NEURO: No focal deficits. Alert and oriented x3. PSYCH: Normal mood and affect. Course Vital Signs Vital signs: Vital Signs Temperature 36.4 C 02/26/25 11:00 Pulse Rate 85 02/26/25 11:00 Respiratory Rate 18 02/26/25 11:00 Blood Pressure 150/74 H 02/26/25 11:00 Pulse Oximetry 99 02/26/25 11:00 Oxygen Delivery Room Air 02/26/25 11:00 Temperature 36.4 C 02/26/25 11:00 Pulse Rate 75 02/26/25 13:38 Respiratory Rate 18 02/26/25 13:38 Blood Pressure 181/73 H 02/26/25 13:56 Pulse Oximetry 99 02/26/25 13:38 Oxygen Delivery Room Air 02/26/25 11:00 Medical Decision Making [facility] Narrative Medical decision making narrative: Patient was passing clots a 3 way Sheriff catheter was placed and several large clots Were expressed from catheter. CT scan of the abdomen pelvis was obtained shows some thickening of the bladder The patient's urine has changed to a light fruit punch color without clots The case was discussed with Urology the patient will be started on oral antibiotics and will be referred to Urology Vital Signs Vital Signs: Vital Signs Temperature 36.4 C 02/26/25 11:00 Pulse Rate 85 02/26/25 11:00 Respiratory Rate 18 02/26/25 11:00 Blood Pressure 150/74 H 02/26/25 11:00 Pulse Oximetry 99 02/26/25 11:00 Oxygen Delivery Room Air 02/26/25 11:00 Temperature 36.4 C 02/26/25 11:00 Pulse Rate 75 02/26/25 13:38 Respiratory Rate 18 02/26/25 13:38 Blood Pressure 181/73 H 02/26/25 13:56 Pulse Oximetry 99 02/26/25 13:38 Oxygen Delivery Room Air 02/26/25 11:00 Lab Data 02/26/25 11:23 02/26/25 11:23 Labs: Lab Results 02/26/25 Range/Units 11:23 WBC 6.4 (4.5-10.0) K/mm3 RBC 3.53 L (4.6-6.20) M/mm3 Hgb 10.0 L (14.0-18.0) g/dL Hct 31.5 L (42.0-52.0) % MCV 89.2 (80-100) fl MCH 28.3 (26-34) pg MCHC 31.7 L (32-36) g/dl RDW 16.6 H (11.5-14.5) % Plt Count 124 L (150-375) k/mm3 MPV 9.6 (7.4-10.4) fl Immature Gran % (Auto) 0.3 (0-0.5) % Neut % (Auto) 70.4 (45.5-73.1) % Lymph % (Auto) 14.0 L (18.3-44.2) % [place] % (Auto) 8.7 H (2.6-8.5) % Eos % (Auto) 6.1 H (0-4.4) % Baso % (Auto) 0.5 (0.2-1.2) % Lymph # (Auto) 0.90 (0.9-3.2) K/mm3 [place] # (Auto) 0.6 (0.1-0.6) K/mm3 Eos # (Auto) 0.4 H (0-0.3) K/mm3 Baso # (Auto) 0.0 (0.0-0.1) K/mm3 Abs Immat Gran (auto) 0.02 (0.00-0.031) K/mm3 Absolute Neuts (auto) 4.5 (1.3-6.7) K/mm3 Absolute Nucleated RBC 0.000 (0.0-0.012) K/mm3 Nucleated RBC % 0.0 (0.0-0.2) % PT 17.0 H (11.1-14.7) Seconds INR 1.4 APTT 36.2 (22.3-36.8) Seconds Sodium 133 L (137-145) mmol/L Potassium 4.0 (3.4-5.0) mmol/L Chloride 94 L (98-107) mmol/L Carbon Dioxide 28 (22-30) mmol/L Anion Gap 11 (4-12) mmol/L BUN 53 H D (9-20) mg/dL Creatinine 4.64 H (0.7-1.3) mg/dL Estim Creat Clear Calc 13 ml/min Estimated GFR 12 L (59 - ) Glucose 125 H (65-110) mg/dL Calcium 9.5 (8.4-10.2) mg/dL Total Bilirubin 0.3 (0.2-1.3) mg/dL AST 21 (17-59) U/L ALT 13 (6-50) U/L Alkaline Phosphatase 102 (38-126) U/L Total Protein 6.9 (6.3-8.2) g/dL Albumin 3.6 (3.5-5.1) g/dL Urine Color Light red H (Yellow) Urine Appearance Cloudy H (Clear) Urine pH 7.5 (5.0-9.0) Ur Specific [place] 1.008 (1.001-1.035) Urine Protein 3+ H (Negative) mg/dL Urine Glucose (UA) Negative (Negative) mg/dL Urine Ketones Negative (Negative) mg/dL Ur Blood (Man) 3+ H (Negative) Urine Nitrate Negative (Negative) Urine Bilirubin Negative (Negative) Urine Urobilinogen 0.2 (<2.0) mg/dL Leukocyte Esterase Rfl 3+ H (Negative) JASMINA/UL Urine RBC >100 H (0-2) /hpf Urine WBC >100 H (0-3) /hpf Ur Squamous Epith Cells None seen (Few) /hpf Urine Bacteria 4+ /hpf Urine Casts 0-2 Blood Type O Positive Antibody Screen Negative Discharge Plan Discharge Clinical Impression: Hematuria, Acute UTI Patient Disposition: Home Condition: Stable Instructions: Antibiotic Form Patient Language: Swedish Prescriptions: New cephalexin 500 mg capsule 500 mg PO Q12H 7 Days Qty: 14 0RF No Action clopidogrel 75 mg tablet 75 mg PO DAILY coenzyme [id number] E 100-100 mg-unit capsule PO ferrous sulfate [Iron (ferrous sulfate)] 325 mg (65 mg iron) Tablet 325 mg PO BID Eliquis 5 mg tablet 5 mg PO BID (DME) blood-glucose meter [Stingray GeophysicalTouch Ultra2 Meter] Kit See Rx Instructions .Route Qty: 1 0RF Rx Instructions: use to check blood sugar qd carvedilol 12.5 mg tablet See Rx Instructions .ROUTE .COMPLEX Qty: 180 3RF Dose Instruction: TAKE 1 TABLET BY MOUTH TWICE DAILY WITH MEALS Rx Instructions: TAKE 1 TABLET BY MOUTH TWICE DAILY WITH MEALS (DME) Accu-Chek Guide test strips Strip See Rx Instructions .Route Qty: 100 2RF Rx Instructions: Use to check blood glucose level once daily. (DME) blood-glucose meter [Accu-Chek Guide Me Glucose Mtr] Misc See Rx Instructions .Route Qty: 1 0RF Rx Instructions: Use to check blood glucose level once daily. furosemide 40 mg tablet See Rx Instructions .ROUTE .COMPLEX Qty: 180 0RF Dose Instruction: Take 1 tablet by mouth twice daily Rx Instructions: Take 1 tablet by mouth twice daily (DME) lancets [Stingray GeophysicalTouch Delica Plus Lancet] 30 gauge misc See Rx Instructions .ROUTE .COMPLEX Qty: 100 1RF Dose Instruction: USE 1 UNIT TO CHECK GLUCOSE ONCE DAILY Rx Instructions: USE 1 UNIT TO CHECK GLUCOSE ONCE DAILY glipizide 5 mg tablet See Rx Instructions .ROUTE .COMPLEX Qty: 180 1RF Dose Instruction: Take 1 tablet by mouth twice daily Rx Instructions: Take 1 tablet by mouth twice daily Triphrocaps 1 mg capsule See Rx Instructions .ROUTE .COMPLEX Qty: 90 1RF Dose Instruction: Take 1 capsule by mouth once daily Rx Instructions: Take 1 capsule by mouth once daily rosuvastatin 10 mg Tablet 10 mg PO DAILY loratadine 10 mg Capsule 10 mg PO EVERY OTHER DAY hydralazine 25 mg Tablet 50 mg PO TID 30 Days Qty: 180 0RF cholecalciferol (vitamin D3) 50 mcg (2,000 unit) Tablet 50 mcg PO BID Qty: 30 0RF Follow-up/Referrals: Scott Maciel MD [Physician, Urology] Srikanth Hernandez MD [Primary Care Provider, Family Practice] Time of Disposition: 15:10
[2025-02-26 11:32] LABS: Hematocrit 31.5 % (42.0-52.0); Hemoglobin 10.0 g/dL (14.0-18.0); Immature Granulocyte Percent A 0.3 % (0-0.5); Lymphocytes Absolute Auto 0.90 K/mm3 (0.9-3.2); Mean Corpuscular HGB Conc 31.7 g/dl (32-36); Mean Corpuscular Hemoglobin 28.3 pg (26-34); Mean Corpuscular Volume 89.2 fl (80-100); Nucleated Red Blood Cells Absolute Auto 0.000 K/mm3 (0.0-0.012); Nucleated Red Blood Cells Perc 0.0 % (0.0-0.2); Platelet Count Result 124 k/mm3 (150-375); Red Blood Count 3.53 M/mm3 (4.6-6.20); White Blood Count 6.4 K/mm3 (4.5-10.0)
[2025-02-26 11:45] LABS: INR 1.4; Prothrombin Time 17.0 Seconds (11.1-14.7)
[2025-02-26 11:46] LABS: Alanine Aminotransferase 13 U/L (6-50); Albumin Level 3.6 g/dL (3.5-5.1); Alkaline Phosphatase 102 U/L (38-126); Anion Gap 11 mmol/L (4-12); Aspartate Amino Transferase 21 U/L (17-59); Bilirubin,Total 0.3 mg/dL (0.2-1.3); Blood Urea Nitrogen 53 mg/dL (9-20); Calcium 9.5 mg/dL (8.4-10.2); Carbon Dioxide 28 mmol/L (22-30); Chloride 94 mmol/L (98-107); Estimated CRCL calculation 13 ml/min; Estimated Glomerular Filt Rate 12; Glucose 125 mg/dL (65-110); Partial Thromboplastin Time 36.2 Seconds (22.3-36.8); Potassium 4.0 mmol/L (3.4-5.0); Sodium 133 mmol/L (137-145); Total Protein 6.9 g/dL (6.3-8.2)
[2025-02-26 12:03] LABS: Non Pathogenic Casts 0-2
[2025-02-26 12:11] LABS: Add Urine Microscopic? YES; Appearance Urine Cloudy (Clear); Glucose Urine UA Negative (Negative); Leukocyte Esterase Ur 3+ LEU/UL (Negative); Nitrate Urine Negative (Negative); Specific Grav Ur 1.008 (1.001-1.035)
[2025-02-26] MEDS: SODIUM CHLORIDE 0.9% IV 500 ML BAG IRRIGATION (12:48)
--- NOTE | 2025-02-26 12:48 | PC.NURSE ---
Addendum entered by Betty Rodas RN 02/26/25 15:20: 22Fr 30cc Original Note: Late entry:3 way negron placed, pt tolerated as to be expected. 2 clots visualized, urine blood tinged, not niraj blood.
--- NOTE | 2025-02-26 12:49 | PC.NURSE ---
Sheriff irrigated with NS. No additional clots visualized. Urine clearing up. aware
--- NOTE | 2025-02-26 12:51 | PC.NURSE ---
Late entry : Bladder scan with 197mL urine in bladder prior to negron placement
[2025-02-26 13:38] VITALS: PULSE 75; RESP 18; O2SAT 99
[2025-02-26 13:56] VITALS: BP 181/73
--- NOTE | 2025-02-26 14:42 | PC.NURSE ---
Urine noted to be red, irrigated with NS and continues to be red in color. No clots. MD notified.
[2025-02-26 15:19] VITALS: BP 185/73; PULSE 76; RESP 18
[2025-02-26 17:54] VITALS: BP 175/87; PULSE 81; RESP 19; O2SAT 100
--- NOTE | 2025-02-26 17:54 | PC.NURSE ---
leg bag applied
== END 2025-02-26 17:56 | disposition home or self-care (01) ==
PROVIDERS: Emergency Provider Emergency Medicine; PCP Family Medicine Adolescent Medicine
DX: N39.0 Urinary tract infection, site not specified (principal); R31.9 Hematuria, unspecified; E11.22 Type 2 diabetes mellitus with diabetic chronic kidney disease; N18.6 End stage renal disease; Z99.2 Dependence on renal dialysis; E11.40 Type 2 diabetes mellitus with diabetic neuropathy, unspecified; E11.319 Type 2 diabetes mellitus with unspecified diabetic retinopathy without macular edema; E78.5 Hyperlipidemia, unspecified; I50.40 Unspecified combined systolic (congestive) and diastolic (congestive) heart failure; I48.91 Unspecified atrial fibrillation; I27.20 Pulmonary hypertension, unspecified; N25.81 Secondary hyperparathyroidism of renal origin; D63.8 Anemia in other chronic diseases classified elsewhere; M35.3 Polymyalgia rheumatica; Z85.46 Personal history of malignant neoplasm of prostate; Z86.16 Personal history of COVID-19; Z87.01 Personal history of pneumonia (recurrent); Z87.891 Personal history of nicotine dependence; Z96.1 Presence of intraocular lens; Z98.42 Cataract extraction status, left eye; Z98.41 Cataract extraction status, right eye; Z79.01 Long term (current) use of anticoagulants; Z79.02 Long term (current) use of antithrombotics/antiplatelets; Z79.899 Other long term (current) drug therapy; Z79.84 Long term (current) use of oral hypoglycemic drugs
CPT/HCPCS: 36415; 51700; 74176; 80053; 81001; 85025; 85610; 85730; 86850; 86900; 86901; 87077; 87086; 87186; 99284; J7040

== ENCOUNTER 2025-03-06 10:04 | Emergency (ER) | payer OTHER, MEDICAID, SELFPAY ==
[2025-03-06] VITALS (8 sets, daily range): BP systolic 152–189; BP diastolic 63–95; PULSE 72–97; RESP 14–20; TEMP 36.4–36.7; O2SAT 94–100
--- NOTE | ~2025-03-06 | XR_ITS ---
EXAMINATION: XR chest 2V 03/06/2025 11:57 INDICATION: Weakness. Recent UTI. PROCEDURE: 2 view chest COMPARISON: Comparison to multiple prior studies sequentially, with oldest reviewed study dated 01/12/2020. FINDINGS: The lungs are clear. The cardiomediastinal silhouette is within normal limits. There are no pleural effusions. There is no pneumothorax suspected. There is a vascular stent in the left axillary region. IMPRESSION: 1: NO ACUTE CARDIOPULMONARY DISEASE. Reviewed, dictated and finalized at location O.
--- NOTE | 2025-03-06 11:35 | ECG_ITS ---
Test Date: 2025-03-06 11:41:54 Measurements Intervals Emmons Rate: 88 P: 0 CA: 0 QRS: -37 QRSD: 114 T: 11 QT: 357 QTc: 433 Interpretive Statements ATRIAL FIBRILLATION WITH ABERRANT CONDUCTION OR VENTRICULAR PREMATURE COMPLEXES INTRAVENTRICULAR CONDUCTION DELAY BORDERLINE R WAVE PROGRESSION, ANTERIOR LEADS CONSIDER INFERIOR INFARCT, AGE INDETERMINATE BORDERLINE ST-T WAVE ABNORMALITY- HIGH LATERAL LEADS BASELINE ARTIFACT- I, II, AVR ABNORMAL ECG Compared to ECG 07/19/2024 00:01:44 VENTRICULAR PREMATURE COMPLEXES NOW PRESENT Electronically Signed On 03-06-2025 12:00:46 CDT by Wilfredo Hernández D.O.
--- OUTSIDE RECORDS SUMMARY | 2025-03-06 11:35 | XMS_ITS | Encounter Summary ---
Author Organization [facility] Address [address] [place] [phone] Phone Care Team Providers Care District Wildlife Manager Name Role Phone Srikanth Danielson MD Primary Care Provider [phone] Reason for Visit * Reason Comments Med Refill Encounter Details Date Type Department Care Team (Late st Contact Info) Description 09/22/2019 Refill [facility] [address] [facility] 1 [place] [address] Estiven Dubois MD 5[address] [facility] 1 [place] [address] Social History Tobacco Use Types Packs/Day Years Used Date Smoking Tobacco: Never Smokeless Tobacco: Never Alcohol Use Standard Drinks/Week Comments No 0 (1 standard drink = 0.6 oz pur e alcohol) Sex and Gender Information Value Date Recorded Sex Assigned at Not on file Legal Sex Male 8:46 AM [facility] Gender Identity Not on file Sexual Orientation Not on file documented as of this encounter Plan of Treatment Not on file documented as of this encounter Visit Diagnoses Not on filedocumented in this encounter Care Teams District Wildlife Manager Relationship Specialty Start Date End Date Srikanth Danielson MD [address] [facility] 100 [place] [address] PCP - General Family Medicine 11/03/18 documented as of this encounter
--- OUTSIDE RECORDS SUMMARY | 2025-03-06 11:35 | XMS_ITS | Encounter Summary ---
Author Organization [facility] Address [address] [place] [phone] Phone Care Team Providers Care Cooler Tender Name Role Phone Srikanth Danielson MD Primary Care Provider [phone] Reason for Visit * Reason Comments Med Refill Encounter Details Date Type Department Care Team ([facility] st Contact Info) Description 11/14/2021 Refill [facility] [address] [facility] 1 [place] [address] Estiven Dubois MD [address] [facility] 1 [place] [address] Social History Tobacco Use Types Packs/Day Years Used Date Smoking Tobacco: Never Smokeless Tobacco: Never Alcohol Use Standard Drinks/Week Comments No 0 (1 standard drink = 0.6 oz pur e alcohol) Sex and Gender Information Value Date Recorded Sex Assigned at Not on file Legal Sex Male 8:46 AM [facility] Gender Identity Not on file Sexual Orientation Not on file documented as of this encounter Plan of Treatment Not on file documented as of this encounter Visit Diagnoses Not on filedocumented in this encounter Care Teams Cooler Tender Relationship Specialty Start Date End Date Srikanth Danielson MD [address] [facility] 100 [place] [address] PCP - General Family Medicine 11/03/18 documented as of this encounter
--- OUTSIDE RECORDS SUMMARY | 2025-03-06 11:35 | XMS_ITS | Encounter Summary ---
Author Organization [facility] Address [address] [place] [phone] Phone Care Team Providers Care Timber Management Specialist Name Role Phone Srikanth Danielson MD Primary Care Provider [phone] Reason for Visit * Reason Comments Med Refill Encounter Details Date Type Department Care Team ([facility] st Contact Info) Description 02/11/2022 Refill [facility] [address] [facility] 1 [place] [address] Estiven Dubois MD 5[address] [facility] 1 [place] [address] Social History Tobacco Use Types Packs/Day Years Used Date Smoking Tobacco: Never Smokeless Tobacco: Never Alcohol Use Standard Drinks/Week Comments No 0 (1 standard drink = 0.6 oz pur e alcohol) Sex and Gender Information Value Date Recorded Sex Assigned at Not on file Legal Sex Male 8:46 AM [facility] Gender Identity Not on file Sexual Orientation Not on file documented as of this encounter Plan of Treatment Not on file documented as of this encounter Visit Diagnoses Not on filedocumented in this encounter Care Teams Timber Management Specialist Relationship Specialty Start Date End Date Srikanth Danielson MD [address] [facility] 100 [place] [address] PCP - General Family Medicine 11/03/18 documented as of this encounter
--- OUTSIDE RECORDS SUMMARY | 2025-03-06 11:35 | XMS_ITS | Encounter Summary ---
Author Organization [facility] Address [address] [place] [phone] Phone Care Team Providers Care Global Climate Change Analyst Name Role Phone Srikanth Danielson MD Primary Care Provider [phone] Reason for Visit * Reason Comments Med Refill Encounter Details Date Type Department Care Team ([facility] st Contact Info) Description 08/15/2021 Refill [facility] [address] [facility] 1 [place] [address] Estiven Dubois MD 5[address] [facility] 1 [place] [address] Social History Tobacco Use Types Packs/Day Years Used Date Smoking Tobacco: Never Smokeless Tobacco: Never Alcohol Use Standard Drinks/Week Comments No 0 (1 standard drink = 0.6 oz pur e alcohol) Sex and Gender Information Value Date Recorded Sex Assigned at Not on file Legal Sex Male 8:46 AM [facility] Gender Identity Not on file Sexual Orientation Not on file documented as of this encounter Plan of Treatment Not on file documented as of this encounter Visit Diagnoses Not on filedocumented in this encounter Care Teams Global Climate Change Analyst Relationship Specialty Start Date End Date Srikanth Danielson MD [address] [facility] 100 [place] [address] PCP - General Family Medicine 11/03/18 documented as of this encounter
--- OUTSIDE RECORDS SUMMARY | 2025-03-06 11:35 | XMS_ITS | Encounter Summary ---
Author Organization [facility] Address [address] [place] [address] Phone Care Team Providers Care Shearer Helper Name Role Phone Srikanth Danielson MD Primary Care Provider [phone] Reason for Visit * Reason Comments Med Refill Encounter Details Date Type Department Care Team (Late st Contact Info) Description 02/17/2019 Refill [facility] 5[address] [facility] 1 [place] [address] Dulce Wang, PICKER FEEDER 5[address] [facility] 1 [place] [address] Social History Tobacco Use Types Packs/Day Years Used Date Smoking Tobacco: Never Smokeless Tobacco: Never Alcohol Use Standard Drinks/Week Comments No 0 (1 standard drink = 0.6 oz pur e alcohol) Sex and Gender Information Value Date Recorded Sex Assigned at Not on file Legal Sex Male 8:46 AM [facility] Gender Identity Not on file Sexual Orientation Not on file documented as of this encounter Plan of Treatment Not on file documented as of this encounter Visit Diagnoses Not on filedocumented in this encounter Care Teams Shearer Helper Relationship Specialty Start Date End Date Srikanth Danielson MD [address] [facility] 100 [place] [address] PCP - General Family Medicine 11/03/18 documented as of this encounter
--- OUTSIDE RECORDS SUMMARY | 2025-03-06 11:35 | XMS_ITS | Clinical Summary ---
Author Organization [facility] Address [address] [place] [phone] Phone Care Team Providers Care Highway Patrol Commander Name Role Phone Srikanth Danielson MD Primary Care Provider Allergies Active Allergy Reactions Criticality Noted Date Comments Sitagliptin Rash Medium 09/25/2021 Sulfa Antibiotics Hives,Itching Medium 09/25/2021 Medications carvedilol (COREG) 25 MG tablet one tab two times daily 0 6 Active Additional Information Patient taking differently: 12.5 mgOral2 times daily with meals, Reported on 05/29/2022 B Vqruvql-E-Adckd Acid (TRIPHROCAPS) 1 MG capsule Take by [...] file Legal Sex Male 8:46 AM [facility] Gender Identity Not on file Sexual Orientation Not on file Last Filed Vital Signs Vital Sign Reading Time Taken Comments Blood Pressure 129/42 05/29/2022 2:19 PM FISCAL MANAGER Pulse 53 05/29/2022 2:19 PM FISCAL MANAGER Temperature 36.6 C (97.8 F) 04/17/2021 12:11 PM FISCAL MANAGER Respiratory Rate - - Oxygen Saturation - - Inhaled Oxygen Concentration - - Weight 81.6 kg (180 lb) 05/29/2022 2:19 PM FISCAL MANAGER Height 177.8 cm (5' 10) 05/29/2022 2:19 PM FISCAL MANAGER Body Mass Index 25.83 05/29/2022 2:19 PM FISCAL MANAGER Plan of Treatment Health Maintenance Due Date Last Done Comments Diabetic Foot Exam 08/15/1957 Ophthalmology Exam 08/15/1957 Pneumococcal PPSV23/PCV13 65 + Years / High and Highest Risk (2 of 4 - PPSV23, PCV20, or PCV21) 04/28/2017 03/03/2017 COVID-19 Vaccine (3 - 2024- season) 2025, 07/09/2020 Influenza Vaccine (#1) 2025 Insurance MEDICARE [facility] [employer] MEDICARE ADVANTAGE Care Teams Highway Patrol Commander Relationship Specialty Start Date End Date Srikanth Danielson MD [address] [address] PCP - General Family Medicine 11/03/18
--- OUTSIDE RECORDS SUMMARY | 2025-03-06 11:36 | XMS_ITS | Encounter Summary ---
Author Organization [facility] Healthcare Address [address] [place] [address] Care Team Providers Care Corporate Travel Manager Name Role Phone Srikanth Hernandez MD Primary Care Prov ider Estiven Dubois MD Unavailable [phone] Rebecca Zuluaga BLUEBERRY GROWER Unavailable [phone] Mathew Plummer MD Unavailable + [phone] Srikanth Stephens MD Unavailable + [phone] Tootie Kraft BLUEBERRY GROWER Unavailable + [phone] Minoo Mcgowan MD PhD Unavailable [phone] Encounter Details Date Type Department Care Team (Late st Contact Info) Description 01/08/2023 Telephone [facility] D[facility] Access [facility] at [facility] [address] [facility] [address] [place] [address] Srikatnh Stephens MD [address] [place] [address] [address] [facility] [address] [place] [address] Social History Tobacco Use Types Packs/Day Years [...] often do you attend chur ch or sabianism services? Never 02/07/2022 Do you belong to any clubs o r organizations such as restorationist groups, unions, fraternal or athletic groups, or [...] place to sleep or slept in a fpc (including now)? No 02/07/2022 Sex and Gender Information Value Date Recorded Sex Assigned at Not on file Legal Sex Male 6:58 PM TABLET REPAIR Gender Identity Not on file Sexual Orientation Not on file documented as of this encounter Plan of Treatment Not on file documented as of this encounter Visit Diagnoses Not on filedocumented in this encounter Care Teams Corporate Travel Manager Relationship Specialty Start Date End Date Srikanth Hernandez MD PCP - General Family Medicine 10/16/19 Estiven Dubois MD [address] [address] Consulting Physician Nephrology 10/23/21 Rebecca Zuluaga NP [address] [address] Nurse Practitioner Cardiology 12/27/21 Mathew Plummer MD [facility]5 [facility] [address], [place] [address] Consulting Physician Interventional Cardiology 04/14/22 Srikanth Stephens MD [facility]0 [facility] [address] [facility] [address] [place] [address] Surgeon Surgery 04/28/22 Tootie Kraft NP [address] [place] [address] Nurse Practitioner Medical Oncology 05/22/22 Minoo Mcgowan MD PhD [address] [place] [address] Registered Nurse Vascular Surgery 01/06/24 documented as of this encounter
--- OUTSIDE RECORDS SUMMARY | 2025-03-06 11:36 | XMS_ITS | Clinical Summary ---
Author Organization [facility] Address [address] [place] [id number] Phone Care Team Providers Care Family Consumer Scientist Name Role Phone Srikanth Hernandez MD Primary Care Provider [phone] Social History Tobacco Use Types Packs/Day Years [...] to complete this topic Insurance Care Teams Family Consumer Scientist Relationship Specialty Start Date End Date Srikanth Hernandez MD [address] [address] PCP - General Family Medicine 07/08/23
--- OUTSIDE RECORDS SUMMARY | 2025-03-06 11:36 | XMS_ITS | Clinical Summary ---
Author Organization [facility] Address [address] [place] [address] Care Team Providers Care Golf Ball Winder Name Role Phone Unavailable Primary Care Provider [...] Vaccine: 50+ Years (2 of 2 - PCV20 or PCV21) 03/03/2018 03/03/2017 RSV Immunization or 60+ Years (1 - 1-dose 75+ series) 08/15/2022 COVID-19 Vaccine (3 - 2024-2 6 season) 2025 07/30/2020, 07/09/2020 Influenza Adult (#1) 2025 01/31/2020 Hepatitis A Vaccines Aged Out No long er eligible based on patient's age to complete this topic Meningococcal B Vaccine Aged Out No l onger eligible based on patient's age to complete this topic Meningococcal Vaccine Aged Out No alesia wes eligible based on patient's age to complete this topic RSV Immunizations Under 20 Months Aged Out No longer eligible b ased on patient's age to complete this topic
--- OUTSIDE RECORDS SUMMARY | 2025-03-06 11:36 | XMS_ITS | Encounter Summary ---
Author Organization [facility] Healthcare Address [address] [place] [address] Care Team Providers Care Fruit Buyer Name Role Phone Srikanth Hernandez MD Primary Care Prov ider Estiven Dubois MD Unavailable [phone] Rebecca Zuluaga RUSTIC FENCE BUILDER Unavailable [phone] Mathew Plummer MD Unavailable + [phone] Srikanth Stephens MD Unavailable + [phone] Tootie Kraft RUSTIC FENCE BUILDER Unavailable + [phone] Minoo Mcgowan MD PhD Unavailable [phone] Encounter Details Date Type Department Care Team (Late st Contact Info) Description 09/16/[address] [facility] Medical Office Building [address] [place] [address] Srikanth Stephens MD [facility] [address] [facility] [address] [place] [address] Social History Tobacco Use Types Packs/Day Years [...] week 02/07/2022 How often do you attend [facility] or pentecostalism services? Never 02/07/2022 Do you belong to any clubs o r organizations such as religion groups, unions, fraternal or athletic groups, or [...] place to sleep or slept in a prison (including now)? No 02/07/2022 Sex and Gender Information Value Date Recorded Sex Assigned at Not on file Legal Sex Male 6:58 PM RING MAKER Gender Identity Not on file Sexual Orientation Not on file documented as of this encounter Plan of Treatment Not on file documented as of this encounter Visit Diagnoses Not on filedocumented in this encounter Care Teams Fruit Buyer Relationship Specialty Start Date End Date Srikanth Hernandez MD PCP - General Family Medicine 10/16/19 Estiven Dubois MD [address] [address] Consulting Physician Nephrology 10/23/21 Rebecca Zuluaga NP [address] [address] Nurse Practitioner Cardiology 12/27/21 [place] [address] [place] [address] [address], [place] [address] Consulting Physician Interventional Cardiology 04/14/22 Srikanth Stephens MD [address] [facility] [address] [facility] [address] [place] [address] Surgeon Surgery 04/28/22 Tootie Kraft NP [address] [place] [address] [address] Nurse Practitioner Medical Oncology 05/22/22 Minoo Mcgowan MD PhD [address] [place] [address] Registered Nurse Vascular Surgery 01/06/24 documented as of this encounter
--- OUTSIDE RECORDS SUMMARY | 2025-03-06 11:36 | XMS_ITS | Encounter Summary ---
Author Organization [facility] Healthcare Address [address] [place] [address] Care Team Providers Care Keyboard Specialist Name Role Phone Srikanth Hernandez MD Primary Care Prov ider Estiven Dubois MD Unavailable [phone] Rebecca Zuluaga WIND FARM OPERATIONS MANAGER Unavailable [phone] Mathew Plummer MD Unavailable + [phone] Srikanth Stephens MD Unavailable + [phone] Tootie Kraft WIND FARM OPERATIONS MANAGER Unavailable + [phone] Minoo Mcgowan MD PhD Unavailable [phone] Encounter Details Date Type Department Care Team (Late st Contact Info) Description 04/01/2024 Telephone [facility] Center at [facility] [address] [facility] [address] [place] [address] Naeem Stephens MD [address] [place] [address] [address] [place] [address] Social History Tobacco Use Types Packs/Day Years [...] often do you attend chur ch or voodoo services? Never 02/07/2022 Do you belong to any clubs o r organizations such as bahai groups, unions, fraternal or athletic groups, or [...] in a intermediate (including now)? No 02/07/2022 Personal Safety Answer Date Recorded Have you ever been in or are you currently in a harmful physical or emotional relationship or is someone making you feel afraid or unsafe? Denies 12/30/2023 Sex and Gender Information Value Date Recorded Sex Assigned at Not on file Legal Sex Male 6:58 PM DIRECTOR INTERNAL COMMUNICATIONS Gender Identity Not on file Sexual Orientation Not on file documented as of this encounter Plan of Treatment Not on file documented as of this encounter Visit Diagnoses Not on filedocumented in this encounter Care Teams Keyboard Specialist Relationship Specialty Start Date End Date Srikanth Hernandez MD PCP - General Family Medicine 10/16/19 Estiven Dubois MD [address] [address] Consulting Physician Nephrology 10/23/21 Rebecca Zuluaga NP [address] [address] Nurse Practitioner Cardiology 12/27/21 Mathew Plummer MD [address] [facility] [address] [address] Consulting Physician Interventional Cardiology 04/14/22 Srikanth Stephens MD [address] [facility] [address] [facility] [address] [place] [address] Surgeon Surgery 04/28/22 Tootie Kraft, ELANA [address] [place] [address] Nurse Practitioner Medical Oncology 05/22/22 Minoo Mcgowan MD PhD [address] [place] [address] Registered Nurse Vascular Surgery 01/06/24 documented as of this encounter
--- OUTSIDE RECORDS SUMMARY | 2025-03-06 11:37 | XMS_ITS | Clinical Summary ---
Author Organization [facility] [address] Address [address] [place] [address] Care Team Providers Care Pit And Auxiliaries Supervisor Name Role Phone Srikanth Hernandez MD Primary Care Prov ider Estiven Dubois MD Unavailable [phone] Rebecca Zuluaga NP Unavailable Mathew Plummer MD Unavailable [phone] Srikanth Stephens MD Unavailable [phone] Tootie Kraft MACHINE OPERATOR ASSISTANT Unavailable [phone] Minoo Mcgowan MD PhD Unavailable Allergies Active [...] of L carotid artery. Patient transferred to [facility] for further evaluation and treatment. - [...] reports a follow up appointment with his beef grader on Thursday. Recommend patient to take blood pressure medication at home and monitor blood pressures at home. Also advised patient to notify primary care provider/beef grader of elevated blood pressure for further management. [...] dialysis. Assessment & Plan (03/31/2024 4:40 PM SENIOR BI DEVELOPER): Patient with increased velocity associated with left axillary stent, fortunately asymptomatic. Will plan for left upper extremity AV fistulogram with possible intervention. Risks of the procedure including but not limited to bleeding, infection, nerve injury, stroke, , myocardial infarction communicated patient full understanding. Wished to proceed Assessment & Plan (12/29/2023 10:36 AM CDT): - LUE AV fistula, dialyzes MWF at [facility] - Renal consult for inpatient HD [...] procedure. Assessment & Plan (04/14/2022 10:44 AM SENIOR BI DEVELOPER): Patient seen today for new access evaluation. Preprint Analyst is Dr. Dubois. Previous vein mapping obtained [...] glipizide Assessment & Plan (04/14/2022 10:41 AM SENIOR BI DEVELOPER): History of diabetes that is being controlled [...] CDT - 12/15/2024 10:30 AM CDT Surgery [facility] Cardiac Pole Truck Driver [address] [place] [address] Naeem Stephens MD Dialysis Circuit Angiogram 12/15/2024 7:28 AM CDT - 12/15/2024 11:49 AM CDT Hospital Encounter [facility] Cardiac Pole Truck Driver [facility] [place] [address] Naeem Stephens MD ESRD (end stage renal disease) on dialysis ([facility]) Discharge Disposition: Discharge to home or self [...] AVG - DCB axillary stent - Dr. Naeem Stephens VASCULAR SURGERY PROCEDURE 12/15/2024 Left Procedure: Dialysis Circuit Angiogram; Surgeon: Naeem Stephens MD; Location: [facility] CARDIAC BOAT TESTER; Service: Vascular; Laterality: Left; Medical History Medical History Date Comments Chronic kidney disease stage 4-5 was told states Hypertension Diabetes mellitus Anemia Atrial fibrillation (HCC) Congestive heart failure (HCC) Family history of prostate problems Prostate cancer (HCC) 2010 47 radiati on tx Eczema Covid 2019, 08/2021 Cataract 2009 History of radiation therapy pro state Type 2 diabetes mellitus Hemodialysis patient m/w/f Damien pimentel Family History Medical History Relation Name Comments [...] How often do you attend chur or sabianist services? Never 02/07/2022 Do you belong to any clubs o r organizations such as hoahaoism groups, unions, fraternal or athletic groups, or [...] you are drinking? Patient does not drink 4 Q3: How often do you have si [...] a senior living (including now)? No 02/07/2022 Personal Safety Answer Date Recorded Have you ever been in or are you currently in a harmful physical or emotional relationship or is someone making you feel afraid or unsafe? Denies 12/15/2024 Sex and Gender Information Value Date Recorded Sex Assigned at Not on file Legal Sex Male 6:58 PM SENIOR BI DEVELOPER Gender Identity Not on file Sexual Orientation [...] , 01/28/2021, 01/31/2020 Lipid Panel 09/29/2025 09/29/2024, 12/16, 12/30/2023, Additional history exists Fall Risk Assessment 12/15/2025 12/15/2024 eGFR 12/15/2025 12/15/2024, 12/0 09/2023, 01/04/2024, Additional history exists Pneumococcal vaccine 65+ Completed 023, 01/28/2021, 03/03/2017 Hepatitis C Screening Completed 07/08/2023 Hepatitis B Screening Completed 09/30/2024 , 01/01/2024, 01/14/2023, Additional history exists Medical Devices Implanted Type Area Dough Puncher Device Identifier Shelf Expiration Date Model / Serial / Lot [id number] [employer] Inc Device Vascular Closure Femoral Artery Bioabsorbable Dual Method Vascade 6-7fr Collagen [id number] - [id number] Implanted:Qty: 1 on 07/07/2023 by Mathew Plummer MD at [facility] Collagen Left: Common Femoral Artery Cardiva Medical Inc 02/25/2025 [id number] / / [id number] [employer] Alba Acuseal 4-7mm 45cm Taper Graft Vascular Sterile [id number] - [id number] - [id number] Implanted:Qty: 1 on 04/28/2022 by Srikanth Stephens MD at [facility] Graft Left: Arm Wl [employer] [id number] 05/19/2024 [id number] / [id number] / Medtronic Card Vasc Surgery 3.0 X 22mm Simon [place] Rx Coronary Stent [id number] - [id number] Implanted:Qty: 1 on 07/07/2023 by Mathew Plummer MD at [facility] Stent Left: Circumflex Coronary Artery Medtronic Card Vasc Surgery 06/07/2025 [id number] / / [id number] Bard Peripheral Vascular Stent Graft Endovascular Arteriovenous [id number] Covera [id number] - [id number] Implanted:Qty: 1 on 01/15/2023 by Srikanth Stephens MD at [facility] Left: Arm Bard Peripheral Vascular 06/06/2024 [id number] / / [id number] Procedures Procedure Name Priority Date/Time Associated Diagnosis Comments INTRO CATH DIALYSIS CIRCUIT DX ANGRPH FLUOR [id number] Routine 12/15/2024 10:01 AM CDT ESRD (end stage renal disease) on dialysis (HCC) EGFR STAT 12/15/2024 7:56 AM CDT DIFFERENTIAL AUTO STAT 12/15/2024 7:5 6 AM CDT PROTIME-INR STAT 12/15/2024 7:56 AM CDT BASIC METABOLIC PANEL STAT 12/15/2024 7:56 AM CDT CBC WITH AUTO DIFFERENTIAL STAT 12/15/2024 7:56 AM CDT POCT LIPID PANEL Routine 09/29/2024 12:1 7 PM CDT Paroxysmal atrial fibrillation (HCC) Hypertension associated with chronic kidney disease due to type 2 diabetes mellitus (HCC) HEMOGLOBIN A1C STAT 12/30/2023 9:13 PM CDT HEPATITIS PANEL, ACUTE STAT 07/08/2023 7:12 AM SENIOR BI DEVELOPER from Last 3 Months or Most Recently Relevant to Health Maintenance Results * INTRO CATH DIALYSIS CIRCUIT DX ANGRPH FLUOR [id number] (12/15/2024 10:01 AM CDT) Anatomical Region Laterality Modality X-Ray Angiograph y Narrative 12/15/2024 10:02 AM CDT Please see OpNote for result. Naeem Stephens MD CV CARDIAC CATH PROCEDURES Final [...] AM CDT 12/15/2024 8:00 AM CDT us Naeem Stephens MD LAB BLOOD ORDERABLES Final Resul t MICHAELLE [address] [facility] Department [place] [address] * (ABNORMAL) Differential, auto (12/15/2024 7:56 AM CDT) Pathologist [facility] Neutrophil abs 4.36 1.50 - 6.50 K/cumm Imm gran abs 0.02 0.00 - 0.10 K/cumm [facility] Lymphocyte abs 1.18 0.80 - 3.30 K/cumm [facility] Monocyte abs 0.60 0.20 - 0.80 K/cumm [facility] Eosinophil abs 0.55(H) 0.00 - 0.50 K/cumm [facility] Basophil abs 0.04 0.00 - 0.10 K/cumm [facility] Neutrophil pct 64.6 % [facility] Comment: Interpretive Data Percent cell count reference ranges are not reported, since discordance with absolute values may lead to misinterpretation of CBC data. Current Interpretive Data was last revised on 2017. Imm gran pct 0.3 % [facility] Comment: Interpretive Data Percent cell count reference ranges are not reported, since discordance with absolute values may lead to misinterpretation of CBC data. Current Interpretive Data was last revised on 2017. Lymphocyte pct 17.5 % [facility] Comment: Interpretive Data Percent cell count reference ranges are not reported, since discordance with absolute values may lead to misinterpretation of CBC data. Current Interpretive Data was last revised on 2017. Monocyte pct 8.9 % [facility] Comment: Interpretive Data Percent cell count reference ranges are not reported, since discordance with absolute values may lead to misinterpretation of CBC data. Current Interpretive Data was last revised on 2017. Eosinophil pct 8.1 % [facility] Comment: Interpretive Data Percent cell count reference ranges are not reported, since discordance with absolute values may lead to misinterpretation of CBC data. Current Interpretive Data was last revised on 2017. Basophil pct 0.6 % [facility] Comment: Interpretive Data Percent cell count reference ranges are not reported, since discordance with absolute values may lead to misinterpretation of CBC data. Current Interpretive Data was last revised on 2017. Blood 12/15/2024 7:56 AM CDT 12/15/2024 8:00 AM CDT Naeem Stephens MD LAB BLOOD ORDERABLES Final Resul t Performing Organization Address City/[facility] Co de Phone Number [address] [place] [address] * (ABNORMAL) CBC with auto differential (12/15/2024 7:56 AM CDT) WBC 6.75 3.80 - 9.90 K/cumm Hgb 10.0(L) 13.0 - 17.5 g/dL [facility] Hct 31.1(L) 38.9 - 50.3 % [facility] Plt 103(L) 150 - 400 K/cumm [facility] MPV 9.0(L) 9.1 - 12.3 fL [facility] RBC 3.39(L) 4.30 - 5.80 M/cumm [facility] MCV 91.7 81.3 - 96.4 fL [facility] MCH 29.5 27.1 - 33.3 pg [facility] MCHC 32.2(L) 32.3 - 35.7 g/dL [facility] RDW CV 15.8(H) 11.1 - 14.9 % [facility] RDW SD 52.7(H) 35.7 - 48.1 fL [facility] NRBC abs 0.00 0.00 - 0.01 K/cumm [facility] Blood 12/15/2024 7:56 AM CDT 12/15/2024 8:00 AM CDT Naeem Stephens MD LAB BLOOD ORDERABLES Final Resul t Performing Organization Address City/[facility]/ZIP Co de Phone Number [address] [place] [address] * (ABNORMAL) Protime-INR (12/15/2024 7:56 AM CDT) PT 14.70(H) 12.00 - 14.60 sec Comment:Ref Range High INR 1.14 0.90 - 1.20 [facility] Comment: Ref Range High Interpretive data Oral anticoagulant therapeutic ranges: Venous thromboembolism prophylaxis or treatment: 2.0-3.0 CARDIOLOGY Standard range: 2.0-3.0 High-intensity range: 2.5-3.5 Refer to indication-specific guidelines for appropriate target ranges for prosthetic heart valve replacement. Current interpretive data was last revised on 2019. Blood 12/15/2024 7:56 AM CDT 12/15/2024 8:00 AM CDT us Naeem Stephens MD LAB BLOOD ORDERABLES Final Resul t [facility] [address] [facility] Department [place] [address] * (ABNORMAL) Basic metabolic panel (12/15/2024 7:56 AM CDT) Sodium 141 135 - 145 mmol/L Potassium, pl 3.9 3.3 - 4.9 mmol/L [facility] Chloride 98 97 - 110 mmol/L [facility] CO2 28 22 - 32 mmol/L [facility] Anion gap 15 2 - 15 mmol/L [facility] BUN 47(H) 6 - 25 mg/dL [facility] Creatinine 3.92(H) 0.80 - 1.30 mg/dL [facility] Glucose 104 70 - 199 mg/dL [facility] Comment: Interpretive Data Fasting glucose >/= 126 [...] classification and Diagnosis of Diabetes Diabetes Care 2022; 46: S19-S40. Current interpretive data was last revised 2022. Calcium 10.1 8.5 - 10.3 mg/dL MICHAELLE Blood 12/15/2024 7:56 AM CDT 12/15/2024 8:00 AM CDT Naeem Stephens MD LAB BLOOD ORDERABLES Final Resul t Performing Organization Address City/State/[facility] Co oh Phone Number MICHAELLE [address] [facility] Department [place] [address] * (ABNORMAL) POCT lipid panel (09/29/2024 12:17 [...] % Estimated Average Glucose 143 mg/dL MICHAELLE [facility] Comment: The ADA recommends reporting an [...] PhD LAB BLOOD ORDERABLES F inal Result Performing Organization Address City/State/[facility] Co de Phone Number MICHAELLE H [facility] [place] [address] * Hepatitis panel, acute Blood (07/08/2023 7:12 AM SENIOR BI DEVELOPER) Hep A IgM Nonreactive Nonreactive [facility] Comment: Interpretive Data: If Hep A IgM Ab is reported as Equivocal, a new sample should be drawn in two weeks for testing. Current interpretive data was last revised on 19. Hep B core IgM Nonreactive Nonreactive [facility] Comment: Interpretive Data If HepB Core IgM Ab is reported as Equivocal, a new sample should be drawn in two weeks for testing. Current interpretive data was last revised on 19. Hep C Ab Nonreactive Nonreactive [facility] Comment: Interpretive Data Nonreactive: Antibodies to HCV [...] last revised on 2019. HepBsAg Nonreactive Nonreactive [facility] Blood 07/08/2023 7:12 AM SENIOR BI DEVELOPER 07/08/2023 7:23 AM SENIOR BI DEVELOPER us Sameed Yecenia Ellsworth MD LAB MICROBIOLOGY - GENERA L ORDERABLES Final Result Performing Organization Address City/[facility] Co de Phone Number [facility] [address] [place] [address] from Last 3 Months or Most Recently Relevant to Health Maintenance Insurance [employer] [facility] MEDICARE [facility] MEDICARE Address: [address] [address] [place] [address] [facility] [employer] CHOICE MEDICARE PPO [employer]PA [employer] MEDICARE PPO [facility] MEDICARE [facility] MEDICARE Address: [address] [address] [place] [address] Advance Directives For more information, please contact: [phone] * Full Code (Latest Code Status on [...] 3:25 PM 02/10/2022 6:01 PM Care Teams Pit And Auxiliaries Supervisor Relationship Specialty Start Date End Date Srikanth Hernandez MD PCP - General Family Medicine 10/16/19 Estiven Dubois MD [address] [address] Consulting Physician Nephrology 10/23/21 Rebecca Zuluaga NP [address] [address] Nurse Practitioner Cardiology 12/27/21 Mathew Plummer MD [address] [place] [address] [address] Consulting Physician Interventional Cardiology 04/14/22 Srikanth Stephens MD [address] [facility] [address] [facility] [address] [place] [address] Surgeon Surgery 04/28/22 Tootie Kraft, ELANA [address] [place] [address] Nurse Practitioner Medical Oncology 05/22/22 Minoo Mcgowan MD PhD [address] [place] [address] Registered Nurse Vascular Surgery 01/06/24
--- OUTSIDE RECORDS SUMMARY | 2025-03-06 11:37 | XMS_ITS | Encounter Summary ---
Author Organization [facility] Healthcare Address [address] [place] [address] Care Team Providers Care Shot Fireman Name Role Phone Srikanth Hernandez MD Primary Care Prov ider Bon Izquierdo MD Unavailable [phone] Estiven Dubois MD Unavailable [phone] Rebecca Zuluaga INSURANCE SALES EXECUTIVE Unavailable [phone] Mathew Plummer MD Unavailable + [phone] Srikanth Stephens MD Unavailable [phone] Tootie Kraft INSURANCE SALES EXECUTIVE Unavailable + [phone] Minoo Mcgowan MD PhD Unavailable [phone] Encounter Details Date Type Department Care Team (Late st Contact Info) Description 04/18/2022 Telephone [facility] Dialysis Access Center at [facility] [address] [facility] [address] [place] [address] Srikanth Stephens MD [address] [facility] [address] [place] [address] Social History Tobacco Use Types Packs/Day Years [...] often do you attend chur ch or catholic services? Never 02/07/2022 Do you belong to any clubs o r organizations such as yazidism groups, unions, fraternal or athletic groups, or [...] place to sleep or slept in a half-way (including now)? No 02/07/2022 Sex and Gender Information Value Date Recorded Sex Assigned at Not on file Legal Sex Male 6:58 PM MANAGER BANK Gender Identity Not on file Sexual Orientation Not on file documented as of this encounter Functional Status documented as of this encounter Plan of Treatment Not on file documented as of this encounter Visit Diagnoses Not on filedocumented in this encounter Additional Health Concerns Infection Onset Date Last Indicated Resolved Time COVID: Suspected 04/30/2022 04/30/2022 04/30/2022 11:31 AM MANAGER BANK documented as of this encounter Care Teams Shot Fireman Relationship Specialty Start Date End Date Srikanth Hernandez MD PCP - General Family Medicine 10/16/19 Bon Izquierdo MD Consulting Physician Medical Oncology 10/21/21 05/21/22 Estiven Dubois MD [address] [address] Consulting Physician Nephrology 10/23/21 Rebecca Zuluaga NP [address] [address] Nurse Practitioner Cardiology 12/27/21 Mathew Plummer MD [facility] [facility] [address] [address] Consulting Physician Interventional Cardiology 04/14/22 Srikanth Stephens MD [address] [facility] [address] [facility] [address] [place] [address] Surgeon Surgery 04/28/22 Tootie Kraft, ELANA [address] [place] [address] Nurse Practitioner Medical Oncology 05/22/22 Minoo Mcgowan MD PhD [id number] [place] [address] Registered Nurse Vascular Surgery 01/06/24 documented as of this encounter
--- OUTSIDE RECORDS SUMMARY | 2025-03-06 11:37 | XMS_ITS | Encounter Summary ---
Author Organization [facility] Healthcare Address [address] [place] [address] Care Team Providers Care Isotope Technologist Name Role Phone Srikanth Hernandez MD Primary Care Prov ider Estiven Dubois MD Unavailable [phone] Rebecca Zuluaga PROJECT EXECUTIVE Unavailable [phone] Mathew Plummer MD Unavailable + [phone] Srikanth Stephens MD Unavailable [phone] Tootie Kraft PROJECT EXECUTIVE Unavailable + [phone] Minoo Mcgowan MD PhD Unavailable [phone] Encounter Details Date Type Department Care Team (Late st Contact Info) Description 11/13/2023 Telephone [facility] Dialysis Access Center at [facility] [address] [facility] [address] [place] [address] Srikanth Stephens MD [address] [place] [address] [address] [facility] [address] [place] [address] Social History Tobacco Use Types Packs/Day Years [...] often do you attend chur ch or church services? Never 02/07/2022 Do you belong to any clubs o r organizations such as samaritan groups, unions, fraternal or athletic groups, or [...] in a prison (including now)? No 02/07/2022 Personal Safety Answer Date Recorded Have you ever been in or are you currently in a harmful physical or emotional relationship or is someone making you feel afraid or unsafe? 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 Gender Identity Not on file Sexual Orientation Not on file documented as of this encounter Plan of Treatment Not on file documented as of this encounter Visit Diagnoses Not on filedocumented in this encounter Care Teams Isotope Technologist Relationship Specialty Start Date End Date Srikanth Hernandez MD PCP - General Family Medicine 10/16/19 Estiven Dubois MD [address] [id number] Consulting Physician Nephrology 10/23/21 Rebecca Zuluaga NP [address] [id number] Nurse Practitioner Cardiology 12/27/21 Mathew Plummer MD [facility] [address] Consulting Physician Interventional Cardiology 04/14/22 Srikanth Stephens MD [address] [facility] [address] [facility] [address] [place] [address] Surgeon Surgery 04/28/22 Tootie Kraft NP [facility] [id number] Nurse Practitioner Medical Oncology 05/22/22 Minoo Mcgowan MD PhD [address] [place] [address] Registered Nurse Vascular Surgery 01/06/24 documented as of this encounter
--- OUTSIDE RECORDS SUMMARY | 2025-03-06 11:37 | XMS_ITS ---
Author Organization [facility] [address] Address [address] [place] [address] Care Team Providers Care Trail Maintenance Worker Name Role Phone Srikanth Hernandez MD Primary Care Prov ider Estiven Dubois MD Unavailable [phone] Rebecca Zuluaga NP Unavailable Mathew Plummer MD Unavailable [phone] Srikanth Stephens MD Unavailable [phone] Tootie Kraft NP Unavailable [phone] Minoo Mcgowan MD PhD Unavailable Dialysis Access Sites Type Status Location Placement Date Removal Da te AV graft Active Left Upper Arm - Anterior 04/28/2022 Procedures Procedure Name Priority Date/Time Associated Diagnosis Comments INTRO CATH DIALYSIS CIRCUIT DX ANGRPH FLUOR 66870 Routine 12/15/2024 10:01 AM CDT ESRD (end [...] HEPATITIS PANEL, ACUTE STAT 07/08/2023 7:12 AM DYE LINE OPERATOR from Last 3 Months or Most Recently [...] of L carotid artery. Patient transferred to [facility] for further evaluation and treatment. - [...] reports a follow up appointment with his keno clerk on Thursday. Recommend patient to take blood pressure medication at home and monitor blood pressures at home. Also advised patient to notify primary care provider/keno clerk of elevated blood pressure for further management. [...] dialysis. Assessment & Plan (03/31/2024 4:40 PM DYE LINE OPERATOR): Patient with increased velocity associated with left axillary stent, fortunately asymptomatic. Will plan for left upper extremity AV fistulogram with possible intervention. Risks of the procedure including but not limited to bleeding, infection, nerve injury, stroke, , myocardial infarction communicated patient full understanding. Wished to proceed Assessment & Plan (12/29/2023 10:36 AM CDT): - CAITLINE AV fistula, dialyzes MWF at [facility] - Renal consult for inpatient HD Assessment [...] procedure. Assessment & Plan (04/14/2022 10:44 AM DYE LINE OPERATOR): Patient seen today for new access evaluation. [employer] is Dr. Dubois. Previous vein mapping obtained [...] glipizide Assessment & Plan (04/14/2022 10:41 AM DYE LINE OPERATOR): History of diabetes that is being controlled [...] often do you attend chur ch or presybeterian services? Never 02/07/2022 Do you belong to any clubs o r organizations such as religious groups, unions, fraternal or athletic groups, or [...] place to sleep or slept in a snf (including now)? No 02/07/2022 Personal Safety Answer Date Recorded Have you ever been in or are you currently in a harmful physical or emotional relationship or is someone making you feel afraid or unsafe? 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 us Naeem Stephens MD CV CARDIAC CATH PROCEDURES Final Result * (ABNORMAL) eGFR (12/15/2024 7:56 AM CDT) [facility] eGFR 15(L) >=60 mL/min/1. 73 m2 Comment: [...] MD LAB BLOOD ORDERABLES Final Resul t [facility] [address] [facility] Department of Laboratories [place], [place] [id number] * (ABNORMAL) Differential, auto (12/15/2024 7:56 AM CDT) [facility] Neutrophil abs 4.36 1.50 - 6.50 K/cumm Imm gran abs 0.02 0.00 - 0.10 K/cumm [facility] Lymphocyte abs 1.18 0.80 - 3.30 K/cumm [facility] Monocyte abs 0.60 0.20 - 0.80 K/cumm [facility] Eosinophil abs 0.55(H) 0.00 - 0.50 K/cumm [facility] Basophil abs 0.04 0.00 - 0.10 K/cumm [facility] Neutrophil pct 64.6 % [facility] Comment: Interpretive Data Percent cell count reference ranges are not reported, since discordance with absolute values may lead to misinterpretation of CBC data. Current Interpretive Data was last revised on 2017. Imm gran pct 0.3 % [facility] Comment: Interpretive Data Percent cell count reference ranges are not reported, since discordance with absolute values may lead to misinterpretation of CBC data. Current Interpretive Data was last revised on 2017. Lymphocyte pct 17.5 % [facility] Comment: Interpretive Data Percent cell count reference ranges are not reported, since discordance with absolute values may lead to misinterpretation of CBC data. Current Interpretive Data was last revised on 2017. Monocyte pct 8.9 % [facility] Comment: Interpretive Data Percent cell count reference ranges are not reported, since discordance with absolute values may lead to misinterpretation of CBC data. Current Interpretive Data was last revised on 2017. Eosinophil pct 8.1 % [facility] Comment: Interpretive Data Percent cell count reference ranges are not reported, since discordance with absolute values may lead to misinterpretation of CBC data. Current Interpretive Data was last revised on 2017. Basophil pct 0.6 % [facility] Comment: Interpretive Data Percent cell count reference ranges are not reported, since discordance with absolute values may lead to misinterpretation of CBC data. Current Interpretive Data was last revised on 2017. Blood 12/15/2024 7:56 AM CDT 12/15/2024 8:00 AM CDT Naeem Stephens MD LAB BLOOD ORDERABLES Final Resul t [facility] [address] [facility] Department [place] [address] * (ABNORMAL) CBC with auto differential (12/15/2024 7:56 AM CDT) WBC 6.75 3.80 - 9.90 K/cumm Hgb 10.0(L) 13.0 - 17.5 g/dL [facility] Hct 31.1(L) 38.9 - 50.3 % [facility] Plt 103(L) 150 - 400 K/cumm [facility] MPV 9.0(L) 9.1 - 12.3 fL [facility] RBC 3.39(L) 4.30 - 5.80 M/cumm [facility] MCV 91.7 81.3 - 96.4 fL [facility] MCH 29.5 27.1 - 33.3 pg [facility] MCHC 32.2(L) 32.3 - 35.7 g/dL [facility] RDW CV 15.8(H) 11.1 - 14.9 % [facility] RDW SD 52.7(H) 35.7 - 48.1 fL [facility] NRBC abs 0.00 0.00 - 0.01 K/cumm [facility] Blood 12/15/2024 7:56 AM CDT 12/15/2024 8:00 AM CDT Naeem Stephens MD LAB BLOOD ORDERABLES Final Resul t Performing Organization Address [facility] de Phone Number [address] [employer] [place] [address] * (ABNORMAL) Protime-INR (12/15/2024 7:56 AM CDT) PT 14.70(H) 12.00 - 14.60 sec Comment:Ref Range High INR 1.14 0.90 - 1.20 [facility] Comment: Ref Range High Interpretive data Oral [...] ORDERABLES Final Resul t Performing Organization Address [facility] de Phone Number [address] [place] [address] * (ABNORMAL) Basic metabolic panel (12/15/2024 7:56 AM CDT) Pathologist [facility] Sodium 141 135 - 145 mmol/L Potassium, pl 3.9 3.3 - 4.9 mmol/L [facility] Chloride 98 97 - 110 mmol/L [facility] CO2 28 22 - 32 mmol/L [facility] Anion gap 15 2 - 15 mmol/L [facility] BUN 47(H) 6 - 25 mg/dL [facility] Creatinine 3.92(H) 0.80 - 1.30 mg/dL [facility] Glucose 104 70 - 199 mg/dL [facility] Comment: Interpretive Data Fasting glucose >/= 126 [...] 2022. Calcium 10.1 8.5 - 10.3 mg/dL [facility] Blood 12/15/2024 7:56 AM CDT 12/15/2024 8:00 AM CDT us Naeem Stephens MD LAB BLOOD ORDERABLES Final Resul t [facility] [address] [facility] Department [place] [address] * (ABNORMAL) POCT lipid panel (09/29/2024 12:17 PM CDT) Pathologist [facility] Cholesterol, POC 100 <200 MG/DL HDL, POC [...] 5.6 % Estimated Average Glucose 143 mg/dL [facility] Comment: The ADA recommends reporting an [...] PhD LAB BLOOD ORDERABLES F inal Result [facility] Department [place] [address] * Hepatitis panel, acute Blood (07/08/2023 7:12 AM DYE LINE OPERATOR) Pathologist [facility] Hep A IgM Nonreactive Nonreactive [facility] Comment: Interpretive Data: If Hep A IgM Ab is reported as Equivocal, a new sample should be drawn in two weeks for testing. Current interpretive data was last revised on 19. Hep B core IgM Nonreactive Nonreactive [facility] Comment: Interpretive Data If HepB Core IgM Ab is reported as Equivocal, a new sample should be drawn in two weeks for testing. Current interpretive data was last revised on 19. Hep C Ab Nonreactive Nonreactive [facility] Comment: Interpretive Data Nonreactive: Antibodies to HCV [...] revised on 2019. HepBsAg Nonreactive Nonreactive [facility] Blood 07/08/2023 7:12 AM DYE LINE OPERATOR 07/08/2023 7:23 AM DYE LINE OPERATOR us Sameed Yecenia Ellsworth MD LAB MICROBIOLOGY - GENERA L ORDERABLES Final Result [facility] [address] Department [place] [address] from Last 3 Months or Most Recently Relevant to Health Maintenance
--- NOTE | 2025-03-06 12:19 | ED.GENADULT ---
HPI - General Adult General Chief complaint: Weakness Stated complaint: weakness, UTI Time Seen by Provider: 03/06/25 12:08 Source: patient Mode of arrival: EMS Limitations: no limitations History of Present Illness HPI narrative: This is a 79-year-old male with history of diabetes, hyperlipidemia, ESRD on dialysis Thursday, CAD who presents the ED for weakness. Patient states that he woke up this morning and was unable at get out of bed just feeling weak. He states that he had a very brief episode of nausea but has had no other symptoms otherwise. Denies chest pain, shortness of breath, abdominal pain. He did have a Negron catheter placed a week or so ago due to urinary retention may have but does not report any specific pain related to that at this time. Denies any changes in medications. He has been getting dialysis as scheduled except that he has missed today. Related Data Home Medications ?Medication ?Instructions ?Recorded ?Confirmed ?Last Taken ?Type ferrous sulfate 325 mg (65 mg 325 mg PO BID 01/10/22 08/05/24 07/31/22 21:00 History iron) tablet (Iron (ferrous sulfate)) apixaban 5 mg tablet (Eliquis) 5 mg PO BID 01/11/22 08/05/24 07/31/22 21:00 History clopidogrel 75 mg tablet 75 mg PO DAILY 12/10/23 08/05/24 Unknown History loratadine 10 mg capsule 10 mg PO EVERY OTHER DAY 01/06/24 08/05/24 Unknown History rosuvastatin 10 mg tablet 10 mg PO DAILY 01/06/24 08/05/24 Unknown History coenzyme [id number] E 100 mg-100 cap PO 01/21/24 08/05/24 Unknown History unit capsule Allergies Allergy/AdvReac Type Severity Reaction Status Date / Time Sulfa (Sulfonamide Allergy Unknown Rash,Unknow Verified 03/06/25 11:34 Antibiotics) n,Unknown,R isaiah sitagliptin (From Mayuvia) Allergy Rash Verified 03/06/25 11:34 Tea Allergy Nausea and Uncoded 03/02/25 08:47 Vomiting Review of Systems Review of Systems: Gen.: Denies fevers or chills Eyes: Denies eye pain or visual change ENT: Denies congestion Respiratory: Denies shortness of breath or cough CV: Denies chest pain or palpitations GI: Denies abdominal pain nausea, emesis or diarrhea denies burning, urgency, frequency or hematuria Musculoskeletal: Denies back pain or muscle pain Neuro: Denies numbness, tingling, weakness or focal weakness Skin: Denies rash Except as documented, all other systems reviewed and negative [facility] Past Medical History Medical History Acute CVA (cerebrovascular accident) (12/2023) Diabetic neuropathy Diabetic retinopathy Pulmonary hypertension Combined systolic and diastolic congestive heart failure Echocardiogram 10/2021: Mild concentric left ventricular hypertrophy, moderate left ventricular enlargement, moderate global left ventricular systolic dysfunction with EF of 30%, diastolic dysfunction, severe left atrial enlargement, mild right atrial enlargement, mild aortic valve regurgitation, moderate pulmonary hypertension with RVSP of 53, moderate tricuspid regurgitation End-stage renal disease Hemodialysis started June 2022; managed by Dr. 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 Abnormal thumb on the left hand Anemia of chronic disease Pneumonia due to COVID-19 virus Allergic rhinitis Chronic sinusitis Eczema Ulcer Hyperlipidemia COVID-19 10/04 and 08/01/2022 Surgical History Surgical History Status post creation of arteriovenous fistula Left upper arm Status post cataract extraction of both eyes with insertion of intraocular lens Family History Family History Father Lung cancer Daughter Chronic lung disease Morbid obesity Grandparent Asthma Mother Hypertension Other Diabetes mellitus Heart disease Malignant neoplasm of prostate Social History Social History Social History: The patient is and lives with his of 47 years. He is a lifelong nonsmoker. He did chew tobacco. Primary care physician: Dr. Srikanth Danielson Code status: Full code Surrogate decision maker: Smoking status: Never smoker Smokeless tobacco user: chewing tobacco Second hand tobacco smoke exposure: No Alcohol intake: former Alcohol use details: He reports that he drank heavily until 1975 when he found Jovani. Substance use: never Substance use type: does not use Do You Feel Safe in your Home?: Yes Lack of Transportation: No Lack of Food: Never True Current Housing: I Have Housing Concerned About Future Housing: No Difficulty Paying Gas/Electric Bills: No Difficulty Paying for Meds: No Currently Unemployed: No Education: Decline to Answer Difficulty w/ Childcare or Family Care: No Living arrangements: with family Additional living arrangements comments: He lives in [place] with his of 47 years. He has total of 6 children 5 of which are still living and her relatively healthy. He had 1 daughter who of morbid obesity and chronic lung disease. 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 Gender identity (if verbalized by the patient): Male Sexual Orientation (if Verbalized by the Patient): Straight or Heterosexual Spiritual care concerns: No Agree to blood products: Yes Exam Narrative: APPEARANCE: No acute distress, nontoxic, resting in bed EYES: EOMI HEENT: Normocephalic, atraumatic, mucous membranes mildly dry RESPIRATORY: No respiratory distress Clear to auscultation bilaterally with no rhonchi wheezing or rales. CARDIOVASCULAR: Irregularly irregular without murmurs rubs or gallops. ABDOMINAL: Soft, nontender, nondistended, no rebound or guarding : Three way negron in place with necrosis over the urethral meatus MUSCULOSKELETAl: Moves all extremities. No clubbing, cyanosis or edema. Fistula to left upper extremity with palpable thrill NEURO: Awake and alert. Following commands, speech normal, no focal deficits. 3/5 strength to all extremities SKIN:: Warm, dry. No rashes lesions or abrasions PSYCHIATRIC: Normal affect/mood, Course Vital Signs Vital signs: Vital Signs Temperature 98.1 F 03/06/25 10:14 Pulse Rate 72 03/06/25 10:14 Respiratory Rate 20 03/06/25 10:14 Blood Pressure 159/63 H 03/06/25 10:14 Pulse Oximetry 100 03/06/25 10:14 Oxygen Delivery Room Air 03/06/25 10:14 Temperature 97.6 F 03/06/25 11:27 Pulse Rate 78 03/06/25 14:30 Respiratory Rate 19 03/06/25 14:30 Blood Pressure 152/74 H 03/06/25 14:30 Pulse Oximetry 94 03/06/25 14:30 Oxygen Delivery Room Air 03/06/25 11:27 Medical Decision Making MDM Narrative Medical decision making narrative: 79-year-old male presenting for weakness. On initial evaluation, patient was in no acute distress afebrile, hemodynamically stable. Heart and lungs clear. Abdomen soft and nontender. exam did reveal a 3 way Ne[address] catheter in place with what appeared to be pressure necrosis to the urethral meatus. This may be the source of the patient's weakness. He had a leukocytosis of 11.5. Mild anemia at 10 which is his baseline. Creatinine and BUN were elevated consistent with his ESRD but potassium and phosphorus were within normal limits. Troponin was elevated but this is his baseline considering his ESRD. Spoke with Dr. Ortiz, urology, given presumed pressure necrosis of the urethral meatus due to three way negron. Urology evaluated the patient, recommended changing to 16 or 14fr negron and will see in the office in the next couple days for reevaluation. Agree with keflex. UA not consistent with UTI. Patient was able to sit up in bed and transfer to chair such as his baseline at home. Therefore, he was deemed appropriate discharge his time. He was given a prescription for Keflex. Patient was agreeable to this plan. Given strict return precautions. Differential Diagnosis Differential Diagnosis: ACS, arrhythmia, electrolyte abnormality, viral syndrome, pneumonia Medical Records Medical records reviewed: Yes I reviewed the external patient's medical records. Vital Signs Vital Signs: Vital Signs Temperature 98.1 F 03/06/25 10:14 Pulse Rate 72 03/06/25 10:14 Respiratory Rate 20 03/06/25 10:14 Blood Pressure 159/63 H 03/06/25 10:14 Pulse Oximetry 100 03/06/25 10:14 Oxygen Delivery Room Air 03/06/25 10:14 Temperature 97.6 F 03/06/25 11:27 Pulse Rate 78 03/06/25 14:30 Respiratory Rate 19 03/06/25 14:30 Blood Pressure 152/74 H 03/06/25 14:30 Pulse Oximetry 94 03/06/25 14:30 Oxygen Delivery Room Air 03/06/25 11:27 Lab Data Lab results reviewed: Yes I reviewed the patient's lab results. 03/06/25 12:46 03/06/25 12:46 Labs: Lab Results 03/06/25 03/06/25 03/06/25 Range/Units 12:46 12:53 15:34 WBC 11.5 H (4.5-10.0) K/mm3 RBC 3.59 L (4.6-6.20) M/mm3 Hgb 10.0 L (14.0-18.0) g/dL Hct 32.9 L (42.0-52.0) % MCV 91.6 (80-100) fl MCH 27.9 (26-34) pg MCHC 30.4 L (32-36) g/dl RDW 16.1 H (11.5-14.5) % Plt Count 219 D (150-375) k/mm3 MPV 8.7 (7.4-10.4) fl Immature Gran % (Auto) 0.6 H (0-0.5) % Neut % (Auto) 86.2 H (45.5-73.1) % Lymph % (Auto) 6.4 L (18.3-44.2) % Bowman % (Auto) 5.2 (2.6-8.5) % Eos % (Auto) 1.3 (0-4.4) % Baso % (Auto) 0.3 (0.2-1.2) % Lymph # (Auto) 0.73 L (0.9-3.2) K/mm3 Bowman # (Auto) 0.6 (0.1-0.6) K/mm3 Eos # (Auto) 0.2 (0-0.3) K/mm3 Baso # (Auto) 0.0 (0.0-0.1) K/mm3 Abs Immat Gran (auto) 0.07 H (0.00-0.031) K/mm3 Absolute Neuts (auto) 9.9 H (1.3-6.7) K/mm3 Absolute Nucleated RBC 0.000 (0.0-0.012) K/mm3 Nucleated RBC % 0.0 (0.0-0.2) % Sodium 137 (137-145) mmol/L Potassium 4.2 (3.4-5.0) mmol/L Chloride 94 L (98-107) mmol/L Carbon Dioxide 30 (22-30) mmol/L Anion Gap 13 H (4-12) mmol/L BUN 62 H (9-20) mg/dL Creatinine 6.62 H (0.7-1.3) mg/dL Estim Creat Clear Calc 9 ml/min Estimated GFR 8 L (59 - ) Glucose 131 H (65-110) mg/dL Lactic Acid 0.9 (0.7-2.0) mmol/L Calcium 10.6 H (8.4-10.2) mg/dL Phosphorus 4.0 (2.5-4.5) mg/dL Magnesium 2.7 H (1.6-2.3) mg/dL Total Bilirubin 0.5 (0.2-1.3) mg/dL AST 33 (17-59) U/L ALT 16 (6-50) U/L Alkaline Phosphatase 100 (38-126) U/L Troponin I 0.049 H* 0.049 H* (0.000-0.034) ng/mL Total Protein 7.8 (6.3-8.2) g/dL Albumin 3.8 (3.5-5.1) g/dL Urine Color Yellow (Yellow) Urine Appearance Cloudy H (Clear) Urine pH 8.0 (5.0-9.0) Ur Specific Cameron 1.008 (1.001-1.035) Urine Protein 2+ H (Negative) mg/dL Urine Glucose (UA) Negative (Negative) mg/dL Urine Ketones Trace H (Negative) mg/dL Ur Blood (Man) 1+ H (Negative) Urine Nitrate Negative (Negative) Urine Bilirubin Negative (Negative) Urine Urobilinogen 0.2 (<2.0) mg/dL Add Ur Microanalysis Reviewed Leukocyte Esterase Rfl 2+ H (Negative) JASMINA/UL Urine RBC 0-2 (0-2) /hpf Urine WBC 0-5 (0-3) /hpf Ur Squamous Epith Cells None seen (Few) /hpf Urine Bacteria None seen /hpf Urine Casts 0-2 Influenza A (RT-PCR) Negative (Negative) Influenza B (RT-PCR) Negative (Negative) RSV (RT-PCR) Negative (Negative) SARS-CoV-2 RNA (RT-PCR) Negative (Negative) Imaging Data Attestation: I personally reviewed and interpreted this imaging study as follows: My impression: Chest x-ray: Mild pulmonary vascular congestion without any consolidations Radiologist's impression: Impressions Chest X-Ray 03/06/25 12:00 IMPRESSION: 1: NO ACUTE CARDIOPULMONARY DISEASE. Discharge Plan Discharge Clinical Impression: Cellulitis and necrosis of penis, ESRD (end stage renal disease) on dialysis Patient Disposition: Home Condition: Stable Instructions: Antibiotic Form, Cellulitis (ED), Negron Catheter Placement and Care (ED) Additional Instructions: Keep Negron catheter in place. Follow up with the Urology in the next 2 days for re-evaluation of need for Negron catheter and for the cellulitis on your penis. Take Keflex as prescribed for the cellulitis. Continue to take the other antibiotic you were prescribed by your PCP. Return to the ED for any new or worsening symptoms. Patient Language: Kittitian Prescriptions: New cephalexin 500 mg capsule 500 mg PO Q6H Qty: 28 0RF No Action clopidogrel 75 mg tablet 75 mg PO DAILY coenzyme [id number] E 100-100 mg-unit capsule PO ciprofloxacin HCl 250 mg tablet 250 mg PO .complex 5 Days Qty: 6 0RF Rx Instructions: Take 2 tablets (500 mg) for 1 day then 1 tablet (250 mg) once daily for 4 days. ferrous sulfate [Iron (ferrous sulfate)] 325 mg (65 mg iron) Tablet 325 mg PO BID Eliquis 5 mg tablet 5 mg PO BID (DME) blood-glucose meter [Norsteluch Ultra2 Meter] Kit See Rx Instructions .Route Qty: 1 0RF Rx Instructions: use to check blood sugar qd carvedilol 12.5 mg tablet See Rx Instructions .ROUTE .COMPLEX Qty: 180 3RF Dose Instruction: TAKE 1 TABLET BY MOUTH TWICE DAILY WITH MEALS Rx Instructions: TAKE 1 TABLET BY MOUTH TWICE DAILY WITH MEALS (DME) Accu-Chek Guide test strips Strip See Rx Instructions .Route Qty: 100 2RF Rx Instructions: Use to check blood glucose level once daily. (DME) blood-glucose meter [Accu-Chek Guide Me Glucose Mtr] Misc See Rx Instructions .Route Qty: 1 0RF Rx Instructions: Use to check blood glucose level once daily. furosemide 40 mg tablet See Rx Instructions .ROUTE .COMPLEX Qty: 180 0RF Dose Instruction: Take 1 tablet by mouth twice daily Rx Instructions: Take 1 tablet by mouth twice daily (DME) lancets [OneTouch Delica Plus Lancet] 30 gauge misc See Rx Instructions .ROUTE .COMPLEX Qty: 100 1RF Dose Instruction: USE 1 UNIT TO CHECK GLUCOSE ONCE DAILY Rx Instructions: USE 1 UNIT TO CHECK GLUCOSE ONCE DAILY glipizide 5 mg tablet See Rx Instructions .ROUTE .COMPLEX Qty: 180 1RF Dose Instruction: Take 1 tablet by mouth twice daily Rx Instructions: Take 1 tablet by mouth twice daily Triphrocaps 1 mg capsule See Rx Instructions .ROUTE .COMPLEX Qty: 90 1RF Dose Instruction: Take 1 capsule by mouth once daily Rx Instructions: Take 1 capsule by mouth once daily rosuvastatin 10 mg Tablet 10 mg PO DAILY loratadine 10 mg Capsule 10 mg PO EVERY OTHER DAY hydralazine 25 mg Tablet 50 mg PO TID 30 Days Qty: 180 0RF cholecalciferol (vitamin D3) 50 mcg (2,000 unit) Tablet 50 mcg PO BID Qty: 30 0RF Follow-up/Referrals: Torrey Ortiz MD [Physician, Urology] Kerry Walker DO [Primary Care Provider, Family Practice]
[2025-03-06 13:12] LABS: Hematocrit 32.9 % (42.0-52.0); Hemoglobin 10.0 g/dL (14.0-18.0); Immature Granulocyte Percent A 0.6 % (0-0.5); Lymphocytes Absolute Auto 0.73 K/mm3 (0.9-3.2); Mean Corpuscular HGB Conc 30.4 g/dl (32-36); Mean Corpuscular Hemoglobin 27.9 pg (26-34); Mean Corpuscular Volume 91.6 fl (80-100); Nucleated Red Blood Cells Absolute Auto 0.000 K/mm3 (0.0-0.012); Nucleated Red Blood Cells Perc 0.0 % (0.0-0.2); Platelet Count Result 219 k/mm3 (150-375); Red Blood Count 3.59 M/mm3 (4.6-6.20); White Blood Count 11.5 K/mm3 (4.5-10.0)
[2025-03-06 13:27] LABS: Alanine Aminotransferase 16 U/L (6-50); Albumin Level 3.8 g/dL (3.5-5.1); Alkaline Phosphatase 100 U/L (38-126); Anion Gap 13 mmol/L (4-12); Aspartate Amino Transferase 33 U/L (17-59); Bilirubin,Total 0.5 mg/dL (0.2-1.3); Blood Urea Nitrogen 62 mg/dL (9-20); Calcium 10.6 mg/dL (8.4-10.2); Carbon Dioxide 30 mmol/L (22-30); Chloride 94 mmol/L (98-107); Estimated CRCL calculation 9 ml/min; Estimated Glomerular Filt Rate 8; Glucose 131 mg/dL (65-110); Magnesium 2.7 mg/dL (1.6-2.3); Potassium 4.2 mmol/L (3.4-5.0); Sodium 137 mmol/L (137-145); Total Protein 7.8 g/dL (6.3-8.2)
[2025-03-06] MEDS: DOXYCYCLINE IV 100 MG in SODIUM CHLORIDE 0.9% IV 100 ML IVPB (13:32)
[2025-03-06 13:38] LABS: Troponin I 0.049 ng/mL (0.000-0.034)
[2025-03-06 13:43] LABS: Influenza A QL RT-PCR Negative (Negative); Influenza B QL RT-PCR Negative (Negative); RSV RNA, RT-PCR Negative (Negative); SARS-CoV-2 RNA PCR Negative (Negative)
[2025-03-06 14:56] LABS: Add Urine Microscopic? YES; Appearance Urine Cloudy (Clear); Glucose Urine UA Negative (Negative); Leukocyte Esterase Ur 2+ LEU/UL (Negative); Need Manual Microscopic Reviewed; Nitrate Urine Negative (Negative); Non Pathogenic Casts 0-2; Specific Grav Ur 1.008 (1.001-1.035)
--- NOTE | 2025-03-06 15:22 | ECG_ITS ---
Test Date: 2025-03-06 15:26:14 Measurements Intervals [place] Rate: 87 P: 0 TN: 0 QRS: -36 QRSD: 122 T: 70 QT: 357 QTc: 431 Interpretive Statements ATRIAL FIBRILLATION WITH FREQUENT VENTRICULAR PREMATURE COMPLEXES LEFT AXIS DEVIATION INTRAVENTRICULAR CONDUCTION DELAY CONSIDER ANTERIOR INFARCT, AGE INDETERMINATE BORDERLINE ST-T WAVE ABNORMALITY- HIGH LATERAL LEADS BASELINE ARTIFACT- I, III ABNORMAL ECG Compared to ECG 03/06/2025 11:41:54 NO SIGNIFICANT CHANGE Electronically Signed On 03-06-2025 16:09:41 CDT by Wilfredo Hernández D.O.
[2025-03-06] MEDS: cefTRIAXone 2 GM in SODIUM CHLORIDE 0.9% IV 100 ML 200 ML IVPB (15:38)
--- NOTE | 2025-03-06 16:19 | P.CONUR_ITS ---
Assessment and Plan Assessment and plan (1) Sheriff catheter in place: Code(s): Z97.8 - Presence of other specified devices Status: Acute Assessment and Plan: - Appears to be 2/2 clot retention. Will need further eval as outpatient for hematuria - Pt likely can have catheter removed; will see in clinic this week for void trial as being discharged home from ED (2) Penile lesion: Code(s): N48.9 - Disorder of penis, unspecified Status: Acute Assessment and Plan: - Necrotic appearing wound on superior penile meatus likely 2/2 pressure from large Fr Sheriff catheter - Agree with downsize to smaller Sheriff catheter as urine is currently clear - Agree with transition to PO Keflex for infection coverage - Will assess further in outpatient setting Urology Consult Note HPI Date Seen: 03/06/25 Primary Care Provider: Kerry Walker, Consult Narrative Narrative: Pt is a 79 year old M with recent ED presentation for gross hematuria with clots (02/26/2025) with 22 Fr Sheriff catheter placed at that time who is seen in the ED for generalized weakness for whom urology is consulted for penile meatus necrosis. Pt states that Sheriff catheter has been draining clear, yellow urine without issue since his discharge from ED. Has been developing painful wound on the penis above the Sheriff catheter which has been worsening over time. States that prior to presentation for hematuria he was emptying his bladder without issue. Review of Systems 2 Constitutional: Constitutional: Denies body ache(s) Eyes: Eyes: Denies photophobia ENT: Reports Normal hearing present Gastrointestinal: Gastrointestinal: Denies abdominal pain and Denies constipation Genitourinary: Genitourinary: Denies hematuria Comments: Penile pain Neurologic: Denies Abnormal speech present [facility] Past Medical History Medical History Acute CVA (cerebrovascular accident) (12/2023) Diabetic neuropathy Diabetic retinopathy Pulmonary hypertension Combined systolic and diastolic congestive heart failure Echocardiogram 10/2021: Mild concentric left ventricular hypertrophy, moderate left ventricular enlargement, moderate global left ventricular systolic dysfunction with EF of 30%, diastolic dysfunction, severe left atrial enlargement, mild right atrial enlargement, mild aortic valve regurgitation, moderate pulmonary hypertension with RVSP of 53, moderate tricuspid regurgitation End-stage renal disease Hemodialysis started June 2022; managed by Dr. 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 Abnormal thumb on the left hand Anemia of chronic disease Pneumonia due to COVID-19 virus Allergic rhinitis Chronic sinusitis Eczema Ulcer Hyperlipidemia COVID-19 10/04 and 08/01/2022 Surgical History Surgical History Status post creation of arteriovenous fistula Left upper arm Status post cataract extraction of both eyes with insertion of intraocular lens Family History Family History Father Lung cancer Daughter Chronic lung disease Morbid obesity Grandparent Asthma Mother Hypertension Other Diabetes mellitus Heart disease Malignant neoplasm of prostate Social History Social History Social History: The patient is and lives with his of 47 years. He is a lifelong nonsmoker. He did chew tobacco. Primary care physician: Dr. Srikanth Danielson Code status: Full code Surrogate decision maker: Smoking status: Never smoker Smokeless tobacco user: chewing tobacco Second hand tobacco smoke exposure: No Alcohol intake: former Alcohol use details: He reports that he drank heavily until 1975 when he found Jovani. Substance use: never Substance use type: does not use Do You Feel Safe in your Home?: Yes Lack of Transportation: No Lack of Food: Never True Current Housing: I Have Housing Concerned About Future Housing: No Difficulty Paying Gas/Electric Bills: No Difficulty Paying for Meds: No Currently Unemployed: No Education: Decline to Answer Difficulty w/ Childcare or Family Care: No Living arrangements: with family Additional living arrangements comments: He lives in [place] with his of 47 years. He has total of 6 children 5 of which are still living and her relatively healthy. He had 1 daughter who of morbid obesity and chronic lung disease. 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 Gender identity (if verbalized by the patient): Male Sexual Orientation (if Verbalized by the Patient): Straight or Heterosexual Spiritual care concerns: No Agree to blood products: Yes Meds Home Medications and Allergies Home Medications ?Medication ?Instructions ?Recorded ?Confirmed ?Type ferrous sulfate 325 mg (65 mg 325 mg PO BID 01/10/22 0 08/05/24 History iron) tablet (Iron (ferrous sulfate)) apixaban 5 mg tablet (Eliquis) 5 mg PO BID 01/11/22 History blood-glucose meter (OneTouch #1 ea 01/22/22 08/05/24 Rx Ultra2 Meter kit) clopidogrel 75 mg tablet 75 mg PO DAILY 12/10/2307/17 History loratadine 10 mg capsule 10 mg PO EVERY OTHER DAY 08/05/24 History rosuvastatin 10 mg tablet 10 mg PO DAILY 01/06/2407/17 History cholecalciferol (vitamin D3) 50 50 mcg PO BID #30 tabs 01/17/24 08/05/24 Rx mcg (2,000 unit) tablet hydralazine 25 mg tablet 50 mg (2 x 25 mg) PO TID 30 days 01/17/24 08/05/24 Rx #180 tabs coenzyme S88-plviivx E 100 mg-100 cap PO 01/21/2407/17 History unit capsule carvedilol 12.5 mg tablet See Rx Instructions .Route 0 08/29/24 Rx .COMPLEX #180 tabs blood sugar diagnostic (Accu-Chek #100 ea 10/03/24 Rx Guide test strips) blood-glucose meter (Accu-Chek #1 ea 10/03/24 Rx Guide Me Glucose Meter) furosemide 40 mg tablet See Rx Instructions .Route 0 12/23/24 Rx .COMPLEX #180 tabs lancets 30 gauge (OneTouch Delica #100 ea 12/26/24 Rx Plus Lancet) glipizide 5 mg tablet See Rx Instructions .Route 0 01/12/25 Rx .COMPLEX #180 tabs vitamin B complex and vitamin C See Rx Instructions .R oute 01/12/25 Rx no.20-folic acid 1 mg capsule .COMPLEX #90 caps (Triphrocaps) ciprofloxacin HCl 250 mg tablet 250 mg PO .complex 5 d ays #6 tabs 03/02/25 03/02/25 Rx Allergies Allergy/AdvReac Type Severity Reaction Status Date / Time Sulfa (Sulfonamide Allergy Unknown Rash,Unknow Verified 03/06/25 11:34 Antibiotics) n,Unknown,R isaiah sitagliptin (From [facility]) Allergy Rash Verified 03/06/25 11:34 Tea Allergy Nausea and Uncoded 03/02/25 08:47 Vomiting Vital Signs Vital Signs - 24 hr 03/06/25 10:14 03/06/25 11:27 03/06/25 11:31 Temperature 36.7 C 36.4 C Pulse Rate 72 97 87 Respiratory Rate 20 14 14 Blood Pressure 159/63 H 185/94 H 185/94 H Pulse Oximetry 100 99 100 Oxygen Delivery Room Air Room Air 03/06/25 11:55 03/06/25 13:07 03/06/25 13:31 Temperature Pulse Rate 92 86 90 Respiratory Rate 16 19 14 Blood Pressure 170/91 H 172/74 H 189/95 H Pulse Oximetry 100 99 99 Oxygen Delivery 03/06/25 13:38 03/06/25 14:30 Temperature Pulse Rate 93 78 Respiratory Rate 19 Blood Pressure 152/74 H Pulse Oximetry 94 Oxygen Delivery Exam 2 Const: General: comfortable and no acute distress Eyes: General: appearance normal, both eyes and all related structures Resp: Effort & Inspection: normal respiratory effort GI: Inspection: non-distended : Other: ~1 cm necrotic appearing wound on dorsal glans just superior to meatus Urinary Catheter: Urinary Catheter: patent and draining and urine clear Skin: General skin exam: normal color Psych: Speech and movement: Normal speech and movement present Affect: n ormal affect Results Labs 03/06/25 12:46 03/06/25 12:46 Labs: Short CBC 03/06/25 Range/Units 12:46 WBC 11.5 H (4.5-10.0) K/mm3 Hgb 10.0 L (14.0-18.0) g/dL Hct 32.9 L (42.0-52.0) % Plt Count 219 D (150-375) k/mm3 BMP 03/06/25 12:46 Sodium 137 Potassium 4.2 Chloride 94 L Carbon Dioxide 30 BUN 62 H Creatinine 6.62 H Glucose 131 H Calcium 10.6 H Cardiac Enzymes 03/06/25 Range/Units 12:46 Troponin I 0.049 H* (0.000-0.034) ng/mL Liver Function 03/06/25 Range/Units 12:46 Total Bilirubin 0.5 (0.2-1.3) mg/dL AST 33 (17-59) U/L ALT 16 (6-50) U/L Alkaline Phosphatase 100 (38-126) U/L Albumin 3.8 (3.5-5.1) g/dL Urine 03/06/25 Range/Units 12:46 Urine Color Yellow (Yellow) Urine Appearance Cloudy H (Clear) Urine pH 8.0 (5.0-9.0) Ur Specific Wolsey 1.008 (1.001-1.035) Urine Protein 2+ H (Negative) mg/dL Urine Glucose (UA) Negative (Negative) mg/dL
[2025-03-06 16:25] LABS: Troponin I 0.049 ng/mL (0.000-0.034)
[2025-03-06] MEDS: oxyCODONE HCL (*CRX) 5 MG TAB IR PO (17:50)
--- NOTE | 2025-03-06 18:45 | PC.NURSE ---
this RN voiced concerns about the pt going home. EDP and urology both agreed to send the pt home and not admit
== END 2025-03-06 18:28 | disposition home or self-care (01) ==
PROVIDERS: Emergency Medicine; Emergency Provider Student in an Organized Health Care Education/Training Program; PCP Family Medicine
DX: N48.22 Cellulitis of corpus cavernosum and penis (principal); N18.6 End stage renal disease; Z99.2 Dependence on renal dialysis; R94.31 Abnormal electrocardiogram [ECG] [EKG]; E11.40 Type 2 diabetes mellitus with diabetic neuropathy, unspecified; I27.20 Pulmonary hypertension, unspecified; I50.9 Heart failure, unspecified
CPT/HCPCS: 36415; 71046; 80053; 81001; 83605; 83735; 84100; 84484; 85025; 87070; 87075; 87086; 87186; 87637; 93005; 96365; 96367; 99284; A9270; J0696

== ENCOUNTER 2025-03-15 10:13 | Inpatient (IN) | payer MEDICARE, MEDICAID, SELFPAY ==
[2025-03-15 10:16] VITALS: BP 157/86; PULSE 84; RESP 16; TEMP 36.8; O2SAT 98
--- NOTE | 2025-03-15 11:23 | PC.NURSE ---
Patient missed his dialysis appointment today.
--- OUTSIDE RECORDS SUMMARY | 2025-03-15 11:25 | XMS_ITS | Encounter Summary ---
Author Organization [facility] Healthcare Address [address] [place] [address] Care Team Providers Care Extra Gang Supervisor Name Role Phone Srikanth Hernandez MD Primary Care Prov ider Estiven Dubois MD Unavailable [phone] Rebecca Zuluaga SENIOR TAX SPECIALIST Unavailable [phone] Mathew Plummer MD Unavailable + [phone] Srikanth Stephens MD Unavailable [phone] Tootie Kraft SENIOR TAX SPECIALIST Unavailable + [phone] Minoo Mcgowan MD PhD Unavailable [phone] Encounter Details Date Type Department Care Team (Late st Contact Info) Description 11/13/2023 Telephone [facility] Dialysis Access Center at [facility] [address] [facility] [address] [place] [address] Srikanth Stephens MD [address] [place] [address] [address] [facility] [address] [place] [address] Social History Tobacco Use Types Packs/Day Years [...] often do you attend chur ch or samaritan services? Never 02/07/2022 Do you belong to any clubs o r organizations such as rastafari groups, unions, fraternal or athletic groups, or [...] place to sleep or slept in a longterm (including now)? No 02/07/2022 Personal Safety Answer Date Recorded Have you ever been in or are you currently in a harmful physical or emotional relationship or is someone making you feel afraid or unsafe? 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 Gender Identity Not on file Sexual Orientation Not on file documented as of this encounter Plan of Treatment Not on file documented as of this encounter Visit Diagnoses Not on filedocumented in this encounter Care Teams Extra Gang Supervisor Relationship Specialty Start Date End Date Srikanth Hernandez MD PCP - General Family Medicine 10/16/19 Estiven Dubois MD [address] [id number] Consulting Physician Nephrology 10/23/21 Rebecca Zuluaga NP [address] [id number] Nurse Practitioner Cardiology 12/27/21 Mathew Plummer MD [facility] [address] Consulting Physician Interventional Cardiology 04/14/22 Srikanth Stephens MD [address] [facility] [address] [facility] [address] [place] [address] Surgeon Surgery 04/28/22 Tootie Kraft NP [facility] [id number] Nurse Practitioner Medical Oncology 05/22/22 Minoo Mcgowan MD PhD [address] [place] [address] Registered Nurse Vascular Surgery 01/06/24 documented as of this encounter
--- OUTSIDE RECORDS SUMMARY | 2025-03-15 11:25 | XMS_ITS | Encounter Summary ---
Author Organization [facility] Healthcare Address [address] [place] [address] Care Team Providers Care Corporate Administrative Assistant Name Role Phone Srikanth Hernandez MD Primary Care Prov ider Estiven Dubois MD Unavailable [phone] Rebecca Zuluaga BLEACHER PULP Unavailable [phone] Mathew Plummer MD Unavailable + [phone] Srikanth Stephens MD Unavailable [phone] Tootie Kraft BLEACHER PULP Unavailable + [phone] Minoo Mcgowan MD PhD Unavailable [phone] Encounter Details Date Type Department Care Team (Late st Contact Info) Description 09/16/2022 Telephone [facility] Medical Office Building [address] [place] [address] Srikanth Stephens MD [facility] [address] [facility] [address] [place] [address] Social History Tobacco Use Types Packs/Day Years [...] week 02/07/2022 How often do you attend [facility] or christianity services? Never 02/07/2022 Do you belong to any clubs o r organizations such as mandaen groups, unions, fraternal or athletic groups, or [...] place to sleep or slept in a usp (including now)? 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 Gender Identity Not on file Sexual Orientation Not on file documented as of this encounter Plan of Treatment Not on file documented as of this encounter Visit Diagnoses Not on filedocumented in this encounter Care Teams Corporate Administrative Assistant Relationship Specialty Start Date End Date Srikanth Hernandez MD PCP - General Family Medicine 10/16/19 Estiven Dubois MD [address] [address] Consulting Physician Nephrology 10/23/21 Rebecca Zuluaga NP [address] [address] Nurse Practitioner Cardiology 12/27/21 [place] [address] [place] [address] [address], [place] [address] Consulting Physician Interventional Cardiology 04/14/22 Srikanth Stephens MD [address] [facility] [address] [facility] [address] [place] [address] Surgeon Surgery 04/28/22 Tootie Kraft NP [address] [place] [address] [address] Nurse Practitioner Medical Oncology 05/22/22 Minoo Mcgowan MD PhD [address] [place] [address] Registered Nurse Vascular Surgery 01/06/24 documented as of this encounter
--- OUTSIDE RECORDS SUMMARY | 2025-03-15 11:25 | XMS_ITS | Encounter Summary ---
Author Organization [facility] Healthcare Address [address] [place] [address] Care Team Providers Care Dental Instrument Maker Name Role Phone Srikanth Hernandez MD Primary Care Prov ider Estiven Dubois MD Unavailable [phone] Rebecca Zuluaga SCHOOL LUNCH MONITOR Unavailable [phone] Mathew Plummer MD Unavailable + [phone] Srikanth Stephens MD Unavailable + [phone] Tootie Kraft SCHOOL LUNCH MONITOR Unavailable + [phone] Minoo Mcgowan MD PhD Unavailable [phone] Encounter Details Date Type Department Care Team (Late st Contact Info) Description 01/08/[address] [facility] Dialysis Access Center at [facility] [address] [facility] [address] [place] [address] Srikanth Stephens MD [address] [place] [address] [address] [facility] [address] [place] [address] Social History Tobacco Use Types Packs/Day Years [...] often do you attend chur ch or pentecostal services? Never 02/07/2022 Do you belong to [...] a long term (including now)? 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 Gender Identity Not on file Sexual Orientation Not on file documented as of this encounter Plan of Treatment Not on file documented as of this encounter Visit Diagnoses Not on filedocumented in this encounter Care Teams Dental Instrument Maker Relationship Specialty Start Date End Date Srikanth Hernandez MD PCP - General Family Medicine 10/16/19 Estiven Dubois MD [address] [address] Consulting Physician Nephrology 10/23/21 Rebecca Zuluaga NP [address] [address] Nurse Practitioner Cardiology 12/27/21 Mathew Plummer MD [facility]5 [facility] [address], [place] [address] Consulting Physician Interventional Cardiology 04/14/22 Srikanth Stephens MD [facility]0 [facility] [address] [facility] [address] [place] [address] Surgeon Surgery 04/28/22 Tootie Kraft NP [address] [place] [address] Nurse Practitioner Medical Oncology 05/22/22 Minoo Mcgowan MD PhD [address] [place] [address] Registered Nurse Vascular Surgery 01/06/24 documented as of this encounter
--- OUTSIDE RECORDS SUMMARY | 2025-03-15 11:25 | XMS_ITS | Encounter Summary ---
Author Organization [facility] Healthcare Address [address] [place] [address] Care Team Providers Care Maintenance Man Name Role Phone Srikanth Hernandez MD Primary Care Prov ider Estiven Dubois MD Unavailable [phone] Rebecca Zuluaga ELECTRIC BRAIN WAVE EQUIPMENT MECHANIC Unavailable [phone] Mathew Plummer MD Unavailable + [phone] Srikanth Stephens MD Unavailable + [phone] Tootie Kraft ELECTRIC BRAIN WAVE EQUIPMENT MECHANIC Unavailable + [phone] Minoo Mcgowan MD PhD Unavailable [phone] Encounter Details Date Type Department Care Team (Late st Contact Info) Description 04/01/2024 Telephone [facility] Dialysis Access Center at [facility] [address] [facility] [address] [place] [address] Naeem Stephens MD [address] [place] [address] [address] [place] [address] Social History Tobacco Use Types Packs/Day Years [...] often do you attend chur ch or mandaeism services? 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 Gender Identity Not on file Sexual Orientation Not on file documented as of this encounter Plan of Treatment Not on file documented as of this encounter Visit Diagnoses Not on filedocumented in this encounter Care Teams Maintenance Man Relationship Specialty Start Date End Date Srikanth Hernandez MD PCP - General Family Medicine 10/16/19 Estiven Dubois MD [address] [address] Consulting Physician Nephrology 10/23/21 Rebecca Zuluaga NP [address] [address] Nurse Practitioner Cardiology 12/27/21 Mathew Plummer MD [address] [facility] [address], [place] [address] Consulting Physician Interventional Cardiology 04/14/22 Srikanth Stephens MD [address] [facility] [address] [facility] [address] [place] [address] Surgeon Surgery 04/28/22 Tootie Kraft, ELANA [address] [place] [address] Nurse Practitioner Medical Oncology 05/22/22 Minoo Mcgowan MD PhD [address] [place] [address] Registered Nurse Vascular Surgery 01/06/24 documented as of this encounter
--- OUTSIDE RECORDS SUMMARY | 2025-03-15 11:25 | XMS_ITS | Clinical Summary ---
Author Organization [facility] Address [address] [place] [address] Care Team Providers Care Switchboard Wire Worker Helper Name Role Phone Unavailable Primary Care Provider [...]
--- OUTSIDE RECORDS SUMMARY | 2025-03-15 11:27 | XMS_ITS | Encounter Summary ---
Author Organization [facility] Healthcare Address [address] [place] [address] Care Team Providers Care Dean Of Boys Name Role Phone Srikanth Hernandez MD Primary Care Prov ider Bon Izquierdo MD Unavailable [phone] Estiven Dubois MD Unavailable [phone] Rebecca Zuluaga INTEGRATED LOGISTICS SUPPORT MANAGER Unavailable [phone] Mathew Plummer MD Unavailable + [phone] Srikanth Stephens MD Unavailable [phone] Tootie Kraft INTEGRATED LOGISTICS SUPPORT MANAGER Unavailable + [phone] Minoo Mcgowan MD PhD Unavailable [phone] Encounter Details Date Type Department Care Team (Late st Contact Info) Description 04/18/2022 Telephone [facility] Dialysis Access Center at [facility] [address] [facility] [address] [place] [address] Srikanth Stephens MD [address] [facility] [address] [place] [address] [place] [address] Social History Tobacco Use Types Packs/Day Years [...] any clubs o r organizations such as orthodox groups, unions, fraternal or athletic groups, or [...] on file 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 Gender Identity Not on file Sexual Orientation Not on file documented as of this encounter Functional Status documented as of this encounter Plan of Treatment Not on file documented as of this encounter Visit Diagnoses Not on filedocumented in this encounter Additional Health Concerns Infection Onset Date Last Indicated Resolved Time COVID: Suspected 04/30/2022 04/30/2022 04/30/2022 11:31 AM RETURNER documented as of this encounter Care Teams Dean Of Boys Relationship Specialty Start Date End Date Srikanth Hernandez MD PCP - General Family Medicine 10/16/19 Bon Izquierdo MD Consulting Physician Medical Oncology 10/21/21 05/21/22 Estiven Dubois MD [address] [address] Consulting Physician Nephrology 10/23/21 Rebecca Zuluaga NP [address] [address] Nurse Practitioner Cardiology 12/27/21 Mathew Plummer MD [facility]5 [facility] [address], [place] [address] Consulting Physician Interventional Cardiology 04/14/22 Srikanth Stephens MD [address] [facility] [address] [facility] [address] [place] [address] Surgeon Surgery 04/28/22 Tootie Kraft, ELANA [address] [place] [address] Nurse Practitioner Medical Oncology 05/22/22 Minoo Mcgowan MD PhD [address] [place] [address] Registered Nurse Vascular Surgery 01/06/24 documented as of this encounter
--- OUTSIDE RECORDS SUMMARY | 2025-03-15 11:28 | XMS_ITS ---
Author Organization [facility] [address] Address [address] [place] [address] Care Team Providers Care Granular Operator Name Role Phone Srikanth Hernandez MD Primary Care Prov ider Estiven Dubois MD Unavailable [phone] Rebecca Zuluaga NP Unavailable Mathew Plummer MD Unavailable + [phone] Srikanth Stephens MD Unavailable [phone] Tootie Kraft NP Unavailable [phone] Minoo Mcgowan MD PhD Unavailable Dialysis Access Sites Type Status Location Placement Date Removal Da te AV graft Active Left Upper Arm - Anterior 04/28/2022 Procedures Procedure Name Priority Date/Time Associated Diagnosis Comments INTRO CATH DIALYSIS CIRCUIT DX ANGRPH FLUOR 28407 Routine 12/15/2024 10:01 AM CDT ESRD (end [...] HEPATITIS PANEL, ACUTE STAT 07/08/2023 7:12 AM STOCK PATCH SAWYER from Last 3 Months or Most Recently [...] of L carotid artery. [facility] for further evaluation and treatment. [...] reports a follow up appointment with his salesperson women's dresses on Thursday. Recommend patient to take blood pressure medication at home and monitor blood pressures at home. Also advised patient to notify primary care provider/salesperson women's dresses of elevated blood pressure for further management. [...] dialysis. Assessment & Plan (03/31/2024 4:40 PM STOCK PATCH SAWYER): Patient with increased velocity associated with left axillary stent, fortunately asymptomatic. Will plan for left upper extremity AV fistulogram with possible intervention. Risks of the procedure including but not limited to bleeding, infection, nerve injury, stroke, , myocardial infarction communicated patient full understanding. Wished to proceed Assessment & Plan (12/29/2023 10:36 AM CDT): - CAITLINE AV fistula, dialyzes MWF at [facility] - Renal consult for inpatient HD Assessment [...] procedure. Assessment & Plan (04/14/2022 10:44 AM STOCK PATCH SAWYER): Patient seen today for new access evaluation. Rubber Stamp Maker is Dr. Dubois. Previous vein mapping obtained [...] glipizide Assessment & Plan (04/14/2022 10:41 AM STOCK PATCH SAWYER): History of diabetes that is being controlled [...] often do you attend chur ch or adventism services? Never 02/07/2022 Do you belong to any clubs o r organizations such as mormon groups, unions, fraternal or athletic groups, or [...] on file Legal Sex Male 6:58 PM STOCK PATCH SAWYER Gender Identity Not on file Sexual Orientation [...] INTRO CATH DIALYSIS CIRCUIT DX ANGRPH FLUOR 24354 (12/15/2024 10:01 AM CDT) Anatomical Region Laterality Modality X-Ray Angiograph y Narrative 12/15/2024 10:02 AM CDT Please see OpNote for result. us Naeem Stephens MD CV CARDIAC CATH PROCEDURES Final Result * (ABNORMAL) eGFR (12/15/2024 7:56 AM CDT) [facility] eGFR 15(L) >=60 mL/min/1. 73 m2 Comment: [...] MD LAB BLOOD ORDERABLES Final Resul t [facility] [address] [facility] Department of Laboratories [place], [place] [id number] * (ABNORMAL) Differential, auto (12/15/2024 7:56 AM CDT) [facility] Neutrophil abs 4.36 1.50 - 6.50 K/cumm Imm gran abs 0.02 0.00 - 0.10 K/cumm [facility] Lymphocyte abs 1.18 0.80 - 3.30 K/cumm [facility] Monocyte abs 0.60 0.20 - 0.80 K/cumm [facility] Eosinophil abs 0.55(H) 0.00 - 0.50 K/cumm [facility] Basophil abs 0.04 0.00 - 0.10 K/cumm [facility] Neutrophil pct 64.6 % [facility] Comment: Interpretive Data Percent cell count reference [...] MD LAB BLOOD ORDERABLES Final Resul t [facility] [address] [facility] Department [place] [address] * (ABNORMAL) CBC with auto differential (12/15/2024 7:56 AM CDT) WBC 6.75 3.80 - 9.90 K/cumm Hgb 10.0(L) 13.0 - 17.5 g/dL [facility] Hct 31.1(L) 38.9 - 50.3 % [facility] Plt 103(L) 150 - 400 K/cumm [facility] MPV 9.0(L) 9.1 - 12.3 fL [facility] RBC 3.39(L) 4.30 - 5.80 M/cumm [facility] MCV 91.7 81.3 - 96.4 fL [facility] MCH 29.5 27.1 - 33.3 pg [facility] MCHC 32.2(L) 32.3 - 35.7 g/dL [facility] RDW CV 15.8(H) 11.1 - 14.9 % [facility] RDW SD 52.7(H) 35.7 - 48.1 fL [facility] NRBC abs 0.00 0.00 - 0.01 K/cumm [facility] Blood 12/15/2024 7:56 AM CDT 12/15/2024 8:00 AM CDT Naeem Stephens MD LAB BLOOD ORDERABLES Final Resul t Performing Organization Address [facility] de Phone Number [address] [place] [address] * (ABNORMAL) Protime-INR (12/15/2024 7:56 AM CDT) PT 14.70(H) 12.00 - 14.60 sec Comment:Ref Range High INR 1.14 0.90 - 1.20 [facility] Comment: Ref Range High Interpretive data Oral [...] ORDERABLES Final Resul t Performing Organization Address [facility] de Phone Number [address] [place] [address] * (ABNORMAL) Basic metabolic panel (12/15/2024 7:56 AM CDT) Pathologist [facility] Sodium 141 135 - 145 mmol/L Potassium, pl 3.9 3.3 - 4.9 mmol/L [facility] Chloride 98 97 - 110 mmol/L [facility] CO2 28 22 - 32 mmol/L [facility] Anion gap 15 2 - 15 mmol/L [facility] BUN 47(H) 6 - 25 mg/dL [facility] Creatinine 3.92(H) 0.80 - 1.30 mg/dL [facility] Glucose 104 70 - 199 mg/dL [facility] Comment: Interpretive Data Fasting glucose >/= 126 [...] 2022. Calcium 10.1 8.5 - 10.3 mg/dL [facility] Blood 12/15/2024 7:56 AM CDT 12/15/2024 8:00 AM CDT us Naeem Stephens MD LAB BLOOD ORDERABLES Final Resul t [facility] [address] [facility] Department [place] [address] * (ABNORMAL) POCT lipid panel (09/29/2024 12:17 PM CDT) Pathologist [facility] Cholesterol, POC 100 <200 MG/DL HDL, POC [...] 5.6 % Estimated Average Glucose 143 mg/dL [facility] Comment: The ADA recommends reporting [...] PhD LAB BLOOD ORDERABLES F inal Result [facility] [address] [facility] Department [place] [address] * Hepatitis panel, acute Blood (07/08/2023 7:12 AM STOCK PATCH SAWYER) Pathologist [facility] Hep A IgM Nonreactive Nonreactive [facility] Comment: Interpretive Data: If Hep A IgM Ab is reported as Equivocal, a new sample should be drawn in two weeks for testing. Current interpretive data was last revised on 19. Hep B core IgM Nonreactive Nonreactive [facility] Comment: Interpretive Data If HepB Core IgM Ab is reported as Equivocal, a new sample should be drawn in two weeks for testing. Current interpretive data was last revised on 19. Hep C Ab Nonreactive Nonreactive [facility] Comment: Interpretive Data Nonreactive: Antibodies [...] Nonreactive [facility] Blood 07/08/2023 7:12 AM STOCK PATCH SAWYER 07/08/2023 7:23 AM STOCK PATCH SAWYER us Sameed Yecenia Ellsworth MD LAB MICROBIOLOGY - GENERA L ORDERABLES Final Result [facility] [address] [place] [address] from Last 3 Months or Most Recently Relevant to Health Maintenance
--- OUTSIDE RECORDS SUMMARY | 2025-03-15 11:28 | XMS_ITS | Clinical Summary ---
Author Organization [facility] [address] Address [address] [place] [address] Care Team Providers Care Clothing Consultant Name Role Phone Srikanth Hernandez MD Primary Care Prov ider Estiven Dubois MD Unavailable [phone] Rebecca Zuluaga NP Unavailable Mathew Plummer MD Unavailable [phone] Srikanth Stephens MD Unavailable [phone] Tootie Kraft EDITORIAL ASSISTANT Unavailable [phone] Minoo Mcgowan MD PhD Unavailable Allergies Active [...] of L carotid artery. Patient transferred to [facility] for further evaluation and treatment. - [...] reports a follow up appointment with his surgical nurse on Thursday. Recommend patient to take blood pressure medication at home and monitor blood pressures at home. Also advised patient to notify primary care provider/surgical nurse of elevated blood pressure for further management. [...] dialysis. Assessment & Plan (03/31/2024 4:40 PM USER EXPERIENCE LEAD): Patient with increased velocity associated with left axillary stent, fortunately asymptomatic. Will plan for left upper extremity AV fistulogram with possible intervention. Risks of the procedure including but not limited to bleeding, infection, nerve injury, stroke, , myocardial infarction communicated patient full understanding. Wished to proceed Assessment & Plan (12/29/2023 10:36 AM CDT): - LUE AV fistula, dialyzes MWF at [facility] - Renal consult for inpatient HD [...] procedure. Assessment & Plan (04/14/2022 10:44 AM USER EXPERIENCE LEAD): Patient seen today for new access evaluation. Dice Manager is Dr. Dubois. Previous vein mapping obtained [...] glipizide Assessment & Plan (04/14/2022 10:41 AM USER EXPERIENCE LEAD): History of diabetes that is being controlled [...] CDT - 12/15/2024 10:30 AM CDT Surgery [facility] Cardiac Supervisor Yard [address] [place] [address] Naeem Stephens MD Dialysis Circuit Angiogram 12/15/2024 7:28 AM CDT - 12/15/2024 11:49 AM CDT Hospital Encounter [facility] Cardiac Supervisor Yard [facility] [place] [address] Naeem Stephens MD ESRD (end stage renal disease) on dialysis ([facility]) Discharge Disposition: Discharge to home or self [...] Circuit Angiogram; Surgeon: Naeem Stephens MD; Location: [facility] 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 Never 02/07/2022 Do you belong to any clubs o r organizations such as mandaeism groups, unions, fraternal or athletic groups, or [...] on file Legal Sex Male 6:58 PM USER EXPERIENCE LEAD Gender Identity Not on file Sexual Orientation [...] history exists Medical Devices Implanted Type Area Senior Game Developer Device Identifier Shelf Expiration Date Model / Serial / Lot [employer] Device Vascular Closure Femoral Artery Bioabsorbable Dual Method Vascade 6-7fr Collagen [id number] - [id number] Implanted:Qty: 1 on 07/07/2023 by Mathew Plummer MD at [facility] Collagen Left: Common Femoral Artery [employer] 02/25/2025 [id number] / / [id number] [employer] Fairhope Acuseal 4-7mm 45cm Taper Graft Vascular Sterile [id number] - [id number] - [id number] Implanted:Qty: 1 on 04/28/2022 by Srikanth Stephens MD at [facility] Graft Left: Arm Wl [employer] [id number] 05/19/2024 [id number] / [id number] / Medtronic Card Vasc Surgery 3.0 X 22mm Simon Kittson Rx Coronary Stent [id number] - [id number] Implanted:Qty: 1 on 07/07/2023 by Mathew Plummer MD at [facility] Stent Left: Circumflex Coronary Artery Medtronic Card Vasc Surgery 06/07/2025 [id number] / / [id number] Bard Peripheral Vascular Stent Graft Endovascular Arteriovenous [id number] Covera [id number] - [id number] Implanted:Qty: 1 on 01/15/2023 by Srikanth Stephens MD at [facility] Left: Arm Bard Peripheral Vascular 06/06/2024 [id number] / / [id number] Procedures Procedure Name Priority Date/Time Associated Diagnosis Comments INTRO CATH DIALYSIS CIRCUIT DX ANGRPH FLUOR 21471 Routine 12/15/2024 10:01 AM CDT ESRD (end [...] HEPATITIS PANEL, ACUTE STAT 07/08/2023 7:12 AM USER EXPERIENCE LEAD from Last 3 Months or Most Recently Relevant to Health Maintenance Results * INTRO CATH DIALYSIS CIRCUIT DX ANGRPH FLUOR 49764 (12/15/2024 10:01 AM CDT) Anatomical Region Laterality [...] LAB BLOOD ORDERABLES Final Resul t MICHAELLE [address] [facility] Department [place] [address] * (ABNORMAL) Differential, auto (12/15/2024 7:56 AM CDT) Pathologist [facility] Neutrophil abs 4.36 1.50 - 6.50 K/cumm Imm gran abs 0.02 0.00 - 0.10 K/cumm [facility] Lymphocyte abs 1.18 0.80 - 3.30 K/cumm [facility] Monocyte abs 0.60 0.20 - 0.80 K/cumm [facility] Eosinophil abs 0.55(H) 0.00 - 0.50 K/cumm [facility] Basophil abs 0.04 0.00 - 0.10 K/cumm [facility] Neutrophil pct 64.6 % [facility] Comment: Interpretive Data Percent cell count reference ranges are not reported, since discordance with absolute values may lead to misinterpretation of CBC data. Current Interpretive Data was last revised on 2017. Imm gran pct 0.3 % [facility] Comment: Interpretive Data Percent cell count reference ranges are not reported, since discordance with absolute values may lead to misinterpretation of CBC data. Current Interpretive Data was last revised on 2017. Lymphocyte pct 17.5 % [facility] Comment: Interpretive Data Percent cell count reference ranges are not reported, since discordance with absolute values may lead to misinterpretation of CBC data. Current Interpretive Data was last revised on 2017. Monocyte pct 8.9 % [facility] Comment: Interpretive Data Percent cell count reference ranges are not reported, since discordance with absolute values may lead to misinterpretation of CBC data. Current Interpretive Data was last revised on 2017. Eosinophil pct 8.1 % [facility] Comment: Interpretive Data Percent cell count reference ranges are not reported, since discordance with absolute values may lead to misinterpretation of CBC data. Current Interpretive Data was last revised on 2017. Basophil pct 0.6 % [facility] Comment: Interpretive Data Percent cell count reference ranges are not reported, since discordance with absolute values may lead to misinterpretation of CBC data. Current Interpretive Data was last revised on 2017. Blood 12/15/2024 7:56 AM CDT 12/15/2024 8:00 AM CDT Naeem Stephens MD LAB BLOOD ORDERABLES Final Resul t Performing Organization Address City/[facility] Co de Phone Number [address] [place] [address] * (ABNORMAL) CBC with auto differential (12/15/2024 7:56 AM CDT) WBC 6.75 3.80 - 9.90 K/cumm Hgb 10.0(L) 13.0 - 17.5 g/dL [facility] Hct 31.1(L) 38.9 - 50.3 % [facility] Plt 103(L) 150 - 400 K/cumm [facility] MPV 9.0(L) 9.1 - 12.3 fL [facility] RBC 3.39(L) 4.30 - 5.80 M/cumm [facility] MCV 91.7 81.3 - 96.4 fL [facility] MCH 29.5 27.1 - 33.3 pg [facility] MCHC 32.2(L) 32.3 - 35.7 g/dL [facility] RDW CV 15.8(H) 11.1 - 14.9 % [facility] RDW SD 52.7(H) 35.7 - 48.1 fL [facility] NRBC abs 0.00 0.00 - 0.01 K/cumm [facility] Blood 12/15/2024 7:56 AM CDT 12/15/2024 8:00 AM CDT Naeem Stephens MD LAB BLOOD ORDERABLES Final Resul t Performing Organization Address City/[facility]/ZIP Co de Phone Number [address] [place] [address] * (ABNORMAL) Protime-INR (12/15/2024 7:56 AM CDT) PT 14.70(H) 12.00 - 14.60 sec Comment:Ref Range High INR 1.14 0.90 - 1.20 [facility] Comment: Ref Range High Interpretive data [...] MD LAB BLOOD ORDERABLES Final Resul t [facility] [address] [facility] Department [place] [address] * (ABNORMAL) Basic metabolic panel (12/15/2024 7:56 AM CDT) Sodium 141 135 - 145 mmol/L Potassium, pl 3.9 3.3 - 4.9 mmol/L [facility] Chloride 98 97 - 110 mmol/L [facility] CO2 28 22 - 32 mmol/L [facility] Anion gap 15 2 - 15 mmol/L [facility] BUN 47(H) 6 - 25 mg/dL [facility] Creatinine 3.92(H) 0.80 - 1.30 mg/dL [facility] Glucose 104 70 - 199 mg/dL [facility] Comment: Interpretive Data Fasting glucose >/= [...] ORDERABLES Final Resul t Performing Organization Address City/State/[facility] Co ut Phone Number MICHAELLE [address] [facility] Department [place] [address] * (ABNORMAL) POCT lipid panel (09/29/2024 12:17 [...] % Estimated Average Glucose 143 mg/dL MICHAELLE [facility] Comment: The ADA recommends reporting an [...] ORDERABLES F inal Result Performing Organization Address City/State/[facility] Co de Phone Number MICHAELLE H [facility] [place] [address] * Hepatitis panel, acute Blood (07/08/2023 7:12 AM USER EXPERIENCE LEAD) Hep A IgM Nonreactive Nonreactive [facility] Comment: Interpretive Data: If Hep A IgM Ab is reported as Equivocal, a new sample should be drawn in two weeks for testing. Current interpretive data was last revised on 19. Hep B core IgM Nonreactive Nonreactive [facility] Comment: Interpretive Data If HepB Core IgM Ab is reported as Equivocal, a new sample should be drawn in two weeks for testing. Current interpretive data was last revised on 19. Hep C Ab Nonreactive Nonreactive [facility] Comment: Interpretive Data Nonreactive: Antibodies to [...] last revised on 2019. HepBsAg Nonreactive Nonreactive [facility] Blood 07/08/2023 7:12 AM USER EXPERIENCE LEAD 07/08/2023 7:23 AM USER EXPERIENCE LEAD us Sameed Yecenia Ellsworth MD LAB MICROBIOLOGY - GENERA L ORDERABLES Final Result Performing Organization Address City/[facility] Co de Phone Number [facility] [address] [place] [address] from Last 3 Months or Most Recently Relevant to Health Maintenance Insurance IDPA [facility] MEDICARE ADVANTAGE [facility] [employer] CHOICE MEDICARE PPO [employer]PA [employer] MEDICARE PPO [employer]PA [facility] MEDICARE ADVANTAGE Advance Directives For more information, please contact: [phone] * Full Code (Latest Code Status on [...] 3:25 PM 02/10/2022 6:01 PM Care Teams Clothing Consultant Relationship Specialty Start Date End Date Srikanth Hernandez MD PCP - General Family Medicine 10/16/19 Estiven Dubois MD [address] [address] Consulting Physician Nephrology 10/23/21 Rebecca Zuluaga NP [address] [address] Nurse Practitioner Cardiology 12/27/21 Mathew Plummer MD [address] [place], [place] [address], [place] [address] Consulting Physician Interventional Cardiology 04/14/22 Srikanth Stephens MD [address] [facility] [address] [facility] [address] [place] [address] Surgeon Surgery 04/28/22 Tootie Kraft, ELANA [address] [place] [address] Nurse Practitioner Medical Oncology 05/22/22 Minoo Mcgowan MD PhD [id number] [place] [address] Registered Nurse Vascular Surgery 01/06/24
--- NOTE | 2025-03-15 13:53 | ED.GENADULT ---
HPI - General Adult General Chief complaint: Unspecified Stated complaint: no complaints Time Seen by Provider: 03/15/25 13:18 History of Present Illness HPI narrative: 79-year-old male presents emergency department for evaluation. Patients was sent to the emergency department for evaluation and was ultimately admitted for pneumonia. Patient does have history urinary tract infection and has been on both Cipro and Keflex. Patient was distally started on Cipro and then patient was started on Keflex and response to the urine cultures. States he did have some increased generalized weakness but feels that has been improving. There was concern that the patient may not be able to care for himself at home but patient states he is able to care for himself and patient is very aware of his past medical history and was able to get himself dressed today. Patient is unsure of why he was sent to the emergency department. Patient does have assistance that help in the home but when they found out that his urine was positive for MRSA they became concerned about elizabeth MRSA and refused to help him anymore. Patient does do dialysis on Thursday and Thursday because he was sent to the emergency department he has now missed his dialysis appointment. Patient denies any complaints at this time. Patient was unable to stand at bedside on his own and admits that he does not ambulate. Related Data Home Medications ?Medication ?Instructions ?Recorded ?Confirmed ?Last Taken ?Type ferrous sulfate 325 mg (65 mg 325 mg PO BID 01/10/22 03/15/25 03/15/25 08:00 History iron) tablet (Iron (ferrous 325 mg sulfate)) apixaban 5 mg tablet (Eliquis) 5 mg PO BID 01/11/22 03/15/25 03/15/25 08:00 History 5 mg clopidogrel 75 mg tablet 75 mg PO DAILY 12/10/23 03/15/25 03/15/25 08:00 History 75 mg loratadine 10 mg capsule 10 mg PO EVERY OTHER DAY 01/06/24 03/15/25 03/15/25 08:00 History 10 mg rosuvastatin 10 mg tablet 10 mg PO DAILY 01/06/24 03/15/25 03/15/25 08:00 History 10 mg coenzyme R66-kblpnip E 100 mg-100 1 cap PO DAILY 01/21/24 03/15/25 03/15/25 08:00 History unit capsule 1 cap hydralazine 25 mg tablet 50 mg PO BID 03/15/25 03/15/25 03/15/25 08:00 History 50 mg Allergies Allergy/AdvReac Type Severity Reaction Status Date / Time Sulfa (Sulfonamide Allergy Unknown Rash,Unknow Verified 03/15/25 18:46 Antibiotics) n,Unknown,R isaiah sitagliptin (From Januvia) Allergy Rash Verified 03/15/25 18:46 Tea Allergy Nausea and Uncoded 03/02/25 08:47 Vomiting Review of Systems Review of Systems: All systems reviewed & are unremarkable except as noted in HPI and below [facility] Past Medical History Medical History Acute CVA (cerebrovascular accident) (12/2023) Diabetic neuropathy Diabetic retinopathy Pulmonary hypertension Combined systolic and diastolic congestive heart failure Echocardiogram 10/2021: Mild concentric left ventricular hypertrophy, moderate left ventricular enlargement, moderate global left ventricular systolic dysfunction with EF of 30%, diastolic dysfunction, severe left atrial enlargement, mild right atrial enlargement, mild aortic valve regurgitation, moderate pulmonary hypertension with RVSP of 53, moderate tricuspid regurgitation End-stage renal disease Hemodialysis started June 2022; managed by Dr. 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 Abnormal thumb on the left hand Anemia of chronic disease Pneumonia due to COVID-19 virus Allergic rhinitis Chronic sinusitis Eczema Ulcer Hyperlipidemia COVID-19 10/04 and 08/01/2022 Surgical History Surgical History Status post creation of arteriovenous fistula Left upper arm Status post cataract extraction of both eyes with insertion of intraocular lens Family History Family History Father Lung cancer Daughter Chronic lung disease Morbid obesity Grandparent Asthma Mother Hypertension Other Diabetes mellitus Heart disease Malignant neoplasm of prostate Social History Social History Social History: The patient is and lives with his of 47 years. He is a lifelong nonsmoker. He did chew tobacco. Primary care physician: Dr. Srikanth Danielson Code status: Full code Surrogate decision maker: Smoking status: Never smoker Smokeless tobacco user: chewing tobacco Second hand tobacco smoke exposure: No Alcohol intake: former Alcohol use details: He reports that he drank heavily until 1975 when he found Jovani. Substance use: never Substance use type: does not use Do You Feel Safe in your Home?: Yes Lack of Transportation: No Lack of Food: Never True Current Housing: I Have Housing Concerned About Future Housing: No Difficulty Paying Gas/Electric Bills: No Difficulty Paying for Meds: No Currently Unemployed: No Education: Decline to Answer Difficulty w/ Childcare or Family Care: No Living arrangements: with family Additional living arrangements comments: He lives in [place] with his of 47 years. He has total of 6 children 5 of which are still living and her relatively healthy. He had 1 daughter who of morbid obesity and chronic lung disease. 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 Gender identity (if verbalized by the patient): Male Sexual Orientation (if Verbalized by the Patient): Straight or Heterosexual Spiritual care concerns: No Agree to blood products: Yes Exam Narrative: APPEARANCE: Well appearing, no pain, no distress, well-nourished. HEAD: normocephalic, atraumatic. EYES: PERRLA/EOMI, conjunctivae clear. NOSE: Normal no drainage EARS:TMS clear with good light reflex. THROAT: Pharynx clear, no exudate. NECK: Supple. No adenopathy, no masses. RESPIRATORY: Airway patent, respirations nonlabored. Clear to auscultation bilaterally, no rales, rhonchi, wheezing. CARDIOVASCULAR: Regular rate and rhythm without murmurs rubs or gallops. ABDOMINAL: Soft, nontender, nondistended, normal bowel sounds MUSCULOSKELETAL: Moves all extremities. Strength/ROM intact, No edema, No calf tenderness. NEURO: Alert. Cranial nerves II through XII intact. Good gait. Good coordination SKIN: Warm, dry. Normal Color Course Vital Signs Vital signs: Vital Signs Temperature 98.2 F 03/15/25 10:16 Pulse Rate 84 03/15/25 10:16 Respiratory Rate 16 03/15/25 10:16 Blood Pressure 157/86 H 03/15/25 10:16 Pulse Oximetry 98 03/15/25 10:16 Temperature 98.2 F 03/15/25 10:16 Pulse Rate 76 03/15/25 16:26 Respiratory Rate 17 03/15/25 16:25 Blood Pressure 192/89 H 03/15/25 16:25 Pulse Oximetry 100 03/15/25 16:25 Medical Decision Making MDM Narrative Medical decision making narrative: 79-year-old male present to the emergency department for concern for his ability to care for self at home alone. Patient's was admitted to the hospitalist with pneumonia. Patient is unable to ambulate it baseline and patient was unable to stand and pivot at bedside. Patient does have an indwelling Sheriff catheter and urine culture was ordered. Patient did complete both his antibiotic that was prescribed on the and the antibiotic was prescribed on the . Care coordination is involved with the patient's care. Patient will be admitted for potential placement. Differential Diagnosis Differential Diagnosis: COVID, RSV, influenza, UTI Vital Signs Vital Signs: Vital Signs Temperature 98.2 F 03/15/25 10:16 Pulse Rate 84 03/15/25 10:16 Respiratory Rate 16 03/15/25 10:16 Blood Pressure 157/86 H 03/15/25 10:16 Pulse Oximetry 98 03/15/25 10:16 Temperature 98.2 F 03/15/25 10:16 Pulse Rate 76 03/15/25 16:26 Respiratory Rate 17 03/15/25 16:25 Blood Pressure 192/89 H 03/15/25 16:25 Pulse Oximetry 100 03/15/25 16:25 Lab Data Lab results reviewed: Yes I reviewed the patient's lab results. 03/15/25 14:30 03/15/25 14:30 Labs: Lab Results 03/15/25 03/15/25 03/15/25 Range/Units 14:16 14:30 14:46 WBC 10.4 H (4.5-10.0) K/mm3 RBC 3.11 L (4.6-6.20) M/mm3 Hgb 8.5 L (14.0-18.0) g/dL Hct 27.5 L (42.0-52.0) % MCV 88.4 (80-100) fl MCH 27.3 (26-34) pg MCHC 30.9 L (32-36) g/dl RDW 16.1 H (11.5-14.5) % Plt Count 231 (150-375) k/mm3 MPV 8.8 (7.4-10.4) fl Immature Gran % (Auto) 0.6 H (0-0.5) % Neut % (Auto) 79.9 H (45.5-73.1) % Lymph % (Auto) 7.7 L (18.3-44.2) % Hickman % (Auto) 8.1 (2.6-8.5) % Eos % (Auto) 3.4 (0-4.4) % Baso % (Auto) 0.3 (0.2-1.2) % Lymph # (Auto) 0.80 L (0.9-3.2) K/mm3 Hickman # (Auto) 0.8 H (0.1-0.6) K/mm3 Eos # (Auto) 0.4 H (0-0.3) K/mm3 Baso # (Auto) 0.0 (0.0-0.1) K/mm3 Abs Immat Gran (auto) 0.06 H (0.00-0.031) K/mm3 Absolute Neuts (auto) 8.3 H (1.3-6.7) K/mm3 Absolute Nucleated RBC 0.000 (0.0-0.012) K/mm3 Nucleated RBC % 0.0 (0.0-0.2) % Sodium 135 L (137-145) mmol/L Potassium 4.2 (3.4-5.0) mmol/L Chloride 97 L (98-107) mmol/L Carbon Dioxide 30 (22-30) mmol/L Anion Gap 8 (4-12) mmol/L BUN 54 H (9-20) mg/dL Creatinine 5.67 H (0.7-1.3) mg/dL Estim Creat Clear Calc 10 ml/min Estimated GFR 10 L (59 - ) Glucose 277 H (65-110) mg/dL Calcium 10.1 (8.4-10.2) mg/dL Total Bilirubin 0.2 (0.2-1.3) mg/dL AST 21 (17-59) U/L ALT 14 (6-50) U/L Alkaline Phosphatase 94 (38-126) U/L Total Protein 6.9 (6.3-8.2) g/dL Albumin 3.4 L (3.5-5.1) g/dL Urine Color Yellow (Yellow) Urine Appearance Clear (Clear) Urine pH 7.0 (5.0-9.0) Ur Specific [place] 1.015 (1.001-1.035) Urine Protein 3+ H (Negative) mg/dL Urine Glucose (UA) Trace H (Negative) mg/dL Urine Ketones Negative (Negative) mg/dL Ur Blood (Man) 1+ H (Negative) Urine Nitrate Negative (Negative) Urine Bilirubin Negative (Negative) Urine Urobilinogen 0.2 (<2.0) mg/dL Leukocyte Esterase Rfl 1+ H (Negative) JASMINA/UL Urine RBC 21-50 H (0-2) /hpf Urine WBC 6-10 H (0-3) /hpf Ur Squamous Epith Cells None seen (Few) /hpf Urine Bacteria None seen /hpf Urine Casts 3-5 Urine Yeast (Budding) Present H (None) /hpf Influenza A (RT-PCR) Negative (Negative) Influenza B (RT-PCR) Negative (Negative) RSV (RT-PCR) Negative (Negative) SARS-CoV-2 RNA (RT-PCR) Negative (Negative) Discharge Plan Discharge Clinical Impression: Adult failure to thrive Patient Disposition: Still a Patient Condition: Stable
[2025-03-15 14:39] LABS: Hematocrit 27.5 % (42.0-52.0); Hemoglobin 8.5 g/dL (14.0-18.0); Immature Granulocyte Percent A 0.6 % (0-0.5); Lymphocytes Absolute Auto 0.80 K/mm3 (0.9-3.2); Mean Corpuscular HGB Conc 30.9 g/dl (32-36); Mean Corpuscular Hemoglobin 27.3 pg (26-34); Mean Corpuscular Volume 88.4 fl (80-100); Nucleated Red Blood Cells Absolute Auto 0.000 K/mm3 (0.0-0.012); Nucleated Red Blood Cells Perc 0.0 % (0.0-0.2); Platelet Count Result 231 k/mm3 (150-375); Red Blood Count 3.11 M/mm3 (4.6-6.20); White Blood Count 10.4 K/mm3 (4.5-10.0)
[2025-03-15 14:52] LABS: Alanine Aminotransferase 14 U/L (6-50); Albumin Level 3.4 g/dL (3.5-5.1); Alkaline Phosphatase 94 U/L (38-126); Anion Gap 8 mmol/L (4-12); Aspartate Amino Transferase 21 U/L (17-59); Bilirubin,Total 0.2 mg/dL (0.2-1.3); Blood Urea Nitrogen 54 mg/dL (9-20); Calcium 10.1 mg/dL (8.4-10.2); Carbon Dioxide 30 mmol/L (22-30); Chloride 97 mmol/L (98-107); Estimated CRCL calculation 10 ml/min; Estimated Glomerular Filt Rate 10; Glucose 277 mg/dL (65-110); Potassium 4.2 mmol/L (3.4-5.0); Sodium 135 mmol/L (137-145); Total Protein 6.9 g/dL (6.3-8.2)
[2025-03-15 15:09] LABS: Add Urine Microscopic? YES; Appearance Urine Clear (Clear); Budding Yeast Urine Present /hpf; Glucose Urine UA Trace mg/dL (Negative); Leukocyte Esterase Ur 1+ LEU/UL (Negative); Nitrate Urine Negative (Negative); Specific Grav Ur 1.015 (1.001-1.035)
--- OUTSIDE RECORDS SUMMARY | 2025-03-15 15:24 | XMS_ITS | Encounter Summary ---
Author Organization [facility] Address [address] [place] [address] Phone Care Team Providers Care Hearing Impaired Teacher Name Role Phone Srikanth Danielson MD Primary Care Provider [phone] Reason for Visit * Reason Comments Med Refill Encounter Details Date Type Department Care Team ([facility] st Contact Info) Description 02/11/2022 Refill [facility] [address] [facility] 1 [place] [address] Estiven Dubois MD [facility] [facility] [place] [address] Social History Tobacco Use Types Packs/Day Years Used Date Smoking Tobacco: Never Smokeless Tobacco: Never Alcohol Use Standard Drinks/Week Comments No 0 (1 standard drink = 0.6 oz pur e alcohol) Sex and Gender Information Value Date Recorded Sex Assigned at Not on file Legal Sex Male 8:[address] [facility] Gender Identity Not on file Sexual Orientation Not on file documented as of this encounter Plan of Treatment Not on file documented as of this encounter Visit Diagnoses Not on filedocumented in this encounter Care Teams Hearing Impaired Teacher Relationship Specialty Start Date End Date Srikanth Danielson MD 531 [facility] 100 [place] [address] PCP - General Family Medicine 11/03/18 documented as of this encounter
--- OUTSIDE RECORDS SUMMARY | 2025-03-15 15:24 | XMS_ITS | Encounter Summary ---
Author Organization [facility] Address [address] [place] [phone] Phone Care Team Providers Care Sat Instructor Name Role Phone Srikanth Danielson MD Primary Care Provider [phone] Reason for Visit * Reason Comments Med Refill Encounter Details Date Type Department Care Team ([facility] st Contact Info) Description 11/14/2021 Refill [facility] 5[address] [facility] 1 [place] [address] Estiven Dubois MD 5003 [facility] 1 [place] [address] Social History Tobacco Use Types Packs/Day Years Used Date Smoking Tobacco: Never Smokeless Tobacco: Never Alcohol Use Standard Drinks/Week Comments No 0 (1 standard drink = 0.6 oz pur e alcohol) Sex and Gender Information Value Date Recorded Sex Assigned at Not on file Legal Sex Male 8:46 AM [facility] Gender Identity Not on file Sexual Orientation Not on file documented as of this encounter Plan of Treatment Not on file documented as of this encounter Visit Diagnoses Not on filedocumented in this encounter Care Teams Sat Instructor Relationship Specialty Start Date End Date Srikanth Danielson MD 531 [facility] 100 [place] [address] PCP - General Family Medicine 11/03/18 documented as of this encounter
--- OUTSIDE RECORDS SUMMARY | 2025-03-15 15:24 | XMS_ITS | Encounter Summary ---
Author Organization [facility] Address [address] [place] [address] Phone Care Team Providers Care Sweat Band Sewer Name Role Phone Sriknath Danielson MD Primary Care Provider [phone] Reason for Visit * Reason Comments Med Refill Encounter Details Date Type Department Care Team ([facility] st Contact Info) Description 08/15/2021 Refill [facility] 5[address] [facility] 1 [place] [address] Estiven Dubois MD 5003 [facility] 1 [place] [address] Social History Tobacco Use Types Packs/Day Years Used Date Smoking Tobacco: Never Smokeless Tobacco: Never Alcohol Use Standard Drinks/Week Comments No 0 (1 standard drink = 0.6 oz pur e alcohol) Sex and Gender Information Value Date Recorded Sex Assigned at Not on file Legal Sex Male 8:46 AM [facility] Gender Identity Not on file Sexual Orientation Not on file documented as of this encounter Plan of Treatment Not on file documented as of this encounter Visit Diagnoses Not on filedocumented in this encounter Care Teams Sweat Band Sewer Relationship Specialty Start Date End Date Srikanth Danielson MD 531 [facility] 100 [place] [address] PCP - General Family Medicine 11/03/18 documented as of this encounter
--- OUTSIDE RECORDS SUMMARY | 2025-03-15 15:24 | XMS_ITS | Encounter Summary ---
Author Organization [facility] Address [address] [place] [address] Phone Care Team Providers Care Manager Income Tax Name Role Phone Srikanth Danielson MD Primary Care Provider [phone] Reason for Visit * Reason Comments Med Refill Encounter Details Date Type Department Care Team (Late st Contact Info) Description 02/17/2019 Refill [facility] [address] [facility] [place] [address] Dulce Wang, AMBULANCE OPERATIONS SUPERVISOR 5003 [facility] 1 [place] [address] Social History Tobacco Use Types Packs/Day Years Used Date Smoking Tobacco: Never Smokeless Tobacco: Never Alcohol Use Standard Drinks/Week Comments No 0 (1 standard drink = 0.6 oz pur e alcohol) Sex and Gender Information Value Date Recorded Sex Assigned at Not on file Legal Sex Male 8:46 AM [facility] Gender Identity Not on file Sexual Orientation Not on file documented as of this encounter Plan of Treatment Not on file documented as of this encounter Visit Diagnoses Not on filedocumented in this encounter Care Teams Manager Income Tax Relationship Specialty Start Date End Date Srikanth Danielson MD [address] [facility] 100 [place] [address] PCP - General Family Medicine 11/03/18 documented as of this encounter
--- OUTSIDE RECORDS SUMMARY | 2025-03-15 15:24 | XMS_ITS | Clinical Summary ---
Author Organization [facility] Address [address] [place] [address] Care Team Providers Care Lay Out Helper Name Role Phone Unavailable Primary Care [...]
--- OUTSIDE RECORDS SUMMARY | 2025-03-15 15:24 | XMS_ITS | Encounter Summary ---
Author Organization [facility] Address [address] [place] [address] Care Team Providers Care Nut Processing Supervisor Name Role Phone Srikanth Hernandez MD Primary Care Prov ider Estiven Dubois MD Unavailable [phone] Rebecca Zuluaga SEED AND FERTILIZER SPECIALIST Unavailable [phone] Mathew Plummer MD Unavailable + [phone] Srikanth Stephens MD Unavailable + [phone] Tootie Kraft SEED AND FERTILIZER SPECIALIST Unavailable + [phone] Minoo Mcgowan MD PhD Unavailable [phone] Encounter Details Date Type Department Care Team (Late st Contact Info) Description 01/08/2023 Telephone [facility] at [facility] [address] [facility] [address] [place] [address] Srikanth Stephens MD [address] [place] [address] [address] [facility] [address] [place] [address] Social History Tobacco Use Types Packs/Day Years [...] often do you attend chur ch or congregational services? Never 02/07/2022 Do you belong to [...] place to sleep or slept in a alf (including now)? 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 Gender Identity Not on file Sexual Orientation Not on file documented as of this encounter Plan of Treatment Not on file documented as of this encounter Visit Diagnoses Not on filedocumented in this encounter Care Teams Nut Processing Supervisor Relationship Specialty Start Date End Date Srikanth Hernandez MD PCP - General Family Medicine 10/16/19 Estiven Dubois MD [address] [address] Consulting Physician Nephrology 10/23/21 Rebecca Zuluaga NP [address] [address] Nurse Practitioner Cardiology 12/27/21 Mathew Plummer MD [facility]5 [facility] [address], [place] [address] Consulting Physician Interventional Cardiology 04/14/22 Srikanth Stephens MD [facility]0 [facility] [address] [facility] [address] [place] [address] Surgeon Surgery 04/28/22 Tootie Kraft NP [address] [place] [address] Nurse Practitioner Medical Oncology 05/22/22 Miono Mcgowan MD PhD [address] [place] [address] Registered Nurse Vascular Surgery 01/06/24 documented as of this encounter
--- OUTSIDE RECORDS SUMMARY | 2025-03-15 15:24 | XMS_ITS | Encounter Summary ---
Author Organization [facility] Address [address] [place] [address] Care Team Providers Care Hvac Engineering Technician Name Role Phone Srikanth Hernandez MD Primary Care Prov ider Estiven Dubois MD Unavailable [phone] Rebecca Zuluaga ENROUTE CONTROLLER Unavailable [phone] Matehw Plummer MD Unavailable + [phone] Srikanth Stephens MD Unavailable + [phone] Tootie Kraft ENROUTE CONTROLLER Unavailable + [phone] Minoo Mcgowan MD PhD Unavailable [phone] Encounter Details Date Type Department Care Team (Late st Contact Info) Description 04/01/2024 Telephone [facility] Access Center at [facility] [address] [facility] [address] [place] [address] Naeem Stephens MD [address] [place] [address] [address] [place] [address] Social History Tobacco Use Types Packs/Day Years [...] often do you attend chur ch or buddhist services? Never 02/07/2022 Do you belong to any clubs o r organizations such as sabianism groups, unions, fraternal or athletic groups, or [...] place to sleep or slept in a assisted (including now)? No 02/07/2022 Personal Safety Answer Date Recorded Have you ever been in or are you currently in a harmful physical or emotional relationship or is someone making you feel afraid or unsafe? Denies 12/30/2023 Sex and Gender Information Value Date Recorded Sex Assigned at Not on file Legal Sex Male 6:58 PM HAND CIGAR MAKING SUPERVISOR Gender Identity Not on file Sexual Orientation Not on file documented as of this encounter Plan of Treatment Not on file documented as of this encounter Visit Diagnoses Not on filedocumented in this encounter Care Teams Hvac Engineering Technician Relationship Specialty Start Date End Date Srikanth Hernandez MD PCP - General Family Medicine 10/16/19 Estiven Dubois MD [address] [address] Consulting Physician Nephrology 10/23/21 Rebecca Zuluaga NP [address] [address] Nurse Practitioner Cardiology 12/27/21 Mathew Plummer MD [address] [facility] [address], [place] [address] Consulting Physician Interventional Cardiology 04/14/22 Srikanth Stephens MD [address] [facility] [address] [facility] [address] [place] [address] Surgeon Surgery 04/28/22 Tootie Kraft, ELANA [address] [place] [address] Nurse Practitioner Medical Oncology 05/22/22 Minoo Mcgowan MD PhD [address] [place] [address] Registered Nurse Vascular Surgery 01/06/24 documented as of this encounter
--- OUTSIDE RECORDS SUMMARY | 2025-03-15 15:24 | XMS_ITS | Encounter Summary ---
Author Organization [facility] Address [address] [place] [address] Care Team Providers Care Director Water And Waste Services Name Role Phone Srikanth Hernandez MD Primary Care Prov ider Estiven Dubois MD Unavailable [phone] Rebecca Zuluaga BUCCARO Unavailable [phone] Mathew Plummer MD Unavailable + [phone] Srikanth Stephens MD Unavailable + [phone] Tootie Kraft [place]O Unavailable + [phone] Minoo Mcgowan MD PhD Unavailable [phone] Encounter Details Date Type Department Care Team (Late st Contact Info) Description 11/13/2023 Telephone [facility] Dialysis Access Center at [facility] [address] [facility] [address] [place] [address] Srikanth Stephens MD [address] [place] [address] [address] [facility] [address] [place] [address] Social History Tobacco Use Types Packs/Day Years [...] often do you attend chur ch or quaker services? Never 02/07/2022 Do you belong to any clubs o r organizations such as jainism groups, unions, fraternal or athletic groups, or [...] a skilled nursing (including now)? No 02/07/2022 Personal Safety Answer Date Recorded Have you ever been in or are you currently in a harmful physical or emotional relationship or is someone making you feel afraid or unsafe? Denies 07/07/2023 Sex and Gender Information Value Date Recorded Sex Assigned at Not on file Legal Sex Male 6:58 PM CONCRETE PUMP OPERATOR Gender Identity Not on file Sexual Orientation Not on file documented as of this encounter Plan of Treatment Not on file documented as of this encounter Visit Diagnoses Not on filedocumented in this encounter Care Teams Director Water And Waste Services Relationship Specialty Start Date End Date Srikanth Hernandez MD PCP - General Family Medicine 10/16/19 Estiven Dubois MD [address] [id number] Consulting Physician Nephrology 10/23/21 Rebecca Zuluaga NP [address] [id number] Nurse Practitioner Cardiology 12/27/21 Mathew Plummer MD [facility] [address] Consulting Physician Interventional Cardiology 04/14/22 Srikanth Stephens MD 4600 [facility] [address] [facility] [address] [place] [address] Surgeon Surgery 04/28/22 Tootie Kraft NP [facility] [id number] Nurse Practitioner Medical Oncology 05/22/22 Minoo Mcgowan MD PhD [address] [place] [address] Registered Nurse Vascular Surgery 01/06/24 documented as of this encounter
--- OUTSIDE RECORDS SUMMARY | 2025-03-15 15:24 | XMS_ITS | Clinical Summary ---
Author Organization [facility] Address [address] [place] [address] Phone Care Team Providers Care Stamping Die Try Out Worker Name Role Phone Srikanth Hernandez MD Primary Care Provider [phone] Social History Tobacco Use Types Packs/Day Years [...] to complete this topic Insurance Care Teams Stamping Die Try Out Worker Relationship Specialty Start Date End Date Srikanth Hernandez MD [address] [address] PCP - General Family Medicine 07/08/23
--- OUTSIDE RECORDS SUMMARY | 2025-03-15 15:24 | XMS_ITS | Clinical Summary ---
Author Organization [facility] Address [address] [place] [address] Phone Care Team Providers Care Book Shelver Name Role Phone Srikanth Danielson MD Primary Care Provider Allergies Active Allergy Reactions Criticality Noted Date Comments Sitagliptin Rash Medium 09/25/2021 Sulfa Antibiotics Hives,Itching Medium 09/25/2021 Medications carvedilol (COREG) 25 MG tablet one tab two times daily 0 6 Active Additional Information Patient taking differently: 12.5 mgOral2 times daily with meals, Reported on 05/29/2022 B Guodvnh-J-Gmldw Acid (TRIPHROCAPS) 1 MG capsule Take by [...] Comments Blood Pressure 129/42 05/29/2022 2:19 PM WORK ADJUSTMENT INSTRUCTOR Pulse 53 05/29/2022 2:19 PM WORK ADJUSTMENT INSTRUCTOR Temperature 36.6 C (97.8 F) 04/17/2021 12:11 PM WORK ADJUSTMENT INSTRUCTOR Respiratory Rate - - Oxygen Saturation - - Inhaled Oxygen Concentration - - Weight 81.6 kg (180 lb) 05/29/2022 2:19 PM WORK ADJUSTMENT INSTRUCTOR Height 177.8 cm (5' 10) 05/29/2022 2:19 PM WORK ADJUSTMENT INSTRUCTOR Body Mass Index 25.83 05/29/2022 2:19 PM WORK ADJUSTMENT INSTRUCTOR Plan of Treatment Health Maintenance Due Date Last Done Comments Diabetic Foot Exam 08/15/1957 Ophthalmology Exam 08/15/1957 Pneumococcal PPSV23/PCV13 65 + Years / High and Highest Risk (2 of 4 - PPSV23, PCV20, or PCV21) 04/28/2017 03/03/2017 COVID-19 Vaccine (3 - 2024- season) 2025, 07/09/2020 Influenza Vaccine (#1) [address] [place] [address] [place] [id number] [facility] [employer] MEDICARE ADVANTAGE Care Teams Book Shelver Relationship Specialty Start Date End Date Srikanth Danielson MD [address] [address] PCP - General Family Medicine 11/03/18
--- OUTSIDE RECORDS SUMMARY | 2025-03-15 15:24 | XMS_ITS | Encounter Summary ---
Author Organization [facility] Address [address] [place] [address] Phone Care Team Providers Care Ways Operator Name Role Phone Srikanth Danielson MD Primary Care Provider [phone] Reason for Visit * Reason Comments Med Refill Encounter Details Date Type Department Care Team (Late st Contact Info) Description 09/22/2019 Refill [facility] [address] [facility] 1 [place] [address] Estiven Dubois MD [address] [facility] 1 [place] [address] Social History Tobacco Use Types Packs/Day Years Used Date Smoking Tobacco: Never Smokeless Tobacco: Never Alcohol Use Standard Drinks/Week Comments No 0 (1 standard drink = 0.6 oz pur e alcohol) Sex and Gender Information Value Date Recorded Sex Assigned at Not on file Legal Sex Male 8:[address] [facility] Gender Identity Not on file Sexual Orientation Not on file documented as of this encounter Plan of Treatment Not on file documented as of this encounter Visit Diagnoses Not on filedocumented in this encounter Care Teams Ways Operator Relationship Specialty Start Date End Date Srikanth aDnielson MD [address] [facility] 100 [place] [address] PCP - General Family Medicine 11/03/18 documented as of this encounter
--- OUTSIDE RECORDS SUMMARY | 2025-03-15 15:24 | XMS_ITS | Encounter Summary ---
Author Organization [facility] Address [address] [place] [address] Care Team Providers Care Sheet Metal Duct Worker Supervisor Name Role Phone Srikanth Hernandez MD Primary Care Prov ider Estiven Dubois MD Unavailable [phone] Rebecca Zuluaga PHOTOENGRAVER APPRENTICE Unavailable [phone] Mathew Plummer MD Unavailable + [phone] Srikanth Stephens MD Unavailable [phone] Tootie Kraft PHOTOENGRAVER APPRENTICE Unavailable + [phone] Minoo Mcgowan MD PhD Unavailable [phone] Encounter Details Date Type Department Care Team (Late st Contact Info) Description 09/16/2022 Telephone [facility] Medical Office Building [address] [place] [address] Srikanth Stephens MD [facility] [address] [facility] [address] [place] [address] Social History Tobacco Use Types Packs/Day Years [...] week 02/07/2022 How often do you attend [facility] or hoahaoism services? Never 02/07/2022 Do you belong to [...] place to sleep or slept in a fci (including now)? No 02/07/2022 Sex and Gender Information Value Date Recorded Sex Assigned at Not on file Legal Sex Male 6:58 PM PRICE CLERK Gender Identity Not on file Sexual Orientation Not on file documented as of this encounter Plan of Treatment Not on file documented as of this encounter Visit Diagnoses Not on filedocumented in this encounter Care Teams Sheet Metal Duct Worker Supervisor Relationship Specialty Start Date End Date Srikanth Hernandez MD PCP - General Family Medicine 10/16/19 Estiven Dubois MD [address] [address] Consulting Physician Nephrology 10/23/21 Rebecca Zuluaga NP [address] [address] Nurse Practitioner Cardiology 12/27/21 [place] [address] [place] [address] [place], [place] [address] Consulting Physician Interventional Cardiology 04/14/22 Srikanth Stephens MD [address] [facility] [address] [facility] [address] [place] [address] Surgeon Surgery 04/28/22 Tootie Kraft NP [address] [place] [address] [address] Nurse Practitioner Medical Oncology 05/22/22 Minoo Mcgowan MD PhD [address] [place] [address] Registered Nurse Vascular Surgery 01/06/24 documented as of this encounter
--- OUTSIDE RECORDS SUMMARY | 2025-03-15 15:26 | XMS_ITS | Encounter Summary ---
Author Organization [facility] Address [address] [place] [address] Care Team Providers Care Chipper Operator Name Role Phone Srikanth Hernandez MD Primary Care Prov ider Bon Izquierdo MD Unavailable [phone] Estiven Dubois MD Unavailable [phone] Rebecca Zuluaga SUPPLIER RELATIONSHIP DIRECTOR Unavailable [phone] Mathew Plummer MD Unavailable + [phone] Srikanth Stephens MD Unavailable [phone] Tootie Kraft SUPPLIER RELATIONSHIP DIRECTOR Unavailable + [phone] Minoo Mcgowan MD PhD Unavailable [phone] Encounter Details Date Type Department Care Team (Late st Contact Info) Description 04/18/2022 Telephone [facility] at [facility] [address] [facility] [address] [place] [address] Srikanth Stephens MD [address] [facility] [address] [place] [address] Social History Tobacco Use Types Packs/Day Years [...] often do you attend chur ch or faith services? Never 02/07/2022 Do you belong to any clubs o r organizations such as confucianism groups, unions, fraternal or athletic groups, or [...] on file Legal Sex Male 6:58 PM CINDER PITMAN Gender Identity Not on file Sexual Orientation Not on file documented as of this encounter Functional Status documented as of this encounter Plan of Treatment Not on file documented as of this encounter Visit Diagnoses Not on filedocumented in this encounter Additional Health Concerns Infection Onset Date Last Indicated Resolved Time COVID: Suspected 04/30/2022 04/30/2022 04/30/2022 11:31 AM CINDER PITMAN documented as of this encounter Care Teams Chipper Operator Relationship Specialty Start Date End Date Srikanth Hernandez MD PCP - General Family Medicine 10/16/19 Bon Izquierdo MD Consulting Physician Medical Oncology 10/21/21 05/21/22 Estiven Dubois MD [address] [address] Consulting Physician Nephrology 10/23/21 Rebecca Zuluaga NP [address] [address] Nurse Practitioner Cardiology 12/27/21 Mathew Plummer MD [facility]5 [facility] [address], [place] [address] Consulting Physician Interventional Cardiology 04/14/22 Srikanth Stephens MD [address] [facility] [address] [facility] [address] [place] [address] Surgeon Surgery 04/28/22 Tootie Kraft, ELANA [address] [place] [address] Nurse Practitioner Medical Oncology 05/22/22 Minoo Mcgowan MD PhD [address] [place] [address] Registered Nurse Vascular Surgery 01/06/24 documented as of this encounter
--- OUTSIDE RECORDS SUMMARY | 2025-03-15 15:26 | XMS_ITS ---
Author Organization [facility] [address] Address [address] [place] [address] Care Team Providers Care Rehab Trainer Name Role Phone Srikanth Hernandez MD Primary Care Prov ider Estiven Dubois MD Unavailable [phone] Rebecca Zuluaga NP Unavailable Mathew Plummer MD Unavailable + [phone] Srikanth Stephens MD Unavailable [phone] Tootie Kraft NP Unavailable [phone]- [phone] Minoo Mcgowan MD PhD Unavailable Dialysis Access Sites Type Status Location Placement Date Removal Da te AV graft Active Left Upper Arm - Anterior 04/28/2022 Procedures Procedure Name Priority Date/Time Associated Diagnosis Comments INTRO CATH DIALYSIS CIRCUIT DX ANGRPH FLUOR 86809 Routine 12/15/2024 10:01 AM CDT ESRD (end [...] HEPATITIS PANEL, ACUTE STAT 07/08/2023 7:12 AM EARLY CHILDHOOD from Last 3 Months or Most Recently [...] of L carotid artery. Patient transferred to [facility] for further evaluation and treatment. - [...] reports a follow up appointment with his maintenance pipefitter on Thursday. Recommend patient to take blood pressure medication at home and monitor blood pressures at home. Also advised patient to notify primary care provider/maintenance pipefitter of elevated blood pressure for further management. [...] dialysis. Assessment & Plan (03/31/2024 4:40 PM EARLY CHILDHOOD): Patient with increased velocity associated with left axillary stent, fortunately asymptomatic. Will plan for left upper extremity AV fistulogram with possible intervention. Risks of the procedure including but not limited to bleeding, infection, nerve injury, stroke, , myocardial infarction communicated patient full understanding. Wished to proceed Assessment & Plan (12/29/2023 10:36 AM CDT): - CAITLINE AV fistula, dialyzes MWF at [facility] - Renal consult for inpatient HD Assessment [...] procedure. Assessment & Plan (04/14/2022 10:44 AM EARLY CHILDHOOD): Patient seen today for new access evaluation. Sewing Inspector is Dr. Dubois. Previous vein mapping obtained [...] glipizide Assessment & Plan (04/14/2022 10:41 AM EARLY CHILDHOOD): History of diabetes that is being controlled [...] often do you attend chur ch or advent services? Never 02/07/2022 Do you belong to any clubs o r organizations such as adventist groups, unions, fraternal or athletic groups, or [...] on file Legal Sex Male 6:58 PM EARLY CHILDHOOD Gender Identity Not on file Sexual Orientation [...] INTRO CATH DIALYSIS CIRCUIT DX ANGRPH FLUOR 13426 (12/15/2024 10:01 AM CDT) Anatomical Region Laterality Modality X-Ray Angiograph y Narrative 12/15/2024 10:02 AM CDT Please see OpNote for result. us Naeem Stephens MD CV CARDIAC CATH PROCEDURES Final Result * (ABNORMAL) eGFR (12/15/2024 7:56 AM CDT) [facility] eGFR 15(L) >=60 mL/min/1. 73 m2 Comment: [...] MD LAB BLOOD ORDERABLES Final Resul t [facility] [address] [facility] Department of Laboratories [place], [place] [id number] * (ABNORMAL) Differential, auto (12/15/2024 7:56 AM CDT) [facility] Neutrophil abs 4.36 1.50 - 6.50 K/cumm Imm gran abs 0.02 0.00 - 0.10 K/cumm [facility] Lymphocyte abs 1.18 0.80 - 3.30 K/cumm [facility] Monocyte abs 0.60 0.20 - 0.80 K/cumm [facility] Eosinophil abs 0.55(H) 0.00 - 0.50 K/cumm [facility] Basophil abs 0.04 0.00 - 0.10 K/cumm [facility] Neutrophil pct 64.6 % [facility] Comment: Interpretive Data Percent cell count reference [...] MD LAB BLOOD ORDERABLES Final Resul t [facility] [address] [facility] Department [place] [address] * (ABNORMAL) CBC with auto differential (12/15/2024 7:56 AM CDT) WBC 6.75 3.80 - 9.90 K/cumm Hgb 10.0(L) 13.0 - 17.5 g/dL [facility] Hct 31.1(L) 38.9 - 50.3 % [facility] Plt 103(L) 150 - 400 K/cumm [facility] MPV 9.0(L) 9.1 - 12.3 fL [facility] RBC 3.39(L) 4.30 - 5.80 M/cumm [facility] MCV 91.7 81.3 - 96.4 fL [facility] MCH 29.5 27.1 - 33.3 pg [facility] MCHC 32.2(L) 32.3 - 35.7 g/dL [facility] RDW CV 15.8(H) 11.1 - 14.9 % [facility] RDW SD 52.7(H) 35.7 - 48.1 fL [facility] NRBC abs 0.00 0.00 - 0.01 K/cumm [facility] Blood 12/15/2024 7:56 AM CDT 12/15/2024 8:00 AM CDT Naeem Stephens MD LAB BLOOD ORDERABLES Final Resul t Performing Organization Address [facility] de Phone Number [address] [place] [address] * (ABNORMAL) Protime-INR (12/15/2024 7:56 AM CDT) PT 14.70(H) 12.00 - 14.60 sec Comment:Ref Range High INR 1.14 0.90 - 1.20 [facility] Comment: Ref Range High Interpretive data Oral [...] Final Resul t Performing Organization Address [facility] de Phone Number [address] [place] [address] * (ABNORMAL) Basic metabolic panel (12/15/2024 7:56 AM CDT) Pathologist [facility] Sodium 141 135 - 145 mmol/L Potassium, pl 3.9 3.3 - 4.9 mmol/L [facility] Chloride 98 97 - 110 mmol/L [facility] CO2 28 22 - 32 mmol/L [facility] Anion gap 15 2 - 15 mmol/L [facility] BUN 47(H) 6 - 25 mg/dL [facility] Creatinine 3.92(H) 0.80 - 1.30 mg/dL [facility] Glucose 104 70 - 199 mg/dL [facility] Comment: Interpretive Data Fasting glucose >/= 126 [...] 2022. Calcium 10.1 8.5 - 10.3 mg/dL [facility] Blood 12/15/2024 7:56 AM CDT 12/15/2024 8:00 AM CDT us Naeem Stephens MD LAB BLOOD ORDERABLES Final Resul t [facility] [address] [facility] Department [place] [address] * (ABNORMAL) POCT lipid panel (09/29/2024 12:17 PM CDT) Pathologist [facility] Cholesterol, POC 100 <200 MG/DL HDL, [...] 5.6 % Estimated Average Glucose 143 mg/dL [facility] Comment: The ADA recommends reporting an [...] PhD LAB BLOOD ORDERABLES F inal Result [facility] Department [place] [address] * Hepatitis panel, acute Blood (07/08/2023 7:12 AM EARLY CHILDHOOD) Pathologist [facility] Hep A IgM Nonreactive Nonreactive [facility] [...] Nonreactive [facility] Blood 07/08/2023 7:12 AM EARLY CHILDHOOD 07/08/2023 7:23 AM EARLY CHILDHOOD us Sameed Yecenia Ellsworth MD LAB MICROBIOLOGY - GENERA L ORDERABLES Final Result [facility] [address] [place] [address] from Last 3 Months or Most Recently Relevant to Health Maintenance
--- OUTSIDE RECORDS SUMMARY | 2025-03-15 15:26 | XMS_ITS | Clinical Summary ---
Author Organization [facility] [address] Address [address] [place] [address] Care Team Providers Care Front End Alignment Specialist Name Role Phone Srikanth Hernandez MD Primary Care Prov ider Estiven Dubois MD Unavailable [phone] Rebecca Zuluaga NP Unavailable Mathew Plummer MD Unavailable [phone] Srikanth Stephens MD Unavailable [phone] Tootie Kraft IT APPLICATIONS ANALYST Unavailable [phone] Minoo Mcgowan MD PhD Unavailable Allergies Active [...] of L carotid artery. Patient transferred to [facility] for further evaluation and treatment. - Plavix [...] reports a follow up appointment with his negative retoucher on Thursday. Recommend patient to take blood pressure medication at home and monitor blood pressures at home. Also advised patient to notify primary care provider/negative retoucher of elevated blood pressure for further management. [...] dialysis. Assessment & Plan (03/31/2024 4:40 PM REFRIGERATION ENGINE OPERATOR): Patient with increased velocity associated with left axillary stent, fortunately asymptomatic. Will plan for left upper extremity AV fistulogram with possible intervention. Risks of the procedure including but not limited to bleeding, infection, nerve injury, stroke, , myocardial infarction communicated patient full understanding. Wished to proceed Assessment & Plan (12/29/2023 10:36 AM CDT): - LUE AV fistula, dialyzes MWF at [facility] - Renal consult for inpatient HD [...] procedure. Assessment & Plan (04/14/2022 10:44 AM REFRIGERATION ENGINE OPERATOR): Patient seen today for new access evaluation. Skilled Nursing Facilities Professional is Dr. Dubois. Previous vein mapping obtained [...] glipizide Assessment & Plan (04/14/2022 10:41 AM REFRIGERATION ENGINE OPERATOR): History of diabetes that is being [...] CDT - 12/15/2024 10:30 AM CDT Surgery [facility] Cardiac Coating Machine Feeder [address] [place] [id number] Naeem Stephens MD Dialysis Circuit Angiogram 12/15/2024 7:28 AM CDT - 12/15/2024 11:49 AM CDT Hospital Encounter [facility] Cardiac Coating Machine Feeder [facility] [place] [address] Naeem Stephens MD ESRD (end stage renal disease) on dialysis (FORMERLY [facility]) Discharge Disposition: Discharge to home or self [...] Circuit Angiogram; Surgeon: Naeem Stephens MD; Location: [facility] CARDIAC MARKETING SUPPORT MANAGER; Service: Vascular; Laterality: Left; Medical History Medical [...] How often do you attend chur or mormonism services? Never 02/07/2022 Do you belong to [...] on file Legal Sex Male 6:58 PM REFRIGERATION ENGINE OPERATOR Gender Identity Not on file Sexual [...] history exists Medical Devices Implanted Type Area Mysql Database Developer Device Identifier Shelf Expiration Date Model / Serial / Lot [employer] Device Vascular Closure Femoral Artery Bioabsorbable Dual Method Vascade 6-7fr Collagen [id number] - [id number] Implanted:Qty: 1 on 07/07/2023 by Mathew Plummer MD at [facility] Collagen Left: Common Femoral Artery [employer] 02/25/2025 [id number] / / [id number] [employer] Fords Acuseal 4-7mm 45cm Taper Graft Vascular Sterile [id number] - [id number] - [id number] Implanted:Qty: 1 on 04/28/2022 by Srikanth Stephens MD at [facility] Graft Left: Arm Wl [employer] [id number] 05/19/2024 [id number] / [id number] / Medtronic Card Vasc Surgery 3.0 X 22mm Simon Guadalupe Rx Coronary Stent [id number] - [id number] Implanted:Qty: 1 on 07/07/2023 by Mathew Plummer MD at [facility] Stent Left: Circumflex Coronary Artery Medtronic Card Vasc Surgery 06/07/2025 [id number] / / [id number] Bard Peripheral Vascular Stent Graft Endovascular Arteriovenous [id number] Covera [id number] - [id number] Implanted:Qty: 1 on 01/15/2023 by Srikanth Stephens MD at [facility] Left: Arm Bard Peripheral Vascular 06/06/2024 [id number] / / [id number] Procedures Procedure Name Priority Date/Time Associated Diagnosis Comments INTRO CATH DIALYSIS CIRCUIT DX ANGRPH FLUOR 26173 Routine 12/15/2024 10:01 AM CDT ESRD (end [...] HEPATITIS PANEL, ACUTE STAT 07/08/2023 7:12 AM REFRIGERATION ENGINE OPERATOR from Last 3 Months or Most Recently Relevant to Health Maintenance Results * INTRO CATH DIALYSIS CIRCUIT DX ANGRPH FLUOR 53633 (12/15/2024 10:01 AM CDT) Anatomical Region Laterality [...] LAB BLOOD ORDERABLES Final Resul t MICHAELLE [address] [facility] [place] [address] * (ABNORMAL) Differential, auto (12/15/2024 7:56 AM CDT) Pathologist [facility] Neutrophil abs 4.36 1.50 - 6.50 K/cumm Imm gran abs 0.02 0.00 - 0.10 K/cumm [facility] Lymphocyte abs 1.18 0.80 - 3.30 K/cumm [facility] Monocyte abs 0.60 0.20 - 0.80 K/cumm [facility] Eosinophil abs 0.55(H) 0.00 - 0.50 K/cumm [facility] Basophil abs 0.04 0.00 - 0.10 K/cumm [facility] Neutrophil pct 64.6 % [facility] Comment: Interpretive Data Percent cell count reference ranges are not reported, since discordance with absolute values may lead to misinterpretation of CBC data. Current Interpretive Data was last revised on 2017. Imm gran pct 0.3 % [facility] Comment: Interpretive Data Percent cell count reference ranges are not reported, since discordance with absolute values may lead to misinterpretation of CBC data. Current Interpretive Data was last revised on 2017. Lymphocyte pct 17.5 % [facility] Comment: Interpretive Data Percent cell count reference ranges are not reported, since discordance with absolute values may lead to misinterpretation of CBC data. Current Interpretive Data was last revised on 2017. Monocyte pct 8.9 % [facility] Comment: Interpretive Data Percent cell count reference ranges are not reported, since discordance with absolute values may lead to misinterpretation of CBC data. Current Interpretive Data was last revised on 2017. Eosinophil pct 8.1 % [facility] Comment: Interpretive Data Percent cell count reference ranges are not reported, since discordance with absolute values may lead to misinterpretation of CBC data. Current Interpretive Data was last revised on 2017. Basophil pct 0.6 % [facility] Comment: Interpretive Data Percent cell count reference ranges are not reported, since discordance with absolute values may lead to misinterpretation of CBC data. Current Interpretive Data was last revised on 2017. Blood 12/15/2024 7:56 AM CDT 12/15/2024 8:00 AM CDT Naeem Stephens MD LAB BLOOD ORDERABLES Final Resul t Performing Organization Address City/[facility] Co de Phone Number [address] [place] [address] * (ABNORMAL) CBC with auto differential (12/15/2024 7:56 AM CDT) WBC 6.75 3.80 - 9.90 K/cumm Hgb 10.0(L) 13.0 - 17.5 g/dL [facility] Hct 31.1(L) 38.9 - 50.3 % [facility] Plt 103(L) 150 - 400 K/cumm [facility] MPV 9.0(L) 9.1 - 12.3 fL [facility] RBC 3.39(L) 4.30 - 5.80 M/cumm [facility] MCV 91.7 81.3 - 96.4 fL [facility] MCH 29.5 27.1 - 33.3 pg [facility] MCHC 32.2(L) 32.3 - 35.7 g/dL [facility] RDW CV 15.8(H) 11.1 - 14.9 % [facility] RDW SD 52.7(H) 35.7 - 48.1 fL [facility] NRBC abs 0.00 0.00 - 0.01 K/cumm [facility] Blood 12/15/2024 7:56 AM CDT 12/15/2024 8:00 AM CDT Naeem Stephens MD LAB BLOOD ORDERABLES Final Resul t Performing Organization Address City/[facility]/ZIP Co de Phone Number [address] [place] [address] * (ABNORMAL) Protime-INR (12/15/2024 7:56 AM CDT) PT 14.70(H) 12.00 - 14.60 sec Comment:Ref Range High INR 1.14 0.90 - 1.20 [facility] Comment: Ref Range High Interpretive [...] MD LAB BLOOD ORDERABLES Final Resul t [facility] [address] [facility] Department [place] [address] * (ABNORMAL) Basic metabolic panel (12/15/2024 7:56 AM CDT) Sodium 141 135 - 145 mmol/L Potassium, pl 3.9 3.3 - 4.9 mmol/L [facility] Chloride 98 97 - 110 mmol/L [facility] CO2 28 22 - 32 mmol/L [facility] Anion gap 15 2 - 15 mmol/L [facility] BUN 47(H) 6 - 25 mg/dL [facility] Creatinine 3.92(H) 0.80 - 1.30 mg/dL [facility] Glucose 104 70 - 199 mg/dL [facility] Comment: Interpretive Data Fasting glucose [...] ORDERABLES Final Resul t Performing Organization Address City/State/[facility] Co [place] Phone Number MICHAELLE [address] [facility] Department [place] [address] * (ABNORMAL) POCT lipid panel (09/29/2024 12:17 [...] % Estimated Average Glucose 143 mg/dL MICHAELLE [facility] Comment: The ADA recommends reporting an estimated [...] ORDERABLES F inal Result Performing Organization Address City/State/[facility] Co de Phone Number MICHAELLE H [address] [facility] Department [place] [address] * Hepatitis panel, acute Blood (07/08/2023 7:12 AM REFRIGERATION ENGINE OPERATOR) Hep A IgM Nonreactive Nonreactive [facility] Comment: Interpretive Data: If Hep A IgM Ab is reported as Equivocal, a new sample should be drawn in two weeks for testing. Current interpretive data was last revised on 19. Hep B core IgM Nonreactive Nonreactive [facility] Comment: Interpretive Data If HepB Core IgM Ab is reported as Equivocal, a new sample should be drawn in two weeks for testing. Current interpretive data was last revised on 19. Hep C Ab Nonreactive Nonreactive [facility] Comment: Interpretive Data Nonreactive: Antibodies [...] revised on 2019. HepBsAg Nonreactive Nonreactive [facility] Blood 07/08/2023 7:12 AM REFRIGERATION ENGINE OPERATOR 07/08/2023 7:23 AM REFRIGERATION ENGINE OPERATOR us Sameed Yecenia Ellsworth MD LAB MICROBIOLOGY - GENERA L ORDERABLES Final Result Performing Organization Address City/[facility] Co de Phone Number [facility] [address] [place] [address] from Last 3 Months or Most Recently Relevant to Health Maintenance Insurance IDPA [facility] MEDICARE [facility] Address: [address] [address] [place] [address] [facility] [address] [employer] MEDIC[employer] PPO IDPA [employer] MED[employer] PPO IDPA [facility] MEDICARE [facility] Address: [address] [address] [place] [address] Advance Directives For more information, please contact: [phone] * Full Code (Latest Code Status on [...] 3:25 PM 02/10/2022 6:01 PM Care Teams Front End Alignment Specialist Relationship Specialty Start Date End Date Srikanth Hernandez MD PCP - General Family Medicine 10/16/19 Estiven Dubois MD [address] [address] Consulting Physician Nephrology 10/23/21 Rebecca Zuluaga NP [address] [address] Nurse Practitioner Cardiology 12/27/21 Mathew Plummer MD [address] [place], [place] [address] [address] Consulting Physician Interventional Cardiology 04/14/22 Srikanth Stephens MD [address] [facility] [address] [facility] [address] [place] [address] Surgeon Surgery 04/28/22 Tootie Kraft, ELANA [address] [place] [id number] Nurse Practitioner Medical Oncology 05/22/22 Minoo Mcgowan MD PhD [id number] [place] [address] Registered Nurse Vascular Surgery 01/06/24
[2025-03-15 15:36] LABS: Influenza A QL RT-PCR Negative (Negative); Influenza B QL RT-PCR Negative (Negative); RSV RNA, RT-PCR Negative (Negative); SARS-CoV-2 RNA PCR Negative (Negative)
[2025-03-15 16:25] VITALS: BP 192/89; PULSE 76; RESP 17; O2SAT 100
[2025-03-15 16:26] VITALS: PULSE 76
[2025-03-15 18:34] VITALS: BMI 25.7
--- NOTE | 2025-03-15 18:34 | ADMGEN ---
This patient, Abel Pike, was admitted to [facility] Surg Room 332-01. Patient/family oriented to hospital policies and general routines including ID bracelet, bed and alarms, visiting hours, pain management, procedures, bathroom and other care routines, personal items, smoking policy, room service/diet, and visiting hours. Information on how to activate the Rapid Response Team has been discussed. Patient/Family are encouraged to report perceived risks to care and to ask questions if they do not understand what they are told or what they should do.
[2025-03-15 20:43] VITALS: BP 181/73; PULSE 74; RESP 14; TEMP 36.6; O2SAT 100
[2025-03-15] MEDS: DOXYCYCLINE HYCLATE 100 MG TABLET PO (21:30)
[2025-03-15 21:47] LABS: MRSA (PCR) DETECTED (NOT DETECTE)
[2025-03-15 22:33] VITALS: BP 162/69
[2025-03-16] VITALS (23 sets, daily range): BP systolic 143–185; BP diastolic 63–90; PULSE 75–90; RESP 16–20; TEMP 35.9–37.1; O2SAT 97–100
--- NOTE | 2025-03-16 01:02 | PM.IMHP ---
H&P: HPI History of Present Illness Date/Time: 03/16/25 01:00 Chief Complaint: Unable to stay at home by himself Narrative: 79-year-old male with a past medical history type 2 diabetes mellitus with peripheral neuropathy, retinopathy, chronic indwelling Sheriff catheter and end-stage renal disease on hemodialysis who presented to the ER under the direction of his primary care physician as he is unable to care for himself at home. His is currently hospitalized and was evaluated in the ER today as well. The patient uses a scooter for mobility and his is his primary caregiver. His is also chronically debilitated and plans to discharge home to the daughter's house. Patient was unable to stand from his scooter in the ER or ambulate unassisted. Patient has hemodialysis Thursday and was unable to go today dialysis since his was in the ER being evaluated. The patient had been on dialysis since 2022. Labs in the ER demonstrated a slight decrease in his hemoglobin down to 8.5 from his usual 10. His electrolyte panel is stable. His initial glucoses were in the mid 200s but came down to 179 by the time he arrived to the medical floor. He was treated for a UTI with Serratia on February 26, 2025. He was started on Cipro on the and switched to Keflex on the . His urine culture was sensitive to both of these organisms. He a culture from the ulceration on his penile meatus on 03/06/2025 that grew out MRSA with light growth and light growth Serratia as well as mixed skin tanvi. He was given a script for doxycycline on the although cultures did not suggest sensitivity to doxycycline. Patient is not febrile and has a relatively normal white count. Despite being alert oriented to the fact that he is in the hospital, want, year and name of the current president the patient is not the best historian. He actually had trouble remembering which hospital we are at but knew that his son had been born at this hospital. On examination and Sheriff catheter in place that is present for ?a couple of weeks?. He had yost mucoid a adherent material circumferentially to the urethral meatus surrounding the catheter, he also reported pain in his feet on examination of his feet he is toenails were long and overgrown. Some of his toenails more actually embedding into the bottom surface of his toes while other toenails were curled. Patient did not have any purulence or drainage. He denied any nausea or vomiting. He has not had any fevers. He is chronically chilled. He denies any diarrhea or changes in bowel habits. Review of Systems Review of Systems: 12 systems were reviewed with pertinent positives and negatives per HPI. Except as documented in the HPI, all other systems were reviewed and are negative. [facility] Past Medical History Medical History (Updated 03/15/25 @ 21:45 by Rebecca Marcelino DO) Dependence on nocturnal oxygen therapy Asymptomatic stenosis of left carotid artery Hemiparesis affecting right side as late effect of cerebrovascular accident Pulmonary hypertension Diabetic neuropathy Diabetic retinopathy Pulmonary hypertension Combined systolic and diastolic congestive heart failure Echocardiogram 10/2021: Mild concentric left ventricular hypertrophy, moderate left ventricular enlargement, moderate global left ventricular systolic dysfunction with EF of 30%, diastolic dysfunction, severe left atrial enlargement, mild right atrial enlargement, mild aortic valve regurgitation, moderate pulmonary hypertension with RVSP of 53, moderate tricuspid regurgitation End-stage renal disease Hemodialysis started June 2022; managed by Dr. 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 Abnormal thumb on the left hand Anemia of chronic disease Allergic rhinitis Chronic sinusitis Eczema Ulcer Hyperlipidemia Surgical History Surgical History Status post creation of arteriovenous fistula Left upper arm Status post cataract extraction of both eyes with insertion of intraocular lens Family History Family History Father Lung cancer Daughter Chronic lung disease Morbid obesity Grandparent Asthma Mother Hypertension Other Diabetes mellitus Heart disease Malignant neoplasm of prostate Social History Social History (Updated 03/15/25 @ 21:33 by Rebecca Marcelino DO) Social History: status: Full code Surrogate decision maker: Smoking status: Never smoker Smokeless tobacco user: chewing tobacco Second hand tobacco smoke exposure: No Alcohol intake: former Alcohol use details: He reports that he drank heavily until 1975 when he found [facility]. Substance use: never Substance use type: does not use Do You Feel Safe in your Home?: Yes Lack of Transportation: No Lack of Food: Never True Current Housing: I Have Housing Concerned About Future Housing: No Difficulty Paying Gas/Electric Bills: No Difficulty Paying for Meds: No Currently Unemployed: No Education: Decline to Answer Difficulty w/ Childcare or Family Care: No Living arrangements: with family Additional living arrangements comments: He and his have been since 1975. He has total of 6 children 5 of which are still living and her relatively healthy. He had 1 daughter who of morbid obesity and chronic lung disease. 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 Gender identity (if verbalized by the patient): Male Sexual Orientation (if Verbalized by the Patient): Straight or Heterosexual Spiritual care concerns: No Agree to blood products: Yes Meds Home Medications and Allergies Home Medications ?Medication ?Instructions ?Recorded ?Confirmed ?Type ferrous sulfate 325 mg (65 mg 325 mg PO BID 01/10/22 03/15/25 History iron) tablet (Iron (ferrous sulfate)) apixaban 5 mg tablet (Eliquis) 5 mg PO BID 01/11/22 03/15/25 History blood-glucose meter (OneTouch #1 ea 01/22/22 03/15/25 Rx Ultra2 Meter kit) clopidogrel 75 mg tablet 75 mg PO DAILY 12/10/23 03/15/25 History loratadine 10 mg capsule 10 mg PO EVERY OTHER DAY 01/06/24 03/15/25 History rosuvastatin 10 mg tablet 10 mg PO DAILY 01/06/24 03/15/25 History cholecalciferol (vitamin D3) 50 50 mcg PO BID #30 tabs 01/17/24 03/15/25 Rx mcg (2,000 unit) tablet coenzyme [id number] E 100 mg-100 1 cap PO DAILY 01/21/24 03/15/25 History unit capsule carvedilol 12.5 mg tablet See Rx Instructions .Route 08/29/24 03/15/25 Rx .COMPLEX #180 tabs blood sugar diagnostic (Accu-Chek #100 ea 10/03/24 03/15/25 Rx Guide test strips) blood-glucose meter (Accu-Chek #1 ea 10/03/24 03/15/25 Rx Guide Me Glucose Meter) furosemide 40 mg tablet See Rx Instructions .Route 12/23/24 03/15/25 Rx .COMPLEX #180 tabs lancets 30 gauge (OneTouch Delica #100 ea 12/26/24 03/15/25 Rx Plus Lancet) glipizide 5 mg tablet See Rx Instructions .Route 01/12/25 03/15/25 Rx .COMPLEX #180 tabs vitamin B complex and vitamin C See Rx Instructions .Route 01/12/25 03/15/25 Rx no.20-folic acid 1 mg capsule .COMPLEX #90 caps (Triphrocaps) doxycycline hyclate 100 mg tablet 100 mg PO BID 7 days #14 tabs 03/13/25 03/15/25 Rx hydralazine 25 mg tablet 50 mg PO BID 03/15/25 03/15/25 History Allergies Allergy/AdvReac Type Severity Reaction Status Date / Time Sulfa (Sulfonamide Allergy Unknown Rash,Unknow Verified 03/15/25 18:46 Antibiotics) n,Unknown,R isaiah sitagliptin (From [facility]) Allergy Rash Verified 03/15/25 18:46 Tea Allergy Nausea and Uncoded 03/02/25 08:47 Vomiting Vital Signs Vital Signs - 24 hr 03/15/25 10:16 03/15/25 16:25 03/15/25 16:26 Temperature 98.2 F Pulse Rate 84 76 76 Respiratory Rate 16 17 Blood Pressure 157/86 H 192/89 H Pulse Oximetry 98 100 03/15/25 20:43 Temperature 97.8 F Pulse Rate 74 Respiratory Rate 14 Blood Pressure 181/73 H Pulse Oximetry 100 Exam Narrative: Weight 76.9 kg BMI 25.8 Const: Other: No acute distress, well-developed well-nourished, appears stated age, lying in bed with head of bed at 22? HENMT: Other: Head is normocephalic atraumatic, pupils are equal and reactive, positive conjunctival pallor, no scleral icterus, mucous membranes are tacky, fair dentition Neck: Other: No JVD, no lymphadenopathy Resp: Other: Clear to auscultation bilaterally, no increased work of breathing Cardio: Other: Irregularly irregular, 2+ bilateral pedal pulses, 2+ right radial pulse, 1+ palpable thrill over the left upper arm AV fistula GI: Other: Soft, nontender, nondistended, positive bowel sounds : Other: Sheriff catheter in place catheter is draining cloudy yellow urine, patient has blue green/yost mucoid tissue surrounding that urethral meatus with associated significant tenderness and beyond that some mild increased erythema Skin: Other: Generalized pallor, non jaundice, dried flaking skin to the feet, toenails are thick overgrown and curled, some of the toenails on the left foot particularly I believe it was the 2nd toe have curled under the toe and her imbedded into the soft tissues but I was unable to tell if it penetrated the skin patient was not all that cooperative with exam due to discomfort, but all toenails were curled upon themselves and or curling into the plantar surface of the toes Neuro: Other: Patient is alert oriented person, place, month, year and name of the current president, patient follows simple command and has no acute localizing neurologic deficits noted Extrem: Other: No clubbing, cyanosis or edema, no diabetic foot wounds or pressure wounds Psych: Other: Patient's he is trying to joke with staff and makes sarcastic comments in his attempts at humor otherwise cooperative H&P: Results Labs Labs: Laboratory Tests 03/15/25 14:30 03/15/25 14:30 03/15/25 03/15/25 03/15/25 14:16 14:30 14:46 WBC 10.4 H RBC 3.11 L Hgb 8.5 L Hct 27.5 L MCV 88.4 MCH 27.3 MCHC 30.9 L RDW 16.1 H Plt Count 231 MPV 8.8 Immature Gran % (Auto) 0.6 H Neut % (Auto) 79.9 H Lymph % (Auto) 7.7 L Shoshone % (Auto) 8.1 Eos % (Auto) 3.4 Baso % (Auto) 0.3 Lymph # (Auto) 0.80 L Shoshone # (Auto) 0.8 H Eos # (Auto) 0.4 H Baso # (Auto) 0.0 Abs Immat Gran (auto) 0.06 H Absolute Neuts (auto) 8.3 H Absolute Nucleated RBC 0.000 Nucleated RBC % 0.0 Sodium 135 L Potassium 4.2 Chloride 97 L Carbon Dioxide 30 Anion Gap 8 BUN 54 H Creatinine 5.67 H Estim Creat Clear Calc 10 Estimated GFR 10 L Glucose 277 H POC Capillary Glucose Calcium 10.1 Total Bilirubin 0.2 AST 21 ALT 14 Alkaline Phosphatase 94 Total Protein 6.9 Albumin 3.4 L Urine Color Yellow Urine Appearance Clear Urine pH 7.0 Ur Specific Armstrong 1.015 Urine Protein 3+ H Urine Glucose (UA) Trace H Urine Ketones Negative Ur Blood (Man) 1+ H Urine Nitrate Negative Urine Bilirubin Negative Urine Urobilinogen 0.2 Leukocyte Esterase Rfl 1+ H Urine RBC 21-50 H Urine WBC 6-10 H Ur Squamous Epith Cells None seen Urine Bacteria None seen Urine Casts 3-5 Urine Yeast (Budding) Present H Nasal MRSA (PCR) Influenza A (RT-PCR) Negative Influenza B (RT-PCR) Negative RSV (RT-PCR) Negative SARS-CoV-2 RNA (RT-PCR) Negative 03/15/25 03/15/25 20:18 20:36 WBC RBC Hgb Hct MCV MCH MCHC RDW Plt Count MPV Immature Gran % (Auto) Neut % (Auto) Lymph % (Auto) Shoshone % (Auto) Eos % (Auto) Baso % (Auto) Lymph # (Auto) Shoshone # (Auto) Eos # (Auto) Baso # (Auto) Abs Immat Gran (auto) Absolute Neuts (auto) Absolute Nucleated RBC Nucleated RBC % Sodium Potassium Chloride Carbon Dioxide Anion Gap BUN Creatinine Estim Creat Clear Calc Estimated GFR Glucose POC Capillary Glucose 179 H Calcium Total Bilirubin AST ALT Alkaline Phosphatase Total Protein Albumin Urine Color Urine Appearance Urine pH Ur Specific Armstrong Urine Protein Urine Glucose (UA) Urine Ketones Ur Blood (Man) Urine Nitrate Urine Bilirubin Urine Urobilinogen Leukocyte Esterase Rfl Urine RBC Urine WBC Ur Squamous Epith Cells Urine Bacteria Urine Casts Urine Yeast (Budding) Nasal MRSA (PCR) Pending Influenza A (RT-PCR) Influenza B (RT-PCR) RSV (RT-PCR) SARS-CoV-2 RNA (RT-PCR) Assessment and Plan Assessment and plan (1) Adult failure to thrive: Code(s): R62.7 - Adult failure to thrive Status: Acute (2) Gait abnormality: Code(s): R26.9 - Unspecified abnormalities of gait and mobility Status: Acute (3) Sheriff catheter in place: Code(s): Z97.8 - Presence of other specified devices Status: Acute (4) Abnormal urinalysis: Code(s): R82.90 - Unspecified abnormal findings in urine Status: Acute (5) Penile lesion: Code(s): N48.9 - Disorder of penis, unspecified Status: Acute (6) End-stage renal disease on hemodialysis: Code(s): N18.6 - End stage renal disease; Z99.2 - Dependence on renal dialysis Status: Chronic (7) Anemia, chronic disease: Code(s): D63.8 - Anemia in other chronic diseases classified elsewhere Status: Chronic (8) Type 2 diabetes mellitus with end-stage renal disease: Code(s): E11.22 - Type 2 diabetes mellitus with diabetic chronic kidney disease; N18.6 - End stage renal disease Status: Chronic (9) Dependence on nocturnal oxygen therapy: Code(s): Z99.81 - Dependence on supplemental oxygen Status: Acute (10) Chronic anticoagulation: Code(s): Z79.01 - half-way (current) use of anticoagulants Status: Acute Plan The patient has been admitted for placement as he has chronic gait instability and is unable to ambulate independently in care for himself at home in the setting of his being acutely hospitalized. Care coordination has been consulted persistence with placement. Will consult PT and OT for discharge plan and recommendations. The patient has abnormal urinalysis in the setting of chronic indwelling Sheriff catheter. Catheter was not exchanged in the ER and given ulceration and wound around the catheter site will hold off on changing the catheter until patient is evaluated by Urology. Urology consult has been placed. The patient does have recent cultures of the penile wound with organisms in sensitivities listed under HPI. Given appearance of move wound and concern for possible infection. Will place patient on Rocephin and vancomycin and request Urology consult. Patient does have end-stage renal disease and missed hemodialysis today his electrolyte panel is stable. Nephrology has been consulted for dialysis management with plan for dialysis tomorrow. Will change the patient's diet from heart healthy to renal dialysis diet with consistent carbohydrate. The patient is having elevated blood pressures which on review of patient's record is not unusual for the patient and given the fact that he missed dialysis. He had not yet received his evening medications for hypertension. These have been reordered to be administered this evening. Will add additional antihypertensives if systolic blood pressure is still elevated above 180. Will repeat renal function panel in a.m.. Patient also has mildly decreased hemoglobin compared to baseline likely due to his anemia in setting of chronic kidney disease. Will defer whether not to give the patient erythropoietin to the nephrology service. The patient has type 2 diabetes mellitus glucoses are currently stable and within goal range for hospitalized patient. Will continue home oral hypoglycemic agent and low-dose sliding scale insulin has been ordered, will check A1c a.c. HS. Hypoglycemia protocol has been added. Will order the patient's home nightly O2. Patient has been admitted as observation status. MEDICAL DECISION MAKING NARRATIVE -Spoke with the ED provider in detail regarding patient's evaluation, workup and management -Patient seen and examined at bedside -Collaborated with patient's nurse at the bedside in detail and addressed all concerns -Labs, electrolytes, radiology, investigations and test results personally reviewed and interpreted unless otherwise specified -ED/Consult/Nursing/Ancilliary notes on the chart reviewed and appreciated -Spoke with patient at bedside and diagnosis and plan of care was discussed. All questions answered. Quality VTE Prophylaxis VTE prophylaxis: pharmacologic ordered (Continue home Eliquis) Hospitalist [facility] Advance Care Plan I have confirmed that the patient's Advanced Care Plan is present, code status is documented, or surrogate decision maker is listed in patient medical record.: Yes Medication Reconciliation I have utilized all available resources to obtain, update and review the patients current medications (includes all prescriptions, OTC, herbals, cannabis, and nutritional supplements).: Yes
[2025-03-16] MEDS: cefTRIAXone 1 GM in SODIUM CHLORIDE 0.9% IV 50 ML 100 ML IVPB (03:42)
[2025-03-16] MEDS: VANCOMYCIN 1,500 MG/NS 500 ML 1,500 MG/500 ML BAG 250 MG IVPB (04:15)
[2025-03-16 05:56] LABS: Hematocrit 27.3 % (42.0-52.0); Hemoglobin 8.3 g/dL (14.0-18.0); Mean Corpuscular HGB Conc 30.4 g/dl (32-36); Mean Corpuscular Hemoglobin 27.5 pg (26-34); Mean Corpuscular Volume 90.4 fl (80-100); Platelet Count Result 224 k/mm3 (150-375); Red Blood Count 3.02 M/mm3 (4.6-6.20); White Blood Count 9.7 K/mm3 (4.5-10.0)
[2025-03-16 06:21] LABS: Albumin Level 3.1 g/dL (3.5-5.1); Anion Gap 7 mmol/L (4-12); Blood Urea Nitrogen 58 mg/dL (9-20); CRP 3.3 mg/dL (<1.0); Calcium 9.7 mg/dL (8.4-10.2); Carbon Dioxide 28 mmol/L (22-30); Chloride 101 mmol/L (98-107); Estimated CRCL calculation 9 ml/min; Estimated Glomerular Filt Rate 9; Glucose 166 mg/dL (65-110); Potassium 4.1 mmol/L (3.4-5.0); Sodium 136 mmol/L (137-145)
[2025-03-16 06:49] LABS: Hepatitis B Surface Antigen Negative (Negative)
[2025-03-16 07:25] LABS: Hepatitis B Surface Anti Res Positive
--- NOTE | 2025-03-16 08:31 | P.PNIM_ITS ---
Progress Note: A&P Assessment and Plan (1) Gait abnormality: Code(s): R26.9 - Unspecified abnormalities of gait and mobility Status: Acute Assessment and Plan: Patient states he uses a cane for short distances and otherwise uses a wheelchair for ambulation. Care coordination has been consulted persistence with placement. Will consult PT and OT for discharge plan and recommendations. (2) Abnormal urinalysis: Code(s): R82.90 - Unspecified abnormal findings in urine Status: Acute Assessment and Plan: Abnormal urinalysis in the setting of chronic indwelling Sheriff catheter. Catheter was not exchanged in the ER and given ulceration and wound around the catheter site will hold off on changing the catheter until patient is evaluated by Urology. - UA: 3+ protein, trace glucose, 1+ blood. 1+ leukocytes, rbc 21-50, 6-10 WBC, yeast present, no bacteria noted - UC obtained on 03/15: pending - previous micro reviewed 02/26/2025: serratia marescens - started on Rocephin on 03/16 (3) Penile lesion: Code(s): N48.9 - Disorder of penis, unspecified Status: Acute Assessment and Plan: Necrotic appearing wound to the penile meatus previously seen on 03/06 when urology evaluated, plan at that time was to downsize catheter and continue abx with outpatient follow up Catheter was not exchanged in the ER given ulceration and wound around the catheter site Penile culture from 03/06: MRSA and serratia marcescens Contact precautions Started on Rocephin and vancomycin Monitor vital signs, I&Os Monitor serum electrolytes, CBC, cultures, WBC and temp curve Urology consulted, appreciate recommendations (4) End-stage renal disease on hemodialysis: Code(s): N18.6 - End stage renal disease; Z99.2 - Dependence on renal dialysis Status: Chronic Assessment and Plan: Patient has been on dialysis since 2022 Hemodialysis Thursday and was unable to go on 03/15 since his was in the ER being evaluated. Nephrology has been consulted for dialysis management (5) Anemia, chronic disease: Code(s): D63.8 - Anemia in other chronic diseases classified elsewhere Status: Chronic Assessment and Plan: Patient also has mildly decreased hemoglobin compared to baseline likely due to his anemia in setting of chronic kidney disease. 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: Code(s): E11.22 - Type 2 diabetes mellitus with diabetic chronic kidney disease; N18.6 - End stage renal disease Status: Chronic Assessment and Plan: - hypoglycemia protocol - POC blood glucose ACHS - home medication - glipizide 5 mg BID - correct regimen ordered - low dose TIDWM (7) Dependence on nocturnal oxygen therapy: Code(s): Z99.81 - Dependence on supplemental oxygen Status: Acute (8) Atrial fibrillation: Code(s): I48.91 - Unspecified atrial fibrillation Status: Acute Assessment and Plan: Chronic Continue eliquis 5 mg BID and carvedilol 12.5 mg (9) Chronic systolic (congestive) heart failure: Code(s): I50.22 - Chronic systolic (congestive) heart failure Status: Chronic Assessment and Plan: Chronic, does not appear in acute exacerbation Time Spent With Patient Time with patient: 25 - 35 minutes Subjective Date/time seen: 03/16/25 08:31 Interval history: 79-year-old male with a past medical history type 2 diabetes mellitus with peripheral neuropathy, retinopathy, chronic indwelling Sheriff catheter and end- stage renal disease on hemodialysis who presented to the ER under the direction of his primary care physician as he is unable to care for himself at home. Patient is pleasant lying comfortably in bed receiving dialysis. He notes that the lesion has been ongoing since the catheters placement. He denies any associated pain but did know drainage around the catheter site. He denies any other UTI like symptoms. He has no complaints at this time denying chest pain, shortness a breath, palpitations, nausea/vomiting, abdominal pain. Review of Systems Review of Systems: All systems reviewed & are unremarkable except as noted in HPI and below Exam Narrative: AF HR 79 RR 16 Spo2 100 BP 146/79 General: male in no acute respiratory distress who is nontoxic appearing, lying semi recumbent in bed receiving dialysis HEENT: Normocephalic. Atraumatic. Extraocular movement intact. Sclera clear and anicteric. No facial asymmetry. Chest: Lungs are clear to auscultation bilaterally. No wheezes or crackles. CV: Heart was regular rate and rhythm. Abd: Abdomen was soft. Nontender. Nondistended. Positive bowel sounds. : necrotic appearing lesion to the penile meatus with purulent drainage and odor Ext: No clubbing, cyanosis, or edema. DP pulses bilaterally. Neuro: Patient is alert. Speech is clear. Objective Data Vital Signs Vital Signs: Vital Signs - 24 hr 03/15/25 10:16 03/15/25 16:25 03/15/25 16:26 Temperature 98.2 F Pulse Rate 84 76 76 Respiratory Rate 16 17 Blood Pressure 157/86 H 192/89 H Pulse Oximetry 98 100 Oxygen Delivery 03/15/25 20:00 03/15/25 20:43 03/15/25 22:33 Temperature 97.8 F Pulse Rate 74 Respiratory Rate 14 Blood Pressure 181/73 H 162/69 H Pulse Oximetry 100 Oxygen Delivery Room Air 03/16/25 05:34 Temperature 98.2 F Pulse Rate 76 Respiratory Rate 20 Blood Pressure 149/63 H Pulse Oximetry 99 Oxygen Delivery Intake/Output Intake/Output: Intake & Output 03/13/25 03/14/25 03/15/25 03/16/25 23:59 23:59 23:59 23:59 Intake Total 100 Balance 100 Meds/Results Medications: Active Medications Generic Name Dose Route Start Last Admin Trade Name Freq PRN Reason Stop Dose Admin Apixaban 5 mg 03/16/25 09:00 Apixaban 5 Mg Tablet PO Q12HR [facility] Carvedilol 12.5 mg 03/15/25 21:20 03/15/25 21:29 Carvedilol 12.5 Mg Tablet PO 12.5 mg Q12HR ALENA Administration Clopidogrel Bisulfate 75 mg 03/16/25 09:00 Clopidogrel Bisulfate 75 Mg Tablet PO DAILY [facility] Dextrose 12.5 gm 03/15/25 21:11 Dextrose 50% 25 Gm/50 Ml Syringe IV PUSH PRN PRN Hypoglycemia Protocol Epoetin Noe-epbx 10,000 units 03/16/25 18:26 Epoetin Noe-Epbx 10,000 Units/Ml Vial IV PUSH 03/16/25 18:27 ONCE ONE Ferrous Sulfate 325 mg 03/16/25 09:00 Ferrous Sulfate 325 Mg Tablet BY MOUTH BID ALENA Furosemide 40 mg 03/16/25 09:00 Furosemide 40 Mg Tablet PO BID [facility] Glipizide 5 mg 03/16/25 08:00 Glipizide 5 Mg Tablet PO BIDWM ALENA Glucagon 1 mg 03/15/25 21:11 Glucagon For Inj 1 Mg Vial IM PRN PRN Hypoglycemia Protocol Glucose 15 gm 03/15/25 21:11 Glucose Oral Gel 15 Gm Of Glucse In 37.5 Gm Tube PO PRN PRN Hypoglycemia Protocol Hydralazine HCl 50 mg 03/15/25 21:10 03/15/25 21:30 Hydralazine Hcl 25 Mg Tablet PO 50 mg BID ALENA Administration Dextrose 1,000 mls @ 100 mls/hr 03/15/25 21:11 Dextrose 5% 1,000 Ml IVPB PRN PRN Hypoglycemia Protocol Ceftriaxone Sodium 1 gm/ 50 mls @ 100 mls/hr 03/16/25 03:00 03/16/25 03:42 Sodium Chloride IVPB 100 mls/hr Q24H ALENA Administration Albumin Human 50 mls @ 999 mls/hr 03/16/25 06:26 Albutein IVPB 04/15/25 06:25 Q10M PRN HYPOTENSION Insulin Aspart 2 - 5 units 03/16/25 08:00 Insulin Aspart (*Bkc) 100 Units/Ml SUB-Q TIDWM [facility] Protocol Loratadine 10 mg 03/16/25 09:00 Loratadine 10 Mg Tablet PO Q48H [facility] Mupirocin 1 applic 03/16/25 09:00 Mupirocin 2% Oint 22 Gm Tube EACH NARE 03/20/25 21:01 Q12HR ALENA Mupirocin 1 applic 03/16/25 09:00 Mupirocin 2% Oint 22 Gm Tube TOPICAL TID [facility] Rosuvastatin Calcium 10 mg 03/16/25 09:00 Rosuvastatin 10 Mg Tablet PO DAILY [facility] Vancomycin HCl 1 each 03/16/25 03:14 Vancomycin For Hemodialysis IVPB PRN PRN Vancomycin Protocol Vitamin D 50 mcg 03/16/25 09:00 Cholecalciferol (Vitamin D3) 25 Mcg (1,000 Units) Tablet PO BID [facility] Labs Labs: Laboratory Results - last 24 hr 03/15/25 03/15/25 03/15/25 14:16 14:30 14:46 WBC 10.4 H RBC 3.11 L Hgb 8.5 L Hct 27.5 L MCV 88.4 MCH 27.3 MCHC 30.9 L RDW 16.1 H Plt Count 231 MPV 8.8 Immature Gran % (Auto) 0.6 H Neut % (Auto) 79.9 H Lymph % (Auto) 7.7 L [place] % (Auto) 8.1 Eos % (Auto) 3.4 Baso % (Auto) 0.3 Lymph # (Auto) 0.80 L [place] # (Auto) 0.8 H Eos # (Auto) 0.4 H Baso # (Auto) 0.0 Abs Immat Gran (auto) 0.06 H Absolute Neuts (auto) 8.3 H Absolute Nucleated RBC 0.000 Nucleated RBC % 0.0 Sodium 135 L Potassium 4.2 Chloride 97 L Carbon Dioxide 30 Anion Gap 8 BUN 54 H Creatinine 5.67 H Estim Creat Clear Calc 10 Estimated GFR 10 L Glucose 277 H POC Capillary Glucose Calcium 10.1 Phosphorus Total Bilirubin 0.2 AST 21 ALT 14 Alkaline Phosphatase 94 C-Reactive Protein Total Protein 6.9 Albumin 3.4 L Urine Color Yellow Urine Appearance Clear Urine pH 7.0 Ur Specific [place] 1.015 Urine Protein 3+ H Urine Glucose (UA) Trace H Urine Ketones Negative Ur Blood (Man) 1+ H Urine Nitrate Negative Urine Bilirubin Negative Urine Urobilinogen 0.2 Leukocyte Esterase Rfl 1+ H Urine RBC 21-50 H Urine WBC 6-10 H Ur Squamous Epith Cells None seen Urine Bacteria None seen Urine Casts 3-5 Urine Yeast (Budding) Present H Nasal MRSA (PCR) Hep Bs Antigen Hep Bs Antibody Influenza A (RT-PCR) Negative Influenza B (RT-PCR) Negative RSV (RT-PCR) Negative SARS-CoV-2 RNA (RT-PCR) Negative 03/15/25 03/15/25 03/16/25 20:18 20:36 05:22 WBC 9.7 RBC 3.02 L Hgb 8.3 L Hct 27.3 L MCV 90.4 MCH 27.5 MCHC 30.4 L RDW 16.3 H Plt Count 224 MPV 8.5 Immature Gran % (Auto) Neut % (Auto) Lymph % (Auto) [place] % (Auto) Eos % (Auto) Baso % (Auto) Lymph # (Auto) [place] # (Auto) Eos # (Auto) Baso # (Auto) Abs Immat Gran (auto) Absolute Neuts (auto) Absolute Nucleated RBC Nucleated RBC % Sodium 136 L Potassium 4.1 Chloride 101 Carbon Dioxide 28 Anion Gap 7 BUN 58 H Creatinine 5.87 H Estim Creat Clear Calc 9 Estimated GFR 9 L Glucose 166 H POC Capillary Glucose 179 H Calcium 9.7 Phosphorus 2.8 Total Bilirubin AST ALT Alkaline Phosphatase C-Reactive Protein 3.3 H Total Protein Albumin Urine Color Urine Appearance Urine pH Ur Specific [place] Urine Protein Urine Glucose (UA) Urine Ketones Ur Blood (Man) Urine Nitrate Urine Bilirubin Urine Urobilinogen Leukocyte Esterase Rfl Urine RBC Urine WBC Ur Squamous Epith Cells Urine Bacteria Urine Casts Urine Yeast (Budding) Nasal MRSA (PCR) Detected A* Hep Bs Antigen Hep Bs Antibody Influenza A (RT-PCR) Influenza B (RT-PCR) RSV (RT-PCR) SARS-CoV-2 RNA (RT-PCR) 03/16/25 03/16/25 05:22 08:02 WBC RBC Hgb Hct MCV MCH MCHC RDW Plt Count MPV Immature Gran % (Auto) Neut % (Auto) Lymph % (Auto) [place] % (Auto) Eos % (Auto) Baso % (Auto) Lymph # (Auto) [place] # (Auto) Eos # (Auto) Baso # (Auto) Abs Immat Gran (auto) Absolute Neuts (auto) Absolute Nucleated RBC Nucleated RBC % Sodium Potassium Chloride Carbon Dioxide Anion Gap BUN Creatinine Estim Creat Clear Calc Estimated GFR Glucose POC Capillary Glucose 163 H Calcium Phosphorus Total Bilirubin AST ALT Alkaline Phosphatase C-Reactive Protein Cancelled Total Protein Albumin 3.1 L Urine Color Urine Appearance Urine pH Ur Specific [place] Urine Protein Urine Glucose (UA) Urine Ketones Ur Blood (Man) Urine Nitrate Urine Bilirubin Urine Urobilinogen Leukocyte Esterase Rfl Urine RBC Urine WBC Ur Squamous Epith Cells Urine Bacteria Urine Casts Urine Yeast (Budding) Nasal MRSA (PCR) Hep Bs Antigen Negative Hep Bs Antibody Positive Influenza A (RT-PCR) Influenza B (RT-PCR) RSV (RT-PCR) SARS-CoV-2 RNA (RT-PCR) Quality VTE Prophylaxis VTE prophylaxis: pharmacologic ordered
--- NOTE | 2025-03-16 09:07 | WPDURCON ---
Assessment and Plan Assessment and plan (1) Penile lesion: Code(s): N48.9 - Disorder of penis, unspecified Status: Acute (2) Sheriff catheter in place: Code(s): Z97.8 - Presence of other specified devices Status: Acute Plan - UA: 3+ protein, trace glucose, 1+ blood. 1+ leukocytes, rbc 21-50, 6-10 WBC, yeast present, no bacteria noted - UC obtained on 03/15: pending - WBC is 9.7 - due to the necrotic wound at the tip of the patient's penis and the need for Sheriff catheter, we will discuss consideration of a suprapubic catheter to enable appropriate wound healing of the penis. - Case discussed with Dr. Tom. Urology Consult Note HPI Date Seen: 03/16/25 Requesting Physician: Mt Patterson MD Primary Care Provider: Kerry Walker DO Consult Narrative Narrative: Abel Pike is a 79 year old male has been admitted for placement as he has chronic gait instability and is unable to ambulate independently in care for himself at home in the setting of his being acutely hospitalized. patient has necrotic wound on tip of the penis in the setting of a chronic Sheriff catheter. patient also has ESRD and has been on dialysis since 2022. He receives hemodialysis Thursday and Thursday. 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 Abnormal thumb on the left hand Anemia of chronic disease Allergic rhinitis Chronic sinusitis Eczema Ulcer Hyperlipidemia Surgical History Surgical History Status post creation of arteriovenous fistula Left upper arm Status post cataract extraction of both eyes with insertion of intraocular lens Family History Family History Father Lung cancer Daughter Chronic lung disease Morbid obesity Grandparent Asthma Mother Hypertension Other Diabetes mellitus Heart disease Malignant neoplasm of prostate Social History Social History (Updated 03/15/25 @ 21:33 by Rebecca Marcelino DO) Social History: status: Full code Surrogate decision maker: Smoking status: Never smoker Smokeless tobacco user: chewing tobacco Second hand tobacco smoke exposure: No Alcohol intake: former Alcohol use details: He reports that he drank heavily until 1975 when he found [facility]. Substance use: never Substance use type: does not use Do You Feel Safe in your Home?: Yes Lack of Transportation: No Lack of Food: Never True Current Housing: I Have Housing Concerned About Future Housing: No Difficulty Paying Gas/Electric Bills: No Difficulty Paying for Meds: No Currently Unemployed: No Education: Decline to Answer Difficulty w/ Childcare or Family Care: No Living arrangements: with family Additional living arrangements comments: He and his have been since 1975. He has total of 6 children 5 of which are still living and her relatively healthy. He had 1 daughter who of morbid obesity and chronic lung disease. 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 Gender identity (if verbalized by the patient): Male Sexual Orientation (if Verbalized by the Patient): Straight or Heterosexual Spiritual care concerns: No Agree to blood products: Yes Meds Home Medications and Allergies Home Medications ?Medication ?Instructions ?Recorded ?Confirmed ?Type ferrous sulfate 325 mg (65 mg 325 mg PO BID 01/10/22 03/15/25 History iron) tablet (Iron (ferrous sulfate)) apixaban 5 mg tablet (Eliquis) 5 mg PO BID 01/11/22 03/15/25 History blood-glucose meter (OneTouch #1 ea 01/22/22 03/15/25 Rx Ultra2 Meter kit) clopidogrel 75 mg tablet 75 mg PO DAILY 12/10/23 03/15/25 History loratadine 10 mg capsule 10 mg PO EVERY OTHER DAY 01/06/24 03/15/25 History rosuvastatin 10 mg tablet 10 mg PO DAILY 01/06/24 03/15/25 History cholecalciferol (vitamin D3) 50 50 mcg PO BID #30 tabs 01/17/24 03/15/25 Rx mcg (2,000 unit) tablet coenzyme [id number] E 100 mg-100 1 cap PO DAILY 01/21/24 03/15/25 History unit capsule carvedilol 12.5 mg tablet See Rx Instructions .Route 08/29/24 03/15/25 Rx .COMPLEX #180 tabs blood sugar diagnostic (Accu-Chek #100 ea 10/03/24 03/15/25 Rx Guide test strips) blood-glucose meter (Accu-Chek #1 ea 10/03/24 03/15/25 Rx Guide Me Glucose Meter) furosemide 40 mg tablet See Rx Instructions .Route 12/23/24 03/15/25 Rx .COMPLEX #180 tabs lancets 30 gauge (QgivTouch Delica #100 ea 12/26/24 03/15/25 Rx Plus Lancet) glipizide 5 mg tablet See Rx Instructions .Route 01/12/25 03/15/25 Rx .COMPLEX #180 tabs vitamin B complex and vitamin C See Rx Instructions .Route 01/12/25 03/15/25 Rx no.20-folic acid 1 mg capsule .COMPLEX #90 caps (Triphrocaps) doxycycline hyclate 100 mg tablet 100 mg PO BID 7 days #14 tabs 03/13/25 03/15/25 Rx hydralazine 25 mg tablet 50 mg PO BID 03/15/25 03/15/25 History Allergies Allergy/AdvReac Type Severity Reaction Status Date / Time Sulfa (Sulfonamide Allergy Unknown Rash,Unknow Verified 03/15/25 18:46 Antibiotics) n,Unknown,R isaiah sitagliptin (From Mayuvia) Allergy Rash Verified 03/15/25 18:46 Tea Allergy Nausea and Uncoded 03/02/25 08:47 Vomiting Vital Signs Vital Signs - 24 hr 03/15/25 10:16 03/15/25 16:25 03/15/25 16:26 Temperature 98.2 F Pulse Rate 84 76 76 Respiratory Rate 16 17 Blood Pressure 157/86 H 192/89 H Pulse Oximetry 98 100 Oxygen Delivery 03/15/25 20:00 03/15/25 20:43 03/15/25 22:33 Temperature 97.8 F Pulse Rate 74 Respiratory Rate 14 Blood Pressure 181/73 H 162/69 H Pulse Oximetry 100 Oxygen Delivery Room Air 03/16/25 05:34 Temperature 98.2 F Pulse Rate 76 Respiratory Rate 20 Blood Pressure 149/63 H Pulse Oximetry 99 Oxygen Delivery Exam Narrative: patient is very agitated and being verbally abusive to staff including myself Const: General: no acute distress Eyes: General: appearance normal, both eyes and all related structures Resp: Effort & Inspection: normal respiratory effort : Other: patient has a necrotic wound around the meatus of his penis. There is a copious amount of purulent drainage. There are chunks of drainage buildup in his depends that he is currently wearing. The odor is very pungent. Urinary Catheter: Urinary Catheter: patent and draining and urine cloudy Skin: General skin exam: normal color Neuro: Speech: normal speech Psych: Speech and movement: Normal speech and movement present Attitude: Belligerent attititude/behavior present Other: It is difficult to determine how Oriented he is due to his abusive nature. He continues to tell us how stupid and ignorant we are when we ask him orientation questions. Results Labs 03/16/25 05:22 03/16/25 05:22 Labs: Short CBC 03/15/25 03/16/25 Range/Units 14:30 05:22 WBC 10.4 H 9.7 (4.5-10.0) K/mm3 Hgb 8.5 L 8.3 L (14.0-18.0) g/dL Hct 27.5 L 27.3 L (42.0-52.0) % Plt Count 231 224 (150-375) k/mm3 BMP 03/15/25 03/16/25 14:30 05:22 Sodium 135 L 136 L Potassium 4.2 4.1 Chloride 97 L 101 Carbon Dioxide 30 28 BUN 54 H 58 H Creatinine 5.67 H 5.87 H Glucose 277 H 166 H Calcium 10.1 9.7 Liver Function 03/15/25 03/16/25 Range/Units 14:30 05:22 Total Bilirubin 0.2 (0.2-1.3) mg/dL AST 21 (17-59) U/L ALT 14 (6-50) U/L Alkaline Phosphatase 94 (38-126) U/L Albumin 3.4 L 3.1 L (3.5-5.1) g/dL Urine 03/15/25 Range/Units 14:16 Urine Color Yellow (Yellow) Urine Appearance Clear (Clear) Urine pH 7.0 (5.0-9.0) Ur Specific [place] 1.015 (1.001-1.035) Urine Protein 3+ H (Negative) mg/dL Urine Glucose (UA) Trace H (Negative) mg/dL
[2025-03-16] MEDS: LIDOCAINE/PRILOCAINE CREAM 2.5-2.5% TUBE 1 EACH TOPICAL (09:40)
[2025-03-16] MEDS: EPOETIN ALFA-EPBX 10,000 UNITS/ML VIAL 10000 UNITS IV PUSH (10:55)
[2025-03-16] MEDS: SODIUM CHLORIDE 0.9% IV 1,000 ML 999 ML IV CONT (10:56)
--- NOTE | 2025-03-16 11:20 | P.CONNP_ITS ---
Assessment and Plan Assessment and plan (1) End-stage renal disease: Code(s): N18.6 - End stage renal disease Status: Chronic Assessment and Plan: * HD today (since missed his treatment yesterday) * resume M/W/F dialysis schedule tomorrow while hospitalized * follow electrolytes, volume status, and clearance (2) Generalized weakness: Code(s): R53.1 - Weakness Status: Acute Assessment and Plan: * in association with gain instability * also with concerns patient may not be able to care for himself * care coordination to assist with possible placement * PT/OT as tolerated (3) Penile lesion: Code(s): N48.9 - Disorder of penis, unspecified Status: Acute Assessment and Plan: * noted on penile meatus * previously seen by Urology on 03/06 ER visit * wound culture at that time with MRSA and Serratia * possibly complicated by UTI * on antibiotics * Urology recommendations noted (4) Anemia: Code(s): D64.9 - Anemia, unspecified Status: Acute Assessment and Plan: * partly due to ESRD * some worsening due to recent infections (?) * Epogen with HD * follow trend of H/H (5) Paroxysmal atrial fibrillation: Code(s): I48.0 - Paroxysmal atrial fibrillation Status: Chronic Assessment and Plan: * rate control strategy * on anticoagulation (6) Chronic combined systolic and diastolic CHF (congestive heart failure): Code(s): I50.42 - Chronic combined systolic (congestive) and diastolic (congestive) heart failure Status: Chronic Assessment and Plan: * noted by previous testing * no evidence of exacerbation * fluid removal with dialysis to maintain euvolemia (7) Hypertension: Code(s): I10 - Essential (primary) hypertension Status: Deleted Assessment and Plan: * elevated on admission * reasonable control at this time * follow trend of hemodynamics (8) 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 Thank you for allowing me to participate in the care of this patient. L History of Present Illness Reason for Consult Consult date: 03/16/25 Reason for consult: end stage renal disease Chief Complaint Chief complaint: Failure to Thrive History of Present Illness Narrative: The patient is a 79-year-old male with a past medical history as outlined below who presented to [facility] ER at the behest of his PCP due to concerns that he is unable to care for himself at home. The patient's , who was the primary caregiver for the patient, was seen in the ER yesterday and subsequently admitted to the hospital. Unfortunately, as she is his main means of transportation to and from dialysis, he was unable to get his scheduled dialysis treatment yesterday. The patient is chronically debilitated baseline and uses scooter for mobility. This apparently is further complicated by the fact that the care providers that come to his home to assist the patient had declined to come there as apparently they found that he was positive for MRSA by recent testing. although the fact that he has some generalized weakness, the patient himself had no specific complaints. However, it was noted in the emergency room that the patient had significant difficulty standing up from his scooter or for that matter ambulating without any assistance. Workup and evaluation emergency room demonstrated the patient to be hemodynamically stable and afebrile. Routine blood test demonstrated a white blood cell count of 10.4, hemoglobin 8.5, platelet count 231, and a chemistry panel consistent with his known history of end-stage renal disease with a glucose of 277, normal LFTs, and negative viral panel with regard to influenza, RSV, and COVID. His urinalysis was significant for 3+ protein, 1+ blood, 1+ leukocyte esterase, 20-50 red blood cells, 6-10 white blood cells, but no bacteria although it should be noted that he has a chronic Sheriff catheter in place. It should be noted that recent urine cultures as well as penile wound cultures that grew out Serratia as well as MRSA and he was on appropriate antibiotics for this infection. Given the concern the patient would be unable to take care of himself at home in conjunction with his chronic medical issues and problems, he was admitted to the hospital for possible placement and management of his medical issues. Since his admission, he has had no acute issues or problems to report. He was not entirely clear on why he came to the ER or for that matter wire was admitted to the hospital since he feels he can care for himself just fine. Renal consultation was requested due to his end-stage renal disease. The patient normally dialyzes on a Thursday, Thursday, Thursday dialysis schedule at [facility] under the care of Dr. Estiven Dubois. As already mentioned above, he missed his dialysis treatment yesterday as his , who usually transports him to dialysis, was unable to do so due to her ER visit/evaluation. Otherwise, in general, he is compliant with his dialysis treatments any usually does not have any significant issues or problems with regard to volume overload or critical electrolytes from review of his monthly dialysis labs. His last dialysis treatment was on Thursday, 03/13 and as far as I am aware, this treatment was uneventful. Currently, at the time my evaluation, he appears to be in no acute distress and is tolerating dialysis without any issues/problems (seen on HD at 11:15am) Review of Systems 2 Review of Systems: As per HPI. 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 Asymptomatic stenosis of left carotid artery Dependence on nocturnal oxygen therapy Diabetic neuropathy Diabetic retinopathy Pulmonary hypertension Combined systolic and diastolic congestive heart failure Echocardiogram 10/2021: Mild concentric left ventricular hypertrophy, moderate left ventricular enlargement, moderate global left ventricular systolic dysfunction with EF of 30%, diastolic dysfunction, severe left atrial enlargement, mild right atrial enlargement, mild aortic valve regurgitation, moderate pulmonary hypertension with RVSP of 53, moderate tricuspid regurgitation End-stage renal disease Hemodialysis started June 2022; managed by Dr. 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 Abnormal thumb on the left hand Anemia of chronic disease Allergic rhinitis Chronic sinusitis Eczema Ulcer Hyperlipidemia Surgical History Surgical History Status post creation of arteriovenous fistula Left upper arm Status post cataract extraction of both eyes with insertion of intraocular lens Family History Family History Father Lung cancer Daughter Chronic lung disease Morbid obesity Grandparent Asthma Mother Hypertension Other Diabetes mellitus Heart disease Malignant neoplasm of prostate Social History Social History (Updated 03/15/25 @ 21:33 by Rebecca Marcelino DO) Social History: status: Full code Surrogate decision maker: Smoking status: Never smoker Smokeless tobacco user: chewing tobacco Second hand tobacco smoke exposure: No Alcohol intake: former Alcohol use details: He reports that he drank heavily until 1975 when he found [facility]. Substance use: never Substance use type: does not use Do You Feel Safe in your Home?: Yes Lack of Transportation: No Lack of Food: Never True Current Housing: I Have Housing Concerned About Future Housing: No Difficulty Paying Gas/Electric Bills: No Difficulty Paying for Meds: No Currently Unemployed: No Education: Decline to Answer Difficulty w/ Childcare or Family Care: No Living arrangements: with family Additional living arrangements comments: He and his have been since 1975. He has total of 6 children 5 of which are still living and her relatively healthy. He had 1 daughter who of morbid obesity and chronic lung disease. 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 Gender identity (if verbalized by the patient): Male Sexual Orientation (if Verbalized by the Patient): Straight or Heterosexual Spiritual care concerns: No Agree to blood products: Yes Meds Home Medications and Allergies Home Medications ?Medication ?Instructions ?Recorded ?Confirmed ?Type ferrous sulfate 325 mg (65 mg 325 mg PO BID 01/10/22 1 History iron) tablet (Iron (ferrous sulfate)) apixaban 5 mg tablet (Eliquis) 5 mg PO BID 01/11/22 History blood-glucose meter (OneTouch #1 ea 01/22/22 03/15/25 Rx Ultra2 Meter kit) clopidogrel 75 mg tablet 75 mg PO DAILY 12/10/2302/16 History loratadine 10 mg capsule 10 mg PO EVERY OTHER DAY 03/15/25 History rosuvastatin 10 mg tablet 10 mg PO DAILY 01/06/2402/16 History cholecalciferol (vitamin D3) 50 50 mcg PO BID #30 tabs 01/17/24 03/15/25 Rx mcg (2,000 unit) tablet coenzyme X45-bgnobyg E 100 mg-100 1 cap PO DAILY 01/2003/15/25 History unit capsule carvedilol 12.5 mg tablet See Rx Instructions .Route 0 08/29/24 03/15/25 Rx .COMPLEX #180 tabs blood sugar diagnostic (Accu-Chek #100 ea 10/03/24 Rx Guide test strips) blood-glucose meter (Accu-Chek #1 ea 10/03/24 03/15/25 Rx Guide Me Glucose Meter) furosemide 40 mg tablet See Rx Instructions .Route 0 12/23/24 03/15/25 Rx .COMPLEX #180 tabs lancets 30 gauge (OneTouch Delica #100 ea 12/26/24 Rx Plus Lancet) glipizide 5 mg tablet See Rx Instructions .Route 0 01/12/25 03/15/25 Rx .COMPLEX #180 tabs vitamin B complex and vitamin C See Rx Instructions .R oute 01/12/25 03/15/25 Rx no.20-folic acid 1 mg capsule .COMPLEX #90 caps (Triphrocaps) doxycycline hyclate 100 mg tablet 100 mg PO BID 7 days #14 tabs 03/13/25 03/15/25 Rx hydralazine 25 mg tablet 50 mg PO BID 03/15/25 History Allergies Allergy/AdvReac Type Severity Reaction Status Date / Time Sulfa (Sulfonamide Allergy Unknown Rash,Unknow Verified 03/15/25 18:46 Antibiotics) n,Unknown,R isaiah sitagliptin (From [facility]) Allergy Rash Verified 03/15/25 18:46 Tea Allergy Nausea and Uncoded 03/02/25 08:47 Vomiting Vital Signs Vital Signs Temp Pulse Resp BP Pulse Ox O2 Del Method 03/16/25 11:15 76 161/73 H 03/16/25 11:00 75 143/64 H 03/16/25 10:45 80 146/73 H 03/16/25 10:30 79 165/76 H 03/16/25 10:15 80 176/77 H 03/16/25 10:05 76 160/78 H 03/16/25 09:55 98.4 F 85 16 155/76 H 97 03/16/25 08:00 Room Air 03/16/25 05:34 98.2 F 76 20 149/63 H 99 03/15/25 22:33 162/69 H 10/29/25 20:43 97.8 F 74 14 181/73 H 100 03/15/25 20:00 Room Air 03/15/25 16:26 76 03/15/25 16:25 76 17 192/89 H 100 Exam 2 Narrative: GENERAL APPEARANCE: elderly but well developed well nourished male in no acute distress HEENT: normocephalic, atraumatic, normal conjunctiva and sclera, nares patient NECK: no lymphadenopathy, thyromegaly, or JVD MOUTH: normal lips, teeth, and gums CARDIOVASCULAR: RRR, normal S1 and S2, no rub detected RESPIRATORY: clear to auscultation bilaterally ABDOMEN: soft, nontender, nondistended, positive bowel sounds present EXTREMITIES: no evidence of cyanosis, clubbing, or edema NEUROLOGICAL: awake and alert; no focal deficits but generalized weakness noted Results Lab Results 03/16/25 05:22 03/16/25 05:22 Lab results: Most recent lab results Calcium 9.7 mg/dL (8.4-10.2) 03/16/25 05:22 Phosphorus 2.8 mg/dL (2.5-4.5) 03/16/25 05:22
[2025-03-16] MEDS: APIXABAN 5 MG TABLET PO ×2 (13:54→20:50)
[2025-03-16] MEDS: CLOPIDOGREL BISULFATE 75 MG TABLET PO (13:54)
[2025-03-16] MEDS: MUPIROCIN 2% OINT 22 GM TUBE 1 APPLIC EACH NARE ×2 (13:54→20:49)
[2025-03-16] MEDS: MUPIROCIN 2% OINT 22 GM TUBE 1 APPLIC TOPICAL ×3 (13:56→16:10)
[2025-03-16] MEDS: LIDOCAINE 2% GEL UROJET 10 ML PKG MUCOUS MEM (13:59)
[2025-03-16] MEDS: FUROSEMIDE 40 MG TABLET PO (16:10)
[2025-03-16] MEDS: CHOLECALCIFEROL (VITAMIN D3) 25 MCG (1,000 UNITS) TABLET 50 MCG PO (16:10)
[2025-03-16] MEDS: FERROUS SULFATE 325 MG TABLET BY MOUTH (16:11)
--- NOTE | 2025-03-16 18:06 | WNDPHOTO ---
PHOTO ONLY - See Nursing Notes and/ or assessments for documentation.
[2025-03-17] VITALS (11 sets, daily range): BP systolic 113–154; BP diastolic 48–71; PULSE 77–94; RESP 12–18; TEMP 36.2–37; O2SAT 95–100
[2025-03-17] MEDS: cefTRIAXone 1 GM in SODIUM CHLORIDE 0.9% IV 50 ML 100 ML IVPB (02:35)
--- NOTE | 2025-03-17 03:13 | PC.NURSE ---
Paper documentation exists on this patient due to [employer] downtime on 03/17/25 from 0100 to 0300.
[2025-03-17] MEDS: VANCOMYCIN 500 MG/NS 100 ML 500 MG/100 ML BAG 100 MG IVPB (05:03)
[2025-03-17 06:37] LABS: Estimated CRCL calculation 15 ml/min; Estimated Glomerular Filt Rate 16
--- NOTE | 2025-03-17 07:05 | WPDHPUPDATE1 ---
History and Physical Update Update Date/Time: 03/17/25 07:05 History and Physical has been reviewed, including an updated exam of the patient. There are NO changes in the patient's condition. Risks, benefits, and alternatives have been discussed and questions answered. Patient agrees to proceed with procedure.
--- NOTE | 2025-03-17 08:54 | PM.IMPN ---
Progress Note: A&P Assessment and Plan (1) Gait abnormality: Code(s): R26.9 - Unspecified abnormalities of gait and mobility Status: Acute Assessment and Plan: Patient states he uses a cane for short distances and otherwise uses a wheelchair for ambulation. Care coordination has been consulted persistence with placement. Will consult PT and OT for discharge plan and recommendations. Recommending home health vs [facility] (2) Abnormal urinalysis: Code(s): R82.90 - Unspecified abnormal findings in urine Status: Acute Assessment and Plan: Abnormal urinalysis in the setting of chronic indwelling Sheriff catheter. Catheter was not exchanged in the ER and given ulceration and wound around the catheter site will hold off on changing the catheter until patient is evaluated by Urology. - UA: 3+ protein, trace glucose, 1+ blood. 1+ leukocytes, rbc 21-50, 6-10 WBC, yeast present, no bacteria noted - UC obtained on 03/15: pending - previous micro reviewed 02/26/2025: serratia marescens - started on Rocephin on 03/16 (3) Penile lesion: Code(s): N48.9 - Disorder of penis, unspecified Status: Acute Assessment and Plan: Necrotic appearing wound to the penile meatus previously seen on 03/06 when urology evaluated, plan at that time was to downsize catheter and continue abx with outpatient follow up Penile culture from 03/06: MRSA and serratia marcescens Contact precautions Started on Rocephin and vancomycin Monitor vital signs, I&Os Monitor serum electrolytes, CBC, cultures, WBC and temp curve Urology consulted, appreciate recommendations s/p flexible cystoscopy and debridement and biopsy of glans penis pathology pending Sheriff was replaced in the OR (4) End-stage renal disease on hemodialysis: Code(s): N18.6 - End stage renal disease; Z99.2 - Dependence on renal dialysis Status: Chronic Assessment and Plan: Patient has been on dialysis since 2022 Hemodialysis Thursday and was unable to go on 03/15 since his was in the ER being evaluated. Nephrology has been consulted for dialysis management (5) Anemia, chronic disease: Code(s): D63.8 - Anemia in other chronic diseases classified elsewhere Status: Chronic Assessment and Plan: Patient also has mildly decreased hemoglobin compared to baseline likely due to his anemia in setting of chronic kidney disease. 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: Code(s): E11.22 - Type 2 diabetes mellitus with diabetic chronic kidney disease; N18.6 - End stage renal disease Status: Chronic Assessment and Plan: - hypoglycemia protocol - POC blood glucose ACHS - home medication - glipizide 5 mg BID - correct regimen ordered - low dose TIDWM (7) Dependence on nocturnal oxygen therapy: Code(s): Z99.81 - Dependence on supplemental oxygen Status: Acute (8) Atrial fibrillation: Code(s): I48.91 - Unspecified atrial fibrillation Status: Acute Assessment and Plan: Chronic Continue eliquis 5 mg BID and carvedilol 12.5 mg (9) Chronic systolic (congestive) heart failure: Code(s): I50.22 - Chronic systolic (congestive) heart failure Status: Chronic Assessment and Plan: Chronic, does not appear in acute exacerbation Time Spent With Patient Time with patient: 25 - 35 minutes Subjective Date/time seen: 03/17/25 08:54 Interval history: 79-year-old male with a past medical history type 2 diabetes mellitus with peripheral neuropathy, retinopathy, chronic indwelling Sheriff catheter and end-stage renal disease on hemodialysis who presented to the ER under the direction of his primary care physician as he is unable to care for himself at home. Patient is pleasant lying in bed. He remains AOx3 at time of assessment. He has no complaints denying chest pain, palpitations, shortness of breath, nausea/vomiting, abdominal pain, penile pain, and dizziness/lightheadedness. Review of Systems Review of Systems: All systems reviewed & are unremarkable except as noted in HPI and below Exam Narrative: AF HR 79 RR 14 Spo2 98 BP 154/64 General: male in no acute respiratory distress who is nontoxic appearing, lying semi recumbent in bed HEENT: Normocephalic. Atraumatic. Extraocular movement intact. Sclera clear and anicteric. No facial asymmetry. Chest: Lungs are clear to auscultation bilaterally. No wheezes or crackles. CV: Heart was regular rate and rhythm. Abd: Abdomen was soft. Nontender. Nondistended. Positive bowel sounds. : necrotic appearing lesion to the penile meatus with foul odor Ext: No clubbing, cyanosis, or edema. DP pulses bilaterally. Neuro: Patient is alert and oriented x3. Speech is clear. Objective Data Vital Signs Vital Signs: Vital Signs - 24 hr 03/16/25 09:55 03/16/25 10:05 03/16/25 10:15 Temperature 98.4 F Pulse Rate 85 76 80 Respiratory Rate 16 Blood Pressure 155/76 H 160/78 H 176/77 H Pulse Oximetry 97 Oxygen Delivery 03/16/25 10:30 03/16/25 10:45 03/16/25 11:00 Temperature Pulse Rate 79 80 75 Respiratory Rate Blood Pressure 165/76 H 146/73 H 143/64 H Pulse Oximetry Oxygen Delivery 03/16/25 11:15 03/16/25 11:30 03/16/25 11:45 Temperature Pulse Rate 76 77 76 Respiratory Rate Blood Pressure 161/73 H 164/73 H 180/71 H Pulse Oximetry Oxygen Delivery 03/16/25 12:00 03/16/25 12:15 03/16/25 12:30 Temperature Pulse Rate 82 84 81 Respiratory Rate Blood Pressure 174/75 H 180/84 H 171/72 H Pulse Oximetry Oxygen Delivery 03/16/25 12:45 03/16/25 13:00 03/16/25 13:07 Temperature Pulse Rate 82 82 83 Respiratory Rate Blood Pressure 185/79 H 184/84 H 176/76 H Pulse Oximetry Oxygen Delivery 03/16/25 13:17 03/16/25 13:53 03/16/25 15:24 Temperature 98.4 F 98.7 F Pulse Rate 86 85 79 Respiratory Rate 16 16 Blood Pressure 182/90 H 146/79 H Pulse Oximetry 98 100 Oxygen Delivery 03/16/25 20:00 03/16/25 20:49 03/16/25 21:42 Temperature 97.4 F L Pulse Rate 90 90 90 Respiratory Rate 16 16 Blood Pressure 146/66 H Pulse Oximetry 100 100 Oxygen Delivery Room Air 03/16/25 23:40 03/17/25 06:00 Temperature 97.5 F L Pulse Rate 79 Respiratory Rate 14 Blood Pressure 154/64 H Pulse Oximetry 100 98 Oxygen Delivery Room Air Intake/Output Intake/Output: Intake & Output 03/14/25 03/15/25 03/16/25 03/17/25 23:59 23:59 23:59 23:59 Intake Total 690 250 Output Total 1250 550 Balance -560 -300 Meds/Results Medications: Active Medications Generic Name Dose Route Start Last Admin Trade Name Freq PRN Reason Stop Dose Admin Apixaban 5 mg 03/16/25 09:00 03/16/25 20:50 Apixaban 5 Mg Tablet PO 5 mg Q12HR ALENA Administration Carvedilol 12.5 mg 03/15/25 21:20 03/16/25 20:49 Carvedilol 12.5 Mg Tablet PO 12.5 mg Q12HR ALENA Administration Clopidogrel Bisulfate 75 mg 03/16/25 09:00 03/16/25 13:54 Clopidogrel Bisulfate 75 Mg Tablet PO 75 mg DAILY ALENA Administration Dextrose 12.5 gm 03/15/25 21:11 Dextrose 50% 25 Gm/50 Ml Syringe IV PUSH PRN PRN Hypoglycemia Protocol Ferrous Sulfate 325 mg 03/16/25 09:00 03/16/25 16:11 Ferrous Sulfate 325 Mg Tablet BY MOUTH 325 mg BID ALENA Administration Furosemide 40 mg 03/16/25 09:00 03/16/25 16:10 Furosemide 40 Mg Tablet PO 40 mg BID ALENA Administration Glipizide 5 mg 03/16/25 08:00 03/16/25 16:11 Glipizide 5 Mg Tablet PO 5 mg BIDWM ALENA Administration Glucagon 1 mg 03/15/25 21:11 Glucagon For Inj 1 Mg Vial IM PRN PRN Hypoglycemia Protocol Glucose 15 gm 03/15/25 21:11 Glucose Oral Gel 15 Gm Of Glucse In 37.5 Gm Tube PO PRN PRN Hypoglycemia Protocol Hydralazine HCl 50 mg 03/15/25 21:10 03/16/25 16:11 Hydralazine Hcl 25 Mg Tablet PO 50 mg BID ALENA Administration Hydralazine HCl 10 mg 03/16/25 15:34 Hydralazine Hcl 20 Mg/Ml Vial IV PUSH Q8H PRN systolic > 180 Dextrose 1,000 mls @ 100 mls/hr 03/15/25 21:11 Dextrose 5% 1,000 Ml IVPB PRN PRN Hypoglycemia Protocol Ceftriaxone Sodium 1 gm/ 50 mls @ 100 mls/hr 03/16/25 03:00 03/17/25 03:05 Sodium Chloride IVPB Infused Q24H ALENA Infusion Albumin Human 50 mls @ 999 mls/hr 03/16/25 06:26 Albutein IVPB 04/15/25 06:25 Q10M PRN HYPOTENSION Insulin Aspart 2 - 5 units 03/16/25 08:00 03/16/25 17:07 Insulin Aspart (*Bkc) 100 Units/Ml SUB-Q Not Given TIDWM ALENA Protocol Loratadine 10 mg 03/16/25 09:00 03/16/25 12:44 Loratadine 10 Mg Tablet PO Not Given Q48H ALENA Mupirocin 1 applic 03/16/25 09:00 03/16/25 20:49 Mupirocin 2% Oint 22 Gm Tube EACH NARE 03/20/25 21:01 1 applic Q12HR ALENA Administration Mupirocin 1 applic 03/16/25 09:00 03/16/25 16:10 Mupirocin 2% Oint 22 Gm Tube TOPICAL 1 applic TID ALENA Administration Rosuvastatin Calcium 10 mg 03/16/25 09:00 03/16/25 12:45 Rosuvastatin 10 Mg Tablet PO Not Given DAILY ALENA Vancomycin HCl 1 each 03/16/25 03:14 Vancomycin For Hemodialysis IVPB PRN PRN Vancomycin Protocol Vitamin D 50 mcg 03/16/25 09:00 03/16/25 16:10 Cholecalciferol (Vitamin D3) 25 Mcg (1,000 Units) Tablet PO 50 mcg BID ALENA Administration Labs Labs: Laboratory Results - last 24 hr 03/16/25 03/16/25 03/16/25 13:43 15:18 16:55 Creatinine Estim Creat Clear Calc Estimated GFR POC Capillary Glucose 159 H 121 H Random Vancomycin 12.9 03/16/25 03/17/25 03/17/25 20:28 06:10 08:10 Creatinine 3.78 H Estim Creat Clear Calc 15 Estimated GFR 16 L POC Capillary Glucose 136 H 79 Random Vancomycin Quality VTE Prophylaxis VTE prophylaxis: pharmacologic ordered
--- NOTE | 2025-03-17 09:30 | P.PNNP_ITS ---
Progress Note: A&P Assessment and Plan (1) End-stage renal disease: Code(s): N18.6 - End stage renal disease Status: Chronic Assessment and Plan: * HD yesterday * plan HD tomorrow (given planned surgery today -- see #3) * resume M/W/F dialysis schedule next week * follow electrolytes, volume status, and clearance (2) Generalized weakness: Code(s): R53.1 - Weakness Status: Acute Assessment and Plan: * in association with gain instability * also with concerns patient may not be able to care for himself * care coordination assiting with possible placement * PT/OT as tolerated (3) Penile lesion: Code(s): N48.9 - Disorder of penis, unspecified Status: Acute Assessment and Plan: * noted on penile meatus * previously seen by Urology on 03/06 ER visit * wound culture at that time with MRSA and Serratia * possibly complicated by UTI * on antibiotics * Urology recommendations noted * noted plan for operative intervention later today (4) Anemia: Code(s): D64.9 - Anemia, unspecified Status: Acute Assessment and Plan: * partly due to ESRD * some worsening due to recent infections (?) * Epogen with HD * follow trend of H/H (5) Paroxysmal atrial fibrillation: Code(s): I48.0 - Paroxysmal atrial fibrillation Status: Chronic Assessment and Plan: * rate control strategy * on anticoagulation (6) Chronic combined systolic and diastolic CHF (congestive heart failure): Code(s): I50.42 - Chronic combined systolic (congestive) and diastolic (congestive) heart failure Status: Chronic Assessment and Plan: * noted by previous testing * no evidence of exacerbation * fluid removal with dialysis to maintain euvolemia (7) Hypertension: Code(s): I10 - Essential (primary) hypertension Status: Chronic Assessment and Plan: * elevated on admission * reasonable control at this time * follow trend of hemodynamics (8) 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 L Subjective Date/time seen: 03/17/25 09:30 Interval history: Follow-up for end stage renal disease on hemodialysis. Tolerated dialysis treatment yesterday without any issue or problems; noted plans by Urology for operative intervention later this morning; no apparent distress noted when seen; no issues/events overnight or earlier this morning. Exam 2 Narrative: General: elderly but WD/WN male in NAD Heart: normal S1 and S2; no rub Lungs: clear to auscultation Abdomen: soft, nontender, nondistended, positive bowel sounds Extremities: no cyanosis or clubbing; no edema Skin: warm and dry Objective Data Vital Signs Vital Signs: Vital Signs Temp Pulse Resp BP Pulse Ox O2 Del Method 03/17/25 08:00 Room Air 03/17/25 06:00 97.5 F L 79 14 154/64 H 98 03/16/25 23:40 100 Room Air 03/16/25 21:42 97.4 F L 90 16 146/66 H 100 03/16/25 20:49 90 03/16/25 20:00 90 16 100 Room Air 03/16/25 15:24 98.7 F 79 16 146/79 H 100 03/16/25 13:53 85 03/16/25 13:17 98.4 F 86 16 182/90 H 98 03/16/25 13:07 83 176/76 H 03/16/25 13:00 82 184/84 H 03/16/25 12:45 82 185/79 H 03/16/25 12:30 81 171/72 H Intake/Output Intake/Output: Intake & Output 03/14/25 03/15/25 03/16/25 03/17/25 23:59 23:59 23:59 23:59 Intake Total 690 250 Output Total 1250 550 Balance -560 -300 Meds/Results Medications: Active Medications Generic Name Dose Route Start Last Admin Trade Name Freq PRN Reason Stop Dose Admin Apixaban 5 mg 03/16/25 09:00 03/17/25 10:06 Apixaban 5 Mg Tablet PO Not Given Q12HR ALENA Carvedilol 12.5 mg 03/15/25 21:20 03/17/25 09:27 Carvedilol 12.5 Mg Tablet PO 12.5 mg Q12HR ALENA Administration Clopidogrel Bisulfate 75 mg 03/16/25 09:00 03/17/25 10:06 Clopidogrel Bisulfate 75 Mg Tablet PO Not Given DAILY ALENA Dextrose 12.5 gm 03/15/25 21:11 Dextrose 50% 25 Gm/50 Ml Syringe IV PUSH PRN PRN Hypoglycemia Protocol Fentanyl Citrate 25 mcg 03/17/25 11:27 Fentanyl Citrate Inj (*Crx) 100 Mcg/2 Ml Vial IV PUSH Q2M PRN Pain Ferrous Sulfate 325 mg 03/16/25 09:00 03/17/25 10:06 Ferrous Sulfate 325 Mg Tablet BY MOUTH Not Given BID ALENA Furosemide 40 mg 03/16/25 09:00 03/17/25 10:06 Furosemide 40 Mg Tablet PO Not Given BID ALENA Glipizide 5 mg 03/16/25 08:00 03/17/25 10:05 Glipizide 5 Mg Tablet PO Not Given BIDWM ALENA Glucagon 1 mg 03/15/25 21:11 Glucagon For Inj 1 Mg Vial IM PRN PRN Hypoglycemia Protocol Glucose 15 gm 03/15/25 21:11 Glucose Oral Gel 15 Gm Of Glucse In 37.5 Gm Tube PO PRN PRN Hypoglycemia Protocol Hydralazine HCl 50 mg 03/15/25 21:10 03/17/25 10:06 Hydralazine Hcl 25 Mg Tablet PO Not Given BID ALENA Hydralazine HCl 10 mg 03/16/25 15:34 Hydralazine Hcl 20 Mg/Ml Vial IV PUSH Q8H PRN systolic > 180 Dextrose 1,000 mls @ 100 mls/hr 03/15/25 21:11 Dextrose 5% 1,000 Ml IVPB PRN PRN Hypoglycemia Protocol Ceftriaxone Sodium 1 gm/ 50 mls @ 100 mls/hr 03/16/25 03:00 03/17/25 03:05 Sodium Chloride IVPB Infused Q24H ALENA Infusion Albumin Human 50 mls @ 999 mls/hr 03/16/25 06:26 Albutein IVPB 04/15/25 06:25 Q10M PRN HYPOTENSION Sodium Chloride 500 mls @ 30 mls/hr 03/17/25 11:30 03/17/25 11:33 Normal Saline Iv IV CONT 30 mls/hr .[id number] ALENA Administration Sodium Chloride 500 mls @ 30 mls/hr 03/17/25 11:30 Normal Saline Iv IV CONT .[id number] ALENA Insulin Aspart 2 - 5 units 03/16/25 08:00 03/17/25 09:34 Insulin Aspart (*Bkc) 100 Units/Ml SUB-Q Not Given TIDWM [facility] Protocol Loratadine 10 mg 03/16/25 09:00 03/16/25 12:44 Loratadine 10 Mg Tablet PO Not Given Q48H [facility] Mupirocin 1 applic 03/16/25 09:00 03/17/25 10:06 Mupirocin 2% Oint 22 Gm Tube EACH NARE 03/20/25 21:01 Not Given Q12HR [facility] Mupirocin 1 applic 03/16/25 09:00 03/17/25 10:06 Mupirocin 2% Oint 22 Gm Tube TOPICAL Not Given TID [facility] Ondansetron HCl 4 mg 03/17/25 11:27 Ondansetron Inj 4 Mg/2 Ml Vial IV PUSH ONCE PRN Nausea Rosuvastatin Calcium 10 mg 03/16/25 09:00 03/17/25 10:06 Rosuvastatin 10 Mg Tablet PO Not Given DAILY [facility] Vancomycin HCl 1 each 03/16/25 03:14 Vancomycin For Hemodialysis IVPB PRN PRN Vancomycin Protocol Vitamin D 50 mcg 03/16/25 09:00 03/17/25 10:06 Cholecalciferol (Vitamin D3) 25 Mcg (1,000 Units) Tablet PO Not Given BID [facility] Labs Labs: Laboratory Tests 03/16/25 05:22 03/17/25 06:10 Microbiology 03/15/25 14:16 Urine [place] - Preliminary
--- NOTE | 2025-03-17 11:25 | SUR.PREOP ---
1125- Notified patient and son Eduar procedure start time will be delayed. Patient and son verbalized understanding and denying needs at this time.
--- NOTE | 2025-03-17 11:25 | WPDANESEPPF ---
Anes - Initial Pre Proc Eval Procedure: Operation Date: 03/17/25 12:00 Proposed Procedures p Penile Debridement And Biopsy - Freddie Tom MD Date/Time: 03/17/25 11:25 Surgeon: Mt Patterson MD Pre Op Diagnosis: Failure to Thrive Patient Data Age: 79 Gender: M Height: 1.73 m Weight: 78.2 kg Last Vital Signs Temp 36.4 C L 03/17/25 06:00 Pulse 94 03/17/25 09:27 Resp 14 03/17/25 06:00 BP 154/64 H 03/17/25 06:00 Pulse Ox 98 03/17/25 06:00 O2 Del Method Room Air 03/17/25 09:52 Allergies Allergy/AdvReac Type Severity Reaction Status Date / Time Sulfa (Sulfonamide Allergy Unknown Rash,Unknow Verified 03/15/25 18:46 Antibiotics) n,Unknown,R isaiah sitagliptin (From [facility]) Allergy Rash Verified 03/15/25 18:46 Tea Allergy Nausea and Uncoded 03/02/25 08:47 Vomiting Home Medications ?Medication ?Instructions ?Recorded ?Confirmed ?Type ferrous sulfate 325 mg (65 mg 325 mg PO BID 01/10/22 03/15/25 History iron) tablet (Iron (ferrous sulfate)) apixaban 5 mg tablet (Eliquis) 5 mg PO BID 01/11/22 03/15/25 History blood-glucose meter (OneTouch #1 ea 01/22/22 03/15/25 Rx Ultra2 Meter kit) clopidogrel 75 mg tablet 75 mg PO DAILY 12/10/23 03/15/25 History loratadine 10 mg capsule 10 mg PO EVERY OTHER DAY 01/06/24 03/15/25 History rosuvastatin 10 mg tablet 10 mg PO DAILY 01/06/24 03/15/25 History cholecalciferol (vitamin D3) 50 50 mcg PO BID #30 tabs 01/17/24 03/15/25 Rx mcg (2,000 unit) tablet coenzyme [id number] 100 mg-100 1 cap PO DAILY 01/21/24 03/15/25 History unit capsule carvedilol 12.5 mg tablet See Rx Instructions .Route 08/29/24 03/15/25 Rx .COMPLEX #180 tabs blood sugar diagnostic (Accu-Chek #100 ea 10/03/24 03/15/25 Rx Guide test strips) blood-glucose meter (Accu-Chek #1 ea 10/03/24 03/15/25 Rx Guide Me Glucose Meter) furosemide 40 mg tablet See Rx Instructions .Route 12/23/24 03/15/25 Rx .COMPLEX #180 tabs lancets 30 gauge (OneTouch Delica #100 ea 12/26/24 03/15/25 Rx Plus Lancet) glipizide 5 mg tablet See Rx Instructions .Route 01/12/25 03/15/25 Rx .COMPLEX #180 tabs vitamin B complex and vitamin C See Rx Instructions .Route 01/12/25 03/15/25 Rx no.20-folic acid 1 mg capsule .COMPLEX #90 caps (Triphrocaps) doxycycline hyclate 100 mg tablet 100 mg PO BID 7 days #14 tabs 03/13/25 03/15/25 Rx hydralazine 25 mg tablet 50 mg PO BID 03/15/25 03/15/25 History Laboratory Tests 03/16/25 03/16/25 03/16/25 13:43 15:18 16:55 Creatinine Estim Creat Clear Calc Estimated GFR POC Capillary Glucose 159 H mg/dl 121 H mg/dl (65-105) (65-105) Random Vancomycin 12.9 ug/mL (10-20) 03/16/25 03/17/25 03/17/25 20:28 06:10 08:10 Creatinine 3.78 H mg/dL (0.7-1.3) Estim Creat Clear Calc 15 ml/min Estimated GFR 16 L (59 - ) POC Capillary Glucose 136 H mg/dl 79 mg/dl (65-105) (65-105) Random Vancomycin 03/17/25 10:51 Creatinine Estim Creat Clear Calc Estimated GFR POC Capillary Glucose 77 mg/dl (65-105) Random Vancomycin Patient hx anesthesia problems: none Family hx anesthesia problems: none Results Review: All pre-operative results and documents have been reviewed as part of the pre-operative evaluation. 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 Abnormal thumb on the left hand Anemia of chronic disease Allergic rhinitis Chronic sinusitis Eczema Ulcer Hyperlipidemia Surgical History Surgical History Status post creation of arteriovenous fistula Left upper arm Status post cataract extraction of both eyes with insertion of intraocular lens Family History Family History Father Lung cancer Daughter Chronic lung disease Morbid obesity Grandparent Asthma Mother Hypertension Other Diabetes mellitus Heart disease Malignant neoplasm of prostate Social History Social History Social History: status: Full code Surrogate decision maker: Smoking status: Never smoker Smokeless tobacco user: chewing tobacco Second hand tobacco smoke exposure: No Alcohol intake: former Alcohol use details: He reports that he drank heavily until 1975 when he found Jovani. Substance use: never Substance use type: does not use Do You Feel Safe in your Home?: Yes Lack of Transportation: No Lack of Food: Never True Current Housing: I Have Housing Concerned About Future Housing: No Difficulty Paying Gas/Electric Bills: No Difficulty Paying for Meds: No Currently Unemployed: No Education: Decline to Answer Difficulty w/ Childcare or Family Care: No Living arrangements: with family Additional living arrangements comments: He and his have been since 1975. He has total of 6 children 5 of which are still living and her relatively healthy. He had 1 daughter who of morbid obesity and chronic lung disease. 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 Gender identity (if verbalized by the patient): Male Sexual Orientation (if Verbalized by the Patient): Straight or Heterosexual Spiritual care concerns: No Agree to blood products: Yes Anes - Eval Final PreProcedure Day of Procedure 03/17/25 11:25 Patient weight: overweight Heart: regular rate and rhythm Lungs: clear to auscultation Airway: Mallampati scale class II Neurological: alert and oriented Last oral intake: >/= 8 hours ASA classification: IV Emergent: no Anesthetic plan: proceed Anesthesia type and monitoring: general LMA and standard monitoring Results Review: All pre-operative results and documents have been reviewed as part of the pre-operative evaluation. Informed Consent: The patient's anesthetic plan and its attendant risks and benefits were discussed with the patient/family/POA. Questions were solicited and answers provided to the satisfaction of the patient/family/POA.
[2025-03-17] MEDS: SODIUM CHLORIDE 0.9% IV 500 ML 30 ML IV CONT (11:33)
--- NOTE | 2025-03-17 12:28 | S_PTH ---
PATIENT: Abel Pike LOC: [id number] U#:[id number] AGE/SX: 79/M ROOM: 332 RE03/17/[address]: Opal White PA-C : 1945 BED: 01 DIS: 03/19/2025 SPEC #: [id number] RECD: 03/17/25 12:58 STATUS: PAULA REOsito #: [id number] MAGDIEL: 03/17/25 12:[address]: Freddie Tom DEPT: [facility] Surgical RECD BY: Sena Escalona ENTERED: 03/17/25 13:00 SP TYPE: Surgical OTHR DR: MD Leonard Bansal MD Mafeth A. Lim, DO Opal White PA-C Tissues: A - Skin Procedures: Hematoxylin and Eosin Stain Gross and Microscopic Level 4
[2025-03-17] MEDS: fentaNYL CITRATE INJ (*CRX) 100 MCG/2 ML VIAL 25 MCG IV PUSH ×4 (13:15→13:23)
--- NOTE | 2025-03-17 13:16 | PC.NURSE ---
labs not drawn patient off the floor
--- NOTE | 2025-03-17 13:28 | W.PM.PROC2 ---
Procedure Note - Detailed Date of Procedure 03/17/25 Pre-op Diagnosis 1. Necrosis of portion of glans penis 2. History of gross hematuria Post-op Diagnosis Same Procedure Performed 1. Flexible cystoscopy 2. Debridement and biopsy glans penis Surgeon Freddie Tom MD Anesthesia General Description of Procedure patient is brought the operative suite was prepped draped in routine sterile fashion while in supine position after the uneventful induction of a general anesthetic. Cystoscopy was undertaken the 16 F flexible cystoscope. There was no urethral stricture in the necrosis of the urethra itself. He has been minimal prostatic hyperplasia with lateral lobe enlargement and no median lobe. Bladder shows some mild trabeculation without cellular diverticular formation. There is no intravesical foreign body or neoplasm. He does have a small clot in the dependent portion. Then turned attention to debridement of the tip of his glans penis. This is debrided back to viable tissue. Some viable tissue was sent for pathology evaluation. In the edge of the cut tissue was cauterized and an 18 F Sheriff was replaced to drainage. Patient tolerated his procedure well was taken recovery room in good condition
[2025-03-17 14:29] LABS: Hematocrit 30.1 % (42.0-52.0); Hemoglobin 9.1 g/dL (14.0-18.0); Mean Corpuscular HGB Conc 30.2 g/dl (32-36); Mean Corpuscular Hemoglobin 27.9 pg (26-34); Mean Corpuscular Volume 92.3 fl (80-100); Platelet Count Result 247 k/mm3 (150-375); Red Blood Count 3.26 M/mm3 (4.6-6.20); White Blood Count 9.9 K/mm3 (4.5-10.0)
[2025-03-17 14:48] LABS: Alanine Aminotransferase 12 U/L (6-50); Albumin Level 3.0 g/dL (3.5-5.1); Alkaline Phosphatase 66 U/L (38-126); Anion Gap 8 mmol/L (4-12); Aspartate Amino Transferase 28 U/L (17-59); Bilirubin,Total 0.5 mg/dL (0.2-1.3); Blood Urea Nitrogen 32 mg/dL (9-20); Calcium 8.9 mg/dL (8.4-10.2); Carbon Dioxide 29 mmol/L (22-30); Chloride 101 mmol/L (98-107); Estimated CRCL calculation 14 ml/min; Estimated Glomerular Filt Rate 15; Glucose 67 mg/dL (65-110); Potassium 4.6 mmol/L (3.4-5.0); Sodium 138 mmol/L (137-145); Total Protein 6.2 g/dL (6.3-8.2)
[2025-03-17] MEDS: FERROUS SULFATE 325 MG TABLET BY MOUTH (16:40)
[2025-03-17] MEDS: CHOLECALCIFEROL (VITAMIN D3) 25 MCG (1,000 UNITS) TABLET 50 MCG PO (16:40)
[2025-03-17] MEDS: FUROSEMIDE 40 MG TABLET PO (16:40)
[2025-03-17] MEDS: APIXABAN 5 MG TABLET PO (20:36)
[2025-03-17] MEDS: MUPIROCIN 2% OINT 22 GM TUBE 1 APPLIC EACH NARE (20:37)
[2025-03-18] VITALS (23 sets, daily range): BP systolic 107–173; BP diastolic 59–80; PULSE 78–91; RESP 18–20; TEMP 36.3–37.3; O2SAT 97–99
[2025-03-18] MEDS: cefTRIAXone 1 GM in SODIUM CHLORIDE 0.9% IV 50 ML 100 ML IVPB (02:59)
[2025-03-18 05:35] LABS: Hematocrit 28.5 % (42.0-52.0); Hemoglobin 8.5 g/dL (14.0-18.0); Mean Corpuscular HGB Conc 29.8 g/dl (32-36); Mean Corpuscular Hemoglobin 27.2 pg (26-34); Mean Corpuscular Volume 91.1 fl (80-100); Platelet Count Result 231 k/mm3 (150-375); Red Blood Count 3.13 M/mm3 (4.6-6.20); White Blood Count 10.5 K/mm3 (4.5-10.0)
[2025-03-18 05:55] LABS: Alanine Aminotransferase 12 U/L (6-50); Albumin Level 3.1 g/dL (3.5-5.1); Alkaline Phosphatase 81 U/L (38-126); Anion Gap 6 mmol/L (4-12); Aspartate Amino Transferase 19 U/L (17-59); Bilirubin,Total 0.3 mg/dL (0.2-1.3); Blood Urea Nitrogen 38 mg/dL (9-20); Calcium 8.9 mg/dL (8.4-10.2); Carbon Dioxide 31 mmol/L (22-30); Chloride 100 mmol/L (98-107); Estimated CRCL calculation 11 ml/min; Estimated Glomerular Filt Rate 11; Glucose 157 mg/dL (65-110); Potassium 4.3 mmol/L (3.4-5.0); Sodium 137 mmol/L (137-145); Total Protein 6.4 g/dL (6.3-8.2)
[2025-03-18] MEDS: APIXABAN 5 MG TABLET PO ×2 (07:56→20:37)
[2025-03-18] MEDS: ROSUVASTATIN 10 MG TABLET PO (07:56)
[2025-03-18] MEDS: CHOLECALCIFEROL (VITAMIN D3) 25 MCG (1,000 UNITS) TABLET 50 MCG PO ×2 (07:56→17:19)
[2025-03-18] MEDS: LORATADINE 10 MG TABLET PO (07:56)
[2025-03-18] MEDS: FERROUS SULFATE 325 MG TABLET BY MOUTH ×2 (07:56→17:19)
[2025-03-18] MEDS: CLOPIDOGREL BISULFATE 75 MG TABLET PO (07:56)
[2025-03-18] MEDS: FUROSEMIDE 40 MG TABLET PO ×2 (07:57→17:19)
[2025-03-18] MEDS: MUPIROCIN 2% OINT 22 GM TUBE 1 APPLIC EACH NARE ×2 (07:59→22:00)
[2025-03-18] MEDS: LIDOCAINE/PRILOCAINE CREAM 2.5-2.5% TUBE 1 EACH TOPICAL ×2 (08:15→08:16)
--- NOTE | 2025-03-18 08:56 | PM.IMPN ---
Progress Note: A&P Assessment and Plan (1) Gait abnormality: Code(s): R26.9 - Unspecified abnormalities of gait and mobility Status: Acute Assessment and Plan: Patient states he uses a cane for short distances and otherwise uses a wheelchair for ambulation. Care coordination has been consulted persistence with placement. Will consult PT and OT for discharge plan and recommendations. Recommending home health vs [facility] care [facility] (2) Abnormal urinalysis: Code(s): R82.90 - Unspecified abnormal findings in urine Status: Acute Assessment and Plan: Abnormal urinalysis in the setting of chronic indwelling Negron catheter. Catheter was not exchanged in the ER and given ulceration and wound around the catheter site will hold off on changing the catheter until patient is evaluated by Urology. - UA: 3+ protein, trace glucose, 1+ blood. 1+ leukocytes, rbc 21-50, 6-10 WBC, yeast present, no bacteria noted - UC obtained on 03/15: melinda albicans - previous micro reviewed 02/26/2025: serratia marescens - started on Rocephin on 03/16, remains on treatment for penile lesion Likely melinda is colonization related to chronic negron and do not feel as though treatment is required at this time as patient is afebrile with stable WBC. (3) Penile lesion: Code(s): N48.9 - Disorder of penis, unspecified Status: Acute Assessment and Plan: Necrotic appearing wound to the penile meatus previously seen on 03/06 when urology evaluated, plan at that time was to downsize catheter and continue abx with outpatient follow up Penile culture from 03/06: MRSA and serratia marcescens Contact precautions Started on Rocephin and vancomycin Monitor vital signs, I&Os Monitor serum electrolytes, CBC, cultures, WBC and temp curve Urology consulted, appreciate recommendations s/p flexible cystoscopy and debridement and biopsy of glans penis pathology pending continue analgesics: tylenol and norco as needed Negron was replaced in the OR (4) End-stage renal disease on hemodialysis: Code(s): N18.6 - End stage renal disease; Z99.2 - Dependence on renal dialysis Status: Chronic Assessment and Plan: Patient has been on dialysis since 2022 Hemodialysis Thursday and was unable to go on 03/15 since his was in the ER being evaluated. Nephrology has been consulted for dialysis management (5) Anemia, chronic disease: Code(s): D63.8 - Anemia in other chronic diseases classified elsewhere Status: Chronic Assessment and Plan: Patient also has mildly decreased hemoglobin compared to baseline likely due to his anemia in setting of chronic kidney disease. 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: Code(s): E11.22 - Type 2 diabetes mellitus with diabetic chronic kidney disease; N18.6 - End stage renal disease Status: Chronic Assessment and Plan: - hypoglycemia protocol - POC blood glucose ACHS - home medication - glipizide 5 mg BID - correct regimen ordered - low dose TIDWM (7) Dependence on nocturnal oxygen therapy: Code(s): Z99.81 - Dependence on supplemental oxygen Status: Acute (8) Atrial fibrillation: Code(s): I48.91 - Unspecified atrial fibrillation Status: Acute Assessment and Plan: Chronic Continue eliquis 5 mg BID and carvedilol 12.5 mg (9) Chronic systolic (congestive) heart failure: Code(s): I50.22 - Chronic systolic (congestive) heart failure Status: Chronic Assessment and Plan: Chronic, does not appear in acute exacerbation Time Spent With Patient Time with patient: 25 - 35 minutes Subjective Date/time seen: 03/18/25 08:56 Interval history: 79-year-old male with a past medical history type 2 diabetes mellitus with peripheral neuropathy, retinopathy, chronic indwelling Negron catheter and end-stage renal disease on hemodialysis who presented to the ER under the direction of his primary care physician as he is unable to care for himself at home. Patient is pleasant lying comfortably in bed. He remains alert and oriented x3 at time of assessment. He is endorsing increased penile discomfort after having the dressing changed. He has no other complaints chest pain, shortness a breath, palpitations, nausea / vomiting, and abdominal pain. Review of Systems Review of Systems: All systems reviewed & are unremarkable except as noted in HPI and below Exam Narrative: AF HR 82 RR 20 Spo2 98 BP 137/63 General: male in no acute respiratory distress who is nontoxic appearing, lying semi recumbent in bed HEENT: Normocephalic. Atraumatic. Extraocular movement intact. Sclera clear and anicteric. No facial asymmetry. Chest: Lungs are clear to auscultation bilaterally. No wheezes or crackles. CV: Heart was regular rate and rhythm. Abd: Abdomen was soft. Nontender. Nondistended. Positive bowel sounds. : dressing clean/dry/intact. Ext: No clubbing, cyanosis, or edema. DP pulses bilaterally. Neuro: Patient is alert and oriented x3. Speech is clear. Objective Data Vital Signs Vital Signs: Vital Signs - 24 hr 03/17/25 09:27 03/17/25 09:40 03/17/25 09:52 Temperature Pulse Rate 94 Respiratory Rate Blood Pressure Pulse Oximetry Oxygen Delivery Room Air Room Air Oxygen Flow Rate 03/17/25 12:45 03/17/25 13:00 03/17/25 13:15 Temperature 97.1 F L Pulse Rate 78 77 88 Respiratory Rate 12 12 12 Blood Pressure 113/49 L 118/52 L 135/67 Pulse Oximetry 100 97 95 Oxygen Delivery Simple Face Mask Room Air Room Air Oxygen Flow Rate 10 03/17/25 13:30 03/17/25 13:38 03/17/25 14:34 Temperature 98.1 F Pulse Rate 78 81 84 Respiratory Rate 12 12 16 Blood Pressure 149/69 H 151/71 H 122/61 Pulse Oximetry 100 100 100 Oxygen Delivery Nasal Cannula Nasal Cannula Oxygen Flow Rate 2 2 03/17/25 20:35 03/17/25 20:36 03/17/25 22:00 Temperature 98.6 F Pulse Rate 86 81 Respiratory Rate 18 Blood Pressure 122/48 L Pulse Oximetry 99 99 Oxygen Delivery Nasal Cannula Oxygen Flow Rate 2 03/18/25 07:56 Temperature Pulse Rate 89 Respiratory Rate Blood Pressure Pulse Oximetry Oxygen Delivery Oxygen Flow Rate Intake/Output Intake/Output: Intake & Output 03/15/25 03/16/25 03/17/25 03/18/25 23:59 23:59 23:59 23:59 Intake Total 690 820 350 Output Total 1250 550 450 Balance -560 270 -100 Meds/Results Medications: Active Medications Generic Name Dose Route Start Last Admin Trade Name Freq PRN Reason Stop Dose Admin Apixaban 5 mg 03/16/25 09:00 03/18/25 07:56 Apixaban 5 Mg Tablet PO 5 mg Q12HR ALENA Administration Carvedilol 12.5 mg 03/15/25 21:20 03/18/25 07:56 Carvedilol 12.5 Mg Tablet PO 12.5 mg Q12HR ALENA Administration Clopidogrel Bisulfate 75 mg 03/16/25 09:00 03/18/25 07:56 Clopidogrel Bisulfate 75 Mg Tablet PO 75 mg DAILY ALENA Administration Dextrose 12.5 gm 03/15/25 21:11 Dextrose 50% 25 Gm/50 Ml Syringe IV PUSH PRN PRN Hypoglycemia Protocol Epoetin Noe-epbx 10,000 units 03/18/25 18:38 Epoetin Noe-Epbx 10,000 Units/Ml Vial IV PUSH 03/18/25 18:39 ONCE ONE Fentanyl Citrate 25 mcg 03/17/25 11:27 03/17/25 13:23 Fentanyl Citrate Inj (*Crx) 100 Mcg/2 Ml Vial IV PUSH 25 mcg Q2M PRN Administration Pain Ferrous Sulfate 325 mg 03/16/25 09:00 03/18/25 07:56 Ferrous Sulfate 325 Mg Tablet BY MOUTH 325 mg BID ALENA Administration Furosemide 40 mg 03/16/25 09:00 03/18/25 07:57 Furosemide 40 Mg Tablet PO 40 mg BID ALENA Administration Glipizide 5 mg 03/16/25 08:00 03/18/25 07:56 Glipizide 5 Mg Tablet PO 5 mg BIDWM ALENA Administration Glucagon 1 mg 03/15/25 21:11 Glucagon For Inj 1 Mg Vial IM PRN PRN Hypoglycemia Protocol Glucose 15 gm 03/15/25 21:11 Glucose Oral Gel 15 Gm Of Glucse In 37.5 Gm Tube PO PRN PRN Hypoglycemia Protocol Hydralazine HCl 50 mg 03/15/25 21:10 03/18/25 07:56 Hydralazine Hcl 25 Mg Tablet PO 50 mg BID ALENA Administration Hydralazine HCl 10 mg 03/16/25 15:34 Hydralazine Hcl 20 Mg/Ml Vial IV PUSH Q8H PRN systolic > 180 Dextrose 1,000 mls @ 100 mls/hr 03/15/25 21:11 Dextrose 5% 1,000 Ml IVPB PRN PRN Hypoglycemia Protocol Ceftriaxone Sodium 1 gm/ 50 mls @ 100 mls/hr 03/16/25 03:00 03/18/25 02:59 Sodium Chloride IVPB 100 mls/hr Q24H ALENA Administration Albumin Human 50 mls @ 999 mls/hr 03/16/25 06:26 Albutein IVPB 04/15/25 06:25 Q10M PRN HYPOTENSION Sodium Chloride 500 mls @ 30 mls/hr 03/17/25 11:30 03/17/25 13:37 Normal Saline Iv IV CONT Infused .[id number] ALENA Infusion Sodium Chloride 500 mls @ 30 mls/hr 03/17/25 11:30 Normal Saline Iv IV CONT .[id number] ALENA Insulin Aspart 2 - 5 units 03/16/25 08:00 03/17/25 18:28 Insulin Aspart (*Bkc) 100 Units/Ml SUB-Q Not Given TIDWM ALENA Protocol Lidocaine/Prilocaine 1 each 03/18/25 06:42 03/18/25 08:16 Lidocaine/Prilocaine Cream 2.5-2.5% Tube TOPICAL 1 each WITH DIALYSIS PRN Administration for dialysis Protocol Loratadine 10 mg 03/16/25 09:00 03/18/25 07:56 Loratadine 10 Mg Tablet PO 10 mg Q48H ALENA Administration Mupirocin 1 applic 03/16/25 09:00 03/18/25 07:59 Mupirocin 2% Oint 22 Gm Tube EACH NARE 03/20/25 21:01 1 applic Q12HR ALENA Administration Mupirocin 1 applic 03/16/25 09:00 03/17/25 18:28 Mupirocin 2% Oint 22 Gm Tube TOPICAL Not Given TID ALENA Ondansetron HCl 4 mg 03/17/25 11:27 Ondansetron Inj 4 Mg/2 Ml Vial IV PUSH ONCE PRN Nausea Rosuvastatin Calcium 10 mg 03/16/25 09:00 03/18/25 07:56 Rosuvastatin 10 Mg Tablet PO 10 mg DAILY ALENA Administration Vancomycin HCl 1 each 03/16/25 03:14 Vancomycin For Hemodialysis IVPB PRN PRN Vancomycin Protocol Vitamin D 50 mcg 03/16/25 09:00 03/18/25 07:56 Cholecalciferol (Vitamin D3) 25 Mcg (1,000 Units) Tablet PO 50 mcg BID ALENA Administration Labs Labs: Laboratory Results - last 24 hr 03/17/25 03/17/25 03/17/25 10:51 12:59 14:23 WBC 9.9 RBC 3.26 L Hgb 9.1 L Hct 30.1 L MCV 92.3 MCH 27.9 MCHC 30.2 L RDW 16.7 H Plt Count 247 MPV 9.0 Sodium 138 Potassium 4.6 Chloride 101 Carbon Dioxide 29 Anion Gap 8 BUN 32 H D Creatinine 3.93 H Estim Creat Clear Calc 14 Estimated GFR 15 L Glucose 67 POC Capillary Glucose 77 71 Calcium 8.9 Total Bilirubin 0.5 AST 28 ALT 12 Alkaline Phosphatase 66 Total Protein 6.2 L Albumin 3.0 L Random Vancomycin 03/17/25 03/17/25 03/17/25 14:41 17:07 20:13 WBC RBC Hgb Hct MCV MCH MCHC RDW Plt Count MPV Sodium Potassium Chloride Carbon Dioxide Anion Gap BUN Creatinine Estim Creat Clear Calc Estimated GFR Glucose POC Capillary Glucose 80 160 H 198 H Calcium Total Bilirubin AST ALT Alkaline Phosphatase Total Protein Albumin Random Vancomycin 03/18/25 03/18/25 05:26 07:50 WBC 10.5 H RBC 3.13 L Hgb 8.5 L Hct 28.5 L MCV 91.1 MCH 27.2 MCHC 29.8 L RDW 16.9 H Plt Count 231 MPV 8.7 Sodium 137 Potassium 4.3 Chloride 100 Carbon Dioxide 31 H Anion Gap 6 BUN 38 H Creatinine 5.11 H Estim Creat Clear Calc 11 Estimated GFR 11 L Glucose 157 H POC Capillary Glucose 180 H Calcium 8.9 Total Bilirubin 0.3 AST 19 ALT 12 Alkaline Phosphatase 81 Total Protein 6.4 Albumin 3.1 L Random Vancomycin 14.4 Quality VTE Prophylaxis VTE prophylaxis: pharmacologic ordered
--- NOTE | 2025-03-18 10:08 | P.PNNP_ITS ---
Progress Note: A&P Assessment and Plan (1) End-stage renal disease: Code(s): N18.6 - End stage renal disease Status: Chronic Assessment and Plan: * HD today * resume M/W/F dialysis schedule next week * follow electrolytes, volume status, and clearance (2) Generalized weakness: Code(s): R53.1 - Weakness Status: Acute Assessment and Plan: * in association with gait instability * also with concerns patient may not be able to take care for himself at home * care coordination assisting with possible placement * PT/OT as tolerated (3) Penile lesion: Code(s): N48.9 - Disorder of penis, unspecified Status: Acute Assessment and Plan: * noted on penile meatus * previously seen by Urology on 03/06 ER visit * wound culture at that time with MRSA and Serratia * possibly complicated by UTI * on antibiotics * Urology following * s/p flexible cystoscopy and debridement of glans penis in OR (on 03/17) (4) Anemia: Code(s): D64.9 - Anemia, unspecified Status: Acute Assessment and Plan: * partly due to ESRD * some worsening due to recent infections (?) * Epogen with HD * follow trend of H/H (5) Paroxysmal atrial fibrillation: Code(s): I48.0 - Paroxysmal atrial fibrillation Status: Chronic Assessment and Plan: * rate control strategy * on anticoagulation (6) Chronic combined systolic and diastolic CHF (congestive heart failure): Code(s): I50.42 - Chronic combined systolic (congestive) and diastolic (congestive) heart failure Status: Chronic Assessment and Plan: * noted by previous testing * no evidence of exacerbation * fluid removal with dialysis to maintain euvolemia (7) Hypertension: Code(s): I10 - Essential (primary) hypertension Status: Chronic Assessment and Plan: * elevated on admission * reasonable control at this time * follow trend of hemodynamics (8) 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 L Subjective Date/time seen: 03/18/25 10:08 Interval history: Follow-up for end stage renal disease on hemodialysis. Tolerating dialysis treatment at the time of my visit (seen on HD at 10:00am); s/p debridement of glans penis in OR yesterday by Urology and tolerated this intervention without issue; no events overnight or earlier today. Exam 2 Narrative: General: elderly but WD/WN male in NAD Heart: normal S1 and S2; no rub Lungs: clear to auscultation Abdomen: soft, nontender, nondistended, positive bowel sounds Extremities: no cyanosis or clubbing; no edema Skin: warm and intact Objective Data Vital Signs Vital Signs: Vital Signs Temp Pulse Resp BP Pulse Ox O2 Del Method O2 Flow Rate 03/18/25 10:00 86 126/64 03/18/25 09:45 85 117/68 03/18/25 09:37 97 Room Air 03/18/25 09:30 79 113/61 03/18/25 09:15 78 119/59 L 03/18/25 09:00 82 127/68 03/18/25 08:50 88 146/75 H 03/18/25 08:11 98.4 F 82 20 152/80 H 97 03/18/25 08:00 Room Air 03/18/25 07:56 89 03/17/25 22:00 98.6 F 81 18 122/48 L 99 03/17/25 20:36 99 Nasal Cannula 2 03/17/25 20:35 86 Intake/Output Intake/Output: Intake & Output 03/15/25 03/16/25 03/17/25 03/18/25 23:59 23:59 23:59 23:59 Intake Total 690 820 710 Output Total 4382 542 3015 Balance -560 270 -740 Meds/Results Medications: Active Medications Generic Name Dose Route Start Last Admin Trade Name Freq PRN Reason Stop Dose Admin Acetaminophen 650 mg 03/18/25 15:16 Acetaminophen 325 Mg Tablet PO Q6H PRN Mild Pain (1-3) or Fever Hydrocodone Bitart/Acetaminophen 1 tab 03/18/25 15:16 Hydrocodone/Acetaminophen (*Crx) 5-325 Mg Tablet PO Q4H PRN Pain Rated 4-6 Apixaban 5 mg 03/16/25 09:00 03/18/25 07:56 Apixaban 5 Mg Tablet PO 5 mg Q12HR ALENA Administration Carvedilol 12.5 mg 03/15/25 21:20 03/18/25 07:56 Carvedilol 12.5 Mg Tablet PO 12.5 mg Q12HR ALENA Administration Clopidogrel Bisulfate 75 mg 03/16/25 09:00 03/18/25 07:56 Clopidogrel Bisulfate 75 Mg Tablet PO 75 mg DAILY ALENA Administration Dextrose 12.5 gm 03/15/25 21:11 Dextrose 50% 25 Gm/50 Ml Syringe IV PUSH PRN PRN Hypoglycemia Protocol Epoetin Noe-epbx 10,000 units 03/18/25 18:38 03/18/25 11:02 Epoetin Noe-Epbx 10,000 Units/Ml Vial IV PUSH 03/18/25 18:39 10,000 units ONCE ONE Administration Ferrous Sulfate 325 mg 03/16/25 09:00 03/18/25 07:56 Ferrous Sulfate 325 Mg Tablet BY MOUTH 325 mg BID ALENA Administration Furosemide 40 mg 03/16/25 09:00 03/18/25 07:57 Furosemide 40 Mg Tablet PO 40 mg BID ALENA Administration Glipizide 5 mg 03/16/25 08:00 03/18/25 07:56 Glipizide 5 Mg Tablet PO 5 mg BIDWM ALENA Administration Glucagon 1 mg 03/15/25 21:11 Glucagon For Inj 1 Mg Vial IM PRN PRN Hypoglycemia Protocol Glucose 15 gm 03/15/25 21:11 Glucose Oral Gel 15 Gm Of Glucse In 37.5 Gm Tube PO PRN PRN Hypoglycemia Protocol Hydralazine HCl 50 mg 03/15/25 21:10 03/18/25 07:56 Hydralazine Hcl 25 Mg Tablet PO 50 mg BID ALENA Administration Hydralazine HCl 10 mg 03/16/25 15:34 Hydralazine Hcl 20 Mg/Ml Vial IV PUSH Q8H PRN systolic > 180 Dextrose 1,000 mls @ 100 mls/hr 03/15/25 21:11 Dextrose 5% 1,000 Ml IVPB PRN PRN Hypoglycemia Protocol Ceftriaxone Sodium 1 gm/ 50 mls @ 100 mls/hr 03/16/25 03:00 03/18/25 02:59 Sodium Chloride IVPB 100 mls/hr Q24H ALENA Administration Albumin Human 50 mls @ 999 mls/hr 03/16/25 06:26 Albutein IVPB 04/15/25 06:25 Q10M PRN HYPOTENSION Sodium Chloride 500 mls @ 30 mls/hr 03/17/25 11:30 03/18/25 15:12 Normal Saline Iv IV CONT Not Given .[id number] ALENA Sodium Chloride 500 mls @ 30 mls/hr 03/17/25 11:30 03/18/25 15:13 Normal Saline Iv IV CONT Not Given .[id number] [facility] Insulin Aspart 2 - 5 units 03/16/25 08:00 03/18/25 13:04 Insulin Aspart (*Bkc) 100 Units/Ml SUB-Q Not Given TIDWM [facility] Protocol Lidocaine/Prilocaine 1 each 03/18/25 06:42 03/18/25 08:16 Lidocaine/Prilocaine Cream 2.5-2.5% Tube TOPICAL 1 each WITH DIALYSIS PRN Administration for dialysis Protocol Loratadine 10 mg 03/16/25 09:00 03/18/25 07:56 Loratadine 10 Mg Tablet PO 10 mg Q48H ALENA Administration Mupirocin 1 applic 03/16/25 09:00 03/18/25 07:59 Mupirocin 2% Oint 22 Gm Tube EACH NARE 03/20/25 21:01 1 applic Q12HR ALENA Administration Mupirocin 1 applic 03/16/25 09:00 03/18/25 15:11 Mupirocin 2% Oint 22 Gm Tube TOPICAL Not Given TID [facility] Ondansetron HCl 4 mg 03/17/25 11:27 Ondansetron Inj 4 Mg/2 Ml Vial IV PUSH ONCE PRN Nausea Rosuvastatin Calcium 10 mg 03/16/25 09:00 03/18/25 07:56 Rosuvastatin 10 Mg Tablet PO 10 mg DAILY ALEAN Administration Vancomycin HCl 1 each 03/16/25 03:14 Vancomycin For Hemodialysis IVPB PRN PRN Vancomycin Protocol Vitamin D 50 mcg 03/16/25 09:00 03/18/25 07:56 Cholecalciferol (Vitamin D3) 25 Mcg (1,000 Units) Tablet PO 50 mcg BID ALENA Administration Labs Labs: Laboratory Tests 03/18/25 05:26 03/18/25 05:26 Calcium 8.9 Total Bilirubin 0.3 AST 19 ALT 12 Alkaline Phosphatase 81 Total Protein 6.4 Albumin 3.1 L Random Vancomycin 14.4 Microbiology 03/15/25 14:16 Urine [place] - Final Martha albicans
[2025-03-18] MEDS: EPOETIN ALFA-EPBX 10,000 UNITS/ML VIAL 10000 UNITS IV PUSH (11:02)
[2025-03-18] MEDS: VANCOMYCIN HCL 1,000 MG in SODIUM CHLORIDE 0.9% IV 250 ML 175 MG IVPB (15:14)
[2025-03-19] MEDS: cefTRIAXone 1 GM in SODIUM CHLORIDE 0.9% IV 50 ML 100 ML IVPB (01:40)
--- NOTE | 2025-03-19 02:53 | PC.NURSE ---
Daylight Savings Time For Daylight Savings Time Ending in the Fall - Clocks are moved back. For Daylight Savings Time Beginning in the Spring - Clocks are moved ahead. For [facility], the time of change occurs at 0200 hrs. Time is taken from the gaming surveillance observer. This entry on the patient's chart recognizes the change in time reflected during documentation. Example: 2 entries for vital signs may be charted for 0200 hrs.
[2025-03-19 06:30] LABS: Hematocrit 28.8 % (42.0-52.0); Hemoglobin 8.6 g/dL (14.0-18.0); Mean Corpuscular HGB Conc 29.9 g/dl (32-36); Mean Corpuscular Hemoglobin 27.4 pg (26-34); Mean Corpuscular Volume 91.7 fl (80-100); Platelet Count Result 217 k/mm3 (150-375); Red Blood Count 3.14 M/mm3 (4.6-6.20); White Blood Count 9.8 K/mm3 (4.5-10.0)
[2025-03-19 06:31] VITALS: BP 153/77; PULSE 83; RESP 20; TEMP 36.7; O2SAT 99
[2025-03-19 07:08] LABS: Alanine Aminotransferase 12 U/L (6-50); Albumin Level 3.0 g/dL (3.5-5.1); Alkaline Phosphatase 78 U/L (38-126); Anion Gap 7 mmol/L (4-12); Aspartate Amino Transferase 29 U/L (17-59); Bilirubin,Total 0.2 mg/dL (0.2-1.3); Blood Urea Nitrogen 24 mg/dL (9-20); Calcium 8.9 mg/dL (8.4-10.2); Carbon Dioxide 27 mmol/L (22-30); Chloride 104 mmol/L (98-107); Estimated CRCL calculation 14 ml/min; Estimated Glomerular Filt Rate 15; Glucose 143 mg/dL (65-110); Potassium 3.9 mmol/L (3.4-5.0); Sodium 138 mmol/L (137-145); Total Protein 6.4 g/dL (6.3-8.2)
--- NOTE | 2025-03-19 08:43 | WPDUROPN2 ---
Progress Note: A&P Assessment and Plan (1) Penile lesion: Code(s): N48.9 - Disorder of penis, unspecified Status: Acute (2) Sheriff catheter in place: Code(s): Z97.8 - Presence of other specified devices Status: Acute Assessment and Plan: Discharged any time from my standpoint To go home with an indwelling catheter Also, please send him with the bottle of 0 form gauze he has it is bedside instruct him to change wrap around the tip of his penis daily Subjective Subjective Date/Time Seen: 03/19/25 08:43 Interval history: Comfortable, anxious for discharge Review of Systems Review of Systems: All systems reviewed & are unremarkable except as noted in HPI and below Exam Const: General: no acute distress Resp: Effort & Inspection: normal respiratory effort GI: Inspection: non-distended GI Palp: No abdominal tenderness and No Guarding due to palpation present (GI) Auscultation: normal bowel sounds : Penis: Yes other (Debridement site the glans penis is healing ) Objective Data Vital Signs Vital Signs: Vital Signs - 24 hr 03/18/25 09:45 03/18/25 10:00 03/18/25 10:15 Temperature Pulse Rate 85 86 87 Respiratory Rate Blood Pressure 117/68 126/64 131/69 Pulse Oximetry Oxygen Delivery 03/18/25 10:30 03/18/25 10:45 03/18/25 11:00 Temperature Pulse Rate 87 88 85 Respiratory Rate Blood Pressure 173/76 H 119/69 132/65 Pulse Oximetry Oxygen Delivery 03/18/25 11:15 03/18/25 11:30 03/18/25 11:45 Temperature Pulse Rate 80 84 90 Respiratory Rate Blood Pressure 122/64 127/65 127/62 Pulse Oximetry Oxygen Delivery 03/18/25 12:00 03/18/25 12:07 03/18/25 12:12 Temperature 98.1 F Pulse Rate 91 86 88 Respiratory Rate 20 Blood Pressure 107/69 114/59 L 133/64 Pulse Oximetry 99 Oxygen Delivery 03/18/25 15:04 03/18/25 20:35 03/18/25 20:37 Temperature 97.4 F L Pulse Rate 82 83 Respiratory Rate 20 Blood Pressure 137/63 Pulse Oximetry 98 Oxygen Delivery Room Air 03/18/25 21:23 03/19/25 06:31 Temperature 99.1 F 98.0 F Pulse Rate 83 83 Respiratory Rate 18 20 Blood Pressure 134/70 153/77 H Pulse Oximetry 97 99 Oxygen Delivery Intake/Output Intake/Output: Intake & Output 03/16/25 03/17/25 03/18/25 03/19/25 23:59 23:59 23:59 22:59 Intake Total 492 542 7000 50 Output Total 2614 972 5073 350 Balance -560 270 -440 -300 Meds/Results Medications: Active Medications Generic Name Dose Route Start Last Admin Trade Name Freq PRN Reason Stop Dose Admin Acetaminophen 650 mg 03/18/25 15:16 Acetaminophen 325 Mg Tablet PO Q6H PRN Mild Pain (1-3) or Fever Hydrocodone Bitart/Acetaminophen 1 tab 03/18/25 15:16 Hydrocodone/Acetaminophen (*Crx) 5-325 Mg Tablet PO Q4H PRN Pain Rated 4-6 Apixaban 5 mg 03/16/25 09:00 03/18/25 20:37 Apixaban 5 Mg Tablet PO 5 mg Q12HR ALENA Administration Carvedilol 12.5 mg 03/15/25 21:20 03/18/25 20:37 Carvedilol 12.5 Mg Tablet PO 12.5 mg Q12HR ALENA Administration Clopidogrel Bisulfate 75 mg 03/16/25 09:00 03/18/25 07:56 Clopidogrel Bisulfate 75 Mg Tablet PO 75 mg DAILY ALENA Administration Dextrose 12.5 gm 03/15/25 21:11 Dextrose 50% 25 Gm/50 Ml Syringe IV PUSH PRN PRN Hypoglycemia Protocol Ferrous Sulfate 325 mg 03/16/25 09:00 03/18/25 17:19 Ferrous Sulfate 325 Mg Tablet BY MOUTH 325 mg BID LAENA Administration Furosemide 40 mg 03/16/25 09:00 03/18/25 17:19 Furosemide 40 Mg Tablet PO 40 mg BID ALENA Administration Glipizide 5 mg 03/16/25 08:00 03/18/25 17:19 Glipizide 5 Mg Tablet PO 5 mg BIDWM [facility]LENA Administration Glucagon 1 mg 03/15/25 21:11 Glucagon For Inj 1 Mg Vial IM PRN PRN Hypoglycemia Protocol Glucose 15 gm 03/15/25 21:11 Glucose Oral Gel 15 Gm Of Glucse In 37.5 Gm Tube PO PRN PRN Hypoglycemia Protocol Hydralazine HCl 50 mg 03/15/25 21:10 03/18/25 17:19 Hydralazine Hcl 25 Mg Tablet PO 50 mg BID ALENA Administration Hydralazine HCl 10 mg 03/16/25 15:34 Hydralazine Hcl 20 Mg/Ml Vial IV PUSH Q8H PRN systolic > 180 Dextrose 1,000 mls @ 100 mls/hr 03/15/25 21:11 Dextrose 5% 1,000 Ml IVPB PRN PRN Hypoglycemia Protocol Ceftriaxone Sodium 1 gm/ 50 mls @ 100 mls/hr 03/16/25 03:00 03/19/25 02:10 Sodium Chloride IVPB Infused Q24H ALENA Infusion Albumin Human 50 mls @ 999 mls/hr 03/16/25 06:26 Albutein IVPB 04/15/25 06:25 Q10M PRN HYPOTENSION Sodium Chloride 500 mls @ 30 mls/hr 03/17/25 11:30 03/18/25 15:12 Normal Saline Iv IV CONT Not Given .[id number] ALENA Sodium Chloride 500 mls @ 30 mls/hr 03/17/25 11:30 03/18/25 15:13 Normal Saline Iv IV CONT Not Given .[id number] [facility] Insulin Aspart 2 - 5 units 03/16/25 08:00 03/18/25 17:03 Insulin Aspart (*Bkc) 100 Units/Ml SUB-Q Not Given TIDWM [facility] Protocol Lidocaine/Prilocaine 1 each 03/18/25 06:42 03/18/25 08:16 Lidocaine/Prilocaine Cream 2.5-2.5% Tube TOPICAL 1 each WITH DIALYSIS PRN Administration for dialysis Protocol Loratadine 10 mg 03/16/25 09:00 03/18/25 07:56 Loratadine 10 Mg Tablet PO 10 mg Q48H ALENA Administration Mupirocin 1 applic 03/16/25 09:00 03/18/25 22:00 Mupirocin 2% Oint 22 Gm Tube EACH NARE 03/20/25 21:01 1 applic Q12HR ALENA Administration Mupirocin 1 applic 03/16/25 09:00 03/18/25 17:19 Mupirocin 2% Oint 22 Gm Tube TOPICAL Not Given TID ALENA Ondansetron HCl 4 mg 03/17/25 11:27 Ondansetron Inj 4 Mg/2 Ml Vial IV PUSH ONCE PRN Nausea Rosuvastatin Calcium 10 mg 03/16/25 09:00 03/18/25 07:56 Rosuvastatin 10 Mg Tablet PO 10 mg DAILY ALENA Administration Vancomycin HCl 1 each 03/16/25 03:14 Vancomycin For Hemodialysis IVPB PRN PRN Vancomycin Protocol Vitamin D 50 mcg 03/16/25 09:00 03/18/25 17:19 Cholecalciferol (Vitamin D3) 25 Mcg (1,000 Units) Tablet PO 50 mcg BID ALENA Administration Labs Labs: Laboratory Results - last 24 hr 03/18/25 03/18/25 03/18/25 12:45 16:40 20:54 WBC RBC Hgb Hct MCV MCH MCHC RDW Plt Count MPV Sodium Potassium Chloride Carbon Dioxide Anion Gap BUN Creatinine Estim Creat Clear Calc Estimated GFR Glucose POC Capillary Glucose 137 H 190 H 220 H Calcium Total Bilirubin AST ALT Alkaline Phosphatase Total Protein Albumin 03/19/25 03/19/25 06:25 07:27 WBC 9.8 RBC 3.14 L Hgb 8.6 L Hct 28.8 L MCV 91.7 MCH 27.4 MCHC 29.9 L RDW 17.0 H Plt Count 217 MPV 8.5 Sodium 138 Potassium 3.9 Chloride 104 Carbon Dioxide 27 Anion Gap 7 BUN 24 H D Creatinine 3.85 H Estim Creat Clear Calc 14 Estimated GFR 15 L Glucose 143 H POC Capillary Glucose 142 H Calcium 8.9 Total Bilirubin 0.2 AST 29 ALT 12 Alkaline Phosphatase 78 Total Protein 6.4 Albumin 3.0 L
[2025-03-19] MEDS: ROSUVASTATIN 10 MG TABLET PO (09:04)
[2025-03-19 09:05] VITALS: PULSE 74
[2025-03-19] MEDS: CLOPIDOGREL BISULFATE 75 MG TABLET PO (09:05)
[2025-03-19] MEDS: FUROSEMIDE 40 MG TABLET PO (09:05)
[2025-03-19] MEDS: FERROUS SULFATE 325 MG TABLET BY MOUTH (09:05)
[2025-03-19] MEDS: APIXABAN 5 MG TABLET PO (09:05)
[2025-03-19] MEDS: CHOLECALCIFEROL (VITAMIN D3) 25 MCG (1,000 UNITS) TABLET 50 MCG PO (09:05)
[2025-03-19] MEDS: MUPIROCIN 2% OINT 22 GM TUBE 1 APPLIC EACH NARE (09:06)
[2025-03-19] MEDS: MUPIROCIN 2% OINT 22 GM TUBE 1 APPLIC TOPICAL ×2 (09:06→13:30)
--- NOTE | 2025-03-19 12:27 | PM.PNNEP ---
Progress Note: A&P Assessment and Plan (1) End-stage renal disease: Code(s): N18.6 - End stage renal disease Status: Chronic Assessment and Plan: HD tomorrow resume normal M/W/F dialysis schedule next week follow electrolytes, volume status, and clearance (2) Generalized weakness: Code(s): R53.1 - Weakness Status: Acute Assessment and Plan: in association with gait instability also with concerns patient may not be able to take care for himself at home care coordination assisting with possible placement (although patient does not seem agreeable to this...) PT/OT as tolerated (3) Penile lesion: Code(s): N48.9 - Disorder of penis, unspecified Status: Acute Assessment and Plan: noted on penile meatus previously seen by Urology on 03/06 ER visit wound culture at that time with MRSA and Serratia possibly complicated by UTI on antibiotics Urology following s/p flexible cystoscopy and debridement of glans penis in OR (on 03/17) (4) Anemia: Code(s): D64.9 - Anemia, unspecified Status: Acute Assessment and Plan: partly due to ESRD some worsening due to recent infections (?) Epogen with HD follow trend of H/H (5) Paroxysmal atrial fibrillation: Code(s): I48.0 - Paroxysmal atrial fibrillation Status: Chronic Assessment and Plan: rate control strategy on anticoagulation (6) Chronic combined systolic and diastolic CHF (congestive heart failure): Code(s): I50.42 - Chronic combined systolic (congestive) and diastolic (congestive) heart failure Status: Chronic Assessment and Plan: noted by previous testing no evidence of exacerbation fluid removal with dialysis to maintain euvolemia (7) Hypertension: Code(s): I10 - Essential (primary) hypertension Status: Chronic Assessment and Plan: elevated on admission reasonable control at this time follow trend of hemodynamics (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 Subjective Date/time seen: 03/19/25 12:27 Interval history: Follow-up for end stage renal disease on hemodialysis. Tolerated dialysis treatment yesterday without any issues or problems; no apparent distress noted at the time of my visit; no other events overnight or earlier this morning. Exam Narrative: General: elderly but WD/WN male in NAD Heart: normal S1 and S2; no rub Lungs: clear to auscultation Abdomen: soft, nontender, nondistended, positive bowel sounds Extremities: no cyanosis or clubbing; no edema Skin: no rash or nodules Objective Data Vital Signs Vital Signs: Vital Signs Temp Pulse Resp BP Pulse Ox O2 Del Method 03/19/25 09:05 74 03/19/25 06:31 98.0 F 83 20 153/77 H 99 03/18/25 21:23 99.1 F 83 18 134/70 97 03/18/25 20:37 83 03/18/25 20:35 Room Air Intake/Output Intake/Output: Intake & Output 03/16/25 03/17/25 03/18/25 03/19/25 23:59 23:59 23:59 22:59 Intake Total 465 868 0860 770 Output Total 8388 366 3704 350 Balance -560 270 -440 420 Meds/Results Medications: Active Medications Generic Name Dose Route Start Trade Name Freq PRN Reason Stop Acetaminophen 650 mg 03/18/25 15:16 Acetaminophen 325 Mg Tablet PO Q6H PRN Mild Pain (1-3) or Fever Hydrocodone Bitart/Acetaminophen 1 tab 03/18/25 15:16 Hydrocodone/Acetaminophen (*Crx) 5-325 Mg Tablet PO Q4H PRN Pain Rated 4-6 Apixaban 5 mg 03/16/25 09:00 Apixaban 5 Mg Tablet PO Q12HR [facility] Carvedilol 12.5 mg 03/15/25 21:20 Carvedilol 12.5 Mg Tablet PO Q12HR [facility] Clopidogrel Bisulfate 75 mg 03/16/25 09:00 Clopidogrel Bisulfate 75 Mg Tablet PO DAILY [facility] Dextrose 12.5 gm 03/15/25 21:11 Dextrose 50% 25 Gm/50 Ml Syringe IV PUSH PRN PRN Hypoglycemia Protocol Epoetin Noe-epbx 10,000 units 03/18/25 18:38 Epoetin Noe-Epbx 10,000 Units/Ml Vial IV PUSH 03/18/25 18:39 ONCE ONE Ferrous Sulfate 325 mg 03/16/25 09:00 Ferrous Sulfate 325 Mg Tablet BY MOUTH BID [facility] Furosemide 40 mg 03/16/25 09:00 Furosemide 40 Mg Tablet PO BID [facility] Glipizide 5 mg 03/16/25 08:00 Glipizide 5 Mg Tablet PO BIDWM [facility] Glucagon 1 mg 03/15/25 21:11 Glucagon For Inj 1 Mg Vial IM PRN PRN Hypoglycemia Protocol Glucose 15 gm 03/15/25 21:11 Glucose Oral Gel 15 Gm Of Glucse In 37.5 Gm Tube PO PRN PRN Hypoglycemia Protocol Hydralazine HCl 50 mg 03/15/25 21:10 Hydralazine Hcl 25 Mg Tablet PO BID [facility] Hydralazine HCl 10 mg 03/16/25 15:34 Hydralazine Hcl 20 Mg/Ml Vial IV PUSH Q8H PRN systolic > 180 Dextrose 1,000 mls @ 100 mls/hr 03/15/25 21:11 Dextrose 5% 1,000 Ml IVPB PRN PRN Hypoglycemia Protocol Ceftriaxone Sodium 1 gm/ 50 mls @ 100 mls/hr 03/16/25 03:00 Sodium Chloride IVPB Q24H [facility] Albumin Human 50 mls @ 999 mls/hr 03/16/25 06:26 Albutein IVPB 04/15/25 06:25 Q10M PRN HYPOTENSION Sodium Chloride 500 mls @ 30 mls/hr 03/17/25 11:30 Normal Saline Iv IV CONT .[id number] ALENA Sodium Chloride 500 mls @ 30 mls/hr 03/17/25 11:30 Normal Saline Iv IV CONT .[id number] [facility] Insulin Aspart 2 - 5 units 03/16/25 08:00 Insulin Aspart (*Bkc) 100 Units/Ml SUB-Q TIDWM [facility] Protocol Lidocaine/Prilocaine 1 each 03/18/25 06:42 Lidocaine/Prilocaine Cream 2.5-2.5% Tube TOPICAL WITH DIALYSIS PRN for dialysis Protocol Loratadine 10 mg 03/16/25 09:00 Loratadine 10 Mg Tablet PO Q48H [facility] Mupirocin 1 applic 03/16/25 09:00 Mupirocin 2% Oint 22 Gm Tube EACH NARE 03/20/25 21:01 Q12HR [facility] Mupirocin 1 applic 03/16/25 09:00 Mupirocin 2% Oint 22 Gm Tube TOPICAL TID [facility] Ondansetron HCl 4 mg 03/17/25 11:27 Ondansetron Inj 4 Mg/2 Ml Vial IV PUSH ONCE PRN Nausea Rosuvastatin Calcium 10 mg 03/16/25 09:00 Rosuvastatin 10 Mg Tablet PO DAILY [facility] Vancomycin HCl 1 each 03/16/25 03:14 Vancomycin For Hemodialysis IVPB PRN PRN Vancomycin Protocol Vitamin D 50 mcg 03/16/25 09:00 Cholecalciferol (Vitamin D3) 25 Mcg (1,000 Units) Tablet PO BID [facility] Labs Labs: Laboratory Tests 03/19/25 06:25 03/19/25 06:25 Calcium 8.9 Total Bilirubin 0.2 AST 29 ALT 12 Alkaline Phosphatase 78 Total Protein 6.4 Albumin 3.0 L
--- NOTE | 2025-03-19 12:27 | P.PNNP_ITS ---
Progress Note: A&P Assessment and Plan (1) End-stage renal disease: Code(s): N18.6 - End stage renal disease Status: Chronic Assessment and Plan: * HD tomorrow * resume normal M/W/F dialysis schedule next week * follow electrolytes, volume status, and clearance (2) Generalized weakness: Code(s): R53.1 - Weakness Status: Acute Assessment and Plan: * in association with gait instability * also with concerns patient may not be able to take care for himself at home * care coordination assisting with possible placement (although patient does not seem agreeable to this...) * PT/OT as tolerated (3) Penile lesion: Code(s): N48.9 - Disorder of penis, unspecified Status: Acute Assessment and Plan: * noted on penile meatus * previously seen by Urology on 03/06 ER visit * wound culture at that time with MRSA and Serratia * possibly complicated by UTI * on antibiotics * Urology following * s/p flexible cystoscopy and debridement of glans penis in OR (on 03/17) (4) Anemia: Code(s): D64.9 - Anemia, unspecified Status: Acute Assessment and Plan: * partly due to ESRD * some worsening due to recent infections (?) * Epogen with HD * follow trend of H/H (5) Paroxysmal atrial fibrillation: Code(s): I48.0 - Paroxysmal atrial fibrillation Status: Chronic Assessment and Plan: * rate control strategy * on anticoagulation (6) Chronic combined systolic and diastolic CHF (congestive heart failure): Code(s): I50.42 - Chronic combined systolic (congestive) and diastolic (congestive) heart failure Status: Chronic Assessment and Plan: * noted by previous testing * no evidence of exacerbation * fluid removal with dialysis to maintain euvolemia (7) Hypertension: Code(s): I10 - Essential (primary) hypertension Status: Chronic Assessment and Plan: * elevated on admission * reasonable control at this time * follow trend of hemodynamics (8) 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 L Subjective Date/time seen: 03/19/25 12:27 Interval history: Follow-up for end stage renal disease on hemodialysis. Tolerated dialysis treatment yesterday without any issues or problems; no apparent distress noted at the time of my visit; no other events overnight or earlier this morning. Exam 2 Narrative: General: elderly but WD/WN male in NAD Heart: normal S1 and S2; no rub Lungs: clear to auscultation Abdomen: soft, nontender, nondistended, positive bowel sounds Extremities: no cyanosis or clubbing; no edema Skin: no rash or nodules Objective Data Vital Signs Vital Signs: Vital Signs Temp Pulse Resp BP Pulse Ox O2 Del Method 03/19/25 09:05 74 03/19/25 06:31 98.0 F 83 20 153/77 H 99 03/18/25 21:23 99.1 F 83 18 134/70 97 03/18/25 20:37 83 03/18/25 20:35 Room Air Intake/Output Intake/Output: Intake & Output 03/16/25 03/17/25 03/18/25 03/19/25 23:59 23:59 23:59 22:59 Intake Total 213 085 2864 770 Output Total 3899 319 2863 350 Balance -560 270 -440 420 Meds/Results Medications: Active Medications Generic Name Dose Route Start Trade Name Freq PRN Reason Stop Acetaminophen 650 mg 03/18/25 15:16 Acetaminophen 325 Mg Tablet PO Q6H PRN Mild Pain (1-3) or Fever Hydrocodone Bitart/Acetaminophen 1 tab 03/18/25 15:16 Hydrocodone/Acetaminophen (*Crx) 5-325 Mg Tablet PO Q4H PRN Pain Rated 4-6 Apixaban 5 mg 03/16/25 09:00 Apixaban 5 Mg Tablet PO Q12HR [facility] Carvedilol 12.5 mg 03/15/25 21:20 Carvedilol 12.5 Mg Tablet PO Q12HR [facility] Clopidogrel Bisulfate 75 mg 03/16/25 09:00 Clopidogrel Bisulfate 75 Mg Tablet PO DAILY [facility] Dextrose 12.5 gm 03/15/25 21:11 Dextrose 50% 25 Gm/50 Ml Syringe IV PUSH PRN PRN Hypoglycemia Protocol Epoetin Noe-epbx 10,000 units 03/18/25 18:38 Epoetin Noe-Epbx 10,000 Units/Ml Vial IV PUSH 03/18/25 18:39 ONCE ONE Ferrous Sulfate 325 mg 03/16/25 09:00 Ferrous Sulfate 325 Mg Tablet BY MOUTH BID [facility] Furosemide 40 mg 03/16/25 09:00 Furosemide 40 Mg Tablet PO BID [facility] Glipizide 5 mg 03/16/25 08:00 Glipizide 5 Mg Tablet PO BIDWM [facility] Glucagon 1 mg 03/15/25 21:11 Glucagon For Inj 1 Mg Vial IM PRN PRN Hypoglycemia Protocol Glucose 15 gm 03/15/25 21:11 Glucose Oral Gel 15 Gm Of Glucse In 37.5 Gm Tube PO PRN PRN Hypoglycemia Protocol Hydralazine HCl 50 mg 03/15/25 21:10 Hydralazine Hcl 25 Mg Tablet PO BID [facility] Hydralazine HCl 10 mg 03/16/25 15:34 Hydralazine Hcl 20 Mg/Ml Vial IV PUSH Q8H PRN systolic > 180 Dextrose 1,000 mls @ 100 mls/hr 03/15/25 21:11 Dextrose 5% 1,000 Ml IVPB PRN PRN Hypoglycemia Protocol Ceftriaxone Sodium 1 gm/ 50 mls @ 100 mls/hr 03/16/25 03:00 Sodium Chloride IVPB Q24H [facility] Albumin Human 50 mls @ 999 mls/hr 03/16/25 06:26 Albutein IVPB 04/15/25 06:25 Q10M PRN HYPOTENSION Sodium Chloride 500 mls @ 30 mls/hr 03/17/25 11:30 Normal Saline Iv IV CONT .[id number] [facility] Sodium Chloride 500 mls @ 30 mls/hr 03/17/25 11:30 Normal Saline Iv IV CONT .[id number] [facility] Insulin Aspart 2 - 5 units 03/16/25 08:00 Insulin Aspart (*Bkc) 100 Units/Ml SUB-Q TIDWM [facility] Protocol Lidocaine/Prilocaine 1 each 03/18/25 06:42 Lidocaine/Prilocaine Cream 2.5-2.5% Tube TOPICAL WITH DIALYSIS PRN for dialysis Protocol Loratadine 10 mg 03/16/25 09:00 Loratadine 10 Mg Tablet PO Q48H [facility] Mupirocin 1 applic 03/16/25 09:00 Mupirocin 2% Oint 22 Gm Tube EACH NARE 03/20/25 21:01 Q12HR [facility] Mupirocin 1 applic 03/16/25 09:00 Mupirocin 2% Oint 22 Gm Tube TOPICAL TID [facility] Ondansetron HCl 4 mg 03/17/25 11:27 Ondansetron Inj 4 Mg/2 Ml Vial IV PUSH ONCE PRN Nausea Rosuvastatin Calcium 10 mg 03/16/25 09:00 Rosuvastatin 10 Mg Tablet PO DAILY [facility] Vancomycin HCl 1 each 03/16/25 03:14 Vancomycin For Hemodialysis IVPB PRN PRN Vancomycin Protocol Vitamin D 50 mcg 03/16/25 09:00 Cholecalciferol (Vitamin D3) 25 Mcg (1,000 Units) Tablet PO BID [facility] Labs Labs: Laboratory Tests 03/19/25 06:25 03/19/25 06:25 Calcium 8.9 Total Bilirubin 0.2 AST 29 ALT 12 Alkaline Phosphatase 78 Total Protein 6.4 Albumin 3.0 L
--- NOTE | 2025-03-19 12:51 | P.DS_ITS ---
DS: Admitting Diagnosis Discharge Date 03/19/2025 Admitting Diagnosis gait abnormality abnormal urinalysis penile lesion end stage renal disease on hd anemia dm nocturnal o2 afib DS: Discharge Diagnosis Discharge Diagnosis (1) Gait abnormality: Code(s): R26.9 - Unspecified abnormalities of gait and mobility Status: Acute (2) Abnormal urinalysis: Code(s): R82.90 - Unspecified abnormal findings in urine Status: Acute (3) Penile lesion: Code(s): N48.9 - Disorder of penis, unspecified Status: Acute (4) End-stage renal disease on hemodialysis: Code(s): N18.6 - End stage renal disease; Z99.2 - Dependence on renal dialysis Status: Chronic (5) Anemia, chronic disease: Code(s): D63.8 - Anemia in other chronic diseases classified elsewhere Status: Chronic (6) Type 2 diabetes mellitus with end-stage renal disease: Code(s): E11.22 - Type 2 diabetes mellitus with diabetic chronic kidney disease; N18.6 - End stage renal disease Status: Chronic (7) Dependence on nocturnal oxygen therapy: Code(s): Z99.81 - Dependence on supplemental oxygen Status: Acute (8) Atrial fibrillation: Code(s): I48.91 - Unspecified atrial fibrillation Status: Acute (9) Chronic systolic (congestive) heart failure: Code(s): I50.22 - Chronic systolic (congestive) heart failure Status: Chronic Assessment and Plan: DS: Summary Hospital Course Reason for hospitalization: gait abnormality abnormal urinalysis penile lesion end stage renal disease on hd anemia dm nocturnal o2 afib Hospital Course: 79-year-old male with a past medical history type 2 diabetes mellitus with peripheral neuropathy, retinopathy, chronic indwelling Negron catheter and end- stage renal disease on hemodialysis who presented to the hospital under the direction of his primary care physician as he is unable to care for himself at home. Patient states he uses a cane for short distances and otherwise is el ectric wheelchair bound. He was evaluted by PT/OT who recommended home health vs [facility]. Patient is alert and oriented throughout admission and states he is at his baseline function and is going home. He is agreeable to home health which has been set up per care coordination. On admission patient had a UA that was concerning for infection, started on IV antibiotics. Urine culture grew melinda which is likely colonization related to chronic negron and do not feel as though treatment is required at this time as patient is afebrile with stable WBC. Antibiotics discontinued. Patient negron catheter was exchanged during surgery. Patient had a necrotic appearing wound to the penile meatus previously seen on 03/06 when urology evaluated, plan at that time was to downsize catheter and continue abx with outpatient follow up. The penile culture at that time grew MRSA and serratia marcescens. Patient was started on IV antibiotics during admission to cover for the wound infection. Urology was consulted and patient underwent a flexible cystoscopy and debridement and biopsy of glans penis. He is to continue using the xeroform dressing and change this daily. He states he will be capable of changing the dressing himself at home. He is to follow up with urology in the outpatient setting. Prior to discharge discussed patient with infectious disease who did not personally evaluate the patient however recommendations received over the phone of continuing the patient on ciprofloxacin and doxycycline for another 7 days to complete the course. Patient had no complaints at time of discharge stating he feels back to his baseline. He denies any chest pain, palpitations, shortness of breath, nausea/vomiting, abodminal pain, and dizziness/lightheadedness. Patient discharged home with home health and family. He is to follow up with his primary care provider in 1 week, urology as scheduled, and continue dialysis with nephrology. Status at Discharge Functional status at discharge: uses cane/walker (short distances (2-3 steps), otherwise wheelchair ) Time Spent with Patient Time attestation: Total time spent providing and/or coordinating discharge services: Time spent: Greater than 30 minutes Exam Narrative: AF HR 83 RR 20 SpO2 99 BP 153/77 General: male in no acute respiratory distress who is nontoxic appearing, lying semi recumbent in bed HEENT: Normocephalic. Atraumatic. Extraocular movement intact. Sclera clear and anicteric. No facial asymmetry. Chest: Lungs are clear to auscultation bilaterally. No wheezes or crackles. CV: Heart was regular rate and rhythm. Abd: Abdomen was soft. Nontender. Nondistended. Positive bowel sounds. : surgical site healing well with no noted drainage. dressing clean/dry/intact. Ext: No clubbing, cyanosis, or edema. DP pulses bilaterally. Neuro: Patient is alert and oriented x3. Speech is clear. DS: Data Data Completed and Pending Pending studies at discharge: Pending at discharge 03/17/25 12:28 Surgical [PTH] Routine Labs on day of discharge: Labs from last 24 hours 03/19/25 03/19/25 03/19/25 11:36 07:27 06:25 WBC 9.8 RBC 3.14 L Hgb 8.6 L Hct 28.8 L MCV 91.7 MCH 27.4 MCHC 29.9 L RDW 17.0 H Plt Count 217 MPV 8.5 Sodium 138 Potassium 3.9 Chloride 104 Carbon Dioxide 27 Anion Gap 7 BUN 24 H D Creatinine 3.85 H Estim Creat Clear Calc 14 Estimated GFR 15 L Glucose 143 H POC Capillary Glucose 191 H 142 H Calcium 8.9 Total Bilirubin 0.2 AST 29 ALT 12 Alkaline Phosphatase 78 Total Protein 6.4 Albumin 3.0 L 03/18/25 03/18/25 20:54 16:40 WBC RBC Hgb Hct MCV MCH MCHC RDW Plt Count MPV Sodium Potassium Chloride Carbon Dioxide Anion Gap BUN Creatinine Estim Creat Clear Calc Estimated GFR Glucose POC Capillary Glucose 220 H 190 H Calcium Total Bilirubin AST ALT Alkaline Phosphatase Total Protein Albumin Discharge Plan Discharge Attending physician on discharge: Dewey Hallman Consulting providers: Opal White; Leonard Mckeon; Freddie Tom Discharging Clinician: Opal White Anticipated Discharge Date/Time: 03/19/25 12:06 Patient Disposition: Home with Home Health Service Activity: as tolerated Diet: as tolerated Wound Care Instructions: other - see discharge instructions Discharge Instructions: Discharge disposition: Patient had a penile lesion that underwent a flexible cystoscopy and debridement and biopsy of glans penis with Dr. Jean on 03/17 Pathology pending. Will receive a phone call likely Thursday or Thursday from urology about pathology results Change xeroform gauze and wrap around the tip of your penis daily Monitor for signs of infection including redness, pain, swelling, warmth, or drainage Follow up with urology in 10 days Lesion previously grew MRSA and seratia Continue ciprofloxacin and doxycycline, attached is information on this medication Complete this antibiotic course in its entirety even if feeling better Attached is information to the infectious disease office if you wish to have a follow up Continue dialysis as scheduled Monitor blood pressures Take caution while standing, rising, or moving Change positions slowly taking a break between each position change If you standing feel dizzy sit back down and take a break Encouraged to continue with yearly vaccinations Return to the emergency department if he developed sudden shortness of breath, chest pain, nausea, vomiting, upset stomach or intractable diarrhea Return to the emergency department if you develop fever greater than 100.5 Follow-up with the primary care physician within 1-2 weeks Thank you for choosing [facility] for your healthcare needs 1. Care Coordination: Patient to have [facility] for PT/OT eval and treat, and senior care. Their phone number is [phone], if you have any questions. They will contact you to schedule their visits. 2. Change wrap around penis tip daily using 1/4 Xeroform gauze Patient Instructions: Antibiotic Form, Ciprofloxacin (By mouth), Doxycycline (By mouth), Apixaban (By mouth), Blood Thinners (DC) Patient Language: Spanish Stand Alone Forms: General Discharge Information Follow-up/Referrals: Shaan Jessica MD [Physician, Infectious Disease] Leonard Mckeon MD [Physician, Nephrology] Kerry Walker DO [Primary Care Provider, Family Practice] - 1 Week Freddie Tom MD [Physician, Urology] - Keep Reg. Scheduled Appt. Discharge Medications: New ciprofloxacin HCl 750 mg tablet 750 mg PO Q12H Qty: 14 0RF doxycycline hyclate 100 mg tablet 100 mg PO BID Qty: 14 0RF Continued clopidogrel 75 mg tablet 75 mg PO DAILY coenzyme [id number] 100-100 mg-unit capsule 1 cap PO DAILY hydralazine 25 mg Tablet 50 mg PO BID ferrous sulfate [Iron (ferrous sulfate)] 325 mg (65 mg iron) Tablet 325 mg PO BID Eliquis 5 mg tablet 5 mg PO BID (DME) blood-glucose meter [ArtisoftTouch Ultra2 Meter] Kit See Rx Instructions .Route Qty: 1 0RF Rx Instructions: use to check blood sugar qd carvedilol 12.5 mg tablet See Rx Instructions .ROUTE .COMPLEX Qty: 180 3RF Dose Instruction: TAKE 1 TABLET BY MOUTH TWICE DAILY WITH MEALS Rx Instructions: TAKE 1 TABLET BY MOUTH TWICE DAILY WITH MEALS (DME) Accu-Chek Guide test strips Strip See Rx Instructions .Route Qty: 100 2RF Rx Instructions: Use to check blood glucose level once daily. (DME) blood-glucose meter [Accu-Chek Guide Me Glucose Mtr] Misc See Rx Instructions .Route Qty: 1 0RF Rx Instructions: Use to check blood glucose level once daily. furosemide 40 mg tablet See Rx Instructions .ROUTE .COMPLEX Qty: 180 0RF Dose Instruction: Take 1 tablet by mouth twice daily Rx Instructions: Take 1 tablet by mouth twice daily (DME) lancets [ArtisoftTouch Delica Plus Lancet] 30 gauge misc See Rx Instructions .ROUTE .COMPLEX Qty: 100 1RF Dose Instruction: USE 1 UNIT TO CHECK GLUCOSE ONCE DAILY Rx Instructions: USE 1 UNIT TO CHECK GLUCOSE ONCE DAILY glipizide 5 mg tablet See Rx Instructions .ROUTE .COMPLEX Qty: 180 1RF Dose Instruction: Take 1 tablet by mouth twice daily Rx Instructions: Take 1 tablet by mouth twice daily Triphrocaps 1 mg capsule See Rx Instructions .ROUTE .COMPLEX Qty: 90 1RF Dose Instruction: Take 1 capsule by mouth once daily Rx Instructions: Take 1 capsule by mouth once daily rosuvastatin 10 mg Tablet 10 mg PO DAILY loratadine 10 mg Capsule 10 mg PO EVERY OTHER DAY cholecalciferol (vitamin D3) 50 mcg (2,000 unit) Tablet 50 mcg PO BID Qty: 30 0RF Discontinued doxycycline hyclate 100 mg tablet 100 mg PO BID 7 Days Qty: 14 0RF Date of admission: 03/17/25 09:27 Primary Care Provider: Kerry Walker Admitting Provider: [facility] Attending physician on admission: [facility] Condition: Stable Hospitalist MIPS Heart Failure (Exclusion) Patient has history of Heart Transplant or Left Ventricular Assistive Device?: No IF YES, STOP HERE Heart Failure (Qualifier) Patient has current or prior documentation of LVEF less than or equal to 40%, or mod/servere depressed LVSF?: No IF NO, STOP HERE
== END 2025-03-19 16:20 | disposition home health service (06) | DRG 709 ==
LOC: ANHED 13:48 → ANH3MEDSUR 17:12
PROVIDERS: Internal Medicine; Internal Medicine Nephrology; Nurse Practitioner Adult Health; Urology; Admitting Provider Family Medicine; Emergency Provider Emergency Medicine; PCP Family Medicine; Visit Provider Student in an Organized Health Care Education/Training Program
PROC: 0VBSXZX Excision of Penis, External Approach, Diagnostic (ICD-10-PCS; CPT 54060; principal; 2025-03-17 12:00)
DX: N48.9 Disorder of penis, unspecified (principal); N18.6 End stage renal disease; I50.42 Chronic combined systolic (congestive) and diastolic (congestive) heart failure; I48.20 Chronic atrial fibrillation, unspecified; N25.81 Secondary hyperparathyroidism of renal origin; I69.351 Hemiplegia and hemiparesis following cerebral infarction affecting right dominant side; I13.0 Hypertensive heart and chronic kidney disease with heart failure and stage 1 through stage 4 chronic kidney disease, or unspecified chronic kidney disease; I65.22 Occlusion and stenosis of left carotid artery; I95.1 Orthostatic hypotension; I27.20 Pulmonary hypertension, unspecified; E11.22 Type 2 diabetes mellitus with diabetic chronic kidney disease; E11.40 Type 2 diabetes mellitus with diabetic neuropathy, unspecified; E11.319 Type 2 diabetes mellitus with unspecified diabetic retinopathy without macular edema; C61 Malignant neoplasm of prostate; D63.8 Anemia in other chronic diseases classified elsewhere; D63.1 Anemia in chronic kidney disease; J32.9 Chronic sinusitis, unspecified; E78.5 Hyperlipidemia, unspecified; M35.3 Polymyalgia rheumatica; N31.9 Neuromuscular dysfunction of bladder, unspecified; L30.9 Dermatitis, unspecified; R62.7 Adult failure to thrive; R26.9 Unspecified abnormalities of gait and mobility; H91.13 Presbycusis, bilateral; F17.220 Nicotine dependence, chewing tobacco, uncomplicated; Z20.822 Contact with and (suspected) exposure to COVID-19; Q74.0 Other congenital malformations of upper limb(s), including shoulder girdle; Z99.2 Dependence on renal dialysis; Z99.81 Dependence on supplemental oxygen; Z79.02 Long term (current) use of antithrombotics/antiplatelets; Z79.01 Long term (current) use of anticoagulants
CPT/HCPCS: 36415; 80053; 80069; 80202; 81001; 82565; 82948; 85025; 85027; 86140; 86706; 87086; 87340; 87637; 87641; 88305; 96365; 96375; 97161; 97165; 99212; 99285; A9270; G0257; G0378; G0463; J0696; J2003; J2704; J3010; J3373; J7030; J7040; J7050; Q5105

== ENCOUNTER 2025-03-24 16:18 | Inpatient (IN) | payer MEDICARE, MEDICAID, SELFPAY ==
[2025-03-24] VITALS (8 sets, daily range): BP systolic 86–154; BP diastolic 45–143; PULSE 91–132; RESP 16–22; TEMP 36.6–37.3; O2SAT 93–100; BMI 24.2
--- NOTE | ~2025-03-24 | XR_ITS ---
EXAMINATION: XR chest 1V, 03/24/2025 17:02 SENIOR COMPLIANCE OFFICER HISTORY: weakness COMPARISON: No comparisons available. Technique: Single view. Findings: The lungs are clear, no effusion. No pneumothorax. Heart is normal size. Mediastinal and hilar contours are within normal limits. Bony thorax no acute abnormality. Impression: No acute cardiopulmonary abnormality. Reviewed, dictated and finalized at location P. OR COMPLIANCE OFFICER Impression: No acute cardiopulmonary abnormality.
--- NOTE | ~2025-03-24 | CT_ITS ---
EXAMINATION: CT brain wo con, 03/25/2025 18:20 PATTERN FINISHER HISTORY: AMS COMPARISON: No comparisons available. Technique: Axial images obtained of the brain without contrast. One or more of the following dose reduction techniques were used: automated exposure control, adjustment of the mA and/or kV according to patient size, use of iterative reconstruction technique. Findings: Remote right cerebellar lacunar infarcts. Remote pontine lacunar infarct. Remote bilateral basal ganglia lacunar infarcts. Mastoid air cells unremarkable. Minimal right maxillary sinusitis. No acute fracture. No significant facial or scalp soft tissue swelling evident. No radiopaque foreign body is seen. Impression: 1.No acute intracranial abnormality. Reviewed, dictated and finalized at location P. ERN FINISHER Impression: 1.No acute intracranial abnormality.
--- NOTE | ~2025-03-24 | CT_ITS ---
EXAMINATION: CT abdomen pelvis wo con DATE: 03/24/2025 19:50 INDICATION: Colitis TECHNIQUE: Computed tomography (CT) of the abdomen and pelvis was performed without intravenous contrast. The dose-length product was 629.03 mGy-cm. Automated exposure control and iterative reconstruction technique were employed. COMPARISON: CT dated 02/26/2025 FINDINGS: Chronic atelectasis/interstitial lung disease of the lung bases. Heart size normal. Gallbladder contains stones. Moderate gallbladder distention. The dose liver, pancreas, adrenal glands are unremarkable. There is renal atrophy. There is a left renal cysts. There is a hypodense 2.6 cm splenic mass. There is extensive atherosclerosis. There is significant thickening of the descending colon, sigmoid colon and rectum with surrounding fatty infiltration. Sheriff catheter present in the bladder. Extensive atherosclerosis with stenosis at the origin of the SMA, possibly GUERA and renal arteries. IMPRESSION: 1. Significant thickening of the descending, sigmoid colon and rectum, consistent with colitis, most likely infectious or inflammatory. Ischemia is less favored although not excluded. 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 2: Hypodense 2.6 cm splenic mass. Differential diagnosis includes benign etiologies such as hemangioma, hamartoma and lymphangioma versus malignant lesion such as lymphoma or metastatic disease. 3: Cholelithiasis. 4: Chronic interstitial fibrosis of the lung bases. Reviewed, dictated and finalized at location O. URETOR REBUILDER IMPRESSION: 1. Significant thickening of the descending, sigmoid colon and rectum, consiste nt with colitis, most likely infectious or inflammatory. Ischemia is less favor ed although not excluded. 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 2: Hypodense 2.6 cm splenic mass. Differential diagnosis includes benign etiolo gies such as hemangioma, hamartoma and lymphangioma versus malignant lesion suc h as lymphoma or metastatic disease. 3: Cholelithiasis. 4: Chronic interstitial fibrosis of the lung bases.
--- NOTE | ~2025-03-24 | XR_ITS ---
EXAMINATION: XR chest 1V portable COMPARISON: No comparisons available. HISTORY: Fluid overload FINDINGS: Mild pulmonary venous congestion. No pneumothorax. Mild cardiomegaly. Mediastinal and hilar contours are within normal limits. Bony thorax no acute abnormality. Miscellaneous: None Impression: Mild CHF Reviewed, dictated and finalized at location P. BRAKE RIGGER Impression: Mild CHF
--- NOTE | ~2025-03-24 | CT_ITS ---
CT HEAD NON-CONTRAST Clinical History: acute ams Comparison: 03/25/2025 Technique: Unenhanced axial images skull base to vertex Coronal, sagittal reformats CT images acquired with automatic exposure control for dose reduction DLP: 681 mGy-cm Findings: Mild age-related atrophy. Lacune right caudate. Bilateral thalamic lacune. Small chronic infarct right cerebellum. Pontine lacune. Sulci, ventricles: Unremarkable. No intracerebral hemorrhage. No evidence acute territorial infarct. No mass effect, midline shift. Bony calvarium intact. Visualized paranasal sinuses: Mild disease right maxillary and ethmoids. Mastoid air cells: Clear. IMPRESSION: 1. No acute intracranial findings. Reviewed, dictated and finalized at location R. ICS INSTRUCTOR
--- NOTE | 2025-03-24 16:38 | ECG_ITS ---
Test Date: 2025-03-24 16:49:56 Measurements Intervals [place] Rate: 129 P: 0 OR: 0 QRS: -41 QRSD: 109 T: 134 QT: 316 QTc: 464 Interpretive Statements ATRIAL FIBRILLATION WITH RAPID VENTRICULAR RESPONSE INFERIOR MYOCARDIAL INFARCTION , PROBABLY OLD [40+ ms Q WAVE AND/OR ST/T ABNORMALITY IN II/aVF] MODERATE T-WAVE ABNORMALITY, CONSIDER LATERAL ISCHEMIA [-0.1+ mV T-WAVE IN I/aVL/V5/V6] INTRAVENTRICULAR CONDUCTION DELAY VENTRICULAR PREMATURE COMPLEX ABNORMAL ECG Electronically Signed On 03-24-2025 17:27:42 [employer] by Corby Hardin M.D.
[2025-03-24 16:50] LABS: Hematocrit 33.0 % (42.0-52.0); Hemoglobin 10.2 g/dL (14.0-18.0); Mean Corpuscular HGB Conc 30.9 g/dl (32-36); Mean Corpuscular Hemoglobin 27.1 pg (26-34); Mean Corpuscular Volume 87.5 fl (80-100); Platelet Count Result 226 k/mm3 (150-375); Red Blood Count 3.77 M/mm3 (4.6-6.20); White Blood Count 19.6 K/mm3 (4.5-10.0)
[2025-03-24 17:14] LABS: Alanine Aminotransferase 23 U/L (6-50); Albumin Level 3.4 g/dL (3.5-5.1); Alkaline Phosphatase 75 U/L (38-126); Anion Gap 10 mmol/L (4-12); Aspartate Amino Transferase 38 U/L (17-59); Bilirubin,Total 0.7 mg/dL (0.2-1.3); Blood Urea Nitrogen 32 mg/dL (9-20); Calcium 8.6 mg/dL (8.4-10.2); Carbon Dioxide 29 mmol/L (22-30); Chloride 92 mmol/L (98-107); Estimated CRCL calculation 16 ml/min; Estimated Glomerular Filt Rate 16; Glucose 79 mg/dL (65-110); Potassium 3.8 mmol/L (3.4-5.0); Sodium 131 mmol/L (137-145); Total Protein 7.1 g/dL (6.3-8.2)
[2025-03-24 17:17] LABS: Anisocytosis 1+; Band Neutrophils Percent 10 % (0-6); Eosinophils Absolute Manual 0.19 K/mm3 (0.02-0.50); Eosinophils Percent Manual 1 % (0-4); Lymphocytes Absolute Manual 0.58 K/mm3 (1.1-4.5); Lymphocytes Percent Manual 3 % (18-44); Monocytes Absolute Manual 0.78 K/mm3 (0.1-0.90); Monocytes Percent Manual 4 % (3-9); Neutrophils Absolute Manual 18.03 K/mm3 (1.3-6.7); Neutrophils Percent Manual 82 % (46-73); Schistocytes None Seen; Total Cells Counted 100
[2025-03-24 17:18] LABS: Crenated RBC Occasional; Ovalocytes Occasional
[2025-03-24] MEDS: SODIUM CHLORIDE 0.9% IV 1,000 ML 150 ML IV CONT (19:01)
--- NOTE | 2025-03-24 19:08 | PC.NURSE ---
pt had a large BM. stool sample obtained. pt was changed and linens changed and placed in new gown. pt had a negron in upon arrival, negron was changed due to stool
--- NOTE | 2025-03-24 20:25 | ED.GENADULT ---
HPI - General Adult General Chief complaint: Weakness Stated complaint: gen weak, from dialysis Time Seen by Provider: 03/24/25 18:06 Source: family Mode of arrival: EMS Limitations: clinical condition History of Present Illness HPI narrative: 79-year-old with a history of AFib, ESRD on hemodialysis was brought in from dialysis center with a complains of marked weakness. Patient daughter was at bedside states that he was discharged from the hospital few days ago was doing fine however he has been having constant diarrhea. He was admitted to the hospital bladder and/penile infection no fever or chills. Denies any nausea or vomiting. Onset (ago): day(s) (3) Radiation: non-radiation Severity: moderate Pain Consistency: constant Exacerbating factors: none Associated symptoms: weakness and other (Diarrhea) Treatments prior to arrival: none Related Data Home Medications ?Medication ?Instructions ?Recorded ?Confirmed ?Last Taken ?Type ferrous sulfate 325 mg (65 mg 325 mg PO BID 01/10/22 03/15/25 03/15/25 08:00 History iron) tablet (Iron (ferrous 325 mg sulfate)) apixaban 5 mg tablet (Eliquis) 5 mg PO BID 01/11/22 03/15/25 03/15/25 08:00 History 5 mg clopidogrel 75 mg tablet 75 mg PO DAILY 12/10/23 03/15/25 03/15/25 08:00 History 75 mg loratadine 10 mg capsule 10 mg PO EVERY OTHER DAY 01/06/24 03/15/25 03/15/25 08:00 History 10 mg rosuvastatin 10 mg tablet 10 mg PO DAILY 01/06/24 03/15/25 03/15/25 08:00 History 10 mg coenzyme [id number] E 100 mg-100 1 cap PO DAILY 01/21/24 03/15/25 03/15/25 08:00 History unit capsule 1 cap hydralazine 25 mg tablet 50 mg PO BID 03/15/25 03/15/25 03/15/25 08:00 History 50 mg Allergies Allergy/AdvReac Type Severity Reaction Status Date / Time Sulfa (Sulfonamide Allergy Unknown Rash,Unknow Verified 03/24/25 19:01 Antibiotics) n,Unknown,R isaiah,Rash,Un known,Unkno wn,Rash sitagliptin (From [facility]) Allergy Rash Verified 03/24/25 19:01 Tea Allergy Nausea and Uncoded 03/02/25 08:47 Vomiting Review of Systems Review of Systems: All systems reviewed & are unremarkable except as noted in HPI and below Constitutional: Constitutional: Reports no additional constitutional complaints Eyes: Eyes: Reports no additional eye complaints ENT: Reports system reviewed and no additional complaints, except as documented Cardiovascular: Cardiovascular: Reports no additional cardiovascular complaints Respiratory: Respiratory: Reports no additional respiratory complaints Gastrointestinal: Gastrointestinal: Reports as per HPI Musculoskeletal: Musculoskeletal: Reports no additional musculoskeletal complaints Integumentary/Breasts: Skin/Breast: Reports system reviewed and no additional complaints, except as docu [facility] Past Medical History Medical History Atrial fibrillation cardoversion 12/27/21 Dependence on nocturnal oxygen therapy Asymptomatic stenosis of left carotid artery Hemiparesis affecting right side as late effect of cerebrovascular accident Pulmonary hypertension Diabetic neuropathy Diabetic retinopathy Pulmonary hypertension Combined systolic and diastolic congestive heart failure Echocardiogram 10/2021: Mild concentric left ventricular hypertrophy, moderate left ventricular enlargement, moderate global left ventricular systolic dysfunction with EF of 30%, diastolic dysfunction, severe left atrial enlargement, mild right atrial enlargement, mild aortic valve regurgitation, moderate pulmonary hypertension with RVSP of 53, moderate tricuspid regurgitation End-stage renal disease Hemodialysis started June 2022; managed by Dr. 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 Abnormal thumb on the left hand Anemia of chronic disease Allergic rhinitis Chronic sinusitis Eczema Ulcer Hyperlipidemia Surgical History Surgical History Status post creation of arteriovenous fistula Left upper arm Status post cataract extraction of both eyes with insertion of intraocular lens Family History Family History Father Lung cancer Daughter Chronic lung disease Morbid obesity Grandparent Asthma Mother Hypertension Other Diabetes mellitus Heart disease Malignant neoplasm of prostate Social History Social History Social History: status: Full code Surrogate decision maker: Smokeless tobacco user: chewing tobacco Second hand tobacco smoke exposure: No Alcohol intake: former Alcohol use details: He reports that he drank heavily until 1975 when he found [facility]. Substance use: never Substance use type: does not use Do You Feel Safe in your Home?: Yes Lack of Transportation: No Lack of Food: Never True Current Housing: I Have Housing Concerned About Future Housing: No Difficulty Paying Gas/Electric Bills: No Difficulty Paying for Meds: No Currently Unemployed: No Education: Decline to Answer Difficulty w/ Childcare or Family Care: No Living arrangements: with family Additional living arrangements comments: He and his have been since 1975. He has total of 6 children 5 of which are still living and her relatively healthy. He had 1 daughter who of morbid obesity and chronic lung disease. 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 Gender identity (if verbalized by the patient): Male Sexual Orientation (if Verbalized by the Patient): Straight or Heterosexual Spiritual care concerns: No Agree to blood products: Yes Exam Narrative: GENERAL:ill-appearing, well-nourished, and in no acute distress. HEAD: Normocephalic, atraumatic. EYES: PERRLA and EOMI. ENT: Nares clear, no rhinorrhea or epistaxis. Mucous membranes moist. NECK: Supple. CHEST: Clear to auscultation. No respiratory distress. HEART: Regular rate and rhythm. No murmur heard. Normal peripheral pulses. ABDOMEN: Soft, nontender, nondistended, normal active bowel sounds. Back has sacral decubitus ulcer stage 2 EXTREMITIES: Normal range of motion. No edema. SKIN: Warm, dry, no rash. NEURO: No focal deficits. Alert and oriented x3. PSYCH: Normal mood and affect. Course Vital Signs Vital signs: Vital Signs Temperature 36.6 C 03/24/25 16:22 Pulse Rate 132 H 03/24/25 16:22 Respiratory Rate 22 H 03/24/25 16:22 Blood Pressure 154/143 H 03/24/25 16:22 Pulse Oximetry 93 03/24/25 16:22 Oxygen Delivery Room Air 03/24/25 16:22 Temperature 36.6 C 03/24/25 16:22 Pulse Rate 103 H 03/24/25 19:22 Respiratory Rate 20 03/24/25 19:07 Blood Pressure 121/50 L 03/24/25 19:22 Pulse Oximetry 98 03/24/25 19:07 Oxygen Delivery Room Air 03/24/25 16:22 Medical Decision Making MDM Narrative Medical decision making narrative: 79-year-old with the multiple medical problems recent discharge from the hospital for penile infection on Cipro and doxy presents to the ER with a complains of having diarrhea, marked weakness exam is unremarkable except for he being a poor historian he does have a decubitus ulcer stage II , will lose CT of the abdomen and pelvis for rule out colitis also send a stool for C diff. Differential Diagnosis Differential Diagnosis: colitis , antibiotic induced diarrhea , metabolic encephalopathy c diff . Medical Records Medical records reviewed: Yes I reviewed the external patient's medical records. Vital Signs Vital Signs: Vital Signs Temperature 36.6 C 03/24/25 16:22 Pulse Rate 132 H 03/24/25 16:22 Respiratory Rate 22 H 03/24/25 16:22 Blood Pressure 154/143 H 03/24/25 16:22 Pulse Oximetry 93 03/24/25 16:22 Oxygen Delivery Room Air 03/24/25 16:22 Temperature 36.6 C 03/24/25 16:22 Pulse Rate 103 H 03/24/25 19:22 Respiratory Rate 20 03/24/25 19:07 Blood Pressure 121/50 L 03/24/25 19:22 Pulse Oximetry 98 03/24/25 19:07 Oxygen Delivery Room Air 03/24/25 16:22 Lab Data Lab results reviewed: Yes I reviewed the patient's lab results. 03/24/25 16:41 03/24/25 16:41 Labs: Lab Results 03/24/25 03/24/25 Range/Units 16:41 20:15 WBC 19.6 H (4.5-10.0) K/mm3 RBC 3.77 L (4.6-6.20) M/mm3 Hgb 10.2 L (14.0-18.0) g/dL Hct 33.0 L (42.0-52.0) % MCV 87.5 (80-100) fl MCH 27.1 (26-34) pg MCHC 30.9 L (32-36) g/dl RDW 17.5 H (11.5-14.5) % Plt Count 226 (150-375) k/mm3 MPV 9.1 (7.4-10.4) fl Immature Gran % (Auto) Not Reportable Neut % (Auto) Not Reportable Lymph % (Auto) Not Reportable [place] % (Auto) Not Reportable Eos % (Auto) Not Reportable Baso % (Auto) Not Reportable Lymph # (Auto) Not Reportable [place] # (Auto) Not Reportable Eos # (Auto) Not Reportable Baso # (Auto) Not Reportable Abs Immat Gran (auto) Not Reportable Absolute Neuts (auto) Not Reportable Absolute Nucleated RBC Not Reportable Total Counted 100 Neutrophils % (Manual) 82 H (46-73) % Band Neutrophils % 10 H (0-6) % Lymphocytes % (Manual) 3 L (18-44) % Monocytes % (Manual) 4 (3-9) % Eosinophils % (Manual) 1 (0-4) % Nucleated RBC % Not Reportable Abs Neuts (Manual) 18.03 H (1.3-6.7) K/mm3 Abs Lymphs (Manual) 0.58 L (1.1-4.5) K/mm3 Abs Monocytes (Manual) 0.78 (0.1-0.90) K/mm3 Absolute Eos (Manual) 0.19 (0.02-0.50) K/mm3 Platelet Estimate Adequate (Adequate) Anisocytosis 1+ Ovalocytes Occasional Crenated Cell Occasional Schistocytes None seen Sodium 131 L (137-145) mmol/L Potassium 3.8 (3.4-5.0) mmol/L Chloride 92 L (98-107) mmol/L Carbon Dioxide 29 (22-30) mmol/L Anion Gap 10 (4-12) mmol/L BUN 32 H (9-20) mg/dL Creatinine 3.73 H (0.7-1.3) mg/dL Estim Creat Clear Calc 16 ml/min Estimated GFR 16 L (59 - ) Glucose 79 (65-110) mg/dL Calcium 8.6 (8.4-10.2) mg/dL Total Bilirubin 0.7 (0.2-1.3) mg/dL AST 38 (17-59) U/L ALT 23 (6-50) U/L Alkaline Phosphatase 75 (38-126) U/L Total Protein 7.1 (6.3-8.2) g/dL Albumin 3.4 L (3.5-5.1) g/dL C. difficile (PCR) Pending Imaging Data Radiologist's impression: ITS Impressions Chest X-Ray 03/24/25 17:13 Impression: No acute cardiopulmonary abnormality. Abdomen/Pelvis CT 03/24/25 20:06 IMPRESSION: 1. Significant thickening of the descending, sigmoid colon and rectum, consistent with colitis, most likely infectious or inflammatory. Ischemia is less favored although not excluded. 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 2: Hypodense 2.6 cm splenic mass. Differential diagnosis includes benign etiologies such as hemangioma, hamartoma and lymphangioma versus malignant lesion such as lymphoma or metastatic disease. 3: Cholelithiasis. 4: Chronic interstitial fibrosis of the lung bases. ECG Data EKG #1: ECG completion date: 03/24/25 ECG completion time: 16:49 EKG Interpretation: tachycardia (129), atrial fibrillation, no ST changes and no acute changes Discharge Plan Discharge Clinical Impression: Colitis AMS (altered mental status) Qualifiers: Altered mental status type: unspecified Qualified Code(s): R41.82 - Altered mental status, unspecified Patient Disposition: Still a Patient Condition: Stable Patient Language: Stateless Prescriptions: No Action clopidogrel 75 mg tablet 75 mg PO DAILY coenzyme [id number] 100-100 mg-unit capsule 1 cap PO DAILY hydralazine 25 mg Tablet 50 mg PO BID ciprofloxacin HCl 750 mg tablet 750 mg PO Q12H Qty: 14 0RF doxycycline hyclate 100 mg tablet 100 mg PO BID Qty: 14 0RF ferrous sulfate [Iron (ferrous sulfate)] 325 mg (65 mg iron) Tablet 325 mg PO BID Eliquis 5 mg tablet 5 mg PO BID (DME) blood-glucose meter [[email or web address] Ultra2 Meter] Kit See Rx Instructions .Route Qty: 1 0RF Rx Instructions: use to check blood sugar qd carvedilol 12.5 mg tablet See Rx Instructions .ROUTE .COMPLEX Qty: 180 3RF Dose Instruction: TAKE 1 TABLET BY MOUTH TWICE DAILY WITH MEALS Rx Instructions: TAKE 1 TABLET BY MOUTH TWICE DAILY WITH MEALS (DME) Accu-Chek Guide test strips Strip See Rx Instructions .Route Qty: 100 2RF Rx Instructions: Use to check blood glucose level once daily. (DME) blood-glucose meter [Accu-Chek Guide Me Glucose Mtr] Misc See Rx Instructions .Route Qty: 1 0RF Rx Instructions: Use to check blood glucose level once daily. (DME) lancets [OneTouch Delica Plus Lancet] 30 gauge misc See Rx Instructions .ROUTE .COMPLEX Qty: 100 1RF Dose Instruction: USE 1 UNIT TO CHECK GLUCOSE ONCE DAILY Rx Instructions: USE 1 UNIT TO CHECK GLUCOSE ONCE DAILY glipizide 5 mg tablet See Rx Instructions .ROUTE .COMPLEX Qty: 180 1RF Dose Instruction: Take 1 tablet by mouth twice daily Rx Instructions: Take 1 tablet by mouth twice daily Triphrocaps 1 mg capsule See Rx Instructions .ROUTE .COMPLEX Qty: 90 1RF Dose Instruction: Take 1 capsule by mouth once daily Rx Instructions: Take 1 capsule by mouth once daily furosemide 40 mg tablet See Rx Instructions .ROUTE .COMPLEX Qty: 180 0RF Dose Instruction: Take 1 tablet by mouth twice daily Rx Instructions: Take 1 tablet by mouth twice daily rosuvastatin 10 mg Tablet 10 mg PO DAILY loratadine 10 mg Capsule 10 mg PO EVERY OTHER DAY cholecalciferol (vitamin D3) 50 mcg (2,000 unit) Tablet 50 mcg PO BID Qty: 30 0RF Follow-up/Referrals: Kerry Walker DO [Primary Care Provider, Family Practice] Time of Disposition: 20:49
--- NOTE | 2025-03-24 20:29 | PC.NURSE ---
Urine cancelled because Dr Farrell states pt does not make urine.
[2025-03-24] MEDS: SODIUM CHLORIDE 0.9% IV 1,000 ML 75 ML IV CONT (21:19)
[2025-03-24 21:46] LABS: Toxigenic C. Diff POSITIVE (NEGATIVE)
[2025-03-24] MEDS: metroNIDAZOLE 500 MG/ISO 100ML 500 MG/100 ML BAG 100 MG IVPB (21:57)
--- NOTE | 2025-03-24 22:20 | PM.IMHP ---
H&P: HPI History of Present Illness Date/Time: 03/25/25 02:05 Chief Complaint: Weakness and confusion Narrative: 79-year-old male well known to me from prior hospitalizations with past medical history of end-stage renal disease on hemodialysis Thursday, essential hypertension, type 2 diabetes mellitus, grade 2 diastolic dysfunction, peripheral artery disease, neurogenic bladder with chronic indwelling Sheriff catheter with necrosis of the penile meatus who presented to the ER via EMS from dialysis due to weakness and confusion. Patient was recently hospitalized 03/17/2025 through 03/19/2025 due to failure to thrive, necrosis of the tip of the penis with cystoscopy and downsizing of his Sheriff catheter with debridement of his penile meatus. He was discharged home on Cipro and doxycycline for prior culture of the meatus result from February demonstrating Serratia and MRSA. While in the ER the patient had a large incontinent bowel movement of diarrhea. The patient reports that he has been having diarrhea since the 2nd day after being discharged from the hospital. He is having numerous diarrheal stools a day. His stools are mushy and watery. He has started having fevers and chills over the last 2 days. He has had significant decrease in appetite. He reports that he feels like he has lost weight. He denies any chest pain or shortness of breath. He reports that he has feels overtly weak. He reports feeling nauseous but not having any significant vomiting. He does still produce a small amount of urine and has a Sheriff catheter in place. According to the Urology note patient had Sheriff catheter in place for about 3 weeks prior to his previous admission. In the ER CT scan demonstrated colitis and he had marked leukocytosis. Is electrolyte panel was stable. C diff PCR was found to be positive. The patient's blood pressures in the ER were soft with systolic blood pressures in the 90s and when the patient arrived to the ER his heart rate was initially in the 120s to 130s in AFib. He denies missing any medications. He has been continuing to take the Cipro and Flagyl that he was discharged on. Review of Systems Review of Systems: 12 systems were reviewed with pertinent positives and negatives per HPI. Except as documented in the HPI, all other systems were reviewed and are negative. [facility] Past Medical History Medical History (Updated 03/25/25 @ 02:20 by Rebecca Marcelino DO) Atrial fibrillation cardoversion 12/27/21 Dependence on nocturnal oxygen therapy Asymptomatic stenosis of left carotid artery Hemiparesis affecting right side as late effect of cerebrovascular accident Pulmonary hypertension Diabetic neuropathy Diabetic retinopathy Pulmonary hypertension Combined systolic and diastolic congestive heart failure Echocardiogram 10/2021: Mild concentric left ventricular hypertrophy, moderate left ventricular enlargement, moderate global left ventricular systolic dysfunction with EF of 30%, diastolic dysfunction, severe left atrial enlargement, mild right atrial enlargement, mild aortic valve regurgitation, moderate pulmonary hypertension with RVSP of 53, moderate tricuspid regurgitation End-stage renal disease Hemodialysis started June 2022; managed by Dr. 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 Abnormal thumb on the left hand Anemia of chronic disease Allergic rhinitis Chronic sinusitis Eczema Ulcer Hyperlipidemia Surgical History Surgical History Status post creation of arteriovenous fistula Left upper arm Status post cataract extraction of both eyes with insertion of intraocular lens Family History Family History Father Lung cancer Daughter Chronic lung disease Morbid obesity Grandparent Asthma Mother Hypertension Other Diabetes mellitus Heart disease Malignant neoplasm of prostate Social History Social History (Updated 03/25/25 @ 05:33 by Rebecca Marcelino DO) Social History: The patient lives with his until recent hospitalization. After that hospitalization the patient's was discharged to her daughter's home and his is currently on hospice (March 2025). The patient's daughter and son-in-law are currently living with him and helping him with his daily cares. status: Full code Surrogate decision maker: Catie Lynne (daughter) Smokeless tobacco user: chewing tobacco Second hand tobacco smoke exposure: No Alcohol intake: former Alcohol use details: He reports that he drank heavily until 1975 when he found [facility]. Substance use: never Substance use type: does not use Do You Feel Safe in your Home?: Yes Lack of Transportation: No Lack of Food: Never True Current Housing: I Have Housing Concerned About Future Housing: No Difficulty Paying Gas/Electric Bills: No Difficulty Paying for Meds: No Currently Unemployed: No Education: High School Diploma/GED Difficulty w/ Childcare or Family Care: No Living arrangements: with family Additional living arrangements comments: He and his have been since 1975. In his had children from separate marriages. He had 1 daughter who of morbid obesity and chronic lung disease. 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 Gender identity (if verbalized by the patient): Male Sexual Orientation (if Verbalized by the Patient): Straight or Heterosexual Spiritual care concerns: No Agree to blood products: Yes Meds Home Medications and Allergies Home Medications ?Medication ?Instructions ?Recorded ?Confirmed ?Type ferrous sulfate 325 mg (65 mg 325 mg PO BID 01/10/22 03/24/25 History iron) tablet (Iron (ferrous sulfate)) apixaban 5 mg tablet (Eliquis) 5 mg PO BID 01/11/22 03/24/25 History blood-glucose meter (OneTouch #1 ea 01/22/22 03/24/25 Rx Ultra2 Meter kit) clopidogrel 75 mg tablet 75 mg PO DAILY 12/10/23 03/24/25 History loratadine 10 mg capsule 10 mg PO EVERY OTHER DAY 01/06/24 03/24/25 History rosuvastatin 10 mg tablet 10 mg PO DAILY 01/06/24 03/24/25 History cholecalciferol (vitamin D3) 50 50 mcg PO BID #30 tabs 01/17/24 03/24/25 Rx mcg (2,000 unit) tablet coenzyme [id number] E 100 mg-100 1 cap PO DAILY 01/21/24 03/24/25 History unit capsule carvedilol 12.5 mg tablet See Rx Instructions .Route 08/29/24 03/24/25 Rx .COMPLEX #180 tabs blood sugar diagnostic (Accu-Chek #100 ea 10/03/24 03/24/25 Rx Guide test strips) blood-glucose meter (Accu-Chek #1 ea 10/03/24 03/24/25 Rx Guide Me Glucose Meter) lancets 30 gauge (OneTouch Delica #100 ea 12/26/24 03/24/25 Rx Plus Lancet) glipizide 5 mg tablet See Rx Instructions .Route 01/12/25 03/24/25 Rx .COMPLEX #180 tabs vitamin B complex and vitamin C See Rx Instructions .Route 01/12/25 03/24/25 Rx no.20-folic acid 1 mg capsule .COMPLEX #90 caps (Triphrocaps) hydralazine 25 mg tablet 50 mg PO BID 03/15/25 03/24/25 History ciprofloxacin HCl 750 mg tablet 750 mg PO Q12H #14 tabs 03/19/25 03/24/25 Rx doxycycline hyclate 100 mg tablet 100 mg PO BID #14 tabs 03/19/25 03/24/25 Rx furosemide 40 mg tablet See Rx Instructions .Route 03/24/25 03/24/25 Rx .COMPLEX #180 tabs Allergies Allergy/AdvReac Type Severity Reaction Status Date / Time Sulfa (Sulfonamide Allergy Unknown Rash,Unknow Verified 03/24/25 19:01 Antibiotics) n,Unknown,R isaiah,Rash,Un known,Unkno wn,Rash sitagliptin ([facility]) Allergy Rash Verified 03/24/25 19:01 Tea Allergy Nausea and Uncoded 03/02/25 08:47 Vomiting Vital Signs Vital Signs - 24 hr 03/24/25 16:22 03/24/25 17:32 03/24/25 17:56 Temperature 97.8 F Pulse Rate 132 H 120 H 106 H Respiratory Rate 22 H 18 17 Blood Pressure 154/143 H 114/90 Pulse Oximetry 93 100 Oxygen Delivery Room Air 03/24/25 19:07 03/24/25 19:07 03/24/25 19:09 Temperature Pulse Rate 104 H 109 H 105 H Respiratory Rate 20 Blood Pressure 96/46 L 86/54 L Pulse Oximetry 98 Oxygen Delivery 03/24/25 19:22 03/24/25 21:39 Temperature Pulse Rate 103 H 91 Respiratory Rate 18 Blood Pressure 121/50 L 97/49 L Pulse Oximetry 100 Oxygen Delivery Exam Narrative: Weight 76.5 kg BMI 24.2 Const: Other: Acutely ill-appearing, well-nourished, appears older than stated age, debilitated HENMT: Other: Mucous membranes are dry, no oral pharyngeal erythema, positive conjunctival pallor, no scleral icterus, pupils are equal and reactive Neck: Other: No lymphadenopathy, no thyromegaly Resp: Other: Clear to auscultation bilaterally, no increased work of breathing Cardio: Other: Irregularly irregular, 2+ bilateral pedal pulses, 2+ right radial pulse, palpable thrill over left upper extremity AV fistula GI: Other: Hyperactive bowel sounds, nontender, nondistended, no organomegaly : Other: Sheriff catheter in place with small amount of purulence from the urethral meatus, small amount a urine in the catheter bag that is dark yellow and clear, catheter was exchanged in the ER Skin: Other: Patient has a small skin tear/abrasion to the left upper arm with dressing that was saturated in blood, the patient has excoriation and pressure wounds to sacrum and bilateral upper buttock, otherwise generalized pallor, no mottling Neuro: Other: Patient is alert orient x4, speech is clear, no facial asymmetry, responses are slowed but relatively appropriate. Mentation is improved from my last assessment the patient during prior H&P, Extrem: Other: Thick overgrown toenails that curl on multiple digit to the feet with some of the nails growing inward towards the plantar surface of toes Psych: Other: Appropriate mood, pleasant affect, fair judgment and insight H&P: Results Labs Labs: Laboratory Tests 03/24/25 16:41 03/24/25 16:41 03/24/25 03/24/25 03/24/25 16:41 20:15 21:48 WBC 19.6 H RBC 3.77 L Hgb 10.2 L Hct 33.0 L MCV 87.5 MCH 27.1 MCHC 30.9 L RDW 17.5 H Plt Count 226 MPV 9.1 Immature Gran % (Auto) Not Reportable Neut % (Auto) Not Reportable Lymph % (Auto) Not Reportable Runnels % (Auto) Not Reportable Eos % (Auto) Not Reportable Baso % (Auto) Not Reportable Lymph # (Auto) Not Reportable Runnels # (Auto) Not Reportable Eos # (Auto) Not Reportable Baso # (Auto) Not Reportable Abs Immat Gran (auto) Not Reportable Absolute Neuts (auto) Not Reportable Absolute Nucleated RBC Not Reportable Total Counted 100 Neutrophils % (Manual) 82 H Band Neutrophils % 10 H Lymphocytes % (Manual) 3 L Monocytes % (Manual) 4 Eosinophils % (Manual) 1 Nucleated RBC % Not Reportable Abs Neuts (Manual) 18.03 H Abs Lymphs (Manual) 0.58 L Abs Monocytes (Manual) 0.78 Absolute Eos (Manual) 0.19 Platelet Estimate Adequate Anisocytosis 1+ Ovalocytes Occasional Crenated Cell Occasional Schistocytes None seen Sodium 131 L Potassium 3.8 Chloride 92 L Carbon Dioxide 29 Anion Gap 10 BUN 32 H Creatinine 3.73 H Estim Creat Clear Calc 16 Estimated GFR 16 L Glucose 79 Lactic Acid 1.1 Calcium 8.6 Total Bilirubin 0.7 AST 38 ALT 23 Alkaline Phosphatase 75 Total Protein 7.1 Albumin 3.4 L Procalcitonin 1.4 Nasal MRSA (PCR) C. difficile (PCR) Positive A* C. difficile Ag & Toxin Positive A C. difficile GDH Ag Positive A 03/24/25 23:23 WBC RBC Hgb Hct MCV MCH MCHC RDW Plt Count MPV Immature Gran % (Auto) Neut % (Auto) Lymph % (Auto) Runnels % (Auto) Eos % (Auto) Baso % (Auto) Lymph # (Auto) Runnels # (Auto) Eos # (Auto) Baso # (Auto) Abs Immat Gran (auto) Absolute Neuts (auto) Absolute Nucleated RBC Total Counted Neutrophils % (Manual) Band Neutrophils % Lymphocytes % (Manual) Monocytes % (Manual) Eosinophils % (Manual) Nucleated RBC % Abs Neuts (Manual) Abs Lymphs (Manual) Abs Monocytes (Manual) Absolute Eos (Manual) Platelet Estimate Anisocytosis Ovalocytes Crenated Cell Schistocytes Sodium Potassium Chloride Carbon Dioxide Anion Gap BUN Creatinine Estim Creat Clear Calc Estimated GFR Glucose Lactic Acid Calcium Total Bilirubin AST ALT Alkaline Phosphatase Total Protein Albumin Procalcitonin Nasal MRSA (PCR) Not detected C. difficile (PCR) C. difficile Ag & Toxin C. difficile GDH Ag Impressions Chest X-Ray 03/24/25 17:13 Impression: No acute cardiopulmonary abnormality. Abdomen/Pelvis CT 03/24/25 20:06 IMPRESSION: 1. Significant thickening of the descending, sigmoid colon and rectum, consistent with colitis, most likely infectious or inflammatory. Ischemia is less favored although not excluded. 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 2: Hypodense 2.6 cm splenic mass. Differential diagnosis includes benign etiologies such as hemangioma, hamartoma and lymphangioma versus malignant lesion such as lymphoma or metastatic disease. 3: Cholelithiasis. 4: Chronic interstitial fibrosis of the lung bases. EKG:Test Date: 2025-03-24 16:49:56 Measurements Intervals Olmitz Rate: 129 P: 0 CT: 0 QRS: -41 QRSD: 109 T: 134 QT: 316 QTc: 464 Interpretive Statements ATRIAL FIBRILLATION WITH RAPID VENTRICULAR RESPONSE INFERIOR MYOCARDIAL INFARCTION , PROBABLY OLD [40+ ms Q WAVE AND/OR ST/T ABNORMALITY IN II/aVF] MODERATE T-WAVE ABNORMALITY, CONSIDER LATERAL ISCHEMIA [-0.1+ mV T-WAVE IN I/aVL/V5/V6] INTRAVENTRICULAR CONDUCTION DELAY VENTRICULAR PREMATURE COMPLEX ABNORMAL ECG Assessment and Plan Assessment and plan (1) C. difficile colitis: Code(s): A04.72 - Enterocolitis due to Clostridium difficile, not specified as recurrent Status: Acute (2) AMS (altered mental status): Qualifiers: Altered mental status type: unspecified Qualified Code(s): R41.82 - Altered mental status, unspecified Code(s): R41.82 - Altered mental status, unspecified Status: Acute (3) Sepsis: Qualifiers: Sepsis acute organ dysfunction status: with acute organ dysfunction Sepsis type: sepsis due to unspecified organism Severe sepsis acute organ dysfunction type: encephalopathy Severe sepsis shock status: without septic shock Qualified Code(s): A41.9 - Sepsis, unspecified organism; R65.20 - Severe sepsis without septic shock; G93.41 - Metabolic encephalopathy Code(s): A41.9 - Sepsis, unspecified organism Status: Acute (4) Penile lesion: Code(s): N48.9 - Disorder of penis, unspecified Status: Acute (5) Diabetes: Qualifiers: Chronic kidney disease stage: on chronic dialysis Diabetes mellitus complication detail: with chronic kidney disease Diabetes mellitus complication status: with kidney complications Diabetes mellitus rn long term care insulin use: without intermediate use Diabetes mellitus type: type 2 Qualified Code(s): E11.22 - Type 2 diabetes mellitus with diabetic chronic kidney disease; N18.6 - End stage renal disease; Z99.2 - Dependence on renal dialysis Code(s): E11.9 - Type 2 diabetes mellitus without complications Status: Acute (6) Dependence on nocturnal oxygen therapy: Code(s): Z99.81 - Dependence on supplemental oxygen Status: Acute (7) Chronic anticoagulation: Code(s): Z79.01 - rodent exterminator (current) use of anticoagulants Status: Acute (8) Atrial fibrillation: Qualifiers: Atrial fibrillation type: permanent Qualified Code(s): I48.21 - Permanent atrial fibrillation Code(s): I48.91 - Unspecified atrial fibrillation Status: Acute Plan Patient has sepsis due to C diff colitis with recent antibiotic use. Sepsis criteria met with tachycardia, leukocytosis in the setting of colitis on imaging with borderline hypotension. Lactic acid was added but was normal but patient did have elevated procalcitonin and has significant bandemia on CBC. Will discontinue outpatient Cipro and doxycycline the patient the patient had previously been discharged drawn. Will place the patient on Dificid p.o. b.i.d.. Patient received 500 mL of isotonic fluids at 150 mL an hour. 30 mL/kilos fluid bolus not administered due to the patient's history of CHF and end-stage renal disease. Will obtain blood cultures and repeat CBC in a.m.. Patient did have some altered mental status but a patient's mentation at the time my evaluation had actually improved compared to his prior hospitalization. Altered mental status likely due to metabolic encephalopathy from acute infection and illness. However cannot her rule out some underlying mild cognitive impairment. Patient would benefit from neuro cognitive testing on discharge. Patient has penile ulceration at the meatus that was debrided during last hospitalization. There seems to be a moderate amount of cloudy white drainage less purulent in appearance than during prior hospitalization. Will hold off on any antibiotic therapy in will apply topical care with Xeroform gauze. Sheriff catheter was exchanged in the ER. Patient has indwelling catheter due to history of atonic bladder. Patient has diabetes but is currently euglycemic. Will hold oral hypoglycemic agents. Will place patient on Accu-Cheks a.c. HS and will add hypoglycemia protocol. Repeat labs in morning did demonstrate hypoglycemia with supplements provided. Patient had hypokalemia on repeat labs in a.m. with 40 mEq potassium chloride administered. Will repeat electrolyte panel daily until stable. Patient has chronic AFib but is currently rate controlled. Will continue home Eliquis and Coreg. Patient does have chronic CHF buttock currently appears intervascular volume depleted. Will hold home Lasix and will hold hydralazine given borderline hypotension. MEDICAL DECISION MAKING NARRATIVE -Spoke with the ED provider in detail regarding patient's evaluation, workup and management -Patient seen and examined at bedside -Collaborated with patient's nurse at the bedside in detail and addressed all concerns -Labs, electrolytes, radiology, investigations and test results personally reviewed and interpreted unless otherwise specified -ED/Consult/Nursing/Ancilliary notes on the chart reviewed and appreciated -Spoke with patient at bedside and diagnosis and plan of care was discussed. All questions answered. Quality VTE Prophylaxis VTE prophylaxis: pharmacologic ordered (Continue home Eliquis) Hospitalist MIPS Advance Care Plan I have confirmed that the patient's Advanced Care Plan is present, code status is documented, or surrogate decision maker is listed in patient medical record.: Yes Medication Reconciliation I have utilized all available resources to obtain, update and review the patients current medications (includes all prescriptions, OTC, herbals, cannabis, and nutritional supplements).: Yes
[2025-03-24 22:58] LABS: CDiff Toxin A&B Ag Positive (Negative); Clostridium Difficile GDH Ag Positive (Negative)
[2025-03-24 23:11] LABS: Procalcitonin 1.4 ng/mL
[2025-03-24] MEDS: FIDAXOMICIN 200 MG TABLET PO (23:43)
--- NOTE | 2025-03-24 23:57 | ADMGEN ---
This patient, Abel Pike, was admitted to IMU Room 213-01 at 2245. Patient/family oriented to hospital policies and general routines including ID bracelet, bed and alarms, visiting hours, pain management, procedures, bathroom and other care routines, personal items, smoking policy, room service/diet, and visiting hours. Information on how to activate the Rapid Response Team has been discussed. Patient/Family are encouraged to report perceived risks to care and to ask questions if they do not understand what they are told or what they should do.
[2025-03-25] VITALS (16 sets, daily range): BP systolic 108–132; BP diastolic 47–58; PULSE 87–124; RESP 16–18; TEMP 36.9–37.7; O2SAT 94–98
[2025-03-25 01:04] LABS: MRSA (PCR) NOT DETECTED (NOT DETECTE)
[2025-03-25 04:37] LABS: Hematocrit 28.0 % (42.0-52.0); Hemoglobin 8.5 g/dL (14.0-18.0); Mean Corpuscular HGB Conc 30.4 g/dl (32-36); Mean Corpuscular Hemoglobin 26.5 pg (26-34); Mean Corpuscular Volume 87.2 fl (80-100); Platelet Count Result 194 k/mm3 (150-375); Red Blood Count 3.21 M/mm3 (4.6-6.20); White Blood Count 17.2 K/mm3 (4.5-10.0)
[2025-03-25 05:03] LABS: Anion Gap 9 mmol/L (4-12); Blood Urea Nitrogen 41 mg/dL (9-20); Calcium 8.2 mg/dL (8.4-10.2); Carbon Dioxide 30 mmol/L (22-30); Chloride 93 mmol/L (98-107); Estimated CRCL calculation 13 ml/min; Estimated Glomerular Filt Rate 12; Glucose 51 mg/dL (65-110); Potassium 2.7 mmol/L (3.4-5.0); Sodium 132 mmol/L (137-145)
[2025-03-25 05:07] LABS: Anisocytosis 1+; Band Neutrophils Percent 3 % (0-6); Lymphocytes Absolute Manual 0.86 K/mm3 (1.1-4.5); Lymphocytes Percent Manual 5.0 % (18-44); Monocytes Absolute Manual 0.34 K/mm3 (0.1-0.90); Monocytes Percent Manual 2 % (3-9); Neutrophils Absolute Manual 15.99 K/mm3 (1.3-6.7); Neutrophils Percent Manual 90 % (46-73); Ovalocytes Occasional; Schistocytes None Seen; Total Cells Counted 100
[2025-03-25] MEDS: GLUCOSE ORAL GEL 15 GM OF GLUCSE IN 37.5 GM TUBE PO (05:30)
[2025-03-25] MEDS: POTASSIUM CHLORIDE 20 MEQ PACKET (FOR LIQUID) 40 MEQ PO ×2 (05:33→15:07)
[2025-03-25 06:13] LABS: Magnesium 2.2 mg/dL (1.6-2.3)
--- OUTSIDE RECORDS SUMMARY | 2025-03-25 08:20 | XMS_ITS | Encounter Summary ---
Author Organization [facility] Address [address] [place] [address] Phone Care Team Providers Care Top Executive Name Role Phone Srikanth Danielson MD Primary Care Provider [phone] Reason for Visit * Reason Comments Med Refill Encounter Details Date Type Department Care Team (Late st Contact Info) Description 09/22/2019 Refill [facility] 5003 [facility] 1 [place] [address] Estiven Dubois MD 5003 [facility] 1 [place] [address] Social History Tobacco Use Types Packs/Day Years Used Date Smoking Tobacco: Never Smokeless Tobacco: Never Alcohol Use Standard Drinks/Week Comments No 0 (1 standard drink = 0.6 oz pur e alcohol) Sex and Gender Information Value Date Recorded Sex Assigned at Not on file Legal Sex Male 8:46 AM [facility] Gender Identity Not on file Sexual Orientation Not on file documented as of this encounter Plan of Treatment Not on file documented as of this encounter Visit Diagnoses Not on filedocumented in this encounter Care Teams Top Executive Relationship Specialty Start Date End Date Srikanth Danielson MD 531 [facility] 100 [place] [address] PCP - General Family Medicine 11/03/18 documented as of this encounter
--- OUTSIDE RECORDS SUMMARY | 2025-03-25 08:20 | XMS_ITS | Encounter Summary ---
Author Organization [facility] Address [address] [place] [address] Phone Care Team Providers Care Relief Cook Name Role Phone Srikanth Danielson MD Primary Care Provider [phone] Reason for Visit * Reason Comments Med Refill Encounter Details Date Type Department Care Team (Late st Contact Info) Description 02/17/2019 Refill [facility] 5003 [facility] 1 [place] [address] Dulce Wang, GARAGE WORKER 5003 [facility] 1 [place] [address] Social History Tobacco Use Types [...] on filedocumented in this encounter Care Teams Relief Cook Relationship Specialty Start Date End Date rSikanth Danielson MD 531 [facility] 100 [place] [address] PCP - General Family Medicine 11/03/18 documented as of this encounter
--- OUTSIDE RECORDS SUMMARY | 2025-03-25 08:20 | XMS_ITS | Clinical Summary ---
Author Organization [facility] Address [address] [place] [address] Phone Care Team Providers Care Travel Pt Name Role Phone Srikanth Danielson MD Primary Care Provider Allergies Active Allergy Reactions Criticality Noted Date Comments Sitagliptin Rash Medium 09/25/2021 Sulfa Antibiotics Hives,Itching Medium 09/25/2021 Medications carvedilol (COREG) 25 MG tablet one tab two times daily 0 6 Active Additional Information Patient taking differently: 12.5 mgOral2 times daily with meals, Reported on 05/29/2022 B Awoxevu-O-Icovd Acid (TRIPHROCAPS) 1 MG capsule Take by [...] FOR EMLA 30 g 11 5 Active ondansetron (ZOFRAN) 4 MG tablet Take 1 tablet (4 mg total) by mouth every 12 (twelve) hours if needed for nausea or vomiting 30 tablet 1 5 Active Active Problems Problem Noted Date [...] hyperparathyroidism of renal origin 04/22/20 16 03/10/2022 Encounters Date Type Department Care Team Description 03/23/2025 Orders Only [facility] [address] [place] [address] Dulce Wang NP from Last 3 Months Immunizations Immunization Administration Dates Next Due Influenza [...] on file Legal Sex Male 8:46 AM [facility] Gender Identity Not on file Sexual Orientation Not on file Last Filed Vital Signs Vital Sign Reading Time Taken Comments Blood Pressure 129/42 05/29/2022 2:19 PM BANANA GRADER Pulse 53 05/29/2022 2:19 PM BANANA GRADER Temperature 36.6 C (97.8 F) 04/17/2021 12:11 PM BANANA GRADER Respiratory Rate - - Oxygen Saturation - - Inhaled Oxygen Concentration - - Weight 81.6 kg (180 lb) 05/29/2022 2:19 PM BANANA GRADER Height 177.8 cm (5' 10) 05/29/2022 2:19 PM BANANA GRADER Body Mass Index 25.83 05/29/2022 2:19 PM BANANA GRADER Plan of Treatment Health Maintenance Due Date Last Done Comments Diabetic Foot Exam 08/15/1957 Ophthalmology Exam 08/15/1957 Pneumococcal PPSV23/PCV13 65 + Years / High and Highest Risk (2 of 4 - PPSV23, PCV20, or PCV21) 04/28/2017 03/03/2017 COVID-19 Vaccine (3 - 2024- season) 2025, 07/09/2020 Influenza Vaccine (#1) 2025 Insurance MEDICARE [facility] [employer] MEDICARE ADVANTAGE Care Teams Travel Pt Relationship Specialty Start Date End Date Srikanth Danielson MD [address] [address] PCP - General Family Medicine 11/03/18
--- OUTSIDE RECORDS SUMMARY | 2025-03-25 08:20 | XMS_ITS | Clinical Summary ---
Author Organization [facility] Address [address] [place] [address] Phone Care Team Providers Care Combined Rail Operator Name Role Phone Srikanth Hernandez MD Primary Care Provider [phone] Social History Tobacco Use Types Packs/Day Years [...] to complete this topic Insurance Care Teams Combined Rail Operator Relationship Specialty Start Date End Date Srikanth Hernandez MD [address] [address] PCP - General Family Medicine 07/08/23
--- OUTSIDE RECORDS SUMMARY | 2025-03-25 08:20 | XMS_ITS | Encounter Summary ---
Author Organization [facility] Address [address] [place] [address] Phone Care Team Providers Care Machinery Erector Name Role Phone Srikanth Danielson MD Primary Care Provider [phone] Reason for Visit * Reason Comments Med Refill Encounter Details Date Type Department Care Team ([facility] st Contact Info) Description 02/11/2022 Refill [facility] 5003 [facility] 1 [place] [address] Estiven Dubois MD 5003 [facility] 1 [place] [address] Social History Tobacco Use Types Packs/Day Years Used Date Smoking Tobacco: Never Smokeless Tobacco: Never Alcohol Use Standard Drinks/Week Comments No 0 (1 standard drink = 0.6 oz pur e alcohol) Sex and Gender Information Value Date Recorded Sex Assigned at Not on file Legal Sex Male 8:46 AM [facility] Gender Identity Not on file Sexual Orientation Not on file documented as of this encounter Plan of Treatment Not on file documented as of this encounter Visit Diagnoses Not on filedocumented in this encounter Care Teams Machinery Erector Relationship Specialty Start Date End Date Srikanth Danielson MD 531 [facility] 100 [place] [address] PCP - General Family Medicine 11/03/18 documented as of this encounter
--- OUTSIDE RECORDS SUMMARY | 2025-03-25 08:20 | XMS_ITS | Encounter Summary ---
Author Organization [facility] Address [address], [place] [address] Phone Care Team Providers Care Ambulatory Nurse Name Role Phone Srikanth Danielson MD Primary Care Provider [phone] Encounter Details Date Type Department Care Team (Late st Contact Info) Description 03/23/2025 Orders Only [facility] 5003 [facility] 1 [place] [address] Dulce Wang NP 5003 [facility] 1 [place], [place] [address] Social History Tobacco Use Types Packs/Day Years Used Date Smoking Tobacco: Never Smokeless Tobacco: Never Alcohol Use Standard Drinks/Week Comments No 0 (1 standard drink = 0.6 oz pur e alcohol) Sex and Gender Information Value Date Recorded Sex Assigned at Not on file Legal Sex Male 8:46 AM [facility] Gender Identity Not on file Sexual Orientation Not on file documented as of this encounter Plan of Treatment Not on file documented as of this encounter Visit Diagnoses Not on filedocumented in this encounter Care Teams Ambulatory Nurse Relationship Specialty Start Date End Date Srikanth Danielson MD 531 [facility] 100 [place] [address] PCP - General Family Medicine 11/03/18 documented as of this encounter
--- OUTSIDE RECORDS SUMMARY | 2025-03-25 08:20 | XMS_ITS | Encounter Summary ---
Author Organization [facility] Address [address] [place] [address] Phone Care Team Providers Care Barber Shop Operator Name Role Phone Srikanth Danielson MD Primary Care Provider [phone] Reason for Visit * Reason Comments Med Refill Encounter Details Date Type Department Care Team ([facility] st Contact Info) Description 08/15/2021 Refill [facility] 5003 [facility] 1 [place] [address] Estiven Dubois MD 5003 [facility] 1 [place] [address] Social History Tobacco Use Types Packs/Day Years Used Date Smoking Tobacco: Never Smokeless Tobacco: Never Alcohol Use Standard Drinks/Week Comments No 0 (1 standard drink = 0.6 oz pur e alcohol) Sex and Gender Information Value Date Recorded Sex Assigned at Not on file Legal Sex Male 8:46 AM [facility] Gender Identity Not on file Sexual Orientation Not on file documented as of this encounter Plan of Treatment Not on file documented as of this encounter Visit Diagnoses Not on filedocumented in this encounter Care Teams Barber Shop Operator Relationship Specialty Start Date End Date Srikanth Danielson MD 531 [facility] 100 [place] [address] PCP - General Family Medicine 11/03/18 documented as of this encounter
--- OUTSIDE RECORDS SUMMARY | 2025-03-25 08:22 | XMS_ITS | Clinical Summary ---
Author Organization [facility] Address [address] [place] [address] Care Team Providers Care Paper And Prints Restorer Name Role Phone Unavailable Primary Care Provider [...]
--- OUTSIDE RECORDS SUMMARY | 2025-03-25 08:25 | XMS_ITS | Encounter Summary ---
Author Organization [facility] Address [address] [place] [address] Phone Care Team Providers Care Company Accountant Name Role Phone Srikanth Danielson MD Primary Care Provider [phone] Reason for Visit * Reason Comments Med Refill Encounter Details Date Type Department Care Team ([facility] st Contact Info) Description 11/14/2021 Refill [facility] 5003 [facility] 1 [place] [address] Estiven Dubois MD 5003 [facility] 1 [place] [address] Social History Tobacco Use Types Packs/Day Years Used Date Smoking Tobacco: Never Smokeless Tobacco: Never Alcohol Use Standard Drinks/Week Comments No 0 (1 standard drink = 0.6 oz pur e alcohol) Sex and Gender Information Value Date Recorded Sex Assigned at Not on file Legal Sex Male 8:46 AM [facility] Gender Identity Not on file Sexual Orientation Not on file documented as of this encounter Plan of Treatment Not on file documented as of this encounter Visit Diagnoses Not on filedocumented in this encounter Care Teams Company Accountant Relationship Specialty Start Date End Date Srikanth Danielson MD 531 [facility] 100 [place] [address] PCP - General Family Medicine 11/03/18 documented as of this encounter
--- OUTSIDE RECORDS SUMMARY | 2025-03-25 08:26 | XMS_ITS | Encounter Summary ---
Author Organization [facility] Healthcare Address [address] [place] [address] Care Team Providers Care Frontend Engineer Name Role Phone Srikanth Hernandez MD Primary Care Prov ider Estiven Dubois MD Unavailable [phone] Rebecca Zuluaga OCCUPATIONAL THERAPY ASST Unavailable [phone] Mathew Plummer MD Unavailable + [phone] Srikanth Stephens MD Unavailable + [phone] Tootie Kraft OCCUPATIONAL THERAPY ASST Unavailable + [phone] Minoo Mcgowan MD PhD Unavailable [phone] Encounter Details Date Type Department Care Team (Late st Contact Info) Description 01/08/2023 Telephone [facility] D[facility] Access Center at [facility] 46[address] [facility] [address] [place] [address] Srikanth Stephens MD [address] [place] [address] [address]120 [facility] [address]120 [place] [address] Social History Tobacco Use Types Packs/Day Years [...] often do you attend chur ch or confucianism services? Never 02/07/2022 Do you belong to any clubs o r organizations such as moravian groups, unions, fraternal or athletic groups, or [...] on file Legal Sex Male 6:58 PM ACTUARIAL TRAINEE Gender Identity Not on file Sexual Orientation Not on file documented as of this encounter Plan of Treatment Not on file documented as of this encounter Visit Diagnoses Not on filedocumented in this encounter Care Teams Frontend Engineer Relationship Specialty Start Date End Date Srikanth Hernandez MD PCP - General Family Medicine 10/16/19 Estiven Dubois MD [address] [address] Consulting Physician Nephrology 10/23/21 Rebecca Zuluaga NP [address] [address] Nurse Practitioner Cardiology 12/27/21 Mathew Plummer MD [facility]5 [facility] [address] [address] Consulting Physician Interventional Cardiology 04/14/22 Srikanth Stephens MD [facility]0 [facility] [address]120 [facility] [address] [place] [address] Surgeon Surgery 04/28/22 Tootie Kraft NP [address] [place] [address] Nurse Practitioner Medical Oncology 05/22/22 Minoo Mcgowan MD PhD [address] [place] [address] Registered Nurse Vascular Surgery 01/06/24 documented as of this encounter
--- OUTSIDE RECORDS SUMMARY | 2025-03-25 08:26 | XMS_ITS | Encounter Summary ---
Author Organization [facility] Healthcare Address [address] [place] [address] Care Team Providers Care Maintenance Service Technician Name Role Phone Srikanth Hernandez MD Primary Care Prov ider Estiven Dubois MD Unavailable [phone] Rebecca Zuluaga CHEMICAL RESEARCH WORKER Unavailable [phone] Mathew Plummer MD Unavailable + [phone] Srikanth Stephens MD Unavailable + [phone] Tootie Kraft CHEMICAL RESEARCH WORKER Unavailable + [phone] Minoo Mcgowan MD PhD Unavailable [phone] Encounter Details Date Type Department Care Team (Late st Contact Info) Description 11/13/2023 Telephone [facility] Dialysis Access Center at [facility] [address] [facility] [address] [place] [address] Srikanth Stephens MD [address] [place] [address] [address]120 [facility] [address] [place] [address] Social History Tobacco Use Types Packs/Day Years [...] often do you attend chur ch or zoroastrian services? Never 02/07/2022 Do you belong to any clubs o r organizations such as jain groups, unions, fraternal or athletic groups, or [...] place to sleep or slept in a [place] facility (including now)? No 02/07/2022 Personal Safety Answer Date Recorded Have you ever been in or are you currently in a harmful physical or emotional relationship or is someone making you feel afraid or unsafe? Denies 07/07/2023 Sex and Gender Information Value Date Recorded Sex Assigned at Not on file Legal Sex Male 6:58 PM CLOUD OPERATIONS ENGINEER Gender Identity Not on file Sexual Orientation Not on file documented as of this encounter Plan of Treatment Not on file documented as of this encounter Visit Diagnoses Not on filedocumented in this encounter Care Teams Maintenance Service Technician Relationship Specialty Start Date End Date Srikanth Hernandez MD PCP - General Family Medicine 10/16/19 Estiven Dubois MD [address] [id number] Consulting Physician Nephrology 10/23/21 Rebecca Zuluaga NP [address] [id number] Nurse Practitioner Cardiology 12/27/21 Mathew Plummer MD [facility] [address] Consulting Physician Interventional Cardiology 04/14/22 Srikanth Stephens MD 4600 [facility] [address]120 [facility] [address] [place] [address] Surgeon Surgery 04/28/22 Tootie Kraft NP [facility] [id number] Nurse Practitioner Medical Oncology 05/22/22 Minoo Mcgowan MD PhD [address] [place] [address] Registered Nurse Vascular Surgery 01/06/24 documented as of this encounter
--- OUTSIDE RECORDS SUMMARY | 2025-03-25 08:26 | XMS_ITS | Encounter Summary ---
Author Organization [facility] Healthcare Address [address] [place] [address] Care Team Providers Care Jig Grinder Set Up Operator Name Role Phone Srikanth Hernandez MD Primary Care Prov ider Estiven Dubois MD Unavailable + [phone] Rebecca Zuluaga GEOMETRICIAN Unavailable [phone] Mathew Plummer MD Unavailable + [phone] Srikanth Stephens MD Unavailable + [phone] Tootie Kraft GEOMETRICIAN Unavailable + [phone] Minoo Mcgowan MD PhD Unavailable [phone] Encounter Details Date Type Department Care Team (Late st Contact Info) Description 04/01/2024 Telephone [facility] Dialysis Access Center at [facility] 46[address] [facility] [address] [place] [address] Naeem Stephens MD [address] [place] [address] 120 [place] [address] Social History Tobacco Use Types Packs/Day Years [...] often do you attend chur ch or jewish services? Never 02/07/2022 Do you belong to any clubs o r organizations such as latter day groups, unions, fraternal or athletic groups, or [...] on file Legal Sex Male 6:58 PM NEWS VIDEOGRAPHER Gender Identity Not on file Sexual Orientation Not on file documented as of this encounter Plan of Treatment Not on file documented as of this encounter Visit Diagnoses Not on filedocumented in this encounter Care Teams Jig Grinder Set Up Operator Relationship Specialty Start Date End Date Srikanth Hernandez MD PCP - General Family Medicine 10/16/19 Estiven Dubois MD [address] [address] Consulting Physician Nephrology 10/23/21 Rebecca Zuluaga NP [address] [address] Nurse Practitioner Cardiology 12/27/21 Mathew Plummer MD 1225 [facility] [address], [place] [address] Consulting Physician Interventional Cardiology 04/14/22 Srikanth Stephens MD 4600 [facility] [address]120 [facility] [address] [place] [address] Surgeon Surgery 04/28/22 Tootie Kraft, ELANA [address] [place] [address] Nurse Practitioner Medical Oncology 05/22/22 Minoo Mcgowan MD PhD [address] [place] [address] Registered Nurse Vascular Surgery 01/06/24 documented as of this encounter
--- OUTSIDE RECORDS SUMMARY | 2025-03-25 08:26 | XMS_ITS | Encounter Summary ---
Author Organization [facility] Healthcare Address [address] [place] [address] Care Team Providers Care Vp Mobile Products Name Role Phone Srikanth Hernandez MD Primary Care Prov ider Estiven Dubois MD Unavailable + [phone] Rebecca Zuluaga AIRCRAFT LAYOUT WORKER Unavailable [phone] Mathew Plummer MD Unavailable + [phone] Srikanth Stephens MD Unavailable + [phone] Tootie Kraft AIRCRAFT LAYOUT WORKER Unavailable + [phone] Minoo Mcgowan MD PhD Unavailable [phone] Encounter Details Date Type Department Care Team (Late st Contact Info) Description 09/16/2022 Telephone [facility] [address] 180 [place] [address] Srikanth Stephens MD [facility] B120 [facility] [address]120 [place] [address] Social History Tobacco Use Types Packs/Day Years [...] week 02/07/2022 How often do you attend [facility] or hoahaoism services? Never 02/07/2022 Do [...] place to sleep or slept in a long-term (including now)? No 02/07/2022 Sex and Gender Information Value Date Recorded Sex Assigned at Not on file Legal Sex Male 6:58 PM ACCOUNTS CLERK Gender Identity Not on file Sexual Orientation Not on file documented as of this encounter Plan of Treatment Not on file documented as of this encounter Visit Diagnoses Not on filedocumented in this encounter Care Teams Vp Mobile Products Relationship Specialty Start Date End Date Srikanth Hernandez MD PCP - General Family Medicine 10/16/19 Estiven Dubois MD [address] [address] Consulting Physician Nephrology 10/23/21 Rebecca Zuluaga NP [address] [address] Nurse Practitioner Cardiology 12/27/21 [place] [address] [place] [address], [place] [address] Consulting Physician Interventional Cardiology 04/14/22 Srikanth Stephens MD 4600 [facility] [address]120 [facility] [address]120 [place] [address] Surgeon Surgery 04/28/22 Tootie Kraft NP [address] [place] [address] [address] Nurse Practitioner Medical Oncology 05/22/22 Minoo Mcgowan MD PhD [address] [place] [address] Registered Nurse Vascular Surgery 01/06/24 documented as of this encounter
--- OUTSIDE RECORDS SUMMARY | 2025-03-25 08:28 | XMS_ITS | Encounter Summary ---
Author Organization [facility] Healthcare Address [address] [place] [address] Care Team Providers Care Auto Body Estimator Name Role Phone Srikanth Hernandez MD Primary Care Prov ider Bon Izquierdo MD Unavailable [phone] Estiven Dubois MD Unavailable [phone] Rebecca Zuluaga LOTTERY OFFICE MANAGER Unavailable [phone] Mathew Plummer MD Unavailable + [phone] Srikanth Stephens MD Unavailable [phone] Tootie Kraft LOTTERY OFFICE MANAGER Unavailable + [phone] Minoo Mcgowan MD PhD Unavailable [phone] Encounter Details Date Type Department Care Team (Late st Contact Info) Description 04/18/2022 Telephone [facility] Dialysis Access Center at [facility] [address] [place] [address] Srikanth Stephens MD [address] [facility] [address] [place] [address] Social History Tobacco Use Types Packs/Day Years [...] any clubs o r organizations such as sikh groups, unions, fraternal or athletic groups, or [...] place to sleep or slept in a group home (including now)? No 02/07/2022 Sex and Gender Information Value Date Recorded Sex Assigned at Not on file Legal Sex Male 6:58 PM WOOL SUPPLIER Gender Identity Not on file Sexual Orientation Not on file documented as of this encounter Functional Status * Vera Fall Risk Question Answer Date of Assessment Author History of Falling 0 04/21/2022 5:00 PM Elaine Dorado RN Secondary Diagnosis 15 04/21/2022 5:00 PM CS T Elaine Bond RN Ambulatory Aids 15 04/21/2022 5:00 PM WOOL SUPPLIER Elaine Remy RN Intravenous Therapy/Heparin/Saline Lock 0 04/21/2022 5:00 PM Elaine Dorado RN Gait/Transferring 0 04/21/2022 5:00 PM Elaine Dorado RN Mental Status 0 04/21/2022 5:00 PM WOOL SUPPLIER Elaine Sanchez RN Morse Fall Risk Score (Score >= 45 places fall precaution order) 30 04/21/2022 5:00 PM Elaine Dorado RN Prior Fall Event (Autopopulated from EMR) None found 04/21/2022 5:00 PM Zia Dorado RN * BP Location Answer Date of Assessment Author Right arm 04/18/2022 8:47 AM Aracelis Gregorio NP * Alcohol Use Question Answer Date of Assessment Author Q2: How many drinks containing alcohol do you have on a typical day when you are drinking? Patient does not drink 04/21/2022 5:05 PM Elaine Dorado RN * BP Location Answer Date of Assessment Author Right arm 04/18/2022 8:47 AM Aracelis Gregorio NP documented as of this encounter Plan of Treatment Not on file documented as of this encounter Visit Diagnoses Not on filedocumented in this encounter Additional Health Concerns Infection Onset Date Last Indicated Resolved Time COVID: Suspected 04/30/2022 04/30/2022 04/30/2022 11:31 AM WOOL SUPPLIER documented as of this encounter Care Teams Auto Body Estimator Relationship Specialty Start Date End Date Srikanth Hernandez MD PCP - General Family Medicine 10/16/19 Bon Izquierdo MD Consulting Physician Medical Oncology 10/21/21 05/21/22 Estiven Dubois MD [address] [address] Consulting Physician Nephrology 10/23/21 Rebecca Zuluaga NP [address] [address] Nurse Practitioner Cardiology 12/27/21 Mathew Plummer MD [address] [facility] [address], [place] [address] Consulting Physician Interventional Cardiology 04/14/22 Srikanth Stephens MD [address] [facility] [address] [facility] [address] [place] [address] Surgeon Surgery 04/28/22 Tootie Kraft NP [address] [place] [address] Nurse Practitioner Medical Oncology 05/22/22 Minoo Mcgowan MD PhD [id number] [place] [address] Registered Nurse Vascular Surgery 01/06/24 documented as of this encounter
--- OUTSIDE RECORDS SUMMARY | 2025-03-25 08:28 | XMS_ITS ---
Author Organization [facility] [place] [place] [address] Address [address] [place] [address] Care Team Providers Care Accounts Payable Technician Name Role Phone Srikanth Hernandez MD Primary Care Prov ider Estiven Dubois MD Unavailable [phone] Rebecca Zuluaga NP Unavailable Mathew Plummer MD Unavailable + [phone] Srikanth Stephens MD Unavailable [phone] Tootie Kraft NP Unavailable [phone] Minoo Mcgowan MD PhD Unavailable Dialysis Access Sites Type Status Location Placement Date Removal Da te AV graft Active Left Upper Arm - Anterior 04/28/2022 Procedures Procedure Name Priority Date/Time Associated Diagnosis Comments EGFR STAT 12/15/2024 7:56 AM CDT POCT LIPID PANEL Routine 09/29/2024 12:1 7 PM CDT Paroxysmal atrial fibrillation (HCC) 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 Patient transferred to [facility] for further evaluation and treatment. - [...] reports a follow up appointment with his clinical auditor on Thursday. Recommend patient to take blood pressure medication at home and monitor blood pressures at home. Also advised patient to notify primary care provider/clinical auditor of elevated blood pressure for further management. [...] dialysis. Assessment & Plan (03/31/2024 4:40 PM CENTRAL SERVICE TECH): Patient with increased velocity associated with left axillary stent, fortunately asymptomatic. Will plan for left upper extremity AV fistulogram with possible intervention. Risks of the procedure including but not limited to bleeding, infection, nerve injury, stroke, , myocardial infarction communicated patient full understanding. Wished to proceed Assessment & Plan (12/29/2023 10:36 AM CDT): - CAITLINE AV fistula, dialyzes MWF at [facility] - Renal consult for inpatient HD Assessment [...] procedure. Assessment & Plan (04/14/2022 10:44 AM CENTRAL SERVICE TECH): Patient seen today for new access evaluation. Handle Assembler is Dr. Dubois. Previous vein mapping obtained [...] glipizide Assessment & Plan (04/14/2022 10:41 AM CENTRAL SERVICE TECH): History of diabetes that is being [...] week 02/07/2022 How often do you attend [facility] or zoroastrian services? Never 02/07/2022 Do you belong to any clubs o r organizations such as gnosticist groups, unions, fraternal or athletic groups, or [...] place to sleep or slept in a jail (including now)? No 02/07/2022 Personal Safety Answer Date Recorded Have you ever been in or are you currently in a harmful physical or emotional relationship or is someone making you feel afraid or unsafe? Denies 12/15/2024 Sex and Gender Information Value Date Recorded Sex Assigned at Not on file Legal Sex Male 6:58 PM CENTRAL SERVICE TECH Gender Identity Not on file Sexual [...] 25.59 12/01/2024 9:19 AM CDT Results * (ABNORMAL) eGFR (12/15/2024 7:56 AM CDT) [...] LAB BLOOD ORDERABLES Final Resul t MICHAELLE [address] [facility] Department [place] [address] * (ABNORMAL) POCT lipid panel (09/29/2024 12:17 [...] 5.6 % Estimated Average Glucose 143 mg/dL [facility] Comment: The ADA recommends reporting an estimated [...] LAB BLOOD ORDERABLES F inal Result [facility] Department [place] [address] * Hepatitis panel, acute Blood (07/08/2023 7:12 AM CENTRAL SERVICE TECH) Hep A IgM Nonreactive Nonreactive MICHAELLE Comment: [...] Nonreactive Nonreactive MICHAELLE Blood 07/08/2023 7:12 AM CENTRAL SERVICE TECH 07/08/2023 7:23 AM CENTRAL SERVICE TECH us Sameed Yecenia Ellsworth MD LAB MICROBIOLOGY - GENERA L ORDERABLES Final Result MICHAELLE [address] Department [place] [address] from Last 3 Months or Most Recently Relevant to Health Maintenance
--- OUTSIDE RECORDS SUMMARY | 2025-03-25 08:28 | XMS_ITS | Clinical Summary ---
Author Organization [facility] [address] Address [address] [place] [address] Care Team Providers Care Salvage Winder Name Role Phone Srikanth Hernandez MD Primary Care Prov ider Estiven Dubois MD Unavailable [phone] Rebecca Zuluaga NP Unavailable Mathew Plummer MD Unavailable [phone] Srikanth Stephens MD Unavailable [phone] Tootie Kraft FITTING ROOM INSPECTOR Unavailable [phone] Minoo Mcgowan MD PhD Unavailable [phone] Allergies Active Allergy Reactions Criticality Noted Date [...] of L carotid artery. Patient transferred to [facility] for further evaluation and treatment. [...] reports a follow up appointment with his material damage adjuster on Thursday. Recommend patient to take blood pressure medication at home and monitor blood pressures at home. Also advised patient to notify primary care provider/material damage adjuster of elevated blood pressure for further management. [...] dialysis. Assessment & Plan (03/31/2024 4:40 PM HYDROELECTRIC PLANT STRUCTURAL ENGINEER): Patient with increased velocity associated with left axillary stent, fortunately asymptomatic. Will plan for left upper extremity AV fistulogram with possible intervention. Risks of the procedure including but not limited to bleeding, infection, nerve injury, stroke, , myocardial infarction communicated patient full understanding. Wished to proceed Assessment & Plan (12/29/2023 10:36 AM CDT): - LUE AV fistula, dialyzes MWF at [facility] - Renal consult for inpatient HD Assessment [...] procedure. Assessment & Plan (04/14/2022 10:44 AM HYDROELECTRIC PLANT STRUCTURAL ENGINEER): Patient seen today for new access evaluation. Library Page is Dr. Dubois. Previous vein mapping obtained [...] glipizide Assessment & Plan (04/14/2022 10:41 AM HYDROELECTRIC PLANT STRUCTURAL ENGINEER): History of diabetes that is being controlled with diet and medications. Continue monitoring blood sugars carefully, following a diabetic diet and taking medications as her PCP. 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 Never 02/07/2022 Do you belong to [...] in a half-way (including now)? No 02/07/2022 Personal Safety Answer Date Recorded Have you ever been in or are you currently in a harmful physical or emotional relationship or is someone making you feel afraid or unsafe? Denies 12/15/2024 Sex and Gender Information Value Date Recorded Sex Assigned at Not on file Legal Sex Male 6:58 PM HYDROELECTRIC PLANT STRUCTURAL ENGINEER Gender Identity Not on file Sexual [...] Risk Assessment 12/15/2025 12/15/2024 eGFR 12/15/2025 12/15/2024, 1209/2023, 01/04/2024, Additional history exists Pneumococcal vaccine 65+ Completed 023, 01/28/2021, 03/03/2017 Hepatitis C Screening Completed 07/08/2023 Hepatitis B Screening Completed 09/30/2024 , 01/01/2024, 01/14/2023, Additional history exists Medical Devices Implanted Type Area Patent Law Specialist Device Identifier Shelf Expiration Date Model / Serial / Lot [employer] Device Vascular Closure Femoral Artery Bioabsorbable Dual Method Vascade 6-7fr Collagen [id number] - [id number] Implanted:Qty: 1 on 07/07/2023 by Mathew Plummer MD at [facility] Collagen Left: Common Femoral Artery [employer] 02/25/2025 [id number] / / [id number] [employer] [place] Acuseal 4-7mm 45cm Taper Graft Vascular Sterile [id number] - [id number] - [id number] Implanted:Qty: 1 on 04/28/2022 by Srikanth Stephens MD at [facility] Graft Left: Arm [employer] [id number] 05/19/2024 [id number] / [id number] / Medtronic Card Vasc Surgery 3.0 X 22mm Simon Cumming Rx Coronary Stent [id number] - [id number] Implanted:Qty: 1 on 07/07/2023 by Mathew Plummer MD at [facility] Stent Left: Circumflex Coronary Artery Medtronic Card Vasc Surgery 06/07/2025 [id number] / / [id number] Bard Peripheral Vascular Stent Graft Endovascular Arteriovenous [id number] Covera [id number] - [id number] Implanted:Qty: 1 on 01/15/2023 by Srikanth Stephens MD at [facility] Left: Arm Bard Peripheral Vascular 06/06/2024 [id number] / / [id number] Procedures Procedure Name Priority Date/Time Associated Diagnosis Comments EGFR STAT 12/15/2024 7:56 AM CDT POCT LIPID PANEL Routine 09/29/2024 12:1 7 PM CDT Paroxysmal atrial fibrillation (HCC) 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 Comment: The ADA recommends reporting [...] ORDERABLES F inal Result Performing Organization Address [facility]/ZIP Co de Phone Number MICHAELLE ESTEBAN [facility] Department [place] [address] * Hepatitis panel, acute Blood (07/08/2023 7:12 AM HYDROELECTRIC PLANT STRUCTURAL ENGINEER) Hep A IgM Nonreactive Nonreactive [facility] Comment: Interpretive Data: If Hep A IgM Ab is reported as Equivocal, a new sample should be drawn in two weeks for testing. Current interpretive data was last revised on 19. Hep B core IgM Nonreactive Nonreactive [facility] Comment: Interpretive Data If HepB Core IgM Ab is reported as Equivocal, a new sample should be drawn in two weeks for testing. Current interpretive data was last revised on 19. Hep C Ab Nonreactive Nonreactive [facility] Comment: Interpretive Data Nonreactive: Antibodies to [...] last revised on 2019. HepBsAg Nonreactive Nonreactive [facility] Blood 07/08/2023 7:12 AM HYDROELECTRIC PLANT STRUCTURAL ENGINEER 07/08/2023 7:23 AM HYDROELECTRIC PLANT STRUCTURAL ENGINEER us Ramirez Ellsworth MD LAB MICROBIOLOGY - GENERA L ORDERABLES Final Result Performing Organization Address City/[facility]/ZIP Co de Phone Number [facility] [address] Department [place] [address] from Last 3 Months or Most Recently Relevant to Health Maintenance Insurance [employer] [facility] MEDICARE ADVANTAGE [facility] MEDICARE Address: [address] [address] [place] [address] [employer] CHOICE MEDICARE PPO [employer] CHOICE MEDICARE PPO [employer] [facility] MEDICARE ADVANTAGE [facility] MEDICARE Address: [facility] [address] [place] [address] Advance Directives For more information, please contact: [phone] * Full Code (Latest Code Status on [...] 3:25 PM 02/10/2022 6:01 PM Care Teams Salvage Winder Relationship Specialty Start Date End Date Srikanth Hernandez MD PCP - General Family Medicine 10/16/19 Estiven Dubois MD [address] [address] Consulting Physician Nephrology 10/23/21 Rebecca Zuluaga NP [address] [address] Nurse Practitioner Cardiology 12/27/21 Mathew Plummer MD [address] [facility] [address], [place] [address] Consulting Physician Interventional Cardiology 04/14/22 Srikanth Stephens MD [address] [facility] [address] [facility] [address] [place] [address] Surgeon Surgery 04/28/22 Tootie Kraft NP [address] [place] [address] Nurse Practitioner Medical Oncology 05/22/22 Minoo Mcgowan MD PhD [address] [place] [address] Registered Nurse Vascular Surgery 01/06/24
[2025-03-25] MEDS: FERROUS SULFATE 325 MG TABLET PO ×2 (09:53→18:15)
[2025-03-25] MEDS: APIXABAN 5 MG TABLET PO ×2 (09:53→21:07)
[2025-03-25] MEDS: CHOLECALCIFEROL (VITAMIN D3) 25 MCG (1,000 UNITS) TABLET 50 MCG PO ×2 (09:53→18:15)
[2025-03-25] MEDS: FIDAXOMICIN 200 MG TABLET PO ×2 (09:53→21:07)
[2025-03-25] MEDS: LORATADINE 10 MG TABLET PO (09:53)
[2025-03-25] MEDS: CLOPIDOGREL BISULFATE 75 MG TABLET PO (09:53)
[2025-03-25] MEDS: VITAMIN B CMPLX/VIT C/FOLIC AC 1 CAPSULE 1 CAP PO (09:54)
[2025-03-25 11:23] LABS: Albumin Level 2.4 g/dL (3.5-5.1)
[2025-03-25 11:37] LABS: Magnesium 2.2 mg/dL (1.6-2.3)
[2025-03-25 11:45] LABS: NT Pro B Type Natriuretic Pept 27100 pg/mL (19.9-100)
[2025-03-25 12:14] LABS: Albumin Level 2.7 g/dL (3.5-5.1); Anion Gap 9 mmol/L (4-12); Blood Urea Nitrogen 49 mg/dL (9-20); Calcium 8.5 mg/dL (8.4-10.2); Carbon Dioxide 28 mmol/L (22-30); Chloride 95 mmol/L (98-107); Estimated CRCL calculation 12 ml/min; Estimated Glomerular Filt Rate 11; Glucose 73 mg/dL (65-110); Potassium 3.1 mmol/L (3.4-5.0); Sodium 132 mmol/L (137-145)
[2025-03-25] MEDS: ONDANSETRON INJ 4 MG/2 ML VIAL IV PUSH (12:23)
[2025-03-25] MEDS: ACETAMINOPHEN 325 MG TABLET 650 MG PO (12:23)
--- NOTE | 2025-03-25 15:32 | PM.IMPN ---
Progress Note: A&P Assessment and Plan (1) C. difficile colitis: Code(s): A04.72 - Enterocolitis due to Clostridium difficile, not specified as recurrent Status: Acute (2) AMS (altered mental status): Qualifiers: Altered mental status type: unspecified Qualified Code(s): R41.82 - Altered mental status, unspecified Code(s): R41.82 - Altered mental status, unspecified Status: Acute (3) Sepsis: Qualifiers: Sepsis type: sepsis due to unspecified organism Sepsis acute organ dysfunction status: with acute organ dysfunction Severe sepsis acute organ dysfunction type: encephalopathy Severe sepsis shock status: without septic shock Qualified Code(s): A41.9 - Sepsis, unspecified organism; R65.20 - Severe sepsis without septic shock; G93.41 - Metabolic encephalopathy Code(s): A41.9 - Sepsis, unspecified organism Status: Acute (4) Penile lesion: Code(s): N48.9 - Disorder of penis, unspecified Status: Acute (5) Diabetes: Qualifiers: Diabetes mellitus type: type 2 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 use Diabetes mellitus complication status: with kidney complications Diabetes mellitus complication detail: with chronic kidney disease Chronic kidney disease stage: on chronic dialysis Qualified Code(s): E11.22 - Type 2 diabetes mellitus with diabetic chronic kidney disease; N18.6 - End stage renal disease; Z99.2 - Dependence on renal dialysis Code(s): E11.9 - Type 2 diabetes mellitus without complications Status: Acute (6) Dependence on nocturnal oxygen therapy: Code(s): Z99.81 - Dependence on supplemental oxygen Status: Acute (7) Chronic anticoagulation: Code(s): Z79.01 - retirement (current) use of anticoagulants Status: Acute (8) Atrial fibrillation: Qualifiers: Atrial fibrillation type: permanent Qualified Code(s): I48.21 - Permanent atrial fibrillation Code(s): I48.91 - Unspecified atrial fibrillation Status: Acute Plan 79 y/o had been taking his Cipro and doxycycline and presented with weakness and confusion, is found to be positive with C diff has developed sepsis, being treated with Deficid 200mg q12, patient had one loose BM today, his potassium is low 2/2 diarrhea, will supplement and monitor. as patient's stools form further recommendation to follow. Patient has sepsis due to C diff colitis with recent antibiotic use. Sepsis criteria met with tachycardia, leukocytosis in the setting of colitis on imaging with borderline hypotension. Lactic acid was added but was normal but patient did have elevated procalcitonin and has significant bandemia on CBC. Will discontinue outpatient Cipro and doxycycline the patient the patient had previously been discharged drawn. Will place the patient on Dificid p.o. b.i.d.. Patient received 500 mL of isotonic fluids at 150 mL an hour. 30 mL/kilos fluid bolus not administered due to the patient's history of CHF and end-stage renal disease. Will obtain blood cultures and repeat CBC in a.m.. Patient did have some altered mental status but a patient's mentation at the time my evaluation had actually improved compared to his prior hospitalization. Altered mental status likely due to metabolic encephalopathy from acute infection and illness. However cannot her rule out some underlying mild cognitive impairment. Patient would benefit from neuro cognitive testing on discharge. Patient has penile ulceration at the meatus that was debrided during last hospitalization. There seems to be a moderate amount of cloudy white drainage less purulent in appearance than during prior hospitalization. Will hold off on any antibiotic therapy in will apply topical care with Xeroform gauze. Sheriff catheter was exchanged in the ER. Patient has indwelling catheter due to history of atonic bladder. Patient has diabetes but is currently euglycemic. Will hold oral hypoglycemic agents. Will place patient on Accu-Cheks a.c. HS and will add hypoglycemia protocol. Repeat labs in morning did demonstrate hypoglycemia with supplements provided. Patient had hypokalemia on repeat labs in a.m. with 40 mEq potassium chloride administered. Will repeat electrolyte panel daily until stable. Patient has chronic AFib but is currently rate controlled. Will continue home Eliquis and Coreg. Patient does have chronic CHF buttock currently appears intervascular volume depleted. Will hold home Lasix and will hold hydralazine given borderline hypotension. MEDICAL DECISION MAKING NARRATIVE -Spoke with the ED provider in detail regarding patient's evaluation, workup and management -Patient seen and examined at bedside -Collaborated with patient's nurse at the bedside in detail and addressed all concerns -Labs, electrolytes, radiology, investigations and test results personally reviewed and interpreted unless otherwise specified -ED/Consult/Nursing/Ancilliary notes on the chart reviewed and appreciated -Spoke with patient at bedside and diagnosis and plan of care was discussed. All questions answered. Subjective Date/time seen: 03/25/25 15:32 Interval history: Weakness and confusion Narrative: 79-year-old male well known to me from prior hospitalizations with past medical history of end-stage renal disease on hemodialysis Thursday, essential hypertension, type 2 diabetes mellitus, grade 2 diastolic dysfunction, peripheral artery disease, neurogenic bladder with chronic indwelling Sheriff catheter with necrosis of the penile meatus who presented to the ER via EMS from dialysis due to weakness and confusion. Patient was recently hospitalized 03/17/2025 through 03/19/2025 due to failure to thrive, necrosis of the tip of the penis with cystoscopy and downsizing of his Sheriff catheter with debridement of his penile meatus. He was discharged home on Cipro and doxycycline for prior culture of the meatus result from February demonstrating Serratia and MRSA. While in the ER the patient had a large incontinent bowel movement of diarrhea. The patient reports that he has been having diarrhea since the 2nd day after being discharged from the hospital. He is having numerous diarrheal stools a day. His stools are mushy and watery. He has started having fevers and chills over the last 2 days. He has had significant decrease in appetite. He reports that he feels like he has lost weight. He denies any chest pain or shortness of breath. He reports that he has feels overtly weak. He reports feeling nauseous but not having any significant vomiting. He does still produce a small amount of urine and has a Sheriff catheter in place. According to the Urology note patient had Sheriff catheter in place for about 3 weeks prior to his previous admission. In the ER CT scan demonstrated colitis and he had marked leukocytosis. Is electrolyte panel was stable. C diff PCR was found to be positive. The patient's blood pressures in the ER were soft with systolic blood pressures in the 90s and when the patient arrived to the ER his heart rate was initially in the 120s to 130s in AFib. He denies missing any medications. He has been continuing to take the Cipro and Flagyl that he was discharged on. 79 y/o had been taking his Cipro and doxycycline and presented with weakness and confusion, is found to be positive with C diff has developed sepsis, being treated with Deficid 200mg q12, patient had one loose BM today, his potassium is low 2/2 diarrhea, will supplement and monitor. as patient's stools form further recommendation to follow. Review of Systems Review of Systems: 12 systems were reviewed with pertinent positives and negatives per HPI. Except as documented in the HPI, all other systems were reviewed and are negative. Exam Narrative: Patient is comfortable, NAD HEENT: eyes are clear and none icteric LUNGS:CTA HEART: RR S1S2 ABD: BS+, Soft and nontender Lower extremities: no edema SKIN: nonjaundiced Neuro: grossly intact. Objective Data Vital Signs Vital Signs: Vital Signs - 24 hr 03/24/25 16:22 03/24/25 17:32 03/24/25 17:56 Temperature 36.6 C Pulse Rate 132 H 120 H 106 H Respiratory Rate 22 H 18 17 Blood Pressure 154/143 H 114/90 Pulse Oximetry 93 100 Oxygen Delivery Room Air 03/24/25 19:07 03/24/25 19:07 03/24/25 19:09 Temperature Pulse Rate 104 H 109 H 105 H Respiratory Rate 20 Blood Pressure 96/46 L 86/54 L Pulse Oximetry 98 Oxygen Delivery 03/24/25 19:22 03/24/25 21:39 03/24/25 22:45 Temperature 37.3 C Pulse Rate 103 H 91 95 Respiratory Rate 18 16 Blood Pressure 121/50 L 97/49 L 99/45 L Pulse Oximetry 100 97 Oxygen Delivery 03/24/25 23:30 03/25/25 00:00 03/25/25 02:00 Temperature Pulse Rate 87 93 Respiratory Rate Blood Pressure Pulse Oximetry Oxygen Delivery Room Air 03/25/25 04:00 03/25/25 04:00 03/25/25 04:20 Temperature 36.9 C Pulse Rate 99 97 Respiratory Rate 16 Blood Pressure 132/56 L Pulse Oximetry 98 Oxygen Delivery Room Air 03/25/25 06:00 03/25/25 08:00 03/25/25 08:00 Temperature 37.7 C H Pulse Rate 99 100 Respiratory Rate 16 Blood Pressure 120/48 L Pulse Oximetry 96 96 Oxygen Delivery Room Air 03/25/25 09:54 03/25/25 12:00 03/25/25 12:23 Temperature 37.7 C H 37.7 C H Pulse Rate 101 H 109 H Respiratory Rate 18 Blood Pressure 125/58 L Pulse Oximetry 97 Oxygen Delivery 03/25/25 13:20 Temperature 37.7 C H Pulse Rate Respiratory Rate Blood Pressure Pulse Oximetry Oxygen Delivery Intake/Output Intake/Output: Intake & Output 03/22/25 03/23/25 03/24/25 03/25/25 23:59 23:59 23:59 23:59 Intake Total 1462.5 1297.5 Output Total 0 20 Balance 1462.5 1277.5 Meds/Results Medications: Active Medications Generic Name Dose Route Start Last Admin Trade Name Freq PRN Reason Stop Dose Admin Acetaminophen 650 mg 03/24/25 20:52 03/25/25 12:23 Acetaminophen 325 Mg Tablet PO 650 mg Q4H PRN Administration Mild Pain (1-3) or Fever Apixaban 5 mg 03/25/25 09:00 03/25/25 09:53 Apixaban 5 Mg Tablet PO 5 mg Q12HR ALENA Administration Carvedilol 12.5 mg 03/25/25 08:00 03/25/25 09:54 Carvedilol 12.5 Mg Tablet PO 12.5 mg BIDWM ALENA Administration Clopidogrel Bisulfate 75 mg 03/25/25 09:00 03/25/25 09:53 Clopidogrel Bisulfate 75 Mg Tablet PO 75 mg DAILY ALENA Administration Dextrose 12.5 gm 03/25/25 05:22 Dextrose 50% 25 Gm/50 Ml Syringe IV PUSH PRN PRN Hypoglycemia Protocol Ferrous Sulfate 325 mg 03/25/25 09:00 03/25/25 09:53 Ferrous Sulfate 325 Mg Tablet PO 325 mg BID ALENA Administration Fidaxomicin 200 mg 03/24/25 22:00 03/25/25 09:53 Fidaxomicin 200 Mg Tablet PO 04/03/25 21:59 200 mg Q12HR ALENA Administration Glucagon 1 mg 03/25/25 05:22 Glucagon For Inj 1 Mg Vial IM PRN PRN Hypoglycemia Protocol Glucose 15 gm 03/25/25 05:22 03/25/25 05:30 Glucose Oral Gel 15 Gm Of Glucse In 37.5 Gm Tube PO 15 gm PRN PRN Administration Hypoglycemia Protocol Dextrose 1,000 mls @ 100 mls/hr 03/25/25 05:22 Dextrose 5% 1,000 Ml IVPB PRN PRN Hypoglycemia Protocol Loratadine 10 mg 03/25/25 09:00 03/25/25 09:53 Loratadine 10 Mg Tablet PO 10 mg Q48HR ALENA Administration Ondansetron HCl 4 mg 03/24/25 20:52 03/25/25 12:23 Ondansetron Inj 4 Mg/2 Ml Vial IV PUSH 4 mg Q4H PRN Administration Nausea Vitamin B Complex/Folic Acid 1 cap 03/25/25 09:00 03/25/25 09:54 Vitamin B Cmplx/Vit C/Folic Ac 1 Capsule PO 1 cap DAILY ALENA Administration Vitamin D 50 mcg 03/25/25 09:00 03/25/25 09:53 Cholecalciferol (Vitamin D3) 25 Mcg (1,000 Units) Tablet PO 50 mcg BID ALENA Administration Radiology Results: ITS Impressions Chest X-Ray 03/24/25 17:13 Impression: No acute cardiopulmonary abnormality. Abdomen/Pelvis CT 03/24/25 20:06 IMPRESSION: 1. Significant thickening of the descending, sigmoid colon and rectum, consistent with colitis, most likely infectious or inflammatory. Ischemia is less favored although not excluded. 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 2: Hypodense 2.6 cm splenic mass. Differential diagnosis includes benign etiologies such as hemangioma, hamartoma and lymphangioma versus malignant lesion such as lymphoma or metastatic disease. 3: Cholelithiasis. 4: Chronic interstitial fibrosis of the lung bases. Labs Labs: Laboratory Results - last 24 hr 03/24/25 03/24/25 03/24/25 16:41 20:15 21:48 WBC 19.6 H RBC 3.77 L Hgb 10.2 L Hct 33.0 L MCV 87.5 MCH 27.1 MCHC 30.9 L RDW 17.5 H Plt Count 226 MPV 9.1 Immature Gran % (Auto) Not Reportable Neut % (Auto) Not Reportable Lymph % (Auto) Not Reportable [place] % (Auto) Not Reportable Eos % (Auto) Not Reportable Baso % (Auto) Not Reportable Lymph # (Auto) Not Reportable [place] # (Auto) Not Reportable Eos # (Auto) Not Reportable Baso # (Auto) Not Reportable Abs Immat Gran (auto) Not Reportable Absolute Neuts (auto) Not Reportable Absolute Nucleated RBC Not Reportable Total Counted 100 Neutrophils % (Manual) 82 H Band Neutrophils % 10 H Lymphocytes % (Manual) 3 L Monocytes % (Manual) 4 Eosinophils % (Manual) 1 Nucleated RBC % Not Reportable Abs Neuts (Manual) 18.03 H Abs Lymphs (Manual) 0.58 L Abs Monocytes (Manual) 0.78 Absolute Eos (Manual) 0.19 Platelet Estimate Adequate Anisocytosis 1+ Ovalocytes Occasional Crenated Cell Occasional Schistocytes None seen Sodium 131 L Potassium 3.8 Chloride 92 L Carbon Dioxide 29 Anion Gap 10 BUN 32 H Creatinine 3.73 H Estim Creat Clear Calc 16 Estimated GFR 16 L Glucose 79 POC Capillary Glucose Lactic Acid 1.1 Calcium 8.6 Phosphorus Magnesium Total Bilirubin 0.7 AST 38 ALT 23 Alkaline Phosphatase 75 NT-Pro-B Natriuret Pep Total Protein 7.1 Albumin 3.4 L Procalcitonin 1.4 Nasal MRSA (PCR) C. difficile (PCR) Positive A* C. difficile Ag & Toxin Positive A C. difficile GDH Ag Positive A 03/24/25 03/25/25 03/25/25 23:23 03:59 04:04 WBC 17.2 H RBC 3.21 L Hgb 8.5 L Hct 28.0 L MCV 87.2 MCH 26.5 MCHC 30.4 L RDW 17.3 H Plt Count 194 MPV 9.1 Immature Gran % (Auto) Not Reportable Neut % (Auto) Not Reportable Lymph % (Auto) Not Reportable [place] % (Auto) Not Reportable Eos % (Auto) Not Reportable Baso % (Auto) Not Reportable Lymph # (Auto) Not Reportable [place] # (Auto) Not Reportable Eos # (Auto) Not Reportable Baso # (Auto) Not Reportable Abs Immat Gran (auto) Not Reportable Absolute Neuts (auto) Not Reportable Absolute Nucleated RBC Not Reportable Total Counted 100 Neutrophils % (Manual) 90 H Band Neutrophils % 3 Lymphocytes % (Manual) 5.0 L Monocytes % (Manual) 2 L Eosinophils % (Manual) Nucleated RBC % Not Reportable Abs Neuts (Manual) 15.99 H Abs Lymphs (Manual) 0.86 L Abs Monocytes (Manual) 0.34 Absolute Eos (Manual) Platelet Estimate Adequate Anisocytosis 1+ Ovalocytes Occasional Crenated Cell Schistocytes None seen Sodium 132 L Potassium 2.7 L* Chloride 93 L Carbon Dioxide 30 Anion Gap 9 BUN 41 H Creatinine 4.64 H Estim Creat Clear Calc 13 Estimated GFR 12 L Glucose 51 L* POC Capillary Glucose Lactic Acid Calcium 8.2 L Phosphorus 4.7 H 4.6 H Magnesium 2.2 Total Bilirubin AST ALT Alkaline Phosphatase NT-Pro-B Natriuret Pep Total Protein Albumin 2.4 L Procalcitonin Nasal MRSA (PCR) Not detected C. difficile (PCR) C. difficile Ag & Toxin C. difficile formerly [facility] 03/25/25 03/25/25 03/25/25 05:23 07:53 11:19 WBC RBC Hgb Hct MCV MCH MCHC RDW Plt Count MPV Immature Gran % (Auto) Neut % (Auto) Lymph % (Auto) [place] % (Auto) Eos % (Auto) Baso % (Auto) Lymph # (Auto) [place] # (Auto) Eos # (Auto) Baso # (Auto) Abs Immat Gran (auto) Absolute Neuts (auto) Absolute Nucleated RBC Total Counted Neutrophils % (Manual) Band Neutrophils % Lymphocytes % (Manual) Monocytes % (Manual) Eosinophils % (Manual) Nucleated RBC % Abs Neuts (Manual) Abs Lymphs (Manual) Abs Monocytes (Manual) Absolute Eos (Manual) Platelet Estimate Anisocytosis Ovalocytes Crenated Cell Schistocytes Sodium 132 L Potassium 3.1 L Chloride 95 L Carbon Dioxide 28 Anion Gap 9 BUN 49 H Creatinine 5.02 H Estim Creat Clear Calc 12 Estimated GFR 11 L Glucose 73 POC Capillary Glucose 62 L 76 Lactic Acid Calcium 8.5 Phosphorus 4.3 Magnesium 2.2 Total Bilirubin AST ALT Alkaline Phosphatase NT-Pro-B Natriuret Pep 13970 H Total Protein Albumin 2.7 L Procalcitonin Nasal MRSA (PCR) C. difficile (PCR) C. difficile Ag & Toxin C. difficile formerly [facility] 03/25/25 11:37 WBC RBC Hgb Hct MCV MCH MCHC RDW Plt Count MPV Immature Gran % (Auto) Neut % (Auto) Lymph % (Auto) [place] % (Auto) Eos % (Auto) Baso % (Auto) Lymph # (Auto) [place] # (Auto) Eos # (Auto) Baso # (Auto) Abs Immat Gran (auto) Absolute Neuts (auto) Absolute Nucleated RBC Total Counted Neutrophils % (Manual) Band Neutrophils % Lymphocytes % (Manual) Monocytes % (Manual) Eosinophils % (Manual) Nucleated RBC % Abs Neuts (Manual) Abs Lymphs (Manual) Abs Monocytes (Manual) Absolute Eos (Manual) Platelet Estimate Anisocytosis Ovalocytes Crenated Cell Schistocytes Sodium Potassium Chloride Carbon Dioxide Anion Gap BUN Creatinine Estim Creat Clear Calc Estimated GFR Glucose POC Capillary Glucose 93 Lactic Acid Calcium Phosphorus Magnesium Total Bilirubin AST ALT Alkaline Phosphatase NT-Pro-B Natriuret Pep Total Protein Albumin Procalcitonin Nasal MRSA (PCR) C. difficile (PCR) C. difficile Ag & Toxin C. difficile GDH Ag Quality VTE Prophylaxis VTE prophylaxis: pharmacologic ordered (Continue home Eliquis)
[2025-03-26] VITALS (20 sets, daily range): BP systolic 98–118; BP diastolic 46–60; PULSE 91–120; RESP 14; TEMP 36.6–37.5; O2SAT 95–99
--- NOTE | 2025-03-26 00:06 | PM.EVENT ---
Event Note Event Note Event Note: Bedside RN was checking on the patient when she noted projectile vomit on the patient's floor. Patient then found to be significantly altered (A/Ox0) compared to his baseline mentation level during this admission, A&Ox2-3. Initially not answer questions. Upon my arrival, patient able to answer some orientation questions. Alert to self and place. Unable to provide situational history and provided incorrect year (reported it was 2023). He is currently reporting a right frontal headache and new right-sided numbness affecting his right face and right leg. Right lower extremity weaker than the left lower extremity, however this is the patient's baseline due to her previous CVA. Plan for stat head CT and repeat stat labs including a CBC, BMP, Mag, phos. Check stat bedside glucose >> 91. No dysarthria or facial droop appreciated. EOM intact and PERRLA. Patient is chronically ill appearing on exam. Head CT completed. Per my personal review, no niraj hemorrhage or change compared to his head CT completed on 03/25. Patient is not candidate for CTA due to renal function. Appears to be returning to his baseline. Now A/Ox3 (person, place, time). EOM intact. Patient is reporting wavy lines in his vision, possibility of ocular migraine. No current complaints of sensory deficits. RLE remains weak, baseline. Will at neurological checks q.4. Patient has additionally not been eating well and has become hypoglycemic once since admission and was hypoglycemic upon arrival. Will add D5 LR at 50 mL/hour. Critical Care Time: I personally spent 35 minutes of direct patient care including (but not limited to) the physical examination, decision-making, bedside evaluation, review of medical records, review of labs and imaging, discussion with nursing staff and other providers for collaborative, critical care management of this patient.
[2025-03-26] MEDS: DEXTROSE 5%/LACTATED RINGERS 1,000 ML 50 ML IV CONT (00:50)
--- NOTE | 2025-03-26 01:13 | PC.NURSE ---
walked into pt room to do midnight vitals pt projectile vomited onto himself and floor pt head elevated and suctioned out his mouth. Paris PIZARRO came into the room to assess pt and stat head CT was ordered. once back from CT pt was cleaned up.
[2025-03-26 02:54] LABS: Hematocrit 26.0 % (42.0-52.0); Hemoglobin 8.0 g/dL (14.0-18.0); Immature Granulocyte Percent A 1.4 % (0-0.5); Lymphocytes Absolute Auto 0.40 K/mm3 (0.9-3.2); Mean Corpuscular HGB Conc 30.8 g/dl (32-36); Mean Corpuscular Hemoglobin 26.9 pg (26-34); Mean Corpuscular Volume 87.5 fl (80-100); Nucleated Red Blood Cells Absolute Auto 0.000 K/mm3 (0.0-0.012); Nucleated Red Blood Cells Perc 0.0 % (0.0-0.2); Platelet Count Result 182 k/mm3 (150-375); Red Blood Count 2.97 M/mm3 (4.6-6.20); White Blood Count 20.3 K/mm3 (4.5-10.0)
[2025-03-26 03:08] LABS: Albumin Level 2.6 g/dL (3.5-5.1); Anion Gap 12 mmol/L (4-12); Blood Urea Nitrogen 57 mg/dL (9-20); Calcium 8.3 mg/dL (8.4-10.2); Carbon Dioxide 28 mmol/L (22-30); Chloride 93 mmol/L (98-107); Estimated CRCL calculation 9 ml/min; Estimated Glomerular Filt Rate 8; Glucose 143 mg/dL (65-110); Magnesium 2.3 mg/dL (1.6-2.3); Potassium 3.1 mmol/L (3.4-5.0); Sodium 133 mmol/L (137-145)
[2025-03-26] MEDS: CHOLECALCIFEROL (VITAMIN D3) 25 MCG (1,000 UNITS) TABLET 50 MCG PO ×2 (09:49→16:14)
[2025-03-26] MEDS: APIXABAN 5 MG TABLET PO (09:50)
[2025-03-26] MEDS: FIDAXOMICIN 200 MG TABLET PO ×2 (09:50→20:07)
[2025-03-26] MEDS: CLOPIDOGREL BISULFATE 75 MG TABLET PO (09:50)
[2025-03-26] MEDS: FERROUS SULFATE 325 MG TABLET PO ×2 (09:51→16:14)
[2025-03-26] MEDS: VITAMIN B CMPLX/VIT C/FOLIC AC 1 CAPSULE 1 CAP PO (09:51)
[2025-03-26] MEDS: POTASSIUM CHLORIDE 20 MEQ ER TABLET 40 MEQ PO (11:54)
[2025-03-26] MEDS: SODIUM CHLORIDE 0.9% IV 1,000 ML 25 ML IV CONT (11:55)
[2025-03-26 14:22] LABS: Hematocrit 27.5 % (42.0-52.0); Hemoglobin 8.4 g/dL (14.0-18.0)
--- NOTE | 2025-03-26 15:43 | P.CONGI_ITS ---
Assessment and Plan Assessment and plan (1) Coffee ground emesis: Code(s): K92.0 - Hematemesis Status: Acute Assessment and Plan: will do egd tomorrow to assess if eosphagitis, ulcer, etc monitor for more signs of bleeding ppi (2) Chronic anticoagulation: Code(s): Z79.01 - [facility] (current) use of anticoagulants Status: Acute Assessment and Plan: hold eliquis ok to continue plavix (3) Sepsis: Qualifiers: Sepsis type: sepsis due to unspecified organism Sepsis acute organ dysfunction status: with acute organ dysfunction Severe sepsis acute organ dysfunction type: encephalopathy Severe sepsis shock status: without septic shock Qualified Code(s): A41.9 - Sepsis, unspecified organism; R65.20 - Severe sepsis without septic shock; G93.41 - Metabolic encephalopathy Code(s): A41.9 - Sepsis, unspecified organism Status: Acute Assessment and Plan: due to c diff colitis- recently received abx for uti (4) C. 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 (7) AMS (altered mental status): Qualifiers: Altered mental status type: unspecified Qualified Code(s): R41.82 - Altered mental status, unspecified Code(s): R41.82 - Altered mental status, unspecified Status: Acute Assessment and Plan: resolved (8) Chronic combined systolic and diastolic CHF (congestive heart failure): Code(s): I50.42 - Chronic combined systolic (congestive) and diastolic (congestive) heart failure Status: Chronic (9) Negron catheter in place: Code(s): Z97.8 - Presence of other specified devices Status: Acute GI Consult Note Consult date/time: 03/26/25 15:43 Reason for consult: coffee ground emesis, c diff colitis HPI: prior hospitalizations with past medical with history of end-stage renal disease on hemodialysis Thursday, essential hypertension, type 2 diabetes mellitus, grade 2 diastolic dysfunction, peripheral artery disease, neurogenic bladder with chronic indwelling Negrno catheter with necrosis of the penile meatus with recent hospitalization among other things with uti on antibiotics and just sent home 6 days ago. Here via EMS from dialysis due to weakness and confusion. Patient was recently hospitalized 03/17/2025 through 03/19/2025 due to failure to thrive, necrosis of the tip of the penis with cystoscopy and downsizing of his Negron catheter with debridement of his penile meatus. He was discharged home on Cipro and doxycycline. He had large incontinent bowel movement of diarrhea and reports diarrhea for few days, CT scan reviewed and noted colitis, C diff positive and started on dificid. He also reports fevers and chills over the last 2 days and decrease in appetite with lost weight. ER also noted marked leukocytosis. Also nausea with coffee ground emesis, he is on blood thinners. He says that had EGD in his 20's with ulcer. Review of Systems 2 Constitutional: Constitutional: Reports chills and Reports lethargy Eyes: Eyes: Denies blurry vision ENT: Reports Normal hearing present Cardiovascular: Cardiovascular: Denies chest pain Respiratory: Respiratory: Denies cough Gastrointestinal: Gastrointestinal: Reports nausea and Reports vomiting Genitourinary: Comments: negron Musculoskeletal: Musculoskeletal: Denies neck pain Integumentary/Breasts: Skin/Breast: Denies rash Neurologic: Reports confusion Psychiatric: Psychiatric: Denies homicidal ideation [facility] Past Medical History Medical History (Updated 03/26/25 @ 15:49 by Wilfrido Bowling MD) Coffee ground emesis Atrial fibrillation cardoversion 12/27/21 Dependence on nocturnal oxygen therapy Asymptomatic stenosis of left carotid artery Hemiparesis affecting right side as late effect of cerebrovascular accident Pulmonary hypertension Diabetic neuropathy Diabetic retinopathy Pulmonary hypertension Combined systolic and diastolic congestive heart failure Echocardiogram 10/2021: Mild concentric left ventricular hypertrophy, moderate left ventricular enlargement, moderate global left ventricular systolic dysfunction with EF of 30%, diastolic dysfunction, severe left atrial enlargement, mild right atrial enlargement, mild aortic valve regurgitation, moderate pulmonary hypertension with RVSP of 53, moderate tricuspid regurgitation End-stage renal disease Hemodialysis started June 2022; managed by Dr. 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 Abnormal thumb on the left hand Anemia of chronic disease Allergic rhinitis Chronic sinusitis Eczema Ulcer Hyperlipidemia Surgical History Surgical History Status post creation of arteriovenous fistula Left upper arm Status post cataract extraction of both eyes with insertion of intraocular lens Family History Family History Father Lung cancer Daughter Chronic lung disease Morbid obesity Grandparent Asthma Mother Hypertension Other Diabetes mellitus Heart disease Malignant neoplasm of prostate Social History Social History (Updated 03/25/25 @ 05:33 by Rebecca Marcelino DO) Social History: The patient lives with his until recent hospitalization. After that hospitalization the patient's was discharged to her daughter's home and his is currently on hospice (March 2025). The patient's daughter and son-in-law are currently living with him and helping him with his daily cares. status: Full code Surrogate decision maker: Catie Lynne (daughter) Smoking status: Never smoker Smokeless tobacco user: chewing tobacco Second hand tobacco smoke exposure: No Alcohol intake: former Alcohol use details: He reports that he drank heavily until 1975 when he found [facility]. Substance use: never Substance use type: does not use Do You Feel Safe in your Home?: Yes Lack of Transportation: No Lack of Food: Never True Current Housing: I Have Housing Concerned About Future Housing: No Difficulty Paying Gas/Electric Bills: No Difficulty Paying for Meds: No Currently Unemployed: No Education: High School Diploma/GED Difficulty w/ Childcare or Family Care: No Living arrangements: with family Additional living arrangements comments: He and his have been since 1975. In his had children from separate marriages. He had 1 daughter who of morbid obesity and chronic lung disease. 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 Gender identity (if verbalized by the patient): Male Sexual Orientation (if Verbalized by the Patient): Straight or Heterosexual Spiritual care concerns: No Agree to blood products: Yes Meds Home Medications and Allergies Home Medications ?Medication ?Instructions ?Recorded ?Confirmed ?Type ferrous sulfate 325 mg (65 mg 325 mg PO BID 01/10/22 1 05/24/24 History iron) tablet (Iron (ferrous sulfate)) apixaban 5 mg tablet (Eliquis) 5 mg PO BID 01/11/22 History blood-glucose meter (Complete Network TechnologyTouch #1 ea 01/22/22 03/24/25 Rx Ultra2 Meter kit) clopidogrel 75 mg tablet 75 mg PO DAILY 12/10/2312/09 History loratadine 10 mg capsule 10 mg PO EVERY OTHER DAY 03/24/25 History rosuvastatin 10 mg tablet 10 mg PO DAILY 01/06/2412/09 History cholecalciferol (vitamin D3) 50 50 mcg PO BID #30 tabs 01/17/24 03/24/25 Rx mcg (2,000 unit) tablet coenzyme [id number] E 100 mg-100 1 cap PO DAILY 01/2003/24/25 History unit capsule carvedilol 12.5 mg tablet See Rx Instructions .Route 0 08/29/24 03/24/25 Rx .COMPLEX #180 tabs blood sugar diagnostic (Accu-Chek #100 ea 10/03/2412/09 Rx Guide test strips) blood-glucose meter (Accu-Chek #1 ea 10/03/24 03/24/25 Rx Guide Me Glucose Meter) lancets 30 gauge (OneTouch Delica #100 ea 12/26/2412/09 Rx Plus Lancet) glipizide 5 mg tablet See Rx Instructions .Route 0 01/12/25 03/24/25 Rx .COMPLEX #180 tabs vitamin B complex and vitamin C See Rx Instructions .R oute 01/12/25 03/24/25 Rx no.20-folic acid 1 mg capsule .COMPLEX #90 caps (Triphrocaps) hydralazine 25 mg tablet 50 mg PO BID 03/15/25 History ciprofloxacin HCl 750 mg tablet 750 mg PO Q12H #14 tab s 03/19/25 03/24/25 Rx doxycycline hyclate 100 mg tablet 100 mg PO BID #14 ta bs 03/19/25 03/24/25 Rx furosemide 40 mg tablet See Rx Instructions .Route 1 05/24/24 03/24/25 Rx .COMPLEX #180 tabs Allergies Allergy/AdvReac Type Severity Reaction Status Date / Time Sulfa (Sulfonamide Allergy Unknown Rash,Unknow Verified 03/24/25 19:01 Antibiotics) n,Unknown,R isaiah,Rash,Un known,Unkno wn,Rash sitagliptin (From [facility]) Allergy Rash Verified 03/24/25 19:01 Tea Allergy Nausea and Uncoded 03/02/25 08:47 Vomiting Vital Signs Vital Signs - 24 hr 03/25/25 16:00 03/25/25 16:00 03/25/25 18:00 Temperature 99.3 F Pulse Rate 101 H 94 98 Respiratory Rate 18 Blood Pressure 108/47 L Pulse Oximetry 98 Oxygen Delivery 03/25/25 18:15 03/25/25 20:00 03/25/25 20:00 Temperature 99.1 F Pulse Rate 104 H 113 H 107 H Respiratory Rate 18 Blood Pressure 125/48 L Pulse Oximetry 94 Oxygen Delivery 03/25/25 22:00 03/26/25 00:00 03/26/25 00:00 Temperature 99.5 F Pulse Rate 124 H 111 H 120 H Respiratory Rate 14 Blood Pressure 106/47 L Pulse Oximetry 95 Oxygen Delivery 03/26/25 02:00 03/26/25 03:08 03/26/25 03:36 Temperature 99.4 F Pulse Rate 111 H 98 100 Respiratory Rate 14 Blood Pressure 98/46 L Pulse Oximetry 97 Oxygen Delivery Room Air 03/26/25 04:00 03/26/25 06:00 03/26/25 07:58 Temperature 98 F Pulse Rate 102 H 91 100 Respiratory Rate 14 Blood Pressure 118/58 L Pulse Oximetry 99 Oxygen Delivery 03/26/25 08:00 03/26/25 09:50 03/26/25 10:00 Temperature Pulse Rate 99 96 100 Respiratory Rate Blood Pressure Pulse Oximetry Oxygen Delivery 03/26/25 11:45 03/26/25 12:00 03/26/25 14:00 Temperature 97.9 F Pulse Rate 101 H 94 100 Respiratory Rate 14 Blood Pressure 115/50 L Pulse Oximetry 98 Oxygen Delivery Exam 2 Narrative: Weight 76.5 kg BMI 24.2 Const: Other: Acutely ill-appearing, well-nourished, debilitated Neck: Neck: supple Resp: Effort & Inspection: normal respiratory effort Cardio: Rhythm: abnormal rhythm irregularly irregular GI: GI Palp: Yes Soft to palpation and No Tenderness to palpation present (GI) Auscultation: normal bowel sounds : Other: Negron catheter in place Skin: General skin exam: normal color Neuro: Speech: normal speech Other: Patient is alert orient x4 Extrem: General: normal to inspection Psych: Affect: normal affect Results Labs 03/26/25 14:03 03/26/25 02:45 Labs: Short CBC 03/26/25 03/26/25 03/26/25 Range/Units 02:45 02:45 02:45 WBC Cancelled 20.3 H Hgb Cancelled 8.0 L Hct Cancelled Plt Count 03/26/25 03/26/25 03/26/25 Range/Units 02:45 02:45 14:03 WBC Hgb 8.4 L Hct 26.0 L 27.5 L Plt Count Cancelled 182 BMP 03/26/25 03/26/25 02:44 02:45 Sodium Cancelled 133 L Potassium Cancelled 3.1 L Chloride Cancelled 93 L Carbon Dioxide Cancelled 28 BUN Cancelled 57 H Creatinine Cancelled 6.47 H Glucose Cancelled 143 H Calcium Cancelled 8.3 L Liver Function 03/26/25 Range/Units 02:45 Albumin 2.6 L (3.5-5.1) g/dL
[2025-03-26] MEDS: DEXTROSE 5%/LACTATED RINGERS 1,000 ML 75 ML IV CONT (16:13)
[2025-03-26] MEDS: ONDANSETRON INJ 4 MG/2 ML VIAL IV PUSH (16:14)
--- NOTE | 2025-03-26 16:36 | P.PNIM_ITS ---
Progress Note: A&P Assessment and Plan (1) C. difficile colitis: Code(s): A04.72 - Enterocolitis due to Clostridium difficile, not specified as recurrent Status: Acute (2) AMS (altered mental status): Qualifiers: Altered mental status type: unspecified Qualified Code(s): R41.82 - Altered mental status, unspecified Code(s): R41.82 - Altered mental status, unspecified Status: Acute (3) Sepsis: Qualifiers: Sepsis type: sepsis due to unspecified organism Sepsis acute organ dysfunction status: with acute organ dysfunction Severe sepsis acute organ dysfunction type: encephalopathy Severe sepsis shock status: without septic shock Qualified Code(s): A41.9 - Sepsis, unspecified organism; R65.20 - Severe sepsis without septic shock; G93.41 - Metabolic encephalopathy Code(s): A41.9 - Sepsis, unspecified organism Status: Acute (4) Penile lesion: Code(s): N48.9 - Disorder of penis, unspecified Status: Acute (5) Diabetes: Qualifiers: Diabetes mellitus type: type 2 Diabetes mellitus terminal clerk insulin use: without terminal clerk use Diabetes mellitus complication status: with kidney complications Diabetes mellitus complication detail: with chronic kidney disease Chronic kidney disease stage: on chronic dialysis Qualified Code(s): E11.22 - Type 2 diabetes mellitus with diabetic chronic kidney disease; N18.6 - End stage renal disease; Z99.2 - Dependence on renal dialysis Code(s): E11.9 - Type 2 diabetes mellitus without complications Status: Acute (6) Dependence on nocturnal oxygen therapy: Code(s): Z99.81 - Dependence on supplemental oxygen Status: Acute (7) Chronic anticoagulation: Code(s): Z79.01 - care home (current) use of anticoagulants Status: Acute (8) Atrial fibrillation: Qualifiers: Atrial fibrillation type: permanent Qualified Code(s): I48.21 - Permanent atrial fibrillation Code(s): I48.91 - Unspecified atrial fibrillation Status: Acute Plan 79 y/o had been taking his Cipro and doxycycline and presented with weakness and confusion, is found to be positive with C diff has developed sepsis, being treated with Deficid 200mg q12, patient had one loose BM today, his potassium is low 2/2 diarrhea, will supplement and monitor. as patient's stools form further recommendation to follow. patient remains clinically stable will CPM Patient has sepsis due to C diff colitis with recent antibiotic use. Sepsis criteria met with tachycardia, leukocytosis in the setting of colitis on imaging with borderline hypotension. Lactic acid was added but was normal but patient did have elevated procalcitonin and has significant bandemia on CBC. Will discontinue outpatient Cipro and doxycycline the patient the patient had previously been discharged drawn. Will place the patient on Dificid p.o. b.i.d.. Patient received 500 mL of isotonic fluids at 150 mL an hour. 30 mL/kilos fluid bolus not administered due to the patient's history of CHF and end-stage renal disease. Will obtain blood cultures and repeat CBC in a.m.. Patient did have some altered mental status but a patient's mentation at the time my evaluation had actually improved compared to his prior hospitalization. Altered mental status likely due to metabolic encephalopathy from acute infection and illness. However cannot her rule out some underlying mild cognitive impairment. Patient would benefit from neuro cognitive testing on discharge. Patient has penile ulceration at the meatus that was debrided during last hospitalization. There seems to be a moderate amount of cloudy white drainage less purulent in appearance than during prior hospitalization. Will hold off on any antibiotic therapy in will apply topical care with Xeroform gauze. Sheriff catheter was exchanged in the ER. Patient has indwelling catheter due to history of atonic bladder. Patient has diabetes but is currently euglycemic. Will hold oral hypoglycemic agents. Will place patient on Accu-Cheks a.c. HS and will add hypoglycemia protocol. Repeat labs in morning did demonstrate hypoglycemia with supplements provided. Patient had hypokalemia on repeat labs in a.m. with 40 mEq potassium chloride administered. Will repeat electrolyte panel daily until stable. Patient has chronic AFib but is currently rate controlled. Will continue home Eliquis and Coreg. Patient does have chronic CHF buttock currently appears intervascular volume depleted. Will hold home Lasix and will hold hydralazine given borderline hypotension. Subjective Date/time seen: 03/26/25 16:36 Interval history: Weakness and confusion Narrative: 79-year-old male well known to me from prior hospitalizations with past medical history of end-stage renal disease on hemodialysis Thursday, essential hypertension, type 2 diabetes mellitus, grade 2 diastolic dysfunction, peripheral artery disease, neurogenic bladder with chronic indwelling Sheriff catheter with necrosis of the penile meatus who presented to the ER via EMS from dialysis due to weakness and confusion. Patient was recently hospitalized 03/17/2025 through 03/19/2025 due to failure to thrive, necrosis of the tip of the penis with cystoscopy and downsizing of his Sheriff catheter with debridement of his penile meatus. He was discharged home on Cipro and doxycycline for prior culture of the meatus result from February demonstrating Serratia and MRSA. While in the ER the patient had a large incontinent bowel movement of diarrhea. The patient reports that he has been having diarrhea since the 2nd day after being discharged from the hospital. He is having numerous diarrheal stools a day. His stools are mushy and watery. He has started having fevers and chills over the last 2 days. He has had significant decrease in appetite. He reports that he feels like he has lost weight. He denies any chest pain or shortness of breath. He reports that he has feels overtly weak. He reports feeling nauseous but not having any significant vomiting. He does still produce a small amount of urine and has a Sheriff catheter in place. According to the Urology note patient had Sheriff catheter in place for about 3 weeks prior to his previous admission. In the ER CT scan demonstrated colitis and he had marked leukocytosis. Is electrolyte panel was stable. C diff PCR was found to be positive. The patient's blood pressures in the ER were soft with systolic blood pressures in the 90s and when the patient arrived to the ER his heart rate was initially in the 120s to 130s in AFib. He denies missing any medications. He has been continuing to take the Cipro and Flagyl that he was discharged on. 79 y/o had been taking his Cipro and doxycycline and presented with weakness and confusion, is found to be positive with C diff has developed sepsis, being treated with Deficid 200mg q12, patient had one loose BM today, his potassium is low 2/2 diarrhea, will supplement and monitor. as patient's stools form further recommendation to follow. patient remains clinically stable will CPM Review of Systems Review of Systems: 12 systems were reviewed with pertinent positives and negatives per HPI. Except as documented in the HPI, all other systems were reviewed and are negative. Exam Narrative: Patient is comfortable, NAD HEENT: eyes are clear and none icteric LUNGS:CTA HEART: RR S1S2 ABD: BS+, Soft and nontender Lower extremities: no edema SKIN: nonjaundiced Neuro: grossly intact. Objective Data Vital Signs Vital Signs: Vital Signs - 24 hr 03/25/25 18:00 03/25/25 18:15 03/25/25 20:00 Temperature 37.3 C Pulse Rate 98 104 H 113 H Respiratory Rate 18 Blood Pressure 125/48 L Pulse Oximetry 94 Oxygen Delivery 03/25/25 20:00 03/25/25 22:00 03/26/25 00:00 Temperature 37.5 C Pulse Rate 107 H 124 H 111 H Respiratory Rate 14 Blood Pressure 106/47 L Pulse Oximetry 95 Oxygen Delivery 03/26/25 00:00 03/26/25 02:00 03/26/25 03:08 Temperature Pulse Rate 120 H 111 H 98 Respiratory Rate Blood Pressure Pulse Oximetry Oxygen Delivery Room Air 03/26/25 03:36 03/26/25 04:00 03/26/25 06:00 Temperature 37.4 C Pulse Rate 100 102 H 91 Respiratory Rate 14 Blood Pressure 98/46 L Pulse Oximetry 97 Oxygen Delivery 03/26/25 07:58 03/26/25 08:00 03/26/25 09:50 Temperature 36.6 C Pulse Rate 100 99 96 Respiratory Rate 14 Blood Pressure 118/58 L Pulse Oximetry 99 Oxygen Delivery 03/26/25 10:00 03/26/25 11:45 03/26/25 12:00 Temperature 36.6 C Pulse Rate 100 101 H 94 Respiratory Rate 14 Blood Pressure 115/50 L Pulse Oximetry 98 Oxygen Delivery 03/26/25 14:00 03/26/25 15:55 03/26/25 16:14 Temperature 36.6 C Pulse Rate 100 110 H 101 H Respiratory Rate 14 Blood Pressure 113/51 L Pulse Oximetry 95 Oxygen Delivery Intake/Output Intake/Output: Intake & Output 03/23/25 03/24/25 03/25/25 03/26/25 23:59 23:59 23:59 23:59 Intake Total 1462.5 1467.5 855.0 Output Total 0 95 10 Balance 1462.5 1372.5 845.0 Meds/Results Medications: Active Medications Generic Name Dose Route Start Last Admin Trade Name Freq PRN Reason Stop Dose Admin Acetaminophen 650 mg 03/24/25 20:52 03/25/25 12:23 Acetaminophen 325 Mg Tablet PO 650 mg Q4H PRN Administration Mild Pain (1-3) or Fever Apixaban 5 mg 03/25/25 09:00 03/26/25 09:50 Apixaban 5 Mg Tablet PO 5 mg On Hold: 03/26/25 15:42 Q12HR ALENA Administration Carvedilol 12.5 mg 03/25/25 08:00 03/26/25 16:14 Carvedilol 12.5 Mg Tablet PO 12.5 mg BIDWM ALENA Administration Clopidogrel Bisulfate 75 mg 03/25/25 09:00 03/26/25 09:50 Clopidogrel Bisulfate 75 Mg Tablet PO 75 mg DAILY ALENA Administration Dextrose 12.5 gm 03/25/25 05:22 Dextrose 50% 25 Gm/50 Ml Syringe IV PUSH PRN PRN Hypoglycemia Protocol Ferrous Sulfate 325 mg 03/25/25 09:00 03/26/25 16:14 Ferrous Sulfate 325 Mg Tablet PO 325 mg BID ALENA Administration Fidaxomicin 200 mg 03/24/25 22:00 03/26/25 09:50 Fidaxomicin 200 Mg Tablet PO 04/03/25 21:59 200 mg Q12HR ALENA Administration Glucagon 1 mg 03/25/25 05:22 Glucagon For Inj 1 Mg Vial IM PRN PRN Hypoglycemia Protocol Glucose 15 gm 03/25/25 05:22 03/25/25 05:30 Glucose Oral Gel 15 Gm Of Glucse In 37.5 Gm Tube PO 15 gm PRN PRN Administration Hypoglycemia Protocol Dextrose 1,000 mls @ 100 mls/hr 03/25/25 05:22 Dextrose 5% 1,000 Ml IVPB PRN PRN Hypoglycemia Protocol Dextrose/Lactated Ringer's 1,000 mls @ 75 mls/hr 03/26/25 00:35 03/26/25 16:13 Dextrose 5%/Lactated Ringers IV CONT 75 mls/hr .[id number] ALENA Administration Sodium Chloride 1,000 mls @ 25 mls/hr 03/26/25 11:30 03/26/25 11:55 Normal Saline Iv IV CONT 25 mls/hr .Q24H ALENA Administration Loratadine 10 mg 03/25/25 09:00 03/25/25 09:53 Loratadine 10 Mg Tablet PO 10 mg Q48HR ALENA Administration Ondansetron HCl 4 mg 03/24/25 20:52 11/09/25 16:14 Ondansetron Inj 4 Mg/2 Ml Vial IV PUSH 4 mg Q4H PRN Administration Nausea Pantoprazole Sodium 40 mg 03/27/25 09:00 Pantoprazole Sodium Iv 40 Mg Vial IV PUSH QAM [facility] Vitamin B Complex/Folic Acid 1 cap 03/25/25 09:00 03/26/25 09:51 Vitamin B Cmplx/Vit C/Folic Ac 1 Capsule PO 1 cap DAILY ALENA Administration Vitamin D 50 mcg 03/25/25 09:00 03/26/25 16:14 Cholecalciferol (Vitamin D3) 25 Mcg (1,000 Units) Tablet PO 50 mcg BID ALENA Administration Radiology Results: ITS Impressions Chest X-Ray 03/24/25 17:13 Impression: No acute cardiopulmonary abnormality. Abdomen/Pelvis CT 03/24/25 20:06 IMPRESSION: 1. Significant thickening of the descending, sigmoid colon and rectum, consistent with colitis, most likely infectious or inflammatory. Ischemia is less favored although not excluded. 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 2: Hypodense 2.6 cm splenic mass. Differential diagnosis includes benign e tiologies such as hemangioma, hamartoma and lymphangioma versus malignant lesion such as lymphoma or metastatic disease. 3: Cholelithiasis. 4: Chronic interstitial fibrosis of the lung bases. Head CT 03/26/25 07:25 IMPRESSION: 1. No acute intracranial findings. Labs Labs: Laboratory Results - last 24 hr 03/25/25 03/25/25 03/25/25 20:40 21:46 22:29 WBC RBC Hgb Hct MCV MCH MCHC RDW Plt Count MPV Immature Gran % (Auto) Neut % (Auto) Lymph % (Auto) [place] % (Auto) Eos % (Auto) Baso % (Auto) Lymph # (Auto) [place] # (Auto) Eos # (Auto) Baso # (Auto) Abs Immat Gran (auto) Absolute Neuts (auto) Absolute Nucleated RBC Nucleated RBC % % Immature Plt Fraction Sodium Potassium Chloride Carbon Dioxide Anion Gap BUN Creatinine Estim Creat Clear Calc Estimated GFR Glucose POC Capillary Glucose 69 64 L 70 Calcium Phosphorus Magnesium Albumin 03/25/25 03/26/25 03/26/25 23:45 02:44 02:45 WBC Cancelled RBC Hgb Hct MCV MCH MCHC RDW Plt Count MPV Immature Gran % (Auto) Neut % (Auto) Lymph % (Auto) [place] % (Auto) Eos % (Auto) Baso % (Auto) Lymph # (Auto) [place] # (Auto) Eos # (Auto) Baso # (Auto) Abs Immat Gran (auto) Absolute Neuts (auto) Absolute Nucleated RBC Nucleated RBC % % Immature Plt Fraction Sodium Cancelled Potassium Cancelled Chloride Cancelled Carbon Dioxide Cancelled Anion Gap Cancelled BUN Cancelled Creatinine Cancelled Estim Creat Clear Calc Cancelled Estimated GFR Cancelled Glucose Cancelled POC Capillary Glucose 91 Calcium Cancelled Phosphorus Cancelled Magnesium Cancelled Albumin 03/26/25 03/26/25 03/26/25 02:45 02:45 02:45 WBC 20.3 H RBC Cancelled 2.97 L Hgb Cancelled 8.0 L Hct Cancelled MCV MCH MCHC RDW Plt Count MPV Immature Gran % (Auto) Neut % (Auto) Lymph % (Auto) [place] % (Auto) Eos % (Auto) Baso % (Auto) Lymph # (Auto) [place] # (Auto) Eos # (Auto) Baso # (Auto) Abs Immat Gran (auto) Absolute Neuts (auto) Absolute Nucleated RBC Nucleated RBC % % Immature Plt Fraction Sodium Potassium Chloride Carbon Dioxide Anion Gap BUN Creatinine Estim Creat Clear Calc Estimated GFR Glucose POC Capillary Glucose Calcium Phosphorus Magnesium Albumin 03/26/25 03/26/25 03/26/25 02:45 02:45 02:45 WBC RBC Hgb Hct 26.0 L MCV Cancelled 87.5 MCH Cancelled 26.9 MCHC Cancelled RDW Plt Count MPV Immature Gran % (Auto) Neut % (Auto) Lymph % (Auto) [place] % (Auto) Eos % (Auto) Baso % (Auto) Lymph # (Auto) [place] # (Auto) Eos # (Auto) Baso # (Auto) Abs Immat Gran (auto) Absolute Neuts (auto) Absolute Nucleated RBC Nucleated RBC % % Immature Plt Fraction Sodium Potassium Chloride Carbon Dioxide Anion Gap BUN Creatinine Estim Creat Clear Calc Estimated GFR Glucose POC Capillary Glucose Calcium Phosphorus Magnesium Albumin 03/26/25 03/26/25 03/26/25 02:45 02:45 02:45 WBC RBC Hgb Hct MCV MCH MCHC 30.8 L RDW Cancelled 17.7 H Plt Count Cancelled 182 MPV Cancelled Immature Gran % (Auto) Neut % (Auto) Lymph % (Auto) [place] % (Auto) Eos % (Auto) Baso % (Auto) Lymph # (Auto) [place] # (Auto) Eos # (Auto) Baso # (Auto) Abs Immat Gran (auto) Absolute Neuts (auto) Absolute Nucleated RBC Nucleated RBC % % Immature Plt Fraction Sodium Potassium Chloride Carbon Dioxide Anion Gap BUN Creatinine Estim Creat Clear Calc Estimated GFR Glucose POC Capillary Glucose Calcium Phosphorus Magnesium Albumin 03/26/25 03/26/25 03/26/25 02:45 07:14 11:01 WBC RBC Hgb Hct MCV MCH MCHC RDW Plt Count MPV 9.0 Immature Gran % (Auto) 1.4 H Neut % (Auto) 91.0 H Lymph % (Auto) 2.0 L [place] % (Auto) 4.9 Eos % (Auto) 0.3 Baso % (Auto) 0.4 Lymph # (Auto) 0.40 L [place] # (Auto) 1.0 H Eos # (Auto) 0.1 Baso # (Auto) 0.1 Abs Immat Gran (auto) 0.29 H Absolute Neuts (auto) 18.5 H Absolute Nucleated RBC 0.000 Nucleated RBC % 0.0 % Immature Plt Fraction Cancelled Sodium 133 L Potassium 3.1 L Chloride 93 L Carbon Dioxide 28 Anion Gap 12 BUN 57 H Creatinine 6.47 H Estim Creat Clear Calc 9 Estimated GFR 8 L Glucose 143 H POC Capillary Glucose 188 H 186 H Calcium 8.3 L Phosphorus 5.1 H Magnesium 2.3 Albumin 2.6 L 03/26/25 03/26/25 14:03 15:47 WBC RBC Hgb 8.4 L Hct 27.5 L MCV MCH MCHC RDW Plt Count MPV Immature Gran % (Auto) Neut % (Auto) Lymph % (Auto) [place] % (Auto) Eos % (Auto) Baso % (Auto) Lymph # (Auto) [place] # (Auto) Eos # (Auto) Baso # (Auto) Abs Immat Gran (auto) Absolute Neuts (auto) Absolute Nucleated RBC Nucleated RBC % % Immature Plt Fraction Sodium Potassium Chloride Carbon Dioxide Anion Gap BUN Creatinine Estim Creat Clear Calc Estimated GFR Glucose POC Capillary Glucose 211 H Calcium Phosphorus Magnesium Albumin Quality VTE Prophylaxis VTE prophylaxis: pharmacologic ordered (Continue home Eliquis)
[2025-03-26] MEDS: INSULIN ASPART (*BKC) 100 UNITS/ML SUB-Q (16:58)
[2025-03-26] MEDS: FUROSEMIDE INJ 40 MG/4 ML VIAL 20 MG IV PUSH (18:37)
[2025-03-27] VITALS (19 sets, daily range): BP systolic 85–124; BP diastolic 38–56; PULSE 88–110; RESP 14–20; TEMP 36.6–37.3; O2SAT 93–100; BMI 24.3
[2025-03-27 04:43] LABS: Hematocrit 25.6 % (42.0-52.0); Hemoglobin 8.0 g/dL (14.0-18.0); Mean Corpuscular HGB Conc 31.3 g/dl (32-36); Mean Corpuscular Hemoglobin 26.9 pg (26-34); Mean Corpuscular Volume 86.2 fl (80-100); Platelet Count Result 199 k/mm3 (150-375); Red Blood Count 2.97 M/mm3 (4.6-6.20); White Blood Count 15.8 K/mm3 (4.5-10.0)
[2025-03-27 05:09] LABS: Albumin Level 2.3 g/dL (3.5-5.1); Anion Gap 8 mmol/L (4-12); Blood Urea Nitrogen 78 mg/dL (9-20); Calcium 8.0 mg/dL (8.4-10.2); Carbon Dioxide 29 mmol/L (22-30); Chloride 95 mmol/L (98-107); Estimated CRCL calculation 8 ml/min; Estimated Glomerular Filt Rate 7; Glucose 150 mg/dL (65-110); Magnesium 2.3 mg/dL (1.6-2.3); Potassium 3.4 mmol/L (3.4-5.0); Sodium 132 mmol/L (137-145)
[2025-03-27] MEDS: VITAMIN B CMPLX/VIT C/FOLIC AC 1 CAPSULE 1 CAP PO (08:42)
[2025-03-27] MEDS: FERROUS SULFATE 325 MG TABLET PO ×2 (08:42→18:42)
[2025-03-27] MEDS: FIDAXOMICIN 200 MG TABLET PO ×2 (08:42→20:35)
[2025-03-27] MEDS: LORATADINE 10 MG TABLET PO (08:42)
[2025-03-27] MEDS: CHOLECALCIFEROL (VITAMIN D3) 25 MCG (1,000 UNITS) TABLET 50 MCG PO ×2 (08:42→18:42)
[2025-03-27] MEDS: CLOPIDOGREL BISULFATE 75 MG TABLET PO (08:42)
[2025-03-27] MEDS: POTASSIUM CHLORIDE INJ 40 MEQ in SODIUM CHLORIDE 0.9% IV 500 ML 130 MEQ IVPB (09:10)
--- NOTE | 2025-03-27 12:46 | WNDPHOTO ---
PHOTO ONLY - See Nursing Notes and/ or assessments for documentation.
[2025-03-27] MEDS: PANTOPRAZOLE SODIUM IV 40 MG VIAL IV PUSH ×2 (13:12)
--- NOTE | 2025-03-27 13:41 | WPDANESEPPF ---
Anes - Initial Pre Proc Eval Procedure: Operation Date: 03/27/25 15:00 Proposed Procedures p Esophagogastroduodenoscopy - Wilfrido Bowling MD Date/Time: 03/27/25 13:41 Surgeon: Rebecca Marcelino DO Pre Op Diagnosis: colitis,esrd,safib Patient Data Age: 79 Gender: M Height: 1.78 m Weight: 77.1 kg Last Vital Signs Temp 36.6 C 03/27/25 11:56 Pulse 102 H 03/27/25 11:58 Resp 14 03/27/25 11:56 BP 118/56 L 03/27/25 11:56 Pulse Ox 98 03/27/25 11:56 O2 Del Method Room Air 03/27/25 03:32 Allergies Allergy/AdvReac Type Severity Reaction Status Date / Time Sulfa (Sulfonamide Allergy Unknown Rash,Unknow Verified 03/24/25 19:01 Antibiotics) n,Unknown,R isaiah,Rash,Un known,Unkno wn,Rash sitagliptin (From [facility]) Allergy Rash Verified 03/24/25 19:01 Tea Allergy Nausea and Uncoded 03/02/25 08:47 Vomiting Home Medications ?Medication ?Instructions ?Recorded ?Confirmed ?Type ferrous sulfate 325 mg (65 mg 325 mg PO BID 01/10/22 03/24/25 History iron) tablet (Iron (ferrous sulfate)) apixaban 5 mg tablet (Eliquis) 5 mg PO BID 01/11/22 03/24/25 History blood-glucose meter (OneTouch #1 ea 01/22/22 03/24/25 Rx Ultra2 Meter kit) clopidogrel 75 mg tablet 75 mg PO DAILY 12/10/23 03/24/25 History loratadine 10 mg capsule 10 mg PO EVERY OTHER DAY 01/06/24 03/24/25 History rosuvastatin 10 mg tablet 10 mg PO DAILY 01/06/24 03/24/25 History cholecalciferol (vitamin D3) 50 50 mcg PO BID #30 tabs 01/17/24 03/24/25 Rx mcg (2,000 unit) tablet coenzyme X99-mlewoms E 100 mg-100 1 cap PO DAILY 01/21/24 03/24/25 History unit capsule carvedilol 12.5 mg tablet See Rx Instructions .Route 08/29/24 03/24/25 Rx .COMPLEX #180 tabs blood sugar diagnostic (Accu-Chek #100 ea 10/03/24 03/24/25 Rx Guide test strips) blood-glucose meter (Accu-Chek #1 ea 10/03/24 03/24/25 Rx Guide Me Glucose Meter) lancets 30 gauge (MoyTouch Delica #100 ea 12/26/24 03/24/25 Rx Plus Lancet) glipizide 5 mg tablet See Rx Instructions .Route 01/12/25 03/24/25 Rx .COMPLEX #180 tabs vitamin B complex and vitamin C See Rx Instructions .Route 01/12/25 03/24/25 Rx no.20-folic acid 1 mg capsule .COMPLEX #90 caps (Triphrocaps) hydralazine 25 mg tablet 50 mg PO BID 03/15/25 03/24/25 History ciprofloxacin HCl 750 mg tablet 750 mg PO Q12H #14 tabs 03/19/25 03/24/25 Rx doxycycline hyclate 100 mg tablet 100 mg PO BID #14 tabs 03/19/25 03/24/25 Rx furosemide 40 mg tablet See Rx Instructions .Route 03/24/25 03/24/25 Rx .COMPLEX #180 tabs Laboratory Tests 03/26/25 03/26/25 03/26/25 14:03 15:47 20:14 WBC RBC Hgb 8.4 L g/dL (14.0-18.0) Hct 27.5 L % (42.0-52.0) MCV MCH MCHC RDW Plt Count MPV Sodium Potassium Chloride Carbon Dioxide Anion Gap BUN Creatinine Estim Creat Clear Calc Estimated GFR Glucose POC Capillary Glucose 211 H mg/dl 171 H mg/dl (65-105) (65-105) Calcium Phosphorus Magnesium Albumin 03/27/25 03/27/25 03/27/25 04:32 06:42 11:50 WBC 15.8 H K/mm3 (4.5-10.0) RBC 2.97 L M/mm3 (4.6-6.20) Hgb 8.0 L g/dL (14.0-18.0) Hct 25.6 L % (42.0-52.0) MCV 86.2 fl (80-100) MCH 26.9 pg (26-34) MCHC 31.3 L g/dl (32-36) RDW 17.9 H % (11.5-14.5) Plt Count 199 k/mm3 (150-375) MPV 9.3 fl (7.4-10.4) Sodium 132 L mmol/L (137-145) Potassium 3.4 mmol/L (3.4-5.0) Chloride 95 L mmol/L (98-107) Carbon Dioxide 29 mmol/L (22-30) Anion Gap 8 mmol/L (4-12) BUN 78 H D mg/dL (9-20) Creatinine 7.58 H mg/dL (0.7-1.3) Estim Creat Clear Calc 8 ml/min Estimated GFR 7 L (59 - ) Glucose 150 H mg/dL (65-110) POC Capillary Glucose 162 H mg/dl 173 H mg/dl (65-105) (65-105) Calcium 8.0 L mg/dL (8.4-10.2) Phosphorus 6.0 H mg/dL (2.5-4.5) Magnesium 2.3 mg/dL (1.6-2.3) Albumin 2.3 L g/dL (3.5-5.1) Patient hx anesthesia problems: none Family hx anesthesia problems: none Results Review: All pre-operative results and documents have been reviewed as part of the pre-operative evaluation. [facility] Past Medical History Medical History Coffee ground emesis Atrial fibrillation cardoversion 12/27/21 Dependence on nocturnal oxygen therapy Asymptomatic stenosis of left carotid artery Hemiparesis affecting right side as late effect of cerebrovascular accident Pulmonary hypertension Diabetic neuropathy Diabetic retinopathy Pulmonary hypertension Combined systolic and diastolic congestive heart failure Echocardiogram 10/2021: Mild concentric left ventricular hypertrophy, moderate left ventricular enlargement, moderate global left ventricular systolic dysfunction with EF of 30%, diastolic dysfunction, severe left atrial enlargement, mild right atrial enlargement, mild aortic valve regurgitation, moderate pulmonary hypertension with RVSP of 53, moderate tricuspid regurgitation End-stage renal disease Hemodialysis started June 2022; managed by Dr. 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 Abnormal thumb on the left hand Anemia of chronic disease Allergic rhinitis Chronic sinusitis Eczema Ulcer Hyperlipidemia Surgical History Surgical History Status post creation of arteriovenous fistula Left upper arm Status post cataract extraction of both eyes with insertion of intraocular lens Family History Family History Father Lung cancer Daughter Chronic lung disease Morbid obesity Grandparent Asthma Mother Hypertension Other Diabetes mellitus Heart disease Malignant neoplasm of prostate Social History Social History (Updated 03/25/25 @ 05:33 by Rebecca Marcelino DO) Social History: The patient lives with his until recent hospitalization. After that hospitalization the patient's was discharged to her daughter's home and his is currently on hospice (March 2025). The patient's daughter and son-in-law are currently living with him and helping him with his daily cares. status: Full code Surrogate decision maker: Catie Lynne (daughter) Smoking status: Never smoker Smokeless tobacco user: chewing tobacco Second hand tobacco smoke exposure: No Alcohol intake: former Alcohol use details: He reports that he drank heavily until 1975 when he found [facility]. Substance use: never Substance use type: does not use Do You Feel Safe in your Home?: Yes Lack of Transportation: No Lack of Food: Never True Current Housing: I Have Housing Concerned About Future Housing: No Difficulty Paying Gas/Electric Bills: No Difficulty Paying for Meds: No Currently Unemployed: No Education: High School Diploma/GED Difficulty w/ Childcare or Family Care: No Living arrangements: with family Additional living arrangements comments: He and his have been since 1975. In his had children from separate marriages. He had 1 daughter who of morbid obesity and chronic lung disease. 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 Gender identity (if verbalized by the patient): Male Sexual Orientation (if Verbalized by the Patient): Straight or Heterosexual Spiritual care concerns: No Agree to blood products: Yes Anes - Eval Final PreProcedure Day of Procedure 03/27/25 13:41 Patient weight: normal Heart: irregular rhythm Lungs: clear to auscultation Airway: Mallampati scale class II Neurological: alert and oriented Last oral intake: >/= 8 hours ASA classification: IV Emergent: no Anesthetic plan: proceed Anesthesia type and monitoring: general GIVS and standard monitoring Results Review: All pre-operative results and documents have been reviewed as part of the pre-operative evaluation. Informed Consent: The patient's anesthetic plan and its attendant risks and benefits were discussed with the patient/family/POA. Questions were solicited and answers provided to the satisfaction of the patient/family/POA.
--- NOTE | 2025-03-27 13:46 | PM.IMPN ---
Progress Note: A&P Assessment and Plan (1) C. difficile colitis: Code(s): A04.72 - Enterocolitis due to Clostridium difficile, not specified as recurrent Status: Acute (2) AMS (altered mental status): Qualifiers: Altered mental status type: unspecified Qualified Code(s): R41.82 - Altered mental status, unspecified Code(s): R41.82 - Altered mental status, unspecified Status: Acute (3) Sepsis: Qualifiers: Sepsis type: sepsis due to unspecified organism Sepsis acute organ dysfunction status: with acute organ dysfunction Severe sepsis acute organ dysfunction type: encephalopathy Severe sepsis shock status: without septic shock Qualified Code(s): A41.9 - Sepsis, unspecified organism; R65.20 - Severe sepsis without septic shock; G93.41 - Metabolic encephalopathy Code(s): A41.9 - Sepsis, unspecified organism Status: Acute (4) Penile lesion: Code(s): N48.9 - Disorder of penis, unspecified Status: Acute (5) Diabetes: Qualifiers: Diabetes mellitus type: type 2 Diabetes mellitus long distance operator insulin use: without long distance operator use Diabetes mellitus complication status: with kidney complications Diabetes mellitus complication detail: with chronic kidney disease Chronic kidney disease stage: on chronic dialysis Qualified Code(s): E11.22 - Type 2 diabetes mellitus with diabetic chronic kidney disease; N18.6 - End stage renal disease; Z99.2 - Dependence on renal dialysis Code(s): E11.9 - Type 2 diabetes mellitus without complications Status: Acute (6) Dependence on nocturnal oxygen therapy: Code(s): Z99.81 - Dependence on supplemental oxygen Status: Acute (7) Chronic anticoagulation: Code(s): Z79.01 - jail (current) use of anticoagulants Status: Acute (8) Atrial fibrillation: Qualifiers: Atrial fibrillation type: permanent Qualified Code(s): I48.21 - Permanent atrial fibrillation Code(s): I48.91 - Unspecified atrial fibrillation Status: Acute Plan 79 y/o had been taking his Cipro and doxycycline and presented with weakness and confusion, is found to be positive with C diff has developed sepsis, being treated with Deficid 200mg q12, patient continue to have loose BM , his potassium is low 2/2 diarrhea, will supplement and monitor. as patient's stools form further recommendation to follow. on 03/26 patient had an episode coffee ground emesis, seen by GI and scheduled for EGD later today. his family is present and gave updates. Patient has sepsis due to C diff colitis with recent antibiotic use. Sepsis criteria met with tachycardia, leukocytosis in the setting of colitis on imaging with borderline hypotension. Lactic acid was added but was normal but patient did have elevated procalcitonin and has significant bandemia on CBC. Will discontinue outpatient Cipro and doxycycline the patient the patient had previously been discharged drawn. Will place the patient on Dificid p.o. b.i.d.. Patient received 500 mL of isotonic fluids at 150 mL an hour. 30 mL/kilos fluid bolus not administered due to the patient's history of CHF and end-stage renal disease. Will obtain blood cultures and repeat CBC in a.m.. Patient did have some altered mental status but a patient's mentation at the time my evaluation had actually improved compared to his prior hospitalization. Altered mental status likely due to metabolic encephalopathy from acute infection and illness. However cannot her rule out some underlying mild cognitive impairment. Patient would benefit from neuro cognitive testing on discharge. Patient has penile ulceration at the meatus that was debrided during last hospitalization. There seems to be a moderate amount of cloudy white drainage less purulent in appearance than during prior hospitalization. Will hold off on any antibiotic therapy in will apply topical care with Xeroform gauze. Sheriff catheter was exchanged in the ER. Patient has indwelling catheter due to history of atonic bladder. Patient has diabetes but is currently euglycemic. Will hold oral hypoglycemic agents. Will place patient on Accu-Cheks a.c. HS and will add hypoglycemia protocol. Repeat labs in morning did demonstrate hypoglycemia with supplements provided. Patient had hypokalemia on repeat labs in a.m. with 40 mEq potassium chloride administered. Will repeat electrolyte panel daily until stable. Patient has chronic AFib but is currently rate controlled. Will continue home Eliquis and Coreg. Patient does have chronic CHF buttock currently appears intervascular volume depleted. Will hold home Lasix and will hold hydralazine given borderline hypotension. Subjective Date/time seen: 03/27/25 13:46 Interval history: Weakness and confusion Narrative: 79-year-old male well known to me from prior hospitalizations with past medical history of end-stage renal disease on hemodialysis Thursday, essential hypertension, type 2 diabetes mellitus, grade 2 diastolic dysfunction, peripheral artery disease, neurogenic bladder with chronic indwelling Sheriff catheter with necrosis of the penile meatus who presented to the ER via EMS from dialysis due to weakness and confusion. Patient was recently hospitalized 03/17/2025 through 03/19/2025 due to failure to thrive, necrosis of the tip of the penis with cystoscopy and downsizing of his Sheriff catheter with debridement of his penile meatus. He was discharged home on Cipro and doxycycline for prior culture of the meatus result from February demonstrating Serratia and MRSA. While in the ER the patient had a large incontinent bowel movement of diarrhea. The patient reports that he has been having diarrhea since the 2nd day after being discharged from the hospital. He is having numerous diarrheal stools a day. His stools are mushy and watery. He has started having fevers and chills over the last 2 days. He has had significant decrease in appetite. He reports that he feels like he has lost weight. He denies any chest pain or shortness of breath. He reports that he has feels overtly weak. He reports feeling nauseous but not having any significant vomiting. He does still produce a small amount of urine and has a Sheriff catheter in place. According to the Urology note patient had Sheriff catheter in place for about 3 weeks prior to his previous admission. In the ER CT scan demonstrated colitis and he had marked leukocytosis. Is electrolyte panel was stable. C diff PCR was found to be positive. The patient's blood pressures in the ER were soft with systolic blood pressures in the 90s and when the patient arrived to the ER his heart rate was initially in the 120s to 130s in AFib. He denies missing any medications. He has been continuing to take the Cipro and Flagyl that he was discharged on. 79 y/o had been taking his Cipro and doxycycline and presented with weakness and confusion, is found to be positive with C diff has developed sepsis, being treated with Deficid 200mg q12, patient continue to have loose BM , his potassium is low 2/2 diarrhea, will supplement and monitor. as patient's stools form further recommendation to follow. on 03/26 patient had an episode coffee ground emesis, seen by GI and scheduled for EGD later today. his family is present and gave updates. Review of Systems Review of Systems: 12 systems were reviewed with pertinent positives and negatives per HPI. Except as documented in the HPI, all other systems were reviewed and are negative. Exam Narrative: Patient is comfortable, NAD HEENT: eyes are clear and none icteric LUNGS:CTA HEART: RR S1S2 ABD: BS+, Soft and nontender Lower extremities: no edema SKIN: nonjaundiced Neuro: grossly intact. Objective Data Vital Signs Vital Signs: Vital Signs - 24 hr 03/26/25 14:00 03/26/25 15:55 03/26/25 16:00 Temperature 36.6 C Pulse Rate 100 110 H 97 Respiratory Rate 14 Blood Pressure 113/51 L Pulse Oximetry 95 Oxygen Delivery 03/26/25 16:14 03/26/25 18:00 03/26/25 20:00 Temperature 37.0 C Pulse Rate 101 H 108 H 101 H Respiratory Rate 14 Blood Pressure 99/60 L Pulse Oximetry 97 Oxygen Delivery 03/26/25 20:00 03/26/25 22:00 03/26/25 23:01 Temperature Pulse Rate 97 Respiratory Rate Blood Pressure Pulse Oximetry 97 Oxygen Delivery Room Air Room Air 03/27/25 00:00 03/27/25 00:00 03/27/25 00:00 Temperature 36.8 C Pulse Rate 100 92 Respiratory Rate 14 Blood Pressure 107/47 L Pulse Oximetry 93 Oxygen Delivery Room Air 03/27/25 02:00 03/27/25 03:32 03/27/25 03:35 Temperature 36.8 C Pulse Rate 88 102 H Respiratory Rate 14 Blood Pressure 103/47 L Pulse Oximetry 95 Oxygen Delivery Room Air 03/27/25 04:00 03/27/25 06:00 03/27/25 08:00 Temperature 37.3 C Pulse Rate 106 H 98 107 H Respiratory Rate 14 Blood Pressure 104/45 L Pulse Oximetry 97 Oxygen Delivery 03/27/25 11:56 03/27/25 11:58 Temperature 36.6 C Pulse Rate 102 H 102 H Respiratory Rate 14 Blood Pressure 118/56 L Pulse Oximetry 98 Oxygen Delivery Intake/Output Intake/Output: Intake & Output 03/24/25 03/25/25 03/26/25 03/27/25 23:59 23:59 23:59 23:59 Intake Total 1462.5 1467.5 1375.0 Output Total 0 95 40 20 Balance 1462.5 1372.5 1335.0 -20 Meds/Results Medications: Active Medications Generic Name Dose Route Start Last Admin Trade Name Freq PRN Reason Stop Dose Admin Acetaminophen 650 mg 03/24/25 20:52 03/25/25 12:23 Acetaminophen 325 Mg Tablet PO 650 mg Q4H PRN Administration Mild Pain (1-3) or Fever Apixaban 5 mg 03/25/25 09:00 03/26/25 09:50 Apixaban 5 Mg Tablet PO 5 mg On Hold: 03/26/25 15:42 Q12HR ALENA Administration Carvedilol 12.5 mg 03/25/25 08:00 03/27/25 08:42 Carvedilol 12.5 Mg Tablet PO 12.5 mg BIDWM ALENA Administration Clopidogrel Bisulfate 75 mg 03/25/25 09:00 03/27/25 08:42 Clopidogrel Bisulfate 75 Mg Tablet PO 75 mg DAILY ALENA Administration Dextrose 12.5 gm 03/25/25 05:22 Dextrose 50% 25 Gm/50 Ml Syringe IV PUSH PRN PRN Hypoglycemia Protocol Epoetin Noe-epbx 10,000 units 03/27/25 18:00 Epoetin Noe-Epbx 10,000 Units/Ml Vial IV PUSH 03/27/25 18:01 ONCE ONE Ferrous Sulfate 325 mg 03/25/25 09:00 03/27/25 08:42 Ferrous Sulfate 325 Mg Tablet PO 325 mg BID ALENA Administration Fidaxomicin 200 mg 03/24/25 22:00 03/27/25 08:42 Fidaxomicin 200 Mg Tablet PO 04/03/25 21:59 200 mg Q12HR ALENA Administration Glucagon 1 mg 03/25/25 05:22 Glucagon For Inj 1 Mg Vial IM PRN PRN Hypoglycemia Protocol Glucose 15 gm 03/25/25 05:22 03/25/25 05:30 Glucose Oral Gel 15 Gm Of Glucse In 37.5 Gm Tube PO 15 gm PRN PRN Administration Hypoglycemia Protocol Dextrose 1,000 mls @ 100 mls/hr 03/25/25 05:22 Dextrose 5% 1,000 Ml IVPB PRN PRN Hypoglycemia Protocol Lactated Ringer's 1,000 mls @ 150 mls/hr 03/27/25 08:15 Lr - Lactated Ringers Iv IV CONT .Q6H40M ALENA Albumin Human 50 mls @ 999 mls/hr 03/27/25 13:17 Albutein IVPB 04/26/25 13:16 Q10M PRN HYPOTENSION Sodium Chloride 1,000 mls @ 999 mls/hr 03/27/25 13:17 Normal Saline Iv IV CONT 03/27/25 14:17 .Q1H1M ONE Sodium Chloride 500 mls @ 10 mls/hr 03/27/25 13:45 Normal Saline Iv IV CONT .Q24H ALENA Insulin Aspart 2 - 5 units 03/26/25 17:00 03/27/25 13:13 Insulin Aspart (*Bkc) 100 Units/Ml SUB-Q Not Given TIDWM [facility] Protocol Lidocaine/Prilocaine 1 each 03/27/25 13:22 Lidocaine/Prilocaine Cream 2.5-2.5% Tube TOPICAL WITH DIALYSIS PRN for dialysis Protocol Loratadine 10 mg 03/25/25 09:00 03/27/25 08:42 Loratadine 10 Mg Tablet PO 10 mg Q48HR ALENA Administration Ondansetron HCl 4 mg 03/24/25 20:52 03/26/25 16:14 Ondansetron Inj 4 Mg/2 Ml Vial IV PUSH 4 mg Q4H PRN Administration Nausea Pantoprazole Sodium 40 mg 03/27/25 09:00 03/27/25 13:12 Pantoprazole Sodium Iv 40 Mg Vial IV PUSH 40 mg QAM ALENA Administration Vitamin B Complex/Folic Acid 1 cap 03/25/25 09:00 03/27/25 08:42 Vitamin B Cmplx/Vit C/Folic Ac 1 Capsule PO 1 cap DAILY ALENA Administration Vitamin D 50 mcg 03/25/25 09:00 03/27/25 08:42 Cholecalciferol (Vitamin D3) 25 Mcg (1,000 Units) Tablet PO 50 mcg BID ALENA Administration Radiology Results: ITS Impressions Abdomen/Pelvis CT 03/24/25 20:06 IMPRESSION: 1. Significant thickening of the descending, sigmoid colon and rectum, consistent with colitis, most likely infectious or inflammatory. Ischemia is less favored although not excluded. 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 2: Hypodense 2.6 cm splenic mass. Differential diagnosis includes benign etiologies such as hemangioma, hamartoma and lymphangioma versus malignant lesion such as lymphoma or metastatic disease. 3: Cholelithiasis. 4: Chronic interstitial fibrosis of the lung bases. Head CT 03/26/25 07:25 IMPRESSION: 1. No acute intracranial findings. Chest X-Ray 03/26/25 19:16 Impression: Mild CHF Labs Labs: Laboratory Results - last 24 hr 03/26/25 03/26/25 03/26/25 14:03 15:47 20:14 WBC RBC Hgb 8.4 L Hct 27.5 L MCV MCH MCHC RDW Plt Count MPV Sodium Potassium Chloride Carbon Dioxide Anion Gap BUN Creatinine Estim Creat Clear Calc Estimated GFR Glucose POC Capillary Glucose 211 H 171 H Calcium Phosphorus Magnesium Albumin 03/27/25 03/27/25 03/27/25 04:32 06:42 11:50 WBC 15.8 H RBC 2.97 L Hgb 8.0 L Hct 25.6 L MCV 86.2 MCH 26.9 MCHC 31.3 L RDW 17.9 H Plt Count 199 MPV 9.3 Sodium 132 L Potassium 3.4 Chloride 95 L Carbon Dioxide 29 Anion Gap 8 BUN 78 H D Creatinine 7.58 H Estim Creat Clear Calc 8 Estimated GFR 7 L Glucose 150 H POC Capillary Glucose 162 H 173 H Calcium 8.0 L Phosphorus 6.0 H Magnesium 2.3 Albumin 2.3 L Quality VTE Prophylaxis VTE prophylaxis: pharmacologic ordered (Continue home Eliquis)
[2025-03-27] MEDS: SODIUM CHLORIDE 0.9% IV 500 ML 10 ML IV CONT (13:49)
--- NOTE | 2025-03-27 14:01 | S_PTH ---
PATIENT: Abel Pike LOC: [facility] #:[id number] AGE/SX: 79/M ROOM: 213 RE03/26/[address]: Mt Patterson MD : 1945 BED: 01 DIS: 03/29/2025 SPEC #: [id number] RECD: 03/27/25 14:07 STATUS: PAULA REOsito #: [id number] MAGDIEL: 03/27/25 14:[address]: Wilfrido Bowling DEPT: [facility] Surgical RECD BY: Robert James ENTERED: 03/27/25 14:08 SP TYPE: Surgical OTHR DR: DO Leonard Crowder MD Mafeth A. Lim, DO Tissues: A - Gastric Biopsy B - Esophageal Biopsy Procedures: Hematoxylin and Eosin Stain Gross and Microscopic Level 4 P53 Mib P16
--- NOTE | 2025-03-27 16:14 | PC.NURSE ---
pt arrived post egd to room 213. Dialysis had called for pt to come up. Upon entering room and explaining plan of care, pt stated that he is too worn out from today and refuses to be transferred to dialysis. This RN explained the risks of refusal and ensured the patient was alert enough to make his own decisions. Pt presents A&Ox4 and verbalizes understanding. Dr Mckeon was then notified of refusal and states that he will proceed for dialysis tomorrow which pt was agreeable with.
--- NOTE | 2025-03-27 17:25 | P.CONNP_ITS ---
Assessment and Plan Assessment and plan (1) End-stage renal disease: Code(s): N18.6 - End stage renal disease Status: Chronic Assessment and Plan: * HD today (since missed his treatment yesterday) * resume M/W/F dialysis schedule tomorrow while hospitalized * follow electrolytes, volume status, and clearance (2) C. difficile colitis: Code(s): A04.72 - Enterocolitis due to Clostridium difficile, not specified as recurrent Status: Acute Assessment and Plan: * as noted by testing * started on Dificid * continue supportive therapy (3) Erosive esophagitis: Code(s): K22.10 - Ulcer of esophagus without bleeding Status: Acute Assessment and Plan: * as noted by EGD * etiology of coffee ground emesis * continue with PPI and carafate * GI following PRN (4) Anemia: Code(s): D64.9 - Anemia, unspecified Status: Chronic Assessment and Plan: * partly due to ESRD * some worsening due to recent/current infections(?) and #3 * Epogen with HD * follow trend of H/H (5) Paroxysmal atrial fibrillation: Code(s): I48.0 - Paroxysmal atrial fibrillation Status: Inactive Assessment and Plan: * rate control strategy * holding anticoagulation due to #3 (6) Chronic combined systolic and diastolic CHF (congestive heart failure): Code(s): I50.42 - Chronic combined systolic (congestive) and diastolic (congestive) heart failure Status: Chronic Assessment and Plan: * noted by previous testing * no evidence of exacerbation * fluid removal with dialysis to maintain euvolemia (7) Hypertension: Code(s): I10 - Essential (primary) hypertension Status: Chronic Assessment and Plan: * elevated on admission * reasonable control at this time * follow trend of hemodynamics (8) 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 Thank you for allowing me to participate in the care of this patient. L History of Present Illness Reason for Consult Consult date: 03/27/25 Reason for consult: end stage renal disease Chief Complaint Chief complaint: colitis,esrd,safib History of Present Illness Narrative: The patient is a 79-year-old male with a past medical history as outlined below who presented to [facility] 79-year-old male well known to me from prior hospitalizations with past medical history of end-stage renal disease on hemodialysis Thursday, essential hypertension, type 2 diabetes mellitus, grade 2 diastolic dysfunction, peripheral artery disease, neurogenic bladder with chronic indwelling Sheriff catheter with necrosis of the penile meatus who presented to the ER via EMS from dialysis due to weakness and confusion. Patient was recently hospitalized 03/17/2025 through 03/19/2025 due to failure to thrive, necrosis of the tip of the penis with cystoscopy and downsizing of his Sheriff catheter with debridement of his penile meatus. He was discharged home on Cipro and doxycycline for prior culture of the meatus result from February demonstrating Serratia and MRSA. While in the ER the patient had a large incontinent bowel movement of diarrhea. The patient reports that he has been having diarrhea since the 2nd day after being discharged from the hospital. He is having numerous diarrheal stools a day. His stools are mushy and watery. He has started having fevers and chills over the last 2 days. He has had significant decrease in appetite. He reports that he feels like he has lost weight. He denies any chest pain or shortness of breath. He reports that he has feels overtly weak. He reports feeling nauseous but not having any significant vomiting. He does still produce a small amount of urine and has a Sheriff catheter in place. According to the Urology note patient had Sheriff catheter in place for about 3 weeks prior to his previous admission. In the ER CT scan demonstrated colitis and he had marked leukocytosis. Is electrolyte panel was stable. C diff PCR was found to be positive. The patient's blood pressures in the ER were soft with systolic blood pressures in the 90s and when the patient arrived to the ER his heart rate was initially in the 120s to 130s in AFib. He denies missing any medications. He has been continuing to take the Cipro and Flagyl that he was discharged on. Renal consultation was requested due to his end-stage renal disease. The patient normally dialyzes on a Thursday, Thursday, Thursday dialysis schedule at [facility] under the care of Dr. Estiven Dubois. As already mentioned above, he missed his dialysis treatment yesterday as his , who usually transports him to dialysis, was unable to do so due to her ER visit/evaluation. Otherwise, in general, he is compliant with his dialysis treatments any usually does not have any significant issues or problems with regard to volume overload or critical electrolytes from review of his monthly dialysis labs. His last dialysis treatment was on Thursday, 03/13 and as far as I am aware, this treatment was uneventful. Currently, at the time my evaluation, he appears to be in no acute distress and is tolerating dialysis without any issues/problems (seen on HD at 11:15am) [facility] Past Medical History Medical History Erosive esophagitis Coffee ground emesis Atrial fibrillation cardoversion 12/27/21 Dependence on nocturnal oxygen therapy Asymptomatic stenosis of left carotid artery Hemiparesis affecting right side as late effect of cerebrovascular accident Pulmonary hypertension Diabetic neuropathy Diabetic retinopathy Pulmonary hypertension Combined systolic and diastolic congestive heart failure Echocardiogram 10/2021: Mild concentric left ventricular hypertrophy, moderate left ventricular enlargement, moderate global left ventricular systolic dysfunction with EF of 30%, diastolic dysfunction, severe left atrial enlargement, mild right atrial enlargement, mild aortic valve regurgitation, moderate pulmonary hypertension with RVSP of 53, moderate tricuspid regurgitation End-stage renal disease Hemodialysis started June 2022; managed by Dr. 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 Abnormal thumb on the left hand Anemia of chronic disease Allergic rhinitis Chronic sinusitis Eczema Ulcer Hyperlipidemia Surgical History Surgical History Status post creation of arteriovenous fistula Left upper arm Status post cataract extraction of both eyes with insertion of intraocular lens Family History Family History Father Lung cancer Daughter Chronic lung disease Morbid obesity Grandparent Asthma Mother Hypertension Other Diabetes mellitus Heart disease Malignant neoplasm of prostate Social History Social History Social History: The patient lives with his until recent hospitalization. After that hospitalization the patient's was discharged to her daughter's home and his is currently on hospice (March 2025). The patient's daughter and son-in-law are currently living with him and helping him with his daily cares. status: Full code Surrogate decision maker: Catie Lynne (daughter) Smoking status: Never smoker Smokeless tobacco user: chewing tobacco Second hand tobacco smoke exposure: No Alcohol intake: former Alcohol use details: He reports that he drank heavily until 1975 when he found [facility]. Substance use: never Substance use type: does not use Lack of Transportation: No Lack of Food: Never True Current Housing: I Have Housing Concerned About Future Housing: No Difficulty Paying Gas/Electric Bills: No Difficulty Paying for Meds: No Currently Unemployed: No Education: High School Diploma/GED Difficulty w/ Childcare or Family Care: No Living arrangements: with family Additional living arrangements comments: He and his have been since 1975. In his had children from separate marriages. He had 1 daughter who of morbid obesity and chronic lung disease. 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 Gender identity (if verbalized by the patient): Male Sexual Orientation (if Verbalized by the Patient): Straight or Heterosexual Spiritual care concerns: No Agree to blood products: Yes Meds Home Medications and Allergies Home Medications ?Medication ?Instructions ?Recorded ?Confirmed ?Type ferrous sulfate 325 mg (65 mg 325 mg PO BID 01/10/22 1 05/24/24 History iron) tablet (Iron (ferrous sulfate)) apixaban 5 mg tablet (Eliquis) 5 mg PO BID 01/11/22 History blood-glucose meter (OneTouch #1 ea 01/22/22 03/24/25 Rx Ultra2 Meter kit) clopidogrel 75 mg tablet 75 mg PO DAILY 12/10/2312/09 History loratadine 10 mg capsule 10 mg PO EVERY OTHER DAY 03/24/25 History rosuvastatin 10 mg tablet 10 mg PO DAILY 01/06/2412/09 History cholecalciferol (vitamin D3) 50 50 mcg PO BID #30 tabs 01/17/24 03/24/25 Rx mcg (2,000 unit) tablet coenzyme [id number] 100 mg-100 1 cap PO DAILY 01/2003/24/25 History unit capsule carvedilol 12.5 mg tablet See Rx Instructions .Route 0 08/29/24 03/24/25 Rx .COMPLEX #180 tabs blood sugar diagnostic (Accu-Chek #100 ea 10/03/2412/09 Rx Guide test strips) blood-glucose meter (Accu-Chek #1 ea 10/03/24 03/24/25 Rx Guide Me Glucose Meter) lancets 30 gauge (OneTouch Delica #100 ea 12/26/2412/09 Rx Plus Lancet) glipizide 5 mg tablet See Rx Instructions .Route 0 01/12/25 03/24/25 Rx .COMPLEX #180 tabs vitamin B complex and vitamin C See Rx Instructions .R oute 01/12/25 03/24/25 Rx no.20-folic acid 1 mg capsule .COMPLEX #90 caps (Triphrocaps) hydralazine 25 mg tablet 50 mg PO BID 03/15/25 History furosemide 40 mg tablet See Rx Instructions .Route 1 05/24/24 03/24/25 Rx Held on 03/29/25. .COMPLEX #180 tabs Instructions: until seen by his primary care fidaxomicin 200 mg tablet (Dificid) 200 mg PO Q12HR #1 4 tabs 03/29/25 Rx hydrocodone 5 mg-acetaminophen 325 1 tablet PO Q6H PRN Pain Rated 4-6 03/29/25 Rx mg tablet #10 tabs lidocaine-prilocaine 2.5 %-2.5 % 0.5 g topical WITH DI ALYSIS PRN 03/29/25 Rx topical cream for dialysis #30 grams pantoprazole 40 mg tablet,delayed 40 mg PO Q12HR #60 t abs 03/29/25 Rx release sucralfate 100 mg/mL oral 1,000 mg (10 mL) PO ACHS #1, 000 mL 03/29/25 Rx suspension Allergies Allergy/AdvReac Type Severity Reaction Status Date / Time Sulfa (Sulfonamide Allergy Unknown Rash,Unknow Verified 04/04/25 07:46 Antibiotics) n,Unknown,R isaiah,Rash,Un known,Unkno wn,Rash sitagliptin (From [employer]) Allergy Rash Verified 04/04/25 07:46 Tea Allergy Nausea and Uncoded 04/04/25 07:46 Vomiting Vital Signs Vital Signs Temp Pulse Resp BP Pulse Ox O2 Del Method 03/27/25 16:08 98.7 F 99 14 124/47 L 96 03/27/25 16:00 109 H 03/27/25 16:00 99 14 96 Room Air 03/27/25 14:44 100 03/27/25 14:24 98 20 102/51 L 98 Room Air 03/27/25 14:14 93 20 85/38 L 96 Room Air 03/27/25 14:04 97 20 110/46 L 100 Room Air 03/27/25 12:00 Room Air 03/27/25 12:00 110 H 03/27/25 11:58 102 H 03/27/25 11:56 98 F 102 H 14 118/56 L 98 03/27/25 10:00 104 H 03/27/25 08:00 Room Air 03/27/25 08:00 100 03/27/25 08:00 99.1 F 107 H 14 104/45 L 97 03/27/25 06:00 98 03/27/25 04:00 106 H 03/27/25 03:35 98.2 F 102 H 14 103/47 L 95 03/27/25 03:32 Room Air 03/27/25 02:00 88 03/27/25 00:00 92 03/27/25 00:00 Room Air 03/27/25 00:00 98.2 F 100 14 107/47 L 93 03/26/25 23:01 97 Room Air 03/26/25 22:00 97 03/26/25 20:00 Room Air 03/26/25 20:00 98.6 F 101 H 14 99/60 L 97 Results Lab Results 03/28/25 03:44 03/28/25 03:44 Lab results: Most recent lab results Calcium 8.0 mg/dL (8.4-10.2) L 03/27/25 04:32 Phosphorus 6.0 mg/dL (2.5-4.5) H 03/27/25 04:32 Magnesium 2.3 mg/dL (1.6-2.3) 03/27/25 04:32
[2025-03-27] MEDS: SUCRALFATE SUSP 100 MG/ML 10 ML UDC 1000 MG PO ×2 (18:42→20:35)
[2025-03-27] MEDS: PANTOPRAZOLE 40 MG TABLET PO (20:35)
[2025-03-28] VITALS (35 sets, daily range): BP systolic 73–135; BP diastolic 30–82; PULSE 54–110; RESP 15–20; TEMP 36.3–37; O2SAT 94–100
[2025-03-28 04:08] LABS: Hematocrit 26.7 % (42.0-52.0); Hemoglobin 8.2 g/dL (14.0-18.0); Mean Corpuscular HGB Conc 30.7 g/dl (32-36); Mean Corpuscular Hemoglobin 26.5 pg (26-34); Mean Corpuscular Volume 86.4 fl (80-100); Platelet Count Result 201 k/mm3 (150-375); Red Blood Count 3.09 M/mm3 (4.6-6.20); White Blood Count 13.3 K/mm3 (4.5-10.0)
[2025-03-28 04:30] LABS: Albumin Level 2.3 g/dL (3.5-5.1); Anion Gap 9 mmol/L (4-12); Blood Urea Nitrogen 90 mg/dL (9-20); Calcium 8.1 mg/dL (8.4-10.2); Carbon Dioxide 26 mmol/L (22-30); Chloride 98 mmol/L (98-107); Estimated CRCL calculation 7 ml/min; Estimated Glomerular Filt Rate 6; Glucose 137 mg/dL (65-110); Magnesium 2.6 mg/dL (1.6-2.3); Potassium 3.5 mmol/L (3.4-5.0); Sodium 133 mmol/L (137-145)
--- NOTE | 2025-03-28 06:09 | PC.NURSE ---
stat lock applied and Zeroform dressing changed
[2025-03-28] MEDS: SUCRALFATE SUSP 100 MG/ML 10 ML UDC 1000 MG PO ×4 (06:14→20:35)
--- NOTE | 2025-03-28 07:53 | WPDANESPN ---
Anes - Prog Note Post-Op Date/Time: 03/28/25 07:53 Cardiovascular status: normal Respiratory status: normal Airway patency: baseline Mental status: baseline Post-Op hydration status: normal Vital Signs: Last Vital Signs Temp 36.7 C 03/28/25 05:57 Pulse 95 03/28/25 06:00 Resp 20 03/28/25 05:57 BP 100/54 L 03/28/25 05:57 Pulse Ox 94 03/28/25 05:57 O2 Del Method Room Air 03/28/25 04:00 Pain Score (VAS): 1 I/O: Intake & Output 03/27/25 03/27/25 03/28/25 15:59 23:59 07:59 Intake Total 0 120 Output Total 1 Balance 0 119 Laboratory Tests 03/28/25 03:44 03/28/25 03:44 03/27/25 03/27/25 03/27/25 11:50 13:42 15:36 WBC RBC Hgb Hct MCV MCH MCHC RDW Plt Count MPV Sodium Potassium Chloride Carbon Dioxide Anion Gap BUN Creatinine Estim Creat Clear Calc Estimated GFR Glucose POC Capillary Glucose 173 H 157 H 154 H Calcium Phosphorus Magnesium Albumin 03/27/25 03/28/25 03/28/25 19:42 03:44 07:09 WBC 13.3 H RBC 3.09 L Hgb 8.2 L Hct 26.7 L MCV 86.4 MCH 26.5 MCHC 30.7 L RDW 18.1 H Plt Count 201 MPV 9.3 Sodium 133 L Potassium 3.5 Chloride 98 Carbon Dioxide 26 Anion Gap 9 BUN 90 H D Creatinine 8.83 H Estim Creat Clear Calc 7 Estimated GFR 6 L Glucose 137 H POC Capillary Glucose 152 H 146 H Calcium 8.1 L Phosphorus 5.8 H Magnesium 2.6 H Albumin 2.3 L Microbiology 03/24/25 21:48 Blood Blood Culture - Preliminary 03/24/25 21:49 Blood Blood Culture - Preliminary Post-procedural complaints: none Patient Feedback: Patient satisfied with anesthetic care.
[2025-03-28] MEDS: PANTOPRAZOLE 40 MG TABLET PO ×2 (08:50→20:35)
[2025-03-28] MEDS: FERROUS SULFATE 325 MG TABLET PO ×2 (08:50→18:05)
[2025-03-28] MEDS: FIDAXOMICIN 200 MG TABLET PO ×2 (08:50→20:35)
[2025-03-28] MEDS: CHOLECALCIFEROL (VITAMIN D3) 25 MCG (1,000 UNITS) TABLET 50 MCG PO ×2 (08:50→18:05)
[2025-03-28] MEDS: CLOPIDOGREL BISULFATE 75 MG TABLET PO (08:50)
[2025-03-28] MEDS: VITAMIN B CMPLX/VIT C/FOLIC AC 1 CAPSULE 1 CAP PO (08:50)
--- NOTE | 2025-03-28 10:34 | PCPTNOTE ---
Spoke with JORDAN Witt to remove bedrest orders for pt participation in therapy. Will notify nursing.
[2025-03-28] MEDS: INSULIN ASPART (*BKC) 100 UNITS/ML SUB-Q (11:36)
[2025-03-28] MEDS: HYDROcodone/acetaminophen (*CRX) 5-325 MG TABLET 1 TAB PO ×2 (14:11→20:35)
--- NOTE | 2025-03-28 15:09 | WPDGIPROGNO ---
Progress Note: A&P Assessment and Plan (1) Erosive esophagitis: Code(s): K22.10 - Ulcer of esophagus without bleeding Status: Acute Assessment and Plan: noted in egd, cause of coffee ground emesis continue with ppi and carafate h/h chronically low but stable will follow as needed (2) Sepsis: Qualifiers: Sepsis type: sepsis due to unspecified organism Sepsis acute organ dysfunction status: with acute organ dysfunction Severe sepsis acute organ dysfunction type: encephalopathy Severe sepsis shock status: without septic shock Qualified Code(s): A41.9 - Sepsis, unspecified organism; R65.20 - Severe sepsis without septic shock; G93.41 - Metabolic encephalopathy Code(s): A41.9 - Sepsis, unspecified organism Status: Acute Assessment and Plan: wbc trending down continue with dificid to treate c diff (3) C. difficile colitis: Code(s): A04.72 - Enterocolitis due to Clostridium difficile, not specified as recurrent Status: Acute (4) End-stage renal disease on hemodialysis: Code(s): N18.6 - End stage renal disease; Z99.2 - Dependence on renal dialysis Status: Chronic Assessment and Plan: on dialysis (5) Coffee ground emesis: Code(s): K92.0 - Hematemesis Status: Acute Assessment and Plan: no more episodes (6) Penile lesion: Code(s): N48.9 - Disorder of penis, unspecified Status: Acute Subjective Date/time seen: 03/28/25 15:09 Interval history: egd yesterday with severe erosive esophagitis still poor appetite and diarrhea on dialysis right now Review of Systems Review of Systems: All systems reviewed & are unremarkable except as noted in HPI and below Exam Const: Other: chronically ill-appearing, well-nourished, debilitated Eyes: Sclera: sclerae normal Neck: Neck: supple Resp: Effort & Inspection: normal respiratory effort Cardio: Rhythm: abnormal rhythm irregularly irregular GI: GI Palp: Yes Soft to palpation and No Tenderness to palpation present (GI) Auscultation: normal bowel sounds : Other: Sheriff catheter in place Skin: General skin exam: normal color Neuro: Speech: normal speech Other: awake and alert Extrem: General: normal to inspection Psych: Affect: Sad affect present Objective Data Vital Signs Vital Signs: Vital Signs - 24 hr 03/27/25 16:00 03/27/25 16:00 03/27/25 16:08 Temperature 98.7 F Pulse Rate 99 109 H 99 Respiratory Rate 14 14 Blood Pressure 124/47 L Pulse Oximetry 96 96 Oxygen Delivery Room Air 03/27/25 18:00 03/27/25 20:00 03/27/25 20:00 Temperature 98.0 F Pulse Rate 105 H 98 93 Respiratory Rate 20 Blood Pressure 106/53 L Pulse Oximetry 97 Oxygen Delivery Room Air 03/27/25 20:00 03/27/25 22:00 03/28/25 00:00 Temperature Pulse Rate 103 H 98 96 Respiratory Rate Blood Pressure Pulse Oximetry Oxygen Delivery Room Air 03/28/25 00:00 03/28/25 00:00 03/28/25 02:00 Temperature 98.4 F Pulse Rate 93 99 92 Respiratory Rate 20 Blood Pressure 107/58 L Pulse Oximetry 96 Oxygen Delivery 03/28/25 04:00 03/28/25 04:00 03/28/25 04:00 Temperature 98.5 F Pulse Rate 95 94 99 Respiratory Rate 20 Blood Pressure 110/62 Pulse Oximetry 96 Oxygen Delivery Room Air 03/28/25 05:57 03/28/25 06:00 03/28/25 07:58 Temperature 98.0 F 98.3 F Pulse Rate 101 H 95 89 Respiratory Rate 20 18 Blood Pressure 100/54 L 135/63 Pulse Oximetry 94 100 Oxygen Delivery 03/28/25 08:00 03/28/25 08:51 03/28/25 10:00 Temperature Pulse Rate 98 98 97 Respiratory Rate Blood Pressure Pulse Oximetry Oxygen Delivery 03/28/25 11:14 03/28/25 12:00 03/28/25 12:00 Temperature 97.6 F Pulse Rate 101 H 96 Respiratory Rate 20 Blood Pressure 87/48 L Pulse Oximetry 100 Oxygen Delivery Room Air 03/28/25 12:01 03/28/25 13:55 03/28/25 14:00 Temperature Pulse Rate 85 96 Respiratory Rate Blood Pressure 101/62 99/55 L Pulse Oximetry Oxygen Delivery 03/28/25 14:07 03/28/25 14:10 03/28/25 14:15 Temperature 97.3 F L Pulse Rate 85 86 96 Respiratory Rate 15 Blood Pressure 99/55 L 99/54 L 89/44 L Pulse Oximetry 97 Oxygen Delivery Intake/Output Intake/Output: Intake & Output 03/25/25 03/26/25 03/27/25 03/28/25 23:59 23:59 23:59 23:59 Intake Total 1467.5 1375.0 120 50 Output Total 95 40 21 Balance 1372.5 1335.0 99 50 Meds/Results Medications: Active Medications Generic Name Dose Route Start Last Admin Trade Name Freq PRN Reason Stop Dose Admin Acetaminophen 650 mg 03/24/25 20:52 03/25/25 12:23 Acetaminophen 325 Mg Tablet PO 650 mg Q4H PRN Administration Mild Pain (1-3) or Fever Hydrocodone Bitart/Acetaminophen 1 tab 03/28/25 13:59 03/28/25 14:11 Hydrocodone/Acetaminophen (*Crx) 5-325 Mg Tablet PO 1 tab Q6H PRN Administration Pain Rated 4-6 Apixaban 5 mg 03/25/25 09:00 03/26/25 09:50 Apixaban 5 Mg Tablet PO 5 mg On Hold: 03/26/25 15:42 Q12HR ALENA Administration Carvedilol 12.5 mg 03/25/25 08:00 03/28/25 08:51 Carvedilol 12.5 Mg Tablet PO 12.5 mg BIDWM ALENA Administration Clopidogrel Bisulfate 75 mg 03/25/25 09:00 03/28/25 08:50 Clopidogrel Bisulfate 75 Mg Tablet PO 75 mg DAILY ALENA Administration Dextrose 12.5 gm 03/25/25 05:22 Dextrose 50% 25 Gm/50 Ml Syringe IV PUSH PRN PRN Hypoglycemia Protocol Ferrous Sulfate 325 mg 03/25/25 09:00 03/28/25 08:50 Ferrous Sulfate 325 Mg Tablet PO 325 mg BID ALENA Administration Fidaxomicin 200 mg 03/24/25 22:00 03/28/25 08:50 Fidaxomicin 200 Mg Tablet PO 04/03/25 21:59 200 mg Q12HR ALENA Administration Glucagon 1 mg 03/25/25 05:22 Glucagon For Inj 1 Mg Vial IM PRN PRN Hypoglycemia Protocol Glucose 15 gm 03/25/25 05:22 03/25/25 05:30 Glucose Oral Gel 15 Gm Of Glucse In 37.5 Gm Tube PO 15 gm PRN PRN Administration Hypoglycemia Protocol Dextrose 1,000 mls @ 100 mls/hr 03/25/25 05:22 Dextrose 5% 1,000 Ml IVPB PRN PRN Hypoglycemia Protocol Albumin Human 50 mls @ 999 mls/hr 03/27/25 13:17 Albutein IVPB 04/26/25 13:16 Q10M PRN HYPOTENSION Insulin Aspart 2 - 5 units 03/26/25 17:00 03/28/25 11:36 Insulin Aspart (*Bkc) 100 Units/Ml SUB-Q 2 units TIDWM ALENA Administration Protocol Lidocaine/Prilocaine 1 each 03/27/25 13:22 Lidocaine/Prilocaine Cream 2.5-2.5% Tube TOPICAL WITH DIALYSIS PRN for dialysis Protocol Loratadine 10 mg 03/25/25 09:00 03/27/25 08:42 Loratadine 10 Mg Tablet PO 10 mg Q48HR ALENA Administration Ondansetron HCl 4 mg 03/24/25 20:52 03/26/25 16:14 Ondansetron Inj 4 Mg/2 Ml Vial IV PUSH 4 mg Q4H PRN Administration Nausea Pantoprazole Sodium 40 mg 03/27/25 21:00 03/28/25 08:50 Pantoprazole 40 Mg Tablet PO 40 mg Q12HR ALENA Administration Sucralfate 1,000 mg 03/27/25 16:30 03/28/25 11:31 Sucralfate Susp 100 Mg/Ml 10 Ml Udc PO 1,000 mg ACHS ALENA Administration Vitamin B Complex/Folic Acid 1 cap 03/25/25 09:00 03/28/25 08:50 Vitamin B Cmplx/Vit C/Folic Ac 1 Capsule PO 1 cap DAILY ALENA Administration Vitamin D 50 mcg 03/25/25 09:00 03/28/25 08:50 Cholecalciferol (Vitamin D3) 25 Mcg (1,000 Units) Tablet PO 50 mcg BID ALENA Administration Radiology Results: ITS Impressions Abdomen/Pelvis CT 03/24/25 20:06 IMPRESSION: 1. Significant thickening of the descending, sigmoid colon and rectum, consistent with colitis, most likely infectious or inflammatory. Ischemia is less favored although not excluded. 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 2: Hypodense 2.6 cm splenic mass. Differential diagnosis includes benign etiologies such as hemangioma, hamartoma and lymphangioma versus malignant lesion such as lymphoma or metastatic disease. 3: Cholelithiasis. 4: Chronic interstitial fibrosis of the lung bases. Head CT 03/26/25 07:25 IMPRESSION: 1. No acute intracranial findings. Chest X-Ray 03/26/25 19:16 Impression: Mild CHF Labs Labs: Laboratory Results - last 24 hr 03/27/25 03/27/25 03/28/25 15:36 19:42 03:44 WBC 13.3 H RBC 3.09 L Hgb 8.2 L Hct 26.7 L MCV 86.4 MCH 26.5 MCHC 30.7 L RDW 18.1 H Plt Count 201 MPV 9.3 Sodium 133 L Potassium 3.5 Chloride 98 Carbon Dioxide 26 Anion Gap 9 BUN 90 H D Creatinine 8.83 H Estim Creat Clear Calc 7 Estimated GFR 6 L Glucose 137 H POC Capillary Glucose 154 H 152 H Calcium 8.1 L Phosphorus 5.8 H Magnesium 2.6 H Albumin 2.3 L 03/28/25 03/28/25 07:09 11:13 WBC RBC Hgb Hct MCV MCH MCHC RDW Plt Count MPV Sodium Potassium Chloride Carbon Dioxide Anion Gap BUN Creatinine Estim Creat Clear Calc Estimated GFR Glucose POC Capillary Glucose 146 H 204 H Calcium Phosphorus Magnesium Albumin
--- NOTE | 2025-03-28 17:10 | P.PNNP_ITS ---
Progress Note: A&P Assessment and Plan (1) End-stage renal disease: Code(s): N18.6 - End stage renal disease Status: Chronic Assessment and Plan: * HD today (refused dialysis yesterday * will eventually transition back to normal M/W/F dialysis schedule * follow electrolytes, volume status, and clearance (2) Erosive esophagitis: Code(s): K22.10 - Ulcer of esophagus without bleeding Status: Acute Assessment and Plan: * likely etiology of coffee ground emesis on admission * as noted on EGD on 03/27 * on PPI and carafate * GI recommendations noted (3) C. difficile colitis: Code(s): A04.72 - Enterocolitis due to Clostridium difficile, not specified as recurrent Status: Acute Assessment and Plan: * as noted by positive toxin assay * on Dificid * continue supportive therapy (4) Anemia: Code(s): D64.9 - Anemia, unspecified Status: Chronic Assessment and Plan: * due to ESRD and #2 * Epogen with HD * follow trend of H/H (5) Paroxysmal atrial fibrillation: Code(s): I48.0 - Paroxysmal atrial fibrillation Status: Inactive Assessment and Plan: * rate control strategy * anticoagulation on hold (6) Hypertension: Code(s): I10 - Essential (primary) hypertension Status: Chronic Assessment and Plan: * on the soft side... 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 difficile colitis * relative hypotension * anemia * PT/OT as tolerated Will continue to follow. L Subjective Date/time seen: 03/28/25 17:10 Interval history: Follow-up for end stage renal disease on hemodialysis. Tolerating dialysis treatment at the time of my visit (seen on HD at 5:00pm); no apparent distress noted when seen but still with diminished oral intake and ongoing diarrhea; only other acute complaint is that of generalize weakness. Exam 2 Narrative: General: elderly but WD/WN male in NAD Heart: normal S1 and S2; no rub Lungs: clear to auscultation Abdomen: soft, nontender, nondistended, positive bowel sounds Extremities: no cyanosis or clubbing; no edema Skin: warm and dry Objective Data Vital Signs Vital Signs: Vital Signs Temp Pulse Resp BP Pulse Ox O2 Del Method 03/28/25 17:00 85 112/48 L 03/28/25 16:45 89 99/57 L 03/28/25 16:30 73 114/74 03/28/25 16:15 92 91/49 L 03/28/25 16:00 105 H 03/28/25 16:00 80 98/36 L 03/28/25 15:31 97 97/47 L 03/28/25 15:30 96 105/82 03/28/25 15:15 85 106/50 L 03/28/25 15:15 85 106/50 L 03/28/25 15:00 69 84/42 L 03/28/25 14:49 89 80/34 L 03/28/25 14:48 95 76/42 L 03/28/25 14:45 92 73/36 L 03/28/25 14:30 96 80/30 L 03/28/25 14:15 96 89/44 L 03/28/25 14:10 86 99/54 L 03/28/25 14:07 97.3 F L 85 15 99/55 L 97 03/28/25 14:00 96 03/28/25 13:55 85 99/55 L 03/28/25 12:01 101/62 03/28/25 12:00 96 03/28/25 12:00 97.6 F 101 H 20 87/48 L 100 03/28/25 11:14 Room Air 03/28/25 10:00 97 03/28/25 08:51 98 03/28/25 08:00 98 03/28/25 07:58 98.3 F 89 18 135/63 100 03/28/25 06:00 95 03/28/25 05:57 98.0 F 101 H 20 100/54 L 94 03/28/25 04:00 99 03/28/25 04:00 98.5 F 94 20 110/62 96 03/28/25 04:00 95 Room Air 03/28/25 02:00 92 03/28/25 00:00 99 03/28/25 00:00 98.4 F 93 20 107/58 L 96 03/28/25 00:00 96 Room Air 03/27/25 22:00 98 03/27/25 20:00 103 H 03/27/25 20:00 93 Room Air 03/27/25 20:00 98.0 F 98 20 106/53 L 97 Intake/Output Intake/Output: Intake & Output 03/25/25 03/26/25 03/27/25 03/28/25 23:59 23:59 23:59 23:59 Intake Total 1467.5 1375.0 120 50 Output Total 95 40 21 0 Balance 1372.5 1335.0 99 50 Meds/Results Medications: Active Medications Generic Name Dose Route Start Last Admin Trade Name Freq PRN Reason Stop Dose Admin Acetaminophen 650 mg 03/24/25 20:52 03/25/25 12:23 Acetaminophen 325 Mg Tablet PO 650 mg Q4H PRN Administration Mild Pain (1-3) or Fever Hydrocodone Bitart/Acetaminophen 1 tab 03/28/25 13:59 03/28/25 14:11 Hydrocodone/Acetaminophen (*Crx) 5-325 Mg Tablet PO 1 tab Q6H PRN Administration Pain Rated 4-6 Apixaban 5 mg 03/25/25 09:00 03/26/25 09:50 Apixaban 5 Mg Tablet PO 5 mg On Hold: 03/26/25 15:42 Q12HR ALENA Administration Carvedilol 12.5 mg 03/25/25 08:00 03/28/25 08:51 Carvedilol 12.5 Mg Tablet PO 12.5 mg BIDWM ALENA Administration Clopidogrel Bisulfate 75 mg 03/25/25 09:00 03/28/25 08:50 Clopidogrel Bisulfate 75 Mg Tablet PO 75 mg DAILY ALENA Administration Dextrose 12.5 gm 03/25/25 05:22 Dextrose 50% 25 Gm/50 Ml Syringe IV PUSH PRN PRN Hypoglycemia Protocol Ferrous Sulfate 325 mg 03/25/25 09:00 03/28/25 08:50 Ferrous Sulfate 325 Mg Tablet PO 325 mg BID ALENA Administration Fidaxomicin 200 mg 03/24/25 22:00 03/28/25 08:50 Fidaxomicin 200 Mg Tablet PO 04/03/25 21:59 200 mg Q12HR ALENA Administration Glucagon 1 mg 03/25/25 05:22 Glucagon For Inj 1 Mg Vial IM PRN PRN Hypoglycemia Protocol Glucose 15 gm 03/25/25 05:22 03/25/25 05:30 Glucose Oral Gel 15 Gm Of Glucse In 37.5 Gm Tube PO 15 gm PRN PRN Administration Hypoglycemia Protocol Dextrose 1,000 mls @ 100 mls/hr 03/25/25 05:22 Dextrose 5% 1,000 Ml IVPB PRN PRN Hypoglycemia Protocol Albumin Human 50 mls @ 999 mls/hr 03/27/25 13:17 Albutein IVPB 04/26/25 13:16 Q10M PRN HYPOTENSION Insulin Aspart 2 - 5 units 03/26/25 17:00 03/28/25 11:36 Insulin Aspart (*Bkc) 100 Units/Ml SUB-Q 2 units TIDWM ALENA Administration Protocol Lidocaine/Prilocaine 1 each 03/27/25 13:22 Lidocaine/Prilocaine Cream 2.5-2.5% Tube TOPICAL WITH DIALYSIS PRN for dialysis Protocol Loratadine 10 mg 03/25/25 09:00 03/27/25 08:42 Loratadine 10 Mg Tablet PO 10 mg Q48HR ALENA Administration Ondansetron HCl 4 mg 03/24/25 20:52 03/26/25 16:14 Ondansetron Inj 4 Mg/2 Ml Vial IV PUSH 4 mg Q4H PRN Administration Nausea Pantoprazole Sodium 40 mg 03/27/25 21:00 03/28/25 08:50 Pantoprazole 40 Mg Tablet PO 40 mg Q12HR ALENA Administration Sucralfate 1,000 mg 03/27/25 16:30 03/28/25 11:31 Sucralfate Susp 100 Mg/Ml 10 Ml Udc PO 1,000 mg ACHS ALENA Administration Vitamin B Complex/Folic Acid 1 cap 03/25/25 09:00 03/28/25 08:50 Vitamin B Cmplx/Vit C/Folic Ac 1 Capsule PO 1 cap DAILY ALENA Administration Vitamin D 50 mcg 03/25/25 09:00 03/28/25 08:50 Cholecalciferol (Vitamin D3) 25 Mcg (1,000 Units) Tablet PO 50 mcg BID ALENA Administration Radiology Results: ITS Impressions Abdomen/Pelvis CT 03/24/25 20:06 IMPRESSION: 1. Significant thickening of the descending, sigmoid colon and rectum, consistent with colitis, most likely infectious or inflammatory. Ischemia is less favored although not excluded. 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 2: Hypodense 2.6 cm splenic mass. Differential diagnosis includes benign etiologies such as hemangioma, hamartoma and lymphangioma versus malignant lesion such as lymphoma or metastatic disease. 3: Cholelithiasis. 4: Chronic interstitial fibrosis of the lung bases. Head CT 03/26/25 07:25 IMPRESSION: 1. No acute intracranial findings. Chest X-Ray 03/26/25 19:16 Impression: Mild CHF Labs Labs: Laboratory Tests 03/28/25 03:44 03/28/25 03:44 Calcium 8.1 L Phosphorus 5.8 H Magnesium 2.6 H Albumin 2.3 L Microbiology 03/24/25 21:48 Blood Blood Culture - Preliminary 03/24/25 21:49 Blood Blood Culture - Preliminary
--- NOTE | 2025-03-28 17:39 | PM.IMPN ---
Progress Note: A&P Assessment and Plan (1) C. difficile colitis: Code(s): A04.72 - Enterocolitis due to Clostridium difficile, not specified as recurrent Status: Acute (2) AMS (altered mental status): Qualifiers: Altered mental status type: unspecified Qualified Code(s): R41.82 - Altered mental status, unspecified Code(s): R41.82 - Altered mental status, unspecified Status: Acute (3) Sepsis: Qualifiers: Sepsis type: sepsis due to unspecified organism Sepsis acute organ dysfunction status: with acute organ dysfunction Severe sepsis acute organ dysfunction type: encephalopathy Severe sepsis shock status: without septic shock Qualified Code(s): A41.9 - Sepsis, unspecified organism; R65.20 - Severe sepsis without septic shock; G93.41 - Metabolic encephalopathy Code(s): A41.9 - Sepsis, unspecified organism Status: Acute (4) Penile lesion: Code(s): N48.9 - Disorder of penis, unspecified Status: Acute (5) Diabetes: Qualifiers: Diabetes mellitus type: type 2 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: without 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 use Diabetes mellitus complication status: with kidney complications Diabetes mellitus complication detail: with chronic kidney disease Chronic kidney disease stage: on chronic dialysis Qualified Code(s): E11.22 - Type 2 diabetes mellitus with diabetic chronic kidney disease; N18.6 - End stage renal disease; Z99.2 - Dependence on renal dialysis Code(s): E11.9 - Type 2 diabetes mellitus without complications Status: Acute (6) Dependence on nocturnal oxygen therapy: Code(s): Z99.81 - Dependence on supplemental oxygen Status: Acute (7) Chronic anticoagulation: Code(s): Z79.01 - penitentiary (current) use of anticoagulants Status: Acute (8) Atrial fibrillation: Qualifiers: Atrial fibrillation type: permanent Qualified Code(s): I48.21 - Permanent atrial fibrillation Code(s): I48.91 - Unspecified atrial fibrillation Status: Acute Plan 79 y/o had been taking his Cipro and doxycycline and presented with weakness and confusion, is found to be positive with C diff has developed sepsis, being treated with Deficid 200mg q12, patient continue to have loose BM , his potassium is low 2/2 diarrhea, will supplement and monitor. as patient's stools form further recommendation to follow. on 03/26 patient had an episode coffee ground emesis, seen by GI and had EGD which showed patient has severe esophagitis, today patient feels quite depressed, he is not sure he want to continue treatment and does not want to do dialysis, patient is leaning toward palliative care, seen child caregiver private home and further recommendation to follow. Patient has sepsis due to C diff colitis with recent antibiotic use. Sepsis criteria met with tachycardia, leukocytosis in the setting of colitis on imaging with borderline hypotension. Lactic acid was added but was normal but patient did have elevated procalcitonin and has significant bandemia on CBC. Will discontinue outpatient Cipro and doxycycline the patient the patient had previously been discharged drawn. Will place the patient on Dificid p.o. b.i.d.. Patient received 500 mL of isotonic fluids at 150 mL an hour. 30 mL/kilos fluid bolus not administered due to the patient's history of CHF and end-stage renal disease. Will obtain blood cultures and repeat CBC in a.m.. Patient did have some altered mental status but a patient's mentation at the time my evaluation had actually improved compared to his prior hospitalization. Altered mental status likely due to metabolic encephalopathy from acute infection and illness. However cannot her rule out some underlying mild cognitive impairment. Patient would benefit from neuro cognitive testing on discharge. Patient has penile ulceration at the meatus that was debrided during last hospitalization. There seems to be a moderate amount of cloudy white drainage less purulent in appearance than during prior hospitalization. Will hold off on any antibiotic therapy in will apply topical care with Xeroform gauze. Sheriff catheter was exchanged in the ER. Patient has indwelling catheter due to history of atonic bladder. Patient has diabetes but is currently euglycemic. Will hold oral hypoglycemic agents. Will place patient on Accu-Cheks a.c. HS and will add hypoglycemia protocol. Repeat labs in morning did demonstrate hypoglycemia with supplements provided. Patient had hypokalemia on repeat labs in a.m. with 40 mEq potassium chloride administered. Will repeat electrolyte panel daily until stable. Patient has chronic AFib but is currently rate controlled. Will continue home Eliquis and Coreg. Patient does have chronic CHF buttock currently appears intervascular volume depleted. Will hold home Lasix and will hold hydralazine given borderline hypotension. Subjective Date/time seen: 03/28/25 17:39 Interval history: Weakness and confusion Narrative: 79-year-old male well known to me from prior hospitalizations with past medical history of end-stage renal disease on hemodialysis Thursday, essential hypertension, type 2 diabetes mellitus, grade 2 diastolic dysfunction, peripheral artery disease, neurogenic bladder with chronic indwelling Sheriff catheter with necrosis of the penile meatus who presented to the ER via EMS from dialysis due to weakness and confusion. Patient was recently hospitalized 03/17/2025 through 03/19/2025 due to failure to thrive, necrosis of the tip of the penis with cystoscopy and downsizing of his Sheriff catheter with debridement of his penile meatus. He was discharged home on Cipro and doxycycline for prior culture of the meatus result from February demonstrating Serratia and MRSA. While in the ER the patient had a large incontinent bowel movement of diarrhea. The patient reports that he has been having diarrhea since the 2nd day after being discharged from the hospital. He is having numerous diarrheal stools a day. His stools are mushy and watery. He has started having fevers and chills over the last 2 days. He has had significant decrease in appetite. He reports that he feels like he has lost weight. He denies any chest pain or shortness of breath. He reports that he has feels overtly weak. He reports feeling nauseous but not having any significant vomiting. He does still produce a small amount of urine and has a Sheriff catheter in place. According to the Urology note patient had Sheriff catheter in place for about 3 weeks prior to his previous admission. In the ER CT scan demonstrated colitis and he had marked leukocytosis. Is electrolyte panel was stable. C diff PCR was found to be positive. The patient's blood pressures in the ER were soft with systolic blood pressures in the 90s and when the patient arrived to the ER his heart rate was initially in the 120s to 130s in AFib. He denies missing any medications. He has been continuing to take the Cipro and Flagyl that he was discharged on. 79 y/o had been taking his Cipro and doxycycline and presented with weakness and confusion, is found to be positive with C diff has developed sepsis, being treated with Deficid 200mg q12, patient continue to have loose BM , his potassium is low 2/2 diarrhea, will supplement and monitor. as patient's stools form further recommendation to follow. on 03/26 patient had an episode coffee ground emesis, seen by GI and had EGD which showed patient has severe esophagitis, today patient feels quite depressed, he is not sure he want to continue treatment and does not want to do dialysis, patient is leaning toward palliative care, seen child caregiver private home and further recommendation to follow. Review of Systems Review of Systems: 12 systems were reviewed with pertinent positives and negatives per HPI. Except as documented in the HPI, all other systems were reviewed and are negative. Exam Narrative: Patient is comfortable, NAD HEENT: eyes are clear and none icteric LUNGS:CTA HEART: RR S1S2 ABD: BS+, Soft and nontender Lower extremities: no edema SKIN: nonjaundiced Neuro: grossly intact. Objective Data Vital Signs Vital Signs: Vital Signs - 24 hr 03/27/25 18:00 03/27/25 20:00 03/27/25 20:00 Temperature 36.7 C Pulse Rate 105 H 98 93 Respiratory Rate 20 Blood Pressure 106/53 L Pulse Oximetry 97 Oxygen Delivery Room Air 03/27/25 20:00 03/27/25 22:00 03/28/25 00:00 Temperature Pulse Rate 103 H 98 96 Respiratory Rate Blood Pressure Pulse Oximetry Oxygen Delivery Room Air 03/28/25 00:00 03/28/25 00:00 03/28/25 02:00 Temperature 36.9 C Pulse Rate 93 99 92 Respiratory Rate 20 Blood Pressure 107/58 L Pulse Oximetry 96 Oxygen Delivery 03/28/25 04:00 03/28/25 04:00 03/28/25 04:00 Temperature 36.9 C Pulse Rate 95 94 99 Respiratory Rate 20 Blood Pressure 110/62 Pulse Oximetry 96 Oxygen Delivery Room Air 03/28/25 05:57 03/28/25 06:00 03/28/25 07:58 Temperature 36.7 C 36.8 C Pulse Rate 101 H 95 89 Respiratory Rate 20 18 Blood Pressure 100/54 L 135/63 Pulse Oximetry 94 100 Oxygen Delivery 03/28/25 08:00 03/28/25 08:51 03/28/25 10:00 Temperature Pulse Rate 98 98 97 Respiratory Rate Blood Pressure Pulse Oximetry Oxygen Delivery 03/28/25 11:14 03/28/25 12:00 03/28/25 12:00 Temperature 36.4 C Pulse Rate 101 H 96 Respiratory Rate 20 Blood Pressure 87/48 L Pulse Oximetry 100 Oxygen Delivery Room Air 03/28/25 12:01 03/28/25 13:55 03/28/25 14:00 Temperature Pulse Rate 85 96 Respiratory Rate Blood Pressure 101/62 99/55 L Pulse Oximetry Oxygen Delivery 03/28/25 14:07 03/28/25 14:10 03/28/25 14:15 Temperature 36.3 C L Pulse Rate 85 86 96 Respiratory Rate 15 Blood Pressure 99/55 L 99/54 L 89/44 L Pulse Oximetry 97 Oxygen Delivery 03/28/25 14:30 03/28/25 14:45 03/28/25 14:48 Temperature Pulse Rate 96 92 95 Respiratory Rate Blood Pressure 80/30 L 73/36 L 76/42 L Pulse Oximetry Oxygen Delivery 03/28/25 14:49 03/28/25 15:00 03/28/25 15:15 Temperature Pulse Rate 89 69 85 Respiratory Rate Blood Pressure 80/34 L 84/42 L 106/50 L Pulse Oximetry Oxygen Delivery 03/28/25 15:15 03/28/25 15:30 03/28/25 15:31 Temperature Pulse Rate 85 96 97 Respiratory Rate Blood Pressure 106/50 L 105/82 97/47 L Pulse Oximetry Oxygen Delivery 03/28/25 16:00 03/28/25 16:00 03/28/25 16:15 Temperature Pulse Rate 80 105 H 92 Respiratory Rate Blood Pressure 98/36 L 91/49 L Pulse Oximetry Oxygen Delivery 03/28/25 16:30 03/28/25 16:45 03/28/25 17:00 Temperature Pulse Rate 73 89 85 Respiratory Rate Blood Pressure 114/74 99/57 L 112/48 L Pulse Oximetry Oxygen Delivery Intake/Output Intake/Output: Intake & Output 03/25/25 03/26/25 03/27/25 03/28/25 23:59 23:59 23:59 23:59 Intake Total 1467.5 1375.0 120 50 Output Total 95 40 21 Balance 1372.5 1335.0 99 50 Meds/Results Medications: Active Medications Generic Name Dose Route Start Last Admin Trade Name Freq PRN Reason Stop Dose Admin Acetaminophen 650 mg 03/24/25 20:52 03/25/25 12:23 Acetaminophen 325 Mg Tablet PO 650 mg Q4H PRN Administration Mild Pain (1-3) or Fever Hydrocodone Bitart/Acetaminophen 1 tab 03/28/25 13:59 03/28/25 14:11 Hydrocodone/Acetaminophen (*Crx) 5-325 Mg Tablet PO 1 tab Q6H PRN Administration Pain Rated 4-6 Apixaban 5 mg 03/25/25 09:00 03/26/25 09:50 Apixaban 5 Mg Tablet PO 5 mg On Hold: 03/26/25 15:42 Q12HR ALENA Administration Carvedilol 12.5 mg 03/25/25 08:00 03/28/25 08:51 Carvedilol 12.5 Mg Tablet PO 12.5 mg BIDWM ALENA Administration Clopidogrel Bisulfate 75 mg 03/25/25 09:00 03/28/25 08:50 Clopidogrel Bisulfate 75 Mg Tablet PO 75 mg DAILY ALENA Administration Dextrose 12.5 gm 03/25/25 05:22 Dextrose 50% 25 Gm/50 Ml Syringe IV PUSH PRN PRN Hypoglycemia Protocol Ferrous Sulfate 325 mg 03/25/25 09:00 03/28/25 08:50 Ferrous Sulfate 325 Mg Tablet PO 325 mg BID ALENA Administration Fidaxomicin 200 mg 03/24/25 22:00 03/28/25 08:50 Fidaxomicin 200 Mg Tablet PO 04/03/25 21:59 200 mg Q12HR ALENA Administration Glucagon 1 mg 03/25/25 05:22 Glucagon For Inj 1 Mg Vial IM PRN PRN Hypoglycemia Protocol Glucose 15 gm 03/25/25 05:22 03/25/25 05:30 Glucose Oral Gel 15 Gm Of Glucse In 37.5 Gm Tube PO 15 gm PRN PRN Administration Hypoglycemia Protocol Dextrose 1,000 mls @ 100 mls/hr 03/25/25 05:22 Dextrose 5% 1,000 Ml IVPB PRN PRN Hypoglycemia Protocol Albumin Human 50 mls @ 999 mls/hr 03/27/25 13:17 Albutein IVPB 04/26/25 13:16 Q10M PRN HYPOTENSION Insulin Aspart 2 - 5 units 03/26/25 17:00 03/28/25 11:36 Insulin Aspart (*Bkc) 100 Units/Ml SUB-Q 2 units TIDWM ALENA Administration Protocol Lidocaine/Prilocaine 1 each 03/27/25 13:22 Lidocaine/Prilocaine Cream 2.5-2.5% Tube TOPICAL WITH DIALYSIS PRN for dialysis Protocol Loratadine 10 mg 03/25/25 09:00 03/27/25 08:42 Loratadine 10 Mg Tablet PO 10 mg Q48HR ALENA Administration Ondansetron HCl 4 mg 03/24/25 20:52 03/26/25 16:14 Ondansetron Inj 4 Mg/2 Ml Vial IV PUSH 4 mg Q4H PRN Administration Nausea Pantoprazole Sodium 40 mg 03/27/25 21:00 03/28/25 08:50 Pantoprazole 40 Mg Tablet PO 40 mg Q12HR ALENA Administration Sucralfate 1,000 mg 03/27/25 16:30 03/28/25 11:31 Sucralfate Susp 100 Mg/Ml 10 Ml Udc PO 1,000 mg ACHS ALENA Administration Vitamin B Complex/Folic Acid 1 cap 03/25/25 09:00 03/28/25 08:50 Vitamin B Cmplx/Vit C/Folic Ac 1 Capsule PO 1 cap DAILY ALENA Administration Vitamin D 50 mcg 03/25/25 09:00 03/28/25 08:50 Cholecalciferol (Vitamin D3) 25 Mcg (1,000 Units) Tablet PO 50 mcg BID ALENA Administration Radiology Results: ITS Impressions Abdomen/Pelvis CT 03/24/25 20:06 IMPRESSION: 1. Significant thickening of the descending, sigmoid colon and rectum, consistent with colitis, most likely infectious or inflammatory. Ischemia is less favored although not excluded. 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 2: Hypodense 2.6 cm splenic mass. Differential diagnosis includes benign etiologies such as hemangioma, hamartoma and lymphangioma versus malignant lesion such as lymphoma or metastatic disease. 3: Cholelithiasis. 4: Chronic interstitial fibrosis of the lung bases. Head CT 03/26/25 07:25 IMPRESSION: 1. No acute intracranial findings. Chest X-Ray 03/26/25 19:16 Impression: Mild CHF Labs Labs: Laboratory Results - last 24 hr 03/27/25 03/28/25 03/28/25 19:42 03:44 07:09 WBC 13.3 H RBC 3.09 L Hgb 8.2 L Hct 26.7 L MCV 86.4 MCH 26.5 MCHC 30.7 L RDW 18.1 H Plt Count 201 MPV 9.3 Sodium 133 L Potassium 3.5 Chloride 98 Carbon Dioxide 26 Anion Gap 9 BUN 90 H D Creatinine 8.83 H Estim Creat Clear Calc 7 Estimated GFR 6 L Glucose 137 H POC Capillary Glucose 152 H 146 H Calcium 8.1 L Phosphorus 5.8 H Magnesium 2.6 H Albumin 2.3 L 03/28/25 11:13 WBC RBC Hgb Hct MCV MCH MCHC RDW Plt Count MPV Sodium Potassium Chloride Carbon Dioxide Anion Gap BUN Creatinine Estim Creat Clear Calc Estimated GFR Glucose POC Capillary Glucose 204 H Calcium Phosphorus Magnesium Albumin Quality VTE Prophylaxis VTE prophylaxis: pharmacologic ordered (Continue home Eliquis)
[2025-03-29] VITALS (8 sets, daily range): BP systolic 113–152; BP diastolic 50–72; PULSE 88–115; RESP 19–20; TEMP 36.6–37.1; O2SAT 97–100
--- NOTE | 2025-03-29 05:46 | PC.NURSE ---
Patient refusing AM labs, pt is A&O X3, stated he will be refusing everything moving forward and that he wishes to go home today. Dr. Marcelino made aware by this RN.
[2025-03-29] MEDS: SUCRALFATE SUSP 100 MG/ML 10 ML UDC 1000 MG PO ×2 (06:39→10:57)
[2025-03-29] MEDS: VITAMIN B CMPLX/VIT C/FOLIC AC 1 CAPSULE 1 CAP PO (09:59)
[2025-03-29] MEDS: CHOLECALCIFEROL (VITAMIN D3) 25 MCG (1,000 UNITS) TABLET 50 MCG PO (09:59)
[2025-03-29] MEDS: FIDAXOMICIN 200 MG TABLET PO (09:59)
[2025-03-29] MEDS: FERROUS SULFATE 325 MG TABLET PO (09:59)
[2025-03-29] MEDS: CLOPIDOGREL BISULFATE 75 MG TABLET PO (10:00)
[2025-03-29] MEDS: PANTOPRAZOLE 40 MG TABLET PO (10:00)
[2025-03-29] MEDS: LORATADINE 10 MG TABLET PO (10:00)
[2025-03-29] MEDS: ONDANSETRON INJ 4 MG/2 ML VIAL IV PUSH (10:57)
--- NOTE | 2025-03-29 11:26 | P.DS_ITS ---
DS: Admitting Diagnosis Discharge Date 03/29/25 Admitting Diagnosis Weakness and confusion DS: Discharge Diagnosis Discharge Diagnosis (1) C. difficile colitis: Code(s): A04.72 - Enterocolitis due to Clostridium difficile, not specified as recurrent Status: Acute (2) AMS (altered mental status): Qualifiers: Altered mental status type: unspecified Qualified Code(s): R41.82 - Altered mental status, unspecified Code(s): R41.82 - Altered mental status, unspecified Status: Acute (3) Sepsis: Qualifiers: Sepsis type: sepsis due to unspecified organism Sepsis acute organ dysfunction status: with acute organ dysfunction Severe sepsis acute organ dysfunction type: encephalopathy Severe sepsis shock status: without septic shock Qualified Code(s): A41.9 - Sepsis, unspecified organism; R65.20 - Severe sepsis without septic shock; G93.41 - Metabolic encephalopathy Code(s): A41.9 - Sepsis, unspecified organism Status: Acute (4) Penile lesion: Code(s): N48.9 - Disorder of penis, unspecified Status: Acute (5) Diabetes: Qualifiers: Diabetes mellitus type: type 2 Diabetes mellitus detention insulin use: without ad terminal makeup operator use Diabetes mellitus complication status: with kidney complications Diabetes mellitus complication detail: with chronic kidney disease Chronic kidney disease stage: on chronic dialysis Qualified Code(s): E11.22 - Type 2 diabetes mellitus with diabetic chronic kidney disease; N18.6 - End stage renal disease; Z99.2 - Dependence on renal dialysis Code(s): E11.9 - Type 2 diabetes mellitus without complications Status: Acute (6) Dependence on nocturnal oxygen therapy: Code(s): Z99.81 - Dependence on supplemental oxygen Status: Acute (7) Chronic anticoagulation: Code(s): Z79.01 - terminal superintendent (current) use of anticoagulants Status: Acute (8) Atrial fibrillation: Qualifiers: Atrial fibrillation type: permanent Qualified Code(s): I48.21 - Permanent atrial fibrillation Code(s): I48.91 - Unspecified atrial fibrillation Status: Acute Plan 79 y/o had been taking his Cipro and doxycycline and presented with weakness and confusion, is found to be positive with C diff has developed sepsis, being treated with Deficid 200mg q12, patient continue to have loose BM , his potassium is low 2/2 diarrhea, will supplement and monitor. as patient's stools form further recommendation to follow. on 03/26 patient had an episode coffee ground emesis, seen by GI and had EGD which showed patient has severe esophagitis, today patient feels quite depressed, he is not sure he want to continue treatment and does not want to do dialysis, patient is leaning toward palliative care, seen daytime caregiver and further recommendation to follow. Patient has sepsis due to C diff colitis with recent antibiotic use. Sepsis criteria met with tachycardia, leukocytosis in the setting of colitis on imaging with borderline hypotension. Lactic acid was added but was normal but patient did have elevated procalcitonin and has significant bandemia on CBC. Will discontinue outpatient Cipro and doxycycline the patient the patient had previously been discharged drawn. Will place the patient on Dificid p.o. b.i.d.. Patient received 500 mL of isotonic fluids at 150 mL an hour. 30 mL/kilos fluid bolus not administered due to the patient's history of CHF and end-stage renal disease. Will obtain blood cultures and repeat CBC in a.m.. Patient did have some altered mental status but a patient's mentation at the time my evaluation had actually improved compared to his prior hospitalization. Altered mental status likely due to metabolic encephalopathy from acute infection and illness. However cannot her rule out some underlying mild cognitive impairment. Patient would benefit from neuro cognitive testing on discharge. Patient has penile ulceration at the meatus that was debrided during last hospitalization. There seems to be a moderate amount of cloudy white drainage less purulent in appearance than during prior hospitalization. Will hold off on any antibiotic therapy in will apply topical care with Xeroform gauze. Sheriff catheter was exchanged in the ER. Patient has indwelling catheter due to history of atonic bladder. Patient has diabetes but is currently euglycemic. Will hold oral hypoglycemic agents. Will place patient on Accu-Cheks a.c. HS and will add hypoglycemia protocol. Repeat labs in morning did demonstrate hypoglycemia with supplements provided. Patient had hypokalemia on repeat labs in a.m. with 40 mEq potassium chloride administered. Will repeat electrolyte panel daily until stable. Patient has chronic AFib but is currently rate controlled. Will continue home Eliquis and Coreg. Patient does have chronic CHF buttock currently appears intervascular volume depleted. Will hold home Lasix and will hold hydralazine given borderline hypotension. DS: Summary Hospital Course Hospital Course: 79 y/o had been taking his Cipro and doxycycline and presented with weakness and confusion, is found to be positive with C diff has developed sepsis, being treated with Deficid 200mg q12, patient continue to have loose BM , his potassium is low 2/2 diarrhea, will supplement and monitor. as patient's stools form further recommendation to follow. on 03/26 patient had an episode coffee ground emesis, seen by GI and had EGD which showed patient has severe esophagitis, today patient feels quite depressed, he is not sure he want to continue treatment and does not want to do dialysis, patient is leaning toward palliative care, seen daytime caregiver and further recommendation to follow. patient is being discharged home and family is aware of C diff and willing to manage patient at home. family is considering palliative care for the patient upon discharged home. A Referral was made to [facility] to meet with you in regards to palliative care. [facility] can be contacted at [phone]. Time Spent with Patient Time attestation: Total time spent providing and/or coordinating discharge services: Exam Narrative: Patient is comfortable, NAD HEENT: eyes are clear and none icteric LUNGS:CTA HEART: RR S1S2 ABD: BS+, Soft and nontender Lower extremities: no edema SKIN: nonjaundiced Neuro: grossly intact. DS: Data Data Completed and Pending Completed studies during hospitalization: Pending at discharge 03/27/25 14:01 Surgical [PTH] Routine Labs on day of discharge: Labs from last 24 hours 03/28/25 03/28/25 20:57 18:02 POC Capillary Glucose 207 H 147 H Preliminary micro results at discharge 03/24/25 21:48 Blood Culture - Preliminary Blood 03/24/25 21:49 Blood Culture - Preliminary Blood Discharge Plan Discharge Attending physician on discharge: Rebecca Marcelino Consulting providers: Leonard Mckeon; Wilfrido Bowling; Corby Hardin; Paris Navarrete; Jose Maria; Buck Medina; Janusz Vickers; Richard Rodriguez; Pop Solo Discharging Clinician: [facility] Patient Disposition: Home with Home Health Service Activity: as tolerated Diet: heart healthy Discharge Instructions: -Per Care Coordination: [facility] will resume services at discharge. [facility] will follow for RN and PT/OT eval and treat. [facility] can be -contacted at [phone]. patient is being discharged home and family is aware of C diff and willing to manage patient at home. family is considering palliative care for the patient upon discharged home. A Referral was made to [facility] to meet with you in regards to palliative care. [facility] can be contacted at [phone]. patient to follow up with her primary care provider as soon as possible Patient Instructions: Antibiotic Form, Apixaban (By mouth) Patient Language: Niuean Stand Alone Forms: General Discharge Information Follow-up/Referrals: Leonard Mckeon MD [Physician, Nephrology] Kerry Walker DO [Primary Care Provider, Family Practice] Discharge Medications: New hydrocodone-acetaminophen 5-325 mg Tablet 1 tablet PO Q6H PRN (Reason: Pain Rated 4-6) Qty: 10 0RF sucralfate 100 mg/mL Suspension 1,000 mg PO ACHS Qty: 1000 0RF lidocaine-prilocaine 2.5-2.5 % Cream 0.5 g topical WITH DIALYSIS PRN (Reason: for dialysis) Qty: 30 0RF pantoprazole 40 mg Tablet,Delayed Release (Dr/Ec) 40 mg PO Q12HR Qty: 60 0RF fidaxomicin [Dificid] 200 mg Tablet 200 mg PO Q12HR Qty: 14 0RF Continued clopidogrel 75 mg tablet 75 mg PO DAILY coenzyme [id number] E 100-100 mg-unit capsule 1 cap PO DAILY hydralazine 25 mg Tablet 50 mg PO BID ciprofloxacin HCl 750 mg tablet 750 mg PO Q12H Qty: 14 0RF ferrous sulfate [Iron (ferrous sulfate)] 325 mg (65 mg iron) Tablet 325 mg PO BID Eliquis 5 mg tablet 5 mg PO BID (DME) blood-glucose meter [Nopsecuch Ultra2 Meter] Kit See Rx Instructions .Route Qty: 1 0RF Rx Instructions: use to check blood sugar qd carvedilol 12.5 mg tablet See Rx Instructions .ROUTE .COMPLEX Qty: 180 3RF Dose Instruction: TAKE 1 TABLET BY MOUTH TWICE DAILY WITH MEALS Rx Instructions: TAKE 1 TABLET BY MOUTH TWICE DAILY WITH MEALS (DME) Accu-Chek Guide test strips Strip See Rx Instructions .Route Qty: 100 2RF Rx Instructions: Use to check blood glucose level once daily. (DME) blood-glucose meter [Accu-Chek Guide Me Glucose Mtr] Misc See Rx Instructions .Route Qty: 1 0RF Rx Instructions: Use to check blood glucose level once daily. (DME) lancets [OneTouch Delica Plus Lancet] 30 gauge misc See Rx Instructions .ROUTE .COMPLEX Qty: 100 1RF Dose Instruction: USE 1 UNIT TO CHECK GLUCOSE ONCE DAILY Rx Instructions: USE 1 UNIT TO CHECK GLUCOSE ONCE DAILY glipizide 5 mg tablet See Rx Instructions .ROUTE .COMPLEX Qty: 180 1RF Dose Instruction: Take 1 tablet by mouth twice daily Rx Instructions: Take 1 tablet by mouth twice daily Triphrocaps 1 mg capsule See Rx Instructions .ROUTE .COMPLEX Qty: 90 1RF Dose Instruction: Take 1 capsule by mouth once daily Rx Instructions: Take 1 capsule by mouth once daily rosuvastatin 10 mg Tablet 10 mg PO DAILY loratadine 10 mg Capsule 10 mg PO EVERY OTHER DAY cholecalciferol (vitamin D3) 50 mcg (2,000 unit) Tablet 50 mcg PO BID Qty: 30 0RF Held furosemide 40 mg tablet See Rx Instructions .ROUTE .COMPLEX Qty: 180 0RF Hold Instructions: until seen by his primary care Dose Instruction: Take 1 tablet by mouth twice daily Rx Instructions: Take 1 tablet by mouth twice daily Discontinued doxycycline hyclate 100 mg tablet 100 mg PO BID Qty: 14 0RF Date of admission: 03/26/25 11:53 Primary Care Provider: Kerry Walker Admitting Provider: Rebecca Marcelino Attending physician on admission: [facility] Condition: Stable
--- NOTE | 2025-03-29 15:50 | PC.NURSE ---
Catie made aware pt is being transferred via ambulance, home, at this time. Verbalizes understanding.
== END 2025-03-29 15:32 | disposition home health service (06) | DRG 871 ==
LOC: ANHED 20:27 → ANHIMU 03-25 01:44
PROVIDERS: Internal Medicine Gastroenterology; Student in an Organized Health Care Education/Training Program; Admitting Provider Internal Medicine; Emergency Provider Family Medicine; PCP Family Medicine; Visit Provider Family Medicine
PROC: 0DJ08ZZ Inspection of Upper Intestinal Tract, Via Natural or Artificial Opening Endoscopic (ICD-10-PCS; principal; 2025-03-27 15:00)
DX: A41.9 Sepsis, unspecified organism (principal); G93.41 Metabolic encephalopathy; N18.6 End stage renal disease; K21.01 Gastro-esophageal reflux disease with esophagitis, with bleeding; A04.72 Enterocolitis due to Clostridium difficile, not specified as recurrent; I50.42 Chronic combined systolic (congestive) and diastolic (congestive) heart failure; I13.2 Hypertensive heart and chronic kidney disease with heart failure and with stage 5 chronic kidney disease, or end stage renal disease; N25.81 Secondary hyperparathyroidism of renal origin; I69.351 Hemiplegia and hemiparesis following cerebral infarction affecting right dominant side; I48.21 Permanent atrial fibrillation; K92.0 Hematemesis; E11.22 Type 2 diabetes mellitus with diabetic chronic kidney disease; E11.42 Type 2 diabetes mellitus with diabetic polyneuropathy; E11.319 Type 2 diabetes mellitus with unspecified diabetic retinopathy without macular edema; N48.9 Disorder of penis, unspecified; L89.152 Pressure ulcer of sacral region, stage 2; E78.5 Hyperlipidemia, unspecified; L30.9 Dermatitis, unspecified; I73.9 Peripheral vascular disease, unspecified; D63.8 Anemia in other chronic diseases classified elsewhere; E87.6 Hypokalemia; M35.3 Polymyalgia rheumatica; I48.0 Paroxysmal atrial fibrillation; N31.9 Neuromuscular dysfunction of bladder, unspecified; N31.2 Flaccid neuropathic bladder, not elsewhere classified; Z99.2 Dependence on renal dialysis; Z99.81 Dependence on supplemental oxygen; Z79.01 Long term (current) use of anticoagulants; Z85.46 Personal history of malignant neoplasm of prostate; Z96.1 Presence of intraocular lens; Z98.42 Cataract extraction status, left eye; Z98.41 Cataract extraction status, right eye; R62.7 Adult failure to thrive; Z68.24 Body mass index [BMI] 24.0-24.9, adult
CPT/HCPCS: 36415; 70450; 71045; 74176; 80048; 80053; 80069; 82948; 83605; 83735; 83880; 84100; 84145; 85014; 85018; 85025; 85027; 87040; 87324; 87449; 87493; 87641; 88305; 88342; 93005; 96361; 96365; 97162; 99285; A9270; G0257; G0378; J1815; J1836; J1938; J2405; J2470; J2704; J3480; J7030; J7040; J7121